=== PATIENT | male | born 1965 | race Hispanic/Latino ===

== ENCOUNTER 2016-06-05 23:05 | Inpatient (IN) | payer MEDICAID ==
[2016-06-05 23:22] VITALS: BMI 27.1
--- NOTE | 2016-06-05 23:22 | ED PDOC ---
Arrival/HPI - General Time Seen by Provider: 06/05/16 23:07 Historian: Patient - History of Present Illness Narrative History of Present Illness (Text): 06/05/16 23:19 Elvis Ybarra is a 50 year old male, whose past medical history includes tachy -viki syndrome s/p pacemaker placement, paroxysmmal atrial fibrillation, cardiomyopathy, hypertension, PUD, alcohol abuse, perforated ulcer/GI bleed, and gastric bypass, who presents to the ED complaining of palpitations. Patient states he was sitting at home prior to arrival when he began experiencing palpitations with associated mid-sternal chest pain. Patient reports symptoms feel similar to previous episodes of atrial fibrillation. Patient on arrival to ED found to be in rapid atrial fibrillation. Patient denies any fever, chills, shortness of breath, nausea, vomiting, diarrhea, urinary symptoms, back pain, neck pain, headache, dizziness, or any other complaints. Time/Duration: Other (tonight) Symptom Onset: Sudden Symptom Course: Unchanged Activities at Onset: Rest, Light Context: Sitting, Home Past Medical History - Provider Review Nursing Documentation Reviewed: Yes - Past History Past History: No Previous (hx of afib, svt) - Infectious Disease Hx of Infectious Diseases: None - Tetanus Immunization Tetanus Immunization: Unknown - Cardiac Hx Cardiac Disorders: Yes Hx Cardiac Arrhythmia: Yes (svt palpitations a fib) Hx Pacemaker: Yes Hx Peripheral Edema: Yes Other/Comment: truncus arteriosis congenital heart disease, sick sinus syndrome , malfunction of heart rhythm, cardiomyopathy - Pulmonary Hx Chronic Obstructive Pulmonary Disease (COPD): No - Neurological HX Cerebrovascular Accident: No Hx Dizziness: Yes Hx Seizures: (pt denies) - HEENT Hx HEENT Disorder: Yes (eyeglasses) Hx Blind: No Hx Cataracts: No Hx Deafness: No Hx Difficulty Chewing: No Hx Epistaxis: No Hx Glaucoma: No Hx Macular Degeneration: No Other/Comment: 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 related noise exposure - Renal Hx Renal Failure: No - Endocrine/Metabolic Hx Diabetes Mellitus Type 1: No Hx Diabetes Mellitus Type 2: No Hx Hypothyroidism: No - Hematological/Oncological Hx AIDS: No Hx Anemia: No Hx Cancer: No Hx Chemotherapy: No Hx Cirrhosis: No Hx Hemophilia: No Hx Hepatitis A: No Hx Hepatitis B: No Hx Hepatitis C: No Hx Metastasis: No Hx Shingles: No Hx Sickle Cell Disease: No Hx Unexplained Bleeding: No - Integumentary Hx Dermatological Disorder: No Hx Basal Cell Carcinoma: No Hx Eczema: No Hx Melanoma: No Hx Psoriasis: No Hx Squamous Cell Carcinoma: No Other/Comment: tatoos, bruise to left abd and rib area - Musculoskeletal/Rheumatological Hx Falls: Yes (fell in bathroom last night at home) - Gastrointestinal Hx Gastrointestinal Disorders: Yes Hx Colostomy: No Hx Crohn's Disease: No Hx Diverticulitis: No Hx Gall Bladder Disease: No Hx Gastroesophageal Reflux: Yes Hx Ileostomy: No Hx Liver Failure: No Hx Pancreatitis: No HX Swallowing Problems: No Other/Comment: perforated ulcer X2, had sx twice, rectal bleeding due to perforations - Genitourinary/Gynecological Hx Hematuria: No Hx Incontinence: No Hx Prostate Problems: No Hx Sexually Transmitted Diseases: No Hx Urinary Tract Infection: No - Psychiatric Hx Substance Use: (pt denies) - Surgical History Hx Amputation: No Hx Appendectomy: No Hx Cardiac Catheterization: No Hx Cholecystectomy: No Hx Coronary Stent: No Hx Gastric Bypass Surgery: Yes (around 10 yrs ago used to weigh 360 lbs) Hx Hysterectomy: No Hx Joint Replacement: No Hx Kidney Transplant: No Hx Liver Transplant: No Hx Mastectomy: No Hx Musculoskeletal Surgery: No Hx Open Heart Surgery: No Hx Orthopedic Surgery: No Hx Splenectomy: No Hx Valve Replacement: No - Anesthesia Hx Anesthesia: Yes Hx Anesthesia Reactions: No Hx Malignant Hyperthermia: No - Suicidal Assessment Feels Threatened In Home Enviroment: No Family/Social History - Physician Review Nursing Documentation Reviewed: Yes Family/Social History: No Known Family HX Smoking Status: cigar 2x/y Hx Alcohol Use: Yes (1 case beer daily) Amount per day: 6 Hx Substance Use: (pt denies) Hx Substance Use Treatment: No Allergies/Home Meds Allergies/Adverse Reactions: Allergies No Known Allergies Allergy (Verified 04/19/16 23:35) Home Medications: Home Meds Medication Instructions Recorded Confirmed Ferrous Sulfate [Feosol] 324 mg PO TID 04/19/16 06/07/16 Multivitamin [Multivitamins] 1 cap PO DAILY 04/19/16 06/07/16 Review of Systems - Physician Review All systems were reviewed & negative as marked: Yes - Review of Systems Constitutional: Normal. absent: Fevers Eyes: Normal ENT: Normal Respiratory: Normal. absent: SOB, Cough Cardiovascular: Chest Pain, Palpitations Gastrointestinal: Normal. absent: Abdominal Pain, Diarrhea, Nausea, Vomiting Genitourinary Male: Normal. absent: Dysuria, Frequency, Hematuria, Urinary Output Changes Musculoskeletal: Normal. absent: Back Pain, Neck Pain Skin: Normal. absent: Rash Neurological: Normal. absent: Headache, Dizziness Endocrine: Normal Hemo/Lymphatic: Normal Psychiatric: Normal Physical Exam Vital Signs Reviewed: Yes Vital Signs Temp Pulse Resp BP Pulse Ox 06/06/16 01:15 109 H 17 123/57 L 100 06/06/16 00:54 108 H 17 125/67 100 06/06/16 00:29 93 H 16 117/63 100 06/06/16 00:04 96 H 15 123/63 99 06/05/16 23:36 105 H 18 108/62 98 06/05/16 23:25 176 H 128/56 L 06/05/16 23:06 97.7 F 171 H 18 128/54 L 99 Temperature: Afebrile Blood Pressure: Normal Pulse: Tachycardic Respiratory Rate: Normal Appearance: Positive for: Well-Appearing, Non-Toxic, Comfortable Pain Distress: None Mental Status: Positive for: Alert and Oriented X 3 - Systems Exam Head: Present: Atraumatic, Normocephalic Pupils: Present: PERRL Extroacular Muscles: Present: EOMI Conjunctiva: Present: Normal Mouth: Present: Moist Mucous Membranes Neck: Present: Normal Range of Motion Respiratory/Chest: Present: Clear to Auscultation, Good Air Exchange. No: Respiratory Distress, Accessory Muscle Use Cardiovascular: Present: Normal S1, S2, Irregular Rhythm (Irregular, regular), Tachycardic. No: Murmurs Abdomen: Present: Normal Bowel Sounds. No: Tenderness, Distention, Peritoneal Signs Back: Present: Normal Inspection Upper Extremity: Present: Normal Inspection. No: Cyanosis, Edema Lower Extremity: Present: Normal Inspection. No: Edema Neurological: Present: GCS=15, CN II-XII Intact, Speech Normal Skin: Present: Warm, Dry, Normal Color. No: Rashes Psychiatric: Present: Alert, Oriented x 3, Normal Insight, Normal Concentration Medical Decision Making ED Course and Treatment: 06/05/16 23:19 Impression: 50 year old male c/o palpitations and mid-sternal chest pain tonight prior to arrival. Differential Diagnosis included but are not limited to: atrial fibrillation vs. ACS vs. chest pain Plan: -- EKG -- CXR -- Labs, cardiac enzymes -- Cardizem -- Reassess and disposition Prior Visits: Notes and results from previous visits were reviewed. On 05/16/2016, pt was seen in the ED for palpitations. Pt was admitted to the hospital for further evaluation. Progress Notes: Reviewed EKG, a fib at 172 bpm. Rapid ventricular response. Non-specific ST/T wave changes. 06/06/16 00:11 Reviewed radiology, Chest X-ray shows mild cardiomegaly, no pneumonia, no infiltrates. 06/06/16 01:09 Case discussed with medical manager application integration specialist, who is aware and agrees with plan. 06/06/16 01:[address] Caal, who is aware and agrees with plan. Accepts pt in to hospitalist service. Pt will be admitted to Telemetry for atrial fibrillation and chest pain. Pt is no acute distress. Discussed results and hospital admission plan with pt, who is aware and verbalizes understanding. - Lab Interpretations Lab Results: 06/05/16 23:09 06/06/16 00:20 Lab Results 06/06/16 00:24: Alcohol, Quantitative 281 H 06/06/16 00:20: Sodium 127 L, Potassium 4.5, Chloride 97 L, Carbon Dioxide 18 L , Anion Gap 17, BUN 7, Creatinine 0.7, Est GFR ( Amer) > 60, Est GFR (Non -Af Amer) > 60, Random Glucose 89, Calcium 8.6, Total Bilirubin 0.7, AST 69 H, ALT 20, Alkaline Phosphatase 103, Lactate Dehydrogenase 345, Total Creatine Kinase 24 L, Troponin I < 0.01 D, Total Protein 7.5, Albumin 3.6, Globulin 3.9 , Albumin/Globulin Ratio 0.9 L 06/05/16 23:09: WBC 5.5, RBC 4.78, Hgb 14.4, Hct 40.1 L, MCV 83.9, MCH 30.1, MCHC 35.9, RDW 17.6 H, Plt Count 356, MPV 10.4, Gran % 53.3, Lymph % (Auto) 35.0 , Marshall % (Auto) 10.6 H, Eos % (Auto) 0.4 L, Baso % (Auto) 0.7, Gran # 2.90, Lymph # 1.9, Marshall # 0.6, Eos # 0.0, Baso # 0.04, PT 10.6, INR 0.98, APTT 29.8 I have reviewed the lab results: Yes - RAD Interpretation Narrative RAD Interpretations (Text): Chest X-ray shows mild cardiomegaly, no pneumonia, no infiltrates. Radiology Orders: 06/05/16 23:27 CHEST PORTABLE [RAD] Stat Open Hearth Helper: ED Physician - EKG Interpretation Interpreted by ED Physician: Yes Type: 12 lead EKG Comparison: Com.w/previous EKG - Medication Orders Current Medication Orders: Discontinued Medications Aspirin (Aspirin Chewable) 81 mg PO DAILY [facility] Last Admin: 06/07/16 09:24 Dose: 81 MG Digoxin (Lanoxin) 0.125 mg PO 1400 [facility] Last Admin: 06/07/16 11:56 Dose: 0.125 MG MAR Apical Pulse Rate Document 06/07/16 11:56 DAMON (Rec: 06/07/16 11:56 DAMON [id number]) Apical Pulse Rate Apical Pulse Rate (60-90 beats/min) 71 Diltiazem HCl (Cardizem) 20 mg IVP STAT STA Stop: 06/05/16 23:29 Last Admin: 06/05/16 23:25 Dose: 20 MG MAR Pulse and Blood Pressure Document 06/05/16 23:25 RD (Rec: 06/05/16 23:36 RD [id number]) Pulse Pulse Rate (60-90) 176 Blood Pressure Blood Pressure (100/60-150/90) 128/56 IVP Administration Document 06/05/16 23:25 RD (Rec: 06/05/16 23:36 RD [id number]) Charges for Administration # of IVP Administrations 1 Diphenhydramine HCl (Benadryl) 25 mg PO ONCE ONE Stop: 06/07/16 11:41 Last Admin: 06/07/16 11:56 Dose: 25 MG Docusate Sodium (Colace) 100 mg PO BID [facility] Last Admin: 06/07/16 09:23 Dose: 100 MG Stool Assessment Document 06/07/16 09:23 DAMON (Rec: 06/07/16 09:23 DAMON [id number]) Pattern Bowel Pattern No Bowel Movement Ferrous Sulfate (Feosol) 324 mg PO TID [facility] Last Admin: 06/07/16 14:46 Dose: 324 MG Folic Acid (Folic Acid) 1 mg PO DAILY [facility] Last Admin: 06/07/16 09:23 Dose: 1 MG Heparin Sodium (Porcine) (Heparin) 5,000 units SC Q12 [facility] PRN Reason: Protocol Last Admin: 06/07/16 09:24 Dose: 5,000 UNITS Subcutaneous Administrations Document 06/07/16 09:24 DAMON (Rec: 06/07/16 09:24 DAMON [id number]) Injection Site MAR Injection Site Left Abdomen Charges for Administration # of Subcutaneous Administrations 1 diltiaZEM IVPB 100mg in NS (Cardizem 100mg In Ns) 100 mls @ 5 mls/hr IV .Q20H PRN; Protocol; 5 MG/HR PRN Reason: TITRATE PER MD ORDER Last Admin: 06/06/16 20:51 Dose: 5 MLS/HR Titration Intervention Document 06/06/16 20:51 RAFAEL (Rec: 06/06/16 20:51 BK [id number]) Titration Intake Container Volume 100 Titration Dosing Titration Dose 5 IV Rate 5 Intake/Decrease Running eMAR Start Stop Document 06/06/16 20:51 BK (Rec: 06/06/16 20:51 BK [id number]) Intravenous Solution Start Date 06/06/16 Start Time 20:51 Sodium Chloride (Sodium Chloride 0.9%) 1,000 mls @ 100 mls/hr IV .Q10H [facility] Last Admin: 06/06/16 02:26 Dose: 100 MLS/HR eMAR Start Stop Document 06/06/16 02:26 RD (Rec: 06/06/16 02:26 RD [id number]) Intravenous Solution Start Date 06/06/16 Start Time 02:26 Lisinopril (Zestril) 2.5 mg PO DAILY [facility] Last Admin: 06/07/16 09:23 Dose: 2.5 MG MAR Pulse and Blood Pressure Document 06/07/16 09:23 DAMON (Rec: 06/07/16 09:24 DAMON [id number]) Pulse Pulse Rate (60-90) 87 Blood Pressure Blood Pressure (100/60-150/90) 128/80 Lorazepam (Ativan) 1 mg IVP Q6H PRN; Protocol PRN Reason: Withdrawal Last Admin: 06/07/16 06:50 Dose: 1 MG Behavioural Document 06/07/16 06:50 BK (Rec: 06/07/16 06:50 BK [facility] [id number] Maintenance Maintenance Dose No Nonmedicinal Nonmedicinal Interventions Redirect Behavior Behavior for Medication: Anxiety IVP Administration Document 06/07/16 06:50 BK (Rec: 06/07/16 06:50 BK [facility] [id number] Charges for Administration # of IVP Administrations 1 Re-Assess: Reassess Psych Meds Document 06/07/16 07:20 DAMON (Rec: 06/07/16 09:17 AZAMENE [id number]) Reassess Psych Med Effective Metoprolol Tartrate (Lopressor) 50 mg PO BID [facility] Last Admin: 06/07/16 09:23 Dose: 50 MG [facility] Pulse and Blood Pressure Document 06/07/16 09:23 DAMON (Rec: 06/07/16 09:23 [id number] Pulse Pulse Rate (60-90) 87 Blood Pressure Blood Pressure (100/60-150/90) 128/80 Morphine Sulfate (Morphine) 1 mg IVP STAT STA Stop: 06/06/16 09:22 Last Admin: 06/06/16 09:42 Dose: 1 MG MAR Pain Assessment Document 06/06/16 09:42 AE (Rec: 06/06/16 09:43 AE [facility] [id number] Pain Reassessment Is this a pain reassessment? Yes Sleep Is patient sleeping during reassessment? No Presence of Pain Presence of Pain Yes Pain Scale Used Pain Scale Used Numeric Location Left, Right or Bilateral Bilateral Pain Location Body Site Back Description Description Intermittent Intensity of Pain at present 8 Acceptable Level of Pain 2 Pain Behavior Guarding Aggravating Factors Changing Position Alleviating Factors/Management Medication Techniques Alleviating Factors Medication IVP Administration Document 06/06/16 09:42 AE (Rec: 06/06/16 09:43 AE [facility] [id number] Charges for Administration # of IVP Administrations 1 Re-Assess: MAR Pain Assessment Document 06/06/16 10:42 AE (Rec: 06/06/16 17:09 AE [id number]) Pain Reassessment Is this a pain reassessment? Yes Sleep Is patient sleeping during reassessment? Yes Multivitamins/Minerals (Therapeutic-M Tab) 1 tab PO DAILY [facility] Last Admin: 06/07/16 09:23 Dose: 1 TAB Oxycodone HCl (Oxycodone Immediate Release Tab) 5 mg PO Q8H PRN PRN Reason: Pain, moderate (4-7) Last Admin: 06/07/16 13:16 Dose: 5 MG [facility] Pain Assessment Document 06/07/16 13:16 DAMON (Rec: 06/07/16 13:17 DAMON [id number]) Pain Reassessment Is this a pain reassessment? No Sleep Is patient sleeping during reassessment? No Presence of Pain Presence of Pain Yes Pain Scale Used Pain Scale Used Numeric Description Description Chronic Intensity of Pain at present 9 Aggravating Factors None Alleviating Factors/Management Medication Techniques Alleviating Factors Medication Re-Assess: [facility] Pain Assessment Document 06/07/16 14:16 AZAMENE (Rec: 06/07/16 15:10 AZAMENE [id number] ) Pain Reassessment Is this a pain reassessment? Yes Sleep Is patient sleeping during reassessment? No Presence of Pain Presence of Pain No Pantoprazole Sodium (Protonix Ec Tab) 40 mg PO 0730,1630 [facility] Last Admin: 06/07/16 16:00 Dose: Not Given Non-Admin Reason: Patient Refused Thiamine HCl (Vitamin B1 Tab) 100 mg PO DAILY [facility] Last Admin: 06/07/16 09:23 Dose: 100 MG Tramadol HCl (Ultram) 50 mg PO TID PRN PRN Reason: Pain, moderate (4-7) Last Admin: 06/07/16 00:53 Dose: 50 MG [facility] Pain Assessment Document 06/07/16 00:53 RAFAEL (Rec: 06/07/16 00:54 RAFAEL [facility] [id number] Pain Reassessment Is this a pain reassessment? No Presence of Pain Presence of Pain Yes Pain Scale Used Pain Scale Used Numeric Location Pain Location Body Site Back Description Description Constant Intensity of Pain at present 8 Re-Assess: [facility] Pain Assessment Document 06/07/16 01:53 RAFAEL (Rec: 06/07/16 04:59 RAFAEL [facility] [id number] Pain Reassessment Is this a pain reassessment? Yes Sleep Is patient sleeping during reassessment? Yes - Scribe Statement The provider has reviewed the documentation as recorded by the Umer Jensen Provider Attestation: All medical record entries made by the Scribe were at my direction and personally dictated by me. I have reviewed the chart and agree that the record accurately reflects my personal performance of the history, physical exam, medical decision making, and the department course for this patient. I have also personally directed, reviewed, and agree with the discharge instructions and disposition. Disposition/Present on Arrival - Present on Arrival Any Indicators Present on Arrival: No History of DVT/PE: No History of Uncontrolled Diabetes: No Urinary Catheter: No History Surgical Site Infection Following: None - Disposition Have Diagnosis and Disposition been Completed?: Yes Diagnosis: Atrial fibrillation or flutter, Alcohol abuse Disposition: HOSPITALIZED Disposition Time: 01:25 Patient Problems: Current Active Problems Problem Status Diagnosed Paroxysmal a-fib Acute Atrial fibrillation Acute Thrombocytopenia Acute Anemia Chronic Condition: GOOD
[2016-06-05 23:54] LABS: ADD MANUAL DIFF? NO
[2016-06-06 00:13] LABS: INR 0.98 (0.93-1.08); PARTIAL THROMBOPLASTIN TIME 29.8 Seconds (23.7-30.8)
[2016-06-06 00:17] LABS: BASO # 0.04 K/mm3 (0.0-2.0); BASO % 0.7 % (0.0-3.0); EOS % 0.4 % (1.5-5.0); GRAN % 53.3 % (50.0-68.0); HEMATOCRIT 40.1 % (42.0-52.0); LYMPH # 1.9 (1.2-3.4); MEAN CELL VOLUME 83.9 fL (80.0-105.0); MEAN CORPUSCULAR HEMOGLOBIN 30.1 pg (25.0-35.0); MEAN CORPUSCULAR HGB CONC 35.9 g/dl (31.0-37.0); MEAN PLATELET VOLUME 10.4 fl (7.0-11.0); MONO # 0.6 (0.1-0.6); MONO % 10.6 % (1.0-6.0); PLATELET COUNT 356 10^3/uL (120.0-450.0); RED CELL DISTRIBUTION WIDTH 17.6 % (11.5-14.5); WHITE BLOOD COUNT 5.5 10^3/ul (4.5-11.0)
[2016-06-06] MEDS: diltiaZEM IVPB 100mg in NS 100 ML IV PRN ×3 (00:26→20:51)
[2016-06-06 00:52] LABS: ALB/GLOB RATIO 0.9 (1.1-1.8); ALKALINE PHOSPHATASE 103 U/L (38-133); ALT/SGPT 20 U/L (7-56); AST/SGOT 69 U/L (15-59); BILIRUBIN,TOTAL 0.7 mg/dL (0.2-1.3); BLOOD UREA NITROGEN 7 mg/dL (7-21); CALCIUM 8.6 mg/dL (8.4-10.5); CARBON DIOXIDE 18 mmol/L (21-33); CHLORIDE 97 mmol/L (98-107); GFR AFRICAN-AMERICAN > 60; GLUCOSE,RANDOM 89 mg/dL (70-110); POTASSIUM 4.5 mmol/L (3.6-5.0); SODIUM 127 mmol/L (132-148); TOTAL PROTEIN 7.5 g/dL (5.8-8.3)
[2016-06-06 01:04] LABS: TROPONIN I < 0.01 ng/mL
--- NOTE | 2016-06-06 01:50 | CP.PCM.HP ---
<Karson Renner - Last Filed: 06/06/16 02:18> History of Present Illness - History of Present Illness History of Present Illness: CC: Chest pressure HPI: This is a 50 yo M with PMH of paroxysmal AFib, tachy-viki syndrome s/p pacer, HTN, Cardiomyopathy, alcohol abuse, peptic ulcer disease s/ p 2 perforations (surgically repaired), GI bleed came to ED sensation of chest pressure and general malaise that he experiences whenever he develops rapid afib. He has been admitted to [facility] on numerous prior occasions, frequently for similar complaint; he was last discharged on 05/17/16. He states that the feeling of pressure and malaise began this morning, and did not get better with lying down and trying to rest. As a result of not feeling well, he did not take his AM beta-mariusz dose. He claims to otherwise be compliant with his medications. He admits to some dizziness, mild shortness of breath, and back pain, but denies fever/chills, tremors, syncope/near-syncope, vision changes, nausea/emesis, abdominal pain, diarrhea/constipation, dyusria/hematuria, or focal weakness. In the ED, his HR was recorded in the 170's, not resolved with Cardizem 20mg IVP stat, so he was placed on a Cardizem drip. PMH: as above, also claims to have sciatica PSH: pacemaker placement 04/2015, gastric bypass 10yrs ago, perforated ulcer repair x2 FHx: Ovarian Ca (Mother), Liver Ca (Father), DM (Mother) SHx: Active alcohol abuser (5-6 drinks per day, last drink ~6-7 hrs prior to presentation), Intermittent tobacco use (occasional cigars, denies cigarettes/ chew), denies illicits/IVDA PMD: Dr. Gandhi Present on Admission - Present on Admission Any Indicators Present on Admission: No History of DVT/PE: No History of Uncontrolled Diabetes: No Urinary Catheter: No Review of Systems - Constitutional Constitutional: Malaise, Weakness (generalized weakness/malaise). absent: Chills, Fever - EENT Eyes: absent: Blurred Vision, Change in Vision, Loss of Vision Ears: Dizziness (concurrent with chest pressure, not alleviated with rest, resolved by time of exam) Nose/Mouth/Throat: absent: Dysphagia, Sore Throat, Neck Pain - Cardiovascular Cardiovascular: Chest Pain (described as pressure, diffuse, no focal area), Dyspnea (mild shortness of breath concurrent with chest pressure), Palpitations , Rapid Heart Rate. absent: Pain Radiating to Arm/Neck/Jaw, Syncope - Respiratory Respiratory: Dyspnea (mild shortness of breath concurrent with chest pressure). absent: Cough, Hemoptysis, Pain on Inspiration - Gastrointestinal Gastrointestinal: absent: Abdominal Pain, Constipation, Diarrhea, Hematochezia, Melena, Nausea, Vomiting - Genitourinary Genitourinary: absent: Difficulty Urinating, Dysuria, Flank Pain, Hematuria - Musculoskeletal Musculoskeletal: Back Pain (baseline, unchanged). absent: Muscle Weakness - Integumentary Integumentary: absent: Pruritus, Rash - Neurological Neurological: Dizziness, Weakness (generalized weakness/malaise). absent: Numbness, Focal Weakness, Loss of Vision, Syncope, Other Visual Disturbances - Psychiatric Psychiatric: Anxiety - Endocrine Endocrine: Palpitations. absent: Fatigue Past Patient History - Infectious Disease Hx of Infectious Diseases: None - Tetanus Immunizations Tetanus Immunization: Unknown - Past Medical History & Family History Past Medical History?: Yes - Past Social History Smoking Status: cigar 2x/y - CARDIAC Hx Cardiac Disorders: Yes Hx Cardia Arrhythmia: Yes (svt palpitations a fib) Hx Pacemaker: Yes Hx Peripheral Edema: Yes Other/Comment: truncus arteriosis congenital heart disease, sick sinus syndrome , malfunction of heart rhythm, cardiomyopathy - PULMONARY Hx Chronic Obstructive Pulmonary Disease (COPD): No - NEUROLOGICAL HX Cerebrovascular Accident: No Hx Dizziness: Yes Hx Seizures: (pt denies) - HEENT Hx HEENT Problems: Yes (eyeglasses) Hx Blind: No Hx Cataracts: No Hx Deafness: No Hx Difficulty Chewing: No Hx Epistaxis: No Hx Glaucoma: No Hx Macular Degeneration: No Other/Comment: 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 related noise exposure - RENAL Hx Renal Failure: No - ENDOCRINE/METABOLIC Hx Diabetes Mellitus Type 1: No Hx Diabetes Mellitus Type 2: No Hx Hypothyroidism: No - HEMATOLOGICAL/ONCOLOGICAL Hx AIDS: No Hx Anemia: No Hx Cancer: No Hx Chemotherapy: No Hx Cirrhosis: No Hx Hemophilia: No Hx Hepatitis A: No Hx Hepatitis B: No Hx Hepatitis C: No Hx Metastesis: No Hx Shingles: No Hx Sickle Cell Disease: No Hx Unexplained Bleeding: No - INTEGUMENTARY Hx Dermatological Problems: No Hx Basil Cell: No Hx Eczema: No Hx Melanoma: No Hx Psoriasis: No Hx Squamous Cell: No Other/Comment: tatoos, bruise to left abd and rib area - MUSCULOSKELETAL/RHEUMATOLOGICAL Hx Falls: Yes (fell in bathroom last night at home) - GASTROINTESTINAL Hx Gastrointestinal Disorders: Yes Hx Colostomy: No Hx Crohn's Disease: No Hx Diverticulitis: No Hx Gall Bladder Disease: No Hx Gastroesophageal Reflux: Yes Hx Ileostomy: No Hx Liver Failure: No Hx Pancreatitis: No HX Swallowing Problems: No Other/Comment: perforated ulcer X2, had sx twice, rectal bleeding due to perforations - GENITOURINARY/GYNECOLOGICAL Hx Hematuria: No Hx Incontinence: No Hx Prostate Problems: No Hx Sexually Transmitted Disorders: No Hx Urinary Tract Infection: No - PSYCHIATRIC Hx Substance Use: (pt denies) - SURGICAL HISTORY Hx Amputation: No Hx Appendectomy: No Hx Cardiac Catheterization: No Hx Cholecystectomy: No Hx Coronary Stent: No Hx Gastric Bypass Surgery: Yes (around 10 yrs ago used to weigh 360 lbs) Hx Hysterectomy: No Hx Joint Replacement: No Hx Kidney Transplant: No Hx Liver Transplant: No Hx Mastectomy: No Hx Musculoskeletal Surgery: No Hx Open Heart Surgery: No Hx Orthopedic Surgery: No Hx Splenectomy: No Hx Valve Replacement: No - ANESTHESIA Hx Anesthesia: Yes Hx Anesthesia Reactions: No Hx Malignant Hyperthermia: No Meds Allergies/Adverse Reactions: Allergies Allergy/AdvReac Type Severity Reaction Status Date / Time No Known Allergies Allergy Verified 04/19/16 23:35 Physical Exam - Constitutional Appears: Well, Non-toxic, No Acute Distress - Head Exam Head Exam: ATRAUMATIC, NORMAL INSPECTION, NORMOCEPHALIC - Eye Exam Eye Exam: EOMI, Normal appearance. absent: Conjunctival injection, Scleral icterus Pupil Exam: absent: Irregular, Unequal - ENT Exam ENT Exam: Mucous Membranes Moist - Respiratory Exam Respiratory Exam: Clear to Auscultation Bilateral, NORMAL BREATHING PATTERN. absent: Accessory Muscle Use, Chest Wall Tenderness, Decreased Breath Sounds, Rales, Rhonchi, Wheezes Additional comments: wearing NC, on 2L - Cardiovascular Exam Cardiovascular Exam: Tachycardia, Irregular Rhythm, +S1, +S2. absent: Bradycardia, REGULAR RHYTHM, RRR, +S4 Additional comments: rapid but irregular rate (rate on bedside monitor during exam 90's-150's) irregular rhythm - GI/Abdominal Exam GI & Abdominal Exam: Normal Bowel Sounds, Soft. absent: Diminished Bowel Sounds , Distended, Firm, Hyperactive Bowel Sounds, Hypoactive Bowel Sounds, Rigid, Tenderness - Rectal Exam Rectal Exam: Deferred - Extremities Exam Extremities exam: Negative for: calf tenderness, pedal edema, tenderness - Neurological Exam Neurological exam: Alert, Oriented x3 - Psychiatric Exam Psychiatric exam: Normal Affect, Normal Mood - Skin Skin Exam: Dry, Intact, Normal Color, Warm Results - Vital Signs Recent Vital Signs: Last Vital Signs Temp 97.7 F 06/05/16 23:06 Pulse 109 H 06/06/16 01:15 Resp 17 06/06/16 01:15 BP 123/57 L 06/06/16 01:15 Pulse Ox 100 06/06/16 01:15 - Labs Result Diagrams: 06/05/16 23:09 06/06/16 00:20 Assessment & Plan - Assessment and Plan (Free Text) Assessment: This is a 50 yo M with PMH of paroxysmal AFib, tachy-viki syndrome s/ p pacer, HTN, Cardiomyopathy, alcohol abuse, peptic ulcer disease s/p 2 perforations (surgically repaired), GI bleed came to ED sensation of chest pressure and general malaise associated with rapid heart rate. He is being admitted for AFib with RVR requiring Cardizem Drip for management. Plan: 1) Rapid afib -2/2 alcohol abuse vs medication non-compliance vs AR vs 2/2 thyroid -EtOH level ordered -EKG notable for AFib with RVR at 172 bpm, repeat EKG in AM -Trop x1 negative, trending 2 more q8 -Cardio consulted, appreciate any recs -aspirin 81mg daily ordered, AC with heparin SC 5000u q12 -Not improved with Cardizem 20mg IVP x1 in ED, started on Cardizem drip at 5mg/ hr, can titrate up further if needed -Charting indicates previously on Synthroid, holding for now and ordered TSH/T4/ Free T4 2) Alcohol abuse -Chronic issue for this patient -[facility] protocol for possible withdrawal in place -Ativan IV 1mg q6 PRN for withdrawal -Folic acid, B12, B1 levels ordered -Continue thiamine and folate supplementation, multivitamin 3) Hx Gastric Bypass s/p perforations x2 -Protonix 40mg PO BID Dispo: Telemetry as inpatient for AFib with RVR requiring Cardizem drip FEN: Heart-healthy decaf, NS 100cc/hr Access: Peripheral IV Consults: Cardio Ppx: Protonix covers GI, Heparin covers for DVT Patient seen, reviewed, and discussed with attending, Dr. Caal - Date & Time Date: 06/06/16 Time: 02:17 Decision To Admit - Pt Status Changed To: Hospital Disposition Of: Inpatient Admission - Admit Certification Admit to Inpatient:: After my assessment, the patient will require hospitalization for at least two midnights. This is because of the severity of symptoms shown, intensity of services needed, and/or the medical risk in this patient being treated as an outpatient. - . Bed Request Type: Telemetry <Edwin Caal - Last Filed: 06/06/16 05:50> Results - Vital Signs Recent Vital Signs: Last Vital Signs Temp 97.9 F 06/06/16 03:43 Pulse 100 H 06/06/16 05:20 Resp 20 06/06/16 03:43 BP 125/72 06/06/16 03:43 Pulse Ox 98 06/06/16 03:43 - Labs Result Diagrams: 06/05/16 23:09 06/06/16 00:20 Attending/Attestation - Attestation I have personally seen and examined this patient.: Yes I have fully participated in the care of the patient.: Yes I have reviewed all pertinent clinical information: Yes Notes (Text): 06/06/16 05:50 Patient was seen when he was in bed # 8 in the ER. Agree with history , physical examination assessment and plan.
[2016-06-06] MEDS ORDERED: Sodium Chloride 0.9% 1,000 ML IV SCH (02:15)
[2016-06-06 08:32] LABS: ADD MANUAL DIFF? NO
[2016-06-06 08:34] LABS: BASO # 0.02 K/mm3 (0.0-2.0); BASO % 0.5 % (0.0-3.0); EOS % 0.2 % (1.5-5.0); GRAN # 2.36 (1.4-6.5); GRAN % 58.6 % (50.0-68.0); HEMATOCRIT 37.5 % (42.0-52.0); LYMPH # 1.2 (1.2-3.4); MEAN CELL VOLUME 84.1 fL (80.0-105.0); MEAN CORPUSCULAR HEMOGLOBIN 29.6 pg (25.0-35.0); MEAN CORPUSCULAR HGB CONC 35.2 g/dl (31.0-37.0); MEAN PLATELET VOLUME 9.6 fl (7.0-11.0); MONO # 0.4 (0.1-0.6); MONO % 10.7 % (1.0-6.0); PLATELET COUNT 229 10^3/uL (120.0-450.0); RED CELL DISTRIBUTION WIDTH 17.1 % (11.5-14.5)
[2016-06-06] MEDS: Pantoprazole 40 mg EC Tab PO SCH ×2 (08:36→17:10)
[2016-06-06 08:45] LABS: ALKALINE PHOSPHATASE 141 U/L (38-133); ALT/SGPT 30 U/L (7-56); AST/SGOT 93 U/L (15-59); BILIRUBIN,TOTAL 0.9 mg/dL (0.2-1.3); BLOOD UREA NITROGEN 7 mg/dL (7-21); CALCIUM 9.2 mg/dL (8.4-10.5); CARBON DIOXIDE 21 mmol/L (21-33); CHLORIDE 101 mmol/L (98-107); GFR AFRICAN-AMERICAN > 60; GLUCOSE,RANDOM 106 mg/dL (70-110); MAGNESIUM 1.7 mg/dL (1.7-2.2); PHOSPHOROUS 4.5 mg/dL (2.5-4.5); POTASSIUM 4.4 mmol/L (3.6-5.0); SODIUM 134 mmol/L (132-148); TOTAL PROTEIN 7.9 g/dL (5.8-8.3)
[2016-06-06 08:50] LABS: INR 0.99 (0.93-1.08); PARTIAL THROMBOPLASTIN TIME 28.6 Seconds (23.7-30.8)
[2016-06-06 08:59] LABS: TROPONIN I < 0.01 ng/mL
[2016-06-06] MEDS ORDERED: Morphine 2 mg/ml ISec IVP STA (09:21)
[2016-06-06] MEDS: Multivitamin With Minerals Tab PO SCH (09:41)
--- NOTE | 2016-06-06 10:10 | CARD ---
APPROVED REPORT EKG Measurement Heart [id number] <Conclusion> Atrial fibrillation with rapid ventricular response ST & T wave abnormality, consider anterolateral ischemia Since ECG 05/16/16: the rate has increased and there are ST changes c/w ischemia.
--- NOTE | 2016-06-06 12:09 | RAD ---
HISTORY: cp COMPARISON: Comparison is made to the previous study dated 05/16/2016 FINDINGS: LUNGS: No evidence of new infiltrate or consolidation in the lungs. PLEURA: No significant pleural effusion identified, no pneumothorax apparent. CARDIOVASCULAR: Mild cardiomegaly is again noted. Left-sided single wire a ACD is again seen in place. OSSEOUS STRUCTURES: No significant abnormalities. VISUALIZED UPPER ABDOMEN: Normal. OTHER FINDINGS: None. IMPRESSION: No significant interval change compared to the previous study.
--- NOTE | 2016-06-06 13:01 | CARD ---
APPROVED REPORT EKG Measurement Heart [id number] <Conclusion> Atrial fibrillation with rapid ventricular response Nonspecific T wave abnormality, probably digitalis effect Abnormal ECG
[2016-06-06 14:02] LABS: FOLATE 12.8 ng/mL
[2016-06-07 05:52] VITALS: O2SAT 99
[2016-06-07 07:21] LABS: HEMATOCRIT 38.8 % (42.0-52.0); MEAN CELL VOLUME 87.2 fL (80.0-105.0); MEAN CORPUSCULAR HEMOGLOBIN 29.4 pg (25.0-35.0); MEAN CORPUSCULAR HGB CONC 33.8 g/dl (31.0-37.0); MEAN PLATELET VOLUME 9.8 fl (7.0-11.0); RED CELL DISTRIBUTION WIDTH 17.6 % (11.5-14.5); WHITE BLOOD COUNT 4.6 10^3/ul (4.5-11.0)
[2016-06-07 07:43] LABS: ALKALINE PHOSPHATASE 159 U/L (38-133); ALT/SGPT 47 U/L (7-56); AST/SGOT 165 U/L (15-59); BILIRUBIN,TOTAL 1.8 mg/dL (0.2-1.3); BLOOD UREA NITROGEN 8 mg/dL (7-21); CALCIUM 9.6 mg/dL (8.4-10.5); CARBON DIOXIDE 23 mmol/L (21-33); CHLORIDE 102 mmol/L (98-107); GFR AFRICAN-AMERICAN > 60; GLUCOSE,RANDOM 115 mg/dL (70-110); MAGNESIUM 1.8 mg/dL (1.7-2.2); PHOSPHOROUS 4.2 mg/dL (2.5-4.5); SODIUM 137 mmol/L (132-148)
[2016-06-07 07:44] LABS: FREE T4 1.19 ng/dL (0.78-2.19); T4 9.1 ug/dL (5.5-11.0)
[2016-06-07 07:57] LABS: THYROID STIMULATING HORMONE 8.88 mIU/mL (0.46-4.68)
[2016-06-07] MEDS: Pantoprazole 40 mg EC Tab PO SCH ×2 (08:36→16:00)
[2016-06-07] MEDS: Multivitamin With Minerals Tab PO SCH (09:23)
[2016-06-07] MEDS ORDERED: oxyCODONE 5 mg Immediate Release Tab PO PRN (11:39)
[2016-06-07] MEDS ORDERED: Digoxin 125 mcg (0.125 mg) Tab PO SCH (11:45)
[2016-06-07 11:57] VITALS: PULSE 71
[2016-06-07 12:54] VITALS: BP 107/71; RESP 19; TEMP 97.1
[2016-06-07 15:08] VITALS: PULSE 67
--- NOTE | 2016-06-07 16:15 | CP.PCM.DIS ---
<Vinnie Jesus - Last Filed: 06/07/16 15:49> Provider - Provider Date of Admission: 06/06/16 01:24 Attending physician: Tere Ndiaye MD Primary care physician: Kenneth Gandhi MD Time Spent in preparation of Discharge (in minutes): 45 Hospital Course - Lab Results Lab Results: Most Recent Lab Values WBC 4.6 10^3/ul (4.5-11.0) 06/07/16 06:20 RBC 4.45 10^6/uL (3.5-6.1) 06/07/16 06:20 Hgb 13.1 gm/dL (14.0-18.0) L 06/07/16 06:20 Hct 38.8 % (42.0-52.0) L 06/07/16 06:20 MCV 87.2 fL (80.0-105.0) 06/07/16 06:20 MCH 29.4 pg (25.0-35.0) 06/07/16 06:20 MCHC 33.8 g/dl (31.0-37.0) 06/07/16 06:20 RDW 17.6 % (11.5-14.5) H 06/07/16 06:20 Plt Count 231 10^3/uL (120.0-450.0) 06/07/16 06:20 MPV 9.8 fl (7.0-11.0) 06/07/16 06:20 Gran % 58.6 % (50.0-68.0) 06/06/16 08:10 Lymph % (Auto) 30.0 % (22.0-35.0) 06/06/16 08:10 [place] % (Auto) 10.7 % (1.0-6.0) H 06/06/16 08:10 Eos % (Auto) 0.2 % (1.5-5.0) L 06/06/16 08:10 Baso % (Auto) 0.5 % (0.0-3.0) 06/06/16 08:10 Gran # 2.36 (1.4-6.5) 06/06/16 08:10 Lymph # 1.2 (1.2-3.4) 06/06/16 08:10 [place] # 0.4 (0.1-0.6) 06/06/16 08:10 Eos # 0.0 (0.0-0.7) 06/06/16 08:10 Baso # 0.02 K/mm3 (0.0-2.0) 06/06/16 08:10 PT 10.7 Seconds (9.9-11.8) 06/06/16 08:10 INR 0.99 (0.93-1.08) 06/06/16 08:10 APTT 28.6 Seconds (23.7-30.8) 06/06/16 08:10 Sodium 137 mmol/L (132-148) 06/07/16 06:20 Potassium 4.0 mmol/L (3.6-5.0) 06/07/16 06:20 Chloride 102 mmol/L (98-107) 06/07/16 06:20 Carbon Dioxide 23 mmol/L (21-33) 06/07/16 06:20 Anion Gap 16 (10-20) 06/07/16 06:20 BUN 8 mg/dL (7-21) 06/07/16 06:20 Creatinine 0.6 mg/dL (0.5-1.4) 06/07/16 06:20 Est GFR ( Amer) > 60 06/07/16 06:20 Est GFR (Non-Af Amer) > 60 06/07/16 06:20 Random Glucose 115 mg/dL (70-110) H 06/07/16 06:20 Calcium 9.6 mg/dL (8.4-10.5) 06/07/16 06:20 Phosphorus 4.2 mg/dL (2.5-4.5) 06/07/16 06:20 Magnesium 1.8 mg/dL (1.7-2.2) 06/07/16 06:20 Total Bilirubin 1.8 mg/dL (0.2-1.3) H 06/07/16 06:20 AST 165 U/L (15-59) H 06/07/16 06:20 ALT 47 U/L (7-56) 06/07/16 06:20 Alkaline Phosphatase 159 U/L (38-133) H 06/07/16 06:20 Lactate Dehydrogenase 345 U/L (333-699) 06/06/16 00:20 Total Creatine Kinase 24 U/L (35-230) L 06/06/16 00:20 Troponin I < 0.01 ng/mL 06/06/16 14:03 Total Protein 8.0 g/dL (5.8-8.3) 06/07/16 06:20 Albumin 4.0 g/dL (3.0-4.8) 06/07/16 06:20 Globulin 4.0 gm/dL 06/07/16 06:20 Albumin/Globulin Ratio 1.0 (1.1-1.8) L 06/07/16 06:20 Vitamin B12 606 pg/mL (239-931) 06/06/16 08:10 Folate 12.8 ng/mL 06/06/16 08:10 Free T4 1.19 ng/dL (0.78-2.19) 06/07/16 06:20 Thyroxine (T4) 9.1 ug/dL (5.5-11.0) 06/07/16 06:20 TSH 3rd Generation 8.88 mIU/mL (0.46-4.68) H 06/07/16 06:20 Alcohol, Quantitative 281 mg/dL (0-10) H 06/06/16 00:24 - Hospital Course Hospital Course: Upon Admission: 50yo M with PMHx of paroxysmal AFib, Tachy-viki syndrome s/p pacemaker, HTN, Cardiomyopathy, ETOH abuse, Peptic Ulcer Disease s/p perforations (surgically repaired, GI bleed here for evaluation of chest pressure, palpitations. He has been admitted to the hospital multiple times for similar symptoms. Patient states that he has returned to drinking 24-pack of beer/day since his last discharge. In the ER, he was found to be in Afib with RVR. His alcohol level was elevated upon admission. ACS was ruled out with troponins negative x3. He was placed on cardizem drip and admitted to the tele floor. He was started to Metoprolol 50mg BID. The following day, Cardizem drip was stopped, Digoxin 0.125mg PO was started. Decision was made to not start the patient on any anticoagulation for the A.Fib due to his history of continued alcohol abuse. Patient's heart rate was improved and his symptoms improved. His HR has been stable in 60-70s on the day of discharge. He ambulated around the unit and has remained stable on his feet. Patient was cleared for discharge home with close follow up with his PMD and Senior Informatica Developer. Patient was urged to cease drinking alcohol immediately. All patient question were answered. Patient was given a comprehensive updated medication list. He was given a 2 day supply of Oxycodone for chronic back pain. Patient agrees with plan. 1. A.Fib w/ RVR; Resolved. secondary to ETOH abuse 2. ETOH abuse; cessation counseling. No signs of withdrawal during this admission Upon Discharge: Patient cleared for discharge as per Dr. Ndiaye 1. Follow up with your PMD within 3 days. 2. Follow up with your Senior Informatica Developer within one week 3. Updated medication list given to patient. (See Below) Patient states that he does not need any prescriptions. 4. Take Oxycodone for back pain sparingly. (Oxycodone 5mg PO TID prn prescription for 2 day supply given) 5. Abstain from further Alcohol use. 6. Return to the ER with any concerning symptoms. Medication List: 1. Metoprolol 50mg PO BID 2. Digoxin 0.125mg PO Daily 3. Levothyroxine 25mcg Daily 4. Lisinopril 2.5mg PO Daily 5. Thiamine 100mg PO daily 6. Colace 100mg PO BID 7. Ferrous Sulfate 324mg PO TID 8. Folic Acid 1mg PO Daily 9. Multivitamin 1 tab PO Daily New Prescription: Oxycodone 5mg PO TID prn #6/0 Discharge Exam - Head Exam Head Exam: ATRAUMATIC, NORMAL INSPECTION, NORMOCEPHALIC - Eye Exam Eye Exam: EOMI, Normal appearance, PERRL. absent: Scleral icterus Pupil Exam: PERRL - ENT Exam ENT Exam: Mucous Membranes Moist - Respiratory Exam Respiratory Exam: Clear to PA & Lateral, UNREMARKABLE. absent: Wheezes - Cardiovascular Exam Cardiovascular Exam: Irregular Rhythm, +S1, +S2. absent: Diastolic murmur, JVD , Systolic Murmur Additional comments: A.Fib with Rate controlled in 60s - 70s - GI/Abdominal Exam GI & Abdominal Exam: Normal Bowel Sounds, Soft. absent: Tenderness - Extremities Exam Extremities exam: normal inspection - Back Exam Back exam: NORMAL INSPECTION - Neurological Exam Neurological exam: Alert, CN II-XII Intact, Oriented x3 - Psychiatric Exam Psychiatric exam: Normal Affect, Normal Mood - Skin Skin Exam: Dry, Intact, Normal Color, Warm Discharge Plan - Discharge Medications Prescriptions: Digoxin [Lanoxin] 0.125 mg PO DAILY #30 tab Metoprolol Tartrate [Lopressor] 50 mg PO BID #30 tab oxyCODONE [oxycodone Hydrochloride] 5 mg PO TID PRN #0 tab PRN Reason: pain - Follow Up Plan Condition: GOOD Disposition: HOME/ ROUTINE Instructions: Atrial Fibrillation (DC), Chest Pain (DC), Palpitations (DC), Alcohol Intoxication (DC), Abuse of Alcohol (DC) Additional Instructions: Patient cleared for discharge as per Dr. Ndiaye 1. Follow up with your PMD within 3 days. 2. Follow up with your Senior Informatica Developer within one week 3. Updated medication list given to patient. (See Below) Patient states that he does not need any prescriptions. 4. Take Oxycodone for back pain sparingly. (Oxycodone 5mg PO TID prn prescription for 2 day supply given) 5. Abstain from further Alcohol use. 6. Return to the ER with any concerning symptoms. Medication List: 1. Metoprolol 50mg PO BID 2. Digoxin 0.125mg PO Daily 3. Levothyroxine 25mcg Daily 4. Lisinopril 2.5mg PO Daily 5. Thiamine 100mg PO daily 6. Colace 100mg PO BID 7. Ferrous Sulfate 324mg PO TID 8. Folic Acid 1mg PO Daily 9. Multivitamin 1 tab PO Daily New Prescription: Oxycodone 5mg PO TID prn #6/0 Nursing If you begin to experience chest pain, shortness of breath, symptoms return, or any changes, return to the nearest emergency room or call 911. See care notes provided for further instructions. Referrals: Kenneth Gandhi MD [Primary Care Provider] - <Senthil CRENSHAW,Tere - Last Filed: 06/07/16 16:35> Provider - Provider Date of Admission: 06/06/16 01:24 Attending physician: Tere Ndiaye MD Primary care physician: Kenneth Gandhi MD Hospital Course - Lab Results Lab Results: Most Recent Lab Values WBC 4.6 10^3/ul (4.5-11.0) 06/07/16 06:20 RBC 4.45 10^6/uL (3.5-6.1) 06/07/16 06:20 Hgb 13.1 gm/dL (14.0-18.0) L 06/07/16 06:20 Hct 38.8 % (42.0-52.0) L 06/07/16 06:20 MCV 87.2 fL (80.0-105.0) 06/07/16 06:20 MCH 29.4 pg (25.0-35.0) 06/07/16 06:20 MCHC 33.8 g/dl (31.0-37.0) 06/07/16 06:20 RDW 17.6 % (11.5-14.5) H 06/07/16 06:20 Plt Count 231 10^3/uL (120.0-450.0) 06/07/16 06:20 MPV 9.8 fl (7.0-11.0) 06/07/16 06:20 Gran % 58.6 % (50.0-68.0) 06/06/16 08:10 Lymph % (Auto) 30.0 % (22.0-35.0) 06/06/16 08:10 [place] % (Auto) 10.7 % (1.0-6.0) H 06/06/16 08:10 Eos % (Auto) 0.2 % (1.5-5.0) L 06/06/16 08:10 Baso % (Auto) 0.5 % (0.0-3.0) 06/06/16 08:10 Gran # 2.36 (1.4-6.5) 06/06/16 08:10 Lymph # 1.2 (1.2-3.4) 06/06/16 08:10 [place] # 0.4 (0.1-0.6) 06/06/16 08:10 Eos # 0.0 (0.0-0.7) 06/06/16 08:10 Baso # 0.02 K/mm3 (0.0-2.0) 06/06/16 08:10 PT 10.7 Seconds (9.9-11.8) 06/06/16 08:10 INR 0.99 (0.93-1.08) 06/06/16 08:10 APTT 28.6 Seconds (23.7-30.8) 06/06/16 08:10 Sodium 137 mmol/L (132-148) 06/07/16 06:20 Potassium 4.0 mmol/L (3.6-5.0) 06/07/16 06:20 Chloride 102 mmol/L (98-107) 06/07/16 06:20 Carbon Dioxide 23 mmol/L (21-33) 06/07/16 06:20 Anion Gap 16 (10-20) 06/07/16 06:20 BUN 8 mg/dL (7-21) 06/07/16 06:20 Creatinine 0.6 mg/dL (0.5-1.4) 06/07/16 06:20 Est GFR ( Amer) > 60 06/07/16 06:20 Est GFR (Non-Af Amer) > 60 06/07/16 06:20 Random Glucose 115 mg/dL (70-110) H 06/07/16 06:20 Calcium 9.6 mg/dL (8.4-10.5) 06/07/16 06:20 Phosphorus 4.2 mg/dL (2.5-4.5) 06/07/16 06:20 Magnesium 1.8 mg/dL (1.7-2.2) 06/07/16 06:20 Total Bilirubin 1.8 mg/dL (0.2-1.3) H 06/07/16 06:20 AST 165 U/L (15-59) H 06/07/16 06:20 ALT 47 U/L (7-56) 06/07/16 06:20 Alkaline Phosphatase 159 U/L (38-133) H 06/07/16 06:20 Lactate Dehydrogenase 345 U/L (333-699) 06/06/16 00:20 Total Creatine Kinase 24 U/L (35-230) L 06/06/16 00:20 Troponin I < 0.01 ng/mL 06/06/16 14:03 Total Protein 8.0 g/dL (5.8-8.3) 06/07/16 06:20 Albumin 4.0 g/dL (3.0-4.8) 06/07/16 06:20 Globulin 4.0 gm/dL 06/07/16 06:20 Albumin/Globulin Ratio 1.0 (1.1-1.8) L 06/07/16 06:20 Vitamin B12 606 pg/mL (239-931) 06/06/16 08:10 Folate 12.8 ng/mL 06/06/16 08:10 Free T4 1.19 ng/dL (0.78-2.19) 06/07/16 06:20 Thyroxine (T4) 9.1 ug/dL (5.5-11.0) 06/07/16 06:20 TSH 3rd Generation 8.88 mIU/mL (0.46-4.68) H 06/07/16 06:20 Alcohol, Quantitative 281 mg/dL (0-10) H 06/06/16 00:24 Attending/Attestation - Attestation I have personally seen and examined this patient.: Yes I have fully participated in the care of the patient.: Yes I have reviewed all pertinent clinical information, including history, physical exam and plan: Yes Notes (Text): Patient was seen and examined with medical billing manager .Agreed with resident assessment and plan. Patient heart rate is controlled ,his cardizem drip was discontinued.He is on Metoprolol 50 mg PO BID and digoxin for his AF.He is not on anticoagulation due to history of ongoing alcohol abuse.This was discussed in detail with patient. Patient is ambulatory and does not has any sign of alcohol withdrawl . He will be discharged home and will follow up with PCP Management plan was discussed in detail with patient Education was provided.
== END 2016-06-07 17:46 | disposition home or self-care (01) | DRG 138 ==
LOC: ED 23:05 → ERH 06-06 01:24 → 2RSO 06-06 02:42
PROVIDERS: ADMIT Internal Medicine; ATTEND Internal Medicine
DX: I48.0 Paroxysmal atrial fibrillation (principal); I42.9 Cardiomyopathy, unspecified; I10 Essential (primary) hypertension; K27.9 Peptic ulcer, site unspecified, unspecified as acute or chronic, without hemorrhage or perforation; F10.10 Alcohol abuse, uncomplicated; M54.9 Dorsalgia, unspecified; Z95.0 Presence of cardiac pacemaker; Z72.0 Tobacco use; Z80.0 Family history of malignant neoplasm of digestive organs; Z83.3 Family history of diabetes mellitus; Z80.41 Family history of malignant neoplasm of ovary

== ENCOUNTER 2016-08-23 20:40 | Inpatient (IN) | payer MEDICAID ==
[2016-08-23 20:42] VITALS: BMI 29.8
[2016-08-23 21:10] LABS: ADD MANUAL DIFF? NO
[2016-08-23 21:13] LABS: BASO # 0.02 K/mm3 (0.0-2.0); BASO % 0.4 % (0.0-3.0); EOS % 0.8 % (1.5-5.0); GRAN # 2.27 (1.4-6.5); GRAN % 46.9 % (50.0-68.0); HEMATOCRIT 37.6 % (42.0-52.0); LYMPH # 1.8 (1.2-3.4); LYMPH % 37.5 % (22.0-35.0); MEAN CELL VOLUME 84.3 fL (80.0-105.0); MEAN CORPUSCULAR HEMOGLOBIN 29.4 pg (25.0-35.0); MEAN CORPUSCULAR HGB CONC 34.8 g/dl (31.0-37.0); MEAN PLATELET VOLUME 9.9 fl (7.0-11.0); MONO # 0.7 (0.1-0.6); MONO % 14.4 % (1.0-6.0); PLATELET COUNT 172 10^3/uL (120.0-450.0); RED CELL DISTRIBUTION WIDTH 13.5 % (11.5-14.5); WHITE BLOOD COUNT 4.9 10^3/ul (4.5-11.0)
[2016-08-23 21:20] LABS: VENOUS BLOOD GAS BASE EXCESS -5.1 mmol/L (0.0-2.0)
[2016-08-23 21:26] LABS: ALB/GLOB RATIO 1.1 (1.1-1.8); ALKALINE PHOSPHATASE 153 U/L (38-133); ALT/SGPT 140 U/L (7-56); AST/SGOT 305 U/L (15-59); BILIRUBIN,TOTAL 2.1 mg/dL (0.2-1.3); BLOOD UREA NITROGEN 9 mg/dL (7-21); CALCIUM 8.9 mg/dL (8.4-10.5); CARBON DIOXIDE 21 mmol/L (21-33); CHLORIDE 85 mmol/L (98-107); GFR AFRICAN-AMERICAN > 60; GLUCOSE,RANDOM 107 mg/dL (70-110); PARTIAL THROMBOPLASTIN TIME 33.4 Seconds (23.7-30.8); POTASSIUM 5.2 mmol/L (3.6-5.0); TOTAL PROTEIN 8.5 g/dL (5.8-8.3)
[2016-08-23 21:41] LABS: TROPONIN I < 0.01 ng/mL
--- NOTE | 2016-08-23 21:41 | ED PDOC ---
Arrival/HPI - General Chief Complaint: Chest Pain Time Seen by Provider: 08/23/16 20:54 Historian: Patient - History of Present Illness Narrative History of Present Illness (Text): 08/23/16 21:38 Elvis Ybarra is a 50 year old male, with a history of paroxysmal AFib, tachy- viki syndrome s/p pacer, hypertension, cardiomyopathy, alcohol abuse, peptic ulcer disease and GI bleed presents to the emergency department complaining of palpitations since yesterday. He also notes of chest discomfort which he describes as a pressure to the chest. Denies any fever, chills, headache, dizziness, shortness of breath, nausea, vomiting, diarrhea, urinary symptoms, or any other complaints at this time. Time/Duration: Other (yesterday ) Symptom Onset: Gradual Symptom Course: Unchanged Severity Level: Mild Activities at Onset: Light Past Medical History - Provider Review Nursing Documentation Reviewed: Yes - Past History Past History: No Previous (hx of afib, svt) - Infectious Disease Hx of Infectious Diseases: None - Tetanus Immunization Tetanus Immunization: Unknown - Cardiac Hx Cardiac Disorders: Yes Hx Cardiac Arrhythmia: Yes (svt palpitations a fib) Hx Pacemaker: Yes Hx Peripheral Edema: Yes Other/Comment: truncus arteriosis congenital heart disease, sick sinus syndrome , malfunction of heart rhythm, cardiomyopathy - Pulmonary Hx Chronic Obstructive Pulmonary Disease (COPD): No - Neurological HX Cerebrovascular Accident: No Hx Dizziness: Yes Hx Seizures: (pt denies) - HEENT Hx HEENT Disorder: Yes (eyeglasses) Hx Blind: No Hx Cataracts: No Hx Deafness: No Hx Difficulty Chewing: No Hx Epistaxis: No Hx Glaucoma: No Hx Macular Degeneration: No Other/Comment: 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 related noise exposure - Renal Hx Renal Failure: No - Endocrine/Metabolic Hx Diabetes Mellitus Type 1: No Hx Diabetes Mellitus Type 2: No Hx Hypothyroidism: No - Hematological/Oncological Hx AIDS: No Hx Anemia: No Hx Cancer: No Hx Chemotherapy: No Hx Cirrhosis: No Hx Hemophilia: No Hx Hepatitis A: No Hx Hepatitis B: No Hx Hepatitis C: No Hx Metastasis: No Hx Shingles: No Hx Sickle Cell Disease: No Hx Unexplained Bleeding: No - Integumentary Hx Dermatological Disorder: No Hx Basal Cell Carcinoma: No Hx Eczema: No Hx Melanoma: No Hx Psoriasis: No Hx Squamous Cell Carcinoma: No Other/Comment: tatoos, bruise to left abd and rib area - Musculoskeletal/Rheumatological Hx Falls: Yes (fell in bathroom last night at home) - Gastrointestinal Hx Gastrointestinal Disorders: Yes Hx Colostomy: No Hx Crohn's Disease: No Hx Diverticulitis: No Hx Gall Bladder Disease: No Hx Gastroesophageal Reflux: Yes Hx Ileostomy: No Hx Liver Failure: No Hx Pancreatitis: No HX Swallowing Problems: No Other/Comment: perforated ulcer X2, had sx twice, rectal bleeding due to perforations - Genitourinary/Gynecological Hx Hematuria: No Hx Incontinence: No Hx Prostate Problems: No Hx Sexually Transmitted Diseases: No Hx Urinary Tract Infection: No - Psychiatric Hx Psychophysiologic Disorder: Yes (ETOH abuse drinks 1/2 to 1 case beer per day ) Hx Anxiety: No Hx Bipolar Disorder: No Hx Depression: No Hx Hallucinations: No Hx Panic Disorder: No Hx Post Traumatic Stress Disorder: No Hx Psychosis: No Hx Schizophrenia: No Hx Sexual Abuse: No Hx Substance Use: (pt denies) Other/Comment: ETOH, drinks 1 case of beer a day, smokes a cigar "twice a year" , denies substance use - Surgical History Hx Amputation: No Hx Appendectomy: No Hx Cardiac Catheterization: No Hx Cholecystectomy: No Hx Coronary Stent: No Hx Gastric Bypass Surgery: Yes (around 10 yrs ago used to weigh 360 lbs) Hx Hysterectomy: No Hx Joint Replacement: No Hx Kidney Transplant: No Hx Liver Transplant: No Hx Mastectomy: No Hx Musculoskeletal Surgery: No Hx Open Heart Surgery: No Hx Orthopedic Surgery: No Hx Splenectomy: No Hx Valve Replacement: No - Anesthesia Hx Anesthesia: Yes Hx Anesthesia Reactions: No Hx Malignant Hyperthermia: No - Suicidal Assessment Feels Threatened In Home Enviroment: No Family/Social History - Physician Review Nursing Documentation Reviewed: Yes Family/Social History: No Known Family HX Smoking Status: Never Smoked Hx Alcohol Use: Yes (1 case beer daily) Frequency of alcohol use: Daily Amount per day: 6 Hx Substance Use: (pt denies) Hx Substance Use Treatment: No Allergies/Home Meds Allergies/Adverse Reactions: Allergies No Known Allergies Allergy (Verified 04/19/16 23:35) Home Medications: Home Meds Medication Instructions Recorded Confirmed Ferrous Sulfate [Feosol] 324 mg PO TID 04/19/16 06/07/16 Multivitamin [Multivitamins] 1 cap PO DAILY 04/19/16 06/07/16 Review of Systems - Physician Review All systems were reviewed & negative as marked: Yes - Review of Systems Constitutional: Normal. absent: Fatigue, Fevers Respiratory: absent: SOB, Cough, Sputum Cardiovascular: Chest Pain, Palpitations Gastrointestinal: Normal. absent: Abdominal Pain, Diarrhea, Nausea, Vomiting Genitourinary Male: Normal Neurological: Normal. absent: Headache, Dizziness Psychiatric: Normal Physical Exam Vital Signs Reviewed: Yes Vital Signs Temp Pulse Pulse Resp BP Pulse Ox 08/24/16 01:28 97.7 F 71 71 20 132/86 08/24/16 01:21 62 16 113/68 98 08/23/16 20:50 69 08/23/16 20:46 98.1 F 86 18 126/82 100 Temperature: Afebrile Blood Pressure: Normal Pulse: Regular Respiratory Rate: Normal Appearance: Positive for: Well-Appearing, Non-Toxic, Comfortable Pain Distress: None Mental Status: Positive for: Alert and Oriented X 3 - Systems Exam Head: Present: Atraumatic, Normocephalic Pupils: Present: PERRL Extroacular Muscles: Present: EOMI Mouth: Present: Moist Mucous Membranes Neck: Present: Normal Range of Motion Respiratory/Chest: Present: Clear to Auscultation, Good Air Exchange. No: Respiratory Distress, Accessory Muscle Use Cardiovascular: Present: Normal S1, S2, Irregular Rhythm (irregularly irregular rhythm ). No: Murmurs Abdomen: Present: Normal Bowel Sounds. No: Tenderness, Distention, Peritoneal Signs Upper Extremity: Present: Normal Inspection. No: Cyanosis, Edema Lower Extremity: Present: Normal Inspection. No: Edema Neurological: Present: GCS=15, CN II-XII Intact, Speech Normal Skin: Present: Warm, Dry, Normal Color. No: Rashes Psychiatric: Present: Alert, Oriented x 3, Normal Insight, Normal Concentration Medical Decision Making ED Course and Treatment: 08/23/16 21:43 Impression: A 50 year old male who presents to the emergency department complaining of chest pressure and palpitations since yesterday. Plan: -- EKG -- Labs, cardiac enzymes -- Alcohol level -- Chest X-ray -- Reassess and disposition Progress Notes: 08/23/16 22:49 Chest X-ray interpreted by me: Shows cardiomegaly. No CHF. EKG reviewed by me: paced at 78 bpm. 08/23/16 22:31 Case discussed with who is aware and agrees with the plan to admit patient to telemetry for hyponatremia. Accepts patient under hospitalist service. - Lab Interpretations Lab Results: 08/23/16 20:50 08/23/16 20:50 Lab Results 08/23/16 21:05: pO2 45, VBG pH 7.30 L, VBG pCO2 43.0, VBG HCO3 21.2, VBG Total CO2 22.5, VBG O2 Sat (Calc) 78.1 H, VBG Base Excess -5.1 L, VBG Potassium 6.2 H* , Glucose 103, Lactate 1.5, FiO2 21.0, Sodium 115.0 L*, Chloride 85.0 L, Venous Blood Potassium 6.2 H* 08/23/16 20:50: Alcohol, Quantitative 227 H 08/23/16 20:50: Sodium 116 L*, Potassium 5.2 H, Chloride 85 L, Carbon Dioxide 21 , Anion Gap 15, BUN 9, Creatinine 0.6, Est GFR ( Amer) > 60, Est GFR (Non -Af Amer) > 60, Random Glucose 107, Calcium 8.9, Total Bilirubin 2.1 H, AST 305 H, ALT 140 H, Alkaline Phosphatase 153 H, Lactate Dehydrogenase 498, Total Creatine Kinase 43, Troponin I < 0.01, NT-Pro-B Natriuret Pep 1620 H, Total Protein 8.5 H, Albumin 4.5, Globulin 4.0, Albumin/Globulin Ratio 1.1 08/23/16 20:50: PT 10.8, INR 1.00, APTT 33.4 H 08/23/16 20:50: WBC 4.9, RBC 4.46, Hgb 13.1 L, Hct 37.6 L, MCV 84.3, MCH 29.4, MCHC 34.8, RDW 13.5, Plt Count 172, MPV 9.9, Gran % 46.9 L, Lymph % (Auto) 37.5 H, Garland % (Auto) 14.4 H, Eos % (Auto) 0.8 L, Baso % (Auto) 0.4, Gran # 2.27, Lymph # 1.8, Garland # 0.7 H, Eos # 0.0, Baso # 0.02 I have reviewed the lab results: Yes - RAD Interpretation Radiology Orders: 08/23/16 20:58 CHEST PORTABLE [RAD] Stat Bunch Breaker: ED Physician - EKG Interpretation Interpreted by ED Physician: Yes Type: 12 lead EKG - Medication Orders Current Medication Orders: Digoxin (Lanoxin) 0.125 mg PO 1400 ALLIE Last Admin: 08/24/16 14:30 Dose: 0.125 mg Famotidine (Pepcid) 40 mg PO HS ALLIE Folic Acid (Folic Acid) 1 mg PO DAILY ALLIE Dextrose (Dextrose 5% In Water 1000 Ml) 1,000 mls @ 250 mls/hr IV .Q4H ALLIE Last Admin: 08/24/16 18:44 Dose: 250 mls/hr Levothyroxine Sodium (Synthroid) 25 mcg PO ACB ALLIE Last Admin: 08/24/16 08:41 Dose: 25 mcg Lisinopril (Zestril) 2.5 mg PO DAILY ALLIE Last Admin: 08/24/16 10:36 Dose: 2.5 mg Lorazepam (Ativan) 2 mg PO Q2 PRN; Protocol PRN Reason: Symptoms of alcohol withdrawl Last Admin: 08/24/16 04:09 Dose: 2 mg Re-Assess: Reassess Psych Meds Document 08/24/16 05:09 DS (Rec: 08/24/16 05:34 DS [id number]) Reassess Psych Med Effective Lorazepam (Ativan) 2 mg PO Q6H ALLIE PRN Reason: Protocol Last Admin: 08/24/16 18:19 Dose: 2 mg Comments: Pt sleeping in afternoon Metoprolol Tartrate (Lopressor) 50 mg PO BID [facility] Last Admin: 08/24/16 18:18 Dose: 50 mg Ondansetron HCl (Zofran Inj) 8 mg IVP Q6H PRN PRN Reason: Nausea/Vomiting Last Admin: 08/24/16 06:24 Dose: 8 mg Oxycodone HCl (Oxycodone Immediate Release Tab) 5 mg PO Q8H PRN PRN Reason: Pain, severe (8-10) Last Admin: 08/24/16 18:20 Dose: 5 mg Thiamine HCl (Vitamin B1 Tab) 100 mg PO DAILY ALLIE Trazodone HCl (Desyrel) 50 mg PO HS PRN PRN Reason: Insomnia Discontinued Medications Aspirin (Aspirin Chewable) 81 mg PO STAT STA Stop: 08/23/16 22:57 Last Admin: 08/23/16 23:29 Dose: 81 mg Sodium Chloride (Hypertonic Saline 3%) 100 mls @ 100 mls/hr IV .Q1H ALLIE Last Admin: 08/23/16 22:09 Dose: Multivitamins/Vitamin C 10 ml/Thiamine HCl 100 mg/ Folic Acid 1 mg/ Sodium Chloride 1,011.2 mls @ 1,000 mls/hr IV .Q1H1M ONE Stop: 08/23/16 23:12 Last Admin: 08/23/16 22:48 Dose: 1,000 mls/hr Sodium Chloride (Sodium Chloride 0.9%) 1,000 mls @ 165 mls/hr IV .Q6H4M ALLIE Sodium Chloride (Sodium Chloride 0.9%) 1,000 mls @ 125 mls/hr IV .Q8H ALLIE Last Admin: 08/23/16 23:29 Dose: 125 mls/hr Dextrose (Dextrose 5% In Water 1000 Ml) 1,000 mls @ 100 mls/hr IV .Q10H [facility] Last Admin: 08/24/16 03:37 Dose: 100 mls/hr Magnesium Sulfate 2 gm/ Sodium (Chloride) 104 mls @ 102 mls/hr IVPB ONCE ONE Stop: 08/24/16 10:09 Last Admin: 08/24/16 11:33 Dose: 102 mls/hr Desmopressin Acetate 2 mcg/ (Sodium Chloride) 50.5 mls @ 100 mls/hr IV ONCE ONE Stop: 08/24/16 11:01 Last Admin: 08/24/16 12:56 Dose: 100 mls/hr Morphine Sulfate (Morphine) 2 mg IVP STAT STA Stop: 08/23/16 22:15 Last Admin: 08/23/16 22:22 Dose: 2 mg Pantoprazole Sodium (Protonix Ec Tab) 40 mg PO 0630 ALLIE Last Admin: 08/24/16 05:33 Dose: 40 mg - Scribe Statement The provider has reviewed the documentation as recorded by the Umer Burch Provider Attestation: Provider Scribe Attestation: All medical record entries made by the Tristonibafia were at my direction and personally dictated by me. I have reviewed the chart and agree that the record accurately reflects my personal performance of the history, physical exam, medical decision making, and the department course for this patient. I have also personally directed, reviewed, and agree with the discharge instructions and disposition. Disposition/Present on Arrival - Present on Arrival Any Indicators Present on Arrival: No History of DVT/PE: No History of Uncontrolled Diabetes: No Urinary Catheter: No History of Decub. Ulcer: No History Surgical Site Infection Following: None - Disposition Have Diagnosis and Disposition been Completed?: Yes Diagnosis: Hyponatremia, Atrial fibrillation or flutter, Atrial fibrillation, Alcohol abuse Disposition: HOSPITALIZED Disposition Time: 22:15 Condition: FAIR
[2016-08-23 21:42] LABS: SODIUM 116 mmol/L (132-148)
[2016-08-23] MEDS ORDERED: Sodium Chloride 3% 100 ML IV SCH (21:45)
[2016-08-23] MEDS ORDERED: Sodium Chloride 3% 100 ML IV ONE (22:10)
[2016-08-23] MEDS ORDERED: Multivitamin (MVI) 10 ML, Thiamine 100 MG, Folic Acid 1 MG in Sodium Chloride 0.9% 1,00... IV ONE (22:12)
[2016-08-23] MEDS ORDERED: Morphine 2 mg/ml ISec IVP STA (22:14)
[2016-08-23] MEDS ORDERED: Sodium Chloride 0.9% 1,000 ML IV SCH ×2 (22:15→22:57)
--- NOTE | 2016-08-23 23:09 | CP.PCM.HP ---
<NicoleMason - Last Filed: 08/23/16 23:40> History of Present Illness - History of Present Illness History of Present Illness: Pt is a 50 year old male, with a history of paroxysmal AFib, tachy-viki syndrome s/p pacer, hypertension, cardiomyopathy, alcohol abuse, peptic ulcer disease who is coming to the hospital for a 2d history of chest discomfort and palpitations. He has had symptoms like this in the past before; states that he feels like his heart rate broke into sinus sometime last night but continued to have the chest discomfort so that's why he decided to come in. States he is compliant with all of his medications. However, Elvis drinks 1-2 cases of beer every day for the past 4 years. He has no wishes to stop drinking, and has admitted to having multiple EtOH withdrawal seizures in the past, as well as alcoholic hallucinosis. Patient states he is depressed, but has no wishes to hurt himself or others "as his life is too valuable", denies AV hallucinations. States he supports himself with money left to him from his father 2 years ago. PMhx:paroxysmal AFib, tachy-viki syndrome s/p pacer, hypertension, cardiomyopathy, alcohol abuse, peptic ulcer Meds: Digoxin, Colace, Feosol, Folic Acid, Levothyoxine, Zestril, Metoprolol, Multivitamin, Oxy 5mg TID, Thiamine, Trazadone (not taking). Fam Hx: father from [place]; no other contributing Surgery: Gastric bypass; multiple complications; peptic ulcer repair Social: lives alone, chronic EtOH abuser 1-2 packs per day; denies use of other illicit drugs; states he is depressed and has been admitted to psych before but is not on psychotropic medications In the ED he was found to have a Na of 116, K of 5.2. Troponins were negative. Chest X-Ray showed cardiomyopathy with no infiltrates. The patient will be admitted to telemetry. Present on Admission - Present on Admission Any Indicators Present on Admission: No History of DVT/PE: No History of Uncontrolled Diabetes: No Urinary Catheter: No Decubitus Ulcer Present: No Review of Systems - Review of Systems All systems: reviewed and no additional remarkable complaints except Past Patient History - Infectious Disease Hx of Infectious Diseases: None - Tetanus Immunizations Tetanus Immunization: Unknown - Past Medical History & Family History Past Medical History?: Yes - Past Social History Smoking Status: Never Smoked - CARDIAC Hx Cardiac Disorders: Yes Hx Cardia Arrhythmia: Yes (svt palpitations a fib) Hx Pacemaker: Yes Hx Peripheral Edema: Yes Other/Comment: truncus arteriosis congenital heart disease, sick sinus syndrome , malfunction of heart rhythm, cardiomyopathy - PULMONARY Hx Chronic Obstructive Pulmonary Disease (COPD): No - NEUROLOGICAL HX Cerebrovascular Accident: No Hx Dizziness: Yes Hx Seizures: (pt denies) - HEENT Hx HEENT Problems: Yes (eyeglasses) Hx Blind: No Hx Cataracts: No Hx Deafness: No Hx Difficulty Chewing: No Hx Epistaxis: No Hx Glaucoma: No Hx Macular Degeneration: No Other/Comment: 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 related noise exposure - RENAL Hx Renal Failure: No - ENDOCRINE/METABOLIC Hx Diabetes Mellitus Type 1: No Hx Diabetes Mellitus Type 2: No Hx Hypothyroidism: No - HEMATOLOGICAL/ONCOLOGICAL Hx AIDS: No Hx Anemia: No Hx Cancer: No Hx Chemotherapy: No Hx Cirrhosis: No Hx Hemophilia: No Hx Hepatitis A: No Hx Hepatitis B: No Hx Hepatitis C: No Hx Metastesis: No Hx Shingles: No Hx Sickle Cell Disease: No Hx Unexplained Bleeding: No - INTEGUMENTARY Hx Dermatological Problems: No Hx Basil Cell: No Hx Eczema: No Hx Melanoma: No Hx Psoriasis: No Hx Squamous Cell: No Other/Comment: tatoos, bruise to left abd and rib area - MUSCULOSKELETAL/RHEUMATOLOGICAL Hx Falls: Yes (fell in bathroom last night at home) - GASTROINTESTINAL Hx Gastrointestinal Disorders: Yes Hx Colostomy: No Hx Crohn's Disease: No Hx Diverticulitis: No Hx Gall Bladder Disease: No Hx Gastroesophageal Reflux: Yes Hx Ileostomy: No Hx Liver Failure: No Hx Pancreatitis: No HX Swallowing Problems: No Other/Comment: perforated ulcer X2, had sx twice, rectal bleeding due to perforations - GENITOURINARY/GYNECOLOGICAL Hx Hematuria: No Hx Incontinence: No Hx Prostate Problems: No Hx Sexually Transmitted Disorders: No Hx Urinary Tract Infection: No - PSYCHIATRIC Hx Psychophysiologic Disorder: Yes (ETOH abuse drinks 1/2 to 1 case beer per day ) Hx Anxiety: No Hx Bipolar Disorder: No Hx Depression: No Hx Hallucinations: No Hx Panic Symptoms: No Hx Post Traumatic Stress Disorder: No Hx Psychosis: No Hx Schizophrenia: No Hx Sexual Abuse: No Hx Substance Use: (pt denies) Other/Comment: ETOH, drinks 1 case of beer a day, smokes a cigar "twice a year" , denies substance use - SURGICAL HISTORY Hx Amputation: No Hx Appendectomy: No Hx Cardiac Catheterization: No Hx Cholecystectomy: No Hx Coronary Stent: No Hx Gastric Bypass Surgery: Yes (around 10 yrs ago used to weigh 360 lbs) Hx Hysterectomy: No Hx Joint Replacement: No Hx Kidney Transplant: No Hx Liver Transplant: No Hx Mastectomy: No Hx Musculoskeletal Surgery: No Hx Open Heart Surgery: No Hx Orthopedic Surgery: No Hx Splenectomy: No Hx Valve Replacement: No - ANESTHESIA Hx Anesthesia: Yes Hx Anesthesia Reactions: No Hx Malignant Hyperthermia: No Meds Allergies/Adverse Reactions: Allergies Allergy/AdvReac Type Severity Reaction Status Date / Time No Known Allergies Allergy Verified 04/19/16 23:35 Physical Exam - Constitutional Appears: Non-toxic - Head Exam Head Exam: ATRAUMATIC - Eye Exam Eye Exam: EOMI, Normal appearance. absent: Scleral icterus - ENT Exam ENT Exam: Mucous Membranes Moist - Neck Exam Neck exam: Negative for: Lymphadenopathy - Respiratory Exam Respiratory Exam: Clear to Auscultation Bilateral, NORMAL BREATHING PATTERN. absent: Rales, Rhonchi, Wheezes - Cardiovascular Exam Cardiovascular Exam: REGULAR RHYTHM, +S1, +S2, Systolic Murmur (+4/6 holosystolic murmur ). absent: Tachycardia, Diastolic murmur - GI/Abdominal Exam GI & Abdominal Exam: Normal Bowel Sounds, Soft. absent: Tenderness Additional comments: scar present in epigastrium 4-6 cm vertical; well healed - Extremities Exam Extremities exam: Positive for: full ROM. Negative for: calf tenderness, pedal edema - Back Exam Back exam: NORMAL INSPECTION. absent: CVA tenderness (L), CVA tenderness (R) - Neurological Exam Neurological exam: Alert, Oriented x3 - Psychiatric Exam Psychiatric exam: Depressed - Skin Skin Exam: Warm Results - Vital Signs Recent Vital Signs: Last Vital Signs Temp 98.1 F 08/23/16 20:46 Pulse 69 08/23/16 20:50 Resp 18 08/23/16 20:46 BP 126/82 08/23/16 20:46 Pulse Ox 100 08/23/16 20:46 - Labs Result Diagrams: 08/23/16 20:50 08/23/16 20:50 Assessment & Plan - Assessment and Plan (Free Text) Assessment: 50yo M admitted for Hyponatremia, Chest Pain, and EtOH Withdrawal CP -Trop initially negative; will trend 2 more Q6H -Tele Hyponatremia -Currently 116; will want to correct to 125 in 24 hours -Received bolus in ED of NS; will continue NS at 125/hr -BMP Q4H EtOH Withdrawal -Banana Bag w/ daily vitamins -Ciwa Protocol -Ativan taper CHF; chronic sytolic not in acute exacerbation w/ cardiomyopathy 2/2 to EtOH abuse -BNP 1800; has been [place] [id number] in past -not SOB, legs not swollen -monitor clinically - c/w home meds Depression/EtOH Abuse -consider psych consult once medical conditions have resolved -patient is requesting inpatient psych voluntary -Consider naltrexone; patient is willing to try here inpatient; will help decrease cravings Hypothyroidism -c/w home meds -check TSH/T4; f/u results Proph Protonix and SCD Heart Healthy Diet Case discussed with Dr. Juan Rivera PGY1 Night Float Decision To Admit - Pt Status Changed To: Hospital Disposition Of: Inpatient Admission - Admit Certification Admit to Inpatient:: After my assessment, the patient will require hospitalization for at least two midnights. This is because of the severity of symptoms shown, intensity of services needed, and/or the medical risk in this patient being treated as an outpatient. - . Bed Request Type: Telemetry Admitting Physician: iMller Silver <Miller Silver - Last Filed: 08/24/16 03:35> Results - Vital Signs Recent Vital Signs: Last Vital Signs Temp 97.7 F 08/24/16 01:28 Pulse 65 08/24/16 02:00 Resp 20 08/24/16 01:28 BP 132/86 08/24/16 01:28 Pulse Ox 98 08/24/16 01:21 - Labs Result Diagrams: 08/23/16 20:50 08/24/16 02:00 Labs: Laboratory Results - last 24 hr 08/24/16 02:00 Sodium 128 L Potassium 4.4 Chloride 97 L Carbon Dioxide 18 L Anion Gap 17 BUN 6 L Creatinine 0.5 Est GFR ( Amer) > 60 Est GFR (Non-Af Amer) > 60 Random Glucose 94 Calcium 9.1 Attending/Attestation - Attestation I have personally seen and examined this patient.: Yes I have fully participated in the care of the patient.: Yes I have reviewed all pertinent clinical information: Yes Notes (Text): 08/24/16 03:32 I agree with the above mentioned note by Dr. Gonzalez with the addition/exception of the followin50 y/o male alcoholic with multiple cardiac comorbidities secondary to his excessive alcohol use presents to the ED with the complaint of palpitations believing his Afib was out of control. Patient was rate controlled and not in any distress at the time of my exam, however was hyponatremic and complained of chest discomfort. ED had planned to give the patient 3% normal saline, however I held that order as he did not have any neurological signs or symptoms of hyponatremia and placed him on 0.9% normal saline instead. His sodium has already rapidly corrected to 128 from 116 in slightly over 4 hours, so he will not be switched to D5W to avoid any further correction.
[2016-08-23] MEDS: oxyCODONE 5 mg Immediate Release Tab PO PRN (23:33)
[2016-08-24 02:47] LABS: BLOOD UREA NITROGEN 6 mg/dL (7-21); CALCIUM 9.1 mg/dL (8.4-10.5); CARBON DIOXIDE 18 mmol/L (21-33); CHLORIDE 97 mmol/L (98-107); GFR AFRICAN-AMERICAN > 60; GLUCOSE,RANDOM 94 mg/dL (70-110); POTASSIUM 4.4 mmol/L (3.6-5.0); SODIUM 128 mmol/L (132-148)
[2016-08-24] MEDS ORDERED: Pantoprazole 40 mg EC Tab PO SCH (06:30)
--- NOTE | 2016-08-24 07:57 | RAD ---
HISTORY: sob COMPARISON: 06/06/2016 FINDINGS: LUNGS: No active pulmonary disease. PLEURA: No significant pleural effusion identified, no pneumothorax apparent. CARDIOVASCULAR: Cardiomegaly -slightly more conspicuous possibly due to technical factors. The left sided battery pack with single lead pacemaker device is unchanged in appearance and course single frontal view. OSSEOUS STRUCTURES: No significant abnormalities. VISUALIZED UPPER ABDOMEN: Surgical changes in the epigastric region -likely relating to the stomach and are at distal esophagus/GE junction -correlate clinically OTHER FINDINGS: None. IMPRESSION: No acute cardiopulmonary pathology seen cardiomegaly as before. Pacemaker device as before Epigastric postsurgical changes -correlate clinically
[2016-08-24 08:04] LABS: BASO # 0.01 K/mm3 (0.0-2.0); BASO % 0.3 % (0.0-3.0); EOS % 0.6 % (1.5-5.0); GRAN # 1.61 (1.4-6.5); GRAN % 51.1 % (50.0-68.0); HEMATOCRIT 34.9 % (42.0-52.0); LYMPH # 0.9 (1.2-3.4); LYMPH % 28.3 % (22.0-35.0); MEAN CELL VOLUME 84.1 fL (80.0-105.0); MEAN CORPUSCULAR HEMOGLOBIN 28.7 pg (25.0-35.0); MEAN CORPUSCULAR HGB CONC 34.1 g/dl (31.0-37.0); MEAN PLATELET VOLUME 9.4 fl (7.0-11.0); MONO # 0.6 (0.1-0.6); MONO % 19.7 % (1.0-6.0); PLATELET COUNT 108 10^3/uL (120.0-450.0); RED CELL DISTRIBUTION WIDTH 13.4 % (11.5-14.5); WHITE BLOOD COUNT 3.2 10^3/ul (4.5-11.0)
[2016-08-24 08:05] LABS: ADD MANUAL DIFF? NO
[2016-08-24 08:41] LABS: TROPONIN I < 0.01 ng/mL
[2016-08-24] MEDS: Levothyroxine 25 MCG TAB PO SCH (08:41)
[2016-08-24] MEDS: oxyCODONE 5 mg Immediate Release Tab PO PRN ×2 (08:46→18:20)
[2016-08-24 08:48] LABS: ALKALINE PHOSPHATASE 141 U/L (38-133); ALT/SGPT 128 U/L (7-56); AST/SGOT 285 U/L (15-59); BILIRUBIN,TOTAL 2.5 mg/dL (0.2-1.3); BLOOD UREA NITROGEN 9 mg/dL (7-21); CALCIUM 8.9 mg/dL (8.4-10.5); CARBON DIOXIDE 21 mmol/L (21-33); CHLORIDE 99 mmol/L (98-107); GFR AFRICAN-AMERICAN > 60; GLUCOSE,RANDOM 96 mg/dL (70-110); MAGNESIUM 1.6 mg/dL (1.7-2.2); POTASSIUM 4.4 mmol/L (3.6-5.0); SODIUM 128 mmol/L (132-148); TOTAL PROTEIN 7.4 g/dL (5.8-8.3)
[2016-08-24] MEDS ORDERED: Magnesium Sulfate 2 GM in Sodium Chloride 0.9% 100 ML IVPB ONE (09:08)
[2016-08-24 09:48] LABS: BLOOD UREA NITROGEN 10 mg/dL (7-21); CARBON DIOXIDE 21 mmol/L (21-33); CHLORIDE 98 mmol/L (95-110); GFR AFRICAN-AMERICAN > 60; GLUCOSE,RANDOM 108 mg/dL (70-110); POTASSIUM 4.6 mmol/L (3.6-5.0); SODIUM 126 mmol/L (132-148)
--- NOTE | 2016-08-24 12:25 | CP.PCM.PN ---
<Karson Renner - Last Filed: 08/24/16 14:39> Subjective - Date & Time of Evaluation Date of Evaluation: 08/24/16 Time of Evaluation: 07:20 - Subjective Subjective: Internal Medicine Progress Note for Dr. Garcia. Patient seen and examined at bedside. Today is hospital day 2. Overnight, needed 3 doses of PO Ativan for his withdrawal sx (2x PRN order, 1x schedule, 6mg total); no acute events. Sleeping comfortably in bed at time of exam but easily aroused. Denies chest pain, shortness of breath, sense of palpitations, sense of room spinning, nausea/emesis. Admits to some residual diffuse abdominal pain, no other complaints. Objective - Vital Signs/Intake and Output Vital Signs (last 24 hours): Temp Pulse Resp BP Pulse Ox 98 F 60 18 137/90 98 08/24/16 11:54 08/24/16 11:54 08/24/16 11:54 08/24/16 11:54 08/24/16 05:39 Intake and Output: 08/24/16 08/24/16 06:59 18:59 Intake Total 720 Output Total 750 Balance -30 - Medications Medications: Current Medications Digoxin (Lanoxin) 0.125 mg PO 1400 [facility] Famotidine (Pepcid) 40 mg PO HS [facility] Dextrose (Dextrose 5% In Water 1000 Ml) 1,000 mls @ 250 mls/hr IV .Q4H [facility] Levothyroxine Sodium (Synthroid) 25 mcg PO ACB [facility] Last Admin: 08/24/16 08:41 Dose: 25 mcg Lisinopril (Zestril) 2.5 mg PO DAILY [facility] Last Admin: 08/24/16 10:36 Dose: 2.5 mg Lorazepam (Ativan) 2 mg PO Q2 PRN; Protocol PRN Reason: Symptoms of alcohol withdrawl Last Admin: 08/24/16 04:09 Dose: 2 mg Lorazepam (Ativan) 2 mg PO Q6H [facility] PRN Reason: Protocol Last Admin: 08/24/16 08:41 Dose: 2 mg Metoprolol Tartrate (Lopressor) 50 mg PO BID [facility] Last Admin: 08/24/16 10:35 Dose: 50 mg Ondansetron HCl (Zofran Inj) 8 mg IVP Q6H PRN PRN Reason: Nausea/Vomiting Last Admin: 08/24/16 06:24 Dose: 8 mg Oxycodone HCl (Oxycodone Immediate Release Tab) 5 mg PO Q8H PRN PRN Reason: Pain, severe (8-10) Last Admin: 08/24/16 08:46 Dose: 5 mg Trazodone HCl (Desyrel) 50 mg PO HS PRN PRN Reason: Insomnia - Labs Labs: 08/24/16 06:00 08/24/16 09:30 PT 10.8 Seconds (9.9-11.8) 08/23/16 20:50 INR 1.00 (0.93-1.08) 08/23/16 20:50 APTT 33.4 Seconds (23.7-30.8) H 08/23/16 20:50 - Constitutional Appears: Non-toxic, No Acute Distress - Head Exam Head Exam: ATRAUMATIC, NORMAL INSPECTION, NORMOCEPHALIC - Eye Exam Eye Exam: EOMI, Normal appearance. absent: Conjunctival injection, Scleral icterus - ENT Exam ENT Exam: Mucous Membranes Moist. absent: Mucous Membranes Dry - Neck Exam Neck Exam: Full ROM - Respiratory Exam Respiratory Exam: Clear to Ausculation Bilateral, NORMAL BREATHING PATTERN. absent: Rales, Rhonchi, Wheezes - Cardiovascular Exam Cardiovascular Exam: REGULAR RHYTHM, RRR, +S1, +S2. absent: Bradycardia, Tachycardia, Irregular Rhythm, JVD, +S4 - GI/Abdominal Exam GI & Abdominal Exam: Soft, Tenderness (patient reports tenderness to palpation, but exhibits no ), Normal Bowel Sounds. absent: Distended, Firm, Rigid, Diminished Bowel Sounds, Hyperactive Bowel Sounds, Hypoactive Bowel Sounds - Extremities Exam Extremities Exam: Normal Capillary Refill, Normal Inspection. absent: Calf Tenderness, Joint Swelling, Pedal Edema, Tenderness - Neurological Exam Neurological Exam: Alert, Awake, Oriented x3 - Psychiatric Exam Psychiatric exam: Normal Affect, Normal Mood - Skin Skin Exam: Dry, Intact, Normal Color, Warm Assessment and Plan - Assessment and Plan (Free Text) Assessment: This is a 50 yo M with PMH of paroxysmal AFib, tachy-viki syndrome s/p pacer, hypertension, cardiomyopathy, alcohol abuse, and peptic ulcer disease who [place] [facility] [place] of palpitations and sub-sternal chest pain/ pressure, and was found to be hyponatremic. Plan: 1) Chest pain: resolved -ACS vs GERD vs 2/2 arrhythmia vs 2/2 anxiety related to sensation of arrhythmia -Trops x2 negative, pending 1 more -Tele monitoring negative for AFib with RVR, HR since admission 60's-80's -Continue home ASA, Metoprolol 2) Hyponatremia -116 on admission, too rapidly corrected to 128, stable at 128 on D5W at 250cc/ hr -No acute changes in mentation, continue to monitor, avoid too aggressive correction due to risk for central pontine myelinosis -BMP Q4H -Does not appear hyper- or hypo-volemic, likely euvolemic hyponatremia, suspect beer potomania given persistent alcohol abuse and EtOH lvl 227 on admit -Hx hypothyroidism on synthroid, TSH elevated so likely non-compliant with medication, likely contributory to hyponatremia -Nephro consulted, appreciate their recs 3) EtOH Withdrawal -Banana bag on admit, now on hold due strict fluid management for hyponatremia that corrected too rapidly; will supplement Thiamine/Folic Acid separately -[facility] Protocol -Ativan [facility] and PRN q2; currently received 3 doses for total of 6mg (x1 Haleigh and x2 PRN), will attempt to taper as withdrawal improves -Avoid Librium given elevated LFTs 4) Hx CHF -chronic systolic with cardiomyopathy 2/2 to EtOH abuse -Doesn't appear to be acutely exacerbated right now based on BNP, physical exam findings (no crackles, no LE edema), and lack of SOB -monitor clinically -continue home CHF medications 5) Depression/EtOH Abuse -patient is requesting inpatient psych voluntary, psych consulted 6) Hypothyroidism -continue home synthroid -TSH 9.2, suspect non-compliant with home med, will recheck after on home synthroid for a few days -Free T4 1.14 -Total T4 and Free T3 ordered, f/u Dispo: Tele inpt, pending Psych and Nephro input, [facility] protocol FEN: Heart-Healthy, D5W 250cc/hr Access: Peripheral IV Consults: Nephro, Psych Ppx: Pepcid for GI, SCDs for DVT Patient seen, reviewed, and discussed with Dr. Garcia. <Shania Garcia - Last Filed: 08/24/16 15:55> Objective - Vital Signs/Intake and Output Vital Signs (last 24 hours): Temp Pulse Resp BP Pulse Ox 98 F 60 18 137/90 98 08/24/16 11:54 08/24/16 11:54 08/24/16 11:54 08/24/16 11:54 08/24/16 05:39 Intake and Output: 08/24/16 08/24/16 06:59 18:59 Intake Total 720 Output Total 750 Balance -30 - Medications Medications: Current Medications Digoxin (Lanoxin) 0.125 mg PO 1400 [facility] Last Admin: 08/24/16 14:30 Dose: 0.125 mg Famotidine (Pepcid) 40 mg PO HS [facility] Folic Acid (Folic Acid) 1 mg PO DAILY [facility] Dextrose (Dextrose 5% In Water 1000 Ml) 1,000 mls @ 250 mls/hr IV .Q4H [facility] Last Admin: 08/24/16 14:34 Dose: 250 mls/hr Levothyroxine Sodium (Synthroid) 25 mcg PO ACB [facility] Last Admin: 08/24/16 08:41 Dose: 25 mcg Lisinopril (Zestril) 2.5 mg PO DAILY [facility] Last Admin: 08/24/16 10:36 Dose: 2.5 mg Lorazepam (Ativan) 2 mg PO Q2 PRN; Protocol PRN Reason: Symptoms of alcohol withdrawl Last Admin: 08/24/16 04:09 Dose: 2 mg Lorazepam (Ativan) 2 mg PO Q6H [facility] PRN Reason: Protocol Last Admin: 08/24/16 08:41 Dose: 2 mg Metoprolol Tartrate (Lopressor) 50 mg PO BID [facility] Last Admin: 08/24/16 10:35 Dose: 50 mg Ondansetron HCl (Zofran Inj) 8 mg IVP Q6H PRN PRN Reason: Nausea/Vomiting Last Admin: 08/24/16 06:24 Dose: 8 mg Oxycodone HCl (Oxycodone Immediate Release Tab) 5 mg PO Q8H PRN PRN Reason: Pain, severe (8-10) Last Admin: 08/24/16 08:46 Dose: 5 mg Thiamine HCl (Vitamin B1 Tab) 100 mg PO DAILY [facility] Trazodone HCl (Desyrel) 50 mg PO HS PRN PRN Reason: Insomnia - Labs Labs: 08/24/16 06:00 08/24/16 13:19 PT 10.8 Seconds (9.9-11.8) 08/23/16 20:50 INR 1.00 (0.93-1.08) 08/23/16 20:50 APTT 33.4 Seconds (23.7-30.8) H 08/23/16 20:50 Attending/Attestation - Attestation I have personally seen and examined this patient.: Yes I have fully participated in the care of the patient.: Yes I have reviewed all pertinent clinical information, including history, physical exam and plan: Yes Notes (Text): 08/24/16 15:49 50 year old male with past medical history of paroxysmal afib, tachy-viki syndrome s/p pacemaker, cardiomyopathy, hypertension and chronic ETOH abuse who presented with complaint of chest pain and palpitations. He was found to have significant hyponatremia of 116 on admission. This has improved to 12-128 range. Will continue to monitor closely. Nephrology evaluation was requested. Serial cardiac enzymes are negative and ACS has been ruled out. Chest pain has resolved. He is on metoprolol for history of paroxysmal afib. He is on banana bag and ativan haliegh/prn for withdrawal symptoms. He was counselled on alcohol abstinence. Elevated TSH noted at 9.2, likely secondary to noncompliance with his synthroid. This was resumed and T4/T3 is ordered. Overall prognosis is guarded due to history of noncompliance and continuous ETOH abuse. Shania Garcia MD Hospitalist.
[2016-08-24 13:33] LABS: BLOOD UREA NITROGEN 10 mg/dL (7-21); CARBON DIOXIDE 22 mmol/L (21-33); CHLORIDE 96 mmol/L (98-107); GFR AFRICAN-AMERICAN > 60; GLUCOSE,RANDOM 139 mg/dL (70-110); POTASSIUM 4.9 mmol/L (3.6-5.0); SODIUM 125 mmol/L (132-148)
[2016-08-24 13:50] LABS: TROPONIN I < 0.01 ng/mL
[2016-08-24] MEDS: Digoxin 125 mcg (0.125 mg) Tab PO SCH (14:30)
--- NOTE | 2016-08-24 14:32 | CARD ---
APPROVED REPORT EKG Measurement Heart [id number] <Conclusion> Electronic ventricular pacemaker: 100% V. Paced
--- NOTE | 2016-08-24 17:23 | CON ---
DATE: 08/24/2016 NEPHROLOGY CONSULTATION NOTE A 50-year-old male with past medical history of paroxysmal AFib, tachybrady syndrome, status post pacemaker placement, hypertension, alcohol abuse, status post gastric bypass in 2000, presented to ED with AFib with palpitations and chest pain for most of the day yesterday. Nephrology is seeing patient for hyponatremia. The patient reports being in his usual state of health. He does admit to being a heavy drinker, drinking 24 twelve ounce cans of beer daily. However, he reports that he maintains a good diet, eats 7-8 small meals per day due to his gastric bypass, reports that this has not changed. However, he does report over the past month having dry heaves with no overt vomiting, also with loose stool over this past month, about 1 or 2 times per day. The patient denies any shortness of breath. Does report the chest pain radiated to his neck and left shoulder and that this is the first time that this has happened. Also reports having intermittent leg swelling for several weeks that has now resolved with the use of Lasix. PAST MEDICAL HISTORY: As above. SOCIAL HISTORY: Denies smoking, alcohol abuse as above. Denies any illicit drug use. FAMILY HISTORY: Father with liver and stomach cancer. Mother with ovarian cancer, diabetes. Reports extensive family history of AFib on males of maternal side. REVIEW OF SYSTEMS: CONSTITUTIONAL: Reports good appetite. HEENT: Denies any blurry vision, has been getting runny nose that he attributes to hayfever. RESPIRATORY: Denies any shortness of breath. CARDIOVASCULAR: As mentioned above. GASTROINTESTINAL: As mentioned above. Denies any blood in stool. GENITOURINARY: Denies any dysuria or difficulty urinating. MUSCULOSKELETAL: Has history of sciatica involving left leg. Takes naproxen approximately 1-2 times per day. PSYCHIATRIC: Denies any depression or anxiety. NEUROLOGIC: Reports numbness in both feet. VITAL SIGNS: This morning, blood pressure 137/90, heart rate 60, respirations 18, temperature 98, O2 sat 98% on room air. GENERAL: No distress, conversing coherently in full sentences. Moist mucous membranes, nonicteric. RESPIRATORY: Lungs clear to auscultation bilaterally. No rales, no rhonchi, no wheezes. HEART: S1, S2 normal, no murmurs, no gallops, no rubs. Regular rate and rhythm. ABDOMEN: Soft, nontender, nondistended. GENITOURINARY: No bladder distention. NEUROLOGICAL: 5/5 motor strength in bilateral upper and lower extremities. EXTREMITIES: No leg edema. SKIN: Warm to touch. No cyanosis. Good capillary refill. PSYCHIATRIC: Normal mood, normal affect. LABORATORY DATA: Labs on presentation last night, WBC 4.9, hemoglobin 13.1, hematocrit 37.6, platelets 172. Chemistry: Sodium 116, potassium 5.2, chloride 85, bicarb 21, BUN 9, creatinine 0.6. T-bili 2.1, AST 305, ALT 140. BNP 1620. Repeat labs this morning: Hemoglobin 11.9, hematocrit 34.9. Chemistry panel: Sodium 128, potassium 4.4, chloride 99, bicarb 21, BUN 9, creatinine 0.5, glucose 96, calcium 8.9, phosphorus 4.0, magnesium 1.6. T-bili 2.5, AST 285, ALT 128. TSH 9.20. ASSESSMENT AND PLAN: 1. Hyponatremia, although no history of overt gastrointestinal losses and patient reports eating well. Suspect that this is secondary to hypovolemia with inadequate solute intake and is supported by rapid correction of serum sodium after administering normal saline. Concern for rapid correction of serum sodium that can cause neurologic effects, namely osmotic demyelination. Therefore, we will attempt to lower serum sodium rapidly. Goal for tonight, i.e. after 24 hours of hospital stay, should be rise in serum sodium of no more than 6-8 mEq. Therefore, our goal for tonight should be serum sodium of about 122-124. Giving desmopressin intravenous 2 mcg x 1 along with D5 at 250 mL per hour. 2. Hypertension. Blood pressure appears controlled with heart rate controlled on lisinopril 2.5 mg daily, metoprolol 50 mg b.i.d. Continue the same for now. Continue to hold diuretics. 3. Hypothyroidism. TSH elevated at 9.20. Although patient does not appear symptomatic, may possibly be contributing to hyponatremia. Agree with restarting Synthroid dose. However, if patient was already on this same dose at home, need to increase. 4. Alcohol abuse. The patient counseled on harms of heavy alcohol use. Agree with Ativan taper protocol to avoid withdrawal symptoms. 5. Sciatica. The patient reports having excessive pain at times involving left leg. Need to ensure adequate pain control. Would avoid nonsteroidal anti- inflammatory drugs for now. Yayo Morel MD cc: [id number] TT: 08/24/2016 17:22:41 Confirmation # [id number] Dictation # [id number] sn MTDD
--- NOTE | 2016-08-24 18:38 | CON ---
DATE: 08/24/2016 HISTORY OF PRESENT ILLNESS: Shortly, the patient is a 50-year-old male with multiple medic al issues including a fever, tachy-viki syndrome, status post pacer. The patient has hypertension, cardiomyopathy, alcohol abuse, peptic ulcer disease, gastrointestinal bleed, and lot of complications from his alcohol use disorder. The patient was admitted on the medical floor for evaluation of palp itations. Psych consult was called for evaluation of mood symptoms. The patient has history of anxi ety and history of being admitted to the psychiatric inpatient unit in the past. The patient was see n and examined. The patient was drowsy, but easily arousable. 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 The patient said that after he was discharged from the hospital last time, he never followed up with AA meetings, NA meetings. The patient kept drinking alcohol on daily basis. The patient als o reported that AA meetings made him feel very depressed. The patient had impression that he is much better than others who attend AA meetings. The patient reported that he was not compliant with the medications and did not see his therapist and psychiatrist as an outpatient. The patient denied hear ing voices, denied seeing things, denied paranoid ideations. The patient denied thoughts of harming himself or others, denied intent or plan. PAST PSYCHIATRIC HISTORY: The patient has history of being admitted to the psychiatric inpatient uni t, history of major depressive disorder with psychotic symptoms, chronic alcohol abuse and dependence . The patient also has history of playing [email or web address]. VITAL SIGNS: Reviewed, stable. Temperature 98.0, pulse is , blood pressure 137/90, respiration s 18, oxygen saturation 98. MEDICATIONS: Reviewed: Dextrose, digoxin, Pepcid, folic acid, Synthroid, Zestril, Ativan 2 mg q. 2 hours p.r.n., also Ativan 2 mg q. 6 hours scheduled, lisinopril, Lopressor, oxycodone, thiamin, and t razodone. LABORATORY DATA: Reviewed. AST and ALT is 285/128. Sodium 125. Toxicology: Alcohol level was 227 . MENTAL STATUS EXAMINATION: The patient appears to be drowsy, arousable, alert and oriented to self, time, and place. The patient reported that he feels better today. Intermittent eye contact. Speech was normal rate, tone, quality, and quantity. Thought process was coherent and goal directed. Thou ght content: The patient denied visual, auditory, or tactile hallucinations. Denied paranoid ideati ons. The patient denied thoughts of harming himself or others, denied intent or plan. Insight and j udgment are fair. In regard of the medical issues, the patient was minimizing his substance abuse. Impulses are predictable. IMPRESSION: Alcohol use disorder, rule out mood disorder due to general medical condition. Rule out mood disorder due to chronic alcohol consumption. The patient has multiple medical issues. Please see medical team note for more detailed information. PLAN: Continue current management. The patient is on Ativan. Vital signs within normal limits. Th ere are no signs of withdrawal, just mild upper extremity tremor. The patient is to be continued on trazodone for depressive symptoms as well as insomnia, multivitamins, thiamine and folic acid. We wi ll follow up and advise accordingly. Thank you very much for letting me participate in care of your patient. Marcia Castillo MD cc: [id number] TT: 08/24/2016 18:38:35 Confirmation # [id number] Dictation # [id number] dn
[2016-08-24 18:43] LABS: BLOOD UREA NITROGEN 9 mg/dL (7-21); CALCIUM 8.7 mg/dL (8.4-10.5); CARBON DIOXIDE 23 mmol/L (21-33); CHLORIDE 93 mmol/L (98-107); GFR AFRICAN-AMERICAN > 60; GLUCOSE,RANDOM 121 mg/dL (70-110); POTASSIUM 4.2 mmol/L (3.6-5.0); SODIUM 122 mmol/L (132-148)
[2016-08-24] MEDS ORDERED: DiphenhydrAMINE 1% 1 EA TUBE TOP PRN (21:23)
[2016-08-24] MEDS: DiphenhydrAMINE 50 mg/ml Inj IVP PRN (21:40)
[2016-08-25] MEDS: Levothyroxine 25 MCG TAB PO SCH (08:25)
[2016-08-25 08:53] LABS: BASO # 0.01 K/mm3 (0.0-2.0); BASO % 0.5 % (0.0-3.0); EOS % 1.4 % (1.5-5.0); GRAN % 52.4 % (50.0-68.0); HEMATOCRIT 32.7 % (42.0-52.0); LYMPH # 0.6 (1.2-3.4); LYMPH % 30.5 % (22.0-35.0); MEAN CELL VOLUME 84.3 fL (80.0-105.0); MEAN CORPUSCULAR HEMOGLOBIN 28.4 pg (25.0-35.0); MEAN CORPUSCULAR HGB CONC 33.6 g/dl (31.0-37.0); MEAN PLATELET VOLUME 9.7 fl (7.0-11.0); MONO # 0.3 (0.1-0.6); MONO % 15.2 % (1.0-6.0); PLATELET COUNT 87 10^3/uL (120.0-450.0); RED CELL DISTRIBUTION WIDTH 13.2 % (11.5-14.5)
[2016-08-25 09:25] LABS: ADD MANUAL DIFF? NO; WHITE BLOOD COUNT 2.1 10^3/ul (4.5-11.0)
[2016-08-25 10:15] LABS: ALB/GLOB RATIO 1.1 (1.1-1.8); ALKALINE PHOSPHATASE 132 U/L (38-133); ALT/SGPT 124 U/L (7-56); AST/SGOT 212 U/L (15-59); BLOOD UREA NITROGEN 7 mg/dL (7-21); CARBON DIOXIDE 23 mmol/L (21-33); CHLORIDE 89 mmol/L (95-110); GFR AFRICAN-AMERICAN > 60; GLUCOSE,RANDOM 90 mg/dL (70-110); MAGNESIUM 1.5 mg/dL (1.7-2.2); PHOSPHOROUS 3.1 mg/dL (2.5-4.5); TOTAL PROTEIN 7.2 g/dL (5.8-8.3)
[2016-08-25 10:21] LABS: SODIUM 118 mmol/L (132-148)
[2016-08-25] MEDS ORDERED: Magnesium Sulfate 2 GM in Sodium Chloride 0.9% 100 ML IVPB ONE (11:21)
[2016-08-25 12:59] LABS: PH,URINE 7.5 (4.7-8.0); URINE BILIRUBIN NEGATIVE (NEGATIVE); URINE BLOOD NEGATIVE (NEGATIVE); URINE GLUCOSE (UA) NEGATIVE (NEGATIVE); URINE KETONE NEGATIVE (NEGATIVE); URINE LEUKOCYTE ESTERASE NEGATIVE Leu/uL (NEGATIVE); URINE PROTEIN NEGATIVE mg/dL (<30 mg/dL)
[2016-08-25 13:03] LABS: URINE APPEARANCE CLEAR (CLEAR); URINE COLOR YELLOW (YELLOW)
[2016-08-25] MEDS: Digoxin 125 mcg (0.125 mg) Tab PO SCH (13:36)
[2016-08-25] MEDS: DiphenhydrAMINE 50 mg/ml Inj IVP PRN ×2 (13:36→23:39)
[2016-08-25] MEDS: oxyCODONE 5 mg Immediate Release Tab PO PRN ×2 (13:36→23:34)
--- NOTE | 2016-08-25 13:48 | CARD ---
APPROVED REPORT EKG Measurement Heart [id number] <Conclusion> Atrial fibrillation IVCD STTW changes c/w ischemia
--- NOTE | 2016-08-25 13:57 | PN ---
DATE: 08/25/2016 Shortly, patient is a 50-year-old male, history of alcohol use disorder, multiple medical c omplications due to that addiction. The patient was seen initially yesterday for depressive symptoms as well as for alcohol withdrawal. The patient was seen today at the morning time. The patient pre sented to be anxious. The patient said that he has pressure like feeling in his chest. Medical team was called as well as cardiology team was called. Besides that, patient said that he does not want to go to the psychiatric inpatient unit and he preferred to go to inpatient rehab. section gang worker was notified. The patient denied thoughts of harming himself or others, denied intent or plan. Denied hearing voices, denied seeing things. As per collateral information from the nursing side, patient d oes not have any agitation or aggression and patient is medication compliant. Not psychotic. VITAL SIGNS: Stable. MEDICATIONS: Reviewed. The patient is on digoxin, Benadryl, Pepcid, folic acid, Synthroid, Ativan 2 mg p.o. q. 2 hours as needed and q. 6 hours , oxycodone and trazodone. LABORATORIES: Reviewed. WBC cells are 2.1. Sodium 118 today. AST and ALT are 212 and 124 respecti vely. MENTAL STATUS EXAMINATION: The patient presented to be alert and oriented. Intermittent eye contact . Speech was underproductive, yes/no answers. Mood described "I'm the same way, depressed." Affect was constricted, mood congruent. Thought process was coherent, goal directed. Thought content: Th e patient denied visual, auditory, tactile hallucinations, denied paranoid ideation. The patient den ied thoughts of harming himself or others. Denied intent or plan. Insight and judgment are improvin g, but still limited into his alcohol addiction. Impulses are well controlled. IMPRESSION: Rule out substance-induced mood disorder, alcohol use disorder, rule out mood disorder d ue to general medical condition. The patient has multiple medical issues including atrial fibrillati on, electrolyte imbalance, history of congestive heart failure, hypothyroidism. PLAN: The patient wants to go to inpatient rehab. field services analyst were notified. The patient does not want to go to psychiatric inpatient unit. The patient is ambivalent about his willingness to sig n into the psychiatric inpatient unit for depressive symptoms as well as inpatient rehab. We need to continue motivational interviewing. The patient seems to be in contemplation stage. We will follow up and advise accordingly. Should you have any questions, give me a call back. Marcia Castillo MD cc: [id number] TT: 08/25/2016 13:57:08 Confirmation # [id number] Dictation # [id number]
[2016-08-25] MEDS ORDERED: Sodium Chloride 3% 500 ML IV SCH (16:15)
[2016-08-25 17:26] LABS: TROPONIN I < 0.01 ng/mL
[2016-08-25 17:44] LABS: BLOOD UREA NITROGEN 7 mg/dL (7-21); CALCIUM 9.4 mg/dL (8.4-10.5); CARBON DIOXIDE 24 mmol/L (21-33); CHLORIDE 91 mmol/L (95-110); GFR AFRICAN-AMERICAN > 60; GLUCOSE,RANDOM 96 mg/dL (70-110); POTASSIUM 4.6 mmol/L (3.6-5.0); SODIUM 123 mmol/L (132-148)
--- NOTE | 2016-08-25 18:18 | CP.PCM.PN ---
<Karson Renner - Last Filed: 08/25/16 18:14> Subjective - Date & Time of Evaluation Date of Evaluation: 08/25/16 Time of Evaluation: 07:20 - Subjective Subjective: Internal Medicine Progress Note for Dr. Garcia. Patient seen and examined at bedside. Today is hospital day 3. No acute events overnight, but this AM, after initial exam, nursing paged and reported patient complaining of chest pain while the tele monitor noted HR of 150's-160' s that was suspicious for AFib RVR. On repeat exam, chest pain resolved and patient was resting comfortably, but EKG obtained at that time was AFib in 70's with what appeared to be new ST depressions in anterior leads (V1-V4). Cardio was consulted. Patient's only other complaint is itching with pain meds, was requesting conversion from Oxycodone to IV Morphine, but after explaining the risk of histamine release with IV morphine (and possible worse itching), pt opted to remain on Oxycodone. Tolerating diet without complaint. Objective - Vital Signs/Intake and Output Vital Signs (last 24 hours): Temp Pulse Resp BP Pulse Ox 98 F 95 H 20 129/69 99 08/25/16 12:00 08/25/16 17:43 08/25/16 12:00 08/25/16 17:43 08/25/16 05:14 Intake and Output: 08/25/16 08/25/16 06:59 18:59 Intake Total 4766 Output Total 1250 Balance 3516 - Medications Medications: Current Medications Digoxin (Lanoxin) 0.125 mg PO 1400 DAMIR Last Admin: 08/25/16 13:36 Dose: 0.125 mg Diphenhydramine HCl (Benadryl) 50 mg IVP Q4H PRN PRN Reason: Allergy symptoms Last Admin: 08/25/16 13:36 Dose: 50 mg Diphenhydramine HCl (Benadryl Maximum Strength 1%) 1 ea TOP Q6H PRN PRN Reason: Itching / Pruritus Last Admin: 08/24/16 22:39 Dose: 1 ea Famotidine (Pepcid) 40 mg PO HS DAMIR Folic Acid (Folic Acid) 1 mg PO DAILY DAMIR Last Admin: 08/25/16 09:24 Dose: 1 mg Levothyroxine Sodium (Synthroid) 50 mcg PO ACB DAMIR Lisinopril (Zestril) 2.5 mg PO DAILY [facility] Last Admin: 08/25/16 09:22 Dose: 2.5 mg Lorazepam (Ativan) 2 mg PO Q2 PRN; Protocol PRN Reason: Symptoms of alcohol withdrawl Last Admin: 08/24/16 04:09 Dose: 2 mg Lorazepam (Ativan) 2 mg PO Q6H DAMIR PRN Reason: Protocol Last Admin: 08/25/16 15:10 Dose: Not Given Metoprolol Tartrate (Lopressor) 50 mg PO BID [facility] Last Admin: 08/25/16 17:43 Dose: 50 mg Ondansetron HCl (Zofran Inj) 8 mg IVP Q6H PRN PRN Reason: Nausea/Vomiting Last Admin: 08/25/16 12:42 Dose: 8 mg Oxycodone HCl (Oxycodone Immediate Release Tab) 5 mg PO Q8H PRN PRN Reason: Pain, severe (8-10) Last Admin: 08/25/16 13:36 Dose: 5 mg Sodium Chloride (Sodium Chloride Tab) 2 gm PO Q6H [facility] Last Admin: 08/25/16 12:29 Dose: 2 gm Thiamine HCl (Vitamin B1 Tab) 100 mg PO DAILY [facility] Last Admin: 08/25/16 09:24 Dose: 100 mg Trazodone HCl (Desyrel) 50 mg PO HS PRN PRN Reason: Insomnia - Labs Labs: 08/25/16 08:10 08/25/16 16:30 PT 10.8 Seconds (9.9-11.8) 08/23/16 20:50 INR 1.00 (0.93-1.08) 08/23/16 20:50 APTT 33.4 Seconds (23.7-30.8) H 08/23/16 20:50 - Additional Findings Additional findings: - Constitutional Appears: Non-toxic, No Acute Distress, Resting comfortably in bed - Head Exam Head Exam: ATRAUMATIC, NORMAL INSPECTION, NORMOCEPHALIC - Eye Exam Eye Exam: EOMI, Normal appearance. absent: Conjunctival injection, Scleral icterus - ENT Exam ENT Exam: Mucous Membranes Moist. absent: Mucous Membranes Dry - Neck Exam Neck Exam: Full ROM - Respiratory Exam Respiratory Exam: Clear to Ausculation Bilateral, NORMAL BREATHING PATTERN. absent: Rales, Rhonchi, Wheezes - Cardiovascular Exam Cardiovascular Exam: REGULAR RHYTHM, RRR, +S1, +S2, Chest pain not reproducible with chest wall palpation. absent: Bradycardia, Tachycardia, Irregular Rhythm, JVD, +S4 - GI/Abdominal Exam GI & Abdominal Exam: Soft, Tenderness (patient reports tenderness to palpation, but exhibits no overt signs of discomfort or pain), Normal Bowel Sounds. absent : Distended, Firm, Rigid, Diminished Bowel Sounds, Hyperactive Bowel Sounds, Hypoactive Bowel Sounds - Extremities Exam Extremities Exam: Normal Capillary Refill, Normal Inspection. absent: Calf Tenderness, Joint Swelling, Pedal Edema, Tenderness - Neurological Exam Neurological Exam: Alert, Awake, Oriented x3 - Psychiatric Exam Psychiatric exam: Normal Affect, Normal Mood - Skin Skin Exam: Dry, Intact, Normal Color, Warm Assessment and Plan - Assessment and Plan (Free Text) Assessment: This is a 50 yo M with PMH of paroxysmal AFib, tachy-viki syndrome s/p pacer, hypertension, cardiomyopathy, alcohol abuse, and peptic ulcer disease who presented to [facility] for sensation of palpitations and sub-sternal chest pain/ pressure, and was found to be hyponatremic. He was also found to be back in AFib this AM while complaining of some intermittent chest pain. Plan: 1) Chest pain -ACS vs GERD vs 2/2 arrhythmia vs 2/2 anxiety related to sensation of arrhythmia -Trops x3 negative; repeat set x3 ordered with recurrence of chest pain with afib on tele, #1 trop negative -Tele monitoring negative for AFib with RVR, HR since admission 60's-80's -Continue home ASA, Metoprolol -Cardio consulted (Dr. Collins), appreciate all recs 2) Hyponatremia -116 on admission, too rapidly corrected to 128, back to 118 this AM, up to 123 this afternoon with Fluid restriction and salt tabs as per Nephro -No acute changes in mentation, continue to monitor, avoid too aggressive correction due to risk for central pontine myelinosis -BMP Q4H -Does not appear hyper- or hypo-volemic, likely euvolemic hyponatremia, suspect beer potomania given persistent alcohol abuse and EtOH lvl 227 on admit -Hx hypothyroidism on synthroid, TSH elevated so likely non-compliant with medication, likely contributory to hyponatremia -Nephro consulted (Dr. Morel), appreciate their recs 3) EtOH Withdrawal -Banana bag on admit, now on hold due strict fluid management for hyponatremia that corrected too rapidly; will supplement Thiamine/Folic Acid separately -[facility] Protocol -Ativan DAMIR and PRN q2; No PRN doses needed overnight -Avoid Librium given elevated LFTs 4) Hx CHF -chronic systolic with cardiomyopathy 2/2 to EtOH abuse -Doesn't appear to be acutely exacerbated right now based on BNP, physical exam findings (no crackles, no LE edema), and lack of SOB -monitor clinically -continue home CHF medications 5) Depression/EtOH Abuse -patient is requesting inpatient psych voluntary, Psych consulted (Dr. Kennedy), appreciate all recs -Per Psych, continue medical management, will follow 6) Hypothyroidism -TSH 9.2 on admit, pt admits non-compliant with home synthroid because he ran out ~2-3 weeks prior -Increased synthroid to 50mcg daily, will repeat thyroid panel after 1-2 days on new regimen Dispo: Tele inpt, [facility] protocol, continuing to monitor Sodium lvls FEN: Heart-Healthy, 1L fluid restriction as per Nephro Access: Peripheral IV Consults: Nephro, Psych, Card Ppx: Pepcid for GI, SCDs for DVT Patient seen, reviewed, and discussed with Dr. Garcia. <Shania Garcia - Last Filed: 08/25/16 22:15> Objective - Vital Signs/Intake and Output Vital Signs (last 24 hours): Temp Pulse Resp BP Pulse Ox 98.5 F 123 H 20 129/69 99 08/25/16 18:00 08/25/16 18:00 08/25/16 18:00 08/25/16 18:00 08/25/16 05:14 Intake and Output: 08/25/16 08/26/16 18:59 06:59 Intake Total 370 Balance 370 - Medications Medications: Current Medications Digoxin (Lanoxin) 0.125 mg PO 1400 DAMIR Last Admin: 08/25/16 13:36 Dose: 0.125 mg Diphenhydramine HCl (Benadryl) 50 mg IVP Q4H PRN PRN Reason: Allergy symptoms Last Admin: 08/25/16 13:36 Dose: 50 mg Diphenhydramine HCl (Benadryl Maximum Strength 1%) 1 ea TOP Q6H PRN PRN Reason: Itching / Pruritus Last Admin: 08/24/16 22:39 Dose: 1 ea Famotidine (Pepcid) 40 mg PO HS DAMIR Folic Acid (Folic Acid) 1 mg PO DAILY [facility] Last Admin: 08/25/16 09:24 Dose: 1 mg Levothyroxine Sodium (Synthroid) 50 mcg PO ACB DAMIR Lisinopril (Zestril) 2.5 mg PO DAILY [facility] Last Admin: 08/25/16 09:22 Dose: 2.5 mg Lorazepam (Ativan) 2 mg PO Q2 PRN; Protocol PRN Reason: Symptoms of alcohol withdrawl Last Admin: 08/24/16 04:09 Dose: 2 mg Lorazepam (Ativan) 2 mg PO Q6H DAMIR PRN Reason: Protocol Last Admin: 08/25/16 20:44 Dose: 2 mg Metoprolol Tartrate (Lopressor) 50 mg PO BID [facility] Last Admin: 08/25/16 17:43 Dose: 50 mg Ondansetron HCl (Zofran Inj) 8 mg IVP Q6H PRN PRN Reason: Nausea/Vomiting Last Admin: 08/25/16 19:03 Dose: 8 mg Oxycodone HCl (Oxycodone Immediate Release Tab) 5 mg PO Q8H PRN PRN Reason: Pain, severe (8-10) Last Admin: 08/25/16 13:36 Dose: 5 mg Sodium Chloride (Sodium Chloride Tab) 2 gm PO Q6H DAMIR Last Admin: 08/25/16 18:37 Dose: 2 gm Thiamine HCl (Vitamin B1 Tab) 100 mg PO DAILY [facility] Last Admin: 08/25/16 09:24 Dose: 100 mg Trazodone HCl (Desyrel) 50 mg PO HS PRN PRN Reason: Insomnia - Labs Labs: 08/25/16 08:10 08/25/16 20:20 PT 10.8 Seconds (9.9-11.8) 08/23/16 20:50 INR 1.00 (0.93-1.08) 08/23/16 20:50 APTT 33.4 Seconds (23.7-30.8) H 08/23/16 20:50 Attending/Attestation - Attestation I have personally seen and examined this patient.: Yes I have fully participated in the care of the patient.: Yes I have reviewed all pertinent clinical information, including history, physical exam and plan: Yes Notes (Text): 08/25/16 22:12 50 year old male with past medical history of paroxysmal afib, tachy-viki syndrome s/p pacemaker, cardiomyopathy, hypertension and chronic ETOH abuse who presented with complaint of chest pain and palpitations. Today he again complained of chest pain with transient episode of afib. Cardiac enzymes have been negative. He is on metoprolol. Cardiology evaluation is requested. He was found to have significant hyponatremia of 116 on admission. This has improved yesterday but is 118 again today. Case was discussed with nephrology who recommended fluid restriction for now and repeat bmp in afternoon. He is on banana bag and ativan damir/prn for withdrawal symptoms. He was counselled on alcohol abstinence. Elevated TSH noted at 9.2, likely secondary to noncompliance with his synthroid. Synthroid is increased to 50 mcg. Overall prognosis is guarded due to history of noncompliance and continuous ETOH abuse. Shania Garcia MD Hospitalist.
--- NOTE | 2016-08-25 20:22 | PN ---
DATE: 08/25/2016 HISTORY OF PRESENT ILLNESS: A 50-year-old male with past medical history of paroxysmal AFib, hyperte nsion, alcohol abuse, admitted with AFib and chest pain. Nephrology seeing the patient for severe hy ponatremia. The patient reportedly drinking a lot of water, reports drinking about 1 gallon of water daily in add ition to the twenty-four 12-ounce cans of beer that he consumes daily. The patient reports that chapin ng current admission, he has been drinking even more water. When asked why, he says it is just out o f habit, that he needs to hold something in his hand and drink it. PHYSICAL EXAMINATION: VITAL SIGNS: This morning, blood pressure 146/77, heart rate 72, respirations 19, temperature 98.4, O2 sat 99% on room air. GENERAL: No distress, communicating coherently in full sentences. HEENT: Moist mucous membranes. Nonicteric. RESPIRATORY: Lungs are clear to auscultation bilaterally. No rales, no rhonchi, no wheezes. HEART: S1, S2 normal. No murmurs, no gallops, no rubs. ABDOMEN: Soft, nontender, nondistended. EXTREMITIES: No leg edema. SKIN: Warm, no cyanosis. PSYCHIATRIC: Normal mood, normal affect. LABORATORY DATA: This morning, WBC 2.1, hemoglobin 11.0, hematocrit 32.7, platelets 87. Chemistry p [place]: Sodium 118, potassium 4.0, chloride 89, bicarbonate 23, BUN 7, creatinine 0.5, calcium 9.0, ph osphorus 3.1, AST 212, ALT 124. T-bili 4.0, increased from 2.5 yesterday. Albumin 3.8. ASSESSMENT: Hyponatremia, severe. The patient required us to rapidly lower serum sodium after hypon atremia had been too rapidly corrected, which is a common phenomenon. Etiology of hyponatremia is li ruth inadequate solute intake, likely on top of some element of volume depletion. The patient's seru m sodium was at goal yesterday evening after about 20 hours of 122. However, this morning, serum sod ium decreased further to 118. On further history, the patient admits to excess free water intake. U rine electrolytes showing urine osmolality of 241, which should be enough to raise the serum sodium s pontaneously if patient had not taken so much free water. The patient was subsequently water restrict ed today and serum sodium did rise spontaneously to 123 by late this afternoon. PLAN: 1. We will repeat serum sodium again later this evening. Our goal should be serum sodium of no more than about 125. No role for hypertonic saline in this situation as patient is putting out excessive amounts of urine and with a urine osmolality, which is minimally suppressed, patient should continue to correct spontaneously and addition of hypertonic saline would cause too rapid of correction. 2. Hypertension. Blood pressure has been relatively controlled. The patient is currently on lisino pril 2.5 mg daily and metoprolol 50 mg b.i.d. Continue the same. 3. Alcohol abuse is a risk factor for developing osmotic demyelination. The patient counseled on the harms of excessive binge drinking. 4. Hypothyroidism may be contributing to hyponatremia. Levothyroxine increased to 50 mcg daily. Co ntinue to monitor. Yayo Morel MD cc: [id number] TT: 08/25/2016 20:22:01 Confirmation # [id number] Dictation # [id number] ln
[2016-08-25 20:36] LABS: BLOOD UREA NITROGEN 8 mg/dL (7-21); CALCIUM 9.2 mg/dL (8.4-10.5); CARBON DIOXIDE 25 mmol/L (21-33); CHLORIDE 95 mmol/L (98-107); GFR AFRICAN-AMERICAN > 60; GLUCOSE,RANDOM 119 mg/dL (70-110); POTASSIUM 4.4 mmol/L (3.6-5.0); SODIUM 126 mmol/L (132-148)
[2016-08-25 20:49] LABS: TROPONIN I < 0.01 ng/mL
--- NOTE | 2016-08-25 23:04 | CON ---
DATE: 08/25/2016 CONSULT SERVICE: Cardiology. REASON FOR CONSULTATION: Nonischemic cardiomyopathy, paroxysmal atrial fibrillation, alcohol abuse, tachycardia, status post permanent pacemaker, sick sinus syndrome. BRIEF CLINICAL HISTORY: A 50-year-old male, active alcohol abuse, history of paroxysmal atrial fibri llation, not on anticoagulation because of heavy alcohol abuse and noncompliance with medication, his tory of tachybrady syndrome, status post permanent pacemaker, came in with complaint of the chest carolyn n of 2 days indurations, decided to come to the Emergency Room. PAST MEDICAL HISTORY: Significant for paroxysmal atrial fibrillation, tachybrady syndrome, status po st permanent pacemaker, cardiomyopathy, alcohol abuse, and peptic ulcer disease. CURRENT MEDICATIONS: Digoxin, Colace, Feosol, folic acid, levothyroxine, Zestril, metoprolol, multiv itamin, not on anticoagulation because very noncompliant. FAMILY HISTORY: Significant for coronary artery disease status post father from an [place]. PAST SURGICAL HISTORY: History of gastric bypass, multiple complications, history of peptic ulcer di sease, history of permanent pacemaker, previous cardiac workup as follows the patient had echocardiog tim done 05/2015 that shows ejection fraction 30%-35%, 4-chamber dilatation, moderate to severe mitr al regurgitation, moderate to severe tricuspid regurgitation, RV systolic pressure 56, moderately dil ated RV systolic pressure of 55, systolic function of RV moderately reduced. No history of RV thromb us noted at that time. Status post permanent pacemaker, single chamber VVI on 04/20/2015 [employer] be cause of sick sinus syndrome, tachybrady syndrome. History of cardiac catheterization by Dr. Mic haque did not find in the chart. History of alcohol abuse, history of tobacco abuse, history of last ech o 06/16/2015 as mentioned, 4-chamber dilatation consistent with moderate to severe MR, TR, RV systolic pressure 55. No thrombus noted. There is no mass in LV dated 06/16/2015, moderate to severe tricusp id regurgitation on echo moderately reduced. No thrombus noted. SOCIAL HISTORY: Active tobacco abuse, active alcohol abuse, multiple admissions with alcohol intoxic ation. REVIEW OF SYSTEMS: As per HPI. PHYSICAL EXAMINATION: VITAL SIGNS: Temperature afebrile, heart rate 81, blood pressure 133/90. HEENT: PERRLA. Extraocular muscles intact. NECK: Supple. No carotid bruits. No thyromegaly. CHEST: Clear to auscultation. HEART: S1, S2 regular. ABDOMEN: Soft. EXTREMITIES: Clubbing and cyanosis negative. LABORATORY DATA: Blood workup as follows: WBC 2.9, hemoglobin 11, hematocrit 32.7, platelet count 8 7. Chemistry shows sodium 118, chloride ____, carbon dioxide 23, anion gap of 10, BUN 7, creatinine 0.5. Elevated AST, ALT. Troponin negative. No evidence of acute myocardial infarction, no evidence of acute coronary syndrome. History of nonischemic cardiomyopathy, permanent pacemaker, paroxysmal atrial fibrillation, alcohol a buse, tobacco abuse. Admitting blood alcohol level is 227. RECOMMENDATION: Continue normal saline. Not a candidate for anticoagulation because very noncomplia nt because of heavy alcohol abuse. Blood alcohol level 227. Continue a gentle saline, monitor elect rolytes. Continue 3% saline and monitor electrolytes. ____ to the current regimen. Continue digoxi n, continue metoprolol, continue supplement. We will follow with you. We will add 3% saline at 20 m L an hour. Tere Albrecht MD cc: [id number] TT: 08/25/2016 23:04:05 Confirmation # [id number] Dictation # [id number] viviana
[2016-08-26 06:17] LABS: MEAN CELL VOLUME 86.3 fL (80.0-105.0); MEAN CORPUSCULAR HEMOGLOBIN 29.3 pg (25.0-35.0); MEAN CORPUSCULAR HGB CONC 33.9 g/dl (31.0-37.0); MEAN PLATELET VOLUME 10.6 fl (7.0-11.0); PLATELET COUNT 113 10^3/uL (120.0-450.0); RED CELL DISTRIBUTION WIDTH 13.8 % (11.5-14.5)
[2016-08-26 06:21] LABS: ALB/GLOB RATIO 1.1 (1.1-1.8); ALKALINE PHOSPHATASE 147 U/L (38-133); ALT/SGPT 142 U/L (7-56); AST/SGOT 218 U/L (15-59); BLOOD UREA NITROGEN 12 mg/dL (7-21); CALCIUM 9.3 mg/dL (8.4-10.5); CARBON DIOXIDE 24 mmol/L (21-33); CHLORIDE 98 mmol/L (98-107); GFR AFRICAN-AMERICAN > 60; GLUCOSE,RANDOM 96 mg/dL (70-110); PHOSPHOROUS 3.9 mg/dL (2.5-4.5); POTASSIUM 4.5 mmol/L (3.6-5.0); SODIUM 131 mmol/L (132-148)
[2016-08-26 06:27] LABS: WHITE BLOOD COUNT 2.8 10^3/ul (4.5-11.0)
[2016-08-26 06:28] LABS: ADD MANUAL DIFF? YES
[2016-08-26 06:57] LABS: BAND 1 % (0-2); NEUTROPHIL 52 % (50.0-70.0)
[2016-08-26 06:58] LABS: PLATELET ESTIMATE NORMAL (NORMAL)
[2016-08-26] MEDS: oxyCODONE 5 mg Immediate Release Tab PO PRN ×2 (08:55→18:01)
[2016-08-26] MEDS: Levothyroxine 50 MCG TAB PO SCH (08:58)
[2016-08-26] MEDS: DiphenhydrAMINE 50 mg/ml Inj IVP PRN ×2 (09:01→18:01)
--- NOTE | 2016-08-26 10:24 | PN ---
DATE: 08/26/2016 The patient was seen today at the morning time. The patient presented to be sleepy. The patient too k trazodone yesterday at the nighttime, slept much better. At the same time, patient appears to be c onfused, was asking questions about math as well as some educational program in inpatient alcoholic r ehab. At the same time, patient acknowledged that his answers were a little bit off. The patient sa id that he did not fully wake up, but patient is alert and oriented, patient most likely was confused because of medication at the nighttime. Other than that, patient does not want to go to the psychia tric inpatient unit. The patient wants to go to inpatient rehab for his alcoholic addiction, but thi s narrative writer will be not surprised if patient will change his mind and he will not go there. Social serv ices were involved yesterday. This narrative writer had prolonged conversation with the case management and so cial workers. Social workers need to provide phone number for inpatient rehabs. Besides that, vital signs are stable. VITAL SIGNS: The patient is still in V-Fib. Pulse rate is 179, temperature 98.0, blood pressure 126 /85, respirations 20, oxygen saturation is 97%. MEDICATIONS: Reviewed. From the psychiatric standpoint, patient is on Ativan 2 mg q. 6 hours schedu led and also he is on trazodone 50 mg at the nighttime for insomnia and depression. LABORATORIES: Reviewed. Most recent from today. The patient still has WBC cells 2.8. Chemistry al so reviewed. Sodium is 131, AST and ALT still elevated. MENTAL STATUS EXAMINATION: The patient appears to be disheveled, sleepy. Intermittent eye contact. Speech was underproductive, yes/no answers. At times, answers were not related to the questions marcella mendez asked. Thought process was goal directed. Thought content: The patient denied visual, auditory, tactile hallucinations, denied paranoid ideations. The patient denied thoughts of harming himself o r others, denied intent or plan. Insight and judgment are limited into his addiction. Impulses are well controlled. IMPRESSION: Alcohol use disorder, rule out substance-induced mood disorder, alcohol withdrawal sympt oms are under control. The patient has multiple medical complications because of his chronic alcohol consumption. The patient ventricular fibrillation. The patient also has electrolyte imbalance, als o history of congestive heart failure, hypothyroidism. PLAN: Continue current management. Continue current medications. The patient's vital signs seem to be stable. Start to taper down Ativan. Trazodone at the nighttime for insomnia. This narrative writer had p ryand conversations with block and case maker and social workers yesterday. [facility] The patient is aware of naltrexone and does not want to co ntinue that medication. The patient might benefit from inpatient rehab, but patient is ambivalent ab out that. Over the weekend, Dr. French will see the patient every other day. Should you have any que stions, give me a call back. Marcia Castillo MD cc: [id number] TT: 08/26/2016 10:23:56 Confirmation # [id number] Dictation # [id number] en
[2016-08-26 14:07] LABS: BLOOD UREA NITROGEN 15 mg/dL (7-21); CALCIUM 9.5 mg/dL (8.4-10.5); CARBON DIOXIDE 25 mmol/L (21-33); CHLORIDE 98 mmol/L (98-107); GFR AFRICAN-AMERICAN > 60; GLUCOSE,RANDOM 79 mg/dL (70-110); POTASSIUM 4.6 mmol/L (3.6-5.0); SODIUM 129 mmol/L (132-148)
[2016-08-26] MEDS: Digoxin 125 mcg (0.125 mg) Tab PO SCH (14:38)
--- NOTE | 2016-08-26 15:40 | CP.PCM.PN ---
<Karson Renner - Last Filed: 08/26/16 15:37> Subjective - Date & Time of Evaluation Date of Evaluation: 08/26/16 Time of Evaluation: 07:25 - Subjective Subjective: Internal Medicine Progress Note for Dr. Garcia. Patient seen and examined at bedside. Today is hospital day 4. No acute events overnight. Walked by nursing this AM, became tachycardic to 120's-140s with exertion but remained hemodynamically stable, without complaints. Itching improved with IV benadryl, no new chest pain today, no shortness of breath, no abdominal pain. Objective - Vital Signs/Intake and Output Vital Signs (last 24 hours): Temp Pulse Resp BP Pulse Ox 98.2 F 80 19 114/60 97 08/26/16 12:00 08/26/16 12:00 08/26/16 12:00 08/26/16 12:00 08/26/16 06:00 Intake and Output: 08/26/16 08/26/16 06:59 18:59 Intake Total 740 Output Total 1700 Balance -960 - Medications Medications: Current Medications Digoxin (Lanoxin) 0.125 mg PO 1400 DAMIR Last Admin: 08/26/16 14:38 Dose: 0.125 mg Diphenhydramine HCl (Benadryl) 50 mg IVP Q4H PRN PRN Reason: Allergy symptoms Last Admin: 08/26/16 09:01 Dose: 50 mg Diphenhydramine HCl (Benadryl Maximum Strength 1%) 1 ea TOP Q6H PRN PRN Reason: Itching / Pruritus Last Admin: 08/24/16 22:39 Dose: 1 ea Famotidine (Pepcid) 40 mg PO HS DAMIR Last Admin: 08/25/16 23:34 Dose: 40 mg Folic Acid (Folic Acid) 1 mg PO DAILY DAMIR Last Admin: 08/26/16 09:39 Dose: 1 mg Levothyroxine Sodium (Synthroid) 50 mcg PO ACB DAMIR Last Admin: 08/26/16 08:58 Dose: 50 mcg Lisinopril (Zestril) 2.5 mg PO DAILY DAMIR Last Admin: 08/26/16 09:39 Dose: 2.5 mg Lorazepam (Ativan) 1 mg PO Q3H DAMIR PRN Reason: Protocol Lorazepam (Ativan) 2 mg PO Q6H DAMIR PRN Reason: Protocol Metoprolol Tartrate (Lopressor) 50 mg PO BID DAMIR Last Admin: 08/26/16 09:40 Dose: 50 mg Ondansetron HCl (Zofran Inj) 8 mg IVP Q6H PRN PRN Reason: Nausea/Vomiting Last Admin: 08/25/16 19:03 Dose: 8 mg Oxycodone HCl (Oxycodone Immediate Release Tab) 5 mg PO Q8H PRN PRN Reason: Pain, severe (8-10) Last Admin: 08/26/16 08:55 Dose: 5 mg Thiamine HCl (Vitamin B1 Tab) 100 mg PO DAILY DAMIR Last Admin: 08/26/16 09:39 Dose: 100 mg Trazodone HCl (Desyrel) 50 mg PO HS PRN PRN Reason: Insomnia Last Admin: 08/26/16 02:53 Dose: 50 mg - Labs Labs: 08/26/16 05:30 08/26/16 13:45 PT 10.8 Seconds (9.9-11.8) 08/23/16 20:50 INR 1.00 (0.93-1.08) 08/23/16 20:50 APTT 33.4 Seconds (23.7-30.8) H 08/23/16 20:50 - Additional Findings Additional findings: - Constitutional Appears: Non-toxic, No Acute Distress, Resting comfortably in bed - Head Exam Head Exam: ATRAUMATIC, NORMAL INSPECTION, NORMOCEPHALIC - Eye Exam Eye Exam: EOMI, Normal appearance. absent: Conjunctival injection, Scleral icterus - ENT Exam ENT Exam: Mucous Membranes Moist. absent: Mucous Membranes Dry - Neck Exam Neck Exam: Full ROM - Respiratory Exam Respiratory Exam: Clear to Ausculation Bilateral, NORMAL BREATHING PATTERN. absent: Rales, Rhonchi, Wheezes - Cardiovascular Exam Cardiovascular Exam: REGULAR RATE & RHYTHM in bed and in chair/Tachy to 120-130' s on tele monitor when ambulating with nursing, +S1, +S2, Chest pain not reproducible with chest wall palpation. absent: Bradycardia, Tachycardia, Irregular Rhythm, JVD, +S4 - GI/Abdominal Exam GI & Abdominal Exam: Soft, Normal Bowel Sounds. absent: Distended, Firm, Rigid , Diminished Bowel Sounds, Hyperactive Bowel Sounds, Hypoactive Bowel Sounds - Extremities Exam Extremities Exam: Normal Capillary Refill, Normal Inspection. absent: Calf Tenderness, Joint Swelling, Pedal Edema, Tenderness - Neurological Exam Neurological Exam: Alert, Awake, Oriented x3 - Psychiatric Exam Psychiatric exam: Normal Affect, Normal Mood - Skin Skin Exam: Dry, Intact, Normal Color, Warm Assessment and Plan - Assessment and Plan (Free Text) Assessment: This is a 50 yo M with PMH of paroxysmal AFib, tachy-viki syndrome s/p pacer, hypertension, cardiomyopathy, alcohol abuse, and peptic ulcer disease who presented to [facility] [place] for sensation of palpitations and sub-sternal chest pain/ pressure, and was found to be hyponatremic. Plan: 1) Chest pain, Hx AFib with RVR -ACS vs GERD vs 2/2 arrhythmia vs 2/2 anxiety related to sensation of arrhythmia -Trops x3 negative; repeat set x3 negative -Tachy with ambulation 120's-130's, otherwise stable in 70's-80's -Continue home ASA, Metoprolol -Cardio consulted (Dr. Collins), appreciate all recs; not a candidate for AC due to hx of non-compliance 2) Hyponatremia -re-corrected to high to 131, as per Nephro holding salt tabs and given 1L D5W to bring Na back down to appropriate level; continue 1L fluid restriction -No acute changes in mentation, continue to monitor, avoid too aggressive correction due to risk for central pontine myelinosis -Does not appear hyper- or hypo-volemic, likely euvolemic hyponatremia, suspect beer potomania given persistent alcohol abuse and EtOH lvl 227 on admit -Hx hypothyroidism on synthroid, TSH elevated on admission and pt admits non- compliant with medication, likely contributory to hyponatremia -Nephro consulted (Dr. Morel), appreciate their recs 3) EtOH Withdrawal -Banana bag on admit, now on hold due strict fluid management for hyponatremia that corrected too rapidly; will supplement Thiamine/Folic Acid separately -CIWA Protocol -weaning down Ativan to 1mg DAMIR q6 and 1mg PRN q3 -Avoid Librium given elevated LFTs 4) Hx CHF -chronic systolic with cardiomyopathy 2/2 to EtOH abuse -Doesn't appear to be acutely exacerbated right now based on BNP, physical exam findings (no crackles, no LE edema), and lack of SOB -monitor clinically -continue home CHF medications 5) Depression/EtOH Abuse -patient is requesting inpatient psych voluntary, Psych consulted (Dr. Kennedy), appreciate all recs -Per Psych, continue medical management, will follow 6) Hypothyroidism -TSH 9.2 on admit, pt admits non-compliant with home synthroid because he ran out ~2-3 weeks prior -continue synthroid 50mcg daily, will repeat thyroid panel after 1-2 days on new regimen Dispo: Tele inpt, CIWA protocol, continuing to monitor Sodium lvls FEN: Heart-Healthy, 1L fluid restriction as per Nephro Access: Peripheral IV Consults: Nephro, Psych, Card Ppx: Pepcid for GI, SCDs for DVT Patient seen, reviewed, and discussed with Dr. Garcia. <Shania Garcia - Last Filed: 08/26/16 16:13> Objective - Vital Signs/Intake and Output Vital Signs (last 24 hours): Temp Pulse Resp BP Pulse Ox 98.2 F 80 19 114/60 97 08/26/16 12:00 08/26/16 12:00 08/26/16 12:00 08/26/16 12:00 08/26/16 06:00 Intake and Output: 08/26/16 08/26/16 06:59 18:59 Intake Total 740 Output Total 1700 Balance -960 - Medications Medications: Current Medications Digoxin (Lanoxin) 0.125 mg PO 1400 DAMIR Last Admin: 08/26/16 14:38 Dose: 0.125 mg Diphenhydramine HCl (Benadryl) 50 mg IVP Q4H PRN PRN Reason: Allergy symptoms Last Admin: 08/26/16 09:01 Dose: 50 mg Diphenhydramine HCl (Benadryl Maximum Strength 1%) 1 ea TOP Q6H PRN PRN Reason: Itching / Pruritus Last Admin: 08/24/16 22:39 Dose: 1 ea Famotidine (Pepcid) 40 mg PO HS DAMIR Last Admin: 08/25/16 23:34 Dose: 40 mg Folic Acid (Folic Acid) 1 mg PO DAILY DAMIR Last Admin: 08/26/16 09:39 Dose: 1 mg Levothyroxine Sodium (Synthroid) 50 mcg PO ACB DAMIR Last Admin: 08/26/16 08:58 Dose: 50 mcg Lisinopril (Zestril) 2.5 mg PO DAILY [facility] Last Admin: 08/26/16 09:39 Dose: 2.5 mg Lorazepam (Ativan) 1 mg PO Q3H PRN; Protocol PRN Reason: Anxiety Lorazepam (Ativan) 1 mg PO Q6 DAMIR PRN Reason: Protocol Metoprolol Tartrate (Lopressor) 50 mg PO BID [facility] Last Admin: 08/26/16 09:40 Dose: 50 mg Ondansetron HCl (Zofran Inj) 8 mg IVP Q6H PRN PRN Reason: Nausea/Vomiting Last Admin: 08/25/16 19:03 Dose: 8 mg Oxycodone HCl (Oxycodone Immediate Release Tab) 5 mg PO Q8H PRN PRN Reason: Pain, severe (8-10) Last Admin: 08/26/16 08:55 Dose: 5 mg Thiamine HCl (Vitamin B1 Tab) 100 mg PO DAILY [facility] Last Admin: 08/26/16 09:39 Dose: 100 mg Trazodone HCl (Desyrel) 50 mg PO HS PRN PRN Reason: Insomnia Last Admin: 08/26/16 02:53 Dose: 50 mg - Labs Labs: 08/26/16 05:30 08/26/16 13:45 PT 10.8 Seconds (9.9-11.8) 08/23/16 20:50 INR 1.00 (0.93-1.08) 08/23/16 20:50 APTT 33.4 Seconds (23.7-30.8) H 08/23/16 20:50 Attending/Attestation - Attestation I have personally seen and examined this patient.: Yes I have fully participated in the care of the patient.: Yes I have reviewed all pertinent clinical information, including history, physical exam and plan: Yes Notes (Text): 08/26/16 16:06 50 year old male with past medical history of paroxysmal afib, tachy-viki syndrome s/p pacemaker, cardiomyopathy, hypertension and chronic ETOH abuse who presented with complaint of chest pain and palpitations. Serial cardiac enzymes were negative and ACS has been ruled out. Cardiology is following. He is on metoprolol for paroxysmal afib. He is not a candidate for anticoagulation due to noncompliance and chronic ETOH abuse. On admission he was also found to have significant hyponatremia. This has improved and nephrology is following. He is on banana bag and ativan damir/prn for withdrawal symptoms. Will begin to taper. He was counselled on alcohol abstinence. Psychiatry and SW evaluation were appreciated. Elevated TSH noted at 9.2, likely secondary to noncompliance with his synthroid. Synthroid is increased to 50 mcg. Pancytopenia and elevated LFTs likely secondary to chronic ETOH abuse. Will continue to monitor. Overall prognosis is guarded due to history of noncompliance and continuous ETOH abuse. Shania Garcia MD Hospitalist.
[2016-08-26] MEDS ORDERED: Digoxin 500 mcg/2ml (0.5 mg/2ml) Inj IVP ONE ×2 (17:17→21:00)
--- NOTE | 2016-08-26 18:48 | PN ---
DATE: 08/26/2016 REASON FOR CONSULTATION AND FOLLOWUP: Nonischemic cardiomyopathy, paroxysmal atrial fibrillation, al cohol abuse, tachycardia, status post permanent pacemaker, sick sinus syndrome. BRIEF CLINICAL HISTORY: The patient denies any chest pain, shortness of breath, any palpitation. PHYSICAL EXAMINATION: VITAL SIGNS: Temperature afebrile, heart rate 80, blood pressure 114/60. HEENT: PERRLA. Extraocular muscles intact. NECK: Supple. No carotid bruits. No thyromegaly. CHEST: Clear to auscultation. HEART: S1, S2 regular. ABDOMEN: Soft. EXTREMITIES: Clubbing and cyanosis negative. BLOOD WORKUP: WBC 2.8, hemoglobin 12.2, hematocrit 36, platelet count 113. Chemistry shows sodium 1 29, potassium 4.6, chloride 98, carbon dioxide 25, anion gap of 11, BUN 15, creatinine 0.8. IMPRESSION: Hyponatremia, paroxysmal atrial fibrillation, sick sinus syndrome, permanent pacemaker, atrial fibrillation, alcohol abuse, nonischemic cardiomyopathy, ejection fraction 30%-35%, 4-chamber dilatation by echo dated 05/2015, status post permanent pacemaker in 04/2006, a [employer], history of cardiac catheterization in the past, recent, history of alcohol abuse, multiple admissions for alcoho l abuse now rate is well controlled. Not a candidate for long-term anticoagulation. RECOMMENDATION: Since the patient is not a candidate for long-term anticoagulation because of multip le admissions for alcohol toxicity, continue metoprolol 50 mg daily. Rate is well controlled. Discon tinue telemetry. Continue lisinopril. Monitor electrolytes. The patient was given 3% saline. Sodi um is coming up. We will discontinue telemetry. No further cardiac workup is planned at this time. Thank you, Dr. Garcia, for providing the opportunity in taking care of the patient. Tere Albrecht MD cc: [id number] TT: 08/26/2016 18:47:41 Confirmation # [id number] Dictation # [id number] ludy
[2016-08-27] MEDS: DiphenhydrAMINE 50 mg/ml Inj IVP PRN (08:07)
[2016-08-27] MEDS: Levothyroxine 50 MCG TAB PO SCH (08:09)
[2016-08-27] MEDS: oxyCODONE 5 mg Immediate Release Tab PO PRN (08:15)
[2016-08-27 08:42] LABS: ADD MANUAL DIFF? NO
[2016-08-27 08:44] LABS: BASO # 0.02 K/mm3 (0.0-2.0); BASO % 0.5 % (0.0-3.0); EOS # 0.1 (0.0-0.7); EOS % 1.2 % (1.5-5.0); GRAN # 2.29 (1.4-6.5); GRAN % 56.7 % (50.0-68.0); HEMATOCRIT 36.7 % (42.0-52.0); LYMPH # 1.2 (1.2-3.4); LYMPH % 29.2 % (22.0-35.0); MEAN CELL VOLUME 87.2 fL (80.0-105.0); MEAN CORPUSCULAR HEMOGLOBIN 29.5 pg (25.0-35.0); MEAN CORPUSCULAR HGB CONC 33.8 g/dl (31.0-37.0); MEAN PLATELET VOLUME 9.3 fl (7.0-11.0); MONO # 0.5 (0.1-0.6); MONO % 12.4 % (1.0-6.0); PLATELET COUNT 120 10^3/uL (120.0-450.0); RED CELL DISTRIBUTION WIDTH 13.9 % (11.5-14.5)
[2016-08-27 09:05] LABS: ALB/GLOB RATIO 1.1 (1.1-1.8); ALKALINE PHOSPHATASE 161 U/L (38-133); ALT/SGPT 180 U/L (7-56); AST/SGOT 250 U/L (15-59); BILIRUBIN,TOTAL 3.3 mg/dL (0.2-1.3); BLOOD UREA NITROGEN 15 mg/dL (7-21); CALCIUM 9.6 mg/dL (8.4-10.5); CARBON DIOXIDE 24 mmol/L (21-33); CHLORIDE 96 mmol/L (95-110); GFR AFRICAN-AMERICAN > 60; GLUCOSE,RANDOM 96 mg/dL (70-110); MAGNESIUM 1.7 mg/dL (1.7-2.2); PHOSPHOROUS 4.3 mg/dL (2.5-4.5); POTASSIUM 4.5 mmol/L (3.6-5.0); SODIUM 129 mmol/L (132-148); TOTAL PROTEIN 8.4 g/dL (5.8-8.3)
--- NOTE | 2016-08-27 10:45 | CARD ---
APPROVED REPORT EKG Measurement Heart [id number] <Conclusion> Atrial fibrillation ST & T wave abnormality, consider anterolateral ischemia IVCD No change
[2016-08-27] MEDS: Digoxin 125 mcg (0.125 mg) Tab PO SCH (14:00)
[2016-08-27 14:01] VITALS: PULSE 84
[2016-08-27 16:30] VITALS: BP 113/70
[2016-08-27 16:53] VITALS: PULSE 52; RESP 18; TEMP 97.9; O2SAT 99
--- NOTE | 2016-08-27 19:38 | CP.PCM.PN ---
Subjective - Date & Time of Evaluation Date of Evaluation: 08/27/16 Time of Evaluation: 14:00 - Subjective Subjective: Patient reports feeling well; urinating frequently; Objective - Vital Signs/Intake and Output Vital Signs (last 24 hours): Temp Pulse Resp BP Pulse Ox 97.9 F 52 L 18 113/70 99 08/27/16 09:20 08/27/16 09:20 08/27/16 09:20 08/27/16 09:30 08/27/16 09:20 Intake and Output: 08/27/16 08/28/16 18:59 06:59 Intake Total 240 Balance 240 - Labs Labs: 08/27/16 08:39 08/27/16 08:39 PT 10.8 Seconds (9.9-11.8) 08/23/16 20:50 INR 1.00 (0.93-1.08) 08/23/16 20:50 APTT 33.4 Seconds (23.7-30.8) H 08/23/16 20:50 - Constitutional Appears: Well, No Acute Distress - Head Exam Head Exam: NORMAL INSPECTION - Eye Exam Eye Exam: Normal appearance. absent: Scleral icterus - ENT Exam ENT Exam: Mucous Membranes Moist - Respiratory Exam Respiratory Exam: Clear to Ausculation Bilateral, NORMAL BREATHING PATTERN - Cardiovascular Exam Cardiovascular Exam: RRR, +S1, +S2 - GI/Abdominal Exam GI & Abdominal Exam: Soft. absent: Distended, Tenderness - Extremities Exam Extremities Exam: Normal Capillary Refill Additional comments: no leg edema; - Neurological Exam Neurological Exam: Alert, Awake - Psychiatric Exam Psychiatric exam: Normal Affect, Normal Mood - Skin Skin Exam: Warm. absent: Cyanosis Assessment and Plan (1) Hyponatremia Assessment & Plan: Resolving; however, U osm inappropriately very high; needs to be compliant with fluid restriction including beer restriction and counseled extensively in this regard; will f/u as outpatient; Status: Acute (2) HTN (hypertension) Assessment & Plan: Relatively controlled; continue current meds (metoprolol 50 mg bid and lisinopril 2.5 mg daily); Status: Acute (3) Alcohol abuse Assessment & Plan: Excessive amount of daily beer intake; amounts to 8.5L of beer per day in addition to another few liters of water intake, may be enough to overhwelm kidney's ability to excrete free water adequately; if our assessment is accurate , then tolvaptan will not help in this regard as Uosm is already low in this situation; will f/u as outpatient; Status: Acute
--- NOTE | 2016-08-28 08:30 | CP.PCM.PCO ---
Physician Communication Note - Physician Communication Note Physician Communication Note: pt was d/c
--- NOTE | 2016-08-28 10:04 | CP.PCM.PN ---
Subjective - Date & Time of Evaluation Date of Evaluation: 08/26/16 Time of Evaluation: 10:00 - Subjective Subjective: Patient reports feeling well; urinating well; Objective - Vital Signs/Intake and Output Vital Signs (last 24 hours): Temp Pulse Resp BP Pulse Ox 97.9 F 52 L 18 113/70 99 08/27/16 09:20 08/27/16 09:20 08/27/16 09:20 08/27/16 09:30 08/27/16 09:20 - Labs Labs: 08/27/16 08:39 08/27/16 08:39 PT 10.8 Seconds (9.9-11.8) 08/23/16 20:50 INR 1.00 (0.93-1.08) 08/23/16 20:50 APTT 33.4 Seconds (23.7-30.8) H 08/23/16 20:50 - Constitutional Appears: Well, No Acute Distress - Head Exam Head Exam: NORMOCEPHALIC - Eye Exam Eye Exam: Normal appearance. absent: Scleral icterus - ENT Exam ENT Exam: Mucous Membranes Moist - Respiratory Exam Respiratory Exam: Clear to Ausculation Bilateral, NORMAL BREATHING PATTERN - Cardiovascular Exam Cardiovascular Exam: RRR, +S1, +S2 - GI/Abdominal Exam GI & Abdominal Exam: Soft. absent: Distended, Tenderness - Extremities Exam Additional comments: no leg edema; - Neurological Exam Neurological Exam: Alert, Awake - Psychiatric Exam Psychiatric exam: Normal Affect, Normal Mood - Skin Skin Exam: Normal Color, Warm. absent: Cyanosis Assessment and Plan (1) Hyponatremia Assessment & Plan: Again with somewhat rapid overcorrection of hyponatremia with relatively low Uosm; again giving desmopressin 2 mcg along with D5W at 250 cc/hr x 4hrs; Status: Acute (2) HTN (hypertension) Assessment & Plan: Relatively controlled, continue current meds; Status: Acute (3) Alcohol abuse Assessment & Plan: Patient counseled in this regard as he drinks excessive amounts of beer daily; Status: Acute
== END 2016-08-27 16:34 | disposition home or self-care (01) | DRG 566 ==
LOC: ED 20:40 → ERH 22:18 → 2RSO 08-24 01:41 → 5RNO 08-26 23:14
PROVIDERS: ADMIT Hospitalist; ATTEND Internal Medicine
DX: E87.1 Hypo-osmolality and hyponatremia (principal); I50.22 Chronic systolic (congestive) heart failure; I11.0 Hypertensive heart disease with heart failure; D61.818 Other pancytopenia; I42.9 Cardiomyopathy, unspecified; F10.239 Alcohol dependence with withdrawal, unspecified; I49.5 Sick sinus syndrome; I48.0 Paroxysmal atrial fibrillation; M54.30 Sciatica, unspecified side; E03.9 Hypothyroidism, unspecified; F32.9 Major depressive disorder, single episode, unspecified; Y90.7 Blood alcohol level of 200-239 mg/100 ml; Z95.0 Presence of cardiac pacemaker; Z87.11 Personal history of peptic ulcer disease; Z98.84 Bariatric surgery status; Z91.19 Patient's noncompliance with other medical treatment and regimen

== ENCOUNTER 2016-10-18 18:35 | Inpatient (IN) | payer MEDICAID ==
[2016-10-18 18:37] VITALS: BMI 34.8
--- NOTE | 2016-10-18 19:48 | ED PDOC ---
Arrival/HPI - General Historian: Patient - History of Present Illness Time/Duration: Prior to Arrival Quality: Other Context: Home - General Chief Complaint: Trauma Time Seen by Provider: 10/18/16 18:57 - History of Present Illness Narrative History of Present Illness (Text): 10/18/16 19:45 A 51 year old male with a history of paroxysmal AFib, tachy-viki syndrome s/p pacer, hypertension, cardiomyopathy, alcohol abuse, peptic ulcer disease, presents to the emergency department complaining of left sided facial trauma after mechanical fall today. Patient admits to drinking alcohol. He reports while stepping out of the shower he slipped falling on the left sided of his face sustaining 2 lacerations. Patient notes a mild headache but denies any other injuries, loss of consciousness, dizziness, vision changes, nausea, vomiting, neck pain, back pain or any other complaints. Patients tetanus shot is up to date. PMD: Dr. Arellano (Liz Guardado PA-C) Past Medical History - Provider Review Nursing Documentation Reviewed: Yes - Past History Past History: No Previous (hx of afib, svt) - Infectious Disease Hx of Infectious Diseases: None - Tetanus Immunization Tetanus Immunization: Unknown - Cardiac Hx Cardiac Disorders: Yes Hx Cardiac Arrhythmia: Yes (svt palpitations a fib) Hx Pacemaker: Yes Hx Peripheral Edema: Yes Other/Comment: truncus arteriosis congenital heart disease, sick sinus syndrome , malfunction of heart rhythm, cardiomyopathy - Pulmonary Hx Chronic Obstructive Pulmonary Disease (COPD): No - Neurological HX Cerebrovascular Accident: No Hx Dizziness: Yes Hx Seizures: (pt denies) - HEENT Hx HEENT Disorder: Yes (eyeglasses) Hx Blind: No Hx Cataracts: No Hx Deafness: No Hx Difficulty Chewing: No Hx Epistaxis: No Hx Glaucoma: No Hx Macular Degeneration: No Other/Comment: 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 related noise exposure - Renal Hx Renal Failure: No - Endocrine/Metabolic Hx Diabetes Mellitus Type 1: No Hx Diabetes Mellitus Type 2: No Hx Hypothyroidism: No - Hematological/Oncological Hx AIDS: No Hx Anemia: No Hx Cancer: No Hx Chemotherapy: No Hx Cirrhosis: No Hx Hemophilia: No Hx Hepatitis A: No Hx Hepatitis B: No Hx Hepatitis C: No Hx Metastasis: No Hx Shingles: No Hx Sickle Cell Disease: No Hx Unexplained Bleeding: No - Integumentary Hx Dermatological Disorder: No Hx Basal Cell Carcinoma: No Hx Eczema: No Hx Melanoma: No Hx Psoriasis: No Hx Squamous Cell Carcinoma: No Other/Comment: tatoos, bruise to left abd and rib area - Musculoskeletal/Rheumatological Hx Falls: Yes (fell in bathroom last night at home) - Gastrointestinal Hx Gastrointestinal Disorders: Yes Hx Colostomy: No Hx Crohn's Disease: No Hx Diverticulitis: No Hx Gall Bladder Disease: No Hx Gastroesophageal Reflux: Yes Hx Ileostomy: No Hx Liver Failure: No Hx Pancreatitis: No HX Swallowing Problems: No Other/Comment: perforated ulcer X2, had sx twice, rectal bleeding due to perforations - Genitourinary/Gynecological Hx Hematuria: No Hx Incontinence: No Hx Prostate Problems: No Hx Sexually Transmitted Diseases: No Hx Urinary Tract Infection: No - Psychiatric Hx Psychophysiologic Disorder: Yes (ETOH abuse drinks 1/2 to 1 case beer per day ) Hx Anxiety: No Hx Bipolar Disorder: No Hx Depression: No Hx Hallucinations: No Hx Panic Disorder: No Hx Post Traumatic Stress Disorder: No Hx Psychosis: No Hx Schizophrenia: No Hx Sexual Abuse: No Hx Substance Use: (pt denies) Other/Comment: ETOH, drinks 1 case of beer a day, smokes a cigar "twice a year" , denies substance use - Surgical History Hx Amputation: No Hx Appendectomy: No Hx Cardiac Catheterization: No Hx Cholecystectomy: No Hx Coronary Stent: No Hx Gastric Bypass Surgery: Yes (around 10 yrs ago used to weigh 360 lbs) Hx Hysterectomy: No Hx Joint Replacement: No Hx Kidney Transplant: No Hx Liver Transplant: No Hx Mastectomy: No Hx Musculoskeletal Surgery: No Hx Open Heart Surgery: No Hx Orthopedic Surgery: No Hx Splenectomy: No Hx Valve Replacement: No - Anesthesia Hx Anesthesia: Yes Hx Anesthesia Reactions: No Hx Malignant Hyperthermia: No - Suicidal Assessment Feels Threatened In Home Enviroment: No Family/Social History - Physician Review Nursing Documentation Reviewed: Yes Family/Social History: No Known Family HX Smoking Status: Never Smoked Hx Alcohol Use: Yes (1 case beer daily) Amount per day: 6 Hx Substance Use: (pt denies) Hx Substance Use Treatment: No Allergies/Home Meds Allergies/Adverse Reactions: Allergies oxycodone Adverse Reaction (Verified 10/18/16 18:52) ITCHING Review of Systems - Physician Review All systems were reviewed & negative as marked: Yes - Review of Systems Eyes: absent: Vision Changes Gastrointestinal: absent: Nausea, Vomiting Musculoskeletal: absent: Back Pain, Neck Pain Skin: Laceration (to left side of face) Neurological: Headache. absent: Dizziness Physical Exam Vital Signs Reviewed: Yes Temperature: Afebrile Blood Pressure: Hypotensive Pulse: Regular Respiratory Rate: Normal Appearance: Positive for: Well-Appearing, Non-Toxic, Comfortable Pain Distress: None Mental Status: Positive for: Alert and Oriented X 3 - Systems Exam Head: Present: Laceration (1 cm laceration to left methodist, 3 cm laceration to middle of eyebrows) Pupils: Present: PERRL Extroacular Muscles: Present: EOMI Conjunctiva: Present: Normal Mouth: Present: Moist Mucous Membranes Neck: Present: Normal Range of Motion Respiratory/Chest: Present: Clear to Auscultation, Good Air Exchange. No: Respiratory Distress, Accessory Muscle Use Cardiovascular: Present: Regular Rate and Rhythm, Normal S1, S2. No: Murmurs Abdomen: Present: Normal Bowel Sounds. No: Tenderness, Distention, Peritoneal Signs Back: Present: Normal Inspection Upper Extremity: Present: Normal Inspection. No: Cyanosis, Edema Lower Extremity: Present: Normal Inspection. No: Edema Neurological: Present: GCS=15, CN II-XII Intact, Speech Normal Skin: Present: Warm, Dry, Normal Color. No: Rashes Psychiatric: Present: Alert, Oriented x 3, Normal Insight, Normal Concentration Medical Decision Making ED Course and Treatment: 10/18/16 19:45 Impression: A 51 year old male with lacerations to left side of face after mechanical fall. Patient admits to drinking alcohol today. Differential Diagnosis included but are not limited to: Plan: -- Head CT -- Maxillofacial CT -- Tylenol -- Pt placed in ED observation (Liz Guardado PA-C) - RAD Interpretation Narrative RAD Interpretations (Text): 10/19/16 01:44 CT HEAD w/o contrast : FINDINGS: Brain: There is prominence of the ventricles and sulci, compatible with atrophy. Within the left posterior frontal subcortical white matter on series 4 image 21, there is a small nonspecific hypodense focus of white matter disease. Differential considerations include small vessel ischemic disease or demyelination. The white-sal differentiation is preserved demonstrating no acute territorial type infarct. No acute intracranial hemorrhage is seen. Midline shift: There is no midline shift. Ventricles: See above. Bones/joints: The calvarium demonstrates no evidence for a depressed fracture. For discussion of findings involving the facial bones and paranasal sinuses, refer to the facial CT from the same day. Soft tissues: There is mild soft tissue swelling/hematoma of the left side of the scalp. There is soft tissue swelling of the left frontal scalp and periorbital region. Sinuses: See above. Mastoid air cells: No mastoid effusion. IMPRESSION: 1. There is mild soft tissue swelling/hematoma of the left side of the scalp. There is soft tissue swelling of the left frontal scalp and periorbital region. 2. No acute intracranial hemorrhage or acute territorial type infarct. 3. Atrophy. 4. Within the left posterior frontal subcortical white matter on series 4 image 21, there is a small nonspecific hypodense focus of white matter disease. Differential considerations include small vessel ischemic disease or demyelination. This can be further evaluated with MRI. Dictated and Authenticated by: Levi Garcia MD 10/18/2016 9:15 PM Eastern Time ([place] & [place]) CT Maxillofacial w/o contrast : FINDINGS: Bones/joints: There is angulation of the right nasal bone, with fracture of the left anterior nasal bone. The acuity of this finding is indeterminate. Motion artifact limits evaluation of the mandible, without a displacing fracture. The remaining facial bones are intact. Soft tissues: There is left periorbital soft tissue swelling, which extends to the left frontal scalp. Orbits: No acute intraorbital abnormality. Sinuses: A mucous retention cyst or polyp is visualized within the right maxillary sinus. IMPRESSION: 1. There is angulation of the right nasal bone, with fracture of the left anterior nasal bone. The acuity of this finding is indeterminate. Clinical correlation is recommended. 2. There is left periorbital soft tissue swelling, which extends to the left frontal scalp. 3. Paranasal sinus disease is noted above. Dictated and Authenticated by: Levi Garcia MD 10/18/2016 9:09 PM Eastern Time ([place] & [place] (Liz Guardado PA-C) Radiology Orders: 10/18/16 19:11 HEAD W/O CONTRAST [CT] Stat MAXILLOFACIAL W/O CONTRAST [CT] Stat - Medication Orders Current Medication Orders: diltiaZEM IVPB 100mg in NS (Cardizem 100mg In Ns) 100 mls @ 5 mls/hr IV .Q20H PRN; Protocol; 5 MG/HR PRN Reason: TITRATE PER MD ORDER Last Admin: 10/19/16 02:42 Dose: 5 mg/hr, 5 mls/hr Discontinued Medications Acetaminophen (Tylenol 325mg Tab) 975 mg PO STAT STA Stop: 10/18/16 19:12 Last Admin: 10/18/16 20:12 Dose: 975 mg Diltiazem HCl (Cardizem) 20 mg IVP ONCE ONE Stop: 10/19/16 00:48 Last Admin: 10/19/16 01:51 Dose: 10 mg Lidocaine HCl (Lidocaine 1% (20ml)) Confirm Administered Dose 20 ml .ROUTE .STK- MED ONE Stop: 10/18/16 21:46 Lorazepam (Ativan) 1 mg IM ONCE ONE PRN Reason: Protocol Stop: 10/19/16 01:32 Last Admin: 10/19/16 02:18 Dose: 1 mg Oxycodone/Acetaminophen (Percocet 5/325 Mg Tab) 1 tab PO STAT STA Stop: 10/19/16 02:09 Last Admin: 10/19/16 02:19 Dose: 1 tab ED OBSERVATION Date of observation admission: 10/18/16 Time of observation admission: 19:11 - Observation admission statement Patient is being placed in observation because:: Patient needs CT head and maxillofacial and needs laceration repair. (Liz Claros) - Goals of Observation Goals of observation are:: Monitor signs and symptoms and response to treatment. (Liz Guardado PA-C) - Progress Note Progress Note: Progress Notes: Patient returned to CT without any incident. Patient is laying in bed comfortably in no acute distress, has no other complaints at this time. Vital signs blood pressure 141/70 pulse 72 respiration 16 O2 saturation 97% on room air. CT results reviewed and discussed the patient in great detail. CT of the head shows no acute findings, CT maxillofacial shows nasal bone fracture of indeterminate age. Patient states that he had fractured his nose in the past. The wound is forehead and L methodist. The wound was copiously irrigated with normal saline. The wound was prepped and draped in the normal sterile fashion. The wound was explored for foreign bodies and none were found. The wound was anesthetised using lidocaine. The edges were reapproximated using 7 6-0 prolene sutures by LEANNE. Bleeding was well controlled, clean dressing applied and the patient tolerated the procedure well. On reevaluation, patient means awake, alert, oriented 3 with a normal neurologic exam. Patient states that while he was moving during the laceration repair he started getting pain to the left lower lateral ribs, he is afraid that he may have fractured a rib. Denies any dyspnea, shortness of breath, abdominal pain. On exam, lungs are clear to auscultation, +mild TTP to the L lower lateral ribs, no ecchymosis, cardiac regular rate and rhythm, abdomen soft and nontender. XR L ribs ordered. Vital signs blood pressure 118/76 pulse 90 respirations 16 O2 saturation 94% on room air. 10/19/16 00:12 XR L ribs: +fracture of the 6th rib, no pneumothorax, +old fracture of the 8th, 9th and 10th ribs, as read by LEANNE. X-ray of the left ribs discussed with the patient in great detail. Now the patient states that he feels that his heart rate is elevated and that he may be in A. fib. Patient states that he does have a history of paroxysmal A. fib which she takes metoprolol for 50 grams twice a day, however he states that he ran out of his medication and the last dose taken was yesterday morning. Otherwise he denies any chest pain, shortness of breath at this time. monitoring and evaluation advisor shows A. fib with heart rate varying at [address] way to 160. EKG ordered stat. 10/19/16 00:45 EKG: A. fib at 114 bpm, normal axis, (+) T wave inversion in leads V3-V6, which are not new findings and are seen in prior EKG on 08/27/16, as read by LEANNE. Labs ordered. Cardizem 20 mg IV push, and Cardizem drip ordered. Considering patient's current status, plan will be for inpt admission. (Geo MARTÍNEZ,Liz Hammond) - PA / UTILIZATION REVIEW SPECIALIST / Resident Statement MD/DO has reviewed & agrees with the documentation as recorded. - Scribe Statement The provider has reviewed the documentation as recorded by the Scribe - Scribe Statement Talisha Serna Provider Scribe Attestation: All medical record entries made by the Scribe were at my direction and personally dictated by me. I have reviewed the chart and agree that the record accurately reflects my personal performance of the history, physical exam, medical decision making, and the department course for this patient. I have also personally directed, reviewed, and agree with the discharge instructions and disposition. (Geo MARTÍNEZ,Liz Hammond) Disposition/Present on Arrival - Present on Arrival Any Indicators Present on Arrival: No History of DVT/PE: No History of Uncontrolled Diabetes: No Urinary Catheter: No History of Decub. Ulcer: No History Surgical Site Infection Following: None - Disposition Have Diagnosis and Disposition been Completed?: Yes Disposition Time: 19:11 (Pt placed in ED observation) Patient Plan: Admission - Disposition Diagnosis: Head injury, Facial laceration, Rib fracture, Alcohol abuse, A-fib Disposition: HOSPITALIZED Condition: STABLE
--- NOTE | 2016-10-18 21:10 | CT ---
EXAM: CT Maxillofacial Without Intravenous Contrast CLINICAL HISTORY: The patient age is 51 years old and is male; Injury or trauma; Fall; Initial encounter; Concussion /head injury; Loss of consciousness not known Facility exam id and description: Ct faces maxillofacial w/o contrast TECHNIQUE: Axial computed tomography images of the face without intravenous contrast. This CT exam was performed using one or more of the following dose reduction techniques: automated exposure control, adjustment of the mA and/or kV according to patient size, and/or use of iterative reconstruction technique. Coronal and sagittal reformatted images were created and reviewed. EXAM DATE/TIME: 10/18/2016 7:11 PM COMPARISON: No relevant prior studies available. FINDINGS: Bones/joints: There is angulation of the right nasal bone, with fracture of the left anterior nasal bone. The acuity of this finding is indeterminate. Motion artifact limits evaluation of the mandible, without a displacing fracture. The remaining facial bones are intact. Soft tissues: There is left periorbital soft tissue swelling, which extends to the left frontal scalp. Orbits: No acute intraorbital abnormality. Sinuses: A mucous retention cyst or polyp is visualized within the right maxillary sinus. IMPRESSION: 1. There is angulation of the right nasal bone, with fracture of the left anterior nasal bone. The acuity of this finding is indeterminate. Clinical correlation is recommended. 2. There is left periorbital soft tissue swelling, which extends to the left frontal scalp. 3. Paranasal sinus disease is noted above.
--- NOTE | 2016-10-18 21:15 | CT ---
EXAM: CT Head Without Intravenous Contrast CLINICAL HISTORY: The patient age is 51 years old and is male; Injury or trauma; Fall; Initial encounter; Concussion / head injury Facility exam id and description: Ct heads head w/o contrast TECHNIQUE: Axial computed tomography images of the head/brain without intravenous contrast. This CT exam was performed using one or more of the following dose reduction techniques: automated exposure control, adjustment of the mA and/or kV according to patient size, and/or use of iterative reconstruction technique. EXAM DATE/TIME: 10/18/2016 7:11 PM COMPARISON: No relevant prior studies available. FINDINGS: Brain: There is prominence of the ventricles and sulci, compatible with atrophy. Within the left posterior frontal subcortical white matter on series 4 image 21, there is a small nonspecific hypodense focus of white matter disease. Differential considerations include small vessel ischemic disease or demyelination. The white-sal differentiation is preserved demonstrating no acute territorial type infarct. No acute intracranial hemorrhage is seen. Midline shift: There is no midline shift. Ventricles: See above. Bones/joints: The calvarium demonstrates no evidence for a depressed fracture. For discussion of findings involving the facial bones and paranasal sinuses, refer to the facial CT from the same day. Soft tissues: There is mild soft tissue swelling/hematoma of the left side of the scalp. There is soft tissue swelling of the left frontal scalp and periorbital region. Sinuses: See above. Mastoid air cells: No mastoid effusion. IMPRESSION: 1. There is mild soft tissue swelling/hematoma of the left side of the scalp. There is soft tissue swelling of the left frontal scalp and periorbital region. 2. No acute intracranial hemorrhage or acute territorial type infarct. 3. Atrophy. 4. Within the left posterior frontal subcortical white matter on series 4 image 21, there is a small nonspecific hypodense focus of white matter disease. Differential considerations include small vessel ischemic disease or demyelination. This can be further evaluated with MRI.
[2016-10-18] MEDS ORDERED: Lidocaine 1% Inj (20ml) ONE (21:45)
[2016-10-19] MEDS ORDERED: diltiaZEM IVPB 100mg in NS 100 ML IV PRN (00:48)
[2016-10-19 01:57] LABS: BASO # 0.01 K/mm3 (0.0-2.0); BASO % 0.3 % (0.0-3.0); GRAN # 2.46 (1.4-6.5); GRAN % 62.7 % (50.0-68.0); HEMOGLOBIN 14.5 gm/dL (14.0-18.0); LYMPH % 26.3 % (22.0-35.0); MEAN CELL VOLUME 86.4 fL (80.0-105.0); MEAN CORPUSCULAR HEMOGLOBIN 31.3 pg (25.0-35.0); MEAN CORPUSCULAR HGB CONC 36.2 g/dl (31.0-37.0); MEAN PLATELET VOLUME 10.3 fl (7.0-11.0); MONO # 0.4 (0.1-0.6); MONO % 10.7 % (1.0-6.0); PLATELET COUNT 64 10^3/uL (120.0-450.0); RBC 4.64 10^6/uL (3.5-6.1); RED CELL DISTRIBUTION WIDTH 17.9 % (11.5-14.5); WHITE BLOOD COUNT 3.9 10^3/ul (4.5-11.0)
[2016-10-19 02:08] LABS: INR 1.04 (0.93-1.08); PARTIAL THROMBOPLASTIN TIME 28.9 Seconds (23.7-30.8); PROTHROMBIN TIME 11.2 Seconds (9.9-11.8)
[2016-10-19] MEDS ORDERED: Oxycodone/Acetaminophen 5/325 mg Tab PO STA (02:08)
[2016-10-19] MEDS ORDERED: Multivitamin (MVI) 10 ML, Thiamine 100 MG, Folic Acid 1 MG in Sodium Chloride 0.9% 1,00... IV ONE ×3 (03:02→11:06)
[2016-10-19 03:51] LABS: ALB/GLOB RATIO 1.1 (1.1-1.8); ALBUMIN 4.5 g/dL (3.0-4.8); ALT/SGPT 111 U/L (7-56); AST/SGOT 251 U/L (15-59); BLOOD UREA NITROGEN 6 mg/dL (7-21); CALCIUM 9.5 mg/dL (8.4-10.5); GFR AFRICAN-AMERICAN > 60; GFR NON-AFRICAN AMERICAN > 60; LIPASE 506 U/L (23-300)
[2016-10-19] MEDS ORDERED: Morphine 4 mg/ml ISec IVP PRN (03:58)
[2016-10-19 04:03] LABS: TROPONIN I < 0.01 ng/mL
--- NOTE | 2016-10-19 04:29 | CP.PCM.HP ---
<AMRIT CARLIN - Last Filed: 10/19/16 04:13> History of Present Illness - History of Present Illness History of Present Illness: CC: Mechanical Fall/Atrial Fibrillation with Rapid Ventricular Response HPI: Mr. Ybarra is a 51 year old male with a past medical history of paroxysmal AFib, tachy-viki syndrome s/p pacer, HTN, cardiomyopathy, alcohol abuse, and PUD, who presented to the ED complaining of left sided facial trauma after mechanical fall today. He states that he has tile floors at home and as he was getting out of the shower, he slipped, fell and hit his head on the floor. He denies visual changes, LOC, vertigo or instability prior to or after the fall but does admit to drinking "his average" daily amount of alcohol. Patient states that he also hasn't had a headache since his fall but does have pain from the lacerations he received. In the ED, a CT head showed a hematoma to the L scalp and L periorbital swelling but no intracranial bleed. A CT MF showed angulation of R nasal bone and an age indeterminant fracture of L anterior nasal bone, but patient notes this fracture to be sustained previously. An Xray of his ribs showed an acute fracture of the L 6th rib and old fractures to L ribs 8, 9 and 10. An EKG showed patient to be in atrial fibrillation with rapid ventricular response and he was started on cardizem drip. Currently, patient complains of left sided rib pain and pain on the L side of his face and scalp. Patient denies headache, loss of consciousness, dizziness, vision changes, neck pain, back pain, shortness of breath, abdominal pain, N/V or diarrhea. PMH: paroxysmal AFib, Tachy-Viki syndrome s/p pacer, HTN, cardiomyopathy, Alcohol abuse, and PUD PSH: Gastric bypass with multiple complications afterwards; peptic ulcer repair Family Hx: Father-Liver Cancer; Lqnykx-Flt-Hwvechpsmpiv Social Hx: Denies chronic tobacco use and any illicit drug use; chronic alcohol abuse-drinks at least one 24-pack of Coors Lite per day Home Meds: Levothyoxine, Metoprolol PMD: Dr. Arellano Present on Admission - Present on Admission Any Indicators Present on Admission: No Review of Systems - Review of Systems Review of Systems: Please refer to HPI Past Patient History - Infectious Disease Hx of Infectious Diseases: None - Tetanus Immunizations Tetanus Immunization: Unknown - Past Medical History & Family History Past Medical History?: Yes - Past Social History Smoking Status: Never Smoked - CARDIAC Hx Cardiac Disorders: Yes Hx Cardia Arrhythmia: Yes (svt palpitations a fib) Hx Pacemaker: Yes Hx Peripheral Edema: Yes Other/Comment: truncus arteriosis congenital heart disease, sick sinus syndrome , malfunction of heart rhythm, cardiomyopathy - PULMONARY Hx Chronic Obstructive Pulmonary Disease (COPD): No - NEUROLOGICAL HX Cerebrovascular Accident: No Hx Dizziness: Yes Hx Seizures: (pt denies) - HEENT Hx HEENT Problems: Yes (eyeglasses) Hx Blind: No Hx Cataracts: No Hx Deafness: No Hx Difficulty Chewing: No Hx Epistaxis: No Hx Glaucoma: No Hx Macular Degeneration: No Other/Comment: 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 related noise exposure - RENAL Hx Renal Failure: No - ENDOCRINE/METABOLIC Hx Diabetes Mellitus Type 1: No Hx Diabetes Mellitus Type 2: No Hx Hypothyroidism: No - HEMATOLOGICAL/ONCOLOGICAL Hx AIDS: No Hx Anemia: No Hx Cancer: No Hx Chemotherapy: No Hx Cirrhosis: No Hx Hemophilia: No Hx Hepatitis A: No Hx Hepatitis B: No Hx Hepatitis C: No Hx Metastesis: No Hx Shingles: No Hx Sickle Cell Disease: No Hx Unexplained Bleeding: No - INTEGUMENTARY Hx Dermatological Problems: No Hx Basil Cell: No Hx Eczema: No Hx Melanoma: No Hx Psoriasis: No Hx Squamous Cell: No Other/Comment: tatoos, bruise to left abd and rib area - MUSCULOSKELETAL/RHEUMATOLOGICAL Hx Falls: Yes (fell in bathroom last night at home) - GASTROINTESTINAL Hx Gastrointestinal Disorders: Yes Hx Colostomy: No Hx Crohn's Disease: No Hx Diverticulitis: No Hx Gall Bladder Disease: No Hx Gastroesophageal Reflux: Yes Hx Ileostomy: No Hx Liver Failure: No Hx Pancreatitis: No HX Swallowing Problems: No Other/Comment: perforated ulcer X2, had sx twice, rectal bleeding due to perforations - GENITOURINARY/GYNECOLOGICAL Hx Hematuria: No Hx Incontinence: No Hx Prostate Problems: No Hx Sexually Transmitted Disorders: No Hx Urinary Tract Infection: No - PSYCHIATRIC Hx Psychophysiologic Disorder: Yes (ETOH abuse drinks 1/2 to 1 case beer per day ) Hx Anxiety: No Hx Bipolar Disorder: No Hx Depression: No Hx Hallucinations: No Hx Panic Symptoms: No Hx Post Traumatic Stress Disorder: No Hx Psychosis: No Hx Schizophrenia: No Hx Sexual Abuse: No Hx Substance Use: (pt denies) Other/Comment: ETOH, drinks 1 case of beer a day, smokes a cigar "twice a year" , denies substance use - SURGICAL HISTORY Hx Amputation: No Hx Appendectomy: No Hx Cardiac Catheterization: No Hx Cholecystectomy: No Hx Coronary Stent: No Hx Gastric Bypass Surgery: Yes (around 10 yrs ago used to weigh 360 lbs) Hx Hysterectomy: No Hx Joint Replacement: No Hx Kidney Transplant: No Hx Liver Transplant: No Hx Mastectomy: No Hx Musculoskeletal Surgery: No Hx Open Heart Surgery: No Hx Orthopedic Surgery: No Hx Splenectomy: No Hx Valve Replacement: No - ANESTHESIA Hx Anesthesia: Yes Hx Anesthesia Reactions: No Hx Malignant Hyperthermia: No Meds Allergies/Adverse Reactions: Allergies Allergy/AdvReac Type Severity Reaction Status Date / Time oxycodone AdvReac ITCHING Verified 10/18/16 18:52 Physical Exam - Constitutional Appears: No Acute Distress - Head Exam Additional comments: Lacerations, swelling and bruising to left scalp, nose and periorbital regions; wound dressings clean, dry and intact - Eye Exam Eye Exam: EOMI, Periorbital swelling, Periorbital tenderness. absent: Conjunctival injection, Scleral icterus - ENT Exam ENT Exam: Mucous Membranes Moist, Normal Exam - Neck Exam Neck exam: Positive for: Full Rom. Negative for: Meningismus, Tenderness - Respiratory Exam Respiratory Exam: Chest Wall Tenderness, Clear to Auscultation Bilateral, NORMAL BREATHING PATTERN. absent: Rales, Rhonchi, Wheezes, Respiratory Distress - Cardiovascular Exam Cardiovascular Exam: Tachycardia, Irregular Rhythm, +S1, +S2. absent: REGULAR RHYTHM, JVD, RRR - GI/Abdominal Exam GI & Abdominal Exam: Normal Bowel Sounds, Soft. absent: Distended, Firm, Guarding, Tenderness - Extremities Exam Extremities exam: Positive for: normal capillary refill, pedal pulses present. Negative for: calf tenderness, pedal edema - Back Exam Back exam: NORMAL INSPECTION. absent: CVA tenderness (L), CVA tenderness (R), paraspinal tenderness, tenderness, vertebral tenderness - Neurological Exam Neurological exam: Alert, Oriented x3 - Psychiatric Exam Psychiatric exam: Normal Affect, Normal Mood - Skin Skin Exam: Dry, Intact, Normal Color, Warm Additional comments: Noted to have dry and flaking skin on scalp Results - Vital Signs Recent Vital Signs: Last Vital Signs Temp 98.1 F 10/18/16 18:43 Pulse 95 H 10/19/16 02:42 Resp 16 10/18/16 22:00 BP 110/76 10/19/16 02:42 Pulse Ox 94 L 10/18/16 22:00 - Labs Result Diagrams: 10/19/16 01:25 10/19/16 03:15 Labs: Laboratory Results - last 24 hr 10/19/16 10/19/16 03:15 03:15 Sodium 131 L Potassium 4.2 Chloride 97 L Carbon Dioxide 17 L Anion Gap 21 H BUN 6 L Creatinine 0.6 Est GFR ( Amer) > 60 Est GFR (Non-Af Amer) > 60 Random Glucose 88 Calcium 9.5 Total Bilirubin 3.7 H AST 251 H ALT 111 H Alkaline Phosphatase 139 H Lactate Dehydrogenase 444 Total Creatine Kinase 178 Troponin I < 0.01 Total Protein 8.5 H Albumin 4.5 Globulin 4.1 Albumin/Globulin Ratio 1.1 Lipase 506 H Alcohol, Quantitative 145 H Assessment & Plan - Assessment and Plan (Free Text) Assessment: 51 year old male with a past medical history of paroxysmal AFib, tachy-viki syndrome s/p pacer, HTN, cardiomyopathy, alcohol abuse, and PUD, who presented to the ED complaining of left sided facial trauma after mechanical fall and found to be in A-fib with RVR Plan: 1. Mechanical Fall with sustained injuries as noted -CT head showed mild soft tissue swelling/hematoma of the left side of the scalp , soft tissue swelling of the left frontal scalp and periorbital region and no acute intracranial hemorrhage -CT MF showed angulation of the right nasal bone, with age indeterminant fracture of the left anterior nasal bone -Left RIb XRay showed fracture of the 6th rib, no pneumothorax, and old fracture of the 8th, 9th and 10th ribs -Pain control: Morphine 2mg q4h for moderate pain and Morphine 4mg q4h for severe pain -wound dressings as needed 2. Atrial Fibrillation with Rapid Ventricular Response -EKG showed A-fib at 114 bpm -Cardizem 20 mg IV push in ED -Cardizem drip at 5mls/hr -cont home lopressor 50mg BID -placed on telemetry monitoring -cardiology consulted, all recs appreciated 3. Alcohol Withdrawal -reports last drink to be on 10/18 at approx. 1900 -Ativan 2mg q4h PRN -Banana bag at 125mls/hr -Zofran PRN -Alcohol level, UDS, Mag/Phos, CMP pending -CIWA protocols q4h, seizure, fall and aspiration precautions 4. History of Hyponatremia -will monitor with CMP and adjust treatment accordingly 5. GI/DVT Prophylaxis -Protonix/scd's Patient seen and case discussed with attending, Dr. Silver. - Date & Time Date: 10/19/16 Time: 03:45 Decision To Admit - Pt Status Changed To: Hospital Disposition Of: Observation - . Bed Request Type: Telemetry <Miller Silver Q - Last Filed: 10/19/16 05:28> Results - Vital Signs Recent Vital Signs: Last Vital Signs Temp 98.1 F 10/19/16 04:30 Pulse 109 H 10/19/16 04:30 Resp 18 10/19/16 04:30 BP 121/87 10/19/16 04:30 Pulse Ox 94 L 10/18/16 22:00 - Labs Result Diagrams: 10/19/16 01:25 10/19/16 03:15 Labs: Laboratory Results - last 24 hr 10/19/16 10/19/16 03:15 03:15 Sodium 131 L Potassium 4.2 Chloride 97 L Carbon Dioxide 17 L Anion Gap 21 H BUN 6 L Creatinine 0.6 Est GFR ( Amer) > 60 Est GFR (Non-Af Amer) > 60 Random Glucose 88 Calcium 9.5 Total Bilirubin 3.7 H AST 251 H ALT 111 H Alkaline Phosphatase 139 H Lactate Dehydrogenase 444 Total Creatine Kinase 178 Troponin I < 0.01 Total Protein 8.5 H Albumin 4.5 Globulin 4.1 Albumin/Globulin Ratio 1.1 Lipase 506 H TSH 3rd Generation 5.73 H Alcohol, Quantitative 145 H Attending/Attestation - Attestation I have personally seen and examined this patient.: Yes I have fully participated in the care of the patient.: Yes I have reviewed all pertinent clinical information: Yes
--- NOTE | 2016-10-19 07:11 | RAD ---
PROCEDURE: Radiographs of the Chest and Left Ribs. HISTORY: trauma COMPARISON: None available. TECHNIQUE: Frontal radiograph of the chest and multiple oblique radiographs of the left ribs were obtained. FINDINGS: LEFT RIBS: Nondisplaced left rib fractures with healing callus formation ten, 9, 8,7 and probably 6 noted LUNGS: Clear. PLEURA: No pneumothorax or pleural fluid. CARDIOVASCULAR: Normal sized heart. No pulmonary vascular congestion. OTHER FINDINGS: Single lead pacemaker device. Epigastric and right lateral abdominal clips and sutures. Prominent bowel gas IMPRESSION: Nondisplaced left rib fractures with callus -subacute appearing
[2016-10-19] MEDS: Levothyroxine 25 MCG TAB PO SCH (08:01)
[2016-10-19] MEDS: Multivitamin With Minerals Tab PO SCH (09:16)
[2016-10-19] MEDS: Oxycodone/Acetaminophen 5/325 mg Tab PO PRN (12:07)
--- NOTE | 2016-10-19 15:37 | CT ---
PROCEDURE: CT Abdomen and Pelvis without intravenous contrast HISTORY: Evaluation of hematoma COMPARISON: 04/06/[address] chest abdomen and pelvis 04/01/2016 TECHNIQUE: Technique. Contrast Dose: No IV or oral contrast administered Radiation dose: Total exam DLP = 1046 mGy-cm. This CT exam was performed using one or more of the following dose reduction techniques: Automated exposure control, adjustment of the mA and/or kV according to patient size, and/or use of iterative reconstruction technique. FINDINGS: LOWER THORAX: Unremarkable. LIVER: Unremarkable. No gross lesion or ductal dilatation. GALLBLADDER AND BILE DUCTS: Distended gallbladder. No gallbladder wall thickening or pericholecystic fluid. No CT evidence of stones. No dilated ducts appreciated PANCREAS: Unremarkable. No gross lesion or ductal dilatation. SPLEEN: Splenic size is top normal ADRENALS: Unremarkable. No mass. KIDNEYS AND URETERS: No renal calculi. Left upper renal pole cyst approximately 1.5 cm. Additional smaller anterior lateral cyst probable. No hydronephrosis. Evaluation limited for mass without IV contrast. VASCULATURE: A few scattered atherosclerotic vascular calcifications are present. No aortic aneurysm. BOWEL: No obstruction. No gross mural thickening. APPENDIX: The appendix is not identified with certainty. The cecum appears higher than in the more typical right lower quadrant. No right pericecal inflammatory changes noted. An interval 1 cm calcification in close proximity with small and large bowel loops is noted. Its origin is unclear. A large appendicolith is not excluded. Other calcification or contiguous a calcified lymph node or ulna differential. Additional smaller calcifications are seen approximately 1 cm cephalad to it. Hyperdense material within bowel contents is not excluded. Clinical correlation with patient's symptomatology is recommended. No strandy inflammatory changes here are appreciated. The significance, if any is unknown. PERITONEUM: Unremarkable. No free fluid. No free air. LYMPH NODES: No enlarged lymph nodes. BLADDER: Bladder is moderately distended. No bladder calculi. No bladder wall thickening or intraluminal masses suggested REPRODUCTIVE: Unremarkable. BONES: Bilateral L5 pars interarticularis defects with a grade 1 anterior spondylolisthesis of L4 on L5 OTHER FINDINGS: Patient is status post gastric surgery. No gross hematomas here suggested. Hiatal hernia noted IMPRESSION: Gastric postsurgical changes. Nonvisualized appendix. A right-sided 1 cm calcification is noted - its origin appendix or extra appendiceal is not known No urolithiasis
--- NOTE | 2016-10-20 05:01 | CON ---
DATE: REASON FOR CONSULTATION: . HISTORY OF PRESENT ILLNESS: The patient is a 51-year-old male who has a history of chronic atrial fibrillation and history of permanent pacemaker placement, hypertension, cardiomyopathy, history of ETOH abuse. He was admitted because of a fall in the bathtub after taking a shower. The patient attributed his fall to slipping on a wet bathtub. He sustained facial bruising. The patient denies any history of seizures and the patient was not on any anticoagulation. The patient denies any history of heart attack in the past. The patient's alcohol level on admission was 145. SOCIAL HISTORY: The patient is ETOH abuser. MEDICATIONS: Ativan 2 mg as necessary q. 4 hours p.r.n., Fioricet 325 mg t.i.d., folic acid 1 mg once a day, Lopressor 50 mg once a day, morphine sulfate 2 mg as necessary q. 4 hours p.r.n. for pain, multivitamin infusion, Synthroid 25 mcg once a day, thiamine 100 mg once a day orally, Zestril 2.5 mg once a day. REVIEW OF SYSTEMS: No reports of tachycardia and no reports of seizures since admission. PHYSICAL EXAMINATION GENERAL: The patient is a middle-aged male who does not appear to be in acute distress. VITAL SIGNS: Blood pressure 118/81, heart rate 62, temperature 98.4, respirations 20. HEENT: Bilateral facial and periorbital ecchymosis. Dressing is applied to the patient's scalp. CHEST: Clear. HEART: S1, S2 regular. ABDOMEN: Soft. EXTREMITIES: No pedal edema. LABORATORY DATA: Hemoglobin and hematocrit 14.5 and 40.1, white count and platelet count are 3.9 and 64,000. PT and PTT are within normal limits. Chemistry; sodium 131, potassium 4.2, chloride 97, CO2 is 17, glucose 88, BUN 6, creatinine 0.6. AST is 251, ALT is 111, alkaline phosphatase 139, these 3 are elevated. TSH level is elevated at 5.73. EKG reviewed rapid atrial fibrillation at the rate of 115, consider anterolateral ischemic changes. One set of troponin is negative. Head CT scan without contrast and mild soft tissue swelling/hematoma of the left side over the scalp. 1. There is soft tissue swelling of the left frontal scalp and periorbital region. 2. No acute intracranial hemorrhage or acute territorial infarct. 3. Atrophy. 4. Within the left posterior frontal subcortical white matter there is a small nonspecific hypodense focus of white matter disease. Maxillofacial CT scan revealed angulation of the right nasal bone with fracture of the left anterior nasal bone. The acuity of this finding is indeterminate. There is less periorbital soft tissue swelling. Paranasal sinus disease. Rib x-ray revealed nondisplaced left rib fractures with callus-subacute appearing. Abdomen and pelvic scan, gastric posterior changes. Nonvisualized appendix. Echocardiographic study performed in March this year revealed severely impaired left ventricular systolic function, severely hypokinetic lateral wall and septum, mid apical region was not visualized. Right ventricle is moderately dilated with severely reduced systolic function of the right ventricle. Ejection fraction was estimated at 30%. ASSESSMENT: 1. Cardiomyopathy. 2. Chronic atrial fibrillation. 3. Status post alcohol intoxication. 4. Status post fall with nasal fracture and left periorbital ecchymosis. 5. Thrombocytopenia. 6. Hypothyroidism. PLAN: Continue Lopressor 50 mg twice a day, p.r.n. IV Ativan, continue Cardizem infusion 5 mg per hour, Synthroid 25 mcg daily besides Zestril 2.5 mg daily as an low dose using agents. Besides thiamine 100 mg once a day, the patient is not a suitable candidate for any sort of anticoagulation or even antiplatelet therapy, given his thrombocytopenia and recent fall and head trauma as well continued alcohol abuse. Earle Patel MD
[2016-10-20 06:24] LABS: HEMOGLOBIN 11.6 gm/dL (14.0-18.0); MEAN CELL VOLUME 88.9 fL (80.0-105.0); MEAN CORPUSCULAR HEMOGLOBIN 30.5 pg (25.0-35.0); MEAN CORPUSCULAR HGB CONC 34.3 g/dl (31.0-37.0); MEAN PLATELET VOLUME 9.5 fl (7.0-11.0)
[2016-10-20 06:29] LABS: ALBUMIN 3.8 g/dL (3.0-4.8); ALT/SGPT 93 U/L (7-56); AST/SGOT 226 U/L (15-59); BLOOD UREA NITROGEN 8 mg/dL (7-21); CALCIUM 9.4 mg/dL (8.4-10.5); GFR AFRICAN-AMERICAN > 60; GFR NON-AFRICAN AMERICAN > 60; MAGNESIUM 1.7 mg/dL (1.7-2.2)
[2016-10-20 06:36] LABS: WHITE BLOOD COUNT 1.9 10^3/ul (4.5-11.0)
[2016-10-20 06:37] LABS: PLATELET COUNT 35 10^3/uL (120.0-450.0)
[2016-10-20] MEDS ORDERED: Oxycodone/Acetaminophen 5/325 mg Tab PO STA (06:57)
[2016-10-20] MEDS: Oxycodone/Acetaminophen 5/325 mg Tab PO PRN ×2 (07:01→16:11)
[2016-10-20] MEDS ORDERED: diltiaZEM 180 mg/24 Hours CD Cap PO STA (07:02)
[2016-10-20 07:03] LABS: ANISOCYTOSIS 1+; BAND 7 % (0-2); BASOPHIL 1 % (0.0-1.0); LYMPHOCYTE 31 % (22.0-35.0); MONOCYTE 17 % (1.0-6.0); NEUTROPHIL 44 % (50.0-70.0); PLATELET ESTIMATE LOW (NORMAL)
[2016-10-20] MEDS: diltiaZEM 180 mg/24 Hours CD Cap PO SCH (08:41)
--- NOTE | 2016-10-20 09:46 | CARD ---
APPROVED REPORT EKG Measurement Heart [id number] <Conclusion> Atrial fibrillation with rapid ventricular response STTW changes c/w ischemia IVCD No change except the rate is faster
[2016-10-20] MEDS: Multivitamin With Minerals Tab PO SCH (10:53)
[2016-10-20] MEDS: Levothyroxine 25 MCG TAB PO SCH (10:53)
[2016-10-20] MEDS ORDERED: Digoxin 500 mcg/2ml (0.5 mg/2ml) Inj IVP ONE (13:38)
--- NOTE | 2016-10-20 14:36 | CP.PCM.PN ---
<Evonne Page - Last Filed: 10/20/16 18:46> Subjective - Date & Time of Evaluation Date of Evaluation: 10/20/16 Time of Evaluation: 06:15 - Subjective Subjective: Evonne Page D.O, PGY-1 Internal Medicine note Hospitalist Team 2 Patient seen and examined at bedside. Cardizem drip was discontinued yesterday as patients HR was controlled. This morning Nursing paged about patient wanted to leave AMA. Patient currently AAOx2 with periods of confusion. Patient was counseled on importance of continuing medical care. Patient ammendable to staying. Patient offers no other complaints at this time. Pain is controlled. Denies any withdrawal symptoms, headache, dizziness, N/V, visual changes, CP, palpitations, SOB, abdominal pain, urinary symptoms. Denies visual/auditory hallucinations. HR was noted to be 115-200s, patient was given Cardizem 10mg IV push, Cardizem 180mg PO STAT. Objective - Vital Signs/Intake and Output Vital Signs (last 24 hours): Temp Pulse Resp BP Pulse Ox 97.9 F 73 20 101/70 97 10/20/16 12:00 10/20/16 12:00 10/20/16 12:00 10/20/16 12:00 10/20/16 06:00 Intake and Output: 10/20/16 10/20/16 06:59 18:59 Intake Total 850 Output Total 800 Balance 50 - Medications Medications: Current Medications Digoxin (Lanoxin) 0.25 mg PO 1400 [facility] Diltiazem HCl (Cardizem Cd) 180 mg PO DAILY [facility] Last Admin: 10/20/16 08:41 Dose: 180 mg Famotidine (Pepcid) 40 mg PO HS [facility] Last Admin: 10/19/16 21:54 Dose: 40 mg Ferrous Sulfate (Feosol) 324 mg PO TID [facility] Last Admin: 10/20/16 14:23 Dose: 324 mg Folic Acid (Folic Acid) 1 mg PO DAILY [facility] Last Admin: 10/20/16 10:54 Dose: 1 mg Ibuprofen (Motrin Tab) 400 mg PO Q6H PRN PRN Reason: Pain, moderate (4-7) Last Admin: 10/20/16 03:44 Dose: 400 mg Levothyroxine Sodium (Synthroid) 25 mcg PO ACB [facility] Last Admin: 10/20/16 10:53 Dose: 25 mcg Lisinopril (Zestril) 2.5 mg PO DAILY [facility] Last Admin: 10/20/16 10:56 Dose: 2.5 mg Lorazepam (Ativan) 2 mg IVP Q3 ALLIE PRN Reason: Protocol Last Admin: 10/20/16 14:20 Dose: 2 mg Metoprolol Tartrate (Lopressor) 50 mg PO BID [facility] Last Admin: 10/20/16 11:15 Dose: Not Given Morphine Sulfate (Morphine) 2 mg IVP Q4H PRN PRN Reason: Pain, moderate (4-7) Morphine Sulfate (Morphine) 4 mg IVP Q4H PRN PRN Reason: Pain, severe (8-10) Last Admin: 10/19/16 04:28 Dose: 4 mg Multivitamins/Minerals (Therapeutic-M Tab) 1 tab PO DAILY [facility] Last Admin: 10/20/16 10:53 Dose: 1 tab Ondansetron HCl (Zofran Inj) 4 mg IVP Q4 PRN PRN Reason: Nausea/Vomiting Last Admin: 10/19/16 17:39 Dose: 4 mg Oxycodone/Acetaminophen (Percocet 5/325 Mg Tab) 1 tab PO Q6H PRN PRN Reason: Pain, severe (8-10) Stop: 10/22/16 11:31 Last Admin: 10/20/16 07:01 Dose: 1 tab Thiamine HCl (Vitamin B1 Tab) 100 mg PO DAILY [facility] Last Admin: 10/20/16 10:54 Dose: 100 mg - Labs Labs: 10/20/16 05:45 10/20/16 05:45 PT 11.2 Seconds (9.9-11.8) 10/19/16 01:25 INR 1.04 (0.93-1.08) 10/19/16 01:25 APTT 28.9 Seconds (23.7-30.8) 10/19/16 01:25 - Constitutional Appears: Non-toxic, No Acute Distress, Older Than Stated Age - Head Exam Head Exam: ATRAUMATIC, NORMAL INSPECTION - Eye Exam Eye Exam: EOMI, Normal appearance Additional comments: Bruising noted on forehead, periorbital and L temporal region Dressing c/d/i - ENT Exam ENT Exam: Mucous Membranes Moist - Neck Exam Neck Exam: Full ROM - Respiratory Exam Respiratory Exam: Clear to Ausculation Bilateral, NORMAL BREATHING PATTERN. absent: Rales, Rhonchi, Wheezes - Cardiovascular Exam Cardiovascular Exam: REGULAR RHYTHM, +S1, +S2. absent: Tachycardia - GI/Abdominal Exam GI & Abdominal Exam: Soft, Normal Bowel Sounds Additional comments: Superficial hematoma noted on L Flank - Extremities Exam Extremities Exam: Full ROM, Normal Capillary Refill - Back Exam Back Exam: NORMAL INSPECTION - Neurological Exam Neurological Exam: Abnormal Gait, Alert, Awake. absent: Oriented x3 (Orientate to place but not time) Assessment and Plan - Assessment and Plan (Free Text) Assessment: 51 year old male with a past medical history of paroxysmal AFib, tachy-viki syndrome s/p pacer, HTN, cardiomyopathy, alcohol abuse, and PUD, who presented to the ED complaining of left sided facial trauma after mechanical fall and found to be in A-fib with RVR Plan: Plan: 1. Mechanical Fall with sustained injuries as noted -CT head showed mild soft tissue swelling/hematoma of the left side of the scalp , soft tissue swelling of the left frontal scalp and periorbital region and no acute intracranial hemorrhage -CT MF showed angulation of the right nasal bone, with age indeterminant fracture of the left anterior nasal bone -Left Rib XRay showed fracture of the 6th rib, no pneumothorax, and old fracture of the 8th, 9th and 10th ribs -Pain control: Percocet 5-325mg PO Q6H prn pain, Motrin 600mg Q6H prn pain -ENT consulted, no further interventions at this time, patient to follow up with them within 1-2 weeks -Continue Dressing changes 2. Atrial Fibrillation with Rapid Ventricular Response -S/P Cardizem drip -Cardizem 10mg IV push given this am -Cardizem 180mg PO daily -Lopressor 50mg BID -Placed on telemetry monitoring, patient refusing to wear monitor -Started on Digoxin -Cardiology consulted, all recs appreciated 3. Alcohol Withdrawal, Hx Alcohol abuse -Reports last drink to be on 10/18 at approx. 1900 -Ativan 2mg q4h -Ativan 2mg q4h prn agitation -Will add Geodon 10mg Q12H prn agitation -1:1 sitter, CIWA protocols q4h, seizure, fall and aspiration precautions -Patient is still confused, oriented to place but not time, cannot sign out AMA -Continue multivitamins, folic acid, thiamine -F/U PT recommendations 4. Pancytopenia, likely alcohol induced with bone marrow suppression -Bands 7, Neutrophil 44%, ANC 969,000 -Will f/u am CBC 5. Elevated LFTs, T Bili -LFTs trending down -Tbili Increased from 3.7 to 6.8 -F/U CMP in am -CT abd/pelvis: distended, no gallbladder wall thickening or pericholecystic fluid, No evidence of stones, dilated ducts appreciated. Liver unremarkable. Nonvisualized appendix. A right-sided 1 cm calcification is noted - its origin appendix or extra appendiceal is not unknown 6. History of Hyponatremia -Continue to monitor CMPs 7. Hypothyroidism -Continue synthroid 8. Hypertension -Continue Zestril 9. GI/DVT Prophylaxis -Pepcid/scd's <Shania Garcia - Last Filed: 10/21/16 07:24> Objective - Vital Signs/Intake and Output Vital Signs (last 24 hours): Temp Pulse Resp BP Pulse Ox 98.7 F 60 20 123/85 98 10/21/16 06:00 10/21/16 06:00 10/21/16 06:00 10/21/16 06:00 10/21/16 06:00 Intake and Output: 10/21/16 10/21/16 06:59 18:59 Intake Total 240 Output Total 1250 Balance -1010 - Medications Medications: Current Medications Digoxin (Lanoxin) 0.25 mg PO 1400 [facility] Diltiazem HCl (Cardizem Cd) 180 mg PO DAILY [facility] Last Admin: 10/20/16 08:41 Dose: 180 mg Famotidine (Pepcid) 40 mg PO HS [facility] Last Admin: 10/20/16 21:47 Dose: 40 mg Ferrous Sulfate (Feosol) 324 mg PO TID [facility] Last Admin: 10/20/16 18:34 Dose: 324 mg Folic Acid (Folic Acid) 1 mg PO DAILY [facility] Last Admin: 10/20/16 10:54 Dose: 1 mg Ibuprofen (Motrin Tab) 400 mg PO Q6H PRN PRN Reason: Pain, moderate (4-7) Last Admin: 10/20/16 03:44 Dose: 400 mg Levothyroxine Sodium (Synthroid) 25 mcg PO ACB [facility] Last Admin: 10/20/16 10:53 Dose: 25 mcg Lisinopril (Zestril) 2.5 mg PO DAILY [facility] Last Admin: 10/20/16 10:56 Dose: 2.5 mg Lorazepam (Ativan) 2 mg IVP Q3 ALLIE PRN Reason: Protocol Last Admin: 10/21/16 05:48 Dose: 2 mg Metoprolol Tartrate (Lopressor) 50 mg PO BID [facility] Last Admin: 10/20/16 18:35 Dose: 50 mg Morphine Sulfate (Morphine) 2 mg IVP Q4H PRN PRN Reason: Pain, moderate (4-7) Last Admin: 10/20/16 21:47 Dose: 2 mg Morphine Sulfate (Morphine) 4 mg IVP Q4H PRN PRN Reason: Pain, severe (8-10) Last Admin: 10/19/16 04:28 Dose: 4 mg Multivitamins/Minerals (Therapeutic-M Tab) 1 tab PO DAILY [facility] Last Admin: 10/20/16 10:53 Dose: 1 tab Ondansetron HCl (Zofran Inj) 4 mg IVP Q4 PRN PRN Reason: Nausea/Vomiting Last Admin: 10/20/16 20:27 Dose: 4 mg Oxycodone/Acetaminophen (Percocet 5/325 Mg Tab) 1 tab PO Q6H PRN PRN Reason: Pain, severe (8-10) Stop: 10/22/16 11:31 Last Admin: 10/20/16 16:11 Dose: 1 tab Thiamine HCl (Vitamin B1 Tab) 100 mg PO DAILY [facility] Last Admin: 10/20/16 10:54 Dose: 100 mg Ziprasidone (Geodon Inj) 10 mg IM Q12H PRN; Protocol PRN Reason: Agitation Last Admin: 10/20/16 17:17 Dose: 10 mg - Labs Labs: 10/20/16 05:45 10/20/16 05:45 PT 11.2 Seconds (9.9-11.8) 10/19/16 01:25 INR 1.04 (0.93-1.08) 10/19/16 01:25 APTT 28.9 Seconds (23.7-30.8) 10/19/16 01:25 Attending/Attestation - Attestation I have personally seen and examined this patient.: Yes I have fully participated in the care of the patient.: Yes I have reviewed all pertinent clinical information, including history, physical exam and plan: Yes Notes (Text): 10/20/16 51 year old male with past medical history of paroxysmal afib, tachy-viki syndrome s/p pacemaker, cardiomyopathy, hypertension and chronic ETOH abuse who presented after fall at home with left sided facial trauma. CT head/ maxillofacial showed mild soft tissue swelling/hematoma of the left side of the scalp, soft tissue swelling of the left frontal scalp and periorbital region and no acute intracranial hemorrhage and angulation of the right nasal bone, with age indeterminant fracture of the left anterior nasal bone. ENT evaluation was requested who recommended outpatient follow up. He also has left rib fractures on CXR. Continue with analgesics for pain. In ER he developed Afib with RVR and started on cardizem drip. Currently he is on metoprolol and po cardizem. His HR still goes up with little activity as high as 200s at times. He is being followed by cardiology and started on digoxin. He is on banana bag for alcohol withdrawal and ativan. Today he has episodes of confusion. 1:1 observation is initiated. Kezia pabonn for severe agitation. He was counselled on alcohol abstinence on multiple occasions. Unfortunately he fails to comply. He has elevated LFT and pancytopenia likely secondary to chronic ETOH abuse. We will continue to monitor. He is on synthroid for history of hypothyroidism. Shania Garcia MD Hospitalist.
--- NOTE | 2016-10-20 17:15 | PN ---
SUBJECTIVE: The patient was confused earlier and is currently on one-to-one watch. He is in rapid atrial fibrillation. PHYSICAL EXAMINATION VITAL SIGNS: Blood pressure 101/60, heart rate 73, temperature 97.9, respirations 20. HEENT: Bilateral eye ecchymosis, worse on the left eye. NECK: No JVD. CHEST: Bilateral rhonchi. HEART: S1 and S2 regular. EXTREMITIES: No edema. LABORATORIES: CBC: WBC 1.9, hemoglobin and hematocrit 11.6 and 33.8, platelet count is 35,000. Both white count and platelet count have declined significantly compared to yesterday. Today, chem-7 was within normal limit except for potassium of 131. Total bilirubin today is higher than yesterday at 6.8. Abdominal and pelvis CT scan, changes, non-visualized appendix. ASSESSMENT: 1. Rapid atrial fibrillation. 2. Status post fall with left rib fractures as well as nasal fracture. 3. Dilated cardiomyopathy. 4. Alcohol intoxication. 5. Leukopenia and thrombocytopenia. RECOMMENDATIONS: Continue Cardizem at 180 mg once a day, Lopressor 50 mg twice a day, Synthroid 25 mcg once a day, Zestril 2.5 mg once a day. I will administer digoxin 0.25 mg intravenously now and then orally daily. Earle Patel MD
[2016-10-20] MEDS: Morphine 2 mg/ml ISec IVP PRN (21:47)
--- NOTE | 2016-10-21 04:15 | CON ---
DATE: 10/20/2016 ENT CONSULTATION CHIEF COMPLAINT: Falling on the face. HISTORY OF PRESENT ILLNESS: This is a 51-year-old male with a past medical history of AFib on pacemaker, alcohol abuse, who presented to the ER on Monday after falling on his face. The patient reports that he had 10 beers afterwards he decided to take a shower and while in the shower he slipped and fell by on his face, which caused him to lose his conscious. One of his family members came in, called 911, and he was transferred to [facility] emergency room. The patient reports that when he was awaken he noticed that there was a blood coming out his nose and nothing else, which spontaneously stopped after he applied some pressure. He reports that similar episode happened to him couple of years back where he also fell on his face and had a septal break and nasal bone fracture, which was fixed by his uncle, who is not a physician. The patient denies any hearing loss or any ear pain or any discharge from the ear. No blood from the ear or anything so forth. He denies any breathing issues. He mentioned that he is able to walk around the hospital perfectly fine and his breathing is not impacted by it. He also mentions that there is sometimes even he pull his nose, he notices some old clots coming out, but no active bleeding at this point. He reports no difficulty in swelling or eating his food. REVIEW OF SYSTEMS: As per HPI. PAST MEDICAL HISTORY: AFib, currently on pacemaker and alcohol abuse. PAST SURGICAL HISTORY: Gastric bypass 10 years ago abdominal surgery related to complication of gastric bypass. MEDICATIONS: He cannot recall the list, it is a long list such as metoprolol. ALLERGIES: NO KNOWN DRUG ALLERGIES. SOCIAL HISTORY: The patient is a well known alcohol abuser who drinks an average 10 to 15 beers a day. No smoking history and no illicit drug use history. PHYSICAL EXAMINATION: GENERAL: The patient is sitting in bed in no acute distress. HEENT: Ears: The left ear canal is patent without any cerumen. The tympanic membrane is intact without any effusions. The right ear canal is impacted with cerumen, but no blood or anything is appreciated. There is no Raccoon sign behind postauricular bilaterally. Nose: The nasal cavity was appreciated. There are no old clots or active bleeding appreciated in both nose bilaterally. Oral cavity has moist mucus, there is no blood appreciated. No masses or lesions appreciated. The oral cavity is without any old blood or active blood. The nose is appreciated with a left septal deviation externally and internally. Manual palpation of the external nose was carried out. The nasal bone is not displaced and cannot be freely dislodged. ASSESSMENT AND PLAN: This is a 51-year-old male with past medical history of AFib, on pacemaker and alcohol abuse, who presented to the ER after fall on his face after drinking couple of beers. The patient does not report any difficulty in breathing or any active bleeding from his nose. No breathing issues. The CT scan was carried out in the ER, which showed a non-displacing fracture of the nasal bone, which is not impinging his nasal cavity. The patient was told that he is cleared from ENT point of view to follow up in the clinic in 1 to 2 weeks for possible close reduction, no surgical intervention currently indicated. If symptoms of breathing worsen, the patient is told to follow up with ER or call the ENT clinic. Talha Basurto DO
[2016-10-21] MEDS: Levothyroxine 25 MCG TAB PO SCH (08:04)
[2016-10-21 09:05] LABS: BASO # 0.01 K/mm3 (0.0-2.0); BASO % 0.4 % (0.0-3.0); EOS % 0.8 % (1.5-5.0); GRAN # 1.52 (1.4-6.5); GRAN % 64.2 % (50.0-68.0); HEMOGLOBIN 11.7 gm/dL (14.0-18.0); LYMPH # 0.5 (1.2-3.4); LYMPH % 21.1 % (22.0-35.0); MEAN CELL VOLUME 90.3 fL (80.0-105.0); MEAN CORPUSCULAR HEMOGLOBIN 30.6 pg (25.0-35.0); MEAN CORPUSCULAR HGB CONC 33.9 g/dl (31.0-37.0); MEAN PLATELET VOLUME 10.7 fl (7.0-11.0); MONO # 0.3 (0.1-0.6); MONO % 13.5 % (1.0-6.0); PLATELET COUNT 47 10^3/uL (120.0-450.0); RBC 3.82 10^6/uL (3.5-6.1); RED CELL DISTRIBUTION WIDTH 17.9 % (11.5-14.5)
[2016-10-21 09:11] LABS: WHITE BLOOD COUNT 2.4 10^3/ul (4.5-11.0)
[2016-10-21] MEDS: Multivitamin With Minerals Tab PO SCH (09:12)
[2016-10-21] MEDS: oxyCODONE 5 mg Immediate Release Tab PO PRN ×2 (09:12→15:38)
[2016-10-21] MEDS: diltiaZEM 180 mg/24 Hours CD Cap PO SCH (09:12)
[2016-10-21 09:17] LABS: ALB/GLOB RATIO 1.1 (1.1-1.8); ALBUMIN 3.9 g/dL (3.0-4.8); ALT/SGPT 107 U/L (7-56); AST/SGOT 243 U/L (15-59); BLOOD UREA NITROGEN 6 mg/dL (7-21); CALCIUM 9.5 mg/dL (8.4-10.5); GFR AFRICAN-AMERICAN > 60; GFR NON-AFRICAN AMERICAN > 60; MAGNESIUM 1.6 mg/dL (1.7-2.2)
[2016-10-21] MEDS ORDERED: Magnesium Sulfate 2 GM in Sodium Chloride 0.9% 100 ML IVPB ONE (09:35)
--- NOTE | 2016-10-21 13:27 | CP.PCM.PN ---
<Evonne Page - Last Filed: 10/21/16 14:01> Subjective - Date & Time of Evaluation Date of Evaluation: 10/21/16 Time of Evaluation: 07:30 - Subjective Subjective: Patient seen and examined at bedside. Per nursing, patient was agitated yesterday and was given Ativan 4mg x 1. Patient is currently in bed, doing well. Not combative. AAOx2, Pain is 7/10. No other complaints at this time. Tolerating diet. Denies auditory/visual hallucinations, withdrawal symptoms. Denies headache, dizziness, changes in vision, CP, SOB, urinary symptoms. Objective - Vital Signs/Intake and Output Vital Signs (last 24 hours): Temp Pulse Resp BP Pulse Ox 98 F 72 18 108/58 L 98 10/21/16 12:00 10/21/16 12:00 10/21/16 12:00 10/21/16 12:00 10/21/16 06:00 Intake and Output: 10/21/16 10/21/16 06:59 18:59 Intake Total 240 Output Total 1250 Balance -1010 - Medications Medications: Current Medications Digoxin (Lanoxin) 0.25 mg PO 1400 REPLACED BY [facility] Diltiazem HCl (Cardizem Cd) 180 mg PO DAILY REPLACED BY [facility] Last Admin: 10/21/16 09:12 Dose: 180 mg Famotidine (Pepcid) 40 mg PO HS REPLACED BY [facility] Last Admin: 10/20/16 21:47 Dose: 40 mg Ferrous Sulfate (Feosol) 324 mg PO TID REPLACED BY [facility] Last Admin: 10/21/16 09:12 Dose: 324 mg Folic Acid (Folic Acid) 1 mg PO DAILY REPLACED BY [facility] Last Admin: 10/21/16 09:12 Dose: 1 mg Ibuprofen (Motrin Tab) 400 mg PO Q6H PRN PRN Reason: Pain, moderate (4-7) Last Admin: 10/20/16 03:44 Dose: 400 mg Levothyroxine Sodium (Synthroid) 25 mcg PO ACB REPLACED BY [facility] Last Admin: 10/21/16 08:04 Dose: 25 mcg Lisinopril (Zestril) 2.5 mg PO DAILY REPLACED BY [facility] Last Admin: 10/21/16 09:11 Dose: 2.5 mg Metoprolol Tartrate (Lopressor) 50 mg PO BID REPLACED BY [facility] Last Admin: 10/21/16 09:12 Dose: 50 mg Morphine Sulfate (Morphine) 2 mg IVP Q4H PRN PRN Reason: Pain, moderate (4-7) Last Admin: 10/20/16 21:47 Dose: 2 mg Morphine Sulfate (Morphine) 4 mg IVP Q4H PRN PRN Reason: Pain, severe (8-10) Last Admin: 10/19/16 04:28 Dose: 4 mg Multivitamins/Minerals (Therapeutic-M Tab) 1 tab PO DAILY [facility] Last Admin: 10/21/16 09:12 Dose: 1 tab Ondansetron HCl (Zofran Inj) 4 mg IVP Q4 PRN PRN Reason: Nausea/Vomiting Last Admin: 10/20/16 20:27 Dose: 4 mg Oxycodone HCl (Oxycodone Immediate Release Tab) 5 mg PO Q6H PRN PRN Reason: Pain, moderate (4-7) Last Admin: 10/21/16 09:12 Dose: 5 mg Thiamine HCl (Vitamin B1 Tab) 100 mg PO DAILY [facility] Last Admin: 10/21/16 09:12 Dose: 100 mg Ziprasidone (Geodon Inj) 10 mg IM Q12H PRN; Protocol PRN Reason: Agitation Last Admin: 10/20/16 17:17 Dose: 10 mg - Labs Labs: 10/21/16 08:30 10/21/16 08:30 PT 11.2 Seconds (9.9-11.8) 10/19/16 01:25 INR 1.04 (0.93-1.08) 10/19/16 01:25 APTT 28.9 Seconds (23.7-30.8) 10/19/16 01:25 - Constitutional Appears: Non-toxic, No Acute Distress, Unkempt - Head Exam Head Exam: ATRAUMATIC, NORMAL INSPECTION - Eye Exam Eye Exam: EOMI, Normal appearance Additional comments: Ecchymosis in L periorbital region Bruising noted on forehead, L temporal region Dressing c/d/i - ENT Exam ENT Exam: Mucous Membranes Moist - Neck Exam Neck Exam: Full ROM - Respiratory Exam Respiratory Exam: Clear to Ausculation Bilateral, NORMAL BREATHING PATTERN. absent: Rales, Rhonchi, Wheezes - Cardiovascular Exam Cardiovascular Exam: REGULAR RHYTHM, +S1, +S2 - GI/Abdominal Exam GI & Abdominal Exam: Soft, Tenderness. absent: Guarding Additional comments: Superficial hematoma on L flank unchanged - Extremities Exam Extremities Exam: Full ROM, Normal Inspection - Back Exam Back Exam: NORMAL INSPECTION - Neurological Exam Neurological Exam: Alert, Awake. absent: Oriented x3 (AAOx2) - Psychiatric Exam Psychiatric exam: Normal Affect, Normal Mood - Skin Skin Exam: Normal Color, Warm Assessment and Plan - Assessment and Plan (Free Text) Assessment: 51 year old male with a past medical history of paroxysmal AFib, tachy-viki syndrome s/p pacer, HTN, cardiomyopathy, alcohol abuse, and PUD, who presented to the ED complaining of left sided facial trauma after mechanical fall and found to be in A-fib with RVR Plan: 1. Mechanical Fall with sustained injuries as noted -CT head showed mild soft tissue swelling/hematoma of the left side of the scalp , soft tissue swelling of the left frontal scalp and periorbital region and no acute intracranial hemorrhage -CT MF showed angulation of the right nasal bone, with age indeterminant fracture of the left anterior nasal bone -Left Rib XRay showed fracture of the 6th rib, no pneumothorax, and old fracture of the 8th, 9th and 10th ribs -Pain control: Oxycodone 5mg Q6H prn pain Motrin 600mg Q6H prn pain -ENT consulted, no further interventions at this time, patient to follow up with them within 1-2 weeks -Continue Dressing changes 2. Atrial Fibrillation with Rapid Ventricular Response -S/P Cardizem drip -Cardizem 180mg PO daily -Lopressor 50mg BID -Digoxin increased to 0.25 mcg -Cardiology consulted, all recs appreciated 3. Alcohol Withdrawal, Hx Alcohol abuse -Reports last drink to be on 10/18 at approx. 1900 -Ativan 2mg q3H [facility] -Geodon 10mg Q12H prn agitation -Continue multivitamins, folic acid, thiamine -1:1 sitter, CIWA protocols q4h, seizure, fall and aspiration precautions -Patient is still confused, oriented to place but not time -F/U PT recommendations 4. Pancytopenia, likely alcohol induced with bone marrow suppression -WBC 2.2, Platelets 47, slightly improving -Continue to monitor 5. Elevated LFTs, T Bili -LFTs trending down -Tbili 6.8 -> 5.8 -F/U CMP in am -CT abd/pelvis: distended, no gallbladder wall thickening or pericholecystic fluid, No evidence of stones, dilated ducts appreciated. Liver unremarkable. Nonvisualized appendix. A right-sided 1 cm calcification is noted - its origin appendix or extra appendiceal is not unknown 6. Hypomagnesemia - Mg 1.6 - Repleted with 2gm mag sulfate - F/U mag tomorrow 7. History of Hyponatremia -Continue to monitor CMPs 8. Hypothyroidism -Continue synthroid 9. Hypertension -Continue Zestril 10. GI/DVT Prophylaxis -Pepcid/scd's <Shania Garcia - Last Filed: 10/21/16 16:45> Objective - Vital Signs/Intake and Output Vital Signs (last 24 hours): Temp Pulse Resp BP Pulse Ox 98 F 70 18 108/58 L 96 10/21/16 12:00 10/21/16 14:00 10/21/16 12:00 10/21/16 12:00 10/21/16 09:00 Intake and Output: 10/21/16 10/21/16 06:59 18:59 Intake Total 240 Output Total 1250 Balance -1010 - Medications Medications: Current Medications Digoxin (Lanoxin) 0.25 mg PO 1400 REPLACED BY [facility] Last Admin: 10/21/16 14:19 Dose: 0.25 mg Diltiazem HCl (Cardizem Cd) 180 mg PO DAILY REPLACED BY [facility] Last Admin: 10/21/16 09:12 Dose: 180 mg Famotidine (Pepcid) 40 mg PO HS REPLACED BY [facility] Last Admin: 10/20/16 21:47 Dose: 40 mg Ferrous Sulfate (Feosol) 324 mg PO TID REPLACED BY [facility] Last Admin: 10/21/16 14:19 Dose: 324 mg Folic Acid (Folic Acid) 1 mg PO DAILY REPLACED BY [facility] Last Admin: 10/21/16 09:12 Dose: 1 mg Ibuprofen (Motrin Tab) 400 mg PO Q6H PRN PRN Reason: Pain, moderate (4-7) Last Admin: 10/20/16 03:44 Dose: 400 mg Levothyroxine Sodium (Synthroid) 25 mcg PO ACB REPLACED BY [facility] Last Admin: 10/21/16 08:04 Dose: 25 mcg Lisinopril (Zestril) 2.5 mg PO DAILY REPLACED BY [facility] Last Admin: 10/21/16 09:11 Dose: 2.5 mg Lorazepam (Ativan) 2 mg IVP Q3H PRN; Protocol PRN Reason: Anxiety Last Admin: 10/21/16 14:19 Dose: 2 mg Metoprolol Tartrate (Lopressor) 50 mg PO BID REPLACED BY [facility] Last Admin: 10/21/16 09:12 Dose: 50 mg Morphine Sulfate (Morphine) 2 mg IVP Q4H PRN PRN Reason: Pain, moderate (4-7) Last Admin: 10/20/16 21:47 Dose: 2 mg Morphine Sulfate (Morphine) 4 mg IVP Q4H PRN PRN Reason: Pain, severe (8-10) Last Admin: 10/19/16 04:28 Dose: 4 mg Multivitamins/Minerals (Therapeutic-M Tab) 1 tab PO DAILY REPLACED BY [facility] Last Admin: 10/21/16 09:12 Dose: 1 tab Ondansetron HCl (Zofran Inj) 4 mg IVP Q4 PRN PRN Reason: Nausea/Vomiting Last Admin: 10/21/16 14:25 Dose: 4 mg Oxycodone HCl (Oxycodone Immediate Release Tab) 5 mg PO Q6H PRN PRN Reason: Pain, moderate (4-7) Last Admin: 10/21/16 15:38 Dose: 5 mg Thiamine HCl (Vitamin B1 Tab) 100 mg PO DAILY REPLACED BY [facility] Last Admin: 10/21/16 09:12 Dose: 100 mg Ziprasidone (Geodon Inj) 10 mg IM Q12H PRN; Protocol PRN Reason: Agitation Last Admin: 10/20/16 17:17 Dose: 10 mg - Labs Labs: 10/21/16 08:30 10/21/16 08:30 PT 11.2 Seconds (9.9-11.8) 10/19/16 01:25 INR 1.04 (0.93-1.08) 10/19/16 01:25 APTT 28.9 Seconds (23.7-30.8) 10/19/16 01:25 Attending/Attestation - Attestation I have personally seen and examined this patient.: Yes I have fully participated in the care of the patient.: Yes I have reviewed all pertinent clinical information, including history, physical exam and plan: Yes Notes (Text): 10/21/16 16:41 51 year old male with past medical history of paroxysmal afib, tachy-viki syndrome s/p pacemaker, cardiomyopathy, hypertension and chronic ETOH abuse who presented after fall at home with left sided facial trauma. CT head/ maxillofacial showed mild soft tissue swelling/hematoma of the left side of the scalp, soft tissue swelling of the left frontal scalp and periorbital region and no acute intracranial hemorrhage and angulation of the right nasal bone, with age indeterminant fracture of the left anterior nasal bone. ENT evaluation was appreciated who recommended outpatient follow up. He also has left rib fractures on CXR. Continue with analgesics for pain. Will switch percocet prn to oxycdone due to elevated LFTs. In ER he developed Afib with RVR and started on cardizem drip. Currently he is on metoprolol and po cardizem. He is being followed by cardiology and started on digoxin. His HR has improved since yesterday. He is ativan for alcohol withdrawal. He is on multivitamin, folic acid and thiamine. He was counselled on alcohol abstinence. He is still slightly confused yesterday but improved since yesterday without agitation. He is on 1: 1 observation for safety. He has elevated LFT and pancytopenia likely secondary to chronic ETOH abuse. We will continue to monitor. Labs show some improvement today. Will replete and repeat lytes. He is on synthroid for history of hypothyroidism. Shania Garcia MD Hospitalist.
[2016-10-21] MEDS: Digoxin 250 mcg (0.25 mg) Tab PO SCH (14:19)
--- NOTE | 2016-10-21 18:29 | CP.PCM.PN ---
Subjective - Date & Time of Evaluation Date of Evaluation: 10/21/16 Time of Evaluation: 18:28 - Subjective Subjective: pt needs angiocath insertion . Objective - Vital Signs/Intake and Output Vital Signs (last 24 hours): Temp Pulse Resp BP Pulse Ox 98.8 F 87 16 117/87 96 10/21/16 17:09 10/21/16 17:56 10/21/16 17:09 10/21/16 17:30 10/21/16 09:00 Intake and Output: 10/21/16 10/21/16 06:59 18:59 Intake Total 240 Output Total 1250 Balance -1010 - Medications Medications: Current Medications Digoxin (Lanoxin) 0.25 mg PO 1400 [facility] Last Admin: 10/21/16 14:19 Dose: 0.25 mg Diltiazem HCl (Cardizem Cd) 180 mg PO DAILY [facility] Last Admin: 10/21/16 09:12 Dose: 180 mg Famotidine (Pepcid) 40 mg PO HS [facility] Last Admin: 10/20/16 21:47 Dose: 40 mg Ferrous Sulfate (Feosol) 324 mg PO TID [facility] Last Admin: 10/21/16 17:30 Dose: 324 mg Folic Acid (Folic Acid) 1 mg PO DAILY [facility] Last Admin: 10/21/16 09:12 Dose: 1 mg Ibuprofen (Motrin Tab) 400 mg PO Q6H PRN PRN Reason: Pain, moderate (4-7) Last Admin: 10/20/16 03:44 Dose: 400 mg Levothyroxine Sodium (Synthroid) 25 mcg PO ACB [facility] Last Admin: 10/21/16 08:04 Dose: 25 mcg Lisinopril (Zestril) 2.5 mg PO DAILY [facility] Last Admin: 10/21/16 09:11 Dose: 2.5 mg Lorazepam (Ativan) 2 mg IVP Q3H PRN; Protocol PRN Reason: Anxiety Last Admin: 10/21/16 14:19 Dose: 2 mg Metoprolol Tartrate (Lopressor) 50 mg PO BID [facility] Last Admin: 10/21/16 17:30 Dose: 50 mg Morphine Sulfate (Morphine) 2 mg IVP Q4H PRN PRN Reason: Pain, moderate (4-7) Last Admin: 10/20/16 21:47 Dose: 2 mg Morphine Sulfate (Morphine) 4 mg IVP Q4H PRN PRN Reason: Pain, severe (8-10) Last Admin: 10/19/16 04:28 Dose: 4 mg Multivitamins/Minerals (Therapeutic-M Tab) 1 tab PO DAILY [facility] Last Admin: 10/21/16 09:12 Dose: 1 tab Ondansetron HCl (Zofran Inj) 4 mg IVP Q4 PRN PRN Reason: Nausea/Vomiting Last Admin: 10/21/16 14:25 Dose: 4 mg Oxycodone HCl (Oxycodone Immediate Release Tab) 5 mg PO Q6H PRN PRN Reason: Pain, moderate (4-7) Last Admin: 10/21/16 15:38 Dose: 5 mg Thiamine HCl (Vitamin B1 Tab) 100 mg PO DAILY [facility] Last Admin: 10/21/16 09:12 Dose: 100 mg Ziprasidone (Geodon Inj) 10 mg IM Q12H PRN; Protocol PRN Reason: Agitation Last Admin: 10/20/16 17:17 Dose: 10 mg - Labs Labs: 10/21/16 08:30 10/21/16 08:30 PT 11.2 Seconds (9.9-11.8) 10/19/16 01:25 INR 1.04 (0.93-1.08) 10/19/16 01:25 APTT 28.9 Seconds (23.7-30.8) 10/19/16 01:25 Assessment and Plan - Assessment and Plan (Free Text) Assessment: 24 guage angiocath inserted in rt ankle area.
--- NOTE | 2016-10-21 19:46 | PN ---
SUBJECTIVE: The patient is oriented to place. His heart rate is controlled on the monitor with edema and ventricular pacemaker placed with an underlying atrial fibrillation. PHYSICAL EXAMINATION: VITAL SIGNS: Blood pressure 108/58, heart rate 72, temperature 98, and respirations 18. HEENT: Significant left periorbital ecchymosis. NECK: No JVD. CHEST: Clear. HEART: S1 and S2 regular. EXTREMITIES: No pedal edema. LABORATORY DATA: Hemoglobin and hematocrit 11.7 and 34.5; white count and platelet count are 2.4 and 47,000. SMA-7: Sodium 131, potassium 4.2, chloride 97, CO2 is 26, glucose 97, BUN 6, creatinine 0.7. ASSESSMENT: 1. Cardiomyopathy. 2. Chronic atrial fibrillation. 3. Status post fall with nondisplaced nasal fracture as well as left-sided fracture. 4. Ethanol abuse, status post intoxication. 5. Leukopenia and thrombocytopenia. RECOMMENDATIONS: Continue Cardizem at 180 mg once a day orally; Lanoxin 0.25 mg orally once a day; Lopressor 50 mg twice a day; Synthroid 25 mcg once a day; Zestril 2.5 mg once a day. Obtain serum digoxin level in the a.m. Earle Patel MD
[2016-10-21] MEDS: Morphine 2 mg/ml ISec IVP PRN (21:02)
[2016-10-22] MEDS: oxyCODONE 5 mg Immediate Release Tab PO PRN ×3 (05:02→22:53)
[2016-10-22 07:30] LABS: GRAN # 1.39 (1.4-6.5); GRAN % 62.3 % (50.0-68.0); HEMOGLOBIN 11.2 gm/dL (14.0-18.0); LYMPH # 0.4 (1.2-3.4); LYMPH % 15.7 % (22.0-35.0); MEAN CELL VOLUME 91.1 fL (80.0-105.0); MEAN CORPUSCULAR HEMOGLOBIN 31.1 pg (25.0-35.0); MEAN CORPUSCULAR HGB CONC 34.1 g/dl (31.0-37.0); MONO # 0.5 (0.1-0.6); PLATELET COUNT 62 10^3/uL (120.0-450.0); RED CELL DISTRIBUTION WIDTH 17.8 % (11.5-14.5)
[2016-10-22 07:34] LABS: WHITE BLOOD COUNT 2.2 10^3/ul (4.5-11.0)
[2016-10-22 07:49] LABS: ALBUMIN 3.9 g/dL (3.0-4.8); ALT/SGPT 112 U/L (7-56); AST/SGOT 180 U/L (15-59); BLOOD UREA NITROGEN 12 mg/dL (7-21); CALCIUM 9.4 mg/dL (8.4-10.5); GFR AFRICAN-AMERICAN > 60; GFR NON-AFRICAN AMERICAN > 60; MAGNESIUM 1.8 mg/dL (1.7-2.2)
[2016-10-22] MEDS: Levothyroxine 25 MCG TAB PO SCH (07:59)
[2016-10-22] MEDS: Multivitamin With Minerals Tab PO SCH (09:16)
[2016-10-22] MEDS: diltiaZEM 180 mg/24 Hours CD Cap PO SCH (09:16)
[2016-10-22 12:42] VITALS: RESP 20
[2016-10-22] MEDS: Digoxin 250 mcg (0.25 mg) Tab PO SCH (15:36)
--- NOTE | 2016-10-22 15:55 | PN ---
SUBJECTIVE: The patient denies any headache. He is experiencing blurry vision in the left eye. PHYSICAL EXAMINATION: VITAL SIGNS: Blood pressure 115/74, heart rate 90, temperature 99.4, respirations 20. HEENT: Significant left periorbital ecchymosis. NECK: No JVD. CHEST: Clear. HEART: S1 and S2 regular. EXTREMITIES: No edema. LABORATORY DATA: White count 2.2, platelet count 62,000 there is some improvement of the platelet count, hemoglobin and hematocrit 11.2 and 32.8. SMA-7 is within normal limit except for sodium 130 and chloride of 97. ASSESSMENT: 1. Chronic atrial fibrillation. 2. Dilated cardiomyopathy. 3. Ethanol abuse. 4. Status post fall with nasal fracture and left rib fracture. CONDITION: Continue Cardizem CD at 18 mg once a day, digoxin 0.25 mg once a day, Lopressor 50 mg twice a day, Synthroid 25 mcg once a day, Zestril 2.5 mg once a day. Digoxin level today is within normal limits at 0.8. Earle Patel MD
--- NOTE | 2016-10-22 20:25 | CP.PCM.PN ---
Subjective - Date & Time of Evaluation Date of Evaluation: 10/22/16 Time of Evaluation: 07:30 Objective - Vital Signs/Intake and Output Vital Signs (last 24 hours): Temp Pulse Resp BP Pulse Ox 98.6 F 87 20 98/66 L 99 10/22/16 16:47 10/22/16 16:47 10/22/16 16:47 10/22/16 16:47 10/22/16 16:47 - Medications Medications: Current Medications Digoxin (Lanoxin) 0.25 mg PO 1400 [facility] Last Admin: 10/22/16 15:36 Dose: 0.25 mg Diltiazem HCl (Cardizem Cd) 180 mg PO DAILY [facility] Last Admin: 10/22/16 09:16 Dose: 180 mg Famotidine (Pepcid) 40 mg PO HS [facility] Last Admin: 10/21/16 21:02 Dose: 40 mg Ferrous Sulfate (Feosol) 324 mg PO TID [facility] Last Admin: 10/22/16 17:57 Dose: 324 mg Folic Acid (Folic Acid) 1 mg PO DAILY [facility] Last Admin: 10/22/16 09:16 Dose: 1 mg Ibuprofen (Motrin Tab) 400 mg PO Q6H PRN PRN Reason: Pain, moderate (4-7) Last Admin: 10/20/16 03:44 Dose: 400 mg Levothyroxine Sodium (Synthroid) 25 mcg PO ACB [facility] Last Admin: 10/22/16 07:59 Dose: 25 mcg Lisinopril (Zestril) 2.5 mg PO DAILY [facility] Last Admin: 10/22/16 09:17 Dose: 2.5 mg Lorazepam (Ativan) 2 mg IVP Q3H PRN; Protocol PRN Reason: Anxiety Last Admin: 10/22/16 15:47 Dose: 2 mg Lorazepam (Ativan) 2 mg PO Q8 [facility] PRN Reason: Protocol Metoprolol Tartrate (Lopressor) 50 mg PO BID [facility] Last Admin: 10/22/16 17:57 Dose: 50 mg Morphine Sulfate (Morphine) 2 mg IVP Q4H PRN PRN Reason: Pain, moderate (4-7) Last Admin: 10/21/16 21:02 Dose: 2 mg Morphine Sulfate (Morphine) 4 mg IVP Q4H PRN PRN Reason: Pain, severe (8-10) Last Admin: 10/19/16 04:28 Dose: 4 mg Multivitamins/Minerals (Therapeutic-M Tab) 1 tab PO DAILY [facility] Last Admin: 10/22/16 09:16 Dose: 1 tab Ondansetron HCl (Zofran Inj) 4 mg IVP Q4 PRN PRN Reason: Nausea/Vomiting Last Admin: 10/22/16 09:12 Dose: 4 mg Oxycodone HCl (Oxycodone Immediate Release Tab) 5 mg PO Q6H PRN PRN Reason: Pain, moderate (4-7) Last Admin: 10/22/16 15:37 Dose: 5 mg Thiamine HCl (Vitamin B1 Tab) 100 mg PO DAILY [facility] Last Admin: 10/22/16 09:16 Dose: 100 mg Ziprasidone (Geodon Inj) 10 mg IM Q12H PRN; Protocol PRN Reason: Agitation Last Admin: 10/20/16 17:17 Dose: 10 mg - Labs Labs: 10/22/16 07:18 10/22/16 07:18 PT 11.2 Seconds (9.9-11.8) 10/19/16 01:25 INR 1.04 (0.93-1.08) 10/19/16 01:25 APTT 28.9 Seconds (23.7-30.8) 10/19/16 01:25
[2016-10-22] MEDS: Morphine 2 mg/ml ISec IVP PRN (20:55)
--- NOTE | 2016-10-22 22:24 | CP.PCM.PN ---
<Maico Zuleta - Last Filed: 10/22/16 22:18> Subjective - Date & Time of Evaluation Date of Evaluation: 10/22/16 Time of Evaluation: 22:18 - Subjective Subjective: Pt seen and examined at bedside. Pt with no acute events overnight. This morning , patient is complaining of nausea and vomiting. Pt had one episode of nonbloody , nonbilious emesis and would not eat. Also, admits to mild epigastric abdominal pain. Denies CP, SOB, diarrhea. Objective - Vital Signs/Intake and Output Vital Signs (last 24 hours): Temp Pulse Resp BP Pulse Ox 98.6 F 87 20 98/66 L 99 10/22/16 16:47 10/22/16 16:47 10/22/16 16:47 10/22/16 16:47 10/22/16 16:47 - Medications Medications: Current Medications Digoxin (Lanoxin) 0.25 mg PO 1400 [facility] Last Admin: 10/22/16 15:36 Dose: 0.25 mg Diltiazem HCl (Cardizem Cd) 180 mg PO DAILY [facility] Last Admin: 10/22/16 09:16 Dose: 180 mg Famotidine (Pepcid) 40 mg PO HS [facility] Last Admin: 10/22/16 21:24 Dose: 40 mg Ferrous Sulfate (Feosol) 324 mg PO TID [facility] Last Admin: 10/22/16 17:57 Dose: 324 mg Folic Acid (Folic Acid) 1 mg PO DAILY [facility] Last Admin: 10/22/16 09:16 Dose: 1 mg Ibuprofen (Motrin Tab) 400 mg PO Q6H PRN PRN Reason: Pain, moderate (4-7) Last Admin: 10/20/16 03:44 Dose: 400 mg Levothyroxine Sodium (Synthroid) 25 mcg PO ACB [facility] Last Admin: 10/22/16 07:59 Dose: 25 mcg Lisinopril (Zestril) 2.5 mg PO DAILY [facility] Last Admin: 10/22/16 09:17 Dose: 2.5 mg Lorazepam (Ativan) 2 mg IVP Q3H PRN; Protocol PRN Reason: Anxiety Last Admin: 10/22/16 15:47 Dose: 2 mg Lorazepam (Ativan) 2 mg PO Q8 [facility] PRN Reason: Protocol Metoprolol Tartrate (Lopressor) 50 mg PO BID [facility] Last Admin: 10/22/16 17:57 Dose: 50 mg Morphine Sulfate (Morphine) 2 mg IVP Q4H PRN PRN Reason: Pain, moderate (4-7) Last Admin: 10/22/16 20:55 Dose: 2 mg Morphine Sulfate (Morphine) 4 mg IVP Q4H PRN PRN Reason: Pain, severe (8-10) Last Admin: 10/19/16 04:28 Dose: 4 mg Multivitamins/Minerals (Therapeutic-M Tab) 1 tab PO DAILY [facility] Last Admin: 10/22/16 09:16 Dose: 1 tab Ondansetron HCl (Zofran Inj) 4 mg IVP Q4 PRN PRN Reason: Nausea/Vomiting Last Admin: 10/22/16 20:57 Dose: 4 mg Oxycodone HCl (Oxycodone Immediate Release Tab) 5 mg PO Q6H PRN PRN Reason: Pain, moderate (4-7) Last Admin: 10/22/16 15:37 Dose: 5 mg Thiamine HCl (Vitamin B1 Tab) 100 mg PO DAILY [facility] Last Admin: 10/22/16 09:16 Dose: 100 mg Ziprasidone (Geodon Inj) 10 mg IM Q12H PRN; Protocol PRN Reason: Agitation Last Admin: 10/20/16 17:17 Dose: 10 mg - Labs Labs: 10/22/16 07:18 10/22/16 07:18 PT 11.2 Seconds (9.9-11.8) 10/19/16 01:25 INR 1.04 (0.93-1.08) 10/19/16 01:25 APTT 28.9 Seconds (23.7-30.8) 10/19/16 01:25 - Constitutional Appears: Non-toxic, No Acute Distress - Head Exam Additional comments: Bruising noted around left orbit and nose. Left head bandaged. - ENT Exam ENT Exam: Mucous Membranes Moist - Respiratory Exam Respiratory Exam: Clear to Ausculation Bilateral, NORMAL BREATHING PATTERN. absent: Rales, Rhonchi, Wheezes - Cardiovascular Exam Cardiovascular Exam: Irregular Rhythm, +S1, +S2 - GI/Abdominal Exam GI & Abdominal Exam: Soft, Tenderness (Epigastric), Normal Bowel Sounds - Extremities Exam Extremities Exam: absent: Calf Tenderness, Pedal Edema - Neurological Exam Neurological Exam: Alert, Awake, Oriented x3 - Psychiatric Exam Psychiatric exam: Normal Affect, Normal Mood - Skin Skin Exam: Intact, Normal Color, Warm Assessment and Plan - Assessment and Plan (Free Text) Plan: 51 y/o M with PMH of paroxysmal AFib, tachy-viki syndrome s/p pacer, HTN, cardiomyopathy, alcohol abuse, and PUD, who presented s/p fall secondary to A- fib with RVR and alcohol intoxication. Pt recommended to apply cold packs to swollen areas. Pt will also have lipase and electrolytes measured in AM labs. 1. Mechanical Fall secondary to alcohol intoxication -Cold compresses applied to area -Continue current pain control regimen -CT head showed mild soft tissue swelling/hematoma of the left side of the scalp , soft tissue swelling of the left frontal scalp and periorbital region and no acute intracranial hemorrhage -CT MF showed angulation of the right nasal bone, with age indeterminant fracture of the left anterior nasal bone -Left Rib XRay showed fracture of the 6th rib, no pneumothorax, and old fracture of the 8th, 9th and 10th ribs -ENT consulted, no surgical intervention. Follow up outpt in 1-2 weeks 2. Atrial Fibrillation with Rapid Ventricular Response -Rate controlled in the 90's overnight -Remains in A-fib -Cardizem 180mg PO daily -Lopressor 50mg BID -Digoxin increased to 0.25 mcg -Cardiology consulted 3. Alcohol Withdrawal -Ativan 2mg q3H ALLIE -Geodon 10mg Q12H prn agitation -Continue multivitamins, folic acid, thiamine -D/C 1:1, Avasys applied -Continue PT 4. 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 PPX -Pepcid -SCDs -Torin Seen, reviewed, and discussed with attending Song PGY-2 <Mk Kilpatrick - Last Filed: 10/23/16 19:57> Objective - Vital Signs/Intake and Output Vital Signs (last 24 hours): Temp Pulse Resp BP Pulse Ox 98.1 F 95 H 20 96/66 L 98 10/23/16 16:23 10/23/16 16:23 10/23/16 16:23 10/23/16 16:23 10/23/16 16:23 Intake and Output: 10/23/16 10/24/16 18:59 06:59 Intake Total 720 Balance 720 - Medications Medications: Current Medications Digoxin (Lanoxin) 0.25 mg PO 1400 [facility] Last Admin: 10/23/16 14:26 Dose: 0.25 mg Diltiazem HCl (Cardizem Cd) 180 mg PO DAILY [facility] Last Admin: 10/23/16 10:25 Dose: Not Given Famotidine (Pepcid) 40 mg PO HS [facility] Last Admin: 10/22/16 21:24 Dose: 40 mg Ferrous Sulfate (Feosol) 324 mg PO TID [facility] Last Admin: 10/23/16 17:28 Dose: 324 mg Folic Acid (Folic Acid) 1 mg PO DAILY [facility] Last Admin: 10/23/16 10:24 Dose: 1 mg Ibuprofen (Motrin Tab) 400 mg PO Q6H PRN PRN Reason: Pain, moderate (4-7) Last Admin: 10/20/16 03:44 Dose: 400 mg Levothyroxine Sodium (Synthroid) 25 mcg PO ACB [facility] Last Admin: 10/23/16 08:35 Dose: 25 mcg Lisinopril (Zestril) 2.5 mg PO DAILY [facility] Last Admin: 10/23/16 10:27 Dose: Not Given Loperamide HCl (Imodium) 2 mg PO QID PRN PRN Reason: Diarrhea Last Admin: 10/23/16 16:27 Dose: 2 mg Lorazepam (Ativan) 2 mg IVP Q3H PRN; Protocol PRN Reason: Anxiety Last Admin: 10/23/16 02:15 Dose: 2 mg Lorazepam (Ativan) 2 mg PO Q8 [facility] PRN Reason: Protocol Last Admin: 10/23/16 14:27 Dose: 2 mg Metoprolol Tartrate (Lopressor) 50 mg PO BID [facility] Last Admin: 10/23/16 17:41 Dose: Not Given Morphine Sulfate (Morphine) 4 mg IVP Q4H PRN PRN Reason: Pain, severe (8-10) Last Admin: 10/19/16 04:28 Dose: 4 mg Multivitamins/Minerals (Therapeutic-M Tab) 1 tab PO DAILY [facility] Last Admin: 10/23/16 10:24 Dose: 1 tab Ondansetron HCl (Zofran Inj) 4 mg IVP Q4 PRN PRN Reason: Nausea/Vomiting Last Admin: 10/22/16 20:57 Dose: 4 mg Oxycodone HCl (Oxycodone Immediate Release Tab) 5 mg PO Q6H PRN PRN Reason: Pain, moderate (4-7) Last Admin: 10/23/16 17:33 Dose: 5 mg Thiamine HCl (Vitamin B1 Tab) 100 mg PO DAILY [facility] Last Admin: 10/23/16 10:24 Dose: 100 mg Ziprasidone (Geodon Inj) 10 mg IM Q12H PRN; Protocol PRN Reason: Agitation Last Admin: 10/20/16 17:17 Dose: 10 mg - Labs Labs: 10/23/16 07:00 10/23/16 07:00 PT 12.0 Seconds (9.9-11.8) H 10/23/16 16:15 INR 1.11 (0.93-1.08) H 10/23/16 16:15 APTT 28.9 Seconds (23.7-30.8) 10/19/16 01:25 Attending/Attestation - Attestation I have personally seen and examined this patient.: Yes I have fully participated in the care of the patient.: Yes I have reviewed all pertinent clinical information, including history, physical exam and plan: Yes Notes (Text): 10/23/16 19:57 Patient seen and examined at bedside. Labs, vitals and orders reviewed. Agree with [facility] plan of care as outlined above by the resident
[2016-10-23 08:00] LABS: MAGNESIUM 1.8 mg/dL (1.7-2.2)
[2016-10-23 08:03] LABS: HEMOGLOBIN 11.1 gm/dL (14.0-18.0); MEAN CELL VOLUME 92.2 fL (80.0-105.0); MEAN CORPUSCULAR HEMOGLOBIN 31.1 pg (25.0-35.0); MEAN CORPUSCULAR HGB CONC 33.7 g/dl (31.0-37.0); MEAN PLATELET VOLUME 10.8 fl (7.0-11.0); PLATELET COUNT 81 10^3/uL (120.0-450.0); RBC 3.57 10^6/uL (3.5-6.1); RED CELL DISTRIBUTION WIDTH 17.9 % (11.5-14.5)
[2016-10-23 08:04] LABS: ALB/GLOB RATIO 0.9 (1.1-1.8); ALBUMIN 3.7 g/dL (3.0-4.8); ALT/SGPT 127 U/L (7-56); AST/SGOT 190 U/L (15-59); BLOOD UREA NITROGEN 18 mg/dL (7-21); GFR AFRICAN-AMERICAN > 60; GFR NON-AFRICAN AMERICAN > 60
[2016-10-23] MEDS: Levothyroxine 25 MCG TAB PO SCH (08:35)
[2016-10-23 09:11] LABS: ATYPICAL LYMPHOCYTE 2 % (0.0-0.0); BAND 5 % (0-2); EOSINOPHIL 1 % (0.0-3.0); LARGE PLATELETS PRESENT; LYMPHOCYTE 18 % (22.0-35.0); MONOCYTE 28 % (1.0-6.0); NEUTROPHIL 46 % (50.0-70.0); PLATELET ESTIMATE LOW (NORMAL)
[2016-10-23] MEDS: oxyCODONE 5 mg Immediate Release Tab PO PRN ×3 (10:20→23:02)
[2016-10-23] MEDS: Multivitamin With Minerals Tab PO SCH (10:24)
[2016-10-23] MEDS: diltiaZEM 180 mg/24 Hours CD Cap PO SCH (10:25)
[2016-10-23 10:45] LABS: BILIRUBIN,DIRECT 4.6 mg/dL (0.0-0.4)
--- NOTE | 2016-10-23 13:35 | CP.PCM.PN ---
<Evonne Page - Last Filed: 10/23/16 13:43> Subjective - Date & Time of Evaluation Date of Evaluation: 10/23/16 Time of Evaluation: 07:45 - Subjective Subjective: Patient seen and examined at bedside. Per nursing, no acute events overnight. Patient c/o multiple episodes of diarrhea. No other complaints at this time. Ambulating and tolerating diet. Denies headaches, dizziness, chest pain, sob, abdominal pain, nausea/vomiting, urinary symptoms. Objective - Vital Signs/Intake and Output Vital Signs (last 24 hours): Temp Pulse Resp BP Pulse Ox 98.3 F 98 H 20 101/62 97 10/23/16 08:00 10/23/16 08:00 10/23/16 08:00 10/23/16 10:27 10/23/16 08:00 Intake and Output: 10/23/16 10/23/16 06:59 18:59 Intake Total 2220 Balance 2220 - Medications Medications: Current Medications Digoxin (Lanoxin) 0.25 mg PO 1400 [facility] Last Admin: 10/22/16 15:36 Dose: 0.25 mg Diltiazem HCl (Cardizem Cd) 180 mg PO DAILY [facility] Last Admin: 10/23/16 10:25 Dose: Not Given Famotidine (Pepcid) 40 mg PO HS [facility] Last Admin: 10/22/16 21:24 Dose: 40 mg Ferrous Sulfate (Feosol) 324 mg PO TID [facility] Last Admin: 10/23/16 10:24 Dose: 324 mg Folic Acid (Folic Acid) 1 mg PO DAILY [facility] Last Admin: 10/23/16 10:24 Dose: 1 mg Ibuprofen (Motrin Tab) 400 mg PO Q6H PRN PRN Reason: Pain, moderate (4-7) Last Admin: 10/20/16 03:44 Dose: 400 mg Levothyroxine Sodium (Synthroid) 25 mcg PO ACB [facility] Last Admin: 10/23/16 08:35 Dose: 25 mcg Lisinopril (Zestril) 2.5 mg PO DAILY [facility] Last Admin: 10/23/16 10:27 Dose: Not Given Lorazepam (Ativan) 2 mg IVP Q3H PRN; Protocol PRN Reason: Anxiety Last Admin: 10/23/16 02:15 Dose: 2 mg Lorazepam (Ativan) 2 mg PO Q8 [facility] PRN Reason: Protocol Last Admin: 10/22/16 22:54 Dose: 2 mg Metoprolol Tartrate (Lopressor) 50 mg PO BID [facility] Last Admin: 10/23/16 10:26 Dose: Not Given Morphine Sulfate (Morphine) 4 mg IVP Q4H PRN PRN Reason: Pain, severe (8-10) Last Admin: 10/19/16 04:28 Dose: 4 mg Multivitamins/Minerals (Therapeutic-M Tab) 1 tab PO DAILY [facility] Last Admin: 10/23/16 10:24 Dose: 1 tab Ondansetron HCl (Zofran Inj) 4 mg IVP Q4 PRN PRN Reason: Nausea/Vomiting Last Admin: 10/22/16 20:57 Dose: 4 mg Oxycodone HCl (Oxycodone Immediate Release Tab) 5 mg PO Q6H PRN PRN Reason: Pain, moderate (4-7) Last Admin: 10/23/16 10:20 Dose: 5 mg Thiamine HCl (Vitamin B1 Tab) 100 mg PO DAILY [facility] Last Admin: 10/23/16 10:24 Dose: 100 mg Ziprasidone (Geodon Inj) 10 mg IM Q12H PRN; Protocol PRN Reason: Agitation Last Admin: 10/20/16 17:17 Dose: 10 mg - Labs Labs: 10/23/16 07:00 10/23/16 07:00 PT 11.2 Seconds (9.9-11.8) 10/19/16 01:25 INR 1.04 (0.93-1.08) 10/19/16 01:25 APTT 28.9 Seconds (23.7-30.8) 10/19/16 01:25 - Constitutional Appears: Non-toxic, No Acute Distress - Head Exam Head Exam: ATRAUMATIC, NORMAL INSPECTION - Eye Exam Eye Exam: EOMI, Scleral icterus Pupil Exam: NORMAL ACCOMODATION Additional comments: Ecchymosis improving L periorbital region - ENT Exam ENT Exam: Mucous Membranes Moist - Neck Exam Neck Exam: Full ROM - Respiratory Exam Respiratory Exam: Clear to Ausculation Bilateral, NORMAL BREATHING PATTERN. absent: Rales, Rhonchi, Wheezes - Cardiovascular Exam Cardiovascular Exam: REGULAR RHYTHM, +S1, +S2 - GI/Abdominal Exam GI & Abdominal Exam: Soft, Normal Bowel Sounds. absent: Guarding, Rigid, Tenderness - Extremities Exam Extremities Exam: Full ROM, Normal Inspection - Back Exam Back Exam: NORMAL INSPECTION - Neurological Exam Neurological Exam: Alert, Awake, Oriented x3 - Psychiatric Exam Psychiatric exam: Normal Affect, Normal Mood - Skin Skin Exam: Normal Color, Warm Assessment and Plan - Assessment and Plan (Free Text) Assessment: 51 year old male with a past medical history of paroxysmal AFib, tachy-viki syndrome s/p pacer, HTN, cardiomyopathy, alcohol abuse, and PUD, who presented to the ED complaining of left sided facial trauma after mechanical fall and found to be in A-fib with RVR Plan: 1. Mechanical Fall with sustained injuries as noted -CT head showed mild soft tissue swelling/hematoma of the left side of the scalp , soft tissue swelling of the left frontal scalp and periorbital region and no acute intracranial hemorrhage -CT MF showed angulation of the right nasal bone, with age indeterminant fracture of the left anterior nasal bone -Left Rib XRay showed fracture of the 6th rib, no pneumothorax, and old fracture of the 8th, 9th and 10th ribs -Pain control: Oxycodone 5mg Q6H prn pain Motrin 600mg Q6H prn pain -ENT consulted, no further interventions at this time, patient to follow up with them within 1-2 weeks -Continue Dressing changes -Cold compresses 2. Atrial Fibrillation with Rapid Ventricular Response -S/P Cardizem drip -Cardizem 180mg PO daily -Lopressor 50mg BID -Digoxin 0.25 mcg daily -Cardiology consulted, all recs appreciated 3. Alcohol Withdrawal, Hx Alcohol abuse -Reports last drink to be on 10/18 at approx. 1900 -Ativan 2mg q8H ALLIE, Ativan 2mg Q3H prn agitation -Geodon 10mg Q12H prn agitation -Continue multivitamins, folic acid, thiamine -CIWA protocols q4h, seizure, fall and aspiration precautions -F/U PT recommendations 4. Diarrhea -Infectious etiology unlikely -C diff negative, stool occult blood negative -Encourage PO hydration, monitor electrolytes -Continue to monitor 5. Pancytopenia, likely alcohol induced with bone marrow suppression -WBC 2.0, Platelets 81, slightly improving -Continue to monitor 6. Transaminitis -LFTs worsening (190/127) -Tbili 6.6 -> 6.9, f/u D bili -F/U abdominal US final read -GI consulted, f/u recommendations -Avoid hepatotoxins -CT abd/pelvis: distended, no gallbladder wall thickening or pericholecystic fluid, No evidence of stones, dilated ducts appreciated. Liver unremarkable. Nonvisualized appendix. A right-sided 1 cm calcification is noted - its origin appendix or extra appendiceal is not unknown 7. Hypomagnesemia - Continue to monitor 8. History of Hyponatremia -Continue to monitor CMPs 9. Hypothyroidism -Continue synthroid 10. Hypertension -Continue Zestril 11. GI/DVT Prophylaxis -Pepcid/scd's <Mk Kilpatrick - Last Filed: 10/23/16 19:59> Objective - Vital Signs/Intake and Output Vital Signs (last 24 hours): Temp Pulse Resp BP Pulse Ox 98.1 F 95 H 20 96/66 L 98 10/23/16 16:23 10/23/16 16:23 10/23/16 16:23 10/23/16 16:23 10/23/16 16:23 Intake and Output: 10/23/16 10/24/16 18:59 06:59 Intake Total 720 Balance 720 - Medications Medications: Current Medications Digoxin (Lanoxin) 0.25 mg PO 1400 [facility] Last Admin: 10/23/16 14:26 Dose: 0.25 mg Diltiazem HCl (Cardizem Cd) 180 mg PO DAILY [facility] Last Admin: 10/23/16 10:25 Dose: Not Given Famotidine (Pepcid) 40 mg PO HS [facility] Last Admin: 10/22/16 21:24 Dose: 40 mg Ferrous Sulfate (Feosol) 324 mg PO TID [facility] Last Admin: 10/23/16 17:28 Dose: 324 mg Folic Acid (Folic Acid) 1 mg PO DAILY [facility] Last Admin: 10/23/16 10:24 Dose: 1 mg Ibuprofen (Motrin Tab) 400 mg PO Q6H PRN PRN Reason: Pain, moderate (4-7) Last Admin: 10/20/16 03:44 Dose: 400 mg Levothyroxine Sodium (Synthroid) 25 mcg PO ACB [facility] Last Admin: 10/23/16 08:35 Dose: 25 mcg Lisinopril (Zestril) 2.5 mg PO DAILY [facility] Last Admin: 10/23/16 10:27 Dose: Not Given Loperamide HCl (Imodium) 2 mg PO QID PRN PRN Reason: Diarrhea Last Admin: 10/23/16 16:27 Dose: 2 mg Lorazepam (Ativan) 2 mg IVP Q3H PRN; Protocol PRN Reason: Anxiety Last Admin: 10/23/16 02:15 Dose: 2 mg Lorazepam (Ativan) 2 mg PO Q8 [facility] PRN Reason: Protocol Last Admin: 10/23/16 14:27 Dose: 2 mg Metoprolol Tartrate (Lopressor) 50 mg PO BID [facility] Last Admin: 10/23/16 17:41 Dose: Not Given Morphine Sulfate (Morphine) 4 mg IVP Q4H PRN PRN Reason: Pain, severe (8-10) Last Admin: 10/19/16 04:28 Dose: 4 mg Multivitamins/Minerals (Therapeutic-M Tab) 1 tab PO DAILY [facility] Last Admin: 10/23/16 10:24 Dose: 1 tab Ondansetron HCl (Zofran Inj) 4 mg IVP Q4 PRN PRN Reason: Nausea/Vomiting Last Admin: 10/22/16 20:57 Dose: 4 mg Oxycodone HCl (Oxycodone Immediate Release Tab) 5 mg PO Q6H PRN PRN Reason: Pain, moderate (4-7) Last Admin: 10/23/16 17:33 Dose: 5 mg Thiamine HCl (Vitamin B1 Tab) 100 mg PO DAILY [facility] Last Admin: 10/23/16 10:24 Dose: 100 mg Ziprasidone (Geodon Inj) 10 mg IM Q12H PRN; Protocol PRN Reason: Agitation Last Admin: 10/20/16 17:17 Dose: 10 mg - Labs Labs: 10/23/16 07:00 10/23/16 07:00 PT 12.0 Seconds (9.9-11.8) H 10/23/16 16:15 INR 1.11 (0.93-1.08) H 10/23/16 16:15 APTT 28.9 Seconds (23.7-30.8) 10/19/16 01:25 Attending/Attestation - Attestation I have personally seen and examined this patient.: Yes I have fully participated in the care of the patient.: Yes I have reviewed all pertinent clinical information, including history, physical exam and plan: Yes Notes (Text): 10/23/16 19:58 Patient renita dn examined at bedside. Overnight issues reviewed. Labs, vitals and notes reviewed including leukopenia and worsening transaminitis. He is much more awake and ambulatory, aware of surroundings. PT evaluation done today. Tolerating diet but had some diarrhea today. Agree with the remainder of plan as outlined by the resident. GI consulted, DCP 24-48 hours
[2016-10-23] MEDS: Digoxin 250 mcg (0.25 mg) Tab PO SCH (14:26)
--- NOTE | 2016-10-23 14:29 | US ---
HISTORY: worsening transaminitis with bilirubinemia COMPARISON: None. TECHNIQUE: Sonographic evaluation of the abdomen. FINDINGS: LIVER: Measures 16 x 15 cm. Increased echogenicity of the liver parenchyma. No mass. No intrahepatic bile duct dilatation. GALLBLADDER: Unremarkable. No gallstones. COMMON BILE DUCT: Measures 5 mm. No stones. No dilatation. PANCREAS: Not visualized RIGHT KIDNEY: Measures 10.54 x 6.41 x 5.98cm. Normal echogenicity. No calculus, mass, or hydronephrosis. LEFT KIDNEY: Measures 11.37 x 6.87 x 6.13cm. Normal echogenicity. No calculus, mass, or hydronephrosis. 2 cm cyst upper pole SPLEEN: Normal in size and contour. No mass. 13.25 x 6.69 AORTA: Not visualize IVC: Not visualize OTHER FINDINGS: None. IMPRESSION: Unremarkable abdominal sonogram.
[2016-10-23 16:32] LABS: INR 1.11 (0.93-1.08)
--- NOTE | 2016-10-23 20:27 | PN ---
DATE: 10/23/2016 SUBJECTIVE: The patient denies any headache or dizziness. PHYSICAL EXAMINATION VITAL SIGNS: Blood pressure 120/79, heart rate 98, temperature 98.3 and respirations 20. HEENT: Left periorbital ecchymosis. NECK: No JVD. CHEST: Clear. HEART: S1 and S2 regular. EXTREMITIES: No edema. LABORATORY DATA: Hemoglobin and hematocrit 11.1 and 32.9. White count and platelet count are 2.0 and 81,000 respectively. Today SMA-7 is within normal limit except for sodium of 130 and carbon dioxide of 20. . ASSESSMENT: 1. Dilated cardiomyopathy. 2. Chronic atrial fibrillation. 3. Status post ETOH intoxication. 4. Hyponatremia. RECOMMENDATIONS: Continue current Lopressor 50 mg b.i.d., mg once a day, Lanoxin 0.25 mg orally once a day, thiamine 100 mg once a day, Synthroid 25 mcg once a day, Restoril at 2.5 mg once a day, which was withheld today. The patient is not a suitable candidate for anticoagulation. Earle Patel MD
[2016-10-24 08:01] LABS: INR 1.06 (0.93-1.08); PROTHROMBIN TIME 11.4 Seconds (9.9-11.8)
[2016-10-24 08:14] LABS: BILIRUBIN,DIRECT 2.8 mg/dL (0.0-0.4); MAGNESIUM 1.7 mg/dL (1.7-2.2)
[2016-10-24] MEDS: Levothyroxine 25 MCG TAB PO SCH (08:20)
[2016-10-24] MEDS: oxyCODONE 5 mg Immediate Release Tab PO PRN ×3 (08:20→22:29)
[2016-10-24 08:26] LABS: HEPATITIS B SURFACE AG NEGATIVE (NEGATIVE)
[2016-10-24 08:32] LABS: HEPATITIS A IGM NEGATIVE (NEGATIVE); HEPATITIS B CORE AB NEGATIVE (NEGATIVE)
[2016-10-24 08:43] LABS: HEPATITIS C ANTIBODY NEGATIVE (NEGATIVE)
[2016-10-24 09:12] LABS: HEMOGLOBIN 10.5 gm/dL (14.0-18.0); MEAN CELL VOLUME 92.9 fL (80.0-105.0); MEAN CORPUSCULAR HEMOGLOBIN 31.2 pg (25.0-35.0); MEAN CORPUSCULAR HGB CONC 33.5 g/dl (31.0-37.0); MEAN PLATELET VOLUME 10.9 fl (7.0-11.0); PLATELET COUNT 84 10^3/uL (120.0-450.0); RBC 3.37 10^6/uL (3.5-6.1); RED CELL DISTRIBUTION WIDTH 17.6 % (11.5-14.5)
[2016-10-24 09:17] LABS: WHITE BLOOD COUNT 2.6 10^3/ul (4.5-11.0)
[2016-10-24 09:19] LABS: ALB/GLOB RATIO 0.9 (1.1-1.8); ALBUMIN 3.3 g/dL (3.0-4.8); ALT/SGPT 106 U/L (7-56); AST/SGOT 125 U/L (15-59); BLOOD UREA NITROGEN 11 mg/dL (7-21); CALCIUM 8.9 mg/dL (8.4-10.5); GFR AFRICAN-AMERICAN > 60; GFR NON-AFRICAN AMERICAN > 60
--- NOTE | 2016-10-24 09:57 | CP.PCM.CON ---
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 Patient notes alcohol withdrawal during first two days of admission leading to minimal oral intake. Patient notes improved diet overnight. No bowel movement for last two days but notes usual daily bowel habit without straining. Denies nausea, vomiting, hematemesis , diarrhea, heartburn, melena, hematochezia, or unintentional weight loss. Prior EGD 03/2015 due to melena showed erythema at gastric pouch, gastrojejunal anastamosis clean-based 6mm ulcer, and normal alimentary limb. No prior colonoscopy. Family- denies colon cancer, Father- Liver cancer Social- case of beer daily (24-pack) x20 years, denies illicit drug use Surgery- Sherry-en-Y complicated by two perforations, pacer Review of Systems - Review of Systems Review of Systems: 12-point review of systems negative except for as above Past Patient History - Infectious Disease Hx of Infectious Diseases: None - Tetanus Immunizations Tetanus Immunization: Unknown - Past Medical History & Family History Past Medical History?: Yes - Past Social History Smoking Status: Never Smoked - CARDIAC Hx Cardiac Disorders: Yes Hx Hypertension: Yes - PULMONARY Hx Chronic Obstructive Pulmonary Disease (COPD): No - NEUROLOGICAL HX Cerebrovascular Accident: No Hx Dizziness: Yes Hx Seizures: (pt denies) - HEENT Hx HEENT Problems: Yes (eyeglasses) Hx Blind: No Hx Cataracts: No Hx Deafness: No Hx Difficulty Chewing: No Hx Epistaxis: No Hx Glaucoma: No Hx Macular Degeneration: No Other/Comment: 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 related noise exposure - RENAL Hx Renal Failure: No - ENDOCRINE/METABOLIC Hx Diabetes Mellitus Type 1: No Hx Diabetes Mellitus Type 2: No Hx Hypothyroidism: No - HEMATOLOGICAL/ONCOLOGICAL Hx AIDS: No Hx Anemia: No Hx Cancer: No Hx Chemotherapy: No Hx Cirrhosis: No Hx Hemophilia: No Hx Hepatitis A: No Hx Hepatitis B: No Hx Hepatitis C: No Hx Metastesis: No Hx Shingles: No Hx Sickle Cell Disease: No Hx Unexplained Bleeding: No - INTEGUMENTARY Hx Dermatological Problems: No Hx Basil Cell: No Hx Eczema: No Hx Melanoma: No Hx Psoriasis: No Hx Squamous Cell: No Other/Comment: tatoos, bruise to left abd and rib area - MUSCULOSKELETAL/RHEUMATOLOGICAL Hx Falls: Yes (fell in bathroom last night at home) - GASTROINTESTINAL Hx Gastrointestinal Disorders: Yes Hx Colostomy: No Hx Crohn's Disease: No Hx Diverticulitis: No Hx Gall Bladder Disease: No Hx Gastroesophageal Reflux: Yes Hx Ileostomy: No Hx Liver Failure: No Hx Pancreatitis: No HX Swallowing Problems: No Other/Comment: perforated ulcer X2, had sx twice, rectal bleeding due to perforations - GENITOURINARY/GYNECOLOGICAL Hx Hematuria: No Hx Incontinence: No Hx Prostate Problems: No Hx Sexually Transmitted Disorders: No Hx Urinary Tract Infection: No - PSYCHIATRIC Hx Psychophysiologic Disorder: Yes (ETOH abuse drinks 1/2 to 1 case beer per day ) Hx Anxiety: No Hx Bipolar Disorder: No Hx Depression: No Hx Hallucinations: No Hx Panic Symptoms: No Hx Post Traumatic Stress Disorder: No Hx Psychosis: No Hx Schizophrenia: No Hx Sexual Abuse: No Hx Substance Use: (pt denies) Other/Comment: ETOH, drinks 1 case of beer a day, smokes a cigar "twice a year" , denies substance use - SURGICAL HISTORY Hx Amputation: No Hx Appendectomy: No Hx Cardiac Catheterization: No Hx Cholecystectomy: No Hx Coronary Stent: No Hx Gastric Bypass Surgery: Yes (around 10 yrs ago used to weigh 360 lbs) Hx Hysterectomy: No Hx Joint Replacement: No Hx Kidney Transplant: No Hx Liver Transplant: No Hx Mastectomy: No Hx Musculoskeletal Surgery: No Hx Open Heart Surgery: No Hx Orthopedic Surgery: No Hx Splenectomy: No Hx Valve Replacement: No - ANESTHESIA Hx Anesthesia: Yes Hx Anesthesia Reactions: No Hx Malignant Hyperthermia: No Meds Allergies/Adverse Reactions: Allergies Allergy/AdvReac Type Severity Reaction Status Date / Time No Known Allergies Allergy Verified 10/19/16 09:30 - Medications Medications: Current Medications Digoxin (Lanoxin) 0.25 mg PO 1400 [facility] Last Admin: 10/23/16 14:26 Dose: 0.25 mg Diltiazem HCl (Cardizem Cd) 180 mg PO DAILY [facility] Last Admin: 10/23/16 10:25 Dose: Not Given Diphenhydramine HCl (Benadryl) 50 mg PO HS PRN PRN Reason: Insomnia Last Admin: 10/24/16 01:20 Dose: 50 mg Famotidine (Pepcid) 40 mg PO HS [facility] Last Admin: 10/23/16 22:22 Dose: 40 mg Ferrous Sulfate (Feosol) 324 mg PO TID [facility] Last Admin: 10/23/16 17:28 Dose: 324 mg Folic Acid (Folic Acid) 1 mg PO DAILY [facility] Last Admin: 10/23/16 10:24 Dose: 1 mg Ibuprofen (Motrin Tab) 400 mg PO Q6H PRN PRN Reason: Pain, moderate (4-7) Last Admin: 10/20/16 03:44 Dose: 400 mg Levothyroxine Sodium (Synthroid) 25 mcg PO ACB [facility] Last Admin: 10/24/16 08:20 Dose: 25 mcg Lisinopril (Zestril) 2.5 mg PO DAILY [facility] Last Admin: 10/23/16 10:27 Dose: Not Given Loperamide HCl (Imodium) 2 mg PO QID PRN PRN Reason: Diarrhea Last Admin: 10/23/16 16:27 Dose: 2 mg Lorazepam (Ativan) 2 mg IVP Q3H PRN; Protocol PRN Reason: Anxiety Last Admin: 10/23/16 02:15 Dose: 2 mg Lorazepam (Ativan) 2 mg PO Q8 [facility] PRN Reason: Protocol Last Admin: 10/24/16 05:21 Dose: 2 mg Metoprolol Tartrate (Lopressor) 50 mg PO BID [facility] Last Admin: 10/23/16 17:41 Dose: Not Given Morphine Sulfate (Morphine) 4 mg IVP Q4H PRN PRN Reason: Pain, severe (8-10) Last Admin: 10/19/16 04:28 Dose: 4 mg Multivitamins/Minerals (Therapeutic-M Tab) 1 tab PO DAILY [facility] Last Admin: 10/23/16 10:24 Dose: 1 tab Ondansetron HCl (Zofran Inj) 4 mg IVP Q4 PRN PRN Reason: Nausea/Vomiting Last Admin: 10/22/16 20:57 Dose: 4 mg Oxycodone HCl (Oxycodone Immediate Release Tab) 5 mg PO Q6H PRN PRN Reason: Pain, moderate (4-7) Last Admin: 10/24/16 08:20 Dose: 5 mg Thiamine HCl (Vitamin B1 Tab) 100 mg PO DAILY [facility] Last Admin: 10/23/16 10:24 Dose: 100 mg Ziprasidone (Geodon Inj) 10 mg IM Q12H PRN; Protocol PRN Reason: Agitation Last Admin: 10/20/16 17:17 Dose: 10 mg Physical Exam - Constitutional Appears: Non-toxic, No Acute Distress - Head Exam Head Exam: ATRAUMATIC, NORMOCEPHALIC - Eye Exam Eye Exam: Normal appearance, Periorbital swelling, Periorbital tenderness, PERRL Pupil Exam: PERRL. absent: Miosis, Mydriatic - ENT Exam ENT Exam: Mucous Membranes Moist, Normal Oropharynx - Neck Exam Neck exam: Positive for: Full Rom, Normal Inspection - Respiratory Exam Respiratory Exam: Clear to Auscultation Bilateral. absent: Rales, Rhonchi, Wheezes - Cardiovascular Exam Cardiovascular Exam: RRR, +S1, +S2. absent: Gallop, Rubs - GI/Abdominal Exam GI & Abdominal Exam: Normal Bowel Sounds, Soft. absent: Distended, Firm, Guarding, Organomegaly, Rebound, Rigid, Tenderness - Extremities Exam Extremities exam: Positive for: normal inspection. Negative for: pedal edema - Neurological Exam Neurological exam: Alert - Psychiatric Exam Psychiatric exam: Normal Affect, Normal Mood - Skin Skin Exam: Dry, Intact, Warm Additional comments: left periorbital/left nasal bridge/left face with eechymosis/bruising Results - Vital Signs Recent Vital Signs: Last Vital Signs Temp 98.0 F 10/24/16 08:13 Pulse 68 10/24/16 08:13 Resp 20 10/24/16 08:13 BP 108/67 10/24/16 08:13 Pulse Ox 97 10/24/16 08:13 - Labs Result Diagrams: 10/24/16 09:07 10/24/16 09:07 Labs: Laboratory Results - last 24 hr 10/23/16 10/23/16 10/23/16 08:30 16:15 16:15 WBC RBC Hgb Hct MCV MCH MCHC RDW Plt Count MPV PT 12.0 H INR 1.11 H Sodium Potassium Chloride Carbon Dioxide Anion Gap BUN Creatinine Est GFR ( Amer) Est GFR (Non-Af Amer) Random Glucose Calcium Phosphorus Magnesium Total Bilirubin Direct Bilirubin 4.6 H AST ALT Alkaline Phosphatase Lactate Dehydrogenase 445 Total Protein Albumin Globulin Albumin/Globulin Ratio Hepatitis A IgM Ab Negative Hep Bs Antigen Negative Hep B Core IgM Ab Negative Hepatitis C Antibody Negative 10/24/16 10/24/16 10/24/16 07:35 07:35 09:07 WBC 2.6 L* D RBC 3.37 L Hgb 10.5 L Hct 31.3 L MCV 92.9 MCH 31.2 MCHC 33.5 RDW 17.6 H Plt Count 84 L MPV 10.9 PT 11.4 INR 1.06 Sodium Potassium Chloride Carbon Dioxide Anion Gap BUN Creatinine Est GFR ( Amer) Est GFR (Non-Af Amer) Random Glucose Calcium Phosphorus 3.2 Magnesium 1.7 Total Bilirubin Direct Bilirubin 2.8 H AST ALT Alkaline Phosphatase Lactate Dehydrogenase Total Protein Albumin Globulin Albumin/Globulin Ratio Hepatitis A IgM Ab Hep Bs Antigen Hep B Core IgM Ab Hepatitis C Antibody 10/24/16 09:07 WBC RBC Hgb Hct MCV MCH MCHC RDW Plt Count MPV PT INR Sodium 132 Potassium 4.1 Chloride 101 Carbon Dioxide 22 Anion Gap 13 BUN 11 Creatinine 0.6 Est GFR ( Amer) > 60 Est GFR (Non-Af Amer) > 60 Random Glucose 84 Calcium 8.9 Phosphorus Magnesium Total Bilirubin 4.7 H Direct Bilirubin AST 125 H ALT 106 H Alkaline Phosphatase 137 H Lactate Dehydrogenase Total Protein 6.8 Albumin 3.3 Globulin 3.5 Albumin/Globulin Ratio 0.9 L Hepatitis A IgM Ab Hep Bs Antigen Hep B Core IgM Ab Hepatitis C Antibody Assessment & Plan - Assessment and Plan (Free Text) Assessment: 51 year old male with history of alcohol abuse, ETOH Hepatitis, Biventricular systolic dysfunction and dilated cardiomyopathy, tachy-viki syndrome s/p pacer , Atrial fibrillation, upper GI bleed 03/2015, Sherry-en-Y bypass complicated by two perforations () presenting with fall leading to left nasal bone fracture. Gi consultation for elevated LFTs. Prior EGD 03/2015 due to melena showed erythema at gastric pouch, gastrojejunal anastamosis clean- based 6mm ulcer, and normal alimentary limb. No prior colonoscopy. Plan: >elevated LFTs in setting of alcohol abuse >U/S- hepatic steatosis >Hepatitis panel negative >ordered autoimmune workup >pancytopenia likely in setting of bone marrow suppression >supportive care: pain control, antiemetics, PPI >counselled on alcohol cessation <Oscar Kelley - Last Filed: 10/24/16 10:28> Meds - Medications Medications: Current Medications Digoxin (Lanoxin) 0.25 mg PO 1400 [facility] Last Admin: 10/23/16 14:26 Dose: 0.25 mg Diltiazem HCl (Cardizem Cd) 180 mg PO DAILY [facility] Last Admin: 10/23/16 10:25 Dose: Not Given Diphenhydramine HCl (Benadryl) 50 mg PO HS PRN PRN Reason: Insomnia Last Admin: 10/24/16 01:20 Dose: 50 mg Famotidine (Pepcid) 40 mg PO HS [facility] Last Admin: 10/23/16 22:22 Dose: 40 mg Ferrous Sulfate (Feosol) 324 mg PO TID [facility] Last Admin: 10/23/16 17:28 Dose: 324 mg Folic Acid (Folic Acid) 1 mg PO DAILY [facility] Last Admin: 10/23/16 10:24 Dose: 1 mg Ibuprofen (Motrin Tab) 400 mg PO Q6H PRN PRN Reason: Pain, moderate (4-7) Last Admin: 10/20/16 03:44 Dose: 400 mg Levothyroxine Sodium (Synthroid) 25 mcg PO ACB [facility] Last Admin: 10/24/16 08:20 Dose: 25 mcg Lisinopril (Zestril) 2.5 mg PO DAILY [facility] Last Admin: 10/23/16 10:27 Dose: Not Given Loperamide HCl (Imodium) 2 mg PO QID PRN PRN Reason: Diarrhea Last Admin: 10/23/16 16:27 Dose: 2 mg Lorazepam (Ativan) 2 mg IVP Q3H PRN; Protocol PRN Reason: Anxiety Last Admin: 10/23/16 02:15 Dose: 2 mg Lorazepam (Ativan) 2 mg PO Q8 [facility] PRN Reason: Protocol Last Admin: 10/24/16 05:21 Dose: 2 mg Metoprolol Tartrate (Lopressor) 50 mg PO BID [facility] Last Admin: 10/23/16 17:41 Dose: Not Given Morphine Sulfate (Morphine) 4 mg IVP Q4H PRN PRN Reason: Pain, severe (8-10) Last Admin: 10/19/16 04:28 Dose: 4 mg Multivitamins/Minerals (Therapeutic-M Tab) 1 tab PO DAILY [facility] Last Admin: 10/23/16 10:24 Dose: 1 tab Ondansetron HCl (Zofran Inj) 4 mg IVP Q4 PRN PRN Reason: Nausea/Vomiting Last Admin: 10/22/16 20:57 Dose: 4 mg Oxycodone HCl (Oxycodone Immediate Release Tab) 5 mg PO Q6H PRN PRN Reason: Pain, moderate (4-7) Last Admin: 10/24/16 08:20 Dose: 5 mg Thiamine HCl (Vitamin B1 Tab) 100 mg PO DAILY [facility] Last Admin: 10/23/16 10:24 Dose: 100 mg Ziprasidone (Geodon Inj) 10 mg IM Q12H PRN; Protocol PRN Reason: Agitation Last Admin: 10/20/16 17:17 Dose: 10 mg Results - Vital Signs Recent Vital Signs: Last Vital Signs Temp 98.0 F 10/24/16 08:13 Pulse 68 10/24/16 08:13 Resp 20 10/24/16 08:13 BP 108/67 10/24/16 08:13 Pulse Ox 97 10/24/16 08:13 - Labs Result Diagrams: 10/24/16 09:07 10/24/16 09:07 Labs: Laboratory Results - last 24 hr 10/23/16 10/23/16 10/23/16 08:30 16:15 16:15 WBC RBC Hgb Hct MCV MCH MCHC RDW Plt Count MPV Neutrophils % (Manual) Band Neutrophils % Lymphocytes % (Manual) Monocytes % (Manual) Platelet Evaluation Large Platelets Hypochromasia PT 12.0 H INR 1.11 H Sodium Potassium Chloride Carbon Dioxide Anion Gap BUN Creatinine Est GFR ( Amer) Est GFR (Non-Af Amer) Random Glucose Calcium Phosphorus Magnesium Total Bilirubin Direct Bilirubin 4.6 H AST ALT Alkaline Phosphatase Lactate Dehydrogenase 445 Total Protein Albumin Globulin Albumin/Globulin Ratio Hepatitis A IgM Ab Negative Hep Bs Antigen Negative Hep B Core IgM Ab Negative Hepatitis C Antibody Negative 10/24/16 10/24/16 10/24/16 07:35 07:35 09:07 WBC 2.6 L* D RBC 3.37 L Hgb 10.5 L Hct 31.3 L MCV 92.9 MCH 31.2 MCHC 33.5 RDW 17.6 H Plt Count 84 L MPV 10.9 Neutrophils % (Manual) 46 L Band Neutrophils % 2 Lymphocytes % (Manual) 28 Monocytes % (Manual) 24 H Platelet Evaluation Low Large Platelets Present Hypochromasia Slight PT 11.4 INR 1.06 Sodium Potassium Chloride Carbon Dioxide Anion Gap BUN Creatinine Est GFR ( Amer) Est GFR (Non-Af Amer) Random Glucose Calcium Phosphorus 3.2 Magnesium 1.7 Total Bilirubin Direct Bilirubin 2.8 H AST ALT Alkaline Phosphatase Lactate Dehydrogenase Total Protein Albumin Globulin Albumin/Globulin Ratio Hepatitis A IgM Ab Hep Bs Antigen Hep B Core IgM Ab Hepatitis C Antibody 10/24/16 09:07 WBC RBC Hgb Hct MCV MCH MCHC RDW Plt Count MPV Neutrophils % (Manual) Band Neutrophils % Lymphocytes % (Manual) Monocytes % (Manual) Platelet Evaluation Large Platelets Hypochromasia PT INR Sodium 132 Potassium 4.1 Chloride 101 Carbon Dioxide 22 Anion Gap 13 BUN 11 Creatinine 0.6 Est GFR ( Amer) > 60 Est GFR (Non-Af Amer) > 60 Random Glucose 84 Calcium 8.9 Phosphorus Magnesium Total Bilirubin 4.7 H Direct Bilirubin AST 125 H ALT 106 H Alkaline Phosphatase 137 H Lactate Dehydrogenase Total Protein 6.8 Albumin 3.3 Globulin 3.5 Albumin/Globulin Ratio 0.9 L Hepatitis A IgM Ab Hep Bs Antigen Hep B Core IgM Ab Hepatitis C Antibody Attending/Attestation - Attestation I have personally seen and examined this patient.: Yes I have fully participated in the care of the patient.: Yes I have reviewed all pertinent clinical information: Yes Notes (Text): 10/24/16 10:21 I have seen and examined patient with GI fellow. Agree with above documentation with the following additions. In brief, this is a 51 year old male with history of atrial fibrillation, CHF/dilated cardiomyopathy s/p PPM, gastric bypass surgery, anastomotic ulcer disease, ETOH abuse who presents to hospital with facial trauma in setting of ongoing ETOH abuse. GI called for evaluation of elevated LFTs. He notes several attempts at entering ETOH rehabilitation, though not successfully. He currently denies nausea, vomiting, fever/chills, weight loss, rectal bleeding, or change in bowel habits. He consumed his breakfast tray in entirety this morning. Atrial fibrillation CHF s/p PPM History of gastric bypass with anastomotic ulcer s/p fall with facial trauma Transaminitis in setting of ongoing ETOH abuse Abdominal US reviewed by me showing no focal hepatic lesions - LFTs stable, continue to monitor. Viral hepatitis panel negative. - Obtain autoimmune panel - Diet as tolerated - Continue with PPI therapy - ETOH cessation counseling again provided to patient - No planned inpatient GI intervention, suggest subsequent outpatient follow up after acute issues have resolved. Will sign off case, please reconsult as necessary, thank you.
[2016-10-24 10:00] LABS: BAND 2 % (0-2); LYMPHOCYTE 28 % (22.0-35.0); MONOCYTE 24 % (1.0-6.0); NEUTROPHIL 46 % (50.0-70.0)
[2016-10-24 10:01] LABS: HYPOCHROMIA SLIGHT; LARGE PLATELETS PRESENT; PLATELET ESTIMATE LOW (NORMAL)
[2016-10-24] MEDS: diltiaZEM 180 mg/24 Hours CD Cap PO SCH (10:55)
[2016-10-24] MEDS: Multivitamin With Minerals Tab PO SCH (10:56)
--- NOTE | 2016-10-24 12:05 | CP.PCM.PN ---
<Evonne Page - Last Filed: 10/24/16 12:12> Subjective - Date & Time of Evaluation Date of Evaluation: 10/24/16 Time of Evaluation: 07:30 - Subjective Subjective: Patient seen and examined at bedside. Per nursing no acute events overnight. Patient less confused today, diarrhea improving, still having some abdominal pain. Reports having blurry vision in the L eye, worse in the morning. Denies headaches, dizziness, cp, sob, urinary symptoms. Objective - Vital Signs/Intake and Output Vital Signs (last 24 hours): Temp Pulse Resp BP Pulse Ox 98.0 F 68 20 108/67 97 10/24/16 08:13 10/24/16 10:56 10/24/16 08:13 10/24/16 10:56 10/24/16 08:13 Intake and Output: 10/24/16 10/24/16 06:59 18:59 Intake Total 1020 260 Output Total 200 Balance 820 260 - Medications Medications: Current Medications Digoxin (Lanoxin) 0.25 mg PO 1400 [facility] Last Admin: 10/23/16 14:26 Dose: 0.25 mg Diltiazem HCl (Cardizem Cd) 180 mg PO DAILY [facility] Last Admin: 10/24/16 10:55 Dose: 180 mg Diphenhydramine HCl (Benadryl) 50 mg PO HS PRN PRN Reason: Insomnia Last Admin: 10/24/16 01:20 Dose: 50 mg Famotidine (Pepcid) 40 mg PO HS [facility] Last Admin: 10/23/16 22:22 Dose: 40 mg Ferrous Sulfate (Feosol) 324 mg PO TID [facility] Last Admin: 10/24/16 10:54 Dose: 324 mg Folic Acid (Folic Acid) 1 mg PO DAILY [facility] Last Admin: 10/24/16 10:54 Dose: 1 mg Ibuprofen (Motrin Tab) 400 mg PO Q6H PRN PRN Reason: Pain, moderate (4-7) Last Admin: 10/20/16 03:44 Dose: 400 mg Levothyroxine Sodium (Synthroid) 25 mcg PO ACB [facility] Last Admin: 10/24/16 08:20 Dose: 25 mcg Lisinopril (Zestril) 2.5 mg PO DAILY [facility] Last Admin: 10/24/16 10:56 Dose: 2.5 mg Loperamide HCl (Imodium) 2 mg PO QID PRN PRN Reason: Diarrhea Last Admin: 10/23/16 16:27 Dose: 2 mg Lorazepam (Ativan) 2 mg IVP Q3H PRN; Protocol PRN Reason: Anxiety Last Admin: 10/23/16 02:15 Dose: 2 mg Lorazepam (Ativan) 2 mg PO Q8 ALLIE PRN Reason: Protocol Last Admin: 10/24/16 05:21 Dose: 2 mg Metoprolol Tartrate (Lopressor) 50 mg PO BID [facility] Last Admin: 10/24/16 10:55 Dose: 50 mg Morphine Sulfate (Morphine) 4 mg IVP Q4H PRN PRN Reason: Pain, severe (8-10) Last Admin: 10/19/16 04:28 Dose: 4 mg Multivitamins/Minerals (Therapeutic-M Tab) 1 tab PO DAILY [facility] Last Admin: 10/24/16 10:56 Dose: 1 tab Ondansetron HCl (Zofran Inj) 4 mg IVP Q4 PRN PRN Reason: Nausea/Vomiting Last Admin: 10/22/16 20:57 Dose: 4 mg Oxycodone HCl (Oxycodone Immediate Release Tab) 5 mg PO Q6H PRN PRN Reason: Pain, moderate (4-7) Last Admin: 10/24/16 08:20 Dose: 5 mg Thiamine HCl (Vitamin B1 Tab) 100 mg PO DAILY [facility] Last Admin: 10/24/16 10:54 Dose: 100 mg Ziprasidone (Geodon Inj) 10 mg IM Q12H PRN; Protocol PRN Reason: Agitation Last Admin: 10/20/16 17:17 Dose: 10 mg - Labs Labs: 10/24/16 09:07 10/24/16 09:07 PT 11.4 Seconds (9.9-11.8) 10/24/16 07:35 INR 1.06 (0.93-1.08) 10/24/16 07:35 APTT 28.9 Seconds (23.7-30.8) 10/19/16 01:25 - Constitutional Appears: Non-toxic, No Acute Distress - Head Exam Head Exam: ATRAUMATIC, NORMAL INSPECTION - Eye Exam Eye Exam: EOMI, Scleral icterus Pupil Exam: NORMAL ACCOMODATION Additional comments: Eccymosis in L periorbital region - ENT Exam ENT Exam: Mucous Membranes Moist - Neck Exam Neck Exam: Full ROM - Respiratory Exam Respiratory Exam: Clear to Ausculation Bilateral, NORMAL BREATHING PATTERN. absent: Rales, Rhonchi, Wheezes - Cardiovascular Exam Cardiovascular Exam: REGULAR RHYTHM, +S1, +S2. absent: Tachycardia - GI/Abdominal Exam GI & Abdominal Exam: Soft, Tenderness, Normal Bowel Sounds. absent: Guarding, Rigid Additional comments: Mild LLQ pain Ecchymosis noted on L flank, slightly larger Assessment and Plan - Assessment and Plan (Free Text) Assessment: 51 year old male with a past medical history of paroxysmal AFib, tachy-viki syndrome s/p pacer, HTN, cardiomyopathy, alcohol abuse, and PUD, who presented to the ED complaining of left sided facial trauma after mechanical fall and found to be in A-fib with RVR Plan: 1. Mechanical Fall with sustained injuries as noted -CT head showed mild soft tissue swelling/hematoma of the left side of the scalp , soft tissue swelling of the left frontal scalp and periorbital region and no acute intracranial hemorrhage -CT MF showed angulation of the right nasal bone, with age indeterminant fracture of the left anterior nasal bone -Left Rib XRay showed fracture of the 6th rib, no pneumothorax, and old fracture of the 8th, 9th and 10th ribs -Pain control: Oxycodone 5mg Q6H prn pain Motrin 600mg Q6H prn pain -ENT consulted, no further interventions at this time, patient to follow up with them within 1-2 weeks -Patient c/o blurry vision, will consult optho -Cold compresses prn 2. Atrial Fibrillation with Rapid Ventricular Response -S/P Cardizem drip -Cardizem 180mg PO daily -Lopressor 50mg BID -Digoxin 0.25 mcg daily -Cardiology consulted, all recs appreciated 3. Alcohol Withdrawal, Hx Alcohol abuse -Reports last drink to be on 10/18 at approx. 1900 -Ativan 2mg q8H ALLIE, Ativan 2mg Q3H prn agitation -Geodon 10mg Q12H prn agitation -Continue multivitamins, folic acid, thiamine -CIWA protocols q4h, seizure, fall and aspiration precautions -F/U PT recommendations 4. Diarrhea -Infectious etiology unlikely -C diff negative, stool occult blood negative -Encourage PO hydration, monitor electrolytes -Started on Imodium yesterday, reports diarrhea resolved -Continue to monitor 5. Pancytopenia, likely alcohol induced with bone marrow suppression -WBC 2.6, Platelets 84, slightly improving -Continue to monitor 6. Transaminitis -LFTs improving (125/106) -D bili trending down -ABD US showing hepatic steatosis -Hep panel negative -Follow up autoimmune workup -GI consulted, f/u recommendations -Continue to avoid hepatotoxins 7. Hypomagnesemia - Continue to monitor 8. History of Hyponatremia -Continue to monitor CMPs 9. Hypothyroidism -Continue Synthroid 10. Hypertension -Continue Zestril 11. GI/DVT Prophylaxis -Pepcid/scd's Evonne Page PGY-1 <Shania Garcia - Last Filed: 10/24/16 15:50> Objective - Vital Signs/Intake and Output Vital Signs (last 24 hours): Temp Pulse Resp BP Pulse Ox 98.0 F 68 20 108/67 97 10/24/16 08:13 10/24/16 10:56 10/24/16 08:13 10/24/16 10:56 10/24/16 08:13 Intake and Output: 10/24/16 10/24/16 06:59 18:59 Intake Total 1020 520 Output Total 200 Balance 820 520 - Medications Medications: Current Medications Digoxin (Lanoxin) 0.25 mg PO 1400 [facility] Last Admin: 10/24/16 15:04 Dose: 0.25 mg Diltiazem HCl (Cardizem Cd) 180 mg PO DAILY [facility] Last Admin: 10/24/16 10:55 Dose: 180 mg Diphenhydramine HCl (Benadryl) 50 mg PO HS PRN PRN Reason: Insomnia Last Admin: 10/24/16 01:20 Dose: 50 mg Famotidine (Pepcid) 40 mg PO HS [facility] Last Admin: 10/23/16 22:22 Dose: 40 mg Ferrous Sulfate (Feosol) 324 mg PO TID [facility] Last Admin: 10/24/16 15:00 Dose: 324 mg Folic Acid (Folic Acid) 1 mg PO DAILY [facility] Last Admin: 10/24/16 10:54 Dose: 1 mg Ibuprofen (Motrin Tab) 400 mg PO Q6H PRN PRN Reason: Pain, moderate (4-7) Last Admin: 10/20/16 03:44 Dose: 400 mg Levothyroxine Sodium (Synthroid) 25 mcg PO ACB [facility] Last Admin: 10/24/16 08:20 Dose: 25 mcg Lisinopril (Zestril) 2.5 mg PO DAILY [facility] Last Admin: 10/24/16 10:56 Dose: 2.5 mg Loperamide HCl (Imodium) 2 mg PO QID PRN PRN Reason: Diarrhea Last Admin: 10/23/16 16:27 Dose: 2 mg Lorazepam (Ativan) 2 mg IVP Q3H PRN; Protocol PRN Reason: Anxiety Last Admin: 10/23/16 02:15 Dose: 2 mg Lorazepam (Ativan) 2 mg PO Q8 [facility]IE PRN Reason: Protocol Last Admin: 10/24/16 15:00 Dose: 2 mg Metoprolol Tartrate (Lopressor) 50 mg PO BID [facility] Last Admin: 10/24/16 10:55 Dose: 50 mg Morphine Sulfate (Morphine) 4 mg IVP Q4H PRN PRN Reason: Pain, severe (8-10) Last Admin: 10/19/16 04:28 Dose: 4 mg Multivitamins/Minerals (Therapeutic-M Tab) 1 tab PO DAILY [facility] Last Admin: 10/24/16 10:56 Dose: 1 tab Ondansetron HCl (Zofran Inj) 4 mg IVP Q4 PRN PRN Reason: Nausea/Vomiting Last Admin: 10/22/16 20:57 Dose: 4 mg Oxycodone HCl (Oxycodone Immediate Release Tab) 5 mg PO Q6H PRN PRN Reason: Pain, moderate (4-7) Last Admin: 10/24/16 08:20 Dose: 5 mg Thiamine HCl (Vitamin B1 Tab) 100 mg PO DAILY [facility] Last Admin: 10/24/16 10:54 Dose: 100 mg Ziprasidone (Geodon Inj) 10 mg IM Q12H PRN; Protocol PRN Reason: Agitation Last Admin: 10/20/16 17:17 Dose: 10 mg - Labs Labs: 10/24/16 09:07 10/24/16 09:07 PT 11.4 Seconds (9.9-11.8) 10/24/16 07:35 INR 1.06 (0.93-1.08) 10/24/16 07:35 APTT 28.9 Seconds (23.7-30.8) 10/19/16 01:25 Attending/Attestation - Attestation I have personally seen and examined this patient.: Yes I have fully participated in the care of the patient.: Yes I have reviewed all pertinent clinical information, including history, physical exam and plan: Yes Notes (Text): 10/24/16 15:46 51 year old male with past medical history of paroxysmal afib, tachy-viki syndrome s/p pacemaker, cardiomyopathy, hypertension and chronic ETOH abuse who presented after fall at home with left sided facial trauma. CT head/maxillofacial showed mild soft tissue swelling/hematoma of the left side of the scalp, soft tissue swelling of the left frontal scalp and periorbital region and no acute intracranial hemorrhage and angulation of the right nasal bone, with age indeterminant fracture of the left anterior nasal bone. ENT evaluation was appreciated who recommended outpatient follow up. He also has left rib fractures on CXR. Continue with analgesics for pain. He is complaining of left sides blurred vision; ophthalmology evaluation is requested. In ER he developed Afib with RVR and started on cardizem drip. HR is now better controlled and he is currently he is on metoprolo, cardizem and digoxin. Cardiology is following the patient. He is not a candidate for anticoagulation due to history of noncompliance, chronic etoh abuse and falls. He is ativan for alcohol withdrawal. He is on multivitamin, folic acid and thiamine. He was counselled on alcohol abstinence. Continue with physical therapy. He has elevated LFT and pancytopenia likely secondary to chronic ETOH abuse. We will continue to monitor. Labs are improving. GI evaluation was appreciated. He is on synthroid for history of hypothyroidism. Shania Garcia MD Hospitalist.
--- NOTE | 2016-10-24 13:10 | PN ---
DATE: SUBJECTIVE: The patient denies any dizziness, history of some blurry vision in left eye. PHYSICAL EXAMINATION: VITAL SIGNS: Blood pressure 108/67, heart rate of 58, temperature 98%, and respiration 20. HEENT: Left periorbital ecchymosis. CHEST: Clear. HEART: S1 and S2 regular. EXTREMITIES: No pedal edema. LABORATORY DATA: Hemoglobin and hematocrit 10.5 and 31.3. White count and platelet count are 2.6 and 84,000 normal limits. ASSESSMENT: 1. Dilated cardiomyopathy. 2. Chronic atrial fibrillation. 3. Status post fall. 4. Status post alcohol intoxication. 5. Leukopenia. 6. Thrombocytopenia. RECOMMENDATION: Continue current Cardizem CD 180 mg once a day, Fioricet one table t.i.d., digoxin 0.25 mg once a day, Lopressor 50 mg twice a day, Zestril 2.5 mg once a day, I discussed the case with the medical team and I recommended Ophthalmology evaluation for the left eye. Earle Patel MD
[2016-10-24] MEDS: Digoxin 250 mcg (0.25 mg) Tab PO SCH (15:04)
[2016-10-24 15:06] VITALS: PULSE 68
[2016-10-24 17:18] VITALS: O2SAT 100
[2016-10-25] MEDS: oxyCODONE 5 mg Immediate Release Tab PO PRN ×2 (04:37→10:36)
[2016-10-25 08:05] VITALS: TEMP 98.2
[2016-10-25] MEDS: Levothyroxine 25 MCG TAB PO SCH (08:36)
[2016-10-25 08:42] LABS: HEMOGLOBIN 11.6 g/dL (14.0-18.0); MEAN CELL VOLUME 92.6 fl (80.0-105.0); MEAN CORPUSCULAR HEMOGLOBIN 31.7 pg (25.0-35.0); MEAN CORPUSCULAR HGB CONC 34.2 g/dl (31.0-37.0); MEAN PLATELET VOLUME 9.9 fl (7.0-11.0); PLATELET COUNT 125 10^3/uL (120.0-450.0); RBC 3.66 10^6/uL (3.5-6.1); RED CELL DISTRIBUTION WIDTH 17.2 % (11.5-14.5); WHITE BLOOD COUNT 3.2 10^3/ul (4.5-11.0)
[2016-10-25 08:54] LABS: ALBUMIN 3.8 g/dL (3.0-4.8); ALT/SGPT 119 U/L (7-56); AST/SGOT 143 U/L (15-59); BLOOD UREA NITROGEN 10 mg/dL (7-21); CALCIUM 9.1 mg/dL (8.4-10.5); GFR AFRICAN-AMERICAN > 60; GFR NON-AFRICAN AMERICAN > 60; MAGNESIUM 1.8 mg/dL (1.7-2.2)
[2016-10-25 09:14] LABS: ANISOCYTOSIS SLIGHT; BASOPHIL 1 % (0.0-1.0); EOSINOPHIL 2 % (0.0-3.0); GIANT PLATELETS PRESENT; LYMPHOCYTE 33 % (22.0-35.0); MONOCYTE 14 % (1.0-6.0); NEUTROPHIL 50 % (50.0-70.0)
[2016-10-25] MEDS: diltiaZEM 180 mg/24 Hours CD Cap PO SCH (10:35)
[2016-10-25] MEDS: Multivitamin With Minerals Tab PO SCH (10:37)
[2016-10-25 10:39] VITALS: BP 121/69; PULSE 66
--- NOTE | 2016-10-25 10:44 | CP.PCM.DIS ---
<Evonne Page - Last Filed: 10/25/16 14:46> Provider - Provider Date of Admission: 10/19/16 02:27 Attending physician: Shania Garcia MD Primary care physician: Yovany Arellano MD Consults: GI: Benji Opthomology: Jos ENT: Danay Cardio: Amanda Time Spent in preparation of Discharge (in minutes): 40 Hospital Course - Lab Results Lab Results: Micro Results 10/23/16 06:45 Stool C. difficile Antigen & Toxin A,B (M - Final Most Recent Lab Values WBC 3.2 10^3/ul (4.5-11.0) L D 10/25/16 08:30 RBC 3.66 10^6/uL (3.5-6.1) 10/25/16 08:30 Hgb 11.6 g/dL (14.0-18.0) L 10/25/16 08:30 Hct 33.9 % (42.0-52.0) L 10/25/16 08:30 MCV 92.6 fl (80.0-105.0) 10/25/16 08:30 MCH 31.7 pg (25.0-35.0) 10/25/16 08:30 MCHC 34.2 g/dl (31.0-37.0) 10/25/16 08:30 RDW 17.2 % (11.5-14.5) H 10/25/16 08:30 Plt Count 125 10^3/uL (120.0-450.0) 10/25/16 08:30 MPV 9.9 fl (7.0-11.0) 10/25/16 08:30 Gran % 62.3 % (50.0-68.0) 10/22/16 07:18 Lymph % (Auto) 15.7 % (22.0-35.0) L 10/22/16 07:18 Stephenson % (Auto) 22.0 % (1.0-6.0) H 10/22/16 07:18 Eos % (Auto) 0.0 % (1.5-5.0) L 10/22/16 07:18 Baso % (Auto) 0.0 % (0.0-3.0) 10/22/16 07:18 Gran # 1.39 (1.4-6.5) L 10/22/16 07:18 Lymph # 0.4 (1.2-3.4) L 10/22/16 07:18 Stephenson # 0.5 (0.1-0.6) 10/22/16 07:18 Eos # 0.0 (0.0-0.7) 10/22/16 07:18 Baso # 0.00 K/mm3 (0.0-2.0) 10/22/16 07:18 Neutrophils % (Manual) 50 % (50.0-70.0) 10/25/16 08:30 Band Neutrophils % 2 % (0-2) 10/24/16 09:07 Lymphocytes % (Manual) 33 % (22.0-35.0) 10/25/16 08:30 Atypical Lymphs % 2 % (0.0-0.0) H 10/23/16 07:00 Monocytes % (Manual) 14 % (1.0-6.0) H 10/25/16 08:30 Eosinophils % (Manual) 2 % (0.0-3.0) 10/25/16 08:30 Basophils % (Manual) 1 % (0.0-1.0) 10/25/16 08:30 Platelet Evaluation Low (NORMAL) 10/24/16 09:07 Large Platelets Present 10/24/16 09:07 Giant Platelets Present 10/25/16 08:30 Hypochromasia Slight 10/24/16 09:07 Anisocytosis (manual) Slight 10/25/16 08:30 PT 11.4 Seconds (9.9-11.8) 10/24/16 07:35 INR 1.06 (0.93-1.08) 10/24/16 07:35 APTT 28.9 Seconds (23.7-30.8) 10/19/16 01:25 Sodium 133 mmol/L (132-148) 10/25/16 08:00 Potassium 4.0 mmol/L (3.6-5.0) 10/25/16 08:00 Chloride 100 mmol/L (98-107) 10/25/16 08:00 Carbon Dioxide 23 mmol/L (21-33) 10/25/16 08:00 Anion Gap 14 (10-20) 10/25/16 08:00 BUN 10 mg/dL (7-21) 10/25/16 08:00 Creatinine 0.6 mg/dL (0.5-1.4) 10/25/16 08:00 Est GFR ( Amer) > 60 10/25/16 08:00 Est GFR (Non-Af Amer) > 60 10/25/16 08:00 Random Glucose 93 mg/dL (70-110) 10/25/16 08:00 Calcium 9.1 mg/dL (8.4-10.5) 10/25/16 08:00 Phosphorus 3.8 mg/dL (2.5-4.5) 10/25/16 08:00 Magnesium 1.8 mg/dL (1.7-2.2) 10/25/16 08:00 Total Bilirubin 3.7 mg/dL (0.2-1.3) H 10/25/16 08:00 Direct Bilirubin 2.8 mg/dL (0.0-0.4) H 10/24/16 07:35 AST 143 U/L (15-59) H 10/25/16 08:00 ALT 119 U/L (7-56) H 10/25/16 08:00 Alkaline Phosphatase 146 U/L (38-133) H 10/25/16 08:00 Lactate Dehydrogenase 445 U/L (333-699) 10/23/16 08:30 Total Creatine Kinase 178 U/L (35-230) 10/19/16 03:15 Troponin I < 0.01 ng/mL 10/19/16 03:15 Total Protein 7.6 g/dL (5.8-8.3) 10/25/16 08:00 Albumin 3.8 g/dL (3.0-4.8) 10/25/16 08:00 Globulin 3.8 gm/dL 10/25/16 08:00 Albumin/Globulin Ratio 1.0 (1.1-1.8) L 10/25/16 08:00 Lipase 71 U/L (23-300) 10/23/16 07:00 TSH 3rd Generation 5.73 mIU/mL (0.46-4.68) H 10/19/16 03:15 Stool Occult Blood Negative (NEGATIVE) 10/23/16 06:45 Digoxin 0.8 ng/mL (0.8-2.0) 10/22/16 07:18 Alcohol, Quantitative 145 mg/dL (0-10) H 10/19/16 03:15 Hepatitis A IgM Ab Negative (NEGATIVE) 10/23/16 16:15 Hep Bs Antigen Negative (NEGATIVE) 10/23/16 16:15 Hep B Core IgM Ab Negative (NEGATIVE) 10/23/16 16:15 Hepatitis C Antibody Negative (NEGATIVE) 10/23/16 16:15 - Hospital Course Hospital Course: Mr. Ybarra is a 51 year old male with a pmhx of paroxysmal AFib, tachy-viki syndrome s/p pacer, HTN, cardiomyopathy, alcohol abuse, and PUD, who presented to the ED complaining of left sided facial trauma after mechanical fall today. He states that he has tile floors at home and as he was getting out of the shower, he slipped, fell and hit his head on the floor. He denies visual changes , LOC, vertigo or instability prior to or after the fall but does admit to drinking "his average" daily amount of alcohol. States last drink was 10/18 at approx 19:00. Patient reports that he also hasn't had a headache since his fall but does have pain from the lacerations he received. In the ED, a CT head showed a hematoma to the L scalp and L periorbital swelling but no intracranial bleed. A CT MF showed angulation of R nasal bone and an age indeterminant fracture of L anterior nasal bone, but patient notes this fracture to be sustained previously. An Xray of his ribs showed an acute fracture of the L 6th rib and old fractures to L ribs 8, 9 and 10. An EKG showed patient to be in atrial fibrillation with rapid ventricular response and he was started on cardizem drip. Lacerations were sutured in the ED. Patient was admitted for afib with RVR, alcohol withdrawal, s/p mechanical fall. Patient was monitored on telemetry. Cardiology was consulted and on the case. Patient was initially on cardize, drip. When HR stabilized patient was transitioned to long acting PO cardizem. The dose of Digoxin was increased. For hypothyroidism, synthroid was continued. For HTN, metoprolol and lisinopril was continued. Patient was also being treated for alcohol withdrawal. Due to liver function, patient was started on an Ativan taper and a banana bag. CIWA protocols, seizure, fall and aspiration precautions were in place. During the hospitalization patient was agitated which would require prn ativan and/or geodon. Patient was also on a 1:1 sitter for closer monitoring. As withdrawal symptoms started with resolve, patient was transitioned to PO folic acid, multivitamins, thiamine and ativan was tapered, 1:1 sitter was also discontinued. During the admission, patient was complaining of watery diarrhea. C diff was negative, stool occult was negative. Patient was started on Imodium which relieved symptoms. Patient was found to be pancytopenic during admission. This is likely 2/2 alcohol induced bone marrow suppression. Labs were monitored. Patient had hypomagnemia, mg was repleated as needed. GI was consulted for transaminits and hyperbilirubinemia, abdominal US showed hepatic steatosis. CT abd/pelvis showed right sided 1 cm calcification in close proximity of the appendix. Hepatitis panel was negative. GI recommended autoimmune workup. Patient will need to have work up done as an outpatient. ENT was consulted for the fractured nasal bone, they recommended patient follow up with ENT clinic in 1-2 weeks. Opthomology was also consulted for blurry vision. Patient instructed to call the office for an outpatient appointment this week. PT evaluated the patient on 10/23 and recommended TCU for discharge. I personally walked with the patient today. Gait is stable, patient is able to ambulate on his own with no assistance. Patient also reports that he feels steady on his feet. Negative rhomberg/heel to abdi test. Will discharge the patient home. On day of discharge, sutures were removed at the bedside. Patient was medically stable. He was ambulating and tolerating diet. Patient was AAOx3. Denies any visual/auditory hallucinations. Tremors improved. Patient instructed to continue cardizem, digoxin, metoprolol as prescribed and motrin prn. Patient extensively counseled on importance of alcohol cessation. Reports that he will stop drinking and that he is looking into going to rehab. All questions and concerns were addressed. Discharge Exam - Head Exam Head Exam: ATRAUMATIC, NORMAL INSPECTION - Eye Exam Eye Exam: EOMI, Scleral icterus Pupil Exam: NORMAL ACCOMODATION Additional comments: Improving ecchymosis in the L periorbital region Sutures in the L tempal and forehead intact - ENT Exam ENT Exam: Mucous Membranes Moist - Neck Exam Neck exam: Full Rom - Respiratory Exam Respiratory Exam: Clear to PA & Lateral, NORMAL BREATHING PATTERN. absent: Rales, Rhonchi, Wheezes - Cardiovascular Exam Cardiovascular Exam: REGULAR RHYTHM, +S1, +S2 - GI/Abdominal Exam GI & Abdominal Exam: Normal Bowel Sounds, Soft, Tenderness. absent: Firm, Guarding, Rebound Additional comments: Ecchymosis noted on L flank - Extremities Exam Extremities exam: normal capillary refill, pedal pulses present - Back Exam Back exam: NORMAL INSPECTION - Neurological Exam Neurological exam: Alert, CN II-XII Intact, Oriented x3 - Psychiatric Exam Psychiatric exam: Normal Affect, Normal Mood - Skin Skin Exam: Normal Color, Warm Discharge Plan - Discharge Medications Prescriptions: Digoxin 250 mcg PO DAILY #30 tablet diltiaZEM CD [Cardizem CD] 180 mg PO DAILY #30 c24 Ibuprofen [Motrin Tab] 800 mg PO TID PRN #20 tab PRN Reason: Pain, Severe (8-10) Metoprolol Tartrate [Lopressor] 50 mg PO BID #60 tab - Follow Up Plan Condition: STABLE Disposition: HOME/ ROUTINE Instructions: Laceration (ED), Heart Healthy Diet (DC), Rib Fracture (ED), Cigarette Smoking and Your Health (GEN), Head Injury (ED), Abuse of Alcohol (GEN ), Fall Prevention (DC) Additional Instructions: Patient is clear for discharge home. Patient given prescriptions for Digoxin, Cardizem, Metoprolol, and Motrin. Patient to make an appointment with Dr Arguello to be seen this week. Patient to follow up with ENT clinic within 1-2 weeks. Patient to follow up with PCP and Cardio within 1 weeks. Referrals: Yovnay Arellano MD [Primary Care Provider] - Follow up with primary <Shania Garcia - Last Filed: 10/25/16 15:01> Provider - Provider Date of Admission: 10/19/16 02:27 Attending physician: Shania Garcia MD Primary care physician: Yovany Arellano MD Hospital Course - Lab Results Lab Results: Micro Results 10/23/16 06:45 Stool C. difficile Antigen & Toxin A,B (M - Final Most Recent Lab Values WBC 3.2 10^3/ul (4.5-11.0) L D 10/25/16 08:30 RBC 3.66 10^6/uL (3.5-6.1) 10/25/16 08:30 Hgb 11.6 g/dL (14.0-18.0) L 10/25/16 08:30 Hct 33.9 % (42.0-52.0) L 10/25/16 08:30 MCV 92.6 fl (80.0-105.0) 10/25/16 08:30 MCH 31.7 pg (25.0-35.0) 10/25/16 08:30 MCHC 34.2 g/dl (31.0-37.0) 10/25/16 08:30 RDW 17.2 % (11.5-14.5) H 10/25/16 08:30 Plt Count 125 10^3/uL (120.0-450.0) 10/25/16 08:30 MPV 9.9 fl (7.0-11.0) 10/25/16 08:30 Gran % 62.3 % (50.0-68.0) 10/22/16 07:18 Lymph % (Auto) 15.7 % (22.0-35.0) L 10/22/16 07:18 Stephenson % (Auto) 22.0 % (1.0-6.0) H 10/22/16 07:18 Eos % (Auto) 0.0 % (1.5-5.0) L 10/22/16 07:18 Baso % (Auto) 0.0 % (0.0-3.0) 10/22/16 07:18 Gran # 1.39 (1.4-6.5) L 10/22/16 07:18 Lymph # 0.4 (1.2-3.4) L 10/22/16 07:18 Stephenson # 0.5 (0.1-0.6) 10/22/16 07:18 Eos # 0.0 (0.0-0.7) 10/22/16 07:18 Baso # 0.00 K/mm3 (0.0-2.0) 10/22/16 07:18 Neutrophils % (Manual) 50 % (50.0-70.0) 10/25/16 08:30 Band Neutrophils % 2 % (0-2) 10/24/16 09:07 Lymphocytes % (Manual) 33 % (22.0-35.0) 10/25/16 08:30 Atypical Lymphs % 2 % (0.0-0.0) H 10/23/16 07:00 Monocytes % (Manual) 14 % (1.0-6.0) H 10/25/16 08:30 Eosinophils % (Manual) 2 % (0.0-3.0) 10/25/16 08:30 Basophils % (Manual) 1 % (0.0-1.0) 10/25/16 08:30 Platelet Evaluation Low (NORMAL) 10/24/16 09:07 Large Platelets Present 10/24/16 09:07 Giant Platelets Present 10/25/16 08:30 Hypochromasia Slight 10/24/16 09:07 Anisocytosis (manual) Slight 10/25/16 08:30 PT 11.4 Seconds (9.9-11.8) 10/24/16 07:35 INR 1.06 (0.93-1.08) 10/24/16 07:35 APTT 28.9 Seconds (23.7-30.8) 10/19/16 01:25 Sodium 133 mmol/L (132-148) 10/25/16 08:00 Potassium 4.0 mmol/L (3.6-5.0) 10/25/16 08:00 Chloride 100 mmol/L (98-107) 10/25/16 08:00 Carbon Dioxide 23 mmol/L (21-33) 10/25/16 08:00 Anion Gap 14 (10-20) 10/25/16 08:00 BUN 10 mg/dL (7-21) 10/25/16 08:00 Creatinine 0.6 mg/dL (0.5-1.4) 10/25/16 08:00 Est GFR ( Amer) > 60 10/25/16 08:00 Est GFR (Non-Af Amer) > 60 10/25/16 08:00 Random Glucose 93 mg/dL (70-110) 10/25/16 08:00 Calcium 9.1 mg/dL (8.4-10.5) 10/25/16 08:00 Phosphorus 3.8 mg/dL (2.5-4.5) 10/25/16 08:00 Magnesium 1.8 mg/dL (1.7-2.2) 10/25/16 08:00 Total Bilirubin 3.7 mg/dL (0.2-1.3) H 10/25/16 08:00 Direct Bilirubin 2.8 mg/dL (0.0-0.4) H 10/24/16 07:35 AST 143 U/L (15-59) H 10/25/16 08:00 ALT 119 U/L (7-56) H 10/25/16 08:00 Alkaline Phosphatase 146 U/L (38-133) H 10/25/16 08:00 Lactate Dehydrogenase 445 U/L (333-699) 10/23/16 08:30 Total Creatine Kinase 178 U/L (35-230) 10/19/16 03:15 Troponin I < 0.01 ng/mL 10/19/16 03:15 Total Protein 7.6 g/dL (5.8-8.3) 10/25/16 08:00 Albumin 3.8 g/dL (3.0-4.8) 10/25/16 08:00 Globulin 3.8 gm/dL 10/25/16 08:00 Albumin/Globulin Ratio 1.0 (1.1-1.8) L 10/25/16 08:00 Lipase 71 U/L (23-300) 10/23/16 07:00 TSH 3rd Generation 5.73 mIU/mL (0.46-4.68) H 10/19/16 03:15 Stool Occult Blood Negative (NEGATIVE) 10/23/16 06:45 Digoxin 0.8 ng/mL (0.8-2.0) 10/22/16 07:18 Alcohol, Quantitative 145 mg/dL (0-10) H 10/19/16 03:15 Hepatitis A IgM Ab Negative (NEGATIVE) 10/23/16 16:15 Hep Bs Antigen Negative (NEGATIVE) 10/23/16 16:15 Hep B Core IgM Ab Negative (NEGATIVE) 10/23/16 16:15 Hepatitis C Antibody Negative (NEGATIVE) 10/23/16 16:15 Attending/Attestation - Attestation I have personally seen and examined this patient.: Yes I have fully participated in the care of the patient.: Yes I have reviewed all pertinent clinical information, including history, physical exam and plan: Yes Notes (Text): 10/25/16 14:54 51 year old male with past medical history of paroxysmal afib, tachy-viki syndrome s/p pacemaker, cardiomyopathy, hypertension and chronic ETOH abuse who presented after fall at home with left sided facial trauma. He had a CT head/ maxillofacial which showed mild soft tissue swelling/hematoma of the left side of the scalp, soft tissue swelling of the left frontal scalp and periorbital region and no acute intracranial hemorrhage and angulation of the right nasal bone, with age indeterminant fracture of the left anterior nasal bone. He was seen by ENT who recommended outpatient follow up. He was also recommended to follow up with ophthalmology as outpatient. In ER he developed Afib with RVR and was started on cardizem drip. HR is now better controlled and he is currently he is on metoprolol, cardizem and digoxin. He was being followed by cardiology. He is not a candidate for anticoagulation due to history of noncompliance, chronic etoh abuse and falls. He was on ativan prn for alcohol withdrawal. He is on multivitamin, folic acid and thiamine. He was counselled on alcohol abstinence. He was seen by PT who initially recommended TCU. However his gait has improved and he is ambulating without assistance. He had elevated LFT and pancytopenia likely secondary to chronic ETOH abuse which began to improve. He was seen by GI. He needs close outpatient follow up. If LFTs persistently high consider autoimmune workup. He is on synthroid for history of hypothyroidism. Patient is discharged home to follow up with pmd. Follow up with cardiology and GI. Follow up with ENT and ophthalmology. Counselled on alcohol abstinence. Shania Garcia MD Hospitalist.
--- NOTE | 2016-10-25 14:47 | PN ---
DATE: SUBJECTIVE: The patient is comfortable. He denies any dizziness or blurry vision from both eyes. PHYSICAL EXAMINATION: VITAL SIGNS: Blood pressure of 120/69, heart rate of 66, temperature of 98.2, and respirations of 20. HEENT: Left periorbital ecchymosis. NECK: No JVD. CHEST: Clear. HEART: S1 and S2 regular. EXTREMITIES: No edema. LABORATORY DATA: Today's hemoglobin and hematocrit are 11.6 and 33.9, white count and platelet count are 3.2 and 125,000. SMA-7 is completed and within normal limits. Liver enzymes are slightly more elevated compared to yesterday. ASSESSMENT: 1. Chronic atrial fibrillation. 2. Dilated cardiomyopathy. 3. Status post fall with nasal fracture and left rib fracture. 4. Improved thrombocytopenia. 5. Ethanol abuse. CONDITION: Case was discussed with Dr. Garcia. The patient can be discharged on his current medication including Cardizem CD at 180 mg once a day, Feosol one table t.i.d., Lanoxin 0.25 mg orally once a day, and Lopressor 50 mg twice a day. The patient will be evaluated by an repair specialist as an outpatient. Earle Patel MD
== END 2016-10-25 17:05 | disposition home or self-care (01) | DRG 586 ==
LOC: ED 18:35 → EROBSV 19:12 → UNDODISOB 10-19 00:18 → OBSVTOIN 10-19 02:27 → ERH 10-19 02:51 → 2RSO 10-19 04:21 → 5RSO 10-22 13:38
PROVIDERS: ADMIT Internal Medicine; ATTEND Internal Medicine
PROC: 0HQ1XZZ Repair Face Skin, External Approach (ICD-10-PCS; principal; 2016-10-18)
DX: S02.2XXA Fracture of nasal bones, initial encounter for closed fracture (principal); S22.32XA Fracture of one rib, left side, initial encounter for closed fracture; S01.81XA Laceration without foreign body of other part of head, initial encounter; I50.20 Unspecified systolic (congestive) heart failure; D61.818 Other pancytopenia; I42.0 Dilated cardiomyopathy; I11.0 Hypertensive heart disease with heart failure; E87.1 Hypo-osmolality and hyponatremia; E83.42 Hypomagnesemia; I49.5 Sick sinus syndrome; F10.239 Alcohol dependence with withdrawal, unspecified; I48.0 Paroxysmal atrial fibrillation; E03.9 Hypothyroidism, unspecified; Y90.6 Blood alcohol level of 120-199 mg/100 ml; W01.0XXA Fall on same level from slipping, tripping and stumbling without subsequent striking against object, initial encounter; I48.2 Chronic atrial fibrillation; R19.7 Diarrhea, unspecified; K76.0 Fatty (change of) liver, not elsewhere classified; Y92.002 Bathroom of unspecified non-institutional (private) residence as the place of occurrence of the external cause; Y93.E1 Activity, personal bathing and showering; Z95.0 Presence of cardiac pacemaker; Y99.8 Other external cause status; Z98.84 Bariatric surgery status

== ENCOUNTER 2016-10-28 00:29 | Observation (INO) | payer MEDICAID ==
[2016-10-28 00:56] VITALS: BMI 33.9
--- NOTE | 2016-10-28 01:12 | ED PDOC ---
Arrival/HPI - General Chief Complaint: Medical Clearance Time Seen by Provider: 10/28/16 00:59 Historian: Patient - History of Present Illness Narrative History of Present Illness (Text): 10/28/16 01:09 Gil Ybarra is a 51 year old male, with a history of a-fib, pacemaker, hypertension, cardiomyopathy and alcohol abuse, presents to the emergency department complaining of palpitations. Denies any chest pain, shortness of breath and dyspnea on exertion. Admits to drinking alcohol throughout the day. Patient states that he was advised not to take Digoxin, but is compliant with Metoprolol. Denies any fever, chills, headache, dizziness, nausea, vomiting, diarrhea, urinary symptoms, trauma, or any other complaints at this time. Symptom Onset: Gradual Symptom Course: Unchanged Severity Level: Mild Activities at Onset: Light Context: Home Past Medical History - Provider Review Nursing Documentation Reviewed: Yes - Past History Past History: No Previous (hx of afib, svt) - Infectious Disease Hx of Infectious Diseases: None - Tetanus Immunization Tetanus Immunization: Unknown - Cardiac Hx Cardiac Disorders: Yes Hx Hypertension: Yes Hx Pacemaker: Yes (2014) - Pulmonary Hx Respiratory Disorders: No Hx Chronic Obstructive Pulmonary Disease (COPD): No - Neurological Hx Neurological Disorder: No HX Cerebrovascular Accident: No Hx Seizures: (pt denies) - HEENT Hx HEENT Disorder: Yes (eyeglasses) Hx Blind: No Hx Cataracts: No Hx Deafness: No Hx Difficulty Chewing: No Hx Epistaxis: No Hx Glaucoma: No Hx Macular Degeneration: No Other/Comment: 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 related noise exposure - Renal Hx Renal Disorder: No Hx Renal Failure: No - Endocrine/Metabolic Hx Endocrine Disorders: No Hx Diabetes Mellitus Type 1: No Hx Diabetes Mellitus Type 2: No Hx Hypothyroidism: No - Hematological/Oncological Hx Blood Disorders: No Hx AIDS: No Hx Anemia: No Hx Cancer: No Hx Chemotherapy: No Hx Cirrhosis: No Hx Hemophilia: No Hx Hepatitis A: No Hx Hepatitis B: No Hx Hepatitis C: No Hx Metastasis: No Hx Shingles: No Hx Sickle Cell Disease: No Hx Unexplained Bleeding: No - Integumentary Hx Dermatological Disorder: No Hx Basal Cell Carcinoma: No Hx Eczema: No Hx Melanoma: No Hx Psoriasis: No Hx Squamous Cell Carcinoma: No Other/Comment: tatoos, bruise to left abd and rib area - Musculoskeletal/Rheumatological Hx Falls: Yes (numerous ecchymotic areas/face left lower abdomen) - Gastrointestinal Hx Gastrointestinal Disorders: Yes Hx Colostomy: No Hx Crohn's Disease: No Hx Diverticulitis: No Hx Gall Bladder Disease: No Hx Gastroesophageal Reflux: Yes Hx Ileostomy: No Hx Liver Failure: No Hx Pancreatitis: No HX Swallowing Problems: No Other/Comment: perforated ulcer X2, had sx twice, rectal bleeding due to perforations - Genitourinary/Gynecological Hx Genitourinary Disorders: No Hx Hematuria: No Hx Incontinence: No Hx Prostate Problems: No Hx Sexually Transmitted Diseases: No Hx Urinary Tract Infection: No - Psychiatric Hx Psychophysiologic Disorder: Yes (ETOH abuse drinks 1/2 to 1 case beer per day ) Hx Anxiety: No Hx Bipolar Disorder: No Hx Depression: No Hx Hallucinations: No Hx Panic Disorder: No Hx Post Traumatic Stress Disorder: No Hx Psychosis: No Hx Schizophrenia: No Hx Sexual Abuse: No Hx Substance Use: No (pt denies) Other/Comment: ETOH, drinks 1 case of beer a day, smokes a cigar "twice a year" , denies substance use - Surgical History Hx Amputation: No Hx Appendectomy: No Hx Cardiac Catheterization: No Hx Cholecystectomy: No Hx Coronary Stent: No Hx Gastric Bypass Surgery: Yes (around 10 yrs ago used to weigh 360 lbs) Hx Hysterectomy: No Hx Joint Replacement: No Hx Kidney Transplant: No Hx Liver Transplant: No Hx Mastectomy: No Hx Musculoskeletal Surgery: No Hx Open Heart Surgery: Yes (pacemAKER 2014) Hx Orthopedic Surgery: No Hx Splenectomy: No Hx Valve Replacement: No - Anesthesia Hx Anesthesia: Yes Hx Anesthesia Reactions: No Hx Malignant Hyperthermia: No - Suicidal Assessment Feels Threatened In Home Enviroment: No Family/Social History - Physician Review Nursing Documentation Reviewed: Yes Family/Social History: No Known Family HX Smoking Status: Never Smoked Hx Alcohol Use: Yes (beer) Frequency of alcohol use: Daily Amount per day: 6 Hx Substance Use: No (pt denies) Hx Substance Use Treatment: No Allergies/Home Meds Allergies/Adverse Reactions: Allergies No Known Allergies Allergy (Verified 10/28/16 00:55) Physical Exam - Physical Exam Narrative Physical Exam (Text): Constitutional: Normal. absent: Fatigue, Weight Change, Fevers Eyes: Normal ENT: Normal Respiratory: Normal absent: SOB, Cough, Sputum Cardiovascular: Present: Palpitation absent: Chest pain, Syncope Gastrointestinal:Normal absent: Abdominal pain, Diarrhea, Nausea, Vomiting Genitourinary: Normal. absent: Dysuria, Frequency, Hematuria Musculoskeletal: Normal. absent: Arthralgias, Back Pain, Neck Pain Skin: Normal Neurological: Normal absent: Focal Weakness Endocrine: Normal Hemo/Lymphatic: Normal Psychiatric: Normal - Physical exam Patient appears age appropriate, speaking full sentences without difficulty. - Systems Exam Head: Present: Atraumatic, Normocephalic, left perorbital/facial swelling. States this is old fron previous fall and was already evaluated during previous visit. Pupils: Present: PERRL Extraocular Muscles: Present: no pain with EOMI. No diplopia Conjunctiva: Present: Normal Mouth: Present: Moist Mucous Membranes Neck: Present: Normal Range of Motion. No: MIDLINE TENDERNESS, Paraspinal Tenderness Respiratory/Chest: Present: Clear to Auscultation, Good Air Exchange. No: Respiratory Distress, Accessory Muscle Use, Tachypnic Cardiovascular: Present: Tachycardia, Irregular rhythm, Normal S1, S2, Peripheral Pulses Present. No: Murmurs Abdomen: Present: Normal Bowel Sounds, No: Tenderness, Peritoneal Signs, Rebound, Guarding, Distention Back: Present: Normal Inspection. No: Midline Tenderness, Paraspinal Tenderness Upper Extremity: Present: Normal Inspection. No: Cyanosis, Edema Lower Extremity: Present: Normal Inspection. No: Edema Neurological: Present: GCS=15, Speech Normal, cranial nerves II through XII fully intact with no cerebellar abnormality, neuro-sensory fully intact. No focal neurological deficits. Skin: Present: Warm, Dry, Normal Color. No: Rashes Lymphatic: Present: OX3, NI, NC Psychiatric: Present: Alert, Oriented x 3, Normal Insight, Normal Concentration Vital Signs Reviewed: Yes Vital Signs Temp Pulse Resp BP Pulse Ox 10/28/16 02:50 130 H 109/78 10/28/16 02:49 133 H 16 109/78 99 10/28/16 02:09 123 H 109/78 10/28/16 00:56 98.2 F 140 H 20 110/65 96 Temperature: Afebrile Blood Pressure: Normal Pulse: Tachycardic Respiratory Rate: Normal Appearance: Positive for: Well-Appearing, Non-Toxic, Comfortable Pain Distress: None Mental Status: Positive for: Alert and Oriented X 3 Medical Decision Making ED Course and Treatment: 10/28/16 01:12 Impression: A 51 male who presents to the ed complaining of palpitation and chest discomfort. On exam patient is tachycardic, has an irreguar rhythm. pt has left perorbital/facial swelling which was evaluated during previous visit. Differential Diagnosis included but are not limited to: a-fib Plan: -- EKG -- Alcohol level -- Digoxin -- Labs, cardiac enzymes -- Aspirin -- Dextrose -- Cardizem -- Ativan -- Reassess and disposition Previous visits: Reviewed previous visit. Patient was discharged from the hospital on 10/25/16 after being treated for a-fib and alcohol withdrawal. Progress Notes: 10/28/16 03:00 EKG interpreted by me: a-fib @ 130 bpm with irregular rhythm. No ST segment elevation. 10/28/16 03:59 CXR shows cardiomegaly, no effusions, no infiltrates. Interpreted by me. pts HR 90's on monitor states palpitations resolved no signs or symptoms of alcohol withdrawal agrees with observation stay in the hospital dw Dr. Pacheco (house doc) accepted obs to hospitalist service Dr. Willard informed - Lab Interpretations Lab Results: 10/28/16 01:55 10/28/16 02:55 Lab Results 10/28/16 02:55: Sodium 140, Potassium 3.8, Chloride 108 H, Carbon Dioxide 19 L, Anion Gap 17, BUN 7, Creatinine 0.6, Est GFR ( Amer) > 60, Est GFR (Non- Af Amer) > 60, Random Glucose 120 H, Calcium 8.4, Total Bilirubin 1.7 H, AST 146 H, ALT 111 H, Alkaline Phosphatase 115, Lactate Dehydrogenase 483, Total Creatine Kinase < 20 L, Troponin I < 0.01, NT-Pro-B Natriuret Pep 781 H, Total Protein 7.2, Albumin 3.6, Globulin 3.5, Albumin/Globulin Ratio 1.0 L 10/28/16 01:55: Alcohol, Quantitative 271 H 10/28/16 01:55: Digoxin 0.4 L 10/28/16 01:55: PT 10.8, INR 1.00, APTT 29.0 10/28/16 01:55: WBC 3.9 L D, RBC 3.58, Hgb 11.4 L, Hct 32.6 L, MCV 91.1, MCH 31.8, MCHC 35.0, RDW 17.5 H, Plt Count 231, MPV 9.2, Neutrophils % (Manual) 49 L , Band Neutrophils % 5 H, Lymphocytes % (Manual) 26, Monocytes % (Manual) 18 H, Eosinophils % (Manual) 1, Basophils % (Manual) 1, Platelet Evaluation Normal - RAD Interpretation Radiology Orders: 10/28/16 01:22 CHEST PORTABLE [RAD] Stat - Medication Orders Current Medication Orders: Folic Acid 1 mg/ Thiamine HCl 100 mg/ Multivitamins/Vitamin C 10 ml/ Dextrose 1 ,011.2 mls @ 100 mls/hr IV .[id number] ALLIE Discontinued Medications Aspirin (Aspirin Chewable) 324 mg PO STAT STA Stop: 10/28/16 01:23 Last Admin: 10/28/16 02:09 Dose: 324 mg Diltiazem HCl (Cardizem) 15 mg IVP STAT STA Stop: 10/28/16 01:23 Last Admin: 10/28/16 02:09 Dose: 15 mg Diltiazem HCl (Cardizem) 20 mg IVP STAT STA Stop: 10/28/16 02:40 Last Admin: 10/28/16 02:50 Dose: 20 mg Lorazepam (Ativan) 2 mg IVP ONCE ONE Stop: 10/28/16 01:23 Last Admin: 10/28/16 02:09 Dose: 2 mg - Scribe Statement The provider has reviewed the documentation as recorded by the Umer Burch Provider Attestation: All medical record entries made by the Umer were at my direction and personally dictated by me. I have reviewed the chart and agree that the record accurately reflects my personal performance of the history, physical exam, medical decision making, and the department course for this patient. I have also personally directed, reviewed, and agree with the discharge instructions and disposition. Disposition/Present on Arrival - Present on Arrival Any Indicators Present on Arrival: No History of DVT/PE: No History of Uncontrolled Diabetes: No Urinary Catheter: No History of Decub. Ulcer: No History Surgical Site Infection Following: None - Disposition Have Diagnosis and Disposition been Completed?: Yes Diagnosis: Rapid atrial fibrillation Disposition: HOSPITALIZED Disposition Time: 04:01 Patient Plan: Observation Condition: STABLE Referrals: Kenneth Gandhi MD [Primary Care Provider] - Follow up with primary Forms: [employer] (Taiwanese)
[2016-10-28] MEDS ORDERED: Folic Acid 1 MG, Thiamine 100 MG, Multivitamin (MVI) 10 ML in Dextrose 5% In Water 1,00... IV SCH (01:30)
[2016-10-28 02:26] LABS: HEMOGLOBIN 11.4 g/dL (14.0-18.0); MEAN CELL VOLUME 91.1 fl (80.0-105.0); MEAN CORPUSCULAR HEMOGLOBIN 31.8 pg (25.0-35.0); MEAN PLATELET VOLUME 9.2 fl (7.0-11.0); PLATELET COUNT 231 10^3/uL (120.0-450.0); RBC 3.58 10^6/uL (3.5-6.1); RED CELL DISTRIBUTION WIDTH 17.5 % (11.5-14.5); WHITE BLOOD COUNT 3.9 10^3/ul (4.5-11.0)
[2016-10-28 02:31] LABS: PROTHROMBIN TIME 10.8 Seconds (9.9-11.8)
[2016-10-28 02:53] LABS: BAND 5 % (0-2); BASOPHIL 1 % (0.0-1.0); EOSINOPHIL 1 % (0.0-3.0); LYMPHOCYTE 26 % (22.0-35.0); MONOCYTE 18 % (1.0-6.0); NEUTROPHIL 49 % (50.0-70.0); PLATELET ESTIMATE NORMAL (NORMAL)
[2016-10-28 03:22] LABS: ALBUMIN 3.6 g/dL (3.0-4.8); ALT/SGPT 111 U/L (7-56); AST/SGOT 146 U/L (15-59); BLOOD UREA NITROGEN 7 mg/dL (7-21); CALCIUM 8.4 mg/dL (8.4-10.5); GFR AFRICAN-AMERICAN > 60; GFR NON-AFRICAN AMERICAN > 60
[2016-10-28 03:34] LABS: B-TYPE NATRIURETIC PEPTIDE 781 pg/mL (0-450)
[2016-10-28 03:54] LABS: TROPONIN I < 0.01 ng/mL
--- NOTE | 2016-10-28 04:53 | CP.PCM.HP ---
History of Present Illness - History of Present Illness History of Present Illness: CC: Atrial Fibrillation with Rapid Ventricular Response HPI: Mr. Ybarra is a 51 year old male with a past medical history of paroxysmal AFib, tachy-viki syndrome s/p pacer, HTN, cardiomyopathy, alcohol abuse, and PUD, who presented to the ED complaining of palpitations. Patient states that earlier yesterday morning, he began to experience palpitations while he was resting at his house and that they were continuous throughout the day. Patient states that he had no other associated symptoms, such as chest pain , SOB, LOC, headache, or numbness/tingling/weakness of any extremity. After several hours of persistent palpitations, patient decided that he needed to be seen in the ED for evaluation. He also endorses that his doctor told him that he shouldn't be taking his digoxin, although he could not specify which doctor, but he does report that he has been taking all of his other home medications. Patient does admit to drinking "his average" daily amount of alcohol which is reported by patient to be 24 12oz. cans of beer (Coors Lite). An EKG in the ED showed atrial fibrillation with a rate of [address] segment elevation and he was administered two stat doses of cardizem, one at 0123 and one at 0240. Patient was [place] [facility] [place], AF with RVR and alcohol withdrawal on 10/25/2016 and discharged home with the medications listed in his medication summary. Currently, patient is asymptomatic and reports that he is not experiencing the palpitations at this time. Patient denies headache, loss of consciousness, dizziness, vision changes, neck pain, back pain, chest pain, shortness of breath , abdominal pain, N/V or diarrhea. PMH: paroxysmal AFib, Tachy-Viki syndrome s/p pacer, HTN, cardiomyopathy, Alcohol abuse, and PUD PSH: Gastric bypass with multiple complications afterwards; peptic ulcer repair Family Hx: Father-Liver Cancer; [id number] Social Hx: Denies chronic tobacco use and any illicit drug use; chronic alcohol abuse-drinks at least one 24-pack of Coors Lite per day Home Meds: Digoxin, Lisinopril, Cardizem, Levothyoxine, Metoprolol PMD: Dr. Arellano Present on Admission - Present on Admission Any Indicators Present on Admission: No Review of Systems - Review of Systems Review of Systems: Please refer to HPI Past Patient History - Infectious Disease Hx of Infectious Diseases: None - Tetanus Immunizations Tetanus Immunization: Unknown - Past Medical History & Family History Past Medical History?: Yes - Past Social History Smoking Status: Never Smoked - CARDIAC Hx Cardiac Disorders: Yes Hx Hypertension: Yes Hx Pacemaker: Yes (2014) - PULMONARY Hx Respiratory Disorders: No Hx Chronic Obstructive Pulmonary Disease (COPD): No - NEUROLOGICAL Hx Neurological Disorder: No HX Cerebrovascular Accident: No Hx Seizures: (pt denies) - HEENT Hx HEENT Problems: Yes (eyeglasses) Hx Blind: No Hx Cataracts: No Hx Deafness: No Hx Difficulty Chewing: No Hx Epistaxis: No Hx Glaucoma: No Hx Macular Degeneration: No Other/Comment: 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 related noise exposure - RENAL Hx Chronic Kidney Disease: No Hx Renal Failure: No - ENDOCRINE/METABOLIC Hx Endocrine Disorders: No Hx Diabetes Mellitus Type 1: No Hx Diabetes Mellitus Type 2: No Hx Hypothyroidism: No - HEMATOLOGICAL/ONCOLOGICAL Hx Blood Disorders: No Hx AIDS: No Hx Anemia: No Hx Cancer: No Hx Chemotherapy: No Hx Cirrhosis: No Hx Hemophilia: No Hx Hepatitis A: No Hx Hepatitis B: No Hx Hepatitis C: No Hx Metastesis: No Hx Shingles: No Hx Sickle Cell Disease: No Hx Unexplained Bleeding: No - INTEGUMENTARY Hx Dermatological Problems: No Hx Basil Cell: No Hx Eczema: No Hx Melanoma: No Hx Psoriasis: No Hx Squamous Cell: No Other/Comment: tatoos, bruise to left abd and rib area - MUSCULOSKELETAL/RHEUMATOLOGICAL Hx Falls: Yes (numerous ecchymotic areas/face left lower abdomen) - GASTROINTESTINAL Hx Gastrointestinal Disorders: Yes Hx Colostomy: No Hx Crohn's Disease: No Hx Diverticulitis: No Hx Gall Bladder Disease: No Hx Gastroesophageal Reflux: Yes Hx Ileostomy: No Hx Liver Failure: No Hx Pancreatitis: No HX Swallowing Problems: No Other/Comment: perforated ulcer X2, had sx twice, rectal bleeding due to perforations - GENITOURINARY/GYNECOLOGICAL Hx Genitourinary Disorders: No Hx Hematuria: No Hx Incontinence: No Hx Prostate Problems: No Hx Sexually Transmitted Disorders: No Hx Urinary Tract Infection: No - PSYCHIATRIC Hx Psychophysiologic Disorder: Yes (ETOH abuse drinks 1/2 to 1 case beer per day ) Hx Anxiety: No Hx Bipolar Disorder: No Hx Depression: No Hx Hallucinations: No Hx Panic Symptoms: No Hx Post Traumatic Stress Disorder: No Hx Psychosis: No Hx Schizophrenia: No Hx Sexual Abuse: No Hx Substance Use: No (pt denies) Other/Comment: ETOH, drinks 1 case of beer a day, smokes a cigar "twice a year" , denies substance use - SURGICAL HISTORY Hx Amputation: No Hx Appendectomy: No Hx Cardiac Catheterization: No Hx Cholecystectomy: No Hx Coronary Stent: No Hx Gastric Bypass Surgery: Yes (around 10 yrs ago used to weigh 360 lbs) Hx Hysterectomy: No Hx Joint Replacement: No Hx Kidney Transplant: No Hx Liver Transplant: No Hx Mastectomy: No Hx Musculoskeletal Surgery: No Hx Open Heart Surgery: Yes (pacemAKER 2014) Hx Orthopedic Surgery: No Hx Splenectomy: No Hx Valve Replacement: No - ANESTHESIA Hx Anesthesia: Yes Hx Anesthesia Reactions: No Hx Malignant Hyperthermia: No Meds Allergies/Adverse Reactions: Allergies Allergy/AdvReac Type Severity Reaction Status Date / Time No Known Allergies Allergy Verified 10/28/16 00:55 Physical Exam - Constitutional Appears: No Acute Distress - Head Exam Head Exam: ATRAUMATIC, NORMAL INSPECTION, NORMOCEPHALIC - Eye Exam Eye Exam: EOMI, Periorbital swelling, Periorbital tenderness, PERRL. absent: Conjunctival injection, Nystagmus, Scleral icterus Pupil Exam: NORMAL ACCOMODATION. absent: Fixed, Irregular Additional comments: Right periorbital bruising noted from previous admission - ENT Exam ENT Exam: Mucous Membranes Moist, Normal Exam, Normal Oropharynx - Neck Exam Neck exam: Positive for: Full Rom, Normal Inspection. Negative for: Lymphadenopathy, Tenderness - Respiratory Exam Respiratory Exam: Clear to Auscultation Bilateral, NORMAL BREATHING PATTERN. absent: Rales, Rhonchi, Wheezes, Respiratory Distress, Stridor - Cardiovascular Exam Cardiovascular Exam: Tachycardia, Irregular Rhythm, +S1, +S2. absent: Diastolic murmur, Systolic Murmur - GI/Abdominal Exam GI & Abdominal Exam: Normal Bowel Sounds, Soft. absent: Distended, Firm, Guarding, Tenderness - Exam Exam: absent: Bladder Distension - Extremities Exam Extremities exam: Positive for: normal capillary refill, normal inspection, pedal pulses present. Negative for: calf tenderness, pedal edema - Back Exam Back exam: absent: CVA tenderness (L), CVA tenderness (R) - Neurological Exam Neurological exam: Alert, Oriented x3 - Psychiatric Exam Psychiatric exam: Normal Affect, Normal Mood - Skin Skin Exam: Dry, Intact, Normal Color, Warm Results - Vital Signs Recent Vital Signs: Last Vital Signs Temp 98.2 F 10/28/16 00:56 Pulse 109 H 10/28/16 04:00 Resp 16 10/28/16 04:00 BP 102/64 10/28/16 04:00 Pulse Ox 99 10/28/16 04:00 - Labs Result Diagrams: 10/28/16 01:55 10/28/16 02:55 Assessment & Plan - Assessment and Plan (Free Text) Assessment: 51 year old male with a past medical history of paroxysmal AFib, tachy-viki syndrome s/p pacer, HTN, cardiomyopathy, alcohol abuse, and PUD, who presented to the ED complaining of palpitations and was found to be in atrial fibrillation with rapid ventricular response. Plan: 1. Atrial Fibrillation with Rapid Ventricular Response -EKG showed A-fib at 130 bpm -likely etiology related to alcohol intake -Cardizem stat 20 mg and 15mg IV push given in ED -cont cardizem, digoxin, and lopressor -digoxin level low at 0.4, which is to be expected with reported non-compliance -telemetry monitoring 2. Alcohol Withdrawal -reports last drink to be on 10/27 at approx. 2200 -Alcohol level: 271 -Ativan 2mg q4h PRN for symptoms of alcohol withdrawal -IVF: Normal saline at 100mls/hr with folic acid, thiamine, and MV infusions -Zofran PRN for N/V -Mag/Phos pending -CIWA protocols q4h, seizure, fall and aspiration precautions 3. Transaminitis -stable elevation from prior visit -total bili dropped to 1.7 from 3.7 on prior admission -patient yet to have autoimmune workup as outpatient with GI -hepatitis panel at previous visit negative -patient on normal saline at 100mls/hr -will avoid medications with known hepatotoxicity 4. History of HTN -continue lisinopril -will monitor with vital signs q8h 5. History of Hypothyroidism -continue synthroid 6. History of Hyponatremia -will monitor with CMP and adjust treatment accordingly 7. GI/DVT Prophylaxis -Protonix/scd's Patient seen and case discussed with attending, Dr. Pacheco. - Date & Time Date: 10/28/16 Time: 04:30 Decision To Admit - Pt Status Changed To: Hospital Disposition Of: Observation - . Bed Request Type: Telemetry
[2016-10-28 05:08] LABS: MAGNESIUM 1.7 mg/dL (1.7-2.2)
[2016-10-28 05:28] LABS: BARBITURATES, UR NEGATIVE (NEGATIVE); BENZODIAZEPINES, UR NEGATIVE (NEGATIVE); OPIATES, UR NEGATIVE (NEGATIVE); PHENCYCLIDINE, UR NEGATIVE (NEGATIVE)
[2016-10-28] MEDS: Levothyroxine 25 MCG TAB PO SCH (06:50)
--- NOTE | 2016-10-28 09:10 | RAD ---
HISTORY: cough COMPARISON: 08/23/2016 FINDINGS: LUNGS: No active pulmonary disease. PLEURA: No significant pleural effusion identified, no pneumothorax apparent. CARDIOVASCULAR: Mild cardiomegaly. Single lead pacemaker OSSEOUS STRUCTURES: No significant abnormalities. VISUALIZED UPPER ABDOMEN: Normal. OTHER FINDINGS: None. IMPRESSION: No active disease.
[2016-10-28] MEDS ORDERED: diltiaZEM 180 mg/24 Hours CD Cap PO STA (09:23)
[2016-10-28] MEDS ORDERED: Oxycodone/Acetaminophen 5/325 mg Tab PO STA (09:23)
[2016-10-28] MEDS ORDERED: Sodium Chloride 0.9% 1,000 ML IV STA (09:38)
[2016-10-28] MEDS ORDERED: diltiaZEM 180 mg/24 Hours CD Cap PO SCH (10:00)
--- NOTE | 2016-10-28 12:35 | CT ---
PROCEDURE: CT HEAD WITHOUT CONTRAST. HISTORY: Trauma COMPARISON: None available. TECHNIQUE: Axial computed tomography images were obtained through the head/brain without intravenous contrast. Radiation dose: Total exam DLP = 790 mGy-cm. This CT exam was performed using one or more of the following dose reduction techniques: Automated exposure control, adjustment of the mA and/or kV according to patient size, and/or use of iterative reconstruction technique. FINDINGS: HEMORRHAGE: No intracranial hemorrhage. BRAIN: No mass effect or edema. Moderate atrophy. VENTRICLES: Unremarkable. No hydrocephalus. CALVARIUM: Unremarkable. PARANASAL SINUSES: Unremarkable as visualized. No significant inflammatory changes. MASTOID AIR CELLS: Unremarkable as visualized. No inflammatory changes. OTHER FINDINGS: None. IMPRESSION: No acute findings
[2016-10-28] MEDS ORDERED: Digoxin 250 mcg (0.25 mg) Tab PO SCH (14:00)
[2016-10-28] MEDS ORDERED: Pneumococcal 23-Valent Vaccine IM ONE (14:07)
[2016-10-28 15:01] VITALS: PULSE 85
[2016-10-28] MEDS: oxyCODONE 5 mg Immediate Release Tab PO PRN ×2 (16:16→22:02)
[2016-10-28] MEDS ORDERED: POLYETHYLENE GLYCOL 3350 17 GM/Dose PACKET PO STA (18:42)
[2016-10-28 22:43] LABS: HEMOGLOBIN 11.1 g/dL (14.0-18.0); MEAN CELL VOLUME 91.7 fl (80.0-105.0); MEAN CORPUSCULAR HEMOGLOBIN 31.6 pg (25.0-35.0); MEAN CORPUSCULAR HGB CONC 34.5 g/dl (31.0-37.0); MEAN PLATELET VOLUME 9.2 fl (7.0-11.0); PLATELET COUNT 166 10^3/uL (120.0-450.0); RBC 3.51 10^6/uL (3.5-6.1); RED CELL DISTRIBUTION WIDTH 17.3 % (11.5-14.5); WHITE BLOOD COUNT 3.5 10^3/ul (4.5-11.0)
--- NOTE | 2016-10-28 23:46 | CARD ---
APPROVED REPORT EKG Measurement Heart [id number] <Conclusion> Atrial fibrillation with rapid ventricular response ST & T wave abnormality, consider inferior ischemia or digitalis effect ST & T wave abnormality, consider anterolateral ischemia or digitalis effect Abnormal ECG
[2016-10-29 00:16] VITALS: RESP 18
[2016-10-29 01:01] LABS: BAND 2 % (0-2); EOSINOPHIL 1 % (0.0-3.0); LYMPHOCYTE 30 % (22.0-35.0); MONOCYTE 15 % (1.0-6.0); NEUTROPHIL 52 % (50.0-70.0); PLATELET ESTIMATE NORMAL (NORMAL)
[2016-10-29] MEDS: Levothyroxine 25 MCG TAB PO SCH (06:12)
[2016-10-29 06:59] VITALS: O2SAT 96
[2016-10-29 07:50] LABS: HEMOGLOBIN 11.1 g/dL (14.0-18.0); MEAN CELL VOLUME 92.7 fl (80.0-105.0); MEAN CORPUSCULAR HEMOGLOBIN 31.2 pg (25.0-35.0); MEAN CORPUSCULAR HGB CONC 33.6 g/dl (31.0-37.0); MEAN PLATELET VOLUME 9.7 fl (7.0-11.0); PLATELET COUNT 165 10^3/uL (120.0-450.0); RBC 3.56 10^6/uL (3.5-6.1); RED CELL DISTRIBUTION WIDTH 17.4 % (11.5-14.5)
[2016-10-29 07:55] LABS: WHITE BLOOD COUNT 2.9 10^3/ul (4.5-11.0)
[2016-10-29 08:17] LABS: BLOOD UREA NITROGEN 9 mg/dL (7-21); CALCIUM 9.2 mg/dL (8.4-10.5); GFR AFRICAN-AMERICAN > 60; GFR NON-AFRICAN AMERICAN > 60; MAGNESIUM 1.6 mg/dL (1.7-2.2)
[2016-10-29] MEDS ORDERED: Metoprolol 1 mg/ml Inj IVP PRN (08:32)
[2016-10-29 09:43] LABS: BASOPHIL 1 % (0.0-1.0); EOSINOPHIL 1 % (0.0-3.0); LYMPHOCYTE 28 % (22.0-35.0); MONOCYTE 18 % (1.0-6.0); MYELOCYTE 1 %; NEUTROPHIL 51 % (50.0-70.0); PLATELET ESTIMATE NORMAL (NORMAL)
[2016-10-29] MEDS ORDERED: Multivitamin With Minerals Tab PO SCH (10:00)
[2016-10-29] MEDS ORDERED: diltiaZEM 180 mg/24 Hours CD Cap PO SCH (10:00)
[2016-10-29] MEDS: oxyCODONE 5 mg Immediate Release Tab PO PRN ×2 (10:24→17:15)
[2016-10-29] MEDS ORDERED: Magnesium Sulfate 2 GM in Sodium Chloride 0.9% 100 ML IVPB ONE (13:33)
--- NOTE | 2016-10-29 14:54 | CON ---
DATE: 10/29/2016 HISTORY OF PRESENT ILLNESS: The patient is a 51-year-old male with multiple admissions for similar problems. The patient comes with an alcoholic heart and presents with a tachycardia after alcoholic binge. The patient has chronic atrial fibrillation in which he has had multiple falls and with recent fall secondary to alcoholic binge. He is noncompliant with his medications. He currently presents with atrial fibrillation now that his alcohol has left the system. His heart rate is well controlled while on Cardizem as well as metoprolol. SOCIAL HISTORY: The patient is part of alcohol anonymous, but thinks grade and 20 beers a day. REVIEW OF SYSTEMS: A 14-point review of systems was reviewed in detail. The patient is currently asymptomatic now. PHYSICAL EXAMINATION: VITAL SIGNS: Blood pressure 135/88, heart rates in the 70s, atrial fibrillation. NECK: Negative JVD. LUNGS: Without rales. HEART: S1 and S2. EXTREMITIES: Without edema. LABORATORY DATA: Hemoglobin is 11.1. Chemistries: The magnesium is 1.6 with a potassium of 4.6. IMPRESSION: 1. Atrial fibrillation secondary to alcoholism. 2. Dilated cardiomyopathy secondary to alcohol. 3. Tachycardia which is now controlled on diltiazem and metoprolol. The patient has recurrent noncompliance with medications. I have discussed with the patient about his issues related to alcoholism. I have discussed with the severe deterioration of his heart given his alcoholism. The patient understands. I have offered him help for his program. The patient will think about it. The patient is already a part of alcoholic anonymous. We will DC his digoxin. We will continue his diltiazem and metoprolol. We will DC telemetry. No further cardiac workup is necessary. Aaron Haile MD
[2016-10-29 17:16] VITALS: BP 121/84; PULSE 80
[2016-10-29 18:38] VITALS: TEMP 97.5
--- NOTE | 2016-10-29 20:07 | CP.PCM.PN ---
<Jose Benito - Last Filed: 10/29/16 20:22> Subjective - Date & Time of Evaluation Date of Evaluation: 10/29/16 Time of Evaluation: 08:45 - Subjective Subjective: Jose Benito DO, PGY-1, Hospitalist Services Dr. Ndiaye Patient seen and examined at bedside. Patient wants IV pain medications, states he is too nauseated for PO intake. He states he has already refused his breakfast. Objective - Vital Signs/Intake and Output Vital Signs (last 24 hours): Temp Pulse Resp BP Pulse Ox 97.5 F L 80 18 121/84 96 10/29/16 18:00 10/29/16 18:00 10/29/16 18:00 10/29/16 18:00 10/29/16 06:00 - Medications Medications: Current Medications Diltiazem HCl (Cardizem Cd) 180 mg PO DAILY [facility] Last Admin: 10/29/16 11:50 Dose: 180 mg Ferrous Sulfate (Feosol) 324 mg PO TID [facility] Last Admin: 10/29/16 17:26 Dose: Not Given Levothyroxine Sodium (Synthroid) 25 mcg PO 0600 [facility] Last Admin: 10/29/16 06:12 Dose: 25 mcg Lisinopril (Zestril) 2.5 mg PO DAILY [facility] Last Admin: 10/29/16 11:51 Dose: 2.5 mg Lorazepam (Ativan) 2 mg IVP Q4H PRN; Protocol PRN Reason: Anxiety Last Admin: 10/29/16 15:57 Dose: 2 mg Metoprolol Tartrate (Lopressor) 50 mg PO BID [facility] Last Admin: 10/29/16 17:15 Dose: 50 mg Metoprolol Tartrate (Lopressor) 5 mg IVP Q6 PRN PRN Reason: Heart rate Multivitamins/Minerals (Therapeutic-M Tab) 1 tab PO DAILY [facility] Last Admin: 10/29/16 11:49 Dose: 1 tab Ondansetron HCl (Zofran Inj) 4 mg IVP Q4H PRN PRN Reason: Nausea/Vomiting Last Admin: 10/29/16 17:15 Dose: 4 mg Oxycodone HCl (Oxycodone Immediate Release Tab) 5 mg PO Q6H PRN PRN Reason: Pain, moderate (4-7) Last Admin: 10/29/16 17:15 Dose: 5 mg Pantoprazole Sodium (Protonix Inj) 40 mg IVP DAILY [facility] Last Admin: 10/29/16 11:54 Dose: 40 mg - Labs Labs: 10/29/16 07:46 10/29/16 07:46 PT 10.8 Seconds (9.9-11.8) 10/28/16 01:55 INR 1.00 (0.93-1.08) 10/28/16 01:55 APTT 29.0 Seconds (23.7-30.8) 10/28/16 01:55 - Constitutional Appears: Well, No Acute Distress - Head Exam Head Exam: ATRAUMATIC, NORMOCEPHALIC - Eye Exam Eye Exam: EOMI, Normal appearance, Periorbital swelling (left) Pupil Exam: NORMAL ACCOMODATION, PERRL - ENT Exam ENT Exam: Mucous Membranes Moist, Normal Oropharynx - Neck Exam Neck Exam: Normal Inspection - Respiratory Exam Respiratory Exam: Clear to Ausculation Bilateral, NORMAL BREATHING PATTERN - Cardiovascular Exam Cardiovascular Exam: Tachycardia, Irregular Rhythm, +S1, +S2 - GI/Abdominal Exam GI & Abdominal Exam: Soft, Normal Bowel Sounds. absent: Tenderness - Rectal Exam Rectal Exam: Deferred - Extremities Exam Extremities Exam: Full ROM, Normal Capillary Refill, Normal Inspection - Neurological Exam Neurological Exam: Alert, CN II-XII Intact, Oriented x3 - Psychiatric Exam Psychiatric exam: Normal Affect, Normal Mood - Skin Skin Exam: Dry, Intact, Normal Color, Warm Assessment and Plan - Assessment and Plan (Free Text) Assessment: Alcoholic, drug seeking 51 year old male with a past medical history of paroxysmal AFib, tachy-viki syndrome s/p pacer, HTN, cardiomyopathy, alcohol abuse, and PUD, who presented to the ED complaining of palpitations and was found to be in atrial fibrillation with rapid ventricular response. Plan: Plan: 1. Atrial Fibrillation: rate controlled on Diltiazem 180 mg SR and Metoprolol 5mg IVP for HR above 110. Patient is hemodynamically stable 2. Alcohol Withdrawal: CIWA protocol in place 3. Transaminitis secondary to alcohol abuse 4. History of Hypertension, will controlled on Lisinopril 5. History of Hypothyroidism: C/W synthroid 25 mcg daily 6. History of Hyponatremia: will monitor with CMP and adjust treatment accordingly 7. GI/DVT Prophylaxis: Protonix/scd's <Senthil CRENSHAW,Tere - Last Filed: 10/30/16 10:06> Objective - Vital Signs/Intake and Output Vital Signs (last 24 hours): Temp Pulse Resp BP Pulse Ox 97.5 F L 80 18 121/84 96 10/29/16 18:00 10/29/16 18:00 10/29/16 18:00 10/29/16 18:00 10/29/16 06:00 - Labs Labs: 10/29/16 07:46 10/29/16 07:46 PT 10.8 Seconds (9.9-11.8) 10/28/16 01:55 INR 1.00 (0.93-1.08) 10/28/16 01:55 APTT 29.0 Seconds (23.7-30.8) 10/28/16 01:55 Attending/Attestation - Attestation I have personally seen and examined this patient.: Yes I have fully participated in the care of the patient.: Yes I have reviewed all pertinent clinical information, including history, physical exam and plan: Yes Notes (Text): 10/30/16 10:02 Patient was seen and examined with district medical examiner. Agreed with resident assessment and plan. 51 year old male with a past medical history of alcohol abuse, AFib, tachy- viki syndrome s/p pacer, not on anticoagulation due to ongoing alcohol abuse and non compliance , HTN, cardiomyopathy, , and PUD is admitted with AF with RVR (due to non compliance with medication and alcohol abuse), elevated Transaminase.Heart rate is better controlled, wew ill watch for alcohol withdrawal and will monitor LFT. Prognosis is guarded due to non compliance and ongoing alcohol abuse. Management plan was discussed in detail with patient Education was provided.
[2016-10-30] MEDS: oxyCODONE 5 mg Immediate Release Tab PO PRN (03:06)
--- NOTE | 2016-10-30 05:33 | CP.PCM.DIS ---
<Anna Dinh - Last Filed: 10/31/16 14:53> Provider - Provider Date of Admission: 10/28/16 04:01 Attending physician: Tere Ndiaye MD Primary care physician: Kenneht Gandhi MD Consults: Cardiology Dr. Haile Time Spent in preparation of Discharge (in minutes): 45 Hospital Course - Lab Results Lab Results: Most Recent Lab Values WBC 2.9 10^3/ul (4.5-11.0) L* 10/29/16 07:46 RBC 3.56 10^6/uL (3.5-6.1) 10/29/16 07:46 Hgb 11.1 g/dL (14.0-18.0) L 10/29/16 07:46 Hct 33.0 % (42.0-52.0) L 10/29/16 07:46 MCV 92.7 fl (80.0-105.0) 10/29/16 07:46 MCH 31.2 pg (25.0-35.0) 10/29/16 07:46 MCHC 33.6 g/dl (31.0-37.0) 10/29/16 07:46 RDW 17.4 % (11.5-14.5) H 10/29/16 07:46 Plt Count 165 10^3/uL (120.0-450.0) 10/29/16 07:46 MPV 9.7 fl (7.0-11.0) 10/29/16 07:46 Gran % [employer] 10/28/16 22:31 Lymph % (Auto) [employer] 10/28/16 22:31 Finney % (Auto) [employer] Writer 10/28/16 22:31 Eos % (Auto) [employer] 10/28/16 22:31 Baso % (Auto) [employer] 10/28/16 22:31 Gran # [employer] 10/28/16 22:31 Lymph # [employer] 10/28/16 22:31 Finney # [employer] Writer 10/28/16 22:31 Eos # [employer] Writer 10/28/16 22:31 Baso # [employer] Writer 10/28/16 22:31 Neutrophils % (Manual) 51 % (50.0-70.0) 10/29/16 07:46 Band Neutrophils % 2 % (0-2) 10/28/16 22:31 Lymphocytes % (Manual) 28 % (22.0-35.0) 10/29/16 07:46 Monocytes % (Manual) 18 % (1.0-6.0) H 10/29/16 07:46 Eosinophils % (Manual) 1 % (0.0-3.0) 10/29/16 07:46 Basophils % (Manual) 1 % (0.0-1.0) 10/29/16 07:46 Myelocytes % 1 % 10/29/16 07:46 Platelet Evaluation Normal (NORMAL) 10/29/16 07:46 PT 10.8 Seconds (9.9-11.8) 10/28/16 01:55 INR 1.00 (0.93-1.08) 10/28/16 01:55 APTT 29.0 Seconds (23.7-30.8) 10/28/16 01:55 Sodium 133 mmol/L (132-148) 10/29/16 07:46 Potassium 4.8 mmol/L (3.6-5.0) 10/29/16 07:46 Chloride 100 mmol/L (98-107) 10/29/16 07:46 Carbon Dioxide 25 mmol/L (21-33) 10/29/16 07:46 Anion Gap 13 (10-20) 10/29/16 07:46 BUN 9 mg/dL (7-21) 10/29/16 07:46 Creatinine 0.6 mg/dL (0.5-1.4) 10/29/16 07:46 Est GFR ( Amer) > 60 10/29/16 07:46 Est GFR (Non-Af Amer) > 60 10/29/16 07:46 Random Glucose 86 mg/dL (70-110) 10/29/16 07:46 Calcium 9.2 mg/dL (8.4-10.5) 10/29/16 07:46 Phosphorus 4.0 mg/dL (2.5-4.5) 10/29/16 07:46 Magnesium 1.6 mg/dL (1.7-2.2) L 10/29/16 07:46 Total Bilirubin 1.7 mg/dL (0.2-1.3) H 10/28/16 02:55 AST 146 U/L (15-59) H 10/28/16 02:55 ALT 111 U/L (7-56) H 10/28/16 02:55 Alkaline Phosphatase 115 U/L (38-133) 10/28/16 02:55 Lactate Dehydrogenase 483 U/L (333-699) 10/28/16 02:55 Total Creatine Kinase < 20 U/L (35-230) L 10/28/16 02:55 Troponin I < 0.01 ng/mL 10/28/16 02:55 NT-Pro-B Natriuret Pep 781 pg/mL (0-450) H 10/28/16 02:55 Total Protein 7.2 g/dL (5.8-8.3) 10/28/16 02:55 Albumin 3.6 g/dL (3.0-4.8) 10/28/16 02:55 Globulin 3.5 gm/dL 10/28/16 02:55 Albumin/Globulin Ratio 1.0 (1.1-1.8) L 10/28/16 02:55 Digoxin 0.4 ng/mL (0.8-2.0) L 10/28/16 01:55 Urine Opiates Screen Negative (NEGATIVE) 10/28/16 04:55 Urine Methadone Screen Negative (NEGATIVE) 10/28/16 04:55 Ur Barbiturates Screen Negative (NEGATIVE) 10/28/16 04:55 Ur Phencyclidine Scrn Negative (NEGATIVE) 10/28/16 04:55 Ur Amphetamines Screen Negative (NEGATIVE) 10/28/16 04:55 U Benzodiazepines Scrn Negative (NEGATIVE) 10/28/16 04:55 U Oth Cocaine Metabols Negative (NEGATIVE) 10/28/16 04:55 U Cannabinoids Screen Negative (NEGATIVE) 10/28/16 04:55 Alcohol, Quantitative 271 mg/dL (0-10) H 10/28/16 01:55 - Hospital Course Hospital Course: Upon Admission 51 year old male with a past medical history of paroxysmal AFib, tachy-viki syndrome s/p pacer, HTN, cardiomyopathy, alcohol abuse, and PUD, who presented to the ED complaining of palpitations. Patient states that earlier yesterday morning, he began to experience palpitations while he was resting at his house and that they were continuous throughout the day. Patient states that he had no other associated symptoms, such as chest pain, SOB, LOC, headache, or numbness/ tingling/weakness of any extremity. After several hours of persistent palpitations, patient decided that he needed to be seen in the ED for evaluation. He also endorses that his doctor told him that he shouldn't be taking his digoxin, although he could not specify which doctor, but he does report that he has been taking all of his other home medications. Patient does admit to drinking "his average" daily amount of alcohol which is reported by patient to be 24 12oz. cans of beer ([employer]). An EKG in the ED showed atrial fibrillation with a rate of [address] segment elevation and he was administered two stat doses of cardizem, one at 0123 and one at 0240. [place] [facility] [place], AF with RVR and alcohol withdrawal on 10/25/2016 and discharged home with the medications listed in his medication summary. Patient was admitted to [facility] and Dr. Haile cardiology was consulted. Head CT was negative for acute abnormalities. Patient was started on CIWA protocol. Patient was started on cardizem, digoxin, and lopressor for Afib with RVR and lisinopril for hypertension. His transaminitis had improved since prior visit. Home medications were continued for hypothyroidism. On 10/30 patient was refusing further treatment and management and decided to sign out against medical advice. He was counseled at great lengths regarding the risks of doing so but was adamant upon leaving. Nurse witnessed conversation and AMA documentation is in patient's chart. Discharge Exam - Head Exam Head Exam: ATRAUMATIC, NORMOCEPHALIC - Eye Exam Eye Exam: Normal appearance. absent: Conjunctival injection, Scleral icterus Pupil Exam: NORMAL ACCOMODATION Additional comments: R periorbital bruising - ENT Exam ENT Exam: Mucous Membranes Moist - Neck Exam Neck exam: Normal Inspection - Respiratory Exam Respiratory Exam: Clear to PA & Lateral, NORMAL BREATHING PATTERN. absent: Rales, Rhonchi, Wheezes - Cardiovascular Exam Cardiovascular Exam: Irregular Rhythm, +S1, +S2 - GI/Abdominal Exam GI & Abdominal Exam: Normal Bowel Sounds, Soft. absent: Tenderness - Extremities Exam Extremities exam: normal capillary refill, normal inspection, pedal pulses present - Back Exam Back exam: absent: rash noted - Neurological Exam Neurological exam: Alert, Oriented x3 - Psychiatric Exam Psychiatric exam: Normal Affect, Normal Mood - Skin Skin Exam: Dry, Intact, Normal Color, Warm Discharge Plan - Follow Up Plan Condition: STABLE Disposition: AGAINST MEDICAL ADVICE Instructions: Hypertension (DC), Hypertension (GEN) Referrals: Kenneth Gandhi MD [Primary Care Provider] - <Edwin Caal - Last Filed: 10/31/16 19:28> Provider - Provider Date of Admission: 10/28/16 04:01 Attending physician: Tere Ndiaye MD Primary care physician: Kenneth Gandhi MD Hospital Course - Lab Results Lab Results: Most Recent Lab Values WBC 2.9 10^3/ul (4.5-11.0) L* 10/29/16 07:46 RBC 3.56 10^6/uL (3.5-6.1) 10/29/16 07:46 Hgb 11.1 g/dL (14.0-18.0) L 10/29/16 07:46 Hct 33.0 % (42.0-52.0) L 10/29/16 07:46 MCV 92.7 fl (80.0-105.0) 10/29/16 07:46 MCH 31.2 pg (25.0-35.0) 10/29/16 07:46 MCHC 33.6 g/dl (31.0-37.0) 10/29/16 07:46 RDW 17.4 % (11.5-14.5) H 10/29/16 07:46 Plt Count 165 10^3/uL (120.0-450.0) 10/29/16 07:46 MPV 9.7 fl (7.0-11.0) 10/29/16 07:46 Gran % [employer]vertising Copy Writer 10/28/16 22:31 Lymph % (Auto) [employer] Writer 10/28/16 22:31 Finney % (Auto) [employer] Writer 10/28/16 22:31 Eos % (Auto) [employer] Writer 10/28/16 22:31 Baso % (Auto) [employer] 10/28/16 22:31 Gran # [employer] Writer 10/28/16 22:31 Lymph # [employer] Writer 10/28/16 22:31 Finney # [employer]vertising Copy Writer 10/28/16 22:31 Eos # [employer]vertising Copy Writer 10/28/16 22:31 Baso # [employer]vertising Copy Writer 10/28/16 22:31 Neutrophils % (Manual) 51 % (50.0-70.0) 10/29/16 07:46 Band Neutrophils % 2 % (0-2) 10/28/16 22:31 Lymphocytes % (Manual) 28 % (22.0-35.0) 10/29/16 07:46 Monocytes % (Manual) 18 % (1.0-6.0) H 10/29/16 07:46 Eosinophils % (Manual) 1 % (0.0-3.0) 10/29/16 07:46 Basophils % (Manual) 1 % (0.0-1.0) 10/29/16 07:46 Myelocytes % 1 % 10/29/16 07:46 Platelet Evaluation Normal (NORMAL) 10/29/16 07:46 PT 10.8 Seconds (9.9-11.8) 10/28/16 01:55 INR 1.00 (0.93-1.08) 10/28/16 01:55 APTT 29.0 Seconds (23.7-30.8) 10/28/16 01:55 Sodium 133 mmol/L (132-148) 10/29/16 07:46 Potassium 4.8 mmol/L (3.6-5.0) 10/29/16 07:46 Chloride 100 mmol/L (98-107) 10/29/16 07:46 Carbon Dioxide 25 mmol/L (21-33) 10/29/16 07:46 Anion Gap 13 (10-20) 10/29/16 07:46 BUN 9 mg/dL (7-21) 10/29/16 07:46 Creatinine 0.6 mg/dL (0.5-1.4) 10/29/16 07:46 Est GFR ( Amer) > 60 10/29/16 07:46 Est GFR (Non-Af Amer) > 60 10/29/16 07:46 Random Glucose 86 mg/dL (70-110) 10/29/16 07:46 Calcium 9.2 mg/dL (8.4-10.5) 10/29/16 07:46 Phosphorus 4.0 mg/dL (2.5-4.5) 10/29/16 07:46 Magnesium 1.6 mg/dL (1.7-2.2) L 10/29/16 07:46 Total Bilirubin 1.7 mg/dL (0.2-1.3) H 10/28/16 02:55 AST 146 U/L (15-59) H 10/28/16 02:55 ALT 111 U/L (7-56) H 10/28/16 02:55 Alkaline Phosphatase 115 U/L (38-133) 10/28/16 02:55 Lactate Dehydrogenase 483 U/L (333-699) 10/28/16 02:55 Total Creatine Kinase < 20 U/L (35-230) L 10/28/16 02:55 Troponin I < 0.01 ng/mL 10/28/16 02:55 NT-Pro-B Natriuret Pep 781 pg/mL (0-450) H 10/28/16 02:55 Total Protein 7.2 g/dL (5.8-8.3) 10/28/16 02:55 Albumin 3.6 g/dL (3.0-4.8) 10/28/16 02:55 Globulin 3.5 gm/dL 10/28/16 02:55 Albumin/Globulin Ratio 1.0 (1.1-1.8) L 10/28/16 02:55 Digoxin 0.4 ng/mL (0.8-2.0) L 10/28/16 01:55 Urine Opiates Screen Negative (NEGATIVE) 10/28/16 04:55 Urine Methadone Screen Negative (NEGATIVE) 10/28/16 04:55 Ur Barbiturates Screen Negative (NEGATIVE) 10/28/16 04:55 Ur Phencyclidine Scrn Negative (NEGATIVE) 10/28/16 04:55 Ur Amphetamines Screen Negative (NEGATIVE) 10/28/16 04:55 U Benzodiazepines Scrn Negative (NEGATIVE) 10/28/16 04:55 U Oth Cocaine Metabols Negative (NEGATIVE) 10/28/16 04:55 U Cannabinoids Screen Negative (NEGATIVE) 10/28/16 04:55 Alcohol, Quantitative 271 mg/dL (0-10) H 10/28/16 01:55 Attending/Attestation - Attestation I have personally seen and examined this patient.: No I have fully participated in the care of the patient.: Yes I have reviewed all pertinent clinical information, including history, physical exam and plan: Yes Notes (Text): 10/31/16 19:28 Agree with medical administrative specialist.
== END 2016-10-30 04:30 | disposition left against medical advice (07) ==
LOC: ED 00:29 → ERH 04:01 → 2RSO 13:40 → 5RSO 10-29 18:17
PROVIDERS: ADMIT Internal Medicine; ATTEND Internal Medicine
DX: I48.0 Paroxysmal atrial fibrillation (principal); F10.239 Alcohol dependence with withdrawal, unspecified; I42.6 Alcoholic cardiomyopathy; K27.9 Peptic ulcer, site unspecified, unspecified as acute or chronic, without hemorrhage or perforation; I10 Essential (primary) hypertension; I49.5 Sick sinus syndrome; Y90.8 Blood alcohol level of 240 mg/100 ml or more; Z95.0 Presence of cardiac pacemaker; Z91.14 Patient's other noncompliance with medication regimen; E03.9 Hypothyroidism, unspecified
CPT/HCPCS: 36415; 70450; 71010; 80048; 80053; 80162; 80320; 80324; 80345; 80346; 80349; 80353; 80358; 80361; 82550; 83615; 83735; 83880; 83992; 84100; 84484; 85025; 85610; 85730; 93005; 96361; 96365; 96366; 96367; 96375; 96376; 99285; C9113; G0378; J2060; J2405; J3411; J3475; J7040; J7070

== ENCOUNTER 2016-11-01 02:38 | Observation (INO) | payer MEDICAID ==
[2016-11-01 02:39] VITALS: BMI 33.9
--- NOTE | 2016-11-01 03:09 | ED PDOC ---
Arrival/HPI - General Chief Complaint: Palpitations Time Seen by Provider: 11/01/16 02:40 Historian: Patient - History of Present Illness Narrative History of Present Illness (Text): 11/01/16 03:06 Elvis Ybarra is a 51 year old male, whose past medical history includes paroxysmal A-fib, tachy-viki syndrome s/p pacemaker, hypertension, cardiomyopathy, and alcohol abuse, presents to the emergency department complaining of palpitations since yesterday. States that symptoms are similar to previous episodes of rapid A-fib. States that symptoms are associated with chest pressure. Denies fever, chills, headache, dizziness, shortness of breath, abdominal pain, nausea, vomiting, diarrhea, or any other complaints at this time. Time/Duration: Other (yesterday ) Symptom Onset: Gradual Severity Level: Mild Activities at Onset: Light Past Medical History - Provider Review Nursing Documentation Reviewed: Yes - Past History Past History: No Previous (hx of afib, svt) - Infectious Disease Hx of Infectious Diseases: None - Tetanus Immunization Tetanus Immunization: Unknown - Cardiac Hx Cardiac Disorders: Yes Hx Cardiac Arrhythmia: Yes (a fib svt palpitations) Hx Hypertension: Yes Hx Pacemaker: Yes (2014) Hx Peripheral Edema: Yes (ble +1) Other/Comment: born with truncus arteriosus - Pulmonary Hx Respiratory Disorders: No Hx Chronic Obstructive Pulmonary Disease (COPD): No - Neurological Hx Neurological Disorder: No HX Cerebrovascular Accident: No Hx Dizziness: Yes Hx Seizures: (pt denies) - HEENT Hx HEENT Disorder: Yes (eyeglasses) Hx Blind: No Hx Cataracts: No Hx Deafness: No Hx Difficulty Chewing: No Hx Epistaxis: No Hx Glaucoma: No Hx Macular Degeneration: No Other/Comment: 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 related noise exposure - Renal Hx Renal Disorder: No Hx Renal Failure: No - Endocrine/Metabolic Hx Endocrine Disorders: No Hx Diabetes Mellitus Type 1: No Hx Diabetes Mellitus Type 2: No Hx Hypothyroidism: No - Hematological/Oncological Hx Blood Disorders: No Hx AIDS: No Hx Anemia: No Hx Cancer: No Hx Chemotherapy: No Hx Cirrhosis: No Hx Hemophilia: No Hx Hepatitis A: No Hx Hepatitis B: No Hx Hepatitis C: No Hx Metastasis: No Hx Shingles: No Hx Sickle Cell Disease: No Hx Unexplained Bleeding: No - Integumentary Hx Dermatological Disorder: No Hx Basal Cell Carcinoma: No Hx Eczema: No Hx Melanoma: No Hx Psoriasis: No Hx Squamous Cell Carcinoma: No Other/Comment: tatoos, bruise to left abd and rib area, left eye orbit eccymosis fell at home 10/18/16 - Musculoskeletal/Rheumatological Hx Falls: Yes - Gastrointestinal Hx Gastrointestinal Disorders: Yes Hx Colostomy: No Hx Crohn's Disease: No Hx Diverticulitis: No Hx Gall Bladder Disease: No Hx Gastroesophageal Reflux: Yes Hx Ileostomy: No Hx Liver Failure: No Hx Pancreatitis: No HX Swallowing Problems: No Other/Comment: perforated ulcer X2, had sx twice, rectal bleeding due to perforations - Genitourinary/Gynecological Hx Genitourinary Disorders: No Hx Hematuria: No Hx Incontinence: No Hx Prostate Problems: No Hx Sexually Transmitted Diseases: No Hx Urinary Tract Infection: No - Psychiatric Hx Psychophysiologic Disorder: Yes (ETOH abuse drinks 1/2 to 1 case beer per day ) Hx Anxiety: No Hx Bipolar Disorder: No Hx Depression: No Hx Hallucinations: No Hx Panic Disorder: No Hx Post Traumatic Stress Disorder: No Hx Psychosis: No Hx Schizophrenia: No Hx Sexual Abuse: No Hx Substance Use: No Other/Comment: ETOH, drinks 1 case of beer a day, smokes a cigar 1 every 2 months denies substance use - Surgical History Hx Amputation: No Hx Appendectomy: No Hx Cardiac Catheterization: No Hx Cholecystectomy: No Hx Coronary Stent: No Hx Gastric Bypass Surgery: Yes (around 10 yrs ago used to weigh 360 lbs) Hx Hysterectomy: No Hx Joint Replacement: No Hx Kidney Transplant: No Hx Liver Transplant: No Hx Mastectomy: No Hx Musculoskeletal Surgery: No Hx Open Heart Surgery: Yes (pacemAKER 2014) Hx Orthopedic Surgery: No Hx Splenectomy: No Hx Valve Replacement: No - Anesthesia Hx Anesthesia: Yes Hx Anesthesia Reactions: No Hx Malignant Hyperthermia: No - Suicidal Assessment Feels Threatened In Home Enviroment: No Family/Social History - Physician Review Nursing Documentation Reviewed: Yes Family/Social History: No Known Family HX Smoking Status: Light Smoker < 10 Cigarettes Daily Hx Alcohol Use: Yes (daily beer 1/2 to 1 case a day) Amount per day: 6 Hx Substance Use: No Hx Substance Use Treatment: No Allergies/Home Meds Allergies/Adverse Reactions: Allergies No Known Allergies Allergy (Verified 10/28/16 00:55) Home Medications: Home Meds Medication Instructions Recorded Confirmed Digoxin [Digitek] 125 mcg PO DAILY 10/28/16 11/01/16 Diltiazem HCl [Diltiazem ER] 120 mg PO DAILY 10/28/16 11/01/16 Famotidine [Pepcid] 40 mg PO DAILY 10/28/16 11/01/16 Ferrous Sulfate [Feosol] 325 mg PO TID 10/28/16 11/01/16 Folic Acid 1 mg PO DAILY 10/28/16 11/01/16 Furosemide [Lasix] 20 mg PO DAILY 10/28/16 11/01/16 Multivitamin [Daily Michael] 1 tab PO DAILY 10/28/16 11/01/16 Thiamine HCl [Vitamin B-1] 50 mg PO DAILY 10/28/16 11/01/16 Review of Systems - Physician Review All systems were reviewed & negative as marked: Yes - Review of Systems Constitutional: Normal. absent: Fatigue, Fevers Respiratory: absent: SOB, Cough, Sputum Cardiovascular: Chest Pain (chest pressure ), Palpitations Gastrointestinal: Normal. absent: Abdominal Pain, Diarrhea, Nausea, Vomiting Neurological: Normal. absent: Headache, Dizziness Physical Exam Vital Signs Reviewed: Yes Vital Signs Temp Pulse Resp BP Pulse Ox 11/01/16 04:29 77 111/62 11/01/16 03:57 119 H 104/72 11/01/16 02:57 97.9 F 11/01/16 02:54 108 H 18 104/79 97 Temperature: Afebrile Blood Pressure: Normal Pulse: Tachycardic Respiratory Rate: Normal Appearance: Positive for: Well-Appearing, Non-Toxic, Comfortable Pain Distress: None Mental Status: Positive for: Alert and Oriented X 3 - Systems Exam Head: Present: Atraumatic, Normocephalic Pupils: Present: PERRL Mouth: Present: Moist Mucous Membranes Respiratory/Chest: Present: Clear to Auscultation, Good Air Exchange. No: Respiratory Distress, Accessory Muscle Use Cardiovascular: Present: Normal S1, S2, Irregular Rhythm (Irregularly irregular rhythm ). No: Murmurs Abdomen: Present: Normal Bowel Sounds. No: Tenderness, Distention, Peritoneal Signs Upper Extremity: Present: Normal Inspection. No: Cyanosis, Edema Lower Extremity: Present: Normal Inspection. No: Edema Neurological: Present: GCS=15, CN II-XII Intact, Speech Normal Skin: Present: Warm, Dry, Normal Color. No: Rashes Psychiatric: Present: Alert, Oriented x 3, Normal Insight, Normal Concentration Medical Decision Making ED Course and Treatment: 11/01/16 03:13 Impression: A 51 year old male who presents to the emergency department complaining of palpitations and chest pressure. Plan: -- EKG -- Labs, cardiac enzymes -- CXR - Reassess and disposition Progress Notes: 11/01/16 03:34 EKG interpreted by : A-fib @ 114 bpm with rapid ventricular response. ST/T changes anterolaterally. no changes from previous. 11/01/16 04:08 CXR interpreted by me: Cardiomegaly. no acute process. 11/01/16 05:[address] Caal who is aware and agrees with the plan to observe patient at telemetry for chest pain and rapid a-fib. Accepts patient under hospitalist service. - Lab Interpretations Lab Results: 11/01/16 03:15 11/01/16 03:15 Lab Results 11/01/16 03:15: WBC 4.1 L D, RBC 3.67, Hgb 11.6 L, Hct 33.4 L, MCV 91.0, MCH 31.6, MCHC 34.7, RDW 16.2 H, Plt Count 248, MPV 8.9 11/01/16 03:15: Sodium 134, Potassium 3.9, Chloride 103, Carbon Dioxide 18 L, Anion Gap 17, BUN 7, Creatinine 0.6, Est GFR ( Amer) > 60, Est GFR (Non- Af Amer) > 60, Random Glucose 51 L, Calcium 8.0 L, Total Bilirubin 1.4 H, AST 124 H, ALT 85 H, Alkaline Phosphatase 102, Lactate Dehydrogenase 455, Total Creatine Kinase 25 L, Troponin I < 0.01, Total Protein 6.5, Albumin 3.3, Globulin 3.2, Albumin/Globulin Ratio 1.0 L 11/01/16 03:15: PT 11.6, INR 1.07, APTT 31.5 H I have reviewed the lab results: Yes - RAD Interpretation Radiology Orders: 11/01/16 03:01 CHEST PORTABLE [RAD] Stat - EKG Interpretation Interpreted by ED Physician: Yes Type: 12 lead EKG - Medication Orders Current Medication Orders: diltiaZEM IVPB 100mg in NS (Cardizem 100mg In Ns) 100 mls @ 5 mls/hr IV .Q20H PRN; Protocol; 5 MG/HR PRN Reason: TITRATE PER MD ORDER Last Admin: 11/01/16 04:29 Dose: 5 mls/hr Discontinued Medications Dextrose (Dextrose 50% Inj) 50 ml IVP ONCE ONE Stop: 11/01/16 04:07 Last Admin: 11/01/16 04:29 Dose: 50 ml Diltiazem HCl (Cardizem) 20 mg IVP ONCE ONE Stop: 11/01/16 03:31 Last Admin: 11/01/16 03:57 Dose: 20 mg Oxycodone/Acetaminophen (Percocet 5/325 Mg Tab) 1 tab PO STAT STA Stop: 11/01/16 04:39 Last Admin: 11/01/16 04:51 Dose: 1 tab - Scribe Statement The provider has reviewed the documentation as recorded by the Umer Burch Provider Attestation: All medical record entries made by the Tristonibafia were at my direction and personally dictated by me. I have reviewed the chart and agree that the record accurately reflects my personal performance of the history, physical exam, medical decision making, and the department course for this patient. I have also personally directed, reviewed, and agree with the discharge instructions and disposition. Disposition/Present on Arrival - Present on Arrival Any Indicators Present on Arrival: No History of DVT/PE: No History of Uncontrolled Diabetes: No Urinary Catheter: No History of Decub. Ulcer: No History Surgical Site Infection Following: None - Disposition Have Diagnosis and Disposition been Completed?: Yes Diagnosis: Rapid atrial fibrillation, Chest pain Disposition: HOSPITALIZED Disposition Time: 05:00 Patient Plan: Observation Condition: STABLE Discharge Instructions (ExitCare): Chest Pain (ED) Forms: [employer] ([place]rian)
[2016-11-01 03:33] LABS: HEMOGLOBIN 11.6 g/dL (14.0-18.0); MEAN CORPUSCULAR HEMOGLOBIN 31.6 pg (25.0-35.0); MEAN CORPUSCULAR HGB CONC 34.7 g/dl (31.0-37.0); MEAN PLATELET VOLUME 8.9 fl (7.0-11.0); RBC 3.67 10^6/uL (3.5-6.1); RED CELL DISTRIBUTION WIDTH 16.2 % (11.5-14.5); WHITE BLOOD COUNT 4.1 10^3/ul (4.5-11.0)
[2016-11-01 03:41] LABS: ALBUMIN 3.3 g/dL (3.0-4.8); ALT/SGPT 85 U/L (7-56); AST/SGOT 124 U/L (15-59); BLOOD UREA NITROGEN 7 mg/dL (7-21); GFR AFRICAN-AMERICAN > 60; GFR NON-AFRICAN AMERICAN > 60
[2016-11-01 03:46] LABS: INR 1.07 (0.93-1.08); PARTIAL THROMBOPLASTIN TIME 31.5 Seconds (23.7-30.8); PROTHROMBIN TIME 11.6 Seconds (9.9-11.8)
[2016-11-01] MEDS ORDERED: diltiaZEM IVPB 100mg in NS 100 ML IV PRN (03:46)
[2016-11-01 03:53] LABS: TROPONIN I < 0.01 ng/mL
[2016-11-01] MEDS ORDERED: Dextrose 50% SYRINGE Inj (50 ml) IVP ONE (04:06)
[2016-11-01] MEDS ORDERED: Oxycodone/Acetaminophen 5/325 mg Tab PO STA (04:38)
--- NOTE | 2016-11-01 05:56 | CP.PCM.HP ---
History of Present Illness - History of Present Illness History of Present Illness: 51 year old white male who signed out AMA day before yesterday is back here, states that he had palpitation and chest pain, his heart rate was in 120's, so he came back , denies any chest pain or palpitations now,denies nausea, vomiting , sweating, sob, cough.Chest pain was across chest , no radiation, lasted for few seconds. ALLERGIES:No known drug allergies. PMH:Atrial fibrillation. Tachybrady syndrome. HTN. CHF. Cardiomyopathy. Alcohol abuse. Palpitations. SVT. Rectal bleeding. Perforated ulcer. Diverticulitis. Pancreatitis. Depression. Migraine. PAST SURGICAL HISTORY:Insertion of Pacemaker. Left hand repair. Gastric bypass surgery. FH:Mother-Ovarian cancer. SOCIAL HISTORY: ETOH-Moderate. Denies smoking or drug abuse. Worked as a tal[employer]. Lives in [place]. PMD: Hiram Cooper. HOME MEDS: Home Meds Medication Instructions Recorded Confirmed Digoxin [Digitek] 125 mcg PO DAILY 10/28/16 11/01/16 Diltiazem HCl [Diltiazem ER] 120 mg PO DAILY 10/28/16 11/01/16 Famotidine [Pepcid] 40 mg PO DAILY 10/28/16 11/01/16 Ferrous Sulfate [Feosol] 325 mg PO TID 10/28/16 11/01/16 Folic Acid 1 mg PO DAILY 10/28/16 11/01/16 Furosemide [Lasix] 20 mg PO DAILY 10/28/16 11/01/16 Multivitamin [Daily Michael] 1 tab PO DAILY 10/28/16 11/01/16 Thiamine HCl [Vitamin B-1] 50 mg PO DAILY 10/28/16 11/01/16 ROS:13 point review of systems negative except as mentioned above. Present on Admission - Present on Admission Any Indicators Present on Admission: No History of DVT/PE: No History of Uncontrolled Diabetes: No Urinary Catheter: No Decubitus Ulcer Present: No History Surgical Site Infection Following: None Review of Systems - Review of Systems All systems: reviewed and no additional remarkable complaints except (as mentioned in HPI.) Past Patient History - Infectious Disease Hx of Infectious Diseases: None - Tetanus Immunizations Tetanus Immunization: Unknown - Past Medical History & Family History Past Medical History?: Yes - Past Social History Smoking Status: Light Smoker < 10 Cigarettes Daily Alcohol: Other (See HPI.) - CARDIAC Hx Cardiac Disorders: Yes Hx Cardia Arrhythmia: Yes (a fib svt palpitations) Hx Hypertension: Yes Hx Pacemaker: Yes (2015) Hx Peripheral Edema: Yes (ble +1) Other/Comment: born with truncus arteriosus - PULMONARY Hx Respiratory Disorders: No Hx Chronic Obstructive Pulmonary Disease (COPD): No - NEUROLOGICAL Hx Neurological Disorder: No HX Cerebrovascular Accident: No Hx Dizziness: Yes Hx Seizures: (pt denies) - HEENT Hx HEENT Problems: Yes (eyeglasses) Hx Blind: No Hx Cataracts: No Hx Deafness: No Hx Difficulty Chewing: No Hx Epistaxis: No Hx Glaucoma: No Hx Macular Degeneration: No Other/Comment: 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 related noise exposure - RENAL Hx Chronic Kidney Disease: No Hx Renal Failure: No - ENDOCRINE/METABOLIC Hx Endocrine Disorders: No Hx Diabetes Mellitus Type 1: No Hx Diabetes Mellitus Type 2: No Hx Hypothyroidism: No - HEMATOLOGICAL/ONCOLOGICAL Hx Blood Disorders: No Hx AIDS: No Hx Anemia: No Hx Cancer: No Hx Chemotherapy: No Hx Cirrhosis: No Hx Hemophilia: No Hx Hepatitis A: No Hx Hepatitis B: No Hx Hepatitis C: No Hx Metastesis: No Hx Shingles: No Hx Sickle Cell Disease: No Hx Unexplained Bleeding: No - INTEGUMENTARY Hx Dermatological Problems: No Hx Basil Cell: No Hx Eczema: No Hx Melanoma: No Hx Psoriasis: No Hx Squamous Cell: No Other/Comment: tatoos, bruise to left abd and rib area, left eye orbit eccymosis fell at home 10/18/16 - MUSCULOSKELETAL/RHEUMATOLOGICAL Hx Falls: Yes - GASTROINTESTINAL Hx Gastrointestinal Disorders: Yes Hx Colostomy: No Hx Crohn's Disease: No Hx Diverticulitis: No Hx Gall Bladder Disease: No Hx Gastroesophageal Reflux: Yes Hx Ileostomy: No Hx Liver Failure: No Hx Pancreatitis: No HX Swallowing Problems: No Other/Comment: perforated ulcer X2, had sx twice, rectal bleeding due to perforations - GENITOURINARY/GYNECOLOGICAL Hx Genitourinary Disorders: No Hx Hematuria: No Hx Incontinence: No Hx Prostate Problems: No Hx Sexually Transmitted Disorders: No Hx Urinary Tract Infection: No - PSYCHIATRIC Hx Psychophysiologic Disorder: Yes (ETOH abuse drinks 1/2 to 1 case beer per day ) Hx Anxiety: No Hx Bipolar Disorder: No Hx Depression: No Hx Hallucinations: No Hx Panic Symptoms: No Hx Post Traumatic Stress Disorder: No Hx Psychosis: No Hx Schizophrenia: No Hx Sexual Abuse: No Hx Substance Use: No Other/Comment: ETOH, drinks 1 case of beer a day, smokes a cigar 1 every 2 months denies substance use - SURGICAL HISTORY Hx Amputation: No Hx Appendectomy: No Hx Cardiac Catheterization: No Hx Cholecystectomy: No Hx Coronary Stent: No Hx Gastric Bypass Surgery: Yes (around 10 yrs ago used to weigh 360 lbs) Hx Hysterectomy: No Hx Joint Replacement: No Hx Kidney Transplant: No Hx Liver Transplant: No Hx Mastectomy: No Hx Musculoskeletal Surgery: No Hx Open Heart Surgery: Yes (pacemAKER 2014) Hx Orthopedic Surgery: No Hx Splenectomy: No Hx Valve Replacement: No - ANESTHESIA Hx Anesthesia: Yes Hx Anesthesia Reactions: No Hx Malignant Hyperthermia: No Meds Allergies/Adverse Reactions: Allergies Allergy/AdvReac Type Severity Reaction Status Date / Time No Known Allergies Allergy Verified 10/28/16 00:55 Physical Exam - Constitutional Appears: Well, No Acute Distress - Head Exam Head Exam: ATRAUMATIC, NORMAL INSPECTION, NORMOCEPHALIC - Eye Exam Eye Exam: Normal appearance - ENT Exam ENT Exam: Mucous Membranes Moist, Normal External Ear Exam, Normal Oropharynx - Neck Exam Neck exam: Positive for: Normal Inspection. Negative for: Lymphadenopathy, Thyromegaly - Respiratory Exam Respiratory Exam: Clear to Auscultation Bilateral, NORMAL BREATHING PATTERN. absent: Accessory Muscle Use, Chest Wall Tenderness, Prolonged Expiratory Phase , Rhonchi, Wheezes, Respiratory Distress, Stridor - Cardiovascular Exam Cardiovascular Exam: Irregular Rhythm, +S1 (Normal.), +S2 (Normal.). absent: JVD - GI/Abdominal Exam GI & Abdominal Exam: Normal Bowel Sounds, Soft - Rectal Exam Rectal Exam: Deferred - Exam Additional comments: Deferred. - Extremities Exam Extremities exam: Positive for: normal inspection - Back Exam Back exam: CVA tenderness (L) - Neurological Exam Neurological exam: Alert, Oriented x3 - Psychiatric Exam Psychiatric exam: Normal Affect, Normal Mood - Skin Skin Exam: Normal Color Results - Vital Signs Recent Vital Signs: Last Vital Signs Temp 97.9 F 11/01/16 02:57 Pulse 94 H 11/01/16 05:17 Resp 19 11/01/16 05:17 BP 114/62 11/01/16 05:17 Pulse Ox 99 11/01/16 05:17 - Labs Result Diagrams: 11/01/16 03:15 11/01/16 03:15 - EKG Data EKG Interpreted by: Myself - EKG Data Interpretation: Acute Ischemia - Impressions Impression: Atrial fibrillation, anteriorlateral ischemia. - Imaging and Cardiology Chest x-ray Status: Image reviewed by me (Pacemaker present, no acute pathology.) Assessment & Plan - Assessment and Plan (Free Text) Assessment: Palpitations. Chest pain. Anterior lateral ischemia. CHF. HTN. Cardiomyopathy. Atrial fibrillation. Alcohol abuse. Depression. Migraine. Hx Tachbrady syndrome. Hx SVT. Borderline anemia. Hypoglycemia. Elevated LFT's. Plan: Admitted to telemetry. Heart healthy diet. Serial EKG. Serial cardiac enzymes. Cardiology consultation. Oxygen. Nitrites prn. Analgesic prn. Continue home medications. Repeat labs in the morning. - Date & Time Date: 11/01/16 Time: 06:06
[2016-11-01] MEDS ORDERED: Levothyroxine 25 MCG TAB PO SCH (06:30)
[2016-11-01 07:17] LABS: BASO # 0.01 K/mm3 (0.0-2.0); BASO % 0.3 % (0.0-3.0); EOS % 0.8 % (1.5-5.0); GRAN # 2.33 (1.4-6.5); GRAN % 59.7 % (50.0-68.0); HEMOGLOBIN 11.3 g/dL (14.0-18.0); LYMPH # 1.1 (1.2-3.4); LYMPH % 28.7 % (22.0-35.0); MEAN CELL VOLUME 90.8 fl (80.0-105.0); MEAN CORPUSCULAR HEMOGLOBIN 31.5 pg (25.0-35.0); MEAN CORPUSCULAR HGB CONC 34.7 g/dl (31.0-37.0); MONO # 0.4 (0.1-0.6); MONO % 10.5 % (1.0-6.0); PLATELET COUNT 211 10^3/uL (120.0-450.0); RBC 3.59 10^6/uL (3.5-6.1); RED CELL DISTRIBUTION WIDTH 16.4 % (11.5-14.5); WHITE BLOOD COUNT 3.9 10^3/ul (4.5-11.0)
[2016-11-01 07:27] LABS: BLOOD UREA NITROGEN 7 mg/dL (7-21); CALCIUM 8.1 mg/dL (8.4-10.5); GFR AFRICAN-AMERICAN > 60; GFR NON-AFRICAN AMERICAN > 60; MAGNESIUM 1.7 mg/dL (1.7-2.2)
[2016-11-01 07:38] LABS: B-TYPE NATRIURETIC PEPTIDE 774 pg/mL (0-450)
[2016-11-01 07:50] LABS: TROPONIN I < 0.01 ng/mL
--- NOTE | 2016-11-01 09:02 | RAD ---
HISTORY: chest pain COMPARISON: 10/28/2016 FINDINGS: LUNGS: No active pulmonary disease. PLEURA: No significant pleural effusion identified, no pneumothorax apparent. CARDIOVASCULAR: Mild cardiomegaly. Single lead pacemaker OSSEOUS STRUCTURES: No significant abnormalities. VISUALIZED UPPER ABDOMEN: Normal. OTHER FINDINGS: None. IMPRESSION: No active disease.
[2016-11-01 09:08] VITALS: O2SAT 99
[2016-11-01] MEDS ORDERED: Enoxaparin 40 mg Syringe SC SCH (10:00)
[2016-11-01] MEDS ORDERED: diltiaZEM 120 mg/24 Hours CD Cap PO SCH ×2 (10:00)
[2016-11-01] MEDS ORDERED: Digoxin 125 mcg (0.125 mg) Tab PO SCH ×2 (10:00)
[2016-11-01] MEDS ORDERED: diltiaZEM 180 mg/24 Hours CD Cap PO SCH (10:00)
[2016-11-01] MEDS ORDERED: Multivitamin Therapeutic Tab PO SCH (10:00)
--- NOTE | 2016-11-01 11:07 | CT ---
PROCEDURE: CT HEAD WITHOUT CONTRAST. HISTORY: s/p fall COMPARISON: 10/28/2016 TECHNIQUE: Axial computed tomography images were obtained through the head/brain without intravenous contrast. Radiation dose: Total exam DLP = 824 mGy-cm. This CT exam was performed using one or more of the following dose reduction techniques: Automated exposure control, adjustment of the mA and/or kV according to patient size, and/or use of iterative reconstruction technique. FINDINGS: HEMORRHAGE: No intracranial hemorrhage. BRAIN: No mass effect or edema. There is moderate atrophy. No acute findings VENTRICLES: Unremarkable. No hydrocephalus. CALVARIUM: Unremarkable. PARANASAL SINUSES: Unremarkable as visualized. No significant inflammatory changes. MASTOID AIR CELLS: Unremarkable as visualized. No inflammatory changes. OTHER FINDINGS: None. IMPRESSION: No acute findings
[2016-11-01] MEDS ORDERED: Metoprolol 1 mg/ml Inj IVP PRN (11:38)
--- NOTE | 2016-11-01 11:46 | CARD ---
APPROVED REPORT EKG Measurement Heart [id number] <Conclusion> Atrial fibrillation Cannot rule out Inferior infarct, age undetermined ST & T wave abnormality, consider anterior ischemia or digitalis effect Abnormal ECG
--- NOTE | 2016-11-01 11:47 | CARD ---
APPROVED REPORT EKG Measurement Heart [id number] <Conclusion> Atrial fibrillation with rapid ventricular response ST & T wave abnormality, consider anterolateral ischemia or digitalis effect Abnormal ECG
[2016-11-01 12:51] VITALS: PULSE 90
[2016-11-01] MEDS ORDERED: Pneumococcal 23-Valent Vaccine IM ONE (13:48)
[2016-11-01] MEDS ORDERED: Digoxin 250 mcg (0.25 mg) Tab PO SCH (14:00)
[2016-11-01 15:44] VITALS: PULSE 88
[2016-11-01 18:06] VITALS: BP 124/92; RESP 20; TEMP 99.3
--- NOTE | 2016-11-01 21:36 | CARD ---
APPROVED REPORT EKG Measurement Heart [id number] <Conclusion> Atrial fibrillation T wave abnormality, consider anterolateral ischemia
--- NOTE | 2016-11-01 22:33 | CON ---
DATE: 11/01/2016 HISTORY OF PRESENT ILLNESS: The patient was just recently discharged. He underwent another alcohol binge and comes back with palpitations. The patient is a 51-year-old male with a history of alcoholism with associated complications including dilated cardiomyopathy, atrial fibrillation. He has had multiple falls after an alcoholic binge. His previous echocardiogram reveals an ejection fraction of 30%. He is on diltiazem and metoprolol, which he is intermittently compliant. Anticoagulation cannot be given because of the dangers of his fall and his alcoholism. Currently the patient is in bed, asleep from arousable. He does admit to his alcohol binge. SOCIAL HISTORY: Noncontributory. REVIEW OF SYSTEMS: Noncontributory. PHYSICAL EXAMINATION VITAL SIGNS: Stable. The patient is afebrile. NECK: Negative JVD. CARDIOPULMONARY: Atrial fibrillation is noted with ventricular rate in the 80s. S1 and S2. LUNGS: Without rales. EXTREMITIES: Without edema. LABORATORY DATA: Reveals an EKG with atrial fibrillation and nonspecific ST-T changes. His BUN and creatinine are unremarkable. Troponins are negative x3. Hemoglobin is 11.3. IMPRESSION: 1. Alcoholism. 2. Repeat alcoholic binge. 3. Alcoholic dilated cardiomyopathy. 4. Chronic atrial fibrillation. 5. Anemia. 6. Recurrent falls after alcoholic binge. PLAN: Given these findings, we will reorder his Cardizem and metoprolol. I have discussed with the patient about the need for an alcohol program, which may need to be inpatient given his recurrence. No further cardiac workup is necessary at this time. We will DC telemetry. Aaron Haile MD
[2016-11-02] MEDS ORDERED: Oxycodone/Acetaminophen 5/325 mg Tab PO STA (02:23)
--- NOTE | 2016-11-02 09:41 | CP.PCM.DIS ---
<Evonne Page - Last Filed: 11/02/16 15:41> Provider - Provider Date of Admission: 11/01/16 05:00 Attending physician: Sincere Pacheco MD Primary care physician: Kenneth Gandhi MD Consults: Cardiology: Mic Time Spent in preparation of Discharge (in minutes): 30 Hospital Course - Lab Results Lab Results: Most Recent Lab Values WBC 3.9 10^3/ul (4.5-11.0) L 11/01/16 07:04 RBC 3.59 10^6/uL (3.5-6.1) 11/01/16 07:04 Hgb 11.3 g/dL (14.0-18.0) L 11/01/16 07:04 Hct 32.6 % (42.0-52.0) L 11/01/16 07:04 MCV 90.8 fl (80.0-105.0) 11/01/16 07:04 MCH 31.5 pg (25.0-35.0) 11/01/16 07:04 MCHC 34.7 g/dl (31.0-37.0) 11/01/16 07:04 RDW 16.4 % (11.5-14.5) H 11/01/16 07:04 Plt Count 211 10^3/uL (120.0-450.0) 11/01/16 07:04 MPV 9.0 fl (7.0-11.0) 11/01/16 07:04 Gran % 59.7 % (50.0-68.0) 11/01/16 07:04 Lymph % (Auto) 28.7 % (22.0-35.0) 11/01/16 07:04 [place] % (Auto) 10.5 % (1.0-6.0) H 11/01/16 07:04 Eos % (Auto) 0.8 % (1.5-5.0) L 11/01/16 07:04 Baso % (Auto) 0.3 % (0.0-3.0) 11/01/16 07:04 Gran # 2.33 (1.4-6.5) 11/01/16 07:04 Lymph # 1.1 (1.2-3.4) L 11/01/16 07:04 [place] # 0.4 (0.1-0.6) 11/01/16 07:04 Eos # 0.0 (0.0-0.7) 11/01/16 07:04 Baso # 0.01 K/mm3 (0.0-2.0) 11/01/16 07:04 PT 11.6 Seconds (9.9-11.8) 11/01/16 03:15 INR 1.07 (0.93-1.08) 11/01/16 03:15 APTT 31.5 Seconds (23.7-30.8) H 11/01/16 03:15 Sodium 134 mmol/L (132-148) 11/01/16 07:04 Potassium 4.1 mmol/L (3.6-5.0) 11/01/16 07:04 Chloride 106 mmol/L (98-107) 11/01/16 07:04 Carbon Dioxide 18 mmol/L (21-33) L 11/01/16 07:04 Anion Gap 14 (10-20) 11/01/16 07:04 BUN 7 mg/dL (7-21) 11/01/16 07:04 Creatinine 0.5 mg/dL (0.5-1.4) 11/01/16 07:04 Est GFR ( Amer) > 60 11/01/16 07:04 Est GFR (Non-Af Amer) > 60 11/01/16 07:04 POC Glucose (mg/dL) 137 mg/dL (65-110) H 11/01/16 06:22 Random Glucose 84 mg/dL (70-110) 11/01/16 07:04 Calcium 8.1 mg/dL (8.4-10.5) L 11/01/16 07:04 Phosphorus 3.6 mg/dL (2.5-4.5) 11/01/16 07:04 Magnesium 1.7 mg/dL (1.7-2.2) 11/01/16 07:04 Total Bilirubin 1.4 mg/dL (0.2-1.3) H 11/01/16 03:15 AST 124 U/L (15-59) H 11/01/16 03:15 ALT 85 U/L (7-56) H 11/01/16 03:15 Alkaline Phosphatase 102 U/L (38-133) 11/01/16 03:15 Lactate Dehydrogenase 455 U/L (333-699) 11/01/16 03:15 Total Creatine Kinase 25 U/L (35-230) L 11/01/16 03:15 Troponin I < 0.01 ng/mL 11/01/16 12:29 NT-Pro-B Natriuret Pep 774 pg/mL (0-450) H 11/01/16 07:04 Total Protein 6.5 g/dL (5.8-8.3) 11/01/16 03:15 Albumin 3.3 g/dL (3.0-4.8) 11/01/16 03:15 Globulin 3.2 gm/dL 11/01/16 03:15 Albumin/Globulin Ratio 1.0 (1.1-1.8) L 11/01/16 03:15 - Hospital Course Hospital Course: 51 year old white male with past medical hx of atrial fibrillation, tachy-viki syndrome s/p pacemaker, HTN, who signed out AMA day before yesterday is back here, states that he had palpitation and chest pain, his heart rate was in 120's , so he came back. Patient also reports falling in the bathroom and hitting the L side of his head on the toilet bowel. States that he drank 12 beers earlier in the day. Denies any chest pain or palpitations now,denies nausea, vomiting, sweating, headache, dizzines, LOC, sob, cough. Chest pain was across chest , no radiation, lasted for few seconds. Patient was found to be in Afib with RVR upon arrival to the ED. Patient was given Cardizem IV push and was subsequently started on a Cardizem drip. Cardiology was consulted and on the case. Patient was also taken for CT head which was negative. Patient was admitted and monitored on telemetry. Rate became controlled. For alcohol withdrawal patient was started on PO multivitamins and ativan. Home medications were resumed. Patient was extensively counseled on importance of alcohol cessation. Upon waking up the next morning, patient wanted to sign out AMA. Patient was AAOx3. Risks of signing out against medical advice were explained to the patient. Patient verbalized understanding and was still adamant about leaving. Discharge Exam - Head Exam Head Exam: ATRAUMATIC, NORMAL INSPECTION, NORMOCEPHALIC - Eye Exam Eye Exam: EOMI, Normal appearance Pupil Exam: NORMAL ACCOMODATION Additional comments: Improving ecchymosis of L periorbital region - ENT Exam ENT Exam: Mucous Membranes Moist - Neck Exam Neck exam: Full Rom - Respiratory Exam Respiratory Exam: Clear to PA & Lateral, NORMAL BREATHING PATTERN, UNREMARKABLE. absent: Rales, Rhonchi, Wheezes - Cardiovascular Exam Cardiovascular Exam: Irregular Rhythm, +S1, +S2 - GI/Abdominal Exam GI & Abdominal Exam: Normal Bowel Sounds, Soft, Unremarkable. absent: Guarding , Rebound, Rigid, Tenderness - Extremities Exam Extremities exam: normal inspection, pedal pulses present - Back Exam Additional comments: +improving ecchymosis of L flank area - Neurological Exam Neurological exam: Alert, CN II-XII Intact, Normal Gait, Oriented x3 - Psychiatric Exam Psychiatric exam: Normal Affect, Normal Mood - Skin Skin Exam: Normal Color, Warm Discharge Plan - Follow Up Plan Condition: STABLE Disposition: AGAINST MEDICAL ADVICE Referrals: Kenneth Gandhi MD [Primary Care Provider] - <Sincere Pacheco - Last Filed: 11/02/16 16:08> Provider - Provider Date of Admission: 11/01/16 05:00 Attending physician: Sincere Pacheco MD Primary care physician: Kenneth Gandhi MD Time Spent in preparation of Discharge (in minutes): 35 Hospital Course - Lab Results Lab Results: Most Recent Lab Values WBC 3.9 10^3/ul (4.5-11.0) L 11/01/16 07:04 RBC 3.59 10^6/uL (3.5-6.1) 11/01/16 07:04 Hgb 11.3 g/dL (14.0-18.0) L 11/01/16 07:04 Hct 32.6 % (42.0-52.0) L 11/01/16 07:04 MCV 90.8 fl (80.0-105.0) 11/01/16 07:04 MCH 31.5 pg (25.0-35.0) 11/01/16 07:04 MCHC 34.7 g/dl (31.0-37.0) 11/01/16 07:04 RDW 16.4 % (11.5-14.5) H 11/01/16 07:04 Plt Count 211 10^3/uL (120.0-450.0) 11/01/16 07:04 MPV 9.0 fl (7.0-11.0) 11/01/16 07:04 Gran % 59.7 % (50.0-68.0) 11/01/16 07:04 Lymph % (Auto) 28.7 % (22.0-35.0) 11/01/16 07:04 [place] % (Auto) 10.5 % (1.0-6.0) H 11/01/16 07:04 Eos % (Auto) 0.8 % (1.5-5.0) L 11/01/16 07:04 Baso % (Auto) 0.3 % (0.0-3.0) 11/01/16 07:04 Gran # 2.33 (1.4-6.5) 11/01/16 07:04 Lymph # 1.1 (1.2-3.4) L 11/01/16 07:04 [place] # 0.4 (0.1-0.6) 11/01/16 07:04 Eos # 0.0 (0.0-0.7) 11/01/16 07:04 Baso # 0.01 K/mm3 (0.0-2.0) 11/01/16 07:04 PT 11.6 Seconds (9.9-11.8) 11/01/16 03:15 INR 1.07 (0.93-1.08) 11/01/16 03:15 APTT 31.5 Seconds (23.7-30.8) H 11/01/16 03:15 Sodium 134 mmol/L (132-148) 11/01/16 07:04 Potassium 4.1 mmol/L (3.6-5.0) 11/01/16 07:04 Chloride 106 mmol/L (98-107) 11/01/16 07:04 Carbon Dioxide 18 mmol/L (21-33) L 11/01/16 07:04 Anion Gap 14 (10-20) 11/01/16 07:04 BUN 7 mg/dL (7-21) 11/01/16 07:04 Creatinine 0.5 mg/dL (0.5-1.4) 11/01/16 07:04 Est GFR ( Amer) > 60 11/01/16 07:04 Est GFR (Non-Af Amer) > 60 11/01/16 07:04 POC Glucose (mg/dL) 137 mg/dL (65-110) H 11/01/16 06:22 Random Glucose 84 mg/dL (70-110) 11/01/16 07:04 Calcium 8.1 mg/dL (8.4-10.5) L 11/01/16 07:04 Phosphorus 3.6 mg/dL (2.5-4.5) 11/01/16 07:04 Magnesium 1.7 mg/dL (1.7-2.2) 11/01/16 07:04 Total Bilirubin 1.4 mg/dL (0.2-1.3) H 11/01/16 03:15 AST 124 U/L (15-59) H 11/01/16 03:15 ALT 85 U/L (7-56) H 11/01/16 03:15 Alkaline Phosphatase 102 U/L (38-133) 11/01/16 03:15 Lactate Dehydrogenase 455 U/L (333-699) 11/01/16 03:15 Total Creatine Kinase 25 U/L (35-230) L 11/01/16 03:15 Troponin I < 0.01 ng/mL 11/01/16 12:29 NT-Pro-B Natriuret Pep 774 pg/mL (0-450) H 11/01/16 07:04 Total Protein 6.5 g/dL (5.8-8.3) 11/01/16 03:15 Albumin 3.3 g/dL (3.0-4.8) 11/01/16 03:15 Globulin 3.2 gm/dL 11/01/16 03:15 Albumin/Globulin Ratio 1.0 (1.1-1.8) L 11/01/16 03:15 Attending/Attestation - Attestation I have personally seen and examined this patient.: No I have fully participated in the care of the patient.: Yes I have reviewed all pertinent clinical information, including history, physical exam and plan: Yes Notes (Text): Agree with the above note with the following additions/ exceptions: Briefly this is 51 year old male with history of atrial fibrillation, tachybrady syndrome s/p PM, HTN who was admitted for palpitations and chest pain. He was found to be in afib with RVR. Patient signed AMA this morning before I could see the patient. Dr Sincere Pacheco
== END 2016-11-02 08:30 | disposition left against medical advice (07) ==
LOC: ED 02:38 → ERH 05:00 → 2RNO 10:21 → 5RSO 22:49
PROVIDERS: ADMIT Internal Medicine; ATTEND Hospitalist
DX: I48.0 Paroxysmal atrial fibrillation (principal); F10.239 Alcohol dependence with withdrawal, unspecified; I42.6 Alcoholic cardiomyopathy; I11.0 Hypertensive heart disease with heart failure; I50.9 Heart failure, unspecified; F32.9 Major depressive disorder, single episode, unspecified; I48.2 Chronic atrial fibrillation; D64.9 Anemia, unspecified; G43.909 Migraine, unspecified, not intractable, without status migrainosus; I49.5 Sick sinus syndrome; Z95.0 Presence of cardiac pacemaker
CPT/HCPCS: 70450; 71010; 80053; 82550; 82948; 83615; 83735; 83880; 84100; 84484; 85025; 85027; 85610; 85730; 93005; 96372; 96374; 96375; 96376; 99285; G0378; J1650; J2060

== ENCOUNTER 2016-11-03 21:46 | Emergency (ER) | payer MEDICAID ==
[2016-11-03 21:46] VITALS: PULSE 88; BMI 33.9
[2016-11-03 22:07] VITALS: BP 103/62; PULSE 74; RESP 20; TEMP 98.9; O2SAT 99
--- NOTE | 2016-11-03 22:34 | ED PDOC ---
Arrival/HPI - General Chief Complaint: Chest Pain Time Seen by Provider: 11/03/16 22:06 - History of Present Illness Narrative History of Present Illness (Text): 11/03/16 22:34 Elvis Ybarra is a 50 year old male, whose past medical history includes tachy -viki syndrome s/p pacemaker placement, paroxysmmal atrial fibrillation, cardiomyopathy, hypertension, PUD, alcohol abuse, perforated ulcer/GI bleed, and gastric bypass, who presents to the ED complaining of palpitations. Patient states he was sitting at home watching TV prior to arrival when he began experiencing palpitations with associated mid-sternal chest pressure. Patient reports symptoms feel similar to previous episodes of atrial fibrillation. Patient denies any fever, chills, shortness of breath, nausea, vomiting, diarrhea, urinary symptoms, back pain, neck pain, headache, dizziness, or any other complaints. Time/Duration: Other (tonight) Symptom Course: Unchanged Activities at Onset: Light Context: Sitting, Home Past Medical History - Provider Review Nursing Documentation Reviewed: Yes - Past History Past History: No Previous (hx of afib, svt) - Infectious Disease Hx of Infectious Diseases: None - Tetanus Immunization Tetanus Immunization: Unknown - Cardiac Hx Cardiac Disorders: Yes Hx Cardiac Arrhythmia: Yes (a fib svt palpitations) Hx Hypertension: Yes Hx Pacemaker: Yes (2014) Hx Peripheral Edema: Yes (ble +1) Other/Comment: born with truncus arteriosus - Pulmonary Hx Respiratory Disorders: No Hx Chronic Obstructive Pulmonary Disease (COPD): No - Neurological Hx Neurological Disorder: No HX Cerebrovascular Accident: No Hx Dizziness: Yes Hx Seizures: (pt denies) - HEENT Hx HEENT Disorder: Yes (eyeglasses) Hx Blind: No Hx Cataracts: No Hx Deafness: No Hx Difficulty Chewing: No Hx Epistaxis: No Hx Glaucoma: No Hx Macular Degeneration: No Other/Comment: 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 related noise exposure - Renal Hx Renal Disorder: No Hx Renal Failure: No - Endocrine/Metabolic Hx Endocrine Disorders: No Hx Diabetes Mellitus Type 1: No Hx Diabetes Mellitus Type 2: No Hx Hypothyroidism: No - Hematological/Oncological Hx Blood Disorders: No Hx AIDS: No Hx Anemia: No Hx Cancer: No Hx Chemotherapy: No Hx Cirrhosis: No Hx Hemophilia: No Hx Hepatitis A: No Hx Hepatitis B: No Hx Hepatitis C: No Hx Metastasis: No Hx Shingles: No Hx Sickle Cell Disease: No Hx Unexplained Bleeding: No - Integumentary Hx Dermatological Disorder: No Hx Basal Cell Carcinoma: No Hx Eczema: No Hx Melanoma: No Hx Psoriasis: No Hx Squamous Cell Carcinoma: No Other/Comment: tatoos, bruise to left abd and rib area, left eye orbit eccymosis fell at home 10/18/16 - Musculoskeletal/Rheumatological Hx Falls: Yes - Gastrointestinal Hx Gastrointestinal Disorders: Yes Hx Colostomy: No Hx Crohn's Disease: No Hx Diverticulitis: No Hx Gall Bladder Disease: No Hx Gastroesophageal Reflux: Yes Hx Ileostomy: No Hx Liver Failure: No Hx Pancreatitis: No HX Swallowing Problems: No Other/Comment: perforated ulcer X2, had sx twice, rectal bleeding due to perforations - Genitourinary/Gynecological Hx Genitourinary Disorders: No Hx Hematuria: No Hx Incontinence: No Hx Prostate Problems: No Hx Sexually Transmitted Diseases: No Hx Urinary Tract Infection: No - Psychiatric Hx Psychophysiologic Disorder: Yes (ETOH abuse drinks 1/2 to 1 case beer per day ) Hx Anxiety: No Hx Bipolar Disorder: No Hx Depression: No Hx Hallucinations: No Hx Panic Disorder: No Hx Post Traumatic Stress Disorder: No Hx Psychosis: No Hx Schizophrenia: No Hx Sexual Abuse: No Hx Substance Use: No Other/Comment: ETOH, drinks 1 case of beer a day, smokes a cigar 1 every 2 months denies substance use - Surgical History Hx Amputation: No Hx Appendectomy: No Hx Cardiac Catheterization: No Hx Cholecystectomy: No Hx Coronary Stent: No Hx Gastric Bypass Surgery: Yes (around 10 yrs ago used to weigh 360 lbs) Hx Hysterectomy: No Hx Joint Replacement: No Hx Kidney Transplant: No Hx Liver Transplant: No Hx Mastectomy: No Hx Musculoskeletal Surgery: No Hx Open Heart Surgery: Yes (pacemAKER 2014) Hx Orthopedic Surgery: No Hx Splenectomy: No Hx Valve Replacement: No - Anesthesia Hx Anesthesia: Yes Hx Anesthesia Reactions: No Hx Malignant Hyperthermia: No - Suicidal Assessment Feels Threatened In Home Enviroment: No Family/Social History - Physician Review Nursing Documentation Reviewed: Yes Family/Social History: Unknown Family HX Smoking Status: Current Some Days Smoker Hx Alcohol Use: Yes (1-1/2 CASE OF BEER DAILY) Amount per day: 6 Hx Substance Use: No Hx Substance Use Treatment: No Allergies/Home Meds Allergies/Adverse Reactions: Allergies No Known Allergies Allergy (Verified 11/01/16 11:46) Review of Systems - Physician Review All systems were reviewed & negative as marked: Yes - Review of Systems Constitutional: Normal. absent: Fevers Eyes: Normal ENT: Normal Respiratory: Normal. absent: SOB, Cough Cardiovascular: Chest Pain, Palpitations Gastrointestinal: Normal. absent: Abdominal Pain, Diarrhea, Nausea, Vomiting Genitourinary Male: Normal. absent: Dysuria, Frequency, Hematuria, Urinary Output Changes Musculoskeletal: Normal. absent: Back Pain, Neck Pain Skin: Normal. absent: Rash Neurological: Normal. absent: Headache, Dizziness Endocrine: Normal Hemo/Lymphatic: Normal Psychiatric: Normal Physical Exam Vital Signs Reviewed: Yes Vital Signs Temp Pulse Resp BP Pulse Ox 11/03/16 22:05 98.9 F 74 20 103/62 99 Temperature: Afebrile Blood Pressure: Normal Pulse: Regular Respiratory Rate: Normal Appearance: Positive for: Well-Appearing, Non-Toxic, Comfortable Pain Distress: None Mental Status: Positive for: Alert and Oriented X 3 - Systems Exam Head: Present: Atraumatic, Normocephalic Pupils: Present: PERRL Extroacular Muscles: Present: EOMI Conjunctiva: Present: Normal Mouth: Present: Moist Mucous Membranes Neck: Present: Normal Range of Motion Respiratory/Chest: Present: Clear to Auscultation, Good Air Exchange. No: Respiratory Distress, Accessory Muscle Use Cardiovascular: Present: Regular Rate and Rhythm, Normal S1, S2. No: Murmurs Abdomen: Present: Normal Bowel Sounds. No: Tenderness, Distention, Peritoneal Signs Back: Present: Normal Inspection Upper Extremity: Present: Normal Inspection. No: Cyanosis, Edema Lower Extremity: Present: Normal Inspection. No: Edema Neurological: Present: GCS=15, CN II-XII Intact, Speech Normal Skin: Present: Warm, Dry, Normal Color. No: Rashes Psychiatric: Present: Alert, Oriented x 3, Normal Insight, Normal Concentration Medical Decision Making ED Course and Treatment: 11/03/16 22:34 Impression: 51 year old male c/o palpitations and chest pressure tonight. Differential Diagnosis included but are not limited to: atrial fibrillation Plan: -- EKG -- CXR -- Labs, cardiac enzymes -- Reassess and disposition Progress Notes: reviewed EKG, a fib at [address] changes inferolaterally and anteriorly. Unchanged from previous EKG on 11/01/2016. 11/03/16 23:21 Pt refusing bloodwork/further evaluation. States he wants to leave. Pt will sign out AMA. Patient is choosing to leave against medical advice. I have personally explained to the patient that choosing to do so may result in permanent bodily harm or . I have discussed at great length that without further evaluation and monitoring there may be unforeseen circumstances and/or deterioration causing permanent bodily harm or as a result of their choice. The patient is alert, oriented, and shows the mental capacity to make clear decisions regarding the patients health care at this time. The patient continues to wish to leave against medical advice. Patient is aware of the importance of following up as instructed. The patient has been advised that they should return to the ED immediately if they change their mind at any time, or if their condition begins to change or worsen in any way. - RAD Interpretation Radiology Orders: 11/03/16 22:35 CHEST PORTABLE [RAD] Stat - EKG Interpretation Interpreted by ED Physician: Yes Type: 12 lead EKG - Scribe Statement The provider has reviewed the documentation as recorded by the Umer Jensen Provider Scribe Attestation: All medical record entries made by the Tristonibe were at my direction and personally dictated by me. I have reviewed the chart and agree that the record accurately reflects my personal performance of the history, physical exam, medical decision making, and the department course for this patient. I have also personally directed, reviewed, and agree with the discharge instructions and disposition. Disposition/Present on Arrival - Present on Arrival Any Indicators Present on Arrival: No History of DVT/PE: No History of Uncontrolled Diabetes: No Urinary Catheter: No History of Decub. Ulcer: No History Surgical Site Infection Following: None - Disposition Have Diagnosis and Disposition been Completed?: Yes Diagnosis: Chest pain, Atrial fibrillation Disposition: AGAINST MEDICAL ADVICE Disposition Time: 23:24 Condition: STABLE Discharge Instructions (ExitCare): Chest Pain (ED) Forms: [employer] (German)
--- NOTE | 2016-11-04 09:37 | CARD ---
APPROVED REPORT EKG Measurement Heart [id number] <Conclusion> Atrial fibrillation Anterior infarct, age undetermined ST & T wave abnormality, consider inferolateral ischemia or digitalis effect Abnormal ECG
== END 2016-11-03 23:24 | disposition left against medical advice (07) ==
LOC: ED 21:46
DX: R07.9 Chest pain, unspecified (principal); I48.91 Unspecified atrial fibrillation; I48.0 Paroxysmal atrial fibrillation; I10 Essential (primary) hypertension; I42.9 Cardiomyopathy, unspecified

== ENCOUNTER 2016-11-06 10:06 | Observation (INO) | payer MEDICAID ==
[2016-11-06 10:06] VITALS: BMI 33.9
--- NOTE | 2016-11-06 10:29 | ED PDOC ---
Arrival/HPI - General Chief Complaint: Chest Pain Time Seen by Provider: 11/06/16 10:14 Historian: Patient - Critical Care Critical Care Minutes: 30 minutes - History of Present Illness Narrative History of Present Illness (Text): 11/06/16 10:26 A 51 year old male, whose past medical history includes, tachy-viki syndrome s/ p pacemaker placement, paroxysmal atrial fibrillation, cardiomyopathy, hypertension, PUD, alcohol abuse, perforated ulcer/GI bleed, and gastric bypass , presents to the emergency department with a complaint of palpitations since yesterday morning. The patient notes that the palpitations are intermittent. He also states that he was in the emergency department 2 days ago after a mechanical fall where he landed on his left chest and rib cage area. He has pain to this left chest wall. The patient denies headache, shortness of breath, dizziness, cough, fevers, chills, abdominal pain, nausea, vomiting, diarrhea, or any other complaint. Time/Duration: Other (Yesterday morning) Symptom Onset: Sudden Symptom Course: Unchanged Activities at Onset: Rest, Light Context: Home Past Medical History - Provider Review Nursing Documentation Reviewed: Yes - Past History Past History: No Previous (hx of afib, svt) - Infectious Disease Hx of Infectious Diseases: None - Tetanus Immunization Tetanus Immunization: Unknown - Cardiac Hx Cardiac Disorders: Yes Hx Cardiac Arrhythmia: Yes (a fib svt palpitations) Hx Hypertension: Yes Hx Pacemaker: Yes (2014) Hx Peripheral Edema: Yes (ble +1) Other/Comment: born with truncus arteriosus - Pulmonary Hx Respiratory Disorders: No Hx Chronic Obstructive Pulmonary Disease (COPD): No - Neurological Hx Neurological Disorder: No HX Cerebrovascular Accident: No Hx Dizziness: Yes Hx Seizures: (pt denies) - HEENT Hx HEENT Disorder: Yes (eyeglasses) Other/Comment: 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 related noise exposure - Renal Hx Renal Disorder: No Hx Renal Failure: No - Endocrine/Metabolic Hx Endocrine Disorders: No Hx Diabetes Mellitus Type 1: No Hx Diabetes Mellitus Type 2: No Hx Hypothyroidism: No - Hematological/Oncological Hx Blood Disorders: No - Integumentary Hx Dermatological Disorder: No Other/Comment: tatoos, bruise to left abd and rib area, left eye orbit eccymosis fell at home 10/18/16 - Musculoskeletal/Rheumatological Hx Falls: Yes - Gastrointestinal Hx Gastrointestinal Disorders: Yes Hx Gastroesophageal Reflux: Yes Other/Comment: perforated ulcer X2, had sx twice, rectal bleeding due to perforations - Genitourinary/Gynecological Hx Genitourinary Disorders: No - Psychiatric Hx Psychophysiologic Disorder: Yes (ETOH abuse drinks 1/2 to 1 case beer per day ) Hx Substance Use: No - Surgical History Hx Gastric Bypass Surgery: Yes (around 10 yrs ago used to weigh 360 lbs) Hx Open Heart Surgery: Yes (pacemAKER 2014) - Anesthesia Hx Anesthesia: Yes Hx Anesthesia Reactions: No Hx Malignant Hyperthermia: No - Suicidal Assessment Feels Threatened In Home Enviroment: No Family/Social History - Physician Review Nursing Documentation Reviewed: Yes Family/Social History: No Known Family HX Smoking Status: Current Some Days Smoker Hx Alcohol Use: Yes (1-1/2 CASE OF BEER DAILY) Amount per day: 6 Hx Substance Use: No Hx Substance Use Treatment: No Allergies/Home Meds Allergies/Adverse Reactions: Allergies No Known Allergies Allergy (Verified 11/01/16 11:46) Review of Systems - Review of Systems Constitutional: absent: Fevers, Night Sweats Respiratory: absent: SOB, Cough Cardiovascular: Palpitations Gastrointestinal: absent: Abdominal Pain, Diarrhea, Nausea, Vomiting Neurological: absent: Headache, Dizziness Physical Exam Vital Signs Reviewed: Yes Vital Signs Temp Pulse Resp BP BP Pulse Ox 11/06/16 11:53 81 99/55 L 11/06/16 11:37 89 19 91/55 L 99 11/06/16 10:52 95 H 20 109/65 99 11/06/16 10:28 109/56 L 11/06/16 10:07 97.1 F L 130 H 20 94/65 L 99 Temperature: Hypothermic Blood Pressure: Hypotensive Pulse: Tachycardic Respiratory Rate: Normal Appearance: Positive for: Well-Appearing, Non-Toxic, Comfortable Pain Distress: None Mental Status: Positive for: Alert and Oriented X 3 - Systems Exam Head: Present: Atraumatic, Normocephalic, Ecchymosis (left sub periorbital eccymosiss, no tenderness.) Pupils: Present: PERRL Extroacular Muscles: Present: Other (no pain with eye movement movement ) Conjunctiva: Present: Other (no hyphema) Mouth: Present: Moist Mucous Membranes Neck: Present: Normal Range of Motion. No: MIDLINE TENDERNESS Respiratory/Chest: Present: Other (tenderness to the left side of ribs. No step off, no crepitus, no ecchymosis) Cardiovascular: Present: Irregular Rhythm, Tachycardic Abdomen: Present: Other (ecchymosis on the left lower abdomen ). No: Tenderness (No tenderness of abdomen) Back: No: Midline Tenderness Lower Extremity: Present: Edema Neurological: Present: GCS=15, CN II-XII Intact, Speech Normal Skin: Present: Warm, Dry, Normal Color. No: Rashes Psychiatric: Present: Alert, Oriented x 3, Normal Insight, Normal Concentration Medical Decision Making ED Course and Treatment: 11/06/16 10:29 Impression: A 51 year old male with a complaint of 1 day duration intermittent palpitations. Differential Diagnosis included but are not limited to: rapid Atrial fibrillation secondary to alcohol withdrawal vs. dehydration vs. chest pain secondary to cardaic vs. rib fracture vs contusion Plan: -- EKG -- Left Ribs X-Ray -- Chest X-ray -- Labs -- Ativan and IV Fluids -- Reassess and disposition Prior Visits: Notes and results from previous visits were reviewed. Patient was last seen in the emergency department on 11/03/2016 for palpitations. Progress Notes: EKG: Ordered, reviewed, and independently interpreted the EKG. Rate : 142 BPM Rhythm : A-Fib Interpretation : Diffuse t wave inversions Comparison : No changes from EKG from 11/01/16 and 11/03/16. Chest X-Ray Dictator : Aaron Ferguson MD Report Date : 11/06/2016 11:46:44 IMPRESSION: No active disease. 11/06/16 11:59 Labs reviewed. CXR nl with pacemaker. No evidence of rib fx or ptx. Patient refused rib xray stating he already got it. Patient HR improved to 80-90's but his blood pressure is still SBG 90's. Patient feels weak. Currently getting D51/ 2NS at low rate for low glucose. - Lab Interpretations Lab Results: 11/06/16 10:35 11/06/16 10:35 Lab Results 11/06/16 11:02: Alcohol, Quantitative 239 H 11/06/16 10:35: Sodium 135, Potassium 4.5, Chloride 103, Carbon Dioxide 18 L, Anion Gap 19, BUN 6 L, Creatinine 0.6, Est GFR ( Amer) > 60, Est GFR (Non -Af Amer) > 60, Random Glucose 55 L, Calcium 8.4, Magnesium 1.6 L, Total Bilirubin 0.9, AST 94 H, ALT 59 H, Alkaline Phosphatase 115, Lactate Dehydrogenase 435, Total Creatine Kinase < 20 L, Troponin I < 0.01, NT-Pro-B Natriuret Pep 912 H, Total Protein 7.0, Albumin 3.6, Globulin 3.4, Albumin/ Globulin Ratio 1.1 11/06/16 10:35: PT 10.8, INR 1.00, APTT 30.6 11/06/16 10:35: WBC 4.8 D, RBC 3.94, Hgb 12.5 L, Hct 36.4 L, MCV 92.4, MCH 31.7 , MCHC 34.3, RDW 16.1 H, Plt Count 237, MPV 9.0, Gran % 50.1, Lymph % (Auto) 36.4 H, Pine % (Auto) 12.5 H, Eos % (Auto) 0.6 L, Baso % (Auto) 0.4, Gran # 2.41 , Lymph # 1.8, Pine # 0.6, Eos # 0.0, Baso # 0.02 - RAD Interpretation Radiology Orders: 11/06/16 10:31 CHEST TWO VIEWS (PA/LAT) [RAD] Stat - Medication Orders Current Medication Orders: Dextrose/Sodium Chloride (Dextrose 5%/0.45% Ns 1000 Ml) 1,000 mls @ 1,000 mls/ hr IV .Q1H ALLIE Last Admin: 11/06/16 11:06 Dose: 1,000 mls/hr Discontinued Medications Sodium Chloride (Sodium Chloride 0.9%) 1,000 mls @ 999 mls/hr IV .Q1H1M STA Stop: 11/06/16 11:32 Last Admin: 11/06/16 10:35 Dose: 999 mls/hr Lorazepam (Ativan) 2 mg IVP ONCE ONE PRN Reason: Protocol Stop: 11/06/16 10:33 Last Admin: 11/06/16 10:47 Dose: 2 mg - Scribe Statement The provider has reviewed the documentation as recorded by the Umer Ortega Provider Tristonibe Attestation: All medical record entries made by the Scribe were at my direction and personally dictated by me. I have reviewed the chart and agree that the record accurately reflects my personal performance of the history, physical exam, medical decision making, and the department course for this patient. I have also personally directed, reviewed, and agree with the discharge instructions and disposition. Disposition/Present on Arrival - Present on Arrival Any Indicators Present on Arrival: No History of DVT/PE: No History of Uncontrolled Diabetes: No Urinary Catheter: No History of Decub. Ulcer: No History Surgical Site Infection Following: None - Disposition Have Diagnosis and Disposition been Completed?: Yes Diagnosis: Rapid atrial fibrillation, Alcohol dependence, Dehydration Disposition: HOSPITALIZED Disposition Time: 12:04 Patient Plan: Observation Patient Problems: Current Active Problems Problem Status Onset A-fib Acute Chest pain Acute Condition: FAIR Referrals: PCP,NO [Primary Care Provider] - Follow up with primary Forms: CareCARGOBR (Peruvian)
[2016-11-06] MEDS ORDERED: Sodium Chloride 0.9% 1,000 ML IV STA (10:32)
[2016-11-06 10:40] LABS: BASO # 0.02 K/mm3 (0.0-2.0); BASO % 0.4 % (0.0-3.0); EOS % 0.6 % (1.5-5.0); GRAN # 2.41 (1.4-6.5); GRAN % 50.1 % (50.0-68.0); HEMATOCRIT 36.4 % (42.0-52.0); LYMPH # 1.8 (1.2-3.4); LYMPH % 36.4 % (22.0-35.0); MEAN CELL VOLUME 92.4 fl (80.0-105.0); MEAN CORPUSCULAR HEMOGLOBIN 31.7 pg (25.0-35.0); MEAN CORPUSCULAR HGB CONC 34.3 g/dl (31.0-37.0); MONO # 0.6 (0.1-0.6); MONO % 12.5 % (1.0-6.0); RED CELL DISTRIBUTION WIDTH 16.1 % (11.5-14.5); WHITE BLOOD COUNT 4.8 10^3/ul (4.5-11.0)
[2016-11-06 10:50] LABS: PARTIAL THROMBOPLASTIN TIME 30.6 Seconds (23.7-30.8)
[2016-11-06 10:52] LABS: ALB/GLOB RATIO 1.1 (1.1-1.8); ALKALINE PHOSPHATASE 115 U/L (38-133); ALT/SGPT 59 U/L (7-56); AST/SGOT 94 U/L (15-59); BILIRUBIN,TOTAL 0.9 mg/dL (0.2-1.3); BLOOD UREA NITROGEN 6 mg/dL (7-21); CALCIUM 8.4 mg/dL (8.4-10.5); CARBON DIOXIDE 18 mmol/L (21-33); CHLORIDE 103 mmol/L (98-107); GFR AFRICAN-AMERICAN > 60; GLUCOSE,RANDOM 55 mg/dL (70-110); MAGNESIUM 1.6 mg/dL (1.7-2.2); POTASSIUM 4.5 mmol/L (3.6-5.0); SODIUM 135 mmol/L (132-148)
--- NOTE | 2016-11-06 11:03 | CARD ---
APPROVED REPORT EKG Measurement Heart [id number] <Conclusion> Atrial fibrillation with rapid ventricular response ST & T wave abnormality, consider inferior ischemia or digitalis effect ST & T wave abnormality, consider anterolateral ischemia or digitalis effect Abnormal ECG
[2016-11-06] MEDS: Dextrose 5%/0.45% NS 1,000 ML IV SCH ×2 (11:06→12:14)
[2016-11-06 11:10] LABS: TROPONIN I < 0.01 ng/mL
--- NOTE | 2016-11-06 11:48 | RAD ---
HISTORY: palpitations COMPARISON: 11/01/2016 TECHNIQUE: Chest PA and lateral FINDINGS: LUNGS: No active pulmonary disease. PLEURA: No significant pleural effusion identified. No pneumothorax apparent. CARDIOVASCULAR: Normal. OSSEOUS STRUCTURES: No significant abnormalities. VISUALIZED UPPER ABDOMEN: Normal. OTHER FINDINGS: None. IMPRESSION: No active disease.
[2016-11-06] MEDS ORDERED: Magnesium Sulfate 2 GM in Sodium Chloride 0.9% 100 ML IVPB ONE (12:12)
[2016-11-06 12:36] VITALS: O2SAT 98
[2016-11-06] MEDS ORDERED: Folic Acid 1 MG, Thiamine 100 MG, Multivitamin (MVI) 10 ML in Dextrose 5% In Water 1,00... IV SCH (13:30)
--- NOTE | 2016-11-06 13:41 | CP.PCM.HP ---
<MAYLIN TATE - Last Filed: 11/06/16 13:32> History of Present Illness - History of Present Illness History of Present Illness: CC: Palpitations HPI: 51 yo M with PMHx of paroxysmal AFib, Tachy-Francis syndrome s/p pacer, HTN, cardiomyopathy, Alcohol abuse, and PUD presents with palpations for the past day. Pt states that he was at home this morning when he began to feel palpations and called EMS because he felt like "he wasn't going to make it". Pt admits to drinking beer this morning. Pt states that he drinks 1 case of beer a day. Pt states that he has been advised to cease alcohol use and follow up with rehab, but has failed to do so. Pt also fell within the past week, pt was seen at [facility] [place] during that time. Pt still c/o of left chest wall pain, left flank pain, and left periorbital pain sustained from that fall. Pt denies any new CP, SOB, n /v/d, fevers, chills, abdominal pain, constipation, ESTEBAN, dizziness, dysuria, or polyuria. In the ED, pt was found to be a-fib with RVR with HR of 143, however HR returned to normal limits without pharmaceutical intervention. PMH: paroxysmal AFib, Tachy-Francis syndrome s/p pacer, HTN, cardiomyopathy, Alcohol abuse, and PUD PSH: Gastric bypass with multiple complications afterwards; peptic ulcer repair Family Hx: Father-Liver Cancer; Emym[place]-Hyw-Qnundasaiqro Social Hx: Denies chronic tobacco use and any illicit drug use; chronic alcohol abuse-drinks at least one 24-pack of Coors Lite per day All: NKDA Home Meds: Metoprolol PMD: Dr. Arellano Present on Admission - Present on Admission Any Indicators Present on Admission: No Review of Systems - Review of Systems All systems: reviewed and no additional remarkable complaints except (12 point ROS negative other than what is stated in HPI) Past Patient History - Infectious Disease Hx of Infectious Diseases: None - Tetanus Immunizations Tetanus Immunization: Unknown - Past Medical History & Family History Past Medical History?: Yes - Past Social History Smoking Status: Current Some Days Smoker - CARDIAC Hx Cardiac Disorders: Yes Hx Cardia Arrhythmia: Yes (a fib svt palpitations) Hx Hypertension: Yes Hx Pacemaker: Yes (2014) Hx Peripheral Edema: Yes (ble +1) Other/Comment: born with truncus arteriosus - PULMONARY Hx Respiratory Disorders: No Hx Chronic Obstructive Pulmonary Disease (COPD): No - NEUROLOGICAL Hx Neurological Disorder: No HX Cerebrovascular Accident: No Hx Dizziness: Yes Hx Seizures: (pt denies) - HEENT Hx HEENT Problems: Yes (eyeglasses) Other/Comment: 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 related noise exposure - RENAL Hx Chronic Kidney Disease: No Hx Renal Failure: No - ENDOCRINE/METABOLIC Hx Endocrine Disorders: No Hx Diabetes Mellitus Type 1: No Hx Diabetes Mellitus Type 2: No Hx Hypothyroidism: No - HEMATOLOGICAL/ONCOLOGICAL Hx Blood Disorders: No - INTEGUMENTARY Hx Dermatological Problems: No Other/Comment: tatoos, bruise to left abd and rib area, left eye orbit eccymosis fell at home 10/18/16 - MUSCULOSKELETAL/RHEUMATOLOGICAL Hx Falls: Yes - GASTROINTESTINAL Hx Gastrointestinal Disorders: Yes Hx Gastroesophageal Reflux: Yes Other/Comment: perforated ulcer X2, had sx twice, rectal bleeding due to perforations - GENITOURINARY/GYNECOLOGICAL Hx Genitourinary Disorders: No - PSYCHIATRIC Hx Psychophysiologic Disorder: Yes (ETOH abuse drinks 1/2 to 1 case beer per day ) Hx Substance Use: No - SURGICAL HISTORY Hx Gastric Bypass Surgery: Yes (around 10 yrs ago used to weigh 360 lbs) Hx Open Heart Surgery: Yes (pacemAKER 2014) - ANESTHESIA Hx Anesthesia: Yes Hx Anesthesia Reactions: No Hx Malignant Hyperthermia: No Meds Allergies/Adverse Reactions: Allergies Allergy/AdvReac Type Severity Reaction Status Date / Time No Known Allergies Allergy Verified 11/01/16 11:46 Physical Exam - Constitutional Appears: No Acute Distress - Head Exam Head Exam: ATRAUMATIC, NORMOCEPHALIC - Eye Exam Eye Exam: EOMI, PERRL Additional comments: left inferior orbital bruising - ENT Exam ENT Exam: Mucous Membranes Moist - Neck Exam Neck exam: Positive for: Full Rom. Negative for: Lymphadenopathy, Tenderness, Thyromegaly - Respiratory Exam Respiratory Exam: Clear to Auscultation Bilateral. absent: Rales, Rhonchi, Wheezes - Cardiovascular Exam Cardiovascular Exam: Irregular Rhythm, +S1, +S2. absent: Diastolic murmur, Gallop, Rubs, Systolic Murmur - GI/Abdominal Exam GI & Abdominal Exam: Soft, Tenderness (left chest wall, rib, flank tenderness). absent: Distended, Firm, Guarding, Rebound - Extremities Exam Extremities exam: Positive for: normal inspection - Back Exam Back exam: NORMAL INSPECTION - Neurological Exam Neurological exam: Alert, CN II-XII Intact, Oriented x3 - Psychiatric Exam Psychiatric exam: Normal Affect, Normal Mood - Skin Skin Exam: Dry, Intact (left flank and left periorbital ecchymoses), Normal Color, Warm Results - Vital Signs Recent Vital Signs: Last Vital Signs Temp 97.1 F L 11/06/16 10:07 Pulse 81 11/06/16 12:35 Resp 18 11/06/16 12:35 BP 112/75 11/06/16 12:35 Pulse Ox 98 11/06/16 12:35 - Labs Result Diagrams: 11/06/16 10:35 11/06/16 10:35 Assessment & Plan - Assessment and Plan (Free Text) Assessment: 51 yo M with PMHx of paroxysmal AFib, Tachy-Francis syndrome s/p pacer, HTN, cardiomyopathy, Alcohol abuse, and PUD admitted for evaluation and treatment for atrial fibrillation with RVR, alcohol abuse, and possible withdrawal. Plan: 1. Atrial fibrillation - Cardio consulted - EKG showed a-fib with rvr, HR 143 on admission - Continued home metoprolol 50 mg PO BID - Monitor on telemetry - Troponin x1 negative, will trend 2. Alcohol Abuse/Withdrawal - Librium 25 mg PO Q8H damir - Ativan 2 mg IVP Q3H prn - CIWA protocol with neuro checks - EtOH level 239 - Liver enzymes mildly elevated - Banana bag with D5W due to hypoglycemia - Fall risk precautions - Seizure precautions - Counseled on risks of alcohol use and advised cessation 3. Hypomagnesmia - Mg 1.6 - Mg sulf 2gm IVPB - Monitor, replete as needed 4. H/o HTN, cardiomyopathy - HHD, 2 g Na - BNP 912 - Cont home meds GI/DVT PPx - Protonix - SCDs Pt seen and discussed in detail with Dr. Garcia. <Shania Garcia - Last Filed: 11/06/16 15:11> Results - Vital Signs Recent Vital Signs: Last Vital Signs Temp 98.6 F 11/06/16 14:12 Pulse 79 11/06/16 14:12 Resp 20 11/06/16 14:12 BP 104/64 11/06/16 14:12 Pulse Ox 98 11/06/16 13:21 - Labs Result Diagrams: 11/06/16 10:35 11/06/16 10:35 Attending/Attestation - Attestation I have personally seen and examined this patient.: Yes I have fully participated in the care of the patient.: Yes I have reviewed all pertinent clinical information: Yes Notes (Text): 11/06/16 15:06 51 year old male with past medical history of paroxysmal afib, tachy-francis syndrome s/p pacemaker, cardiomyopathy and chronic ETOH abuse presents with complaint of chest pain and palpitations. In ER he was found to have Afib with RVR which improved with cardizem and elevated alcohol level of 239. Will admit to telemetry unit. Serial cardiac enzymes are ordered to rule out ACS. Cardiology evaluation is requested. He is on lopressor. He is not on anticoagulation due to noncompliance, chronic etoh abuse, and frequent falls. Will start librium and ativan prn for withdrawal symptoms. Continue with banana bag. He was counselled on alcohol abstinence on multiple occasions. Unfortunately he fails to comply. This is in fact his fourth admission this month for similar complaints. Will replete and repeat lytes. Shania Garcia MD Hospitalist.
[2016-11-06 13:49] VITALS: RESP 20
[2016-11-06] MEDS ORDERED: Digoxin 500 mcg/2ml (0.5 mg/2ml) Inj IVP ONE ×2 (15:45→19:00)
[2016-11-06 17:10] VITALS: BP 116/87; TEMP 98.7
[2016-11-06 18:09] VITALS: PULSE 70
[2016-11-06 19:27] LABS: TROPONIN I < 0.01 ng/mL
--- NOTE | 2016-11-06 20:55 | CP.PCM.DIS ---
Provider - Provider Date of Admission: 11/06/16 13:26 Attending physician: Sincere Pacheco MD Primary care physician: NO PRIMARY CARE PROVIDER Time Spent in preparation of Discharge (in minutes): 35 Hospital Course - Lab Results Lab Results: Most Recent Lab Values WBC 4.8 10^3/ul (4.5-11.0) D 11/06/16 10:35 RBC 3.94 10^6/uL (3.5-6.1) 11/06/16 10:35 Hgb 12.5 g/dL (14.0-18.0) L 11/06/16 10:35 Hct 36.4 % (42.0-52.0) L 11/06/16 10:35 MCV 92.4 fl (80.0-105.0) 11/06/16 10:35 MCH 31.7 pg (25.0-35.0) 11/06/16 10:35 MCHC 34.3 g/dl (31.0-37.0) 11/06/16 10:35 RDW 16.1 % (11.5-14.5) H 11/06/16 10:35 Plt Count 237 10^3/uL (120.0-450.0) 11/06/16 10:35 MPV 9.0 fl (7.0-11.0) 11/06/16 10:35 Gran % 50.1 % (50.0-68.0) 11/06/16 10:35 Lymph % (Auto) 36.4 % (22.0-35.0) H 11/06/16 10:35 Hubbard % (Auto) 12.5 % (1.0-6.0) H 11/06/16 10:35 Eos % (Auto) 0.6 % (1.5-5.0) L 11/06/16 10:35 Baso % (Auto) 0.4 % (0.0-3.0) 11/06/16 10:35 Gran # 2.41 (1.4-6.5) 11/06/16 10:35 Lymph # 1.8 (1.2-3.4) 11/06/16 10:35 Hubbard # 0.6 (0.1-0.6) 11/06/16 10:35 Eos # 0.0 (0.0-0.7) 11/06/16 10:35 Baso # 0.02 K/mm3 (0.0-2.0) 11/06/16 10:35 PT 10.8 Seconds (9.9-11.8) 11/06/16 10:35 INR 1.00 (0.93-1.08) 11/06/16 10:35 APTT 30.6 Seconds (23.7-30.8) 11/06/16 10:35 Sodium 135 mmol/L (132-148) 11/06/16 10:35 Potassium 4.5 mmol/L (3.6-5.0) 11/06/16 10:35 Chloride 103 mmol/L (98-107) 11/06/16 10:35 Carbon Dioxide 18 mmol/L (21-33) L 11/06/16 10:35 Anion Gap 19 (10-20) 11/06/16 10:35 BUN 6 mg/dL (7-21) L 11/06/16 10:35 Creatinine 0.6 mg/dL (0.5-1.4) 11/06/16 10:35 Est GFR ( Amer) > 60 11/06/16 10:35 Est GFR (Non-Af Amer) > 60 11/06/16 10:35 Random Glucose 55 mg/dL (70-110) L 11/06/16 10:35 Calcium 8.4 mg/dL (8.4-10.5) 11/06/16 10:35 Magnesium 1.6 mg/dL (1.7-2.2) L 11/06/16 10:35 Total Bilirubin 0.9 mg/dL (0.2-1.3) 11/06/16 10:35 AST 94 U/L (15-59) H 11/06/16 10:35 ALT 59 U/L (7-56) H 11/06/16 10:35 Alkaline Phosphatase 115 U/L (38-133) 11/06/16 10:35 Lactate Dehydrogenase 399 U/L (333-699) 11/06/16 18:35 Total Creatine Kinase < 20 U/L (35-230) L 11/06/16 18:35 Troponin I < 0.01 ng/mL 11/06/16 18:35 NT-Pro-B Natriuret Pep 912 pg/mL (0-450) H 11/06/16 10:35 Total Protein 7.0 g/dL (5.8-8.3) 11/06/16 10:35 Albumin 3.6 g/dL (3.0-4.8) 11/06/16 10:35 Globulin 3.4 gm/dL 11/06/16 10:35 Albumin/Globulin Ratio 1.1 (1.1-1.8) 11/06/16 10:35 Alcohol, Quantitative 239 mg/dL (0-10) H 11/06/16 11:02 - Hospital Course Hospital Course: 51 year old male with past medical history of paroxysmal afib, tachy-viki syndrome s/p pacemaker, cardiomyopathy and chronic ETOH abuse presents with complaint of chest pain and palpitations. In ER he was found to have Afib with RVR which improved with cardizem and elevated alcohol level of 239. Admitted to telemetry unit. Serial cardiac enzymes were ordered to rule out ACS. Cardiology consult was ordered. Patient was not given anticoagulation due to noncompliance, chronic etoh abuse, and frequent falls. He was started on librium and ativan prn for withdrawal symptoms. A banana bag was given. The patient was counselled on alcohol abstinence. The patient decided to leave against medical advice 11/06/2016 evening. He was counseled on alcohol cessation and he was understandable and agreeable. He was instructed to follow up with his primary medical doctor as well as return to the hospital if his symptoms returned or worsened. - Date & Time of H&P Date of H&P: 11/06/16 Time of H&P: 13:32 Discharge Exam - Head Exam Head Exam: ATRAUMATIC, NORMOCEPHALIC Additional comments: periorbital bruising present - Eye Exam Eye Exam: EOMI, PERRL - Respiratory Exam Respiratory Exam: Clear to PA & Lateral, NORMAL BREATHING PATTERN - Cardiovascular Exam Cardiovascular Exam: REGULAR RHYTHM, +S1, +S2 - GI/Abdominal Exam GI & Abdominal Exam: Normal Bowel Sounds, Soft - Neurological Exam Neurological exam: Alert, CN II-XII Intact, Normal Gait, Oriented x3, Reflexes Normal - Psychiatric Exam Psychiatric exam: Normal Affect, Normal Mood - Skin Skin Exam: Dry, Intact, Normal Color, Warm Discharge Plan - Follow Up Plan Condition: FAIR Disposition: AGAINST MEDICAL ADVICE Additional Instructions: 1. Please follow up with your primary care doctor 2. Cessation of alcohol is strongly advised. 3. Please take medications as prescribed to you. 4. Please seek counseling for alcohol abuse. 5. Please return to the hospital if your symptoms return or worsen. 6. Continue with heart healthy diet. Referrals: PCP,NO [Primary Care Provider] -
--- NOTE | 2016-11-07 08:51 | CON ---
DATE: 11/06/2016 REASON FOR CONSULTATION: Followup AFib with rapid ventricular rate, alcoholic intoxication. BRIEF CLINICAL HISTORY: This is a 51-year-old male with past medical history significant for paroxysmal atrial fibrillation; tachy-viki syndrome; sick sinus syndrome, status post AICD; alcohol-related cardiomyopathy; multiple admissions for alcoholic intoxication. He was drinking alcohol and came in with alcoholic intoxication, blood alcohol level at 239. Foul smell from the alcohol coming and fell down, bruise in the eyes, and AFib with rapid ventricular rate. Denies any chest pain, denies any shortness of breath or any palpitation. PAST MEDICAL HISTORY: Significant for paroxysmal atrial fibrillation; tachy-viki syndrome; sick sinus syndrome, status post permanent pacemaker; cardiomyopathy; alcohol abuse; and peptic ulcer disease. CURRENT MEDICATIONS: The patient is supposed to take digoxin, Colace, Feosol, folic acid, levothyroxine, Zestril, metoprolol, multivitamin, not on anticoagulation because very noncompliant. FAMILY HISTORY: Significant for coronary artery disease, status post father from [place]. PAST SURGICAL HISTORY: Significant for gastric bypass, multiple complications, history of peptic ulcer disease, and history of permanent pacemaker. PREVIOUS CARDIAC WORKUP: As follows: The patient had an echocardiography 05/2015, that showed ejection fraction 30% to 35%, 4 chamber dilatation, [id number] mitral regurgitation, [id number] tricuspid regurgitation. RV systolic pressure 56, moderately dilated RV, systolic function of RV moderately reduced. No history of LV or RV thrombus noted, status post permanent pacemaker, VVI single chamber 04/20/2015, [employer] because of sick sinus syndrome, tachy-viki syndrome, history of cardiac catheterization was done and was found to be normal, history of alcohol abuse, and history of tobacco abuse. Repeat echo dated 06/16/2015, as mentioned 4 chamber dilatation, moderate to severe mitral regurgitation, tricuspid regurgitation, systolic pressure 55. SOCIAL HISTORY: Active tobacco abuse, active alcohol abuse. Multiple admissions for alcoholic intoxication. REVIEW OF SYSTEMS: As per HPI. PHYSICAL EXAMINATION VITAL SIGNS: Temperature afebrile, heart rate admitting 120 and now is 75, and blood pressure 104/64. HEENT: PERRLA. Intact. NECK: Supple. No carotid bruits or thyromegaly. CHEST: Clear to auscultation. HEART: S1 and S2 regular. ABDOMEN: Soft. EXTREMITIES: Clubbing and cyanosis negative. LABORATORY DATA: Blood workup as follows: WBC 4.8, hemoglobin 12.1, hematocrit 36.4, and platelet count 237. Chemistries show sodium 135, potassium 4.5, chloride 103, carbon dioxide 18, anion gap of 6, BUN 19, creatinine 0.6. Troponin 0.01, negative. EKG showed AFib, heart rate of 142. Now, telemetry shows heart rate of 100. Blood alcohol level 239. ASSESSMENT: Acute alcoholic intoxication, atrial fibrillation with rapid ventricular rate, sick sinus syndrome, cardiomyopathy, 4 chamber dilatation, decreased left ventricular function, ejection fraction decreased, status post permanent pacemaker, alcohol abuse, and tobacco abuse. RECOMMENDATIONS: Continue IV fluid, multivitamins until the patient gets sober. We will start beta mariusz, digoxin to slow the heart rate, two dose of digoxin; one now and one continue. Protocol for alcoholic intoxication. We will follow with you. Repeat lipid profile, TSH and hemoglobin A1c in the morning with magnesium level. Thank you Dr. Pacheco for providing me the opportunity in taking care of the patient. Tere Albrecht MD
== END 2016-11-06 21:58 | disposition left against medical advice (07) ==
LOC: ED 10:06 → ERH 11:58 → 2RNO 13:16 → OBSVTOIN 13:26 → INTOOBSV 13:26
PROVIDERS: ADMIT Hospitalist; ATTEND Hospitalist
DX: F10.229 Alcohol dependence with intoxication, unspecified (principal); Y90.7 Blood alcohol level of 200-239 mg/100 ml; I48.0 Paroxysmal atrial fibrillation; I42.9 Cardiomyopathy, unspecified; I10 Essential (primary) hypertension; R29.6 Repeated falls; Z95.0 Presence of cardiac pacemaker; Z91.19 Patient's noncompliance with other medical treatment and regimen; Z87.11 Personal history of peptic ulcer disease; Z98.84 Bariatric surgery status; Z95.810 Presence of automatic (implantable) cardiac defibrillator; I08.1 Rheumatic disorders of both mitral and tricuspid valves; I25.10 Atherosclerotic heart disease of native coronary artery without angina pectoris; H83.3X1 Noise effects on right inner ear; K21.9 Gastro-esophageal reflux disease without esophagitis; Z87.19 Personal history of other diseases of the digestive system; F17.200 Nicotine dependence, unspecified, uncomplicated; Q20.0 Common arterial trunk; S30.1XXA Contusion of abdominal wall, initial encounter; S20.20XA Contusion of thorax, unspecified, initial encounter; S00.12XA Contusion of left eyelid and periocular area, initial encounter; W19.XXXA Unspecified fall, initial encounter; Y92.009 Unspecified place in unspecified non-institutional (private) residence as the place of occurrence of the external cause; Z80.0 Family history of malignant neoplasm of digestive organs; Z82.49 Family history of ischemic heart disease and other diseases of the circulatory system; I49.5 Sick sinus syndrome; F10.239 Alcohol dependence with withdrawal, unspecified; E83.42 Hypomagnesemia
CPT/HCPCS: 71020; 80053; 80320; 82550; 83615; 83735; 83880; 84484; 85025; 85610; 85730; 93005; 96361; 96374; 96375; 99285; G0378; J1160; J2060; J3411; J3475; J7040; J7042; J7070

== ENCOUNTER 2016-11-23 21:29 | Inpatient (IN) | payer MEDICAID ==
[2016-11-23 21:29] VITALS: BMI 33.9
--- NOTE | 2016-11-23 21:43 | ED PDOC ---
Arrival/HPI - General Chief Complaint: Palpitations Time Seen by Provider: 11/23/16 21:30 Historian: Patient - History of Present Illness Narrative History of Present Illness (Text): 11/23/16 21:43 Elvis Ybarra is a 51 year old male, whose past medical history includes tachy -viki syndrome s/p pacemaker placement, paroxysmmal atrial fibrillation, cardiomyopathy, hypertension, PUD, alcohol abuse, perforated ulcer/GI bleed, and gastric bypass, who presents to the ED complaining of palpitations today. Patient reports associated vague mid-sternal chest pressure. Patient reports symptoms feel similar to previous episodes of atrial fibrillation. Patient notes he has been non-compliant with his Metoprolol and admits to drinking alcohol today. Patient denies any fever, chills, shortness of breath, nausea, vomiting, diarrhea, urinary symptoms, back pain, neck pain, headache, dizziness , or any other complaints. Time/Duration: Other (today) Symptom Onset: Gradual Symptom Course: Unchanged Activities at Onset: Light Context: Home Past Medical History - Provider Review Nursing Documentation Reviewed: Yes - Past History Past History: No Previous (hx of afib, svt) - Infectious Disease Hx of Infectious Diseases: None - Tetanus Immunization Tetanus Immunization: Unknown - Cardiac Hx Cardiac Disorders: Yes Hx Cardiac Arrhythmia: Yes (a fib svt palpitations) Hx Hypertension: Yes Hx Pacemaker: Yes (2014) Hx Peripheral Edema: Yes (ble +1) Other/Comment: born with truncus arteriosus - Pulmonary Hx Respiratory Disorders: No Hx Chronic Obstructive Pulmonary Disease (COPD): No - Neurological Hx Neurological Disorder: No HX Cerebrovascular Accident: No Hx Dizziness: Yes Hx Seizures: (pt denies) - HEENT Hx HEENT Disorder: Yes (eyeglasses) Other/Comment: 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 related noise exposure - Renal Hx Renal Disorder: No Hx Renal Failure: No - Endocrine/Metabolic Hx Endocrine Disorders: No Hx Diabetes Mellitus Type 1: No Hx Diabetes Mellitus Type 2: No Hx Hypothyroidism: No - Hematological/Oncological Hx Blood Disorders: No - Integumentary Hx Dermatological Disorder: No Other/Comment: tatoos, bruise to left abd and rib area, left eye orbit eccymosis fell at home 10/18/16 - Musculoskeletal/Rheumatological Hx Falls: Yes - Gastrointestinal Hx Gastrointestinal Disorders: Yes Hx Gastroesophageal Reflux: Yes Other/Comment: perforated ulcer X2, had sx twice, rectal bleeding due to perforations - Genitourinary/Gynecological Hx Genitourinary Disorders: No - Psychiatric Hx Psychophysiologic Disorder: Yes (ETOH abuse drinks 1/2 to 1 case beer per day ) Hx Substance Use: No - Surgical History Hx Gastric Bypass Surgery: Yes (around 10 yrs ago used to weigh 360 lbs) Hx Open Heart Surgery: Yes (pacemAKER 2014) - Anesthesia Hx Anesthesia: Yes Hx Anesthesia Reactions: No Hx Malignant Hyperthermia: No - Suicidal Assessment Feels Threatened In Home Enviroment: No Family/Social History - Physician Review Nursing Documentation Reviewed: Yes Family/Social History: Unknown Family HX Smoking Status: Former Smoker Hx Alcohol Use: Yes Amount per day: 6 Hx Substance Use: No Hx Substance Use Treatment: No Allergies/Home Meds Allergies/Adverse Reactions: Allergies No Known Allergies Allergy (Verified 11/01/16 11:46) Review of Systems - Physician Review All systems were reviewed & negative as marked: Yes - Review of Systems Constitutional: Normal. absent: Fevers Eyes: Normal ENT: Normal Respiratory: Normal. absent: SOB, Cough Cardiovascular: Chest Pain, Palpitations Gastrointestinal: Normal. absent: Abdominal Pain, Diarrhea, Nausea, Vomiting Genitourinary Male: Normal. absent: Dysuria, Frequency, Hematuria, Urinary Output Changes Musculoskeletal: Normal. absent: Back Pain, Neck Pain Skin: Normal. absent: Rash Neurological: Normal. absent: Headache, Dizziness Endocrine: Normal Hemo/Lymphatic: Normal Psychiatric: Normal Physical Exam Vital Signs Reviewed: Yes Vital Signs Temp Pulse Pulse Resp BP Pulse Ox 11/23/16 23:20 102 H 20 105/64 96 11/23/16 22:10 170 H 11/23/16 22:03 170 H 112/82 11/23/16 21:58 179 H 112/82 11/23/16 21:46 97.8 F 11/23/16 21:40 170 H 20 112/82 97 Temperature: Afebrile Blood Pressure: Normal Pulse: Tachycardic Respiratory Rate: Normal Appearance: Positive for: Well-Appearing, Non-Toxic, Comfortable Pain Distress: None Mental Status: Positive for: Alert and Oriented X 3 - Systems Exam Head: Present: Atraumatic, Normocephalic Pupils: Present: PERRL Extroacular Muscles: Present: EOMI Conjunctiva: Present: Normal Mouth: Present: Moist Mucous Membranes Neck: Present: Normal Range of Motion Respiratory/Chest: Present: Clear to Auscultation, Good Air Exchange. No: Respiratory Distress, Accessory Muscle Use Cardiovascular: Present: Normal S1, S2, Irregular Rhythm (Irregular, regular), Tachycardic. No: Murmurs Abdomen: Present: Normal Bowel Sounds. No: Tenderness, Distention, Peritoneal Signs Upper Extremity: Present: Normal Inspection. No: Cyanosis, Edema Lower Extremity: Present: Normal Inspection. No: Edema Neurological: Present: GCS=15, CN II-XII Intact, Speech Normal Skin: Present: Warm, Dry, Normal Color. No: Rashes Psychiatric: Present: Alert, Oriented x 3, Normal Insight, Normal Concentration Medical Decision Making ED Course and Treatment: 11/23/16 21:43 Impression: 51 year old male c/o palpitations and chest pressure today. Differential Diagnosis included but are not limited to: atrial fibrillation Plan: -- EKG -- CXR -- Labs, cardiac enzymes, BNP, alcohol level -- Cardizem -- Reassess and disposition Prior Visits: Notes and results from previous visits were reviewed. On 11/06/2016, pt was seen in the ED for palpitations and chest pain. Pt was admitted for further evaluations. Progress Notes: Reviewed EKG, a fib at [address] bpm[address] Non-specific ST/T wave changes. 11/23/16 22:04 Reviewed radiology, CXR shows cardiomegaly. 11/23/16 23:14 Case discussed with medical diagnostic radiographer marketing communications associate, who is aware and agrees with plan. Case discussed with Dr. Nerissa Pacheco, who is aware and agrees with plan. Accepts pt in to hospitalist service. Pt will go to Telemetry observation for rapid atrial fibrillation and chest pain. Discussed results and hospital observation plan with pt, who is aware and verbalizes understanding. - Lab Interpretations Lab Results: 11/23/16 22:00 11/23/16 22:00 Lab Results 11/23/16 22:00: Alcohol, Quantitative 344 H* 11/23/16 22:00: WBC 3.2 L D, RBC 4.24, Hgb 14.1, Hct 39.2 L, MCV 92.5, MCH 33.3 , MCHC 36.0, RDW 14.6 H, Plt Count 112 L, MPV 9.5 11/23/16 22:00: Sodium 135, Potassium 3.7, Chloride 99, Carbon Dioxide 19 L, Anion Gap 21 H, BUN 2 L, Creatinine 0.6, Est GFR ( Amer) > 60, Est GFR ( Non-Af Amer) > 60, Random Glucose 119 H, Calcium 8.8, Total Bilirubin 1.1, AST 142 H, ALT 56, Alkaline Phosphatase 171 H, Lactate Dehydrogenase 454, Total Creatine Kinase 32 L, Troponin I < 0.01, NT-Pro-B Natriuret Pep 1390 H, Total Protein 7.9, Albumin 4.1, Globulin 3.8, Albumin/Globulin Ratio 1.1 11/23/16 22:00: PT 10.7, INR 0.99, APTT 32.5 H I have reviewed the lab results: Yes - RAD Interpretation Radiology Orders: 11/23/16 21:37 CHEST PORTABLE [RAD] Stat Buggy Driver: ED Physician - EKG Interpretation Interpreted by ED Physician: Yes Type: 12 lead EKG - Medication Orders Current Medication Orders: diltiaZEM IVPB 100mg in NS (Cardizem 100mg In Ns) 100 mls @ 5 mls/hr IV .Q20H PRN; Protocol; 5 MG/HR PRN Reason: TITRATE PER MD ORDER Last Admin: 11/23/16 22:03 Dose: 5 mls/hr Discontinued Medications Diltiazem HCl (Cardizem) 20 mg IVP ONCE ONE Stop: 11/23/16 21:39 Last Admin: 11/23/16 21:58 Dose: 20 mg - Tristonibe Statement The provider has reviewed the documentation as recorded by the Umer Jensen All medical record entries made by the Umer were at my direction and personally dictated by me. I have reviewed the chart and agree that the record accurately reflects my personal performance of the history, physical exam, medical decision making, and the department course for this patient. I have also personally directed, reviewed, and agree with the discharge instructions and disposition. Disposition/Present on Arrival - Present on Arrival Any Indicators Present on Arrival: No History of DVT/PE: No History of Uncontrolled Diabetes: No Urinary Catheter: No History of Decub. Ulcer: No History Surgical Site Infection Following: None - Disposition Have Diagnosis and Disposition been Completed?: Yes Diagnosis: Alcohol abuse, Rapid atrial fibrillation Disposition: HOSPITALIZED Disposition Time: 23:20 Patient Plan: Observation Patient Problems: Current Active Problems Problem Status Onset Rapid atrial fibrillation Acute Alcohol abuse Chronic Condition: STABLE
[2016-11-23] MEDS: diltiaZEM IVPB 100mg in NS 100 ML IV PRN (22:03)
[2016-11-23 22:17] LABS: HEMATOCRIT 39.2 % (42.0-52.0); MEAN CELL VOLUME 92.5 fl (80.0-105.0); MEAN CORPUSCULAR HEMOGLOBIN 33.3 pg (25.0-35.0); MEAN PLATELET VOLUME 9.5 fl (7.0-11.0); RED CELL DISTRIBUTION WIDTH 14.6 % (11.5-14.5); WHITE BLOOD COUNT 3.2 10^3/ul (4.5-11.0)
[2016-11-23 22:27] LABS: ALB/GLOB RATIO 1.1 (1.1-1.8); ALKALINE PHOSPHATASE 171 U/L (38-126); ALT/SGPT 56 U/L (7-56); AST/SGOT 142 U/L (17-59); BILIRUBIN,TOTAL 1.1 mg/dL (0.2-1.3); BLOOD UREA NITROGEN 2 mg/dL (7-21); CALCIUM 8.8 mg/dL (8.4-10.5); CARBON DIOXIDE 19 mmol/L (21-33); CHLORIDE 99 mmol/L (98-107); GFR AFRICAN-AMERICAN > 60; GLUCOSE,RANDOM 119 mg/dL (70-110); POTASSIUM 3.7 mmol/L (3.6-5.0); SODIUM 135 mmol/L (132-148); TOTAL PROTEIN 7.9 g/dL (5.8-8.3)
[2016-11-23 22:29] LABS: INR 0.99 (0.93-1.08); PARTIAL THROMBOPLASTIN TIME 32.5 Seconds (23.7-30.8)
[2016-11-23 22:39] LABS: TROPONIN I < 0.01 ng/mL
--- NOTE | 2016-11-23 23:38 | CP.PCM.HP ---
<VANESSA RANGEL - Last Filed: 11/24/16 01:16> History of Present Illness - History of Present Illness History of Present Illness: Vanessa Rangel, PGY1, H&P for Dr. Pacheco: CC: palpitations HPI: 51M with PMH of paroxysmal AFib (no AC), Tachy-Francis syndrome s/p pacemaker , HTN, cardiomyopathy, Alcohol abuse, and PUD presents with palpations x few hours BACK TACKER. It started while pt was watching TV, he felt palpitations, with vague midsternal chest pressure, denies sob, diaphoresis, abdominal pain, n/v. He also denies insomnia, excessive caffeine intake, h/a, f/c, cough, constipation, diarrhea, exertion, urinary symptoms, leg swelling. Pt denies using any vagal maneuvers. Pt has had similar symptoms before, for afib. Pt does state that he drank 1/2 case of beer tonight, about 4 hrs BACK TACKER to ED. He usually drinks 1/2-1 case beer/day. In Ed, pt afebrile, found to be in HR 168, afib with RVR, elevated AST 142, ALP 171, BNP 1390, trop negx1, ETOH 344. Received Cardizem 20 mg IVx1, and then started on Cardizem drip at 5 mg/hr. Currently, pt sleepy, HR 120's, afib, BP 105/64, denies palpitations, states that he is noncompliant with home metoprolol bc he ran out. Pt not on anticoagulation for afib due to frequent falls, noncompliance. Prev Hosp: Multiple visits to [facility] [place] for afib with RVR, Chest pain; last visit 2016 for afib with RVR, signed out AMA. PMH: paroxysmal AFib, Tachy-Francis syndrome s/p pacemaker ([address] Albrecht - f/u with him 10 months ago), HTN, cardiomyopathy (EF 31%), chronic alcoholism, and PUD PSH: Gastric bypass with multiple complications afterwards; peptic ulcer repair Family Hx: Father-Liver Cancer; [id number] Social Hx: Denies chronic tobacco use and any illicit drug use; chronic alcohol abuse-drinks at least one 24-pack of Coors Lite per day since his 20's. All: NKDA Home Meds: Metoprolol 50mg PO bid (non compliant, last took it a month ago?) PMD: Dr. Arellano - has not seen him over many months Present on Admission - Present on Admission Any Indicators Present on Admission: No History of DVT/PE: No History of Uncontrolled Diabetes: No Urinary Catheter: No Decubitus Ulcer Present: No History Surgical Site Infection Following: None Review of Systems - Review of Systems All systems: reviewed and no additional remarkable complaints except Review of Systems: as per hpi Past Patient History - Infectious Disease Hx of Infectious Diseases: None - Tetanus Immunizations Tetanus Immunization: Unknown - Past Medical History & Family History Past Medical History?: Yes - Past Social History Smoking Status: Former Smoker - CARDIAC Hx Cardiac Disorders: Yes Hx Cardia Arrhythmia: Yes (a fib svt palpitations) Hx Hypertension: Yes Hx Pacemaker: Yes (2014) Hx Peripheral Edema: Yes (ble +1) Other/Comment: born with truncus arteriosus - PULMONARY Hx Respiratory Disorders: No Hx Chronic Obstructive Pulmonary Disease (COPD): No - NEUROLOGICAL Hx Neurological Disorder: No HX Cerebrovascular Accident: No Hx Dizziness: Yes Hx Seizures: (pt denies) - HEENT Hx HEENT Problems: Yes (eyeglasses) Other/Comment: 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 related noise exposure - RENAL Hx Chronic Kidney Disease: No Hx Renal Failure: No - ENDOCRINE/METABOLIC Hx Endocrine Disorders: No Hx Diabetes Mellitus Type 1: No Hx Diabetes Mellitus Type 2: No Hx Hypothyroidism: No - HEMATOLOGICAL/ONCOLOGICAL Hx Blood Disorders: No - INTEGUMENTARY Hx Dermatological Problems: No Other/Comment: tatoos, bruise to left abd and rib area, left eye orbit eccymosis fell at home 10/18/16 - MUSCULOSKELETAL/RHEUMATOLOGICAL Hx Falls: Yes - GASTROINTESTINAL Hx Gastrointestinal Disorders: Yes Hx Gastroesophageal Reflux: Yes Other/Comment: perforated ulcer X2, had sx twice, rectal bleeding due to perforations - GENITOURINARY/GYNECOLOGICAL Hx Genitourinary Disorders: No - PSYCHIATRIC Hx Psychophysiologic Disorder: Yes (ETOH abuse drinks 1/2 to 1 case beer per day ) Hx Substance Use: No - SURGICAL HISTORY Hx Gastric Bypass Surgery: Yes (around 10 yrs ago used to weigh 360 lbs) Hx Open Heart Surgery: Yes (pacemAKER 2014) - ANESTHESIA Hx Anesthesia: Yes Hx Anesthesia Reactions: No Hx Malignant Hyperthermia: No Meds Allergies/Adverse Reactions: Allergies Allergy/AdvReac Type Severity Reaction Status Date / Time No Known Allergies Allergy Verified 11/01/16 11:46 Physical Exam - Constitutional Appears: Older Than Stated Age, Chronically Ill - Head Exam Head Exam: ATRAUMATIC, NORMOCEPHALIC - Eye Exam Eye Exam: Normal appearance, PERRL. absent: Conjunctival injection Additional comments: No exopthalmos - ENT Exam ENT Exam: Mucous Membranes Moist - Neck Exam Neck exam: Negative for: Tenderness, Thyromegaly Additional comments: No JVD - Respiratory Exam Respiratory Exam: Clear to Auscultation Bilateral, NORMAL BREATHING PATTERN. absent: Accessory Muscle Use, Rales, Wheezes - Cardiovascular Exam Cardiovascular Exam: Tachycardia, Irregular Rhythm Additional comments: No displaced PMI. + S3 heard - GI/Abdominal Exam GI & Abdominal Exam: Normal Bowel Sounds, Soft. absent: Distended, Organomegaly , Rebound, Tenderness Additional comments: No ascites, hepatomegaly, or LUQ pain - Rectal Exam Rectal Exam: Deferred - Extremities Exam Extremities exam: Positive for: normal capillary refill, normal inspection, pedal pulses present. Negative for: calf tenderness, pedal edema Additional comments: warm to touch - Back Exam Back exam: NORMAL INSPECTION - Neurological Exam Neurological exam: Alert, Oriented x3, Reflexes Normal - Psychiatric Exam Psychiatric exam: Normal Mood - Skin Skin Exam: Dry, Intact, Warm Results - Vital Signs Recent Vital Signs: Last Vital Signs Temp 97.8 F 11/23/16 21:46 Pulse 170 H 11/23/16 22:03 Resp 20 11/23/16 21:40 BP 112/82 11/23/16 22:03 Pulse Ox 97 11/23/16 21:40 - Labs Result Diagrams: 11/23/16 22:00 11/23/16 22:00 Assessment & Plan - Assessment and Plan (Free Text) Assessment: 51M with PMHx of paroxysmal AFib, Tachy-Francis syndrome s/p pacemaker, HTN, cardiomyopathy (EF 31%), chronic alcoholism, and PUD admitted for atrial fibrillation with RVR, alcohol abuse, and possible withdrawal. Plan: Palpitations 2/2 likely afib with RVR: - Cardio consulted - EKG showed a-fib with rvr, HR 168 on admission - received Cardizem 20 mg IV x1 in Ed. Started on Cardizem drip at 5 mg/h. - Continued home metoprolol 50 mg PO BID - Monitor on telemetry - Troponin x1 negative, will trend with ekg Alcohol Abuse/Withdrawal: - Ativan 1 mg IVP Q2H prn - CIWA protocol with neuro checks - EtOH level 344 - Liver enzymes mildly elevated AST 142, ALT 56 - Banana bag at 70/h. - Fall risk precautions - Seizure precautions - Counseled on risks of alcohol use and advised cessation - check Mg and Phosph Leukopenia and thrombocytopenia: - likely from chronic alcohol use. - will avoid antiplts - Cont to monitor. Hx of Cardiomyopathy: - Echo 03/2016 shows EF 31%. mod dilated l venticle, systolic fxn severely impaired, severely hypokinetic lateral wall septum, right ventricle moderately dilated. RV systolic function severely reduced. - on Heart healthy diet - BNP 1390 - Lungs CTA, no JVD or leg swelling noted on exam GI/DVT ppx: - Protonix - SCDs (thrombocytopenic) Discussed with Dr. Pacheco. David Rangel, PGY1 - Date & Time Date: 11/24/16 Time: 01:06 <Everett Pacheco - Last Filed: 11/29/16 19:17> Results - Vital Signs Recent Vital Signs: Last Vital Signs Temp 97.5 F L 11/26/16 06:00 Pulse 86 11/26/16 10:00 Resp 20 11/26/16 06:00 BP 109/82 11/26/16 09:38 Pulse Ox 96 11/26/16 06:00 - Labs Result Diagrams: 11/26/16 07:00 11/26/16 07:00
[2016-11-24 01:14] LABS: MAGNESIUM 1.5 mg/dL (1.7-2.2); PHOSPHOROUS 3.7 mg/dL (2.5-4.5)
[2016-11-24] MEDS: Folic Acid 1 MG, Thiamine 100 MG, Multivitamin (MVI) 10 ML in Dextrose 5% In Water 1,00... IV SCH ×2 (01:58→02:17)
[2016-11-24] MEDS ORDERED: Magnesium Oxide 400 mg Tab UD PO STA (02:17)
[2016-11-24] MEDS ORDERED: Multi Vitamins 15 mL UD Oral Solution PO STA (02:20)
[2016-11-24] MEDS ORDERED: Pantoprazole 40 mg Susp UD PO SCH (06:00)
[2016-11-24 07:25] LABS: TROPONIN I < 0.01 ng/mL
--- NOTE | 2016-11-24 07:52 | RAD ---
HISTORY: palpitations COMPARISON: No prior. FINDINGS: LUNGS: No active pulmonary disease. PLEURA: No significant pleural effusion identified, no pneumothorax apparent. CARDIOVASCULAR: Permanent pacemaker. Possible mild cardiomegaly. Evaluation limited technically. OSSEOUS STRUCTURES: No significant abnormalities. VISUALIZED UPPER ABDOMEN: Normal. OTHER FINDINGS: None. IMPRESSION: No acute infiltrate. Permanent pacemaker. Possible mild cardiomegaly.
[2016-11-24] MEDS: Multi Vitamins 15 mL UD Oral Solution PO SCH (07:54)
[2016-11-24 08:57] LABS: ALKALINE PHOSPHATASE 183 U/L (38-126); ALT/SGPT 35 U/L (7-56); AST/SGOT 143 U/L (17-59); BILIRUBIN,TOTAL 1.1 mg/dL (0.2-1.3); BLOOD UREA NITROGEN 3 mg/dL (7-21); CALCIUM 8.7 mg/dL (8.4-10.5); CARBON DIOXIDE 22 mmol/L (21-33); CHLORIDE 106 mmol/L (98-107); GFR AFRICAN-AMERICAN > 60; GLUCOSE,RANDOM 78 mg/dL (70-110); MAGNESIUM 1.6 mg/dL (1.7-2.2); PHOSPHOROUS 4.6 mg/dL (2.5-4.5); SODIUM 140 mmol/L (132-148); TOTAL PROTEIN 7.4 g/dL (5.8-8.3)
[2016-11-24 08:58] LABS: BASO # 0.01 K/mm3 (0.0-2.0); BASO % 0.4 % (0.0-3.0); GRAN # 1.21 (1.4-6.5); HEMATOCRIT 37.9 % (42.0-52.0); LYMPH # 0.8 (1.2-3.4); MEAN CELL VOLUME 94.3 fl (80.0-105.0); MEAN CORPUSCULAR HEMOGLOBIN 32.3 pg (25.0-35.0); MEAN CORPUSCULAR HGB CONC 34.3 g/dl (31.0-37.0); MEAN PLATELET VOLUME 9.8 fl (7.0-11.0); MONO # 0.3 (0.1-0.6); MONO % 14.6 % (1.0-6.0); RED CELL DISTRIBUTION WIDTH 14.8 % (11.5-14.5)
[2016-11-24] MEDS ORDERED: Magnesium Sulfate 2 GM in Sodium Chloride 0.9% 100 ML IVPB ONE (09:09)
[2016-11-24 09:15] LABS: WHITE BLOOD COUNT 2.3 10^3/ul (4.5-11.0)
[2016-11-24] MEDS: diltiaZEM IVPB 100mg in NS 100 ML IV PRN (11:40)
[2016-11-24] MEDS: Sodium Chloride 0.9% 1,000 ML IV SCH (11:43)
--- NOTE | 2016-11-24 12:36 | CON ---
REASON FOR CONSULTATION: Rapid atrial fibrillation, alcohol intoxication and cardiomyopathy. HISTORY OF PRESENT ILLNESS: The patient is a 51-year-old male who has a history of biventricular failure, paroxysmal atrial fibrillation, ETOH abuse, peptic ulcer disease, who was admitted because of palpitation and rapid atrial fibrillation. The patient's alcohol level was 344. The patient does have a history of seizure disorder. The patient denies any chest pain at this time. SOCIAL HISTORY: The patient is ETOH abuser. He lives by himself. MEDICATIONS: Ativan 1 mg p.o. q. 12 hours p.r.n., intravenous Cardizem infusion at 5 mg/hour, multivitamin infusion, folic acid 1 mg once a day orally, Lopressor 50 mg twice a day, Protonix 40 mg p.o. twice a day, thiamine 50 mg once a day and Zofran 4 mg intravenously q. 6 hours p.r.n. for nausea and vomiting. REVIEW OF SYSTEMS: No hematemesis. No fever or chills. No retrosternal chest pain. PHYSICAL EXAMINATION GENERAL: The patient is a middle-aged male who does not appear to be in respiratory distress. He is tremulous and anxious. VITAL SIGNS: Blood pressure 103/79, heart rate 91, temperature 98.1, respirations 18. HEENT: No pallor or icterus. NECK: No JVD. CHEST: Bilateral rhonchi. HEART: S1 and S2 regular. ABDOMEN: Soft. EXTREMITIES: Trace edema. LABORATORY DATA: SMA-7 is within normal limits except for BUN of 3. Magnesium is within normal at 1.6. Hemoglobin and hematocrit 13 and 37.9 respectively, white count and platelet count are 2.3 and 88,000 respectively. INR is 0.99, PTT is 32.5. EKG revealed atrial fibrillation at rate of 123 per minute, PVCs versus aberrancy. Echocardiographic study performed in 03/2016, revealed severely depressed systolic function of both right and left ventricles with severe hypokinesis of lateral wall and septum, moderate mitral insufficiency and mild tricuspid insufficiency. ASSESSMENT: 1. Rapid atrial fibrillation. 2. Alcohol intoxication. 3. History of recent fall with recent nasal fracture and left periorbital ecchymosis enduring his most recent admission. 4. Leukopenia and thrombocytopenia. 5. Hypomagnesemia. RECOMMENDATIONS: Continue current IV Cardizem, continue Lopressor 50 mg twice a day, thiamine 50 mg once a day, magnesium sulfate 2 g intravenously has been already replaced. The patient is not a suitable candidate for anticoagulation given his history of falls and heavy ETOH abuse. The patient does have a functioning single-chamber ventricular pacemaker. Earle Patel MD
--- NOTE | 2016-11-24 13:23 | CP.PCM.PN ---
<JOSE FRANCISCOLUIS - Last Filed: 11/24/16 13:58> Subjective - Date & Time of Evaluation Date of Evaluation: 11/24/16 Time of Evaluation: 07:30 - Subjective Subjective: Luis Navarro DO PGY1 - Internal Medicine Progress Note Patient seen and examined at bedside. Patient is now actively withdrawing from alcohol. Says his last drink was 2 nights ago. Admits to nausea and tremor. Also complaining of sciatic pain. No longer complaining of palpitations, and denies any chest pain or tightness. Objective - Vital Signs/Intake and Output Vital Signs (last 24 hours): Temp Pulse Resp BP Pulse Ox 98.9 F 93 H 20 132/93 H 97 11/24/16 12:00 11/24/16 12:00 11/24/16 12:00 11/24/16 12:00 11/24/16 06:00 - Medications Medications: Current Medications Chlordiazepoxide (Librium) 25 mg PO Q8 [facility] PRN Reason: Protocol Famotidine (Pepcid) 20 mg PO 1000,2200 [facility] Folic Acid (Folic Acid) 1 mg PO DAILY [facility] Last Admin: 11/24/16 10:29 Dose: 1 mg diltiaZEM IVPB 100mg in NS (Cardizem 100mg In Ns) 100 mls @ 5 mls/hr IV .Q20H PRN; Protocol; 5 MG/HR PRN Reason: TITRATE PER MD ORDER Last Admin: 11/24/16 11:40 Dose: 5 mg/hr, 5 mls/hr Sodium Chloride (Sodium Chloride 0.9%) 1,000 mls @ 75 mls/hr IV .[id number] [facility] Last Admin: 11/24/16 11:43 Dose: 75 mls/hr Lorazepam (Ativan) 1 mg PO Q2H PRN; Protocol PRN Reason: Symptoms of alcohol withdrawl Last Admin: 11/24/16 11:49 Dose: 1 mg Metoprolol Tartrate (Lopressor) 50 mg PO BID [facility] Last Admin: 11/24/16 10:28 Dose: 50 mg Multivitamins/Vitamin C (Multi-Delyn Liquid) 15 ml PO 0800 [facility] Last Admin: 11/24/16 07:54 Dose: 15 ml Ondansetron HCl (Zofran Inj) 4 mg IVP Q6H PRN PRN Reason: Nausea/Vomiting Last Admin: 11/24/16 07:54 Dose: 4 mg Thiamine HCl (Vitamin B1 Tab) 50 mg PO DAILY [facility] Last Admin: 11/24/16 10:29 Dose: 50 mg - Labs Labs: PT 10.7 Seconds (9.9-11.8) 11/23/16 22:00 INR 0.99 (0.93-1.08) 11/23/16 22:00 APTT 32.5 Seconds (23.7-30.8) H 11/23/16 22:00 - Constitutional Appears: Non-toxic, No Acute Distress, Chronically Ill - Head Exam Head Exam: ATRAUMATIC, NORMOCEPHALIC - Eye Exam Eye Exam: EOMI, PERRL. absent: Scleral icterus - ENT Exam ENT Exam: Mucous Membranes Moist - Neck Exam Neck Exam: Normal Inspection - Respiratory Exam Respiratory Exam: Clear to Ausculation Bilateral. absent: Rales, Rhonchi, Wheezes - Cardiovascular Exam Additional comments: Irregular rhythm. Occasional tachycardia, especially with activity. - GI/Abdominal Exam GI & Abdominal Exam: Soft, Normal Bowel Sounds. absent: Tenderness - Extremities Exam Extremities Exam: absent: Calf Tenderness, Pedal Edema - Neurological Exam Neurological Exam: Alert, Awake Additional comments: Tremulous b/l UE, no asterixis. Sensation grossly intact. Patient oriented to person and place, but not time. - Psychiatric Exam Psychiatric exam: Normal Affect, Normal Mood - Skin Skin Exam: Diaphoretic, Dry, Intact Assessment and Plan - Assessment and Plan (Free Text) Assessment: 51M with PMHx of paroxysmal AFib, Tachy-Francis syndrome s/p pacemaker, HTN, cardiomyopathy (EF 31%), chronic alcoholism, and PUD admitted for atrial fibrillation with RVR, alcohol abuse, and possible withdrawal. Plan: Palpitations 2/2 likely afib with RVR in the setting of alcohol withdrawal: - EKG showed a-fib with rvr, HR 168 on admission. HR improved, though continues to occasionally become tachycardic, especially with activity. - Patient admitted to noncomplaince with medications for the past several days - Tachycardia likely worsened by alcohol withdrawal, and patient noncompliance - Cardizem drip at 5 mg/h. - Continued home metoprolol 50 mg PO BID - Monitor on telemetry - Troponin x1 negative, will trend with ekg - Cardio (Jessica) on consult, all recs appreciated Alcohol Abuse/Withdrawal: - Ativan 1 mg IVP Q2H prn - Started Librium 25mg Q8H ALLIE - Zofran PRN for nausea - CIWA protocol with neuro checks - EtOH level 344 on admission - Patient tolerating PO, switched banana bag to NS with PO MVI, folate, thiamine - Fall risk precautions - Seizure precautions - Counseled on risks of alcohol use and advised cessation - Mg 1.6, repleted. Phos mildly elevated, continue to monitor. Leukopenia and thrombocytopenia: - likely from chronic alcohol use. - will avoid antiplts - Cont to monitor. Hx of Cardiomyopathy: - Echo 03/2016 shows EF 31%. mod dilated L ventricle, systolic fxn severely impaired, severely hypokinetic lateral wall septum, right ventricle moderately dilated. RV systolic function severely reduced. - on Heart healthy diet - BNP 1390 on admission - Lungs CTA, no JVD or leg swelling noted on exam - Continue to monitor GI/DVT ppx: - Pepcid (switched from protonix because of thrombocytopenia) - SCDs (thrombocytopenic) Patient seen, discussed and reviewed with attending <Shania Garcia - Last Filed: 11/24/16 14:35> Objective - Vital Signs/Intake and Output Vital Signs (last 24 hours): Temp Pulse Resp BP Pulse Ox 98.9 F 93 H 20 132/93 H 97 11/24/16 12:00 11/24/16 12:00 11/24/16 12:00 11/24/16 12:00 11/24/16 06:00 - Medications Medications: Current Medications Chlordiazepoxide (Librium) 25 mg PO Q8 ALLIE PRN Reason: Protocol Last Admin: 11/24/16 14:19 Dose: 25 mg Famotidine (Pepcid) 20 mg PO 1000,2200 [facility] Folic Acid (Folic Acid) 1 mg PO DAILY [facility] Last Admin: 11/24/16 10:29 Dose: 1 mg diltiaZEM IVPB 100mg in NS (Cardizem 100mg In Ns) 100 mls @ 5 mls/hr IV .Q20H PRN; Protocol; 5 MG/HR PRN Reason: TITRATE PER MD ORDER Last Admin: 11/24/16 11:40 Dose: 5 mg/hr, 5 mls/hr Sodium Chloride (Sodium Chloride 0.9%) 1,000 mls @ 75 mls/hr IV .[id number] [facility] Last Admin: 11/24/16 11:43 Dose: 75 mls/hr Lorazepam (Ativan) 1 mg PO Q2H PRN; Protocol PRN Reason: Symptoms of alcohol withdrawl Last Admin: 11/24/16 11:49 Dose: 1 mg Metoprolol Tartrate (Lopressor) 50 mg PO BID [facility] Last Admin: 11/24/16 10:28 Dose: 50 mg Multivitamins/Vitamin C (Multi-Delyn Liquid) 15 ml PO 0800 [facility] Last Admin: 11/24/16 07:54 Dose: 15 ml Ondansetron HCl (Zofran Inj) 4 mg IVP Q6H PRN PRN Reason: Nausea/Vomiting Last Admin: 11/24/16 07:54 Dose: 4 mg Thiamine HCl (Vitamin B1 Tab) 50 mg PO DAILY [facility] Last Admin: 11/24/16 10:29 Dose: 50 mg - Labs Labs: PT 10.7 Seconds (9.9-11.8) 11/23/16 22:00 INR 0.99 (0.93-1.08) 11/23/16 22:00 APTT 32.5 Seconds (23.7-30.8) H 11/23/16 22:00 Attending/Attestation - Attestation I have personally seen and examined this patient.: Yes I have fully participated in the care of the patient.: Yes I have reviewed all pertinent clinical information, including history, physical exam and plan: Yes Notes (Text): 11/24/16 14:28 51 year old male with past medical history of paroxysmal afib, tachy-francis syndrome, cardiomyopathy s/p pacemaker, hypertension and chronic ETOH abuse who presented with palpitations secondary to Afib with RVR and alcohol intoxication/ withdrawal. He is on cardizem drip. He is on metoprolol. Cardiology evaluation was appreciated. 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 Continue with librium and ativan prn for withdrawal symptoms. Continue with multivitamin, folic acid and thiamine. He was counselled on alcohol abstinence. Unfortunately he fails to comply. Thrombocytopenia likely secondary to chronic ETOH abuse. Will continue to monitor closely. Will replete and repeat lytes. Anwar Radha, MD Hospitalist.
--- NOTE | 2016-11-24 13:29 | CARD ---
APPROVED REPORT EKG Measurement Heart [id number] <Conclusion> Atrial fibrillation with rapid ventricular response with premature ventricular or aberrantly conducted complexes Abnormal ECG
--- NOTE | 2016-11-24 13:37 | CARD ---
APPROVED REPORT EKG Measurement Heart [id number] <Conclusion> Atrial fibrillation with rapid ventricular response with premature ventricular or aberrantly conducted complexes Abnormal ECG
--- NOTE | 2016-11-24 13:47 | CARD ---
APPROVED REPORT EKG Measurement Heart [id number] <Conclusion> Atrial fibrillation with rapid ventricular response Nonspecific ST and T wave abnormality, probably digitalis effect Abnormal ECG
[2016-11-24 16:01] LABS: TROPONIN I < 0.01 ng/mL
[2016-11-25] MEDS: Sodium Chloride 0.9% 1,000 ML IV SCH ×2 (00:20→12:44)
[2016-11-25] MEDS ORDERED: DiphenhydrAMINE 50 mg/ml Inj IVP ONE (02:45)
[2016-11-25] MEDS: diltiaZEM IVPB 100mg in NS 100 ML IV PRN (03:46)
[2016-11-25 06:16] LABS: ALKALINE PHOSPHATASE 207 U/L (38-126); ALT/SGPT 44 U/L (7-56); AST/SGOT 111 U/L (17-59); BILIRUBIN,TOTAL 2.8 mg/dL (0.2-1.3); BLOOD UREA NITROGEN 4 mg/dL (7-21); CALCIUM 8.9 mg/dL (8.4-10.5); CARBON DIOXIDE 26 mmol/L (21-33); CHLORIDE 100 mmol/L (95-110); GFR AFRICAN-AMERICAN > 60; GLUCOSE,RANDOM 90 mg/dL (70-110); MAGNESIUM 1.9 mg/dL (1.7-2.2); PHOSPHOROUS 3.2 mg/dL (2.5-4.5); POTASSIUM 4.3 mmol/L (3.6-5.0); SODIUM 132 mmol/L (132-148); TOTAL PROTEIN 7.3 g/dL (5.8-8.3)
[2016-11-25 06:17] LABS: BASO # 0.01 K/mm3 (0.0-2.0); BASO % 0.5 % (0.0-3.0); EOS % 0.5 % (1.5-5.0); GRAN # 1.15 (1.4-6.5); GRAN % 57.2 % (50.0-68.0); HEMATOCRIT 35.7 % (42.0-52.0); LYMPH # 0.5 (1.2-3.4); LYMPH % 22.9 % (22.0-35.0); MEAN CELL VOLUME 95.7 fl (80.0-105.0); MEAN CORPUSCULAR HEMOGLOBIN 32.2 pg (25.0-35.0); MEAN CORPUSCULAR HGB CONC 33.6 g/dl (31.0-37.0); MEAN PLATELET VOLUME 10.1 fl (7.0-11.0); MONO # 0.4 (0.1-0.6); MONO % 18.9 % (1.0-6.0); RED CELL DISTRIBUTION WIDTH 14.7 % (11.5-14.5)
[2016-11-25] MEDS: Multi Vitamins 15 mL UD Oral Solution PO SCH (08:01)
--- NOTE | 2016-11-25 12:03 | CP.PCM.PN ---
Subjective - Date & Time of Evaluation Date of Evaluation: 11/25/16 Time of Evaluation: 09:00 - Subjective Subjective: Patient is feeling better, He is afebrile, denies Nausea , vomiting or diarrhea Heart rate is better controlled today Objective - Vital Signs/Intake and Output Vital Signs (last 24 hours): Temp Pulse Resp BP Pulse Ox 99.8 F H 95 H 20 124/91 H 100 11/25/16 11:37 11/25/16 11:37 11/25/16 11:37 11/25/16 11:37 11/25/16 06:00 Intake and Output: 11/25/16 11/25/16 06:59 18:59 Intake Total 1060 Output Total 400 Balance 660 - Medications Medications: Current Medications Chlordiazepoxide (Librium) 25 mg PO Q8 ALLIE PRN Reason: Protocol Last Admin: 11/25/16 05:15 Dose: 25 mg Famotidine (Pepcid) 20 mg PO 1000,2200 [facility] Last Admin: 11/25/16 09:14 Dose: 20 mg Folic Acid (Folic Acid) 1 mg PO DAILY [facility] Last Admin: 11/25/16 09:14 Dose: 1 mg Hydrocortisone (Cortizone 2.5% Cream) 0 applic TOP BID PRN PRN Reason: Itching / Pruritus Last Admin: 11/25/16 05:57 Dose: 20 applic diltiaZEM IVPB 100mg in NS (Cardizem 100mg In Ns) 100 mls @ 5 mls/hr IV .Q20H PRN; Protocol; 5 MG/HR PRN Reason: TITRATE PER MD ORDER Last Admin: 11/25/16 03:46 Dose: 5 mg/hr, 5 mls/hr Sodium Chloride (Sodium Chloride 0.9%) 1,000 mls @ 75 mls/hr IV .[id number] [facility] Last Admin: 11/25/16 00:20 Dose: Not Given Lorazepam (Ativan) 1 mg PO Q2H PRN; Protocol PRN Reason: Symptoms of alcohol withdrawl Last Admin: 11/24/16 17:57 Dose: 1 mg Metoprolol Tartrate (Lopressor) 50 mg PO BID [facility] Last Admin: 11/25/16 09:15 Dose: 50 mg Multivitamins/Vitamin C (Multi-Delyn Liquid) 15 ml PO 0800 [facility] Last Admin: 11/25/16 08:01 Dose: 15 ml Ondansetron HCl (Zofran Inj) 4 mg IVP Q6H PRN PRN Reason: Nausea/Vomiting Last Admin: 11/24/16 07:54 Dose: 4 mg Thiamine HCl (Vitamin B1 Tab) 50 mg PO DAILY [facility] Last Admin: 11/25/16 09:14 Dose: 50 mg - Labs Labs: 11/25/16 05:15 11/25/16 05:15 PT 10.7 Seconds (9.9-11.8) 11/23/16 22:00 INR 0.99 (0.93-1.08) 11/23/16 22:00 APTT 32.5 Seconds (23.7-30.8) H 11/23/16 22:00 - Constitutional Appears: Non-toxic, No Acute Distress - Head Exam Head Exam: NORMAL INSPECTION - Eye Exam Eye Exam: Normal appearance Pupil Exam: NORMAL ACCOMODATION - Neck Exam Neck Exam: Full ROM - Respiratory Exam Respiratory Exam: Clear to Ausculation Bilateral, NORMAL BREATHING PATTERN - Cardiovascular Exam Additional comments: S 1 and S 2 are irregularly irregular.No rub or gallop - GI/Abdominal Exam GI & Abdominal Exam: Soft, Normal Bowel Sounds - Extremities Exam Extremities Exam: Full ROM Additional comments: no peripheral edema - Back Exam Additional comments: no edema - Neurological Exam Neurological Exam: Alert, Awake, CN II-XII Intact, Oriented x3 Additional comments: non focal Assessment and Plan - Assessment and Plan (Free Text) Assessment: 51M with PMHx of paroxysmal AFib, Tachy-Francis syndrome s/p pacemaker, HTN, cardiomyopathy (EF 31%), chronic alcoholism, and PUD was admitted for atrial fibrillation with RVR, alcohol abuse, and alcohol withdrawal. 1.AF with RVR Heart rate is better on Metoprolol Patient is off Cardizem drip Patient is not on anticoagulation due to ongoing alcohol abuse.This issue was discussed in detail with patient - Cardio (Jessica) follow up is appreciated. 2. Alcohol Abuse/Withdrawal: Improving, still has fine tremor, no hallucination - [facility] protocol with neuro checks - EtOH level 344 on admission - Patient tolerating PO - Fall risk precautions, out of bed to chair with assistance - Seizure precautions - Counseled on risks of alcohol use and advised cessation 2 Leukopenia and thrombocytopenia due to alcohol abuse - likely from chronic alcohol use. - Patient is afebrile No evedince of bleding, we will monitor 3. GI/DVT ppx: - Pepcid (switched from protonix because of thrombocytopenia) - SCDs (thrombocytopenic) Management plan was discussed in detail with patient Education was provided. Prognosis is guarded.
--- NOTE | 2016-11-25 21:02 | CARD ---
APPROVED REPORT EKG Measurement Heart [id number] <Conclusion> Atrial fibrillation with rapid ventricular response with premature ventricular or aberrantly conducted complexes Abnormal ECG
[2016-11-26 00:47] VITALS: RESP 20
[2016-11-26 06:59] VITALS: BP 109/82; TEMP 97.5; O2SAT 96
[2016-11-26 07:27] LABS: BASO # 0.01 K/mm3 (0.0-2.0); BASO % 0.4 % (0.0-3.0); EOS % 0.4 % (1.5-5.0); GRAN # 1.15 (1.4-6.5); GRAN % 50.3 % (50.0-68.0); HEMATOCRIT 35.7 % (42.0-52.0); LYMPH # 0.7 (1.2-3.4); LYMPH % 30.1 % (22.0-35.0); MEAN CELL VOLUME 96.7 fl (80.0-105.0); MEAN CORPUSCULAR HEMOGLOBIN 31.7 pg (25.0-35.0); MEAN CORPUSCULAR HGB CONC 32.8 g/dl (31.0-37.0); MEAN PLATELET VOLUME 10.1 fl (7.0-11.0); MONO # 0.4 (0.1-0.6); MONO % 18.8 % (1.0-6.0); RED CELL DISTRIBUTION WIDTH 14.2 % (11.5-14.5)
[2016-11-26 07:49] LABS: WHITE BLOOD COUNT 2.3 10^3/ul (4.5-11.0)
[2016-11-26 07:54] LABS: ALKALINE PHOSPHATASE 177 U/L (38-126); ALT/SGPT 49 U/L (7-56); AST/SGOT 94 U/L (17-59); BILIRUBIN,TOTAL 2.2 mg/dL (0.2-1.3); BLOOD UREA NITROGEN 7 mg/dL (7-21); CALCIUM 8.9 mg/dL (8.4-10.5); CARBON DIOXIDE 24 mmol/L (21-33); CHLORIDE 105 mmol/L (98-107); GFR AFRICAN-AMERICAN > 60; GLUCOSE,RANDOM 82 mg/dL (70-110); MAGNESIUM 1.7 mg/dL (1.7-2.2); PHOSPHOROUS 3.1 mg/dL (2.5-4.5); SODIUM 137 mmol/L (132-148); TOTAL PROTEIN 6.9 g/dL (5.8-8.3)
[2016-11-26] MEDS: Multi Vitamins 15 mL UD Oral Solution PO SCH (08:10)
--- NOTE | 2016-11-26 08:21 | CP.PCM.PN ---
Subjective - Date & Time of Evaluation Date of Evaluation: 11/26/16 Time of Evaluation: 08:21 - Subjective Subjective: Jose Benito DO, PGY-1, Ho Objective - Vital Signs/Intake and Output Vital Signs (last 24 hours): Temp Pulse Resp BP Pulse Ox 97.5 F L 76 20 109/82 96 11/26/16 06:00 11/26/16 06:00 11/26/16 06:00 11/26/16 06:00 11/26/16 06:00 Intake and Output: 11/26/16 11/26/16 06:59 18:59 Intake Total 1260 Output Total 1550 Balance -290 - Medications Medications: Current Medications Chlordiazepoxide (Librium) 10 mg PO Q8 PRN; Protocol PRN Reason: Agitation Famotidine (Pepcid) 20 mg PO 1000,2200 [facility] Last Admin: 11/25/16 21:26 Dose: 20 mg Folic Acid (Folic Acid) 1 mg PO DAILY [facility] Last Admin: 11/25/16 09:14 Dose: 1 mg Hydrocortisone (Cortizone 2.5% Cream) 0 applic TOP BID PRN PRN Reason: Itching / Pruritus Last Admin: 11/25/16 05:57 Dose: 20 applic Sodium Chloride (Sodium Chloride 0.9%) 1,000 mls @ 75 mls/hr IV .[id number] [facility] Last Admin: 11/25/16 12:44 Dose: Not Given Lorazepam (Ativan) 1 mg PO Q2H PRN; Protocol PRN Reason: Symptoms of alcohol withdrawl Last Admin: 11/25/16 21:25 Dose: 1 mg Metoprolol Tartrate (Lopressor) 50 mg PO BID [facility] Last Admin: 11/25/16 17:22 Dose: 50 mg Multivitamins/Vitamin C (Multi-Delyn Liquid) 15 ml PO 0800 [facility] Last Admin: 11/26/16 08:10 Dose: 15 ml Ondansetron HCl (Zofran Inj) 4 mg IVP Q6H PRN PRN Reason: Nausea/Vomiting Last Admin: 11/24/16 07:54 Dose: 4 mg Thiamine HCl (Vitamin B1 Tab) 50 mg PO DAILY [facility] Last Admin: 11/25/16 09:14 Dose: 50 mg - Labs Labs: 11/26/16 07:00 11/26/16 07:00 PT 10.7 Seconds (9.9-11.8) 11/23/16 22:00 INR 0.99 (0.93-1.08) 11/23/16 22:00 APTT 32.5 Seconds (23.7-30.8) H 11/23/16 22:00
[2016-11-26] MEDS: Sodium Chloride 0.9% 1,000 ML IV SCH (09:40)
[2016-11-26 10:50] VITALS: PULSE 86
[2016-11-26 12:10] VITALS: PULSE 110
--- NOTE | 2016-11-26 13:03 | CP.PCM.DIS ---
Provider - Provider Date of Admission: 11/24/16 07:35 Attending physician: Shania Garcia MD Primary care physician: Kenneth Gandhi MD Time Spent in preparation of Discharge (in minutes): 35 Hospital Course - Lab Results Lab Results: Most Recent Lab Values WBC 2.3 10^3/ul (4.5-11.0) L* 11/26/16 07:00 RBC 3.69 10^6/uL (3.5-6.1) 11/26/16 07:00 Hgb 11.7 g/dL (14.0-18.0) L 11/26/16 07:00 Hct 35.7 % (42.0-52.0) L 11/26/16 07:00 MCV 96.7 fl (80.0-105.0) 11/26/16 07:00 MCH 31.7 pg (25.0-35.0) 11/26/16 07:00 MCHC 32.8 g/dl (31.0-37.0) 11/26/16 07:00 RDW 14.2 % (11.5-14.5) 11/26/16 07:00 Plt Count 59 10^3/uL (120.0-450.0) L 11/26/16 07:00 MPV 10.1 fl (7.0-11.0) 11/26/16 07:00 Gran % 50.3 % (50.0-68.0) 11/26/16 07:00 Lymph % (Auto) 30.1 % (22.0-35.0) 11/26/16 07:00 Fisher % (Auto) 18.8 % (1.0-6.0) H 11/26/16 07:00 Eos % (Auto) 0.4 % (1.5-5.0) L 11/26/16 07:00 Baso % (Auto) 0.4 % (0.0-3.0) 11/26/16 07:00 Gran # 1.15 (1.4-6.5) L 11/26/16 07:00 Lymph # 0.7 (1.2-3.4) L 11/26/16 07:00 Fisher # 0.4 (0.1-0.6) 11/26/16 07:00 Eos # 0.0 (0.0-0.7) 11/26/16 07:00 Baso # 0.01 K/mm3 (0.0-2.0) 11/26/16 07:00 PT 10.7 Seconds (9.9-11.8) 11/23/16 22:00 INR 0.99 (0.93-1.08) 11/23/16 22:00 APTT 32.5 Seconds (23.7-30.8) H 11/23/16 22:00 Sodium 137 mmol/L (132-148) 11/26/16 07:00 Potassium 4.0 mmol/L (3.6-5.0) 11/26/16 07:00 Chloride 105 mmol/L (98-107) 11/26/16 07:00 Carbon Dioxide 24 mmol/L (21-33) 11/26/16 07:00 Anion Gap 12 (10-20) 11/26/16 07:00 BUN 7 mg/dL (7-21) 11/26/16 07:00 Creatinine 0.6 mg/dL (0.5-1.4) 11/26/16 07:00 Est GFR ( Amer) > 60 11/26/16 07:00 Est GFR (Non-Af Amer) > 60 11/26/16 07:00 Random Glucose 82 mg/dL (70-110) 11/26/16 07:00 Calcium 8.9 mg/dL (8.4-10.5) 11/26/16 07:00 Phosphorus 3.1 mg/dL (2.5-4.5) 11/26/16 07:00 Magnesium 1.7 mg/dL (1.7-2.2) 11/26/16 07:00 Total Bilirubin 2.2 mg/dL (0.2-1.3) H 11/26/16 07:00 AST 94 U/L (17-59) H 11/26/16 07:00 ALT 49 U/L (7-56) 11/26/16 07:00 Alkaline Phosphatase 177 U/L (38-126) H 11/26/16 07:00 Lactate Dehydrogenase 408 U/L (333-699) 11/24/16 15:35 Total Creatine Kinase < 20 U/L (35-230) L 11/24/16 15:35 Troponin I < 0.01 ng/mL 11/24/16 15:35 NT-Pro-B Natriuret Pep 1390 pg/mL (0-450) H 11/23/16 22:00 Total Protein 6.9 g/dL (5.8-8.3) 11/26/16 07:00 Albumin 3.4 g/dL (3.0-4.8) 11/26/16 07:00 Globulin 3.5 gm/dL 11/26/16 07:00 Albumin/Globulin Ratio 1.0 (1.1-1.8) L 11/26/16 07:00 TSH 3rd Generation 2.99 mIU/mL (0.46-4.68) 11/25/16 05:15 Alcohol, Quantitative 344 mg/dL (0-10) H* 11/23/16 22:00 - Hospital Course Hospital Course: 51 year old male with past medical history of paroxysmal afib, tachy-viki syndrome, cardiomyopathy, s/p pacemaker, hypertension and chronic ETOH abuse who presented with complaint of palpitations. He was admitted for Afib with RVR and alcohol intoxication/withdrawal. He was started on banana bag and librium/ativan taper for withdrawal symptoms. He was started on cardizem drip. He is not on alf anticoagulation because of chronic ETOH abuse, frequent falls and medication/outpatient follow up noncompliance. He had pancytopenia due to chronic ETOH bone marrow suppression. This morning his HR was better controlled. His cardizem drip was discontinued. He ambulated with steady gait. However with minimal exertion his heart rate increased to >150. Case was discussed with Dr. Patel and digoxin was started. However at this time patient is requesting to sign out against medical advice. He was explained in great detail risks of signing out AMA but has signed out against medical advice. Shania Garcia MD Hospitalist. Discharge Exam - Head Exam Head Exam: NORMAL INSPECTION - Eye Exam Eye Exam: EOMI - ENT Exam ENT Exam: Normal Exam - Neck Exam Neck exam: Full Rom - Respiratory Exam Respiratory Exam: Clear to PA & Lateral. absent: Rhonchi - Cardiovascular Exam Cardiovascular Exam: Irregular Rhythm, +S1, +S2 - GI/Abdominal Exam GI & Abdominal Exam: Normal Bowel Sounds, Soft. absent: Organomegaly, Tenderness - Extremities Exam Extremities exam: normal inspection - Neurological Exam Neurological exam: Alert, Oriented x3 - Psychiatric Exam Psychiatric exam: Normal Affect, Normal Mood Discharge Plan - Follow Up Plan Condition: GUARDED Disposition: AGAINST MEDICAL ADVICE Patient education suggested?: Yes Referrals: Kenneth Gandhi MD [Primary Care Provider] -
[2016-11-26] MEDS ORDERED: Digoxin 125 mcg (0.125 mg) Tab PO SCH (14:00)
--- NOTE | 2016-11-26 15:53 | PN ---
SUBJECTIVE: The patient denies any dizziness, headache or chest pain. PHYSICAL EXAMINATION: VITAL SIGNS: Blood pressure 109/82, heart rate 80, temperature 97.5, respirations 20. HEENT: Normocephalic. CHEST: Bilateral rhonchi. HEART: S1 and S2 regular. EXTREMITIES: Trace leg edema. LABORATORY DATA: Hemoglobin and hematocrit 11.7 and 35.7. White count and platelet count are 2.3 and 59,000 both are below normal. Today's, SMA-7 is within normal limits. Total bilirubin is 2.2, magnesium is 1.7 within normal limit. ASSESSMENT: 1. Paroxysmal atrial fibrillation. 2. Dilated cardiomyopathy. 3. Status post alcohol intoxication. 4. Pancytopenia. RECOMMENDATIONS: Case was discussed with Dr. Garcia. The patient can be maintained on his current medications. However, if he decides to sign against medical advise, he will do that on his own responsibility. Earle Patel MD
--- NOTE | 2016-11-28 15:08 | PN ---
SUBJECTIVE: The patient denies chest pain. PHYSICAL EXAMINATION: VITAL SIGNS: Blood pressure 124/91, heart rate 95, temperature 99.8, respirations 20. HEENT: Review of left eye, ecchymosis. NECK: No JVD. CHEST: Bilateral rhonchi. HEART: S1 and S2 regular. EXTREMITIES: Left leg (00:25). LABORATORY DATA: Hemoglobin and hematocrit 12 and 35.7, white count 2.0, platelet count 65,000. SMA-7 is within normal limits except for BUN of 4. ASSESSMENT: 1. Status post alcohol intoxication. 2. Chronic atrial fibrillation. 3. Dilated cardiomyopathy. 4. Leukopenia and thrombocytopenia. RECOMMENDATION: Continue current IV Cardizem. Continue oral Librium. Continue Lopressor 50 mg once a day, thiamine 50 mg once a day, and normal saline at 75 mL an hour. Earle Patel MD
== END 2016-11-26 12:22 | disposition left against medical advice (07) | DRG 544 ==
LOC: ED 21:29 → ERH 23:16 → 2RNO 11-24 00:57 → OBSVTOIN 11-24 07:35
PROVIDERS: ADMIT Internal Medicine; ATTEND Internal Medicine
DX: I48.0 Paroxysmal atrial fibrillation (principal); K27.5 Chronic or unspecified peptic ulcer, site unspecified, with perforation; Q20.0 Common arterial trunk; D61.818 Other pancytopenia; I42.0 Dilated cardiomyopathy; D69.59 Other secondary thrombocytopenia; I11.0 Hypertensive heart disease with heart failure; I50.9 Heart failure, unspecified; E83.42 Hypomagnesemia; F10.239 Alcohol dependence with withdrawal, unspecified; I08.1 Rheumatic disorders of both mitral and tricuspid valves; G40.909 Epilepsy, unspecified, not intractable, without status epilepticus; I48.2 Chronic atrial fibrillation; Y90.8 Blood alcohol level of 240 mg/100 ml or more; H83.3X1 Noise effects on right inner ear; K21.9 Gastro-esophageal reflux disease without esophagitis; M54.30 Sciatica, unspecified side; R29.6 Repeated falls; Z91.19 Patient's noncompliance with other medical treatment and regimen; Z95.0 Presence of cardiac pacemaker; Z98.84 Bariatric surgery status; Z87.891 Personal history of nicotine dependence; Z80.0 Family history of malignant neoplasm of digestive organs

== ENCOUNTER 2016-12-07 00:47 | Observation (INO) | payer MEDICAID ==
[2016-12-07 00:47] VITALS: PULSE 110
--- NOTE | 2016-12-07 01:05 | ED PDOC ---
Arrival/HPI - General Time Seen by Provider: 12/07/16 00:50 Historian: Patient - History of Present Illness Narrative History of Present Illness (Text): 12/07/16 01:04 Elvis Ybarra is a 51 year old male, whose past medical history includes tachy -viki syndrome s/p pacemaker placement, paroxysmmal atrial fibrillation, cardiomyopathy, hypertension, PUD, alcohol abuse, perforated ulcer/GI bleed, and gastric bypass, who presents to the ED complaining of palpitations tonight. Patient reports associated mid-sternal chest pressure. Patient reports symptoms feel similar to previous episodes of atrial fibrillation. Patient notes he has been non-compliant with his Metoprolol. Patient denies any fever, chills, shortness of breath, nausea, vomiting, diarrhea, urinary symptoms, back pain, neck pain, headache, dizziness, or any other complaints. 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 related noise exposure - Renal Hx Renal Failure: No - Endocrine/Metabolic Hx Diabetes Mellitus Type 1: No Hx Diabetes Mellitus Type 2: No Hx Hypothyroidism: No - Hematological/Oncological Hx Blood Disorders: No - Integumentary Hx Dermatological Disorder: No Other/Comment: tatoos, bruise to left abd and rib area, left eye orbit eccymosis fell at home 10/18/16 - Musculoskeletal/Rheumatological Hx Falls: Yes - Gastrointestinal Hx Gastrointestinal Disorders: Yes Hx Gastroesophageal Reflux: Yes Other/Comment: perforated ulcer X2, had sx twice, rectal bleeding due to perforations - Genitourinary/Gynecological Hx Genitourinary Disorders: No - Psychiatric Hx Psychophysiologic Disorder: Yes (ETOH abuse drinks 1/2 to 1 case beer per day ) Hx Substance Use: No - Surgical History Hx Gastric Bypass Surgery: Yes (around 10 yrs ago used to weigh 360 lbs) Hx Open Heart Surgery: Yes (pacemAKER 2014) - Anesthesia Hx Anesthesia: Yes Hx Anesthesia Reactions: No Hx Malignant Hyperthermia: No - Suicidal Assessment Feels Threatened In Home Enviroment: No Family/Social History - Physician Review Nursing Documentation Reviewed: Yes Family/Social History: Unknown Family HX Smoking Status: Former Smoker Hx Alcohol Use: Yes (Coors light a case per day.) Amount per day: 6 Hx Substance Use: No Hx Substance Use Treatment: No Allergies/Home Meds Allergies/Adverse Reactions: Allergies No Known Allergies Allergy (Verified 11/01/16 11:46) Review of Systems - Physician Review All systems were reviewed & negative as marked: Yes - Review of Systems Constitutional: Normal. absent: Fevers Eyes: Normal ENT: Normal Respiratory: Normal. absent: SOB, Cough Cardiovascular: Chest Pain, Palpitations Gastrointestinal: Normal. absent: Abdominal Pain, Diarrhea, Nausea, Vomiting Genitourinary Male: Normal. absent: Dysuria, Frequency, Hematuria, Urinary Output Changes Musculoskeletal: Normal. absent: Back Pain, Neck Pain Skin: Normal. absent: Rash Neurological: Normal. absent: Headache, Dizziness Endocrine: Normal Hemo/Lymphatic: Normal Psychiatric: Normal Physical Exam Vital Signs Reviewed: Yes Vital Signs Pulse BP 12/07/16 03:30 122 H 101/75 Temperature: Afebrile Blood Pressure: Normal Pulse: Tachycardic Respiratory Rate: Normal Appearance: Positive for: Well-Appearing, Non-Toxic, Comfortable Pain Distress: None Mental Status: Positive for: Alert and Oriented X 3 - Systems Exam Head: Present: Atraumatic, Normocephalic Pupils: Present: PERRL Extroacular Muscles: Present: EOMI Conjunctiva: Present: Normal Mouth: Present: Moist Mucous Membranes Neck: Present: Normal Range of Motion Respiratory/Chest: Present: Clear to Auscultation, Good Air Exchange. No: Respiratory Distress, Accessory Muscle Use Cardiovascular: Present: Irregular Rhythm (Irregular, regular), Tachycardic. No : Murmurs Abdomen: Present: Normal Bowel Sounds. No: Tenderness, Distention, Peritoneal Signs Back: Present: Normal Inspection Upper Extremity: Present: Normal Inspection. No: Cyanosis, Edema Lower Extremity: Present: Normal Inspection. No: Edema Neurological: Present: GCS=15, CN II-XII Intact, Speech Normal Skin: Present: Warm, Dry, Normal Color. No: Rashes Psychiatric: Present: Alert, Oriented x 3, Normal Insight, Normal Concentration Medical Decision Making ED Course and Treatment: 12/07/16 01:04 Impression: 51 year old male complaining of palpitations and chest pressure. Plan: -- EKG -- Chest X-ray -- Labs, cardiac enzymes -- Reassess and disposition Prior Visits: Notes and results from previous visits were reviewed. Progress Notes: Reviewed EKG, a fib at [address] bpm[address] Non-specific ST/T wave changes. 12/07/16 03:37 Case was d/w medical office coordinator and house MD Villanueva.Accepts to the hospitalist service. 12/07/16 04:12 Reviewed radiology, Chest X-ray shows cardiomegaly. - Lab Interpretations Lab Results: 12/07/16 03:20 12/07/16 01:39 Lab Results 12/07/16 03:20: WBC 2.5 L*, RBC 3.66, Hgb 11.6 L, Hct 33.3 L, MCV 91.0 D, MCH 31.7, MCHC 34.8, RDW 13.3, Plt Count 160, MPV 9.4 12/07/16 01:39: Sodium 130 L, Potassium 4.5, Chloride 95 L, Carbon Dioxide 25, Anion Gap 15, BUN 5 L, Creatinine 0.6, Est GFR ( Amer) > 60, Est GFR (Non -Af Amer) > 60, Random Glucose 58 L, Calcium 8.4, Total Bilirubin 0.7, AST 150 H D, ALT 46, Alkaline Phosphatase 122, Lactate Dehydrogenase 444, Total Creatine Kinase 50, Troponin I < 0.01, Total Protein 6.9, Albumin 3.5, Globulin 3.3, Albumin/Globulin Ratio 1.1 12/07/16 01:39: PT 10.7, INR 0.99, APTT 31.2 H I have reviewed the lab results: Yes - RAD Interpretation Radiology Orders: 12/07/16 01:41 CHEST PORTABLE [RAD] Stat Assistant Gm Of Content & Delivery: ED Physician - EKG Interpretation Interpreted by ED Physician: Yes Type: 12 lead EKG - Medication Orders Current Medication Orders: diltiaZEM IVPB 100mg in NS (Cardizem 100mg In Ns) 100 mls @ 5 mls/hr IV .Q20H PRN; Protocol; 5 MG/HR PRN Reason: TITRATE PER MD ORDER Last Admin: 12/07/16 03:30 Dose: 5 mls/hr eMAR Start Stop Document 12/07/16 03:30 SS (Rec: 12/07/16 03:31 SS [id number]) Intravenous Solution Start Date 12/07/16 Start Time 03:30 MAR Pulse and Blood Pressure Document 12/07/16 03:30 SS (Rec: 12/07/16 03:31 SS [id number]) Pulse Pulse Rate (60-90 beats/min) 122 Blood Pressure Blood Pressure (100/60-150/90 mm Hg) 101/75 Discontinued Medications Diltiazem HCl (Cardizem) 10 mg IVP ONCE ONE Stop: 12/07/16 02:32 Last Admin: 12/07/16 03:30 Dose: 10 mg IVP Administration Document 12/07/16 03:30 SS (Rec: 12/07/16 03:30 SS [id number]) Charges for Administration # of IVP Administrations 1 MAR Pulse and Blood Pressure Document 12/07/16 03:30 SS (Rec: 12/07/16 03:30 SS [id number]) Pulse Pulse Rate (60-90 beats/min) 122 Blood Pressure Blood Pressure (100/60-150/90 mm Hg) 101/75 Sodium Chloride (Sodium Chloride 0.9%) 250 mls @ 250 mls/hr IV .Q1H STA Stop: 12/07/16 02:42 Last Admin: 12/07/16 01:40 Dose: 250 mls/hr eMAR Start Stop Document 12/07/16 01:40 SS (Rec: 12/07/16 02:27 SS [id number]) Intravenous Solution Start Date 12/07/16 Start Time 01:40 - Scribe Statement The provider has reviewed the documentation as recorded by the Scribe Ary Jensen All medical record entries made by the [facility] were at my direction and personally dictated by me. I have reviewed the chart and agree that the record accurately reflects my personal performance of the history, physical exam, medical decision making, and the department course for this patient. I have also personally directed, reviewed, and agree with the discharge instructions and disposition. Disposition/Present on Arrival - Present on Arrival Any Indicators Present on Arrival: No History of DVT/PE: No History of Uncontrolled Diabetes: No Urinary Catheter: No History Surgical Site Infection Following: None - Disposition Have Diagnosis and Disposition been Completed?: Yes Diagnosis: Rapid atrial fibrillation, Chest pain Disposition: HOSPITALIZED Disposition Time: 03:33 Patient Plan: Observation Patient Problems: Current Active Problems Problem Status Onset Chest pain Acute Rapid atrial fibrillation Acute Condition: STABLE
[2016-12-07] MEDS ORDERED: Sodium Chloride 0.9% 250 ML IV STA (01:43)
[2016-12-07 02:18] LABS: INR 0.99 (0.93-1.08); PARTIAL THROMBOPLASTIN TIME 31.2 Seconds (23.7-30.8)
[2016-12-07 02:19] LABS: ALB/GLOB RATIO 1.1 (1.1-1.8); ALKALINE PHOSPHATASE 122 U/L (38-126); ALT/SGPT 46 U/L (7-56); AST/SGOT 150 U/L (17-59); BILIRUBIN,TOTAL 0.7 mg/dL (0.2-1.3); BLOOD UREA NITROGEN 5 mg/dL (7-21); CALCIUM 8.4 mg/dL (8.4-10.5); CARBON DIOXIDE 25 mmol/L (21-33); CHLORIDE 95 mmol/L (98-107); GFR AFRICAN-AMERICAN > 60; GLUCOSE,RANDOM 58 mg/dL (70-110); POTASSIUM 4.5 mmol/L (3.6-5.0); SODIUM 130 mmol/L (132-148); TOTAL PROTEIN 6.9 g/dL (5.8-8.3)
[2016-12-07] MEDS ORDERED: diltiaZEM IVPB 100mg in NS 100 ML IV PRN (02:32)
[2016-12-07 02:36] LABS: TROPONIN I < 0.01 ng/mL
[2016-12-07 03:57] LABS: HEMATOCRIT 33.3 % (42.0-52.0); MEAN CORPUSCULAR HEMOGLOBIN 31.7 pg (25.0-35.0); MEAN CORPUSCULAR HGB CONC 34.8 g/dl (31.0-37.0); MEAN PLATELET VOLUME 9.4 fl (7.0-11.0); RED CELL DISTRIBUTION WIDTH 13.3 % (11.5-14.5)
[2016-12-07 03:59] LABS: WHITE BLOOD COUNT 2.5 10^3/ul (4.5-11.0)
[2016-12-07] MEDS ORDERED: Multivitamin (MVI) 10 ML, Thiamine 100 MG, Folic Acid 1 MG in Sodium Chloride 0.9% 1,00... IV SCH (05:14)
--- NOTE | 2016-12-07 05:35 | CP.PCM.HP ---
<BESSIE NAVARRO - Last Filed: 12/07/16 05:23> History of Present Illness - History of Present Illness History of Present Illness: Bessie Navarro DO PGY1 - Internal Meidicine H&P CC: Palpitations HPI: 51M with PMH of paroxysmal AFib (no AC), Tachy-Francis syndrome s/p pacemaker , HTN, cardiomyopathy, alcohol abuse, and PUD presents with palpations since this morning. It started while pt was watching TV, he felt palpitations, associated with midsternal chest pressure, not worsened by exertion. He denies sob, diaphoresis, abdominal pain, n/v. He also denies insomnia, excessive caffeine intake, h/a, f/c, cough, constipation, diarrhea, urinary symptoms, leg swelling. Pt tried using any vagal maneuvers, including valsalva maneuver. He has had these symptoms many times in the past, and was recently admitted for the same. Patient reports that he has not been taking his home metoprolol consistently, and has not had follow up with a manager diabetes in years. Pt not on anticoagulation for afib due to frequent falls, noncompliance. 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 He usually drinks 1/2-1 case beer/day. Prev Hosp: Multiple visits to [facility] [place] for afib with RVR, Chest pain; last visit 2016 for afib with RVR, signed out AMA, as he did in prior admissions as well. PMH: paroxysmal AFib, Tachy-Frnacis syndrome s/p pacemaker, HTN, cardiomyopathy ( EF 31%), chronic alcoholism, and PUD PSH: Gastric bypass with multiple complications afterwards; peptic ulcer repair Family Hx: Father-Liver Cancer Social Hx: Tob denies; chronic alcohol abuse-drinks at least one 24-pack of Coors Lite per day since his 20's; illicits denies All: NKDA Home Meds: Metoprolol 50mg PO bid (non compliant) PMD: Dr. Arellano - has not seen him over many months ROS - as in HPI Present on Admission - Present on Admission Any Indicators Present on Admission: No Past Patient History - Infectious Disease Hx of Infectious Diseases: None - Tetanus Immunizations Tetanus Immunization: Unknown - Past Medical History & Family History Past Medical History?: Yes - Past Social History Smoking Status: Former Smoker - CARDIAC Hx Cardiac Disorders: Yes Hx Hypertension: Yes - PULMONARY Hx Chronic Obstructive Pulmonary Disease (COPD): No - NEUROLOGICAL HX Cerebrovascular Accident: No - HEENT Hx HEENT Problems: Yes (eyeglasses) Other/Comment: 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 related noise exposure - RENAL Hx Renal Failure: No - ENDOCRINE/METABOLIC Hx Diabetes Mellitus Type 1: No Hx Diabetes Mellitus Type 2: No Hx Hypothyroidism: No - HEMATOLOGICAL/ONCOLOGICAL Hx Blood Disorders: No - INTEGUMENTARY Hx Dermatological Problems: No Other/Comment: tatoos, bruise to left abd and rib area, left eye orbit eccymosis fell at home 10/18/16 - MUSCULOSKELETAL/RHEUMATOLOGICAL Hx Falls: Yes - GASTROINTESTINAL Hx Gastrointestinal Disorders: Yes Hx Gastroesophageal Reflux: Yes Other/Comment: perforated ulcer X2, had sx twice, rectal bleeding due to perforations - GENITOURINARY/GYNECOLOGICAL Hx Genitourinary Disorders: No - PSYCHIATRIC Hx Psychophysiologic Disorder: Yes (ETOH abuse drinks 1/2 to 1 case beer per day ) Hx Substance Use: No - SURGICAL HISTORY Hx Gastric Bypass Surgery: Yes (around 10 yrs ago used to weigh 360 lbs) Hx Open Heart Surgery: Yes (pacemAKER 2014) - ANESTHESIA Hx Anesthesia: Yes Hx Anesthesia Reactions: No Hx Malignant Hyperthermia: No Meds Allergies/Adverse Reactions: Allergies Allergy/AdvReac Type Severity Reaction Status Date / Time No Known Allergies Allergy Verified 11/01/16 11:46 Physical Exam - Constitutional Appears: Non-toxic, No Acute Distress Additional comments: inebriated - Head Exam Head Exam: ATRAUMATIC, NORMOCEPHALIC - Eye Exam Eye Exam: EOMI, Normal appearance, PERRL - ENT Exam ENT Exam: Mucous Membranes Moist - Neck Exam Neck exam: Negative for: Lymphadenopathy, Thyromegaly - Respiratory Exam Respiratory Exam: Clear to Auscultation Bilateral. absent: Rales, Rhonchi, Wheezes - Cardiovascular Exam Cardiovascular Exam: Irregular Rhythm, +S1, +S2 Additional comments: HR labile, 90's to 100's - GI/Abdominal Exam GI & Abdominal Exam: Distended, Normal Bowel Sounds, Soft. absent: Tenderness - Extremities Exam Extremities exam: Negative for: calf tenderness, pedal edema - Neurological Exam Neurological exam: Alert Additional comments: Oriented to person and place, but not time - Psychiatric Exam Psychiatric exam: Normal Affect, Normal Mood - Skin Skin Exam: Dry, Intact, Normal Color Results - Vital Signs Recent Vital Signs: Last Vital Signs Temp Pulse 80 12/07/16 04:59 Resp 20 12/07/16 04:59 BP 119/63 12/07/16 04:59 Pulse Ox 95 12/07/16 04:59 - Labs Result Diagrams: 12/07/16 03:20 12/07/16 01:39 Assessment & Plan - Assessment and Plan (Free Text) Assessment: 51M with PMHx of paroxysmal AFib, Tachy-Francis syndrome s/p pacemaker, HTN, cardiomyopathy (EF 31%), chronic alcoholism, and PUD admitted for atrial fibrillation with RVR, alcohol abuse, and possible withdrawal. Plan: Palpitations 2/2 likely afib with RVR: - EKG showed a-fib with rvr, HR 144 on admission; HR improved after administration of cardizem - received Cardizem 10 mg IV x1 in Ed. Started on Cardizem drip at 5 mg/h. - Continue home metoprolol 50 mg PO BID - Monitor on telemetry - Troponin x1 negative, continue to trend Alcohol Abuse/Withdrawal: - CIWA protocol Q4 ordered - EtOH level ordered, pending - Liver enzymes mildly elevated AST 150, ALT 46 - Banana bag at 70/h (low rate because of h/o cardiomyopathy with EF 31%) - Fall risk precautions - Seizure precautions - Counseled on risks of alcohol use and advised cessation - check Mg and Phosph Leukopenia, h/o thrombocytopenia: - likely from chronic alcohol use. - will avoid antiplts - Cont to monitor Hx of Cardiomyopathy: - Echo 03/2016 shows EF 31%. mod dilated l venticle, systolic fxn severely impaired, severely hypokinetic lateral wall septum, right ventricle moderately dilated. RV systolic function severely reduced. - on Heart healthy diet - BNP ordered, pending - Lungs CTA b/l, no JVD or leg swelling noted on exam GI/DVT ppx: - Pepcid - SCDs Patient seen, discussed, and reviewed with attending <Edwin Caal - Last Filed: 12/09/16 20:02> Results - Vital Signs Recent Vital Signs: Last Vital Signs Temp 98.2 F 12/08/16 11:44 Pulse 87 12/08/16 11:44 Resp 12/08/16 11:44 BP 152/101 H 12/08/16 11:44 Pulse Ox 97 12/08/16 06:00 - Labs Result Diagrams: 12/08/16 06:55 12/08/16 06:55 Attending/Attestation - Attestation I have personally seen and examined this patient.: Yes I have fully participated in the care of the patient.: Yes I have reviewed all pertinent clinical information: Yes Notes (Text): 12/09/16 20:01 Agree with history, physical examination, assessment and plan.
[2016-12-07] MEDS: Multivitamin (MVI) 10 ML, Thiamine 100 MG, Folic Acid 1 MG in Sodium Chloride 0.9% 1,00... IV SCH (07:30)
--- NOTE | 2016-12-07 11:18 | RAD ---
HISTORY: chest pain COMPARISON: November 23/2017 FINDINGS: LUNGS: No active pulmonary disease. PLEURA: No significant pleural effusion identified, no pneumothorax apparent. CARDIOVASCULAR: Mild cardiomegaly. Single lead pacemaker OSSEOUS STRUCTURES: No significant abnormalities. VISUALIZED UPPER ABDOMEN: GE junction clips OTHER FINDINGS: None. IMPRESSION: No active disease. No interval change
[2016-12-07 17:29] VITALS: BMI 33.7
[2016-12-07 18:32] LABS: URINE BILIRUBIN NEGATIVE (NEGATIVE); URINE BLOOD NEGATIVE (NEGATIVE); URINE GLUCOSE (UA) NEGATIVE (NEGATIVE); URINE KETONE NEGATIVE (NEGATIVE); URINE LEUKOCYTE ESTERASE NEGATIVE Leu/uL (NEGATIVE); URINE PROTEIN NEGATIVE mg/dL (<30 mg/dL); URINE UROBILINOGEN 0.2 E.U./dL (<1 E.U./dL)
[2016-12-07 18:38] LABS: URINE APPEARANCE CLEAR (CLEAR); URINE COLOR YELLOW (YELLOW)
--- NOTE | 2016-12-07 23:17 | CARD ---
APPROVED REPORT EKG Measurement Heart [id number] <Conclusion> Atrial fibrillation with rapid ventricular response Nonspecific T wave abnormality, probably digitalis effect Abnormal ECG
[2016-12-07 23:31] VITALS: RESP 20
[2016-12-08] MEDS: Multivitamin (MVI) 10 ML, Thiamine 100 MG, Folic Acid 1 MG in Sodium Chloride 0.9% 1,00... IV SCH (00:43)
--- NOTE | 2016-12-08 03:06 | CON ---
DATE: REASON FOR CONSULTATION: Congestive heart failure. HISTORY OF PRESENT ILLNESS: The patient is a 51-year-old male who has a history of dilated cardiomyopathy, history of paroxysmal atrial fibrillation, history of single-chamber ventricular pacemaker placement, history of ETOH abuse, has multiple admissions lately for either alcohol intoxication, rapid atrial fibrillation, and recently for a fall in the bathroom where he sustained a nasal fracture as well as significant left periorbital ecchymosis. The patient is noncompliant with medication. He continues to drink. He presented because of palpitation, found to be in rapid atrial fibrillation. SOCIAL HISTORY: The patient is a heavy EtOH abuser. MEDICATIONS: Ativan 2 mg p.o. q. 6 hours, folic acid 1 mg once a day, Lopressor 50 mg once a day, multivitamin infusion including thiamine, Pepcid 20 mg p.o. twice a day, thiamine 100 mg p.o. daily, Zofran 4 mg intravenously q. 4 hours p.r.n. REVIEW OF SYSTEMS: No fall at this time and no retrosternal chest pain. PHYSICAL EXAMINATION GENERAL: The patient is a middle-aged male who is currently tremulous and anxious. VITAL SIGNS: Blood pressure 119/64, heart rate 81, no temperature has been posted yet in the [place] database. HEENT: Normocephalic. HEART: S1 and S2 regular. CHEST: Minimal rhonchi. ABDOMEN: Soft. EXTREMITIES: 1+ pitting edema. LABORATORY DATA: Hemoglobin and hematocrit 11.6 and 32.3, white count 2.5, platelet count 160,000. SMA-7, sodium 130, potassium 4.5, chloride 95, CO2 of 25, glucose 58, BUN 5, creatinine 0.6. Two sets of troponins are negative. ProBNP is 713. INR 0.99. PTT is 31.2, alcohol level 275. EKG revealed atrial fibrillation at a rate of 141, nonspecific ST-T wave changes. ASSESSMENT: 1. Alcohol intoxication. 2. Rapid atrial fibrillation. 3. Biventricular failure. CONDITIONS: Continue current multivitamins including thiamine, continue Lopressor 50 mg twice a day, start digoxin at 0.25 mg orally daily. The patient is not a suitable candidate for anticoagulation because of his history of recurrent falls, questionable seizure disorder and extreme noncompliance. Earle Patel MD
[2016-12-08 06:41] VITALS: PULSE 87; O2SAT 97
[2016-12-08 07:11] LABS: ALB/GLOB RATIO 0.9 (1.1-1.8); ALKALINE PHOSPHATASE 128 U/L (38-126); ALT/SGPT 49 U/L (7-56); AST/SGOT 106 U/L (17-59); BILIRUBIN,TOTAL 2.1 mg/dL (0.2-1.3); BLOOD UREA NITROGEN 7 mg/dL (7-21); CALCIUM 8.9 mg/dL (8.4-10.5); CARBON DIOXIDE 26 mmol/L (21-33); CHLORIDE 103 mmol/L (95-110); GFR AFRICAN-AMERICAN > 60; GLUCOSE,RANDOM 82 mg/dL (70-110); MAGNESIUM 1.6 mg/dL (1.7-2.2); PHOSPHOROUS 3.7 mg/dL (2.5-4.5); POTASSIUM 4.1 mmol/L (3.6-5.0); SODIUM 137 mmol/L (132-148); TOTAL PROTEIN 6.7 g/dL (5.8-8.3)
[2016-12-08 07:13] LABS: BASO # 0.01 K/mm3 (0.0-2.0); BASO % 0.6 % (0.0-3.0); EOS % 0.6 % (1.5-5.0); GRAN # 0.85 (1.4-6.5); GRAN % 49.1 % (50.0-68.0); HEMATOCRIT 33.6 % (42.0-52.0); LYMPH # 0.6 (1.2-3.4); LYMPH % 32.9 % (22.0-35.0); MEAN CELL VOLUME 93.6 fl (80.0-105.0); MEAN CORPUSCULAR HEMOGLOBIN 30.9 pg (25.0-35.0); MEAN PLATELET VOLUME 9.8 fl (7.0-11.0); MONO # 0.3 (0.1-0.6); MONO % 16.8 % (1.0-6.0); RED CELL DISTRIBUTION WIDTH 13.4 % (11.5-14.5)
[2016-12-08 07:36] LABS: WHITE BLOOD COUNT 1.7 10^3/ul (4.5-11.0)
[2016-12-08] MEDS ORDERED: Multivitamin Therapeutic Tab PO SCH (10:00)
[2016-12-08] MEDS ORDERED: Magnesium Oxide 400 mg Tab UD PO SCH (10:00)
[2016-12-08] MEDS ORDERED: Digoxin 500 mcg/2ml (0.5 mg/2ml) Inj IVP ONE (10:28)
[2016-12-08 11:45] VITALS: BP 152/101; TEMP 98.2
[2016-12-08] MEDS ORDERED: Digoxin 250 mcg (0.25 mg) Tab PO SCH (14:00)
--- NOTE | 2016-12-08 14:01 | CP.PCM.DIS ---
<Jose Benito - Last Filed: 12/08/16 16:26> Provider - Provider Date of Admission: 12/07/16 03:34 Attending physician: Elsie Garcia MD Consults: dr. Patel Time Spent in preparation of Discharge (in minutes): 33 Hospital Course - Lab Results Lab Results: Most Recent Lab Values WBC 1.7 10^3/ul (4.5-11.0) L* D 12/08/16 06:55 RBC 3.59 10^6/uL (3.5-6.1) 12/08/16 06:55 Hgb 11.1 g/dL (14.0-18.0) L 12/08/16 06:55 Hct 33.6 % (42.0-52.0) L 12/08/16 06:55 MCV 93.6 fl (80.0-105.0) 12/08/16 06:55 MCH 30.9 pg (25.0-35.0) 12/08/16 06:55 MCHC 33.0 g/dl (31.0-37.0) 12/08/16 06:55 RDW 13.4 % (11.5-14.5) 12/08/16 06:55 Plt Count 102 10^3/uL (120.0-450.0) L 12/08/16 06:55 MPV 9.8 fl (7.0-11.0) 12/08/16 06:55 Gran % 49.1 % (50.0-68.0) L 12/08/16 06:55 Lymph % (Auto) 32.9 % (22.0-35.0) 12/08/16 06:55 Floyd % (Auto) 16.8 % (1.0-6.0) H 12/08/16 06:55 Eos % (Auto) 0.6 % (1.5-5.0) L 12/08/16 06:55 Baso % (Auto) 0.6 % (0.0-3.0) 12/08/16 06:55 Gran # 0.85 (1.4-6.5) L 12/08/16 06:55 Lymph # 0.6 (1.2-3.4) L 12/08/16 06:55 Floyd # 0.3 (0.1-0.6) 12/08/16 06:55 Eos # 0.0 (0.0-0.7) 12/08/16 06:55 Baso # 0.01 K/mm3 (0.0-2.0) 12/08/16 06:55 PT 10.7 Seconds (9.9-11.8) 12/07/16 01:39 INR 0.99 (0.93-1.08) 12/07/16 01:39 APTT 31.2 Seconds (23.7-30.8) H 12/07/16 01:39 Sodium 137 mmol/L (132-148) 12/08/16 06:55 Potassium 4.1 mmol/L (3.6-5.0) 12/08/16 06:55 Chloride 103 mmol/L (95-110) 12/08/16 06:55 Carbon Dioxide 26 mmol/L (21-33) 12/08/16 06:55 Anion Gap 12 (10-20) 12/08/16 06:55 BUN 7 mg/dL (7-21) 12/08/16 06:55 Creatinine 0.6 mg/dL (0.5-1.4) 12/08/16 06:55 Est GFR ( Amer) > 60 12/08/16 06:55 Est GFR (Non-Af Amer) > 60 12/08/16 06:55 Random Glucose 82 mg/dL (70-110) 12/08/16 06:55 Calcium 8.9 mg/dL (8.4-10.5) 12/08/16 06:55 Phosphorus 3.7 mg/dL (2.5-4.5) 12/08/16 06:55 Magnesium 1.6 mg/dL (1.7-2.2) L 12/08/16 06:55 Total Bilirubin 2.1 mg/dL (0.2-1.3) H 12/08/16 06:55 AST 106 U/L (17-59) H D 12/08/16 06:55 ALT 49 U/L (7-56) 12/08/16 06:55 Alkaline Phosphatase 128 U/L (38-126) H 12/08/16 06:55 Lactate Dehydrogenase 444 U/L (333-699) 12/07/16 01:39 Total Creatine Kinase 50 U/L (35-230) 12/07/16 01:39 Troponin I < 0.01 ng/mL 12/07/16 18:43 NT-Pro-B Natriuret Pep 713 pg/mL (0-450) H 12/07/16 01:45 Total Protein 6.7 g/dL (5.8-8.3) 12/08/16 06:55 Albumin 3.2 g/dL (3.0-4.8) 12/08/16 06:55 Globulin 3.5 gm/dL 12/08/16 06:55 Albumin/Globulin Ratio 0.9 (1.1-1.8) L 12/08/16 06:55 Urine Color Yellow (YELLOW) 12/07/16 18:25 Urine Appearance Clear (CLEAR) 12/07/16 18:25 Urine pH 7.0 (4.7-8.0) 12/07/16 18:25 Ur Specific [place] <= 1.005 (1.005-1.035) 12/07/16 18:25 Urine Protein Negative mg/dL (<30 mg/dL) 12/07/16 18:25 Urine Glucose (UA) Negative mg/dL (NEGATIVE) 12/07/16 18:25 Urine Ketones Negative mg/dL (NEGATIVE) 12/07/16 18:25 Urine Blood Negative (NEGATIVE) 12/07/16 18:25 Urine Nitrate Negative (NEGATIVE) 12/07/16 18:25 Urine Bilirubin Negative (NEGATIVE) 12/07/16 18:25 Urine Urobilinogen 0.2 E.U./dL (<1 E.U./dL) 12/07/16 18:25 Ur Leukocyte Esterase Negative Abdi/uL (NEGATIVE) 12/07/16 18:25 Urine Opiates Screen Negative (NEGATIVE) 12/07/16 18:25 Urine Methadone Screen Negative (NEGATIVE) 12/07/16 18:25 Ur Barbiturates Screen Negative (NEGATIVE) 12/07/16 18:25 Ur Phencyclidine Scrn Negative (NEGATIVE) 12/07/16 18:25 Ur Amphetamines Screen Negative (NEGATIVE) 12/07/16 18:25 U Benzodiazepines Scrn Positive (NEGATIVE) H 12/07/16 18:25 U Oth Cocaine Metabols Negative (NEGATIVE) 12/07/16 18:25 U Cannabinoids Screen Negative (NEGATIVE) 12/07/16 18:25 Alcohol, Quantitative 275 mg/dL (0-10) H 12/07/16 01:45 - Hospital Course Hospital Course: 51M with PMH of paroxysmal AFib (no AC), Tachy-Francis syndrome s/p pacemaker, HTN , cardiomyopathy, alcohol abuse, and PUD presents with palpations since this morning. It started while pt was watching TV, he felt palpitations, associated with midsternal chest pressure, not worsened by exertion. He denies sob, diaphoresis, abdominal pain, n/v. He also denies insomnia, excessive caffeine intake, h/a, f/c, cough, constipation, diarrhea, urinary symptoms, leg swelling. Pt tried using any vagal maneuvers, including valsalva maneuver. He has had these symptoms many times in the past, and was recently admitted for the same. Patient reports that he has not been taking his home metoprolol consistently, and has not had follow up with a contractor buyer in years. Pt not on anticoagulation for afib due to frequent falls, noncompliance. Patient signed out AMA, risk and benefits were discussed with the patient at length. He was given a prescription for the medications needed for his atrial fibrillation. - Date & Time of H&P Date of H&P: 12/08/16 Time of H&P: 13:40 Discharge Exam - Head Exam Head Exam: ATRAUMATIC, NORMOCEPHALIC Discharge Plan - Discharge Medications Prescriptions: Digoxin [Lanoxin] 0.25 mg PO DAILY #30 tab Diltiazem HCl [Diltiazem 24Hr Cd] 240 mg PO DAILY #30 cap.er.24h Metoprolol Tartrate [Lopressor] 50 mg PO BID #60 tab - Follow Up Plan Condition: STABLE Disposition: AGAINST MEDICAL ADVICE <Elsie Garcia - Last Filed: 12/08/16 16:43> Provider - Provider Date of Admission: 12/07/16 03:34 Attending physician: Elsie Garcia MD Hospital Course - Lab Results Lab Results: Most Recent Lab Values WBC 1.7 10^3/ul (4.5-11.0) L* D 12/08/16 06:55 RBC 3.59 10^6/uL (3.5-6.1) 12/08/16 06:55 Hgb 11.1 g/dL (14.0-18.0) L 12/08/16 06:55 Hct 33.6 % (42.0-52.0) L 12/08/16 06:55 MCV 93.6 fl (80.0-105.0) 12/08/16 06:55 MCH 30.9 pg (25.0-35.0) 12/08/16 06:55 MCHC 33.0 g/dl (31.0-37.0) 12/08/16 06:55 RDW 13.4 % (11.5-14.5) 12/08/16 06:55 Plt Count 102 10^3/uL (120.0-450.0) L 12/08/16 06:55 MPV 9.8 fl (7.0-11.0) 12/08/16 06:55 Gran % 49.1 % (50.0-68.0) L 12/08/16 06:55 Lymph % (Auto) 32.9 % (22.0-35.0) 12/08/16 06:55 Floyd % (Auto) 16.8 % (1.0-6.0) H 12/08/16 06:55 Eos % (Auto) 0.6 % (1.5-5.0) L 12/08/16 06:55 Baso % (Auto) 0.6 % (0.0-3.0) 12/08/16 06:55 Gran # 0.85 (1.4-6.5) L 12/08/16 06:55 Lymph # 0.6 (1.2-3.4) L 12/08/16 06:55 Floyd # 0.3 (0.1-0.6) 12/08/16 06:55 Eos # 0.0 (0.0-0.7) 12/08/16 06:55 Baso # 0.01 K/mm3 (0.0-2.0) 12/08/16 06:55 PT 10.7 Seconds (9.9-11.8) 12/07/16 01:39 INR 0.99 (0.93-1.08) 12/07/16 01:39 APTT 31.2 Seconds (23.7-30.8) H 12/07/16 01:39 Sodium 137 mmol/L (132-148) 12/08/16 06:55 Potassium 4.1 mmol/L (3.6-5.0) 12/08/16 06:55 Chloride 103 mmol/L (95-110) 12/08/16 06:55 Carbon Dioxide 26 mmol/L (21-33) 12/08/16 06:55 Anion Gap 12 (10-20) 12/08/16 06:55 BUN 7 mg/dL (7-21) 12/08/16 06:55 Creatinine 0.6 mg/dL (0.5-1.4) 12/08/16 06:55 Est GFR ( Amer) > 60 12/08/16 06:55 Est GFR (Non-Af Amer) > 60 12/08/16 06:55 Random Glucose 82 mg/dL (70-110) 12/08/16 06:55 Calcium 8.9 mg/dL (8.4-10.5) 12/08/16 06:55 Phosphorus 3.7 mg/dL (2.5-4.5) 12/08/16 06:55 Magnesium 1.6 mg/dL (1.7-2.2) L 12/08/16 06:55 Total Bilirubin 2.1 mg/dL (0.2-1.3) H 12/08/16 06:55 AST 106 U/L (17-59) H D 12/08/16 06:55 ALT 49 U/L (7-56) 12/08/16 06:55 Alkaline Phosphatase 128 U/L (38-126) H 12/08/16 06:55 Lactate Dehydrogenase 444 U/L (333-699) 12/07/16 01:39 Total Creatine Kinase 50 U/L (35-230) 12/07/16 01:39 Troponin I < 0.01 ng/mL 12/07/16 18:43 NT-Pro-B Natriuret Pep 713 pg/mL (0-450) H 12/07/16 01:45 Total Protein 6.7 g/dL (5.8-8.3) 12/08/16 06:55 Albumin 3.2 g/dL (3.0-4.8) 12/08/16 06:55 Globulin 3.5 gm/dL 12/08/16 06:55 Albumin/Globulin Ratio 0.9 (1.1-1.8) L 12/08/16 06:55 Urine Color Yellow (YELLOW) 12/07/16 18:25 Urine Appearance Clear (CLEAR) 12/07/16 18:25 Urine pH 7.0 (4.7-8.0) 12/07/16 18:25 Ur Specific [place] <= 1.005 (1.005-1.035) 12/07/16 18:25 Urine Protein Negative mg/dL (<30 mg/dL) 12/07/16 18:25 Urine Glucose (UA) Negative mg/dL (NEGATIVE) 12/07/16 18:25 Urine Ketones Negative mg/dL (NEGATIVE) 12/07/16 18:25 Urine Blood Negative (NEGATIVE) 12/07/16 18:25 Urine Nitrate Negative (NEGATIVE) 12/07/16 18:25 Urine Bilirubin Negative (NEGATIVE) 12/07/16 18:25 Urine Urobilinogen 0.2 E.U./dL (<1 E.U./dL) 12/07/16 18:25 Ur Leukocyte Esterase Negative Abdi/uL (NEGATIVE) 12/07/16 18:25 Urine Opiates Screen Negative (NEGATIVE) 12/07/16 18:25 Urine Methadone Screen Negative (NEGATIVE) 12/07/16 18:25 Ur Barbiturates Screen Negative (NEGATIVE) 12/07/16 18:25 Ur Phencyclidine Scrn Negative (NEGATIVE) 12/07/16 18:25 Ur Amphetamines Screen Negative (NEGATIVE) 12/07/16 18:25 U Benzodiazepines Scrn Positive (NEGATIVE) H 12/07/16 18:25 U Oth Cocaine Metabols Negative (NEGATIVE) 12/07/16 18:25 U Cannabinoids Screen Negative (NEGATIVE) 12/07/16 18:25 Alcohol, Quantitative 275 mg/dL (0-10) H 12/07/16 01:45 Attending/Attestation - Attestation I have personally seen and examined this patient.: Yes I have fully participated in the care of the patient.: Yes I have reviewed all pertinent clinical information, including history, physical exam and plan: Yes Notes (Text): 12/08/16 16:40 Attending note; Patient seen and examined with resident. Patient is a 51-year-old male with a history of chronic alcohol abuse,chronic atrial fibrillation, noncompliance with medication is admitted with rapid A. fib and alcohol abuse. Patient was initially started on IV Cardizem. Currently heart rate is controlled with metoprolol and digoxin. Continue IV Ativan/Librium/multivitamin, thiamine, folic acid. Complete alcohol cessation is strongly advised. Noncompliance with follow-up. Patient does not follow up with any PMD now. Patient is strongly advised to continue medication and stop alcohol abuse. Wanted to sign AMA before and agreed to stay. later patient signed AMA.
--- NOTE | 2016-12-08 14:35 | PN ---
DATE: SUBJECTIVE: The patient is currently in atrial fibrillation. He is oriented. He wants to leave and he is to contact his health care attorney. PHYSICAL EXAMINATION: VITAL SIGNS: Blood pressure 150/101, heart rate 140, rapid atrial fibrillation monitor, temperature 98.2, respirations 20. HEENT: Head is normocephalic. CHEST: Clear. HEART: S1 and S2, regular. EXTREMITIES: Trace edema. LABORATORY DATA: Hemoglobin and hematocrit 11.1 and 33.6, white count 1.7, platelet count 102. Today's SMA-7 is within normal limits. ASSESSMENT: 1. Rapid atrial fibrillation. 2. Dilated cardiomyopathy. RECOMMENDATIONS: Continue current Cardizem at 60 mg q.i.d., folic acid 1 mg once a day, Lanoxin 0.25 mg once a day, Lopressor 50 mg twice a day, magnesium oxide 400 mg twice a day, Slow-Mag 1 tablet twice a day as the patient was hypomagnesemic. Case was discussed with the hospitalist. The patient may sign AMA if he insist to leave. Earle Patel MD
[2016-12-08] MEDS ORDERED: Magnesium Chloride 64 mg ER Tab PO SCH (18:00)
== END 2016-12-08 14:07 | disposition left against medical advice (07) ==
LOC: ED 00:47 → ERH 03:34 → 2RSO 13:50
PROVIDERS: ADMIT Internal Medicine; ATTEND Internal Medicine
DX: I48.0 Paroxysmal atrial fibrillation (principal); F10.229 Alcohol dependence with intoxication, unspecified; I42.0 Dilated cardiomyopathy; I11.0 Hypertensive heart disease with heart failure; I50.9 Heart failure, unspecified; I48.2 Chronic atrial fibrillation; E83.42 Hypomagnesemia; I49.5 Sick sinus syndrome; Z95.0 Presence of cardiac pacemaker; Y90.8 Blood alcohol level of 240 mg/100 ml or more; Z91.19 Patient's noncompliance with other medical treatment and regimen
CPT/HCPCS: 36415; 71010; 80053; 80320; 80324; 80345; 80346; 80349; 80353; 80358; 80361; 81003; 82550; 83615; 83735; 83880; 83992; 84100; 84484; 85025; 85027; 85610; 85730; 93005; 96374; 96375; 99284; G0378; J1160; J1644; J1885; J2060; J2405; J3411; J7040

== ENCOUNTER 2016-12-13 02:52 | Observation (INO) | payer MEDICAID ==
[2016-12-13 03:01] VITALS: BMI 28.6
--- NOTE | 2016-12-13 03:29 | ED PDOC ---
Arrival/HPI - General Chief Complaint: Palpitations Time Seen by Provider: 12/13/16 02:56 Historian: Patient - History of Present Illness Narrative History of Present Illness (Text): 12/13/16 03:28 Elvis Ybarra is a 51 year old male, whose past medical history includes tachy -viki syndrome s/p pacemaker placement, paroxysmmal atrial fibrillation, cardiomyopathy, hypertension, PUD, alcohol abuse, perforated ulcer/GI bleed, and gastric bypass, who presents to the ED complaining of palpitations tonight. Patient reports associated mid-sternal chest discomfort. Patient reports symptoms feel similar to previous episodes of atrial fibrillation. Patient notes he has been compliant with his Metoprolol and admits to drinking alcohol tonight. Patient denies any fever, chills, shortness of breath, nausea, vomiting , diarrhea, urinary symptoms, back pain, neck pain, headache, dizziness, or any other complaints. Time/Duration: Other (tonight) Symptom Onset: Gradual Symptom Course: Unchanged Activities at Onset: Light Context: Home Past Medical History - Provider Review Nursing Documentation Reviewed: Yes - Past History Past History: No Previous (hx of afib, svt) - Infectious Disease Hx of Infectious Diseases: None - Tetanus Immunization Tetanus Immunization: Unknown - Cardiac Hx Cardiac Disorders: Yes (Atrial fibrillation, SVT) Hx Angina: Yes Hx Cardiac Arrhythmia: Yes Hx Congestive Heart Failure: Yes Hx Hypertension: Yes Hx Pacemaker: Yes Hx Peripheral Edema: Yes - Pulmonary Hx Respiratory Disorders: Yes (shortness of breath) - Neurological HX Cerebrovascular Accident: No - HEENT Hx HEENT Disorder: Yes (eyeglasses) Other/Comment: 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 related noise exposure - Renal Hx Renal Failure: No - Endocrine/Metabolic Hx Diabetes Mellitus Type 1: No Hx Diabetes Mellitus Type 2: No Hx Hypothyroidism: No - Hematological/Oncological Hx Blood Disorders: Yes Hx Anemia: Yes Other/Comment: Thrombocytopneia, leukopneia - Integumentary Hx Dermatological Disorder: No Other/Comment: tatoos, bruise to left abd and rib area, left eye orbit eccymosis fell at home 10/18/16 - Musculoskeletal/Rheumatological Hx Back Pain: Yes Hx Falls: Yes Hx Fractures: Yes (Rib) Hx Unsteady Gait: Yes - Gastrointestinal Hx Diverticulitis: Yes Hx Liver Failure: Yes (Abnormal Liver function test) - Genitourinary/Gynecological Hx Genitourinary Disorders: No - Psychiatric Hx Anxiety: Yes Hx Depression: Yes Hx Substance Use: No Other/Comment: alcohol abuse and withdrawal/ delirium - Surgical History Hx Cardiac Catheterization: Yes - Anesthesia Hx Anesthesia: Yes Hx Anesthesia Reactions: No Hx Malignant Hyperthermia: No - Suicidal Assessment Feels Threatened In Home Enviroment: No Family/Social History - Physician Review Nursing Documentation Reviewed: Yes Family/Social History: Unknown Family HX Smoking Status: Never Smoked Hx Alcohol Use: Yes Amount per day: 6 Hx Substance Use: No Hx Substance Use Treatment: No Allergies/Home Meds Allergies/Adverse Reactions: Allergies No Known Allergies Allergy (Verified 11/01/16 11:46) Review of Systems - Physician Review All systems were reviewed & negative as marked: Yes - Review of Systems Constitutional: Normal. absent: Fevers Eyes: Normal ENT: Normal Respiratory: Normal. absent: SOB, Cough Cardiovascular: Chest Pain, Palpitations Gastrointestinal: Normal. absent: Abdominal Pain, Diarrhea, Nausea, Vomiting Genitourinary Male: Normal. absent: Dysuria, Frequency, Hematuria, Urinary Output Changes Musculoskeletal: Normal. absent: Back Pain, Neck Pain Skin: Normal. absent: Rash Neurological: Normal. absent: Headache, Dizziness Endocrine: Normal Hemo/Lymphatic: Normal Psychiatric: Normal Physical Exam Vital Signs Reviewed: Yes Vital Signs Temp Resp BP Pulse Ox 12/13/16 03:01 97.9 F 18 108/64 99 Temperature: Afebrile Blood Pressure: Normal Pulse: Regular Respiratory Rate: Normal Appearance: Positive for: Well-Appearing, Non-Toxic, Comfortable Pain Distress: None Mental Status: Positive for: Alert and Oriented X 3 - Systems Exam Head: Present: Atraumatic, Normocephalic Pupils: Present: PERRL Extroacular Muscles: Present: EOMI Conjunctiva: Present: Normal Mouth: Present: Moist Mucous Membranes Neck: Present: Normal Range of Motion Respiratory/Chest: Present: Clear to Auscultation, Good Air Exchange. No: Respiratory Distress, Accessory Muscle Use Cardiovascular: Present: Irregular Rhythm (Irregular regular). No: Murmurs Abdomen: Present: Normal Bowel Sounds. No: Tenderness, Distention, Peritoneal Signs Back: Present: Normal Inspection Upper Extremity: Present: Normal Inspection. No: Cyanosis, Edema Lower Extremity: Present: Normal Inspection. No: Edema Neurological: Present: GCS=15, CN II-XII Intact, Speech Normal Skin: Present: Warm, Dry, Normal Color. No: Rashes Psychiatric: Present: Alert, Oriented x 3, Normal Insight, Normal Concentration Medical Decision Making ED Course and Treatment: 12/13/16 03:29 Impression: 51 year old male complaining of palpitations and chest pressure tonight. Differential Diagnosis included but are not limited to: atrial fibrillation vs. chest pain vs. ACS Plan: -- EKG -- Chest X-ray -- Labs, cardiac enzymes -- Reassess and disposition Prior Visits: Notes and results from previous visits were reviewed. On 12/07/2016, pt was seen in the Emergency department for palpitations and chest pressure. Pt was admitted to the hospital for further evaluation. Progress Notes: Reviewed EKG, a fib at 83 bpm. Non-specific T wave changes. 12/13/16 04:50 Reviewed radiology, Chest X-ray shows no acute processes. 12/13/16 04:[address] Orellana, medical affairs manager dispute resolution analyst, who is aware and agrees with plan. 12/13/16 04:[address] Womack, who is aware and agrees with plan. Accepts pt in to hospitalist service. Pt will go to Telemetry observation and atrial fibrillation and chest pain. - Lab Interpretations Lab Results: 12/13/16 03:45 12/13/16 03:45 Lab Results 12/13/16 03:45: WBC 4.0 L D, RBC 4.03, Hgb 12.8 L, Hct 36.6 L, MCV 90.8, MCH 31.8, MCHC 35.0, RDW 13.5, Plt Count 176, MPV 9.3 12/13/16 03:45: PT 10.8, INR 1.00, APTT 30.8 12/13/16 03:45: Sodium 128 L, Potassium 4.4, Chloride 94 L, Carbon Dioxide 22, Anion Gap 16, BUN 7, Creatinine 0.5, Est GFR ( Amer) > 60, Est GFR (Non- Af Amer) > 60, Random Glucose 88, Calcium 8.8, Total Bilirubin 0.8, AST 90 H, ALT 47, Alkaline Phosphatase 106, Lactate Dehydrogenase 474, Total Creatine Kinase 39, Troponin I < 0.01, Total Protein 7.1, Albumin 3.9, Globulin 3.3, Albumin/Globulin Ratio 1.2 I have reviewed the lab results: Yes - RAD Interpretation Radiology Orders: 12/13/16 03:30 CHEST PORTABLE [RAD] Stat Java Architect: ED Physician - EKG Interpretation Interpreted by ED Physician: Yes Type: 12 lead EKG - Medication Orders Current Medication Orders: Discontinued Medications Morphine Sulfate (Morphine) 2 mg IVP STAT STA Stop: 12/13/16 03:33 Last Admin: 12/13/16 04:03 Dose: 2 mg MAR Pain Assessment Document 12/13/16 04:03 KINGS (Rec: 12/13/16 04:03 KINGS [id number]) Pain Reassessment Is this a pain reassessment? No IVP Administration Document 12/13/16 04:03 KINGS (Rec: 12/13/16 04:03 KINGS [id number]) Charges for Administration # of IVP Administrations 1 - Scribe Statement The provider has reviewed the documentation as recorded by the Tristonibafia Jensen Provider Scribe Attestation: All medical record entries made by the Scribe were at my direction and personally dictated by me. I have reviewed the chart and agree that the record accurately reflects my personal performance of the history, physical exam, medical decision making, and the department course for this patient. I have also personally directed, reviewed, and agree with the discharge instructions and disposition. Disposition/Present on Arrival - Present on Arrival Any Indicators Present on Arrival: No History of DVT/PE: No History of Uncontrolled Diabetes: No Urinary Catheter: No History of Decub. Ulcer: No History Surgical Site Infection Following: None - Disposition Have Diagnosis and Disposition been Completed?: Yes Diagnosis: Chest pain, Atrial fibrillation Disposition: HOSPITALIZED Disposition Time: 05:03 Patient Plan: Observation Condition: STABLE Discharge Instructions (ExitCare): Chest Pain (ED) Forms: [employer] ([place]ian)
[2016-12-13] MEDS ORDERED: Morphine 2 mg/ml ISec IVP STA (03:32)
[2016-12-13 04:07] LABS: HEMATOCRIT 36.6 % (42.0-52.0); MEAN CELL VOLUME 90.8 fl (80.0-105.0); MEAN CORPUSCULAR HEMOGLOBIN 31.8 pg (25.0-35.0); MEAN PLATELET VOLUME 9.3 fl (7.0-11.0); RED CELL DISTRIBUTION WIDTH 13.5 % (11.5-14.5)
[2016-12-13 04:18] LABS: PARTIAL THROMBOPLASTIN TIME 30.8 Seconds (23.7-30.8)
[2016-12-13 04:24] LABS: ALB/GLOB RATIO 1.2 (1.1-1.8); ALKALINE PHOSPHATASE 106 U/L (38-126); ALT/SGPT 47 U/L (7-56); AST/SGOT 90 U/L (17-59); BILIRUBIN,TOTAL 0.8 mg/dL (0.2-1.3); BLOOD UREA NITROGEN 7 mg/dL (7-21); CALCIUM 8.8 mg/dL (8.4-10.5); CARBON DIOXIDE 22 mmol/L (21-33); CHLORIDE 94 mmol/L (98-107); GFR AFRICAN-AMERICAN > 60; GLUCOSE,RANDOM 88 mg/dL (70-110); POTASSIUM 4.4 mmol/L (3.6-5.0); SODIUM 128 mmol/L (132-148); TOTAL PROTEIN 7.1 g/dL (5.8-8.3)
[2016-12-13 04:35] LABS: TROPONIN I < 0.01 ng/mL
[2016-12-13] MEDS ORDERED: Thiamine 100 mg/ml Inj IM STA (05:36)
--- NOTE | 2016-12-13 06:07 | CP.PCM.HP ---
<Darnell Mooney - Last Filed: 12/13/16 06:58> History of Present Illness - History of Present Illness History of Present Illness: Patient is a 51 year old male with a past medical history of paroxysmal AFib ( no AC), Tachy-Viki syndrome s/p pacemaker, HTN, cardiomyopathy, alcohol abuse, and PUD who presents to [facility] [place]13[place]16 with complaints of palpitations and chest pain which woke patient out of his sleep on 12/12/16. Patient states the night prior to waking up with palpitations and chest pain he was consumed about 12 beers while the day he had chest pain he consumed 30. He states he came in today because his atrial fibrillation episodes are not usually associated with chest discomfort was today was. He states the chest discomfort is located on the left side and radiates to his right arm. Patient also admits to tenderness in lower legs bilaterally. Patient denies n/v/d, shortness of breath, dizziness , weakness, headache. States he performed vagal maneuvers, including valsalva maneuver. PMD: Dr. Arellano PMH: paroxysmal AFib, Tachy-Viki syndrome s/p pacemaker, HTN, cardiomyopathy ( EF 31%), chronic alcoholism, and PUD PSH: Gastric bypass with multiple complications afterwards; peptic ulcer repair Family Hx: Father-Liver Cancer Social Hx: denies tobacco consumption; chronic alcohol abuse-drinks at least one 24-pack of [employer] L[employer] per day since his 20's; denies illicit drug use Allergies: NKDA Home Meds: Metoprolol 50mg PO bid (non compliant) Present on Admission - Present on Admission Any Indicators Present on Admission: No Review of Systems - Constitutional Constitutional: absent: Chills, Fever, Weakness - Cardiovascular Cardiovascular: Chest Pain, Irregular Heart Rhythm, Radiating Pain (left arm) - Respiratory Respiratory: absent: Cough, Wheezing - Gastrointestinal Gastrointestinal: absent: Abdominal Pain, Constipation, Diarrhea, Nausea, Vomiting - Genitourinary Genitourinary: absent: Change in Urinary Stream, Dysuria - Musculoskeletal Musculoskeletal: absent: Muscle Weakness, Myalgias - Neurological Neurological: absent: Dizziness, Numbness, Headaches - Psychiatric Psychiatric: absent: Abnormal Sleep Pattern, Anxiety, Confusion - Endocrine Endocrine: Fatigue Past Patient History - Infectious Disease Hx of Infectious Diseases: None - Tetanus Immunizations Tetanus Immunization: Unknown - Past Medical History & Family History Past Medical History?: Yes - Past Social History Smoking Status: Never Smoked - CARDIAC Hx Cardiac Disorders: Yes (Atrial fibrillation, SVT) Hx Angina: Yes Hx Cardia Arrhythmia: Yes Hx Congestive Heart Failure: Yes Hx Hypertension: Yes Hx Pacemaker: Yes Hx Peripheral Edema: Yes - PULMONARY Hx Respiratory Disorders: Yes (shortness of breath) - NEUROLOGICAL HX Cerebrovascular Accident: No - HEENT Hx HEENT Problems: Yes (eyeglasses) Other/Comment: 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 related noise exposure - RENAL Hx Renal Failure: No - ENDOCRINE/METABOLIC Hx Diabetes Mellitus Type 1: No Hx Diabetes Mellitus Type 2: No Hx Hypothyroidism: No - HEMATOLOGICAL/ONCOLOGICAL Hx Blood Disorders: Yes Hx Anemia: Yes Other/Comment: Thrombocytopneia, leukopneia - INTEGUMENTARY Hx Dermatological Problems: No Other/Comment: tatoos, bruise to left abd and rib area, left eye orbit eccymosis fell at home 10/18/16 - MUSCULOSKELETAL/RHEUMATOLOGICAL Hx Back Pain: Yes Hx Falls: Yes Hx Fractures: Yes (Rib) Hx Unsteady Gait: Yes - GASTROINTESTINAL Hx Diverticulitis: Yes Hx Liver Failure: Yes (Abnormal Liver function test) - GENITOURINARY/GYNECOLOGICAL Hx Genitourinary Disorders: No - PSYCHIATRIC Hx Anxiety: Yes Hx Depression: Yes Hx Substance Use: No Other/Comment: alcohol abuse and withdrawal/ delirium - SURGICAL HISTORY Hx Cardiac Catheterization: Yes - ANESTHESIA Hx Anesthesia: Yes Hx Anesthesia Reactions: No Hx Malignant Hyperthermia: No Meds Allergies/Adverse Reactions: Allergies Allergy/AdvReac Type Severity Reaction Status Date / Time No Known Allergies Allergy Verified 11/01/16 11:46 Physical Exam - Constitutional Appears: Non-toxic - Head Exam Head Exam: ATRAUMATIC, NORMAL INSPECTION, NORMOCEPHALIC - Eye Exam Eye Exam: EOMI - ENT Exam ENT Exam: Mucous Membranes Moist, Normal Exam - Neck Exam Neck exam: Positive for: Normal Inspection - Respiratory Exam Respiratory Exam: Clear to Auscultation Bilateral, NORMAL BREATHING PATTERN - Cardiovascular Exam Cardiovascular Exam: Irregular Rhythm, +S1, +S2 - GI/Abdominal Exam GI & Abdominal Exam: Normal Bowel Sounds, Soft. absent: Distended, Guarding - Neurological Exam Neurological exam: Alert, CN II-XII Intact, Oriented x3 - Psychiatric Exam Psychiatric exam: Normal Affect, Normal Mood - Skin Skin Exam: Normal Color, Warm Results - Vital Signs Recent Vital Signs: Last Vital Signs Temp 97.9 F 12/13/16 03:01 Pulse 96 H 12/13/16 05:59 Resp 19 12/13/16 05:59 BP 112/79 12/13/16 05:59 Pulse Ox 97 12/13/16 05:59 - Labs Result Diagrams: 12/13/16 03:45 12/13/16 03:45 Assessment & Plan - Assessment and Plan (Free Text) Plan: Assessment 51 year old male with pmh atrial fibrillation with complaints of palpitations and chest pain found to be in atrial fibrillation Plan ACS R/O - Cardiac enzymes - Lipitor 40 mg qD, nitroglycerin 0.4 mg SL, morphine 2 mg q4h, metoprolol 50 mg BID, aspirin 81 mg Atrial Fibrillation - Digoxin levels - Continue with Digoxin - Continue with Metoprolol Alcohol Withdrawal - Thiamine 100 mg IM - 1 mg Ativan - [facility] protocol - Seizure precuations - Aspiration precautions GI/DVT prophylaxis - Protonix 40 mg/Lovenox 40 mg <Catarino Womack MD - Last Filed: 12/13/16 07:56> Results - Vital Signs Recent Vital Signs: Last Vital Signs Temp 97.9 F 12/13/16 03:01 Pulse 112 H 12/13/16 06:37 Resp 20 12/13/16 06:37 BP 111/61 12/13/16 06:37 Pulse Ox 97 12/13/16 06:37 - Labs Result Diagrams: 12/13/16 03:45 12/13/16 03:45 Labs: Laboratory Results - last 24 hr 12/13/16 06:38 Urine Opiates Screen Positive H Urine Methadone Screen Negative Ur Barbiturates Screen Negative Ur Phencyclidine Scrn Negative Ur Amphetamines Screen Negative U Benzodiazepines Scrn Positive H U Oth Cocaine Metabols Negative U Cannabinoids Screen Negative Attending/Attestation - Attestation I have personally seen and examined this patient.: Yes I have fully participated in the care of the patient.: Yes I have reviewed all pertinent clinical information: Yes Notes (Text): -I agree with the above H&P completed by the resident physician with the following additions and/or changes: The patient is a 51 year old man with a history of paroxysmal atrial fibrillation (not on anticoagulation due to non-compliance), tachy-viki syndrome (s/p pacemaker), cardiomyopathy, HTN, PUD and chronic alcohol abuse, who is being admitted for observation to the telemetry andres for chest pain (r/o ACS). He reports having 1 day of intermittent palpitations and sub-sternal chest discomfort, unaffected by exertion or oral intake. EKG done in the ED did not show any acute ischemic findings. Of note, he reports drinking a "30-pack of beer" earlier in the day (prior to arriving to the ED). Serial EKG's and Trop 's as well as a urine drug screen, HgA1c, lipid panel and TSH have been ordered. Also, cardiology has been consulted. The patient's heart rate has been within normal range since his arrival to the ED. Seizure precautions and PRN IV Ativan will be ordered due to potential development of acute alcohol withdrawal symptoms.
[2016-12-13] MEDS ORDERED: Sodium Chloride 0.9% 1,000 ML IV SCH (06:30)
--- NOTE | 2016-12-13 08:45 | RAD ---
HISTORY: Chest pain COMPARISON: 12/07/2016. FINDINGS: LUNGS: The lungs are well inflated and clear. PLEURA: No significant pleural effusion identified, no pneumothorax apparent. CARDIOVASCULAR: Normal. OSSEOUS STRUCTURES: No significant abnormalities. VISUALIZED UPPER ABDOMEN: Normal. OTHER FINDINGS: None. IMPRESSION: No active pulmonary disease.
--- NOTE | 2016-12-13 09:37 | CARD ---
APPROVED REPORT EKG Measurement Heart [id number] <Conclusion> Atrial fibrillation Nonspecific T wave abnormality No change
[2016-12-13] MEDS ORDERED: Enoxaparin 40 mg Syringe SC SCH (10:00)
[2016-12-13] MEDS ORDERED: Multivitamin (MVI) 10 ML, Thiamine 100 MG, Folic Acid 1 MG in Sodium Chloride 0.9% 1,00... IV ONE (11:54)
[2016-12-13 12:39] VITALS: O2SAT 97
[2016-12-13] MEDS ORDERED: Digoxin 250 mcg (0.25 mg) Tab PO SCH (14:00)
[2016-12-13 14:07] VITALS: PULSE 91
[2016-12-13] MEDS ORDERED: Pneumococcal 23-Valent Vaccine IM ONE (15:05)
[2016-12-13 17:04] LABS: BASO # 0.01 K/mm3 (0.0-2.0); BASO % 0.3 % (0.0-3.0); EOS % 0.3 % (1.5-5.0); GRAN # 2.13 (1.4-6.5); GRAN % 60.6 % (50.0-68.0); HEMATOCRIT 39.5 % (42.0-52.0); LYMPH # 0.7 (1.2-3.4); LYMPH % 19.7 % (22.0-35.0); MEAN CELL VOLUME 92.3 fl (80.0-105.0); MEAN CORPUSCULAR HEMOGLOBIN 31.5 pg (25.0-35.0); MEAN CORPUSCULAR HGB CONC 34.2 g/dl (31.0-37.0); MEAN PLATELET VOLUME 9.7 fl (7.0-11.0); MONO # 0.7 (0.1-0.6); MONO % 19.1 % (1.0-6.0); RED CELL DISTRIBUTION WIDTH 13.9 % (11.5-14.5); WHITE BLOOD COUNT 3.5 10^3/ul (4.5-11.0)
[2016-12-13] MEDS: Morphine 2 mg/ml ISec IVP PRN ×2 (17:14→21:32)
[2016-12-13 17:26] LABS: TROPONIN I < 0.01 ng/mL
[2016-12-13 18:07] VITALS: RESP 18
--- NOTE | 2016-12-13 22:12 | CON ---
CARDIOLOGY CONSULTATION DATE: 12/13/2016 REASON FOR CONSULTATION: Alcoholic intoxication, toxic screen is positive for benzodiazepines and opiate. BRIEF CLINICAL HISTORY: This is a 51-year-old male with a past medical history significant for paroxysmal atrial fibrillation; tachybrady syndrome; sick sinus syndrome, status post pacemaker; alcohol-related cardiomyopathy; multiple admissions for alcoholic intoxication, who was drinking alcohol and stated that he was using the [employer] and developed palpitation and chest discomfort and came to the emergency room. Blood alcohol level was 289. Denies any chest pain now. Denies any shortness of breath. Denies any palpitation. PAST MEDICAL HISTORY: Past history is significant for paroxysmal atrial fibrillation; tachybrady syndrome; sick sinus syndrome, status post permanent pacemaker; cardiomyopathy; alcohol abuse; peptic ulcer disease; not on anticoagulation because of multiple episodes of severe alcoholic intoxication, high risk of fall. PAST SURGICAL HISTORY: Significant for gastric bypass, multiple complications, history of peptic ulcer disease and history of permanent pacemaker. CURRENT MEDICATIONS: The patient is supposed to take thiamine, multivitamin, metoprolol 50 b.i.d., Cardizem 240 mg, digoxin 0.25, not sure what he is taking. FAMILY HISTORY: Significant coronary artery disease, status post father for [place]. SOCIAL HISTORY: Active tobacco abuse, active alcohol abuse, multiple admissions with alcoholic intoxication. ALLERGIES: NO KNOWN DRUG ALLERGIES. PREVIOUS CARDIAC WORKUP: EKG shows atrial fibrillation, rate of 108. Patient had echocardiography in 05/2015 that showed ejection fraction 30% to 35%, 4 chamber dilatation, [id number] mitral regurgitation, vryhqaxp-qd-ftauwo tricuspid regurgitation, RV systolic pressure 56, moderately dilated RV, systolic function of RV moderately reduced. No history of LV or RV thrombus noted, status post permanent pacemaker, VVI single chamber on 04/20/2015, [employer] because of sick sinus syndrome and tachybrady syndrome, history of cardiac catheterization, which was done found to be normal. History of alcohol abuse and history of tobacco abuse. Repeat echo on 06/16/2015 as mentioned 4-chamber dilatation, [id number] mitral regurgitation, tricuspid regurgitation, RV systolic pressure 55. REVIEW OF SYSTEMS: As per HPI. PHYSICAL EXAMINATION: GENERAL: Height of the patient is 6 feet, weight of the patient 211 pounds, body mass index increased. VITAL SIGNS: Temperature afebrile. Heart rate 98, blood pressure 102/59. HEENT: PERRLA. Extraocular muscles intact. NECK: Supple. No carotid bruit. No thyromegaly. CHEST: Clear to auscultation. HEART: S1 and S2, regular. ABDOMEN: Soft. EXTREMITIES: Clubbing and cyanosis negative. LABORATORY DATA: EKG shows atrial fibrillation at the rate of 108. Blood workup as follows: WBC 4, hemoglobin 12.8, hematocrit 36.6, platelet count 176. Chemistry shows sodium 120, potassium 4.4, chloride 94, carbon dioxide 22, anion gap of 16, BUN 7, creatinine 0.5. Troponin is 0.01. Coagulation profile INR 1.0. Toxicology: Blood alcohol level 285 at 4 a.m. this morning and positive for opiates and positive for benzodiazepine. Digoxin level 0.5. IMPRESSION: Acute alcoholic toxication in a 51-year-old male with a past medical history significant for atrial fibrillation, multiple admissions with alcohol abuse, admitted with acute alcoholic intoxication, history of single-chamber pacemaker, VVI, last ejection fraction 30% to 35%, fdeodcrv-hc-bsewsn mitral regurgitation, [id number]-am-syebts tricuspid regurgitation, right ventricular systolic pressure of 56. Echo dated 05/2015, history of atrial fibrillation, tachybrady syndrome, alcohol-related cardiomyopathy, status post cardiac catheterization, nonobstructive coronary artery disease. RECOMMENDATIONS: We will start digoxin and continue metoprolol. Monitor electrolytes. We will follow him closely. Further recommendation depending on the hospital course. We will resume back the previous medications. The patient is very noncompliant and is not on anticoagulation for atrial fibrillation, because of noncompliance issue and all the risks with alcoholic intoxication. In the interim, continue metoprolol 50 mg b.i.d., continue Cardizem CD 240 mg as blood pressure tolerates and continue digoxin. We will follow with you. Thank you Dr. Garcia for providing me the opportunity in taking care of Elvis Ybarra. We will also put p.r.n. verapamil blood pressure low. Now, once the pressure is stabilized, we will restart Cardizem CD. We will follow with you. Tere Albrecht MD
[2016-12-14 03:11] VITALS: PULSE 73
[2016-12-14 03:12] VITALS: BP 140/93; TEMP 98.7
== END 2016-12-14 05:51 | disposition left against medical advice (07) ==
LOC: ED 02:52 → ERH 04:57 → 2RSO 17:40
PROVIDERS: ADMIT Internal Medicine; ATTEND Internal Medicine
DX: F10.229 Alcohol dependence with intoxication, unspecified (principal); I48.0 Paroxysmal atrial fibrillation; Z95.0 Presence of cardiac pacemaker; I08.1 Rheumatic disorders of both mitral and tricuspid valves; I42.6 Alcoholic cardiomyopathy; I25.10 Atherosclerotic heart disease of native coronary artery without angina pectoris; H83.3X1 Noise effects on right inner ear; I11.0 Hypertensive heart disease with heart failure; I50.9 Heart failure, unspecified; Z87.11 Personal history of peptic ulcer disease; Y90.8 Blood alcohol level of 240 mg/100 ml or more; Z91.81 History of falling; Z72.0 Tobacco use; Z80.0 Family history of malignant neoplasm of digestive organs; Z82.49 Family history of ischemic heart disease and other diseases of the circulatory system; Z91.19 Patient's noncompliance with other medical treatment and regimen; Z98.84 Bariatric surgery status; D64.9 Anemia, unspecified; Z87.81 Personal history of (healed) traumatic fracture; R26.81 Unsteadiness on feet; F41.9 Anxiety disorder, unspecified; F32.89 Other specified depressive episodes; R40.2412 Glasgow coma scale score 13-15, at arrival to emergency department
CPT/HCPCS: 71010; 80053; 80162; 80320; 80324; 80345; 80346; 80349; 80353; 80358; 80361; 82550; 83036; 83615; 83992; 84443; 84484; 85025; 85027; 85610; 85730; 93005; 96372; 96374; 96375; 96376; 99284; C9113; G0378; J1650; J2060; J2270; J2405; J3411; J7040

== ENCOUNTER 2017-02-05 12:28 | Inpatient (IN) | payer MEDICAID ==
[2017-02-05] MEDS ORDERED: Sodium Chloride 0.9% 1,000 ML IV STA (12:54)
[2017-02-05] MEDS ORDERED: Metoprolol 1 mg/ml Inj IVP STA (12:55)
--- NOTE | 2017-02-05 13:21 | ED PDOC ---
Arrival/HPI - General Chief Complaint: Palpitations Time Seen by Provider: 02/05/17 12:36 Historian: Patient - History of Present Illness Narrative History of Present Illness (Text): 02/05/17 13:20 A 51 year old male, whose past medical history includes paroxysmmal atrial fibrillation (50 mg metoprolol BID) noncompliant 2-3 days because ran out of medication, tachy-viki arrhythmia syndrome s/p pacemaker placement, hypertension, cardiomyopathy ef 31%, chronic alcoholism "on average 24-30 coors light daily", last drink was earlier today and was drinking last night while watching football, and peptic ulcer disease, presents to the emergency department complaining of palpitations and mild chest pressure while drinking alcohol and watching football. Patient states these symptoms are familiar to him as the onset of atrial fibrillation. Denies chest pain, nausea, vomiting, diaphoresis, dizziness or any other complaints at this time. Symptom Onset: Sudden Symptom Course: Unchanged Activities at Onset: Rest Context: Home Past Medical History - Provider Review Nursing Documentation Reviewed: Yes - Past History Past History: No Previous (hx of afib, svt) - Infectious Disease Hx of Infectious Diseases: None - Tetanus Immunization Tetanus Immunization: Unknown - Cardiac Hx Cardiac Disorders: Yes (Atrial fibrillation, SVT) Hx Angina: Yes Hx Cardiac Arrhythmia: Yes Hx Congestive Heart Failure: Yes Hx Hypertension: Yes Hx Pacemaker: Yes Hx Peripheral Edema: Yes - Pulmonary Hx Respiratory Disorders: Yes (shortness of breath) - Neurological Hx Neurological Disorder: No - HEENT Hx HEENT Disorder: Yes (eyeglasses) Other/Comment: 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 related noise exposure - Renal Hx Renal Disorder: No - Endocrine/Metabolic Hx Endocrine Disorders: No - Hematological/Oncological Hx Blood Disorders: Yes Hx Anemia: Yes Other/Comment: Thrombocytopneia, leukopneia - Integumentary Hx Dermatological Disorder: No Other/Comment: tatoos, bruise to left abd and rib area, left eye orbit eccymosis fell at home 10/18/16 - Musculoskeletal/Rheumatological Hx Musculoskeletal Disorders: Yes Hx Back Pain: Yes Hx Falls: Yes Hx Fractures: Yes (Rib) Hx Unsteady Gait: Yes - Gastrointestinal Hx Gastrointestinal Disorders: Yes Hx Diverticulitis: Yes Hx Liver Failure: Yes (Abnormal Liver function test) Hx Pancreatitis: Yes - Genitourinary/Gynecological Hx Genitourinary Disorders: No - Psychiatric Hx Anxiety: Yes Hx Depression: Yes Hx Substance Use: No Other/Comment: alcohol abuse and withdrawal/ delirium - Surgical History Hx Cardiac Catheterization: Yes Other/Comment: ulcer surgery x2 - Anesthesia Hx Anesthesia: Yes Hx Anesthesia Reactions: No Hx Malignant Hyperthermia: No - Suicidal Assessment Feels Threatened In Home Enviroment: No Family/Social History - Physician Review Nursing Documentation Reviewed: Yes Family/Social History: No Known Family HX Smoking Status: Never Smoked Hx Alcohol Use: Yes (DRINKS AT LEAST 1 24 PACK OF COORS LITE A DAY. LAST DRINK [id number]) Frequency of alcohol use: Daily Amount per day: 6 Hx Substance Use: No Hx Substance Use Treatment: No Allergies/Home Meds Allergies/Adverse Reactions: Allergies No Known Allergies Allergy (Verified 02/05/17 12:36) Review of Systems - Physician Review All systems were reviewed & negative as marked: Yes - Review of Systems Cardiovascular: Palpitations, Other (mild chest pressure). absent: Chest Pain Gastrointestinal: absent: Nausea, Vomiting Neurological: absent: Dizziness Endocrine: absent: Diaphoresis Physical Exam Vital Signs Reviewed: Yes Vital Signs Pulse Pulse Resp BP BP Pulse Ox 02/05/17 20:51 101 H 16 96/60 L 97 02/05/17 19:46 85 16 102/76 02/05/17 18:24 85 14 102/76 99 02/05/17 16:06 89 22 119/84 100 02/05/17 14:56 92 H 20 115/81 100 02/05/17 14:00 92 H 02/05/17 13:30 106 H 121/75 02/05/17 12:38 110 H 125/92 H Blood Pressure: Hypertensive Pulse: Tachycardic Appearance: Positive for: Well-Appearing, Non-Toxic, Comfortable, Other ( alcohol on breath) Pain Distress: None Mental Status: Positive for: Alert and Oriented X 3 - Systems Exam Head: Present: Atraumatic, Normocephalic Pupils: Present: PERRL Extroacular Muscles: Present: EOMI Conjunctiva: Present: Normal Mouth: Present: Moist Mucous Membranes Neck: Present: Normal Range of Motion Respiratory/Chest: Present: Clear to Auscultation, Good Air Exchange. No: Respiratory Distress, Accessory Muscle Use Cardiovascular: Present: Gallop (irregularly regular pulse). No: Murmurs Abdomen: Present: Normal Bowel Sounds. No: Tenderness, Distention, Peritoneal Signs Back: Present: Normal Inspection Upper Extremity: Present: Normal Inspection. No: Cyanosis, Edema Lower Extremity: Present: Normal Inspection. No: Edema Neurological: Present: GCS=15, CN II-XII Intact, Speech Normal Skin: Present: Warm, Dry, Normal Color. No: Rashes Psychiatric: Present: Alert, Oriented x 3, Normal Insight, Normal Concentration Medical Decision Making ED Course and Treatment: 02/05/17 13:18 Impression: A 51 year old male with palpitations and mild chest pressure. Plan: -- EKG -- chest xray -- labs -- Urinalysis -- Lopressor, IV fluids, Pepcid, Ecotrin -- Reassess and disposition Prior Visits: Notes and results from previous visits were reviewed. Patient last reported to the emergency department on 12/13/16 for evaluation of palpitations and associated mid-sternal chest discomfort. Progress Notes: EKG: Ordered, reviewed, and independently interpreted the EKG. Rate : 107 BPM Rhythm : a fib Interpretation : T wave inversion in 1,2 avl v2-v6; subtle elevated ST/T segments in avr and 3 Comparison : relative to ekg on 12/13/16, T wave inversion v3-v6 deeper and more down today, on 12/13/[address]/T segments and all others are flat - Lab Interpretations Lab Results: 02/05/17 13:16 02/05/17 13:16 Lab Results 02/05/17 15:40: PT 11.1, INR 1.02, APTT 35.5 02/05/17 14:50: Urine Opiates Screen Negative, Urine Methadone Screen Negative, Ur Barbiturates Screen Negative, Ur Phencyclidine Scrn Negative, Ur Amphetamines Screen Negative, U Benzodiazepines Scrn No result, U Oth Cocaine Metabols Negative, U Cannabinoids Screen Negative 02/05/17 14:50: Urine Color Yellow, Urine Appearance Clear, Urine pH 6.5, Ur Specific [place] <= 1.005, Urine Protein Negative, Urine Glucose (UA) Negative, Urine Ketones Negative, Urine Blood Negative, Urine Nitrate Negative, Urine Bilirubin Negative, Urine Urobilinogen 0.2, Ur Leukocyte Esterase Negative 02/05/17 13:16: Thyroxine (T4) 7.8, TSH 3rd Generation 2.54, Alcohol, Quantitative 198 H 02/05/17 13:16: Sodium 120 L, Potassium 3.0 L, Chloride 84 L, Carbon Dioxide 18 L, Anion Gap 22 H, BUN 4 L, Creatinine 0.5 L, Est GFR ( Amer) > 60, Est GFR (Non-Af Amer) > 60, Random Glucose 99, Calcium 9.6, Magnesium 1.8, Total Bilirubin 3.8 H, AST 346 H D, ALT 150 H, Alkaline Phosphatase 139 H D, Lactate Dehydrogenase 509, Total Creatine Kinase 42, Troponin I < 0.01, NT-Pro-B Natriuret Pep 581 H, Total Protein 9.0 H, Albumin 4.6, Globulin 4.4, Albumin/ Globulin Ratio 1.1 02/05/17 13:16: WBC 4.1 L, RBC 4.46, Hgb 14.4, Hct 38.4 L, MCV 86.1 D, MCH 32.3 , MCHC 37.5 H, RDW 15.0 H, Plt Count 66 L, MPV 10.9, Gran % 54.6, Lymph % (Auto ) 23.8, [place] % (Auto) 21.2 H, Eos % (Auto) 0.2 L, Baso % (Auto) 0.2, Gran # 2.24 , Lymph # 1.0 L, [place] # 0.9 H, Eos # 0.0, Baso # 0.01, Neutrophils % (Manual) 57 , Lymphocytes % (Manual) 27, Monocytes % (Manual) 16 H, Platelet Evaluation Low I have reviewed the lab results: Yes - RAD Interpretation Radiology Orders: 02/05/17 12:44 CHEST TWO VIEWS (PA/LAT) [RAD] Stat - EKG Interpretation Interpreted by ED Physician: Yes Type: 12 lead EKG - Medication Orders Current Medication Orders: Discontinued Medications Aspirin (Ecotrin) 162 mg PO STAT STA Stop: 02/05/17 13:03 Last Admin: 02/05/17 13:29 Dose: 162 mg Aspirin (Aspirin Chewable) 81 mg PO DAILY [facility] Last Admin: 02/07/17 09:56 Dose: 81 mg Chlordiazepoxide (Librium) 50 mg PO STAT STA PRN Reason: Protocol Stop: 02/05/17 15:33 Last Admin: 02/05/17 15:47 Dose: 50 mg Cyclobenzaprine HCl (Flexeril) 5 mg PO TID PRN PRN Reason: Muscle spasm Last Admin: 02/06/17 16:28 Dose: 5 mg Digoxin (Lanoxin) 0.125 mg PO 1400 ALLIE Last Admin: 02/07/17 13:10 Dose: Digoxin (Lanoxin) 0.25 mg IVP ONCE ONE Stop: 02/07/17 12:51 Last Admin: 02/07/17 13:09 Dose: 0.25 mg MAR Apical Pulse Rate Document 02/07/17 13:09 BK (Rec: 02/07/17 13:09 BK [id number]) Apical Pulse Rate Apical Pulse Rate (60-90 beats/min) 105 IVP Administration Document 02/07/17 13:09 BK (Rec: 02/07/17 13:09 BK [id number]) Charges for Administration # of IVP Administrations 1 Diltiazem HCl (Cardizem) 10 mg IVP STAT STA Stop: 02/06/17 10:12 Last Admin: 02/06/17 10:18 Dose: 10 mg IVP Administration Document 02/06/17 10:18 CRIM (Rec: 02/06/17 10:18 [email or web address]) Charges for Administration # of IVP Administrations 1 MAR Pulse and Blood Pressure Document 02/06/17 10:18 [facility] (Rec: 02/06/17 10:18 [email or web address]) Pulse Pulse Rate (60-90) 199 Famotidine (Pepcid) 40 mg PO STAT STA Stop: 02/05/17 13:03 Last Admin: 02/05/17 13:30 Dose: 40 mg Famotidine (Pepcid) 40 mg PO DAILY [facility] Last Admin: 02/07/17 09:56 Dose: 40 mg Folic Acid (Folic Acid) 1 mg PO DAILY [facility] Last Admin: 02/07/17 09:56 Dose: 1 mg Sodium Chloride (Sodium Chloride 0.9%) 1,000 mls @ 999 mls/hr IV .Q1H1M STA Stop: 02/05/17 13:54 Last Admin: 02/05/17 13:30 Dose: 999 mls/hr eMAR Start Stop Document 02/05/17 13:30 MR (Rec: 02/05/17 13:30 MR [id number]) Intravenous Solution Start Date 02/05/17 Start Time 13:30 End Date 02/05/17 End time 14:30 Total Infusion Time 60 Potassium Chloride (Potassium Chloride 20 Meq/100 Ml) 20 meq in 100 mls @ 50 mls/hr IVPB ONCE ONE Stop: 02/05/17 17:39 Last Admin: 02/05/17 16:02 Dose: 50 mls/hr eMAR Start Stop Document 02/05/17 16:02 MR (Rec: 02/05/17 16:03 MR [id number]) Intravenous Solution Start Date 02/05/17 Start Time 16:02 End Date 02/05/17 End time 18:02 Total Infusion Time 120 diltiaZEM IVPB 100mg in NS (Cardizem 100mg In Ns) 100 mls @ 5 mls/hr IV .Q20H PRN; Protocol; 5 MG/HR PRN Reason: TITRATE PER MD ORDER Stop: 02/07/17 13:30 Last Admin: 02/07/17 08:19 Dose: 5 mg/hr, 5 mls/hr eMAR Start Stop Document 02/07/17 08:19 BK (Rec: 02/07/17 08:20 BK [email or web address]) Intravenous Solution Start Date 02/07/17 Start Time 08:19 MAR Pulse and Blood Pressure Document 02/07/17 08:19 BK (Rec: 02/07/17 08:20 BK [email or web address]) Pulse Pulse Rate (60-90) 108 Blood Pressure Blood Pressure (100/60-150/90) 119/79 Titration Intervention Document 02/07/17 08:19 BK (Rec: 02/07/17 08:20 BK [email or web address]) Titration Intake Waste Amount 0 Container Volume 100 Titration Dosing Titration Dose 5 IV Rate 5 Intake/Decrease Started Dextrose (Dextrose 5% In Water 1000 Ml) 1,000 mls @ 100 mls/hr IV .Q10H [facility] Last Admin: 02/07/17 21:53 Dose: 100 mls/hr eMAR Start Stop Document 02/07/17 21:53 BK (Rec: 02/07/17 21:53 RAFAEL [id number]) Intravenous Solution Start Date 02/07/17 Start Time 21:53 diltiaZEM IVPB 100mg in NS (Cardizem 100mg In Ns) 100 mls @ 5 mls/hr IV .Q20H PRN; Protocol; 5 MG/HR PRN Reason: TITRATE PER MD ORDER Last Admin: 02/07/17 17:52 Dose: 5 mg/hr, 5 mls/hr eMAR Start Stop Document 02/07/17 17:52 RAFAEL (Rec: 02/07/17 17:55 BK [email or web address]) Intravenous Solution Start Date 02/07/17 Start Time 17:55 MAR Pulse and Blood Pressure Document 02/07/17 17:52 BK (Rec: 02/07/17 17:55 BK [email or web address]) Pulse Pulse Rate (60-90) 157 Blood Pressure Blood Pressure (100/60-150/90) 119/69 Titration Intervention Document 02/07/17 17:52 RAFAEL (Rec: 02/07/17 17:55 BK [email or web address]) Titration Intake Waste Amount 0 Container Volume 100 Titration Dosing Titration Dose 5 IV Rate 5 Intake/Decrease Started Ketorolac Tromethamine (Toradol) 30 mg IVP STAT STA Stop: 02/05/17 21:45 Last Admin: 02/05/17 21:54 Dose: 30 mg MAR Pain Assessment Document 02/05/17 21:54 PD (Rec: 02/05/17 21:54 PD [facility]) Pain Reassessment Is this a pain reassessment? No Presence of Pain Presence of Pain Yes Pain Scale Used Pain Scale Used Numeric IVP Administration Document 02/05/17 21:54 PD (Rec: 02/05/17 21:54 PD [facility]) Charges for Administration # of IVP Administrations 1 Lorazepam (Ativan) 1 mg IVP Q2 PRN; Protocol PRN Reason: Agitation Lorazepam (Ativan) 2 mg IVP Q4H PRN; Protocol PRN Reason: Agitation Last Admin: 02/06/17 10:10 Dose: 2 mg IVP Administration Document 02/06/17 10:10 [facility] (Rec: 02/06/17 10:11 [email or web address]) Charges for Administration # of IVP Administrations 1 Behavioural Document 02/06/17 10:10 [facility] (Rec: 02/06/17 10:11 [email or web address]) Maintenance Maintenance Dose Yes Re-Assess: Reassess Psych Meds Document 02/06/17 10:40 [facility] (Rec: 02/06/17 13:40 [id number]) Reassess Psych Med Effective Lorazepam (Ativan) 2 mg IVP Q4H ALLIE PRN Reason: Protocol Last Admin: 02/06/17 15:41 Dose: 2 mg IVP Administration Document 02/06/17 15:41 CRIM (Rec: 02/06/17 15:41 [facility]-[id number]) Charges for Administration # of IVP Administrations 1 Behavioural Document 02/06/17 15:41 [facility] (Rec: 02/06/17 15:41 [facility]-[id number]) Maintenance Maintenance Dose Yes Lorazepam (Ativan) 1 mg IVP Q4H ALLIE PRN Reason: Protocol Last Admin: 02/08/17 08:18 Dose: Lorazepam (Ativan) 2 mg IVP Q2 PRN; Protocol PRN Reason: Agitation Last Admin: 02/07/17 19:59 Dose: 2 mg IVP Administration Document 02/07/17 19:59 BK (Rec: 02/07/17 19:59 BK [id number]) Charges for Administration # of IVP Administrations 1 Behavioural Document 02/07/17 19:59 BK (Rec: 02/07/17 19:59 [id number]) Maintenance Maintenance Dose No Nonmedicinal Nonmedicinal Interventions Redirect Behavior Behavior for Medication: Anxiety Re-Assess: Reassess Psych Meds Document 02/07/17 20:29 BK (Rec: 02/08/17 02:39 BK [id number]) Reassess Psych Med Effective Metoprolol Tartrate (Lopressor) 2.5 mg IVP STAT STA Stop: 02/05/17 12:56 Last Admin: 02/05/17 14:00 Dose: MAR Pulse and Blood Pressure Document 02/05/17 14:00 MR (Rec: 02/05/17 15:24 MR [id number]) Pulse Pulse Rate (60-90) 92 Metoprolol Tartrate (Lopressor) 50 mg PO STAT STA Stop: 02/05/17 12:56 Last Admin: 02/05/17 13:30 Dose: 50 mg MAR Pulse and Blood Pressure Document 02/05/17 13:30 MR (Rec: 02/05/17 13:30 MR [id number]) Pulse Pulse Rate (60-90) 106 Blood Pressure Blood Pressure (100/60-150/90) 121/75 Metoprolol Tartrate (Lopressor) 25 mg PO Q12 [facility] Last Admin: 02/06/17 10:46 Dose: 25 mg MAR Pulse and Blood Pressure Document 02/06/17 10:46 CRIM (Rec: 02/06/17 10:46 [facility]-[id number]) Pulse Pulse Rate (60-90) 117 Metoprolol Tartrate (Lopressor) 25 mg PO STAT STA Stop: 02/06/17 16:08 Last Admin: 02/06/17 16:28 Dose: 25 mg MAR Pulse and Blood Pressure Document 02/06/17 16:28 CRIM (Rec: 02/06/17 16:28 [facility]-[id number]) Pulse Pulse Rate (60-90) 114 Metoprolol Tartrate (Lopressor) 50 mg PO Q12 [facility] Last Admin: 02/07/17 21:04 Dose: 50 mg MAR Pulse and Blood Pressure Document 02/07/17 21:04 BK (Rec: 02/07/17 21:04 BK [id number]) Pulse Pulse Rate (60-90) 93 Blood Pressure Blood Pressure (100/60-150/90) 116/77 Morphine Sulfate (Morphine) 2 mg IVP STAT STA Stop: 02/05/17 17:53 Last Admin: 02/05/17 18:44 Dose: 2 mg MAR Pain Assessment Document 02/05/17 18:44 MR (Rec: 02/05/17 18:44 MR [id number]) Pain Reassessment Is this a pain reassessment? Yes Sleep Is patient sleeping during reassessment? No Presence of Pain Presence of Pain Yes Pain Scale Used Pain Scale Used Numeric Description Description Constant Intensity of Pain at present 8 Pain Behavior Facial Grimacing Alleviating Factors/Management Medication Techniques Alleviating Factors Medication IVP Administration Document 02/05/17 18:44 MR (Rec: 02/05/17 18:44 MR [id number]) Charges for Administration # of IVP Administrations 1 Morphine Sulfate (Morphine) 1 mg IV ONCE ONE Stop: 02/06/17 06:16 Last Admin: 02/06/17 06:32 Dose: 1 mg eMAR Start Stop Document 02/06/17 06:32 PD (Rec: 02/06/17 06:33 PD [id number]) Intravenous Solution Start Date 02/06/17 Start Time 06:33 Multivitamins/Minerals (Therapeutic-M Tab) 1 tab PO 0800 [facility] Last Admin: 02/08/17 08:36 Dose: Nitroglycerin (Nitro-Bid 2% Oint) 1 ea TOP Q8H [facility] Last Admin: 02/08/17 02:39 Dose: Not Given Non-Admin Reason: Patient Refused Pantoprazole Sodium (Protonix Ec Tab) 40 mg PO DAILY [facility] Last Admin: 02/06/17 10:08 Dose: 40 mg Potassium Chloride (Potassium Chloride Oral Soln) 40 meq PO STAT STA Stop: 02/05/17 15:39 Last Admin: 02/05/17 16:03 Dose: 40 meq Potassium Chloride (Potassium Chloride Oral Soln) 40 meq PO STAT STA Stop: 02/05/17 18:27 Last Admin: 02/05/17 18:44 Dose: 40 meq Thiamine HCl (Vitamin B1 Tab) 100 mg PO DAILY [facility] Last Admin: 02/07/17 09:56 Dose: 100 mg Tramadol HCl (Ultram) 50 mg PO TID PRN PRN Reason: Pain, moderate (4-7) Last Admin: 02/07/17 15:13 Dose: 50 mg [facility] Pain Assessment Document 02/07/17 15:13 RAFAEL (Rec: 02/07/17 15:13 RAFAEL [id number]) Pain Reassessment Is this a pain reassessment? Yes Sleep Is patient sleeping during reassessment? No Presence of Pain Presence of Pain Yes Re-Assess: [facility] Pain Assessment Document 02/07/17 16:13 RAFAEL (Rec: 02/07/17 16:38 RAFAEL [id number]) Pain Reassessment Is this a pain reassessment? Yes Sleep Is patient sleeping during reassessment? No Presence of Pain Presence of Pain No - Scribe Statement The provider has reviewed the documentation as recorded by the Umer Jo Provider Scribe Attestation: All medical record entries made by the Scribafia were at my direction and personally dictated by me. I have reviewed the chart and agree that the record accurately reflects my personal performance of the history, physical exam, medical decision making, and the department course for this patient. I have also personally directed, reviewed, and agree with the discharge instructions and disposition. Disposition/Present on Arrival - Present on Arrival Any Indicators Present on Arrival: No History of DVT/PE: No History of Uncontrolled Diabetes: No Urinary Catheter: No History of Decub. Ulcer: No History Surgical Site Infection Following: None - Disposition Have Diagnosis and Disposition been Completed?: Yes Diagnosis: Atrial fibrillation, Acute coronary syndrome Disposition: HOSPITALIZED Disposition Time: 21:25 Patient Plan: Admission Condition: GOOD
[2017-02-05 14:23] LABS: ALKALINE PHOSPHATASE 139 U/L (38-126); ALT/SGPT 150 U/L (7-56); AST/SGOT 346 U/L (17-59); BILIRUBIN,TOTAL 3.8 mg/dL (0.2-1.3); BLOOD UREA NITROGEN 4 mg/dL (7-21); CALCIUM 9.6 mg/dL (8.4-10.5); CARBON DIOXIDE 18 mmol/L (21-33); CHLORIDE 84 mmol/L (98-107); GFR AFRICAN-AMERICAN > 60; GLUCOSE,RANDOM 99 mg/dL (70-110); MAGNESIUM 1.8 mg/dL (1.7-2.2); SODIUM 120 mmol/L (132-148)
[2017-02-05 14:24] LABS: ALB/GLOB RATIO 1.1 (1.1-1.8)
[2017-02-05 14:35] LABS: BASO # 0.01 K/mm3 (0.0-2.0); BASO % 0.2 % (0.0-3.0); EOS % 0.2 % (1.5-5.0); GRAN # 2.24 (1.4-6.5); GRAN % 54.6 % (50.0-68.0); HEMATOCRIT 38.4 % (42.0-52.0); LYMPH % 23.8 % (22.0-35.0); MEAN CELL VOLUME 86.1 fl (80.0-105.0); MEAN CORPUSCULAR HEMOGLOBIN 32.3 pg (25.0-35.0); MEAN CORPUSCULAR HGB CONC 37.5 g/dl (31.0-37.0); MEAN PLATELET VOLUME 10.9 fl (7.0-11.0); MONO # 0.9 (0.1-0.6); MONO % 21.2 % (1.0-6.0); TROPONIN I < 0.01 ng/mL; WHITE BLOOD COUNT 4.1 10^3/ul (4.5-11.0)
[2017-02-05 14:36] LABS: PLATELET COUNT 66 10^3/uL (120.0-450.0)
[2017-02-05 14:45] LABS: NEUTROPHIL 57 % (50.0-70.0); PLATELET ESTIMATE LOW (NORMAL)
--- NOTE | 2017-02-05 14:49 | CARD ---
APPROVED REPORT EKG Measurement Heart [id number] <Conclusion> Atrial fibrillation with rapid ventricular response PVCs vs aberrancy vs artifacts Inferior-posterior infarct, age undetermined ST & T wave abnormality, consider lateral ischemia or digitalis effect Abnormal ECG
[2017-02-05 14:55] LABS: T4 7.8 ug/dL (5.5-11.0)
--- NOTE | 2017-02-05 14:58 | RAD ---
APPROVED REPORT EKG Measurement Heart [id number] <Conclusion> Atrial fibrillation with rapid ventricular response ST & T wave abnormality, consider inferior ischemia or digitalis effect ST & T wave abnormality, consider anterolateral ischemia or digitalis effect Abnormal ECG
[2017-02-05 15:08] LABS: THYROID STIMULATING HORMONE 2.54 mIU/mL (0.46-4.68)
[2017-02-05] MEDS ORDERED: Potassium Chloride 40 mEq/30 ml LIQ UD PO STA ×2 (15:38→18:26)
[2017-02-05 15:47] LABS: PH,URINE 6.5 (4.7-8.0); URINE BILIRUBIN NEGATIVE (NEGATIVE); URINE BLOOD NEGATIVE (NEGATIVE); URINE GLUCOSE (UA) NEGATIVE (NEGATIVE); URINE KETONE NEGATIVE (NEGATIVE); URINE LEUKOCYTE ESTERASE NEGATIVE Leu/uL (NEGATIVE); URINE PROTEIN NEGATIVE mg/dL (<30 mg/dL); URINE UROBILINOGEN 0.2 E.U./dL (<1 E.U./dL)
[2017-02-05 15:49] LABS: URINE APPEARANCE CLEAR (CLEAR); URINE COLOR YELLOW (YELLOW)
[2017-02-05 16:09] LABS: INR 1.02 (0.93-1.08); PARTIAL THROMBOPLASTIN TIME 35.5 Seconds (25.1-36.5)
[2017-02-05] MEDS ORDERED: Morphine 2 mg/ml ISec IVP STA (17:52)
--- NOTE | 2017-02-05 18:15 | CP.PCM.CON ---
<Jose Madsen - Last Filed: 02/05/17 18:22> History of Present Illness - History of Present Illness History of Present Illness: Jose Madsen D.O. PGY-2, Critical Care Consultation 50 year old male with a PMH of tachy-viki syndrome s/p pacemaker placement, paroxysmal atrial fibrillation, sciatica, HTN, PUD, chronic EtOH abuse who presents to [facility] with complaints of chest pressure and fast heart rate for 1 day. Patient states that he has been unable to get an appointment with his PMD since his office moved to [place] recently and so he ran out of his metoprolol now for 2 days. Patient states that he started to get a racing heartbeat, palpitations, and chest pressure so he decided to come in. Patient describe pain as a pressure over the left sternum, non-radiating, not associated with N/V /diaphoresis/ESTEBAN or other symptoms, 4-6/10 in severity, which has improved since he came to the ER and received medications. Patient denies any recent travel or sick contacts. Patient admits that he is still drinking 24-30 [employer] [employer] beers every single day. Review of Systems - Constitutional Constitutional: absent: Anorexia, Chills - EENT Eyes: absent: Blind Spots, Blurred Vision Ears: absent: Decreased Hearing, Ear Discharge Nose/Mouth/Throat: absent: Epistaxis, Nasal Congestion - Cardiovascular Cardiovascular: Chest Pain. absent: Diaphoresis, Dyspnea, Edema - Respiratory Respiratory: absent: Cough, Hemoptysis - Gastrointestinal Gastrointestinal: absent: Abdominal Pain, Nausea, Vomiting - Genitourinary Genitourinary: absent: Dysuria, Hematuria - Musculoskeletal Musculoskeletal: Back Pain (low back, chronic). absent: Arthralgias, Numbness - Integumentary Integumentary: absent: Pruritus, Rash - Neurological Neurological: absent: Numbness, Focal Weakness Past Patient History - Infectious Disease Hx of Infectious Diseases: None - Tetanus Immunizations Tetanus Immunization: Unknown - Past Medical History & Family History Past Medical History?: Yes - Past Social History Smoking Status: Never Smoked - CARDIAC Hx Cardiac Disorders: Yes (Atrial fibrillation, SVT) Hx Angina: Yes Hx Cardia Arrhythmia: Yes Hx Congestive Heart Failure: Yes Hx Hypertension: Yes Hx Pacemaker: Yes Hx Peripheral Edema: Yes - PULMONARY Hx Respiratory Disorders: Yes (shortness of breath) - NEUROLOGICAL Hx Neurological Disorder: No - HEENT Hx HEENT Problems: Yes (eyeglasses) Other/Comment: 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 related noise exposure - RENAL Hx Chronic Kidney Disease: No - ENDOCRINE/METABOLIC Hx Endocrine Disorders: No - HEMATOLOGICAL/ONCOLOGICAL Hx Blood Disorders: Yes Hx Anemia: Yes Other/Comment: Thrombocytopneia, leukopneia - INTEGUMENTARY Hx Dermatological Problems: No Other/Comment: tatoos, bruise to left abd and rib area, left eye orbit eccymosis fell at home 10/18/16 - MUSCULOSKELETAL/RHEUMATOLOGICAL Hx Musculoskeletal Disorders: Yes Hx Back Pain: Yes Hx Falls: Yes Hx Fractures: Yes (Rib) Hx Unsteady Gait: Yes - GASTROINTESTINAL Hx Gastrointestinal Disorders: Yes Hx Diverticulitis: Yes Hx Liver Failure: Yes (Abnormal Liver function test) Hx Pancreatitis: Yes - GENITOURINARY/GYNECOLOGICAL Hx Genitourinary Disorders: No - PSYCHIATRIC Hx Anxiety: Yes Hx Depression: Yes Hx Substance Use: No Other/Comment: alcohol abuse and withdrawal/ delirium - SURGICAL HISTORY Hx Cardiac Catheterization: Yes Other/Comment: ulcer surgery x2 - ANESTHESIA Hx Anesthesia: Yes Hx Anesthesia Reactions: No Hx Malignant Hyperthermia: No Meds Allergies/Adverse Reactions: Allergies Allergy/AdvReac Type Severity Reaction Status Date / Time No Known Allergies Allergy Verified 02/05/17 12:36 - Medications Medications: Current Medications Aspirin (Aspirin Chewable) 81 mg PO DAILY [facility] Metoprolol Tartrate (Lopressor) 25 mg PO Q12 [facility] Nitroglycerin (Nitro-Bid 2% Oint) 1 ea TOP Q8H [facility] Pantoprazole Sodium (Protonix Ec Tab) 40 mg PO DAILY [facility] Physical Exam - Constitutional Appears: Non-toxic, No Acute Distress - Head Exam Head Exam: ATRAUMATIC, NORMOCEPHALIC - Eye Exam Eye Exam: EOMI, PERRL. absent: Scleral icterus - ENT Exam ENT Exam: Mucous Membranes Moist, Normal Oropharynx - Neck Exam Neck exam: Positive for: Normal Inspection. Negative for: Tenderness - Respiratory Exam Respiratory Exam: Clear to Auscultation Bilateral. absent: Rales, Rhonchi, Wheezes - Cardiovascular Exam Cardiovascular Exam: Irregular Rhythm, +S1, +S2. absent: Bradycardia, Tachycardia, Gallop, Rubs, Systolic Murmur - GI/Abdominal Exam GI & Abdominal Exam: Normal Bowel Sounds, Soft, Tenderness (periumbilical). absent: Distended - Extremities Exam Extremities exam: Positive for: normal capillary refill. Negative for: calf tenderness, pedal edema - Back Exam Back exam: absent: CVA tenderness (L), CVA tenderness (R), paraspinal tenderness - Neurological Exam Neurological exam: Alert, CN II-XII Intact, Oriented x3 - Skin Skin Exam: Dry, Warm Results - Vital Signs Recent Vital Signs: Last Vital Signs Temp Pulse 89 02/05/17 16:06 Resp 22 02/05/17 16:06 BP 119/84 02/05/17 16:06 Pulse Ox 100 02/05/17 16:06 - Labs Result Diagrams: 02/05/17 13:16 02/05/17 13:16 Assessment & Plan - Assessment and Plan (Free Text) Assessment: 50 year old male with a PMH of tachy-viki syndrome s/p pacemaker placement, paroxysmal atrial fibrillation, sciatica, HTN, PUD, chronic EtOH abuse who presents to [facility] with complaints of chest pressure and fast heart rate for 1 day Plan: Neurological AAOx4, protecting airway, nonfocal Alcohol elevated, Hx alcohol abuse, no librium given transaminitis, will start PRN ativan Seizure precautions CIWA Continue to monitor Cardiovascular Hx a-fib, tachy-sakshi syndrome s/p pacemaker Presenting with chest pressure, first troponins negative but new EKG ST depressions noted over V3 and V4 Cardio Dr. Collins consulted, discussed case with him, no plavix/lovenox/heparin at this time Continue to trend troponins Continue ASA Started nitrobid Continue home metoprolol Pulmnologic Protecting airway No acute issues Maintain O2Sat >92% GI Heart healthy diet Transaminitis likely 2/2 alcohol abuse Will f/u CMP Started GI ppx Heme Hgb stable No active bleeding HD stable Thrombocytopenia and leukopenia chronic issues likely 2/2 chronic alcohol abuse Will continue to monitor with CBC Nephro/Electrolytes Hyponatremia with hyponatremia likely 2/2 large amounts of beer consumption 40 mEq KCl given in ER, will give another 40 now Will fluid restrict 1500ml Repeat CMP in the AM GI/DVT ppx: protonix/SCDs Patient was seen and examined and case was discussed at length with attending physician. - Date & Time Date: 02/05/17 Time: 17:45 <Inocente Velasco - Last Filed: 02/09/17 17:28> Results - Vital Signs Recent Vital Signs: Last Vital Signs Temp 98.6 F 02/08/17 08:00 Pulse 128 H 02/08/17 08:22 Resp 13 02/08/17 08:22 BP 115/78 02/08/17 08:00 Pulse Ox 100 02/08/17 08:00 - Labs Result Diagrams: 02/08/17 05:30 02/08/17 05:30 Attending/Attestation - Attestation I have personally seen and examined this patient.: Yes I have fully participated in the care of the patient.: Yes I have reviewed all pertinent clinical information: Yes Notes (Text): 02/09/17 17:27 51 yo with chronic alcohol abuse and tachy viki syndrome s/p PM cane with ACS. plavix and TAC withheld as patient has trombocytopenia, but BB, and aspirin are initiated. hemodynamically stable, alert and awake and protecting airways. cardiology consult is appreocated ccm time 40 min
[2017-02-05] MEDS: Nitroglycerin 2% Ointment Foilpak UD TOP SCH (18:44)
[2017-02-05 19:52] VITALS: BMI 33.9
[2017-02-06] MEDS: Nitroglycerin 2% Ointment Foilpak UD TOP SCH ×3 (02:15→18:40)
[2017-02-06] MEDS ORDERED: Morphine 2 mg/ml ISec IVP STA (06:03)
[2017-02-06] MEDS ORDERED: Morphine 4 mg/ml ISec IVP STA (06:12)
[2017-02-06] MEDS ORDERED: Morphine 5 MG/ML SYRINGE IV ONE (06:15)
[2017-02-06 07:01] LABS: BASO # 0.01 K/mm3 (0.0-2.0); BASO % 0.4 % (0.0-3.0); EOS % 0.4 % (1.5-5.0); GRAN # 1.44 (1.4-6.5); GRAN % 52.3 % (50.0-68.0); HEMATOCRIT 38.7 % (42.0-52.0); LYMPH # 0.6 (1.2-3.4); LYMPH % 21.8 % (22.0-35.0); MEAN CELL VOLUME 90.2 fl (80.0-105.0); MEAN CORPUSCULAR HEMOGLOBIN 31.7 pg (25.0-35.0); MEAN CORPUSCULAR HGB CONC 35.1 g/dl (31.0-37.0); MEAN PLATELET VOLUME 10.9 fl (7.0-11.0); MONO # 0.7 (0.1-0.6); MONO % 25.1 % (1.0-6.0); RED CELL DISTRIBUTION WIDTH 15.6 % (11.5-14.5)
[2017-02-06 07:30] LABS: INR 1.04 (0.93-1.08); PARTIAL THROMBOPLASTIN TIME 31.4 Seconds (25.1-36.5)
[2017-02-06 07:45] LABS: WHITE BLOOD COUNT 2.8 10^3/ul (4.5-11.0)
[2017-02-06 08:15] LABS: ALKALINE PHOSPHATASE 112 U/L (38-126); ALT/SGPT 132 U/L (7-56); AST/SGOT 265 U/L (17-59); BILIRUBIN,TOTAL 4.8 mg/dL (0.2-1.3); BLOOD UREA NITROGEN 8 mg/dL (7-21); CALCIUM 9.4 mg/dL (8.4-10.5); CARBON DIOXIDE 20 mmol/L (21-33); CHLORIDE 98 mmol/L (98-107); GFR AFRICAN-AMERICAN > 60; GLUCOSE,RANDOM 85 mg/dL (70-110); POTASSIUM 4.2 mmol/L (3.6-5.0); SODIUM 131 mmol/L (132-148); TOTAL PROTEIN 8.1 g/dL (5.8-8.3)
[2017-02-06] MEDS ORDERED: Pantoprazole 40 mg EC Tab PO SCH (10:00)
[2017-02-06] MEDS ORDERED: diltiaZEM IVPB 100mg in NS 100 ML IV PRN (10:20)
--- NOTE | 2017-02-06 11:42 | CP.PCM.PN ---
<Shamar Millan - Last Filed: 02/06/17 12:02> Subjective - Date & Time of Evaluation Date of Evaluation: 02/06/17 Time of Evaluation: 11:39 - Subjective Subjective: ICU Progress note - Danie Millan PGY2 Patient seen and examined at bedside this morning. This morning patient's heart rate was noted to be in the 180-200's. He was given Cardizem 10mg IVP as well as metoprolol 25mg PO. Case discussed with cardiology, Dr. Patel and recommended starting digoxin 0.125mg daily. Presently, HR in the 90's and will continue to be closely monitored. He denied chest pain, palpitations, SOB. Objective - Vital Signs/Intake and Output Vital Signs (last 24 hours): Temp Pulse Resp BP Pulse Ox 98.8 F 104 H 18 85/52 L 96 02/06/17 04:00 02/06/17 11:00 02/06/17 11:00 02/06/17 11:00 02/06/17 11:00 Intake and Output: 02/06/17 02/06/17 06:59 18:59 Intake Total 0 Output Total 700 Balance -700 - Medications Medications: Current Medications Aspirin (Aspirin Chewable) 81 mg PO DAILY [facility] Last Admin: 02/06/17 10:08 Dose: 81 mg Digoxin (Lanoxin) 0.125 mg PO 1400 [facility] diltiaZEM IVPB 100mg in NS (Cardizem 100mg In Ns) 100 mls @ 5 mls/hr IV .Q20H PRN; Protocol; 5 MG/HR PRN Reason: TITRATE PER MD ORDER Lorazepam (Ativan) 1 mg IVP Q2 PRN; Protocol PRN Reason: Agitation Lorazepam (Ativan) 2 mg IVP Q4H PRN; Protocol PRN Reason: Agitation Last Admin: 02/06/17 10:10 Dose: 2 mg Metoprolol Tartrate (Lopressor) 25 mg PO Q12 [facility] Last Admin: 02/06/17 10:46 Dose: 25 mg Nitroglycerin (Nitro-Bid 2% Oint) 1 ea TOP Q8H [facility] Last Admin: 02/06/17 10:08 Dose: 1 ea Pantoprazole Sodium (Protonix Ec Tab) 40 mg PO DAILY [facility] Last Admin: 02/06/17 10:08 Dose: 40 mg - Labs Labs: 02/06/17 06:30 02/06/17 06:30 PT 11.4 SECONDS (9.4-12.5) 02/06/17 06:30 INR 1.04 (0.93-1.08) 02/06/17 06:30 APTT 31.4 Seconds (25.1-36.5) 02/06/17 06:30 - Constitutional Appears: No Acute Distress - Head Exam Head Exam: ATRAUMATIC, NORMOCEPHALIC - Eye Exam Eye Exam: EOMI, PERRL - ENT Exam ENT Exam: Mucous Membranes Moist - Neck Exam Neck Exam: Normal Inspection - Respiratory Exam Respiratory Exam: Clear to Ausculation Bilateral. absent: Rales, Rhonchi, Wheezes - Cardiovascular Exam Cardiovascular Exam: Tachycardia, Irregular Rhythm, +S1, +S2. absent: Gallop, Rubs - GI/Abdominal Exam GI & Abdominal Exam: Soft. absent: Distended, Firm, Guarding, Rigid, Tenderness , Rebound - Neurological Exam Neurological Exam: Alert, Awake, CN II-XII Intact, Oriented x3 - Psychiatric Exam Psychiatric exam: Normal Affect, Normal Mood - Skin Skin Exam: Dry, Intact, Normal Color, Warm Assessment and Plan - Assessment and Plan (Free Text) Plan: 50yo male with history of tachy-viki syndrome s/p pacemaker placement, paroxysmal atrial fibrillation, sciatica, hypertension, PUD and chronic alcohol abuse presents c/o chest pain and atrial fibrillation with RVR Neuro: -awake, alert, oriented x3; answering questions appropriately -[facility] protocol -Seizure precautions -Ativan PRN for alcohol withdrawal -Thiamine/folate/multivitamin Cardio: -HR noted to be in the 180-200's this morning; patient given cardizem 10mg IVP and metoprolol 25mg PO; HR currently in the 90's will continue to monitor -EKG reviewed -Troponin negative x3 -Continue ASA 81mg po daily and Metoprolol 25mg PO BID -Started on nitrobid -Discussed case with cardiology (Dr. Patel) - recommended starting patient on digoxin 0.125mg PO daily Pulm: -Protecting airway -Maintain O2Sat >92% GI: -Heart healthy diet -Transaminitis likely 2/2 alcohol abuse -GI prophylaxis with pepcid Heme: -No overt bleeding; H/H stable -Thrombocytopenia and leukopenia likely chronic secondary to alcohol abuse -DVT prophylaxis with SCD's -Protonix changed to pepcid due to thrombocytopenia Nephro: -Hyponatremia likely secondary to beer potomania -Patient started on D5W @ 100cc/hr to prevent rapid correction of sodium Patient seen and case discussed/reviewed with attending, Dr. Camilo <Enrique Camilo - Last Filed: 02/06/17 13:17> Objective - Vital Signs/Intake and Output Vital Signs (last 24 hours): Temp Pulse Resp BP Pulse Ox 98.8 F 104 H 18 85/52 L 96 02/06/17 04:00 02/06/17 11:00 02/06/17 11:00 02/06/17 11:00 02/06/17 11:00 Intake and Output: 02/06/17 02/06/17 06:59 18:59 Intake Total 0 Output Total 700 Balance -700 - Medications Medications: Current Medications Aspirin (Aspirin Chewable) 81 mg PO DAILY [facility] Last Admin: 02/06/17 10:08 Dose: 81 mg Digoxin (Lanoxin) 0.125 mg PO 1400 [facility] Famotidine (Pepcid) 40 mg PO DAILY [facility] Folic Acid (Folic Acid) 1 mg PO DAILY [facility] diltiaZEM IVPB 100mg in NS (Cardizem 100mg In Ns) 100 mls @ 5 mls/hr IV .Q20H PRN; Protocol; 5 MG/HR PRN Reason: TITRATE PER MD ORDER Dextrose (Dextrose 5% In Water 1000 Ml) 1,000 mls @ 100 mls/hr IV .Q10H [facility] Last Admin: 02/06/17 12:32 Dose: 100 mls/hr Lorazepam (Ativan) 1 mg IVP Q2 PRN; Protocol PRN Reason: Agitation Lorazepam (Ativan) 2 mg IVP Q4H PRN; Protocol PRN Reason: Agitation Last Admin: 02/06/17 10:10 Dose: 2 mg Metoprolol Tartrate (Lopressor) 25 mg PO Q12 [facility] Last Admin: 02/06/17 10:46 Dose: 25 mg Multivitamins/Minerals (Therapeutic-M Tab) 1 tab PO 0800 [facility] Nitroglycerin (Nitro-Bid 2% Oint) 1 ea TOP Q8H [facility] Last Admin: 02/06/17 10:08 Dose: 1 ea Thiamine HCl (Vitamin B1 Tab) 100 mg PO DAILY [facility] - Labs Labs: 02/06/17 06:30 02/06/17 06:30 PT 11.4 SECONDS (9.4-12.5) 02/06/17 06:30 INR 1.04 (0.93-1.08) 02/06/17 06:30 APTT 31.4 Seconds (25.1-36.5) 02/06/17 06:30 Assessment and Plan - Assessment and Plan (Free Text) Plan: Patient seen and examined on rounds with resident, agree with note with following additions/exceptions: Patient is 50yo male with PMhx of tachy-viki syndrome, s/p PPM, PAF not on A/C , EtOH abuse a/w CP, and Afib with RVR Currently awake, Alert, NAD, comfortable HR 90s, Afib, denies cp, sob, palpitaitons, ESTEBAN, dizziness. Cont with supp o2 as needed, rate control with Digoxin and Loressor as per cardiology, Nitrobid, ASA. Rapid increase in Sodium 120-->131, would tart D5W. Monitor for EtOH withrawal. Monitor LFts. GI ppx, DVT ppx. Currently stable. critical care time 35 minutes.
--- NOTE | 2017-02-06 13:37 | CP.PCM.PN ---
Subjective - Date & Time of Evaluation Date of Evaluation: 02/06/17 Time of Evaluation: 09:30 Objective - Vital Signs/Intake and Output Vital Signs (last 24 hours): Temp Pulse Resp BP Pulse Ox 98.8 F 104 H 18 85/52 L 96 02/06/17 04:00 02/06/17 11:00 02/06/17 11:00 02/06/17 11:00 02/06/17 11:00 Intake and Output: 02/06/17 02/06/17 06:59 18:59 Intake Total 0 Output Total 700 Balance -700 - Medications Medications: Current Medications Aspirin (Aspirin Chewable) 81 mg PO DAILY [facility] Last Admin: 02/06/17 10:08 Dose: 81 mg Digoxin (Lanoxin) 0.125 mg PO 1400 [facility] Famotidine (Pepcid) 40 mg PO DAILY [facility] Folic Acid (Folic Acid) 1 mg PO DAILY [facility] diltiaZEM IVPB 100mg in NS (Cardizem 100mg In Ns) 100 mls @ 5 mls/hr IV .Q20H PRN; Protocol; 5 MG/HR PRN Reason: TITRATE PER MD ORDER Dextrose (Dextrose 5% In Water 1000 Ml) 1,000 mls @ 100 mls/hr IV .Q10H [facility] Last Admin: 02/06/17 12:32 Dose: 100 mls/hr Lorazepam (Ativan) 1 mg IVP Q2 PRN; Protocol PRN Reason: Agitation Lorazepam (Ativan) 2 mg IVP Q4H PRN; Protocol PRN Reason: Agitation Last Admin: 02/06/17 10:10 Dose: 2 mg Metoprolol Tartrate (Lopressor) 25 mg PO Q12 [facility] Last Admin: 02/06/17 10:46 Dose: 25 mg Multivitamins/Minerals (Therapeutic-M Tab) 1 tab PO 0800 [facility] Nitroglycerin (Nitro-Bid 2% Oint) 1 ea TOP Q8H [facility] Last Admin: 02/06/17 10:08 Dose: 1 ea Thiamine HCl (Vitamin B1 Tab) 100 mg PO DAILY [facility] - Labs Labs: 02/06/17 06:30 02/06/17 06:30 PT 11.4 SECONDS (9.4-12.5) 02/06/17 06:30 INR 1.04 (0.93-1.08) 02/06/17 06:30 APTT 31.4 Seconds (25.1-36.5) 02/06/17 06:30 - Additional Findings Additional findings: Phys Exam: VS as below Const'l: a&o x 4, nad Head/Neck: neck supple, no jvd, trachea midline, carotid midline, no cervical/ head mass Eyes: aline, nonicteric sclera, eom intact ENT: auditory acuity grossly intact, throat not congested, no nasal deformity Cardio: rrr, no m/r/g, no carotid bruit, nml s1, s2 Pulm: no accessory muscle use, equal nml breath sounds bilaterally, ctab Abd: s/nt/nd, nbs x 4 q, no palpable masses Derm: no rashes, no ulcers, no lesions Extr: no edema, no cyanosis, no calf tenderness, no lesions, no varicosities Neuro: cn II-XII grossly intact, ue and le 5/5 muscle strength bilaterally, no los ue, le bilaterally and core
--- NOTE | 2017-02-06 14:18 | CP.PCM.HP ---
<EstebanElio - Last Filed: 02/06/17 13:59> History of Present Illness - History of Present Illness History of Present Illness: H/P for Dr. Tara CID DO, PGY-1 CC: Chest Pressure / Tachycardia HPI: 50 M with pertinent PMHx of A-Fib, HTN, and tachy-viki syndrome s/p pacemaker placement, presented yesterday with a one day duration of 5/10, non-radiating, left sternal chest pressure and tachycardia that was not associated with any other symptoms. Pt admitted to not taking his metoprolol for two days. Patient states that he feels better since getting his medications here. Pt denies f/ch/cp/sob/n/v/d/dysuria/frequency/urgency/hematuria/hematochezia/ hematemesis PSHx: Pacemaker, L hand repair, Gastric Bypass PMHx: A Fib, Tachybrady, HTN, CHF, CM, Alcohol Abuse, Palpitations, SVT, Rectal Bleeding, Perforated Ulcer, Diverticulitis, Pancreatitis, Depression, Migraine All: NKDA SocHx: 24-30 beers a day; denies Illicits, Tobacco Hosp: Recent admission for palpitations and CP in 12/2016 FamHx: Ovarian CA Meds: Digoxin, Diltiazem, Pepcid, Lasix, Multivitamin ROS: Const'l: pt denies fever, chills, generalized weakness ENT: pt denies dysphagia, otalgia, hearing deficit, rhinorrhea Eyes: pt denies sudden loss of vision, diplopia, blurred vision MSK: +back pain; pt denies muscle stiffness, joint pain, extremity cramping Cardio: +see hpi Pulm: pt denies cough, hemoptysis, wheeze GI: pt denies loss of appetite, abdominal pain, constipation, melena, n/v/d : pt denies burning on urination, urinary frequency, hematuria, urinary urgency Neuro: pt denies paresis, paresthesia, dizziness, valiente, numbness, tingling Derm: pt denies skin changes, lesions, nail changes Endo: pt denies intolerance to heat/cold, diaphoresis, night sweats, polydipsia Psych: pt denies anxiety, depression, mood changes Present on Admission - Present on Admission Any Indicators Present on Admission: No Past Patient History - Infectious Disease Hx of Infectious Diseases: None - Tetanus Immunizations Tetanus Immunization: Unknown - Past Medical History & Family History Past Medical History?: Yes - Past Social History Smoking Status: Never Smoked - CARDIAC Hx Cardiac Disorders: Yes (Atrial fibrillation, SVT) Hx Angina: Yes Hx Cardia Arrhythmia: Yes Hx Congestive Heart Failure: Yes Hx Hypertension: Yes Hx Pacemaker: Yes Hx Peripheral Edema: Yes - PULMONARY Hx Respiratory Disorders: Yes (shortness of breath) - NEUROLOGICAL Hx Neurological Disorder: No - HEENT Hx HEENT Problems: Yes (eyeglasses) Other/Comment: 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 related noise exposure - RENAL Hx Chronic Kidney Disease: No - ENDOCRINE/METABOLIC Hx Endocrine Disorders: No - HEMATOLOGICAL/ONCOLOGICAL Hx Blood Disorders: Yes Hx Anemia: Yes Other/Comment: Thrombocytopneia, leukopneia - INTEGUMENTARY Hx Dermatological Problems: No Other/Comment: tatoos, bruise to left abd and rib area, left eye orbit eccymosis fell at home 10/18/16 - MUSCULOSKELETAL/RHEUMATOLOGICAL Hx Falls: Yes - GASTROINTESTINAL Hx Gastrointestinal Disorders: Yes Hx Diverticulitis: Yes Hx Liver Failure: Yes (Abnormal Liver function test) Hx Pancreatitis: Yes - GENITOURINARY/GYNECOLOGICAL Hx Genitourinary Disorders: No - PSYCHIATRIC Hx Anxiety: Yes Hx Depression: Yes Hx Substance Use: No Other/Comment: alcohol abuse and withdrawal/ delirium - SURGICAL HISTORY Hx Cardiac Catheterization: Yes Other/Comment: ulcer surgery x2 - ANESTHESIA Hx Anesthesia: Yes Hx Anesthesia Reactions: No Hx Malignant Hyperthermia: No Meds Allergies/Adverse Reactions: Allergies Allergy/AdvReac Type Severity Reaction Status Date / Time No Known Allergies Allergy Verified 02/05/17 12:36 Physical Exam - Additional Findings Additional findings: Phys Exam: VS as below Const'l: a&o x 4, nad Head/Neck: neck supple, no jvd, trachea midline, carotid midline, no cervical/ head mass Eyes: aline, nonicteric sclera, eom intact ENT: auditory acuity grossly intact, throat not congested, no nasal deformity Cardio: +Tachycardia - rate is changing rapidly (100-160); +Irregular rhythm (A-Fib on monitor); no m/r/g, no carotid bruit, nml s1, s2 Pulm: no accessory muscle use, equal nml breath sounds bilaterally, ctab Abd: s/nt/nd, nbs x 4 q, no palpable masses Derm: no rashes, no ulcers, no lesions Extr: no edema, no cyanosis, no calf tenderness, no lesions, no varicosities Neuro: cn II-XII grossly intact, ue and le 5/5 muscle strength bilaterally, no los ue, le bilaterally and core Results - Vital Signs Recent Vital Signs: Last Vital Signs Temp 98.8 F 02/06/17 04:00 Pulse 104 H 02/06/17 11:00 Resp 18 02/06/17 11:00 BP 85/52 L 02/06/17 11:00 Pulse Ox 96 02/06/17 11:00 - Labs Result Diagrams: 02/06/17 06:30 02/06/17 06:30 Labs: Laboratory Results - last 24 hr 02/05/17 02/06/17 02/06/17 19:50 01:15 06:30 WBC 2.8 L* D RBC 4.29 Hgb 13.6 L Hct 38.7 L MCV 90.2 D MCH 31.7 MCHC 35.1 RDW 15.6 H Plt Count 44 L* MPV 10.9 Gran % 52.3 Lymph % (Auto) 21.8 L [place] % (Auto) 25.1 H Eos % (Auto) 0.4 L Baso % (Auto) 0.4 Gran # 1.44 Lymph # 0.6 L [place] # 0.7 H Eos # 0.0 Baso # 0.01 PT INR APTT Sodium Potassium Chloride Carbon Dioxide Anion Gap BUN Creatinine Est GFR ( Amer) Est GFR (Non-Af Amer) Random Glucose Calcium Total Bilirubin AST ALT Alkaline Phosphatase Troponin I < 0.01 0.01 Total Protein Albumin Globulin Albumin/Globulin Ratio 02/06/17 02/06/17 06:30 06:30 WBC RBC Hgb Hct MCV MCH MCHC RDW Plt Count MPV Gran % Lymph % (Auto) [place] % (Auto) Eos % (Auto) Baso % (Auto) Gran # Lymph # [place] # Eos # Baso # PT 11.4 INR 1.04 APTT 31.4 Sodium 131 L Potassium 4.2 Chloride 98 Carbon Dioxide 20 L Anion Gap 16 BUN 8 Creatinine 0.6 L Est GFR ( Amer) > 60 Est GFR (Non-Af Amer) > 60 Random Glucose 85 Calcium 9.4 Total Bilirubin 4.8 H AST 265 H D ALT 132 H Alkaline Phosphatase 112 Troponin I Total Protein 8.1 Albumin 4.1 Globulin 4.0 Albumin/Globulin Ratio 1.0 L Assessment & Plan - Assessment and Plan (Free Text) Assessment: A/P 50 M with pertinent PMHx of A-Fib, HTN, and tachy-viki syndrome s/p pacemaker placement presenting with 1 day duration of tachycardia and palpitations. Monitor shows A-Fib, Initial EKG shows ST/T depression. Tropes negative Acute Atrial Fibrillation, likely 2/2 medication non-compliance - Dr. Collins on c/s - Troponins neg X 3 - Nitrobid 2% q8 TOP - ASA 81 mg PO daily - Metoprolol Tartrate 25 mg po bid - Digoxin .125 mg PO daily - ECHO: pending Hyponatremia likely 2/2 EtOH Consumption - Fluid restrict 1500 mL Acute EtOH Intoxication - CIWA protocol in place - LFT's elevated - No librium - PRN Ativan - Thiamine, KCl HTN - Lopressor 2.5 mg IVP PUD - Pepcid 40 mg PO GI/DVT PPHXS - Pepcid as above - SCDs <Sincere Pacheco B - Last Filed: 02/06/17 17:40> Results - Vital Signs Recent Vital Signs: Last Vital Signs Temp 98.8 F 02/06/17 04:00 Pulse 114 H 02/06/17 16:28 Resp 12 02/06/17 15:01 BP 123/84 02/06/17 15:01 Pulse Ox 99 02/06/17 15:01 - Labs Result Diagrams: 02/06/17 06:30 02/06/17 06:30 Labs: Laboratory Results - last 24 hr 02/05/17 02/06/17 02/06/17 19:50 01:15 06:30 WBC 2.8 L* D RBC 4.29 Hgb 13.6 L Hct 38.7 L MCV 90.2 D MCH 31.7 MCHC 35.1 RDW 15.6 H Plt Count 44 L* MPV 10.9 Gran % 52.3 Lymph % (Auto) 21.8 L [place] % (Auto) 25.1 H Eos % (Auto) 0.4 L Baso % (Auto) 0.4 Gran # 1.44 Lymph # 0.6 L [place] # 0.7 H Eos # 0.0 Baso # 0.01 PT INR APTT Sodium Potassium Chloride Carbon Dioxide Anion Gap BUN Creatinine Est GFR ( Amer) Est GFR (Non-Af Amer) Random Glucose Calcium Total Bilirubin AST ALT Alkaline Phosphatase Troponin I < 0.01 0.01 Total Protein Albumin Globulin Albumin/Globulin Ratio 02/06/17 02/06/17 06:30 06:30 WBC RBC Hgb Hct MCV MCH MCHC RDW Plt Count MPV Gran % Lymph % (Auto) [place] % (Auto) Eos % (Auto) Baso % (Auto) Gran # Lymph # [place] # Eos # Baso # PT 11.4 INR 1.04 APTT 31.4 Sodium 131 L Potassium 4.2 Chloride 98 Carbon Dioxide 20 L Anion Gap 16 BUN 8 Creatinine 0.6 L Est GFR ( Amer) > 60 Est GFR (Non-Af Amer) > 60 Random Glucose 85 Calcium 9.4 Total Bilirubin 4.8 H AST 265 H D ALT 132 H Alkaline Phosphatase 112 Troponin I Total Protein 8.1 Albumin 4.1 Globulin 4.0 Albumin/Globulin Ratio 1.0 L Attending/Attestation - Attestation I have personally seen and examined this patient.: Yes I have fully participated in the care of the patient.: Yes I have reviewed all pertinent clinical information: Yes Notes (Text): I have seen and examined the patient at bedside. Agree with the above note with the following additions/ exceptions: Briefly this is 50 year old male with history of tachy-viki syndrome s/p pacemaker placement, paroxysmal atrial fibrillation, sciatica, hypertension, PUD and chronic alcohol abuse who came for evaluation of chest pain and atrial fibrillation with RVR. Currently denies any chest pain, dyspnea, palpitations however admits to auditory hallucinations, nausea and headache. Patient is awake, alert and oriented x 3. Patient remains tachycardic, Cardizem bolus was given and digoxin was added. Continue ativan damir and prn. Start flexeril and tramadol for back pain. Hyponatremia is most likely secondary to beer potomania. Patient was started on D5W to prevent rapid correction. Continue pepcid and SCD's. Upon discharge patient will follow up with PMD of choice. Dr Sincere Pacheco
--- NOTE | 2017-02-06 14:40 | CON ---
DATE: CARDIOLOGY CONSULTATION REASON FOR CONSULTATION: Alcohol intoxication, rapid atrial fibrillation. HISTORY OF PRESENT ILLNESS: The patient is a 51-year-old male, who has history of EtOH abuse, history of recurrent falls, and history of chronic atrial fibrillation with dilated cardiomyopathy. The patient presented because of palpitation, dizziness, and weakness, was found to be in rapid atrial fibrillation. The patient was also alcohol intoxicated. The patient denies any recent fall or seizure and seizure activity. SOCIAL HISTORY: The patient is a EtOH abuser. He lives by himself. MEDICATIONS: Aspirin 81 mg once a day, Ativan 1 mg intravenously q. 12 hours p.r.n. for agitation, Lopressor 25 mg twice a day, Protonix 40 mg p.o. once a day, the patient just received one dose of 10 mg of IV Cardizem. PHYSICAL EXAMINATION: GENERAL: The patient is a middle-aged male, who does not appear to be in acute distress. VITAL SIGNS: Blood pressure 85/52, heart rate 117, respirations 18, and temperature 98.8. HEENT: Normocephalic. CHEST: Clear. HEART: S1 and S2 regular. ABDOMEN: Soft. EXTREMITIES: 1+ pitting edema. LABORATORY DATA: Hemoglobin and hematocrit 15.6 and 38.7, white count 2.8, and platelet count 44,000. SMA-7 today, sodium 131, potassium 4.2, chloride 98, CO2 is 20, glucose 85, BUN 8, and creatinine 0.6. Three sets of troponin are negative. TSH level is within normal limits. Alcohol level is 198. Drug screen is negative. EKG revealed atrial fibrillation with rapid ventricular response at the rate of 107, posteroanterior infarct, age indeterminate, ST-T wave changes, consider lateral ischemia or digitalis effect. ASSESSMENT: 1. Rapid atrial fibrillation. 2. Dilated cardiomyopathy. 3. History of ventricular pacemaker placement. 4. Improved hypokalemia and hyponatremia. 5. Leukopenia and thrombocytopenia. RECOMMENDATIONS: Continue aspirin 81 mg once a day. I recommended to start Lanoxin 0.125 mg orally daily. Continue Lopressor 25 mg twice a day. Once the blood pressure improves, the patient will be started on Aldactone as well as afterload-reducing agents. Earle Patel MD
[2017-02-06] MEDS: Digoxin 125 mcg (0.125 mg) Tab PO SCH (14:44)
[2017-02-06] MEDS: Multivitamin With Minerals Tab PO SCH (14:44)
[2017-02-07] MEDS: Nitroglycerin 2% Ointment Foilpak UD TOP SCH ×3 (02:00→17:15)
[2017-02-07 07:23] LABS: BASO # 0.01 K/mm3 (0.0-2.0); BASO % 0.4 % (0.0-3.0); EOS % 1.1 % (1.5-5.0); GRAN # 1.34 (1.4-6.5); HEMATOCRIT 36.8 % (42.0-52.0); LYMPH # 0.7 (1.2-3.4); LYMPH % 27.6 % (22.0-35.0); MEAN CELL VOLUME 91.3 fl (80.0-105.0); MEAN PLATELET VOLUME 10.9 fl (7.0-11.0); MONO # 0.6 (0.1-0.6); MONO % 20.9 % (1.0-6.0); RED CELL DISTRIBUTION WIDTH 15.2 % (11.5-14.5)
[2017-02-07 07:37] LABS: WHITE BLOOD COUNT 2.7 10^3/ul (4.5-11.0)
[2017-02-07 07:38] LABS: ALKALINE PHOSPHATASE 110 U/L (38-126); ALT/SGPT 111 U/L (7-56); AST/SGOT 205 U/L (17-59); BILIRUBIN,TOTAL 4.3 mg/dL (0.2-1.3); BLOOD UREA NITROGEN 8 mg/dL (7-21); CALCIUM 9.4 mg/dL (8.4-10.5); CARBON DIOXIDE 23 mmol/L (21-33); CHLORIDE 99 mmol/L (98-107); GFR AFRICAN-AMERICAN > 60; GLUCOSE,RANDOM 106 mg/dL (70-110); POTASSIUM 3.7 mmol/L (3.6-5.0); SODIUM 128 mmol/L (132-148); TOTAL PROTEIN 7.5 g/dL (5.8-8.3)
[2017-02-07] MEDS: Multivitamin With Minerals Tab PO SCH (08:16)
--- NOTE | 2017-02-07 11:26 | CARD ---
APPROVED REPORT EXAM: Two-dimensional and M-mode echocardiogram with Doppler and color Doppler. Other Information Quality : FairRhythm : INDICATION Atrial Fibrillation Chest Pain 2D DIMENSIONS Left Atrium (2D)4.5 (1.6-4.0cm)IVSd1.3 (0.7-1.1cm) LVDd4.3 (3.9-5.9cm)PWd1.3 (0.7-1.1cm) M-Mode DIMENSIONS Aortic Root4.00 (2.2-3.7cm)Aortic Cusp Exc.2.00 (1.5-2.0cm) Aortic Valve AoV Peak [id number]/s Mitral Valve E/A ratio0.0 TDI E/Lateral E'0.0E/Medial E'0.0 Pulmonary Valve PV Peak Iejuejvr70.3cm/sPV Peak Grad.1mmHg Tricuspid Valve TR Peak [id number]/sRAP [id number] Peak Gr.20mmHg [id number] LEFT VENTRICLE The left ventricle is normal size. There is normal left ventricular wall thickness. Left ventricle systolic function is moderately to severely impaired. The Ejection Fraction is 30-35%. There is moderate to severe global hypokinesis. RIGHT VENTRICLE The right ventricle is normal size. ATRIA The left atrium is moderately dilated. The right atrium size is normal. The interatrial septum is intact with no evidence for an atrial septal defect. AORTIC VALVE The aortic valve is normal in structure. MITRAL VALVE The mitral valve is normal in structure. Mitral regurgitation is mild. TRICUSPID VALVE The tricuspid valve is normal in structure. There is mild tricuspid regurgitation. PULMONIC VALVE The pulmonic valve is not well visualized. GREAT VESSELS The aortic root is normal in size. PERICARDIAL EFFUSION There is no pericardial effusion. <Conclusion> The left ventricle is normal size. There is normal left ventricular wall thickness. Left ventricle systolic function is moderately to severely impaired. The Ejection Fraction is 30-35%. There is moderate to severe global hypokinesis. The LV study is limited. Mitral regurgitation is mild. There is mild tricuspid regurgitation.
[2017-02-07] MEDS ORDERED: Digoxin 500 mcg/2ml (0.5 mg/2ml) Inj IVP ONE (12:50)
[2017-02-07] MEDS: Digoxin 125 mcg (0.125 mg) Tab PO SCH (13:10)
[2017-02-07 13:12] VITALS: PULSE 105
--- NOTE | 2017-02-07 13:35 | CP.PCM.PN ---
<EstebanElio - Last Filed: 02/07/17 13:32> Subjective - Date & Time of Evaluation Date of Evaluation: 02/07/17 Time of Evaluation: 10:00 - Subjective Subjective: Medicine progress note for Dr. Pacheco - TKS DO PGY - 1, Pt s/e bedside. Pt denies cp, palpitations, and sob. States he wants to go home. Pt advised that with his fluctuating HR, this is not in his best interest at this time. Pt denies any complaints. Objective - Vital Signs/Intake and Output Vital Signs (last 24 hours): Temp Pulse Resp BP Pulse Ox 98.4 F 84 67 H 101/52 L 100 02/07/17 05:50 02/07/17 10:30 02/07/17 10:30 02/07/17 10:00 02/07/17 10:30 Intake and Output: 02/07/17 02/07/17 06:59 18:59 Output Total 600 Balance -600 - Medications Medications: Current Medications Aspirin (Aspirin Chewable) 81 mg PO DAILY [facility] Last Admin: 02/07/17 09:56 Dose: 81 mg Cyclobenzaprine HCl (Flexeril) 5 mg PO TID PRN PRN Reason: Muscle spasm Last Admin: 02/06/17 16:28 Dose: 5 mg Digoxin (Lanoxin) 0.125 mg PO 1400 [facility] Last Admin: 02/07/17 13:10 Dose: Not Given Famotidine (Pepcid) 40 mg PO DAILY [facility] Last Admin: 02/07/17 09:56 Dose: 40 mg Folic Acid (Folic Acid) 1 mg PO DAILY [facility] Last Admin: 02/07/17 09:56 Dose: 1 mg diltiaZEM IVPB 100mg in NS (Cardizem 100mg In Ns) 100 mls @ 5 mls/hr IV .Q20H PRN; Protocol; 5 MG/HR PRN Reason: TITRATE PER MD ORDER Last Admin: 02/07/17 08:19 Dose: 5 mg/hr, 5 mls/hr Dextrose (Dextrose 5% In Water 1000 Ml) 1,000 mls @ 100 mls/hr IV .Q10H [facility] Last Admin: 02/07/17 08:23 Dose: 100 mls/hr Lorazepam (Ativan) 1 mg IVP Q4H ALLIE PRN Reason: Protocol Last Admin: 02/07/17 13:09 Dose: 1 mg Lorazepam (Ativan) 2 mg IVP Q2 PRN; Protocol PRN Reason: Agitation Last Admin: 02/07/17 09:56 Dose: 2 mg Metoprolol Tartrate (Lopressor) 50 mg PO Q12 ALLIE Last Admin: 02/07/17 09:56 Dose: 50 mg Multivitamins/Minerals (Therapeutic-M Tab) 1 tab PO 0800 ALLIE Last Admin: 02/07/17 08:16 Dose: 1 tab Nitroglycerin (Nitro-Bid 2% Oint) 1 ea TOP Q8H [facility] Last Admin: 02/07/17 09:52 Dose: Not Given Thiamine HCl (Vitamin B1 Tab) 100 mg PO DAILY [facility] Last Admin: 02/07/17 09:56 Dose: 100 mg Tramadol HCl (Ultram) 50 mg PO TID PRN PRN Reason: Pain, moderate (4-7) - Labs Labs: 02/07/17 06:30 02/07/17 06:30 PT 11.4 SECONDS (9.4-12.5) 02/06/17 06:30 INR 1.04 (0.93-1.08) 02/06/17 06:30 APTT 31.4 Seconds (25.1-36.5) 02/06/17 06:30 - Additional Findings Additional findings: Phys Exam: VS as below Const'l: a&o x 4, nad Head/Neck: neck supple, no jvd, trachea midline, carotid midline, no cervical/ head mass Eyes: aline, nonicteric sclera, eom intact ENT: auditory acuity grossly intact, throat not congested, no nasal deformity Cardio: +Tachycardia resolved, patient is in 80s; +Irregular rhythm (A-Fib on monitor); no m/r/g, no carotid bruit, nml s1, s2 Pulm: no accessory muscle use, equal nml breath sounds bilaterally, ctab Abd: s/nt/nd, nbs x 4 q, no palpable masses Derm: no rashes, no ulcers, no lesions Extr: no edema, no cyanosis, no calf tenderness, no lesions, no varicosities Neuro: cn II-XII grossly intact, ue and le 5/5 muscle strength bilaterally, no los ue, le bilaterally and core Assessment and Plan - Assessment and Plan (Free Text) Assessment: A/P 50 M with pertinent PMHx of A-Fib, HTN, and tachy-viki syndrome s/p pacemaker placement presenting with 1 day duration of tachycardia and palpitations. Monitor shows A-Fib, Initial EKG shows ST/T depression. Tropes negative Acute Atrial Fibrillation, likely 2/2 medication non-compliance - Dr. Collins on c/s - Troponins neg X 3 - Nitrobid 2% q8 TOP - ASA 81 mg PO daily - Metoprolol Tartrate 25 mg po bid - Digoxin .125 mg PO daily - ECHO: pending Hyponatremia likely 2/2 Chronic EtOH Consumption - Fluid restrict 1500 mL Acute EtOH Intoxication - CIWA protocol in place - LFT's elevated - No librium - PRN Ativan and ALLIE Ativan - Thiamine, KCl HTN - Lopressor 2.5 mg IVP PUD - Pepcid 40 mg PO Back Pain - Tramadol and Flexeril GI/DVT PPHXS - Pepcid as above - SCDs <Sincere Pacheco B - Last Filed: 02/07/17 15:35> Objective - Vital Signs/Intake and Output Vital Signs (last 24 hours): Temp Pulse Resp BP Pulse Ox 98.4 F 195 H 15 93/68 L 100 02/07/17 05:50 02/07/17 14:21 02/07/17 14:30 02/07/17 14:00 02/07/17 14:30 Intake and Output: 02/07/17 02/07/17 06:59 18:59 Output Total 600 Balance -600 - Medications Medications: Current Medications Aspirin (Aspirin Chewable) 81 mg PO DAILY [facility] Last Admin: 02/07/17 09:56 Dose: 81 mg Cyclobenzaprine HCl (Flexeril) 5 mg PO TID PRN PRN Reason: Muscle spasm Last Admin: 02/06/17 16:28 Dose: 5 mg Digoxin (Lanoxin) 0.125 mg PO 1400 [facility] Last Admin: 02/07/17 13:10 Dose: Not Given Famotidine (Pepcid) 40 mg PO DAILY [facility] Last Admin: 02/07/17 09:56 Dose: 40 mg Folic Acid (Folic Acid) 1 mg PO DAILY [facility] Last Admin: 02/07/17 09:56 Dose: 1 mg diltiaZEM IVPB 100mg in NS (Cardizem 100mg In Ns) 100 mls @ 5 mls/hr IV .Q20H PRN; Protocol; 5 MG/HR PRN Reason: TITRATE PER MD ORDER Last Admin: 02/07/17 08:19 Dose: 5 mg/hr, 5 mls/hr Dextrose (Dextrose 5% In Water 1000 Ml) 1,000 mls @ 100 mls/hr IV .Q10H [facility] Last Admin: 02/07/17 08:23 Dose: 100 mls/hr Lorazepam (Ativan) 1 mg IVP Q4H [facility]IE PRN Reason: Protocol Last Admin: 02/07/17 13:09 Dose: 1 mg Lorazepam (Ativan) 2 mg IVP Q2 PRN; Protocol PRN Reason: Agitation Last Admin: 02/07/17 09:56 Dose: 2 mg Metoprolol Tartrate (Lopressor) 50 mg PO Q12 ALLIE Last Admin: 02/07/17 09:56 Dose: 50 mg Multivitamins/Minerals (Therapeutic-M Tab) 1 tab PO 0800 ALLIE Last Admin: 02/07/17 08:16 Dose: 1 tab Nitroglycerin (Nitro-Bid 2% Oint) 1 ea TOP Q8H [facility] Last Admin: 02/07/17 09:52 Dose: Not Given Thiamine HCl (Vitamin B1 Tab) 100 mg PO DAILY [facility] Last Admin: 02/07/17 09:56 Dose: 100 mg Tramadol HCl (Ultram) 50 mg PO TID PRN PRN Reason: Pain, moderate (4-7) Last Admin: 02/07/17 15:13 Dose: 50 mg - Labs Labs: 02/07/17 06:30 02/07/17 06:30 PT 11.4 SECONDS (9.4-12.5) 02/06/17 06:30 INR 1.04 (0.93-1.08) 02/06/17 06:30 APTT 31.4 Seconds (25.1-36.5) 02/06/17 06:30 Attending/Attestation - Attestation I have personally seen and examined this patient.: Yes I have fully participated in the care of the patient.: Yes I have reviewed all pertinent clinical information, including history, physical exam and plan: Yes Notes (Text): I have seen and examined the patient at bedside. Agree with the above note with the following additions/ exceptions: Briefly this is 50 year old male with history of tachy-viki syndrome s/p pacemaker placement, paroxysmal atrial fibrillation, sciatica, hypertension, PUD and chronic alcohol abuse who came for evaluation of chest pain and atrial fibrillation with RVR. Currently denies any chest pain, dyspnea, palpitations, auditory hallucinations, nausea and headache. Patient is awake, alert and oriented x 3. Heart rate has improved. Continue Cardizem drip and digoxin. Continue to taper ativan. Continue flexeril and tramadol for back pain. Hyponatremia is most likely secondary to beer potomania. Continue pepcid and SCD's. Upon discharge patient will follow up with PMD of choice. Dr Sincere Pacheco
--- NOTE | 2017-02-07 15:55 | PN ---
DATE: SUBJECTIVE: The patient was in rapid atrial fibrillation. IV Cardizem was restarted at 10 mg per hour. PHYSICAL EXAMINATION: VITAL SIGNS: Blood pressure 101/52, heart rate 98, and respirations 14. HEENT: Normocephalic. CHEST: Bibasilar rhonchi. HEART: S1 and S2 regular. EXTREMITIES: No edema. LABORATORY DATA: Today's hemoglobin and hematocrit are 12.5 and 38.6, white count 2.7, and platelet count 49,000. SMA-7 is within normal limits except for sodium of 128 and creatinine of 0.5. ASSESSMENT: 1. Dilated cardiomyopathy. 2. Chronic atrial fibrillation. 3. Status post single-chamber ventricular pacemaker placement. 4. History of alcohol abuse. 5. Leukopenia and thrombocytopenia. 6. History of depression. RECOMMENDATIONS: Continue aspirin 81 mg once a day. Continue current Cardizem infusion at 10 mg per hour. I did order single dose digoxin 0.25 mg intravenously to be given now beside the oral 0.125 mg daily dose. Continue Lopressor 50 mg twice a day once IV Cardizem is discontinued or reduced. Oral Cardizem will be started at 60 mg t.i.d. Earle Patel MD
[2017-02-07] MEDS ORDERED: diltiaZEM IVPB 100mg in NS 100 ML IV PRN (17:44)
[2017-02-08] MEDS: Nitroglycerin 2% Ointment Foilpak UD TOP SCH (02:39)
[2017-02-08 06:20] VITALS: RESP 13
[2017-02-08 06:53] LABS: ALKALINE PHOSPHATASE 100 U/L (38-126); ALT/SGPT 117 U/L (7-56); AST/SGOT 190 U/L (17-59); BASO # 0.01 K/mm3 (0.0-2.0); BASO % 0.3 % (0.0-3.0); BILIRUBIN,TOTAL 3.4 mg/dL (0.2-1.3); BLOOD UREA NITROGEN 5 mg/dL (7-21); CALCIUM 9.4 mg/dL (8.4-10.5); CARBON DIOXIDE 22 mmol/L (21-33); CHLORIDE 102 mmol/L (98-107); EOS % 0.8 % (1.5-5.0); GFR AFRICAN-AMERICAN > 60; GLUCOSE,RANDOM 109 mg/dL (70-110); GRAN # 2.21 (1.4-6.5); GRAN % 60.4 % (50.0-68.0); HEMATOCRIT 39.3 % (42.0-52.0); LYMPH # 0.7 (1.2-3.4); LYMPH % 20.2 % (22.0-35.0); MEAN CELL VOLUME 93.3 fl (80.0-105.0); MEAN CORPUSCULAR HEMOGLOBIN 31.8 pg (25.0-35.0); MEAN CORPUSCULAR HGB CONC 34.1 g/dl (31.0-37.0); MEAN PLATELET VOLUME 11.1 fl (7.0-11.0); MONO # 0.7 (0.1-0.6); MONO % 18.3 % (1.0-6.0); POTASSIUM 4.1 mmol/L (3.6-5.0); RED CELL DISTRIBUTION WIDTH 15.6 % (11.5-14.5); SODIUM 134 mmol/L (132-148); WHITE BLOOD COUNT 3.7 10^3/ul (4.5-11.0)
[2017-02-08 08:30] VITALS: BP 115/78; PULSE 128
[2017-02-08 08:31] VITALS: TEMP 98.6; O2SAT 100
[2017-02-08] MEDS: Multivitamin With Minerals Tab PO SCH (08:36)
--- NOTE | 2017-02-08 15:16 | CP.PCM.DIS ---
<Elio Orellana - Last Filed: 02/08/17 15:01> Provider - Provider Date of Admission: 02/05/17 17:53 Attending physician: Sincere Pacheco MD Consults: ICU: Dr. Camilo Cardio: Dr. Patel and Dr. De La Rosa Time Spent in preparation of Discharge (in minutes): 45 Hospital Course - Lab Results Lab Results: Micro Results 02/05/17 21:40 Naris MRSA Culture (Admit) - Final MRSA NOT DETECTED Most Recent Lab Values WBC 3.7 10^3/ul (4.5-11.0) L D 02/08/17 05:30 RBC 4.21 10^6/uL (3.5-6.1) 02/08/17 05:30 Hgb 13.4 g/dL (14.0-18.0) L 02/08/17 05:30 Hct 39.3 % (42.0-52.0) L 02/08/17 05:30 MCV 93.3 fl (80.0-105.0) 02/08/17 05:30 MCH 31.8 pg (25.0-35.0) 02/08/17 05:30 MCHC 34.1 g/dl (31.0-37.0) 02/08/17 05:30 RDW 15.6 % (11.5-14.5) H 02/08/17 05:30 Plt Count 59 10^3/uL (120.0-450.0) L 02/08/17 05:30 MPV 11.1 fl (7.0-11.0) H 02/08/17 05:30 Gran % 60.4 % (50.0-68.0) 02/08/17 05:30 Lymph % (Auto) 20.2 % (22.0-35.0) L 02/08/17 05:30 [place] % (Auto) 18.3 % (1.0-6.0) H 02/08/17 05:30 Eos % (Auto) 0.8 % (1.5-5.0) L 02/08/17 05:30 Baso % (Auto) 0.3 % (0.0-3.0) 02/08/17 05:30 Gran # 2.21 (1.4-6.5) 02/08/17 05:30 Lymph # 0.7 (1.2-3.4) L 02/08/17 05:30 [place] # 0.7 (0.1-0.6) H 02/08/17 05:30 Eos # 0.0 (0.0-0.7) 02/08/17 05:30 Baso # 0.01 K/mm3 (0.0-2.0) 02/08/17 05:30 Neutrophils % (Manual) 57 % (50.0-70.0) 02/05/17 13:16 Lymphocytes % (Manual) 27 % (22.0-35.0) 02/05/17 13:16 Monocytes % (Manual) 16 % (1.0-6.0) H 02/05/17 13:16 Platelet Evaluation Low (NORMAL) 02/05/17 13:16 PT 11.4 SECONDS (9.4-12.5) 02/06/17 06:30 INR 1.04 (0.93-1.08) 02/06/17 06:30 APTT 31.4 Seconds (25.1-36.5) 02/06/17 06:30 Sodium 134 mmol/L (132-148) 02/08/17 05:30 Potassium 4.1 mmol/L (3.6-5.0) 02/08/17 05:30 Chloride 102 mmol/L (98-107) 02/08/17 05:30 Carbon Dioxide 22 mmol/L (21-33) 02/08/17 05:30 Anion Gap 14 (10-20) 02/08/17 05:30 BUN 5 mg/dL (7-21) L 02/08/17 05:30 Creatinine 0.5 mg/dl (0.8-1.5) L 02/08/17 05:30 Est GFR ( Amer) > 60 02/08/17 05:30 Est GFR (Non-Af Amer) > 60 02/08/17 05:30 Random Glucose 109 mg/dL (70-110) 02/08/17 05:30 Calcium 9.4 mg/dL (8.4-10.5) 02/08/17 05:30 Magnesium 1.8 mg/dL (1.7-2.2) 02/05/17 13:16 Total Bilirubin 3.4 mg/dL (0.2-1.3) H 02/08/17 05:30 AST 190 U/L (17-59) H 02/08/17 05:30 ALT 117 U/L (7-56) H 02/08/17 05:30 Alkaline Phosphatase 100 U/L (38-126) 02/08/17 05:30 Lactate Dehydrogenase 509 U/L (333-699) 02/05/17 13:16 Total Creatine Kinase 42 U/L (35-230) 02/05/17 13:16 Troponin I 0.01 ng/mL 02/06/17 01:15 NT-Pro-B Natriuret Pep 581 pg/mL (0-450) H 02/05/17 13:16 Total Protein 8.0 g/dL (5.8-8.3) 02/08/17 05:30 Albumin 4.0 g/dL (3.0-4.8) 02/08/17 05:30 Globulin 3.9 gm/dL 02/08/17 05:30 Albumin/Globulin Ratio 1.0 (1.1-1.8) L 02/08/17 05:30 Thyroxine (T4) 7.8 ug/dL (5.5-11.0) 02/05/17 13:16 TSH 3rd Generation 2.54 mIU/mL (0.46-4.68) 02/05/17 13:16 Urine Color Yellow (YELLOW) 02/05/17 14:50 Urine Appearance Clear (CLEAR) 02/05/17 14:50 Urine pH 6.5 (4.7-8.0) 02/05/17 14:50 Ur Specific [place] <= 1.005 (1.005-1.035) 02/05/17 14:50 Urine Protein Negative mg/dL (<30 mg/dL) 02/05/17 14:50 Urine Glucose (UA) Negative mg/dL (NEGATIVE) 02/05/17 14:50 Urine Ketones Negative mg/dL (NEGATIVE) 02/05/17 14:50 Urine Blood Negative (NEGATIVE) 02/05/17 14:50 Urine Nitrate Negative (NEGATIVE) 02/05/17 14:50 Urine Bilirubin Negative (NEGATIVE) 02/05/17 14:50 Urine Urobilinogen 0.2 E.U./dL (<1 E.U./dL) 02/05/17 14:50 Ur Leukocyte Esterase Negative Abdi/uL (NEGATIVE) 02/05/17 14:50 Urine Opiates Screen Negative (NEGATIVE) 02/05/17 14:50 Urine Methadone Screen Negative (NEGATIVE) 02/05/17 14:50 Ur Barbiturates Screen Negative (NEGATIVE) 02/05/17 14:50 Ur Phencyclidine Scrn Negative (NEGATIVE) 02/05/17 14:50 Ur Amphetamines Screen Negative (NEGATIVE) 02/05/17 14:50 U Benzodiazepines Scrn No result (NEGATIVE) 02/05/17 14:50 U Oth Cocaine Metabols Negative (NEGATIVE) 02/05/17 14:50 U Cannabinoids Screen Negative (NEGATIVE) 02/05/17 14:50 Alcohol, Quantitative 198 mg/dL (0-10) H 02/05/17 13:16 - Hospital Course Hospital Course: HPI: 50 M with pertinent PMHx of A-Fib, HTN, and tachy-viki syndrome s/p pacemaker placement, presented yesterday with a one day duration of 5/10, non-radiating, left sternal chest pressure and tachycardia that was not associated with any other symptoms. Pt admitted to not taking his metoprolol for two days. Patient states that he feels better since getting his medications here. Hospital Course: CXR: NAD EKG: A-Fib with RVR, ST and T wave abnormality V3/V4 ECHO: Decreased LV motility; EF 30-35%. Improved from ECHO 04/05. While here, Mr. Ybarra was given digoxin and a cardizem drip. Although he had a few bouts of tachycardia, his HR finally stabilized in the 80s. Pt also had back pain, for which he was given tramadol and flexeril. Patient denied having any CP/sob on the day he left and he was A/OX4. However, due to the variability in his HR, patient was advised to stay and be evaluated by cardiology to get his HR under control. Patient did not agree to this and left AMA. Discharge Exam - Head Exam Head Exam: ATRAUMATIC, NORMOCEPHALIC - Additional Findings Additional findings: Phys Exam: VS as below Const'l: a&o x 4, nad Head/Neck: neck supple, no jvd, trachea midline, carotid midline, no cervical/ head mass Eyes: aline, nonicteric sclera, eom intact ENT: auditory acuity grossly intact, throat not congested, no nasal deformity Cardio: +Tachycardia resolved, patient is in 80s; +Irregular rhythm (A-Fib on monitor); no m/r/g, no carotid bruit, nml s1, s2 Pulm: no accessory muscle use, equal nml breath sounds bilaterally, ctab Abd: s/nt/nd, nbs x 4 q, no palpable masses Derm: no rashes, no ulcers, no lesions Extr: no edema, no cyanosis, no calf tenderness, no lesions, no varicosities Neuro: cn II-XII grossly intact, ue and le 5/5 muscle strength bilaterally, no los ue, le bilaterally and core Discharge Plan - Follow Up Plan Condition: GOOD Disposition: AGAINST MEDICAL ADVICE <Sincere Pacheco - Last Filed: 02/08/17 16:13> Provider - Provider Date of Admission: 02/05/17 17:53 Attending physician: Sincere Pacheco MD Hospital Course - Lab Results Lab Results: Micro Results 02/05/17 21:40 Naris MRSA Culture (Admit) - Final MRSA NOT DETECTED Most Recent Lab Values WBC 3.7 10^3/ul (4.5-11.0) L D 02/08/17 05:30 RBC 4.21 10^6/uL (3.5-6.1) 02/08/17 05:30 Hgb 13.4 g/dL (14.0-18.0) L 02/08/17 05:30 Hct 39.3 % (42.0-52.0) L 02/08/17 05:30 MCV 93.3 fl (80.0-105.0) 02/08/17 05:30 MCH 31.8 pg (25.0-35.0) 02/08/17 05:30 MCHC 34.1 g/dl (31.0-37.0) 02/08/17 05:30 RDW 15.6 % (11.5-14.5) H 02/08/17 05:30 Plt Count 59 10^3/uL (120.0-450.0) L 02/08/17 05:30 MPV 11.1 fl (7.0-11.0) H 02/08/17 05:30 Gran % 60.4 % (50.0-68.0) 02/08/17 05:30 Lymph % (Auto) 20.2 % (22.0-35.0) L 02/08/17 05:30 [place] % (Auto) 18.3 % (1.0-6.0) H 02/08/17 05:30 Eos % (Auto) 0.8 % (1.5-5.0) L 02/08/17 05:30 Baso % (Auto) 0.3 % (0.0-3.0) 02/08/17 05:30 Gran # 2.21 (1.4-6.5) 02/08/17 05:30 Lymph # 0.7 (1.2-3.4) L 02/08/17 05:30 [place] # 0.7 (0.1-0.6) H 02/08/17 05:30 Eos # 0.0 (0.0-0.7) 02/08/17 05:30 Baso # 0.01 K/mm3 (0.0-2.0) 02/08/17 05:30 Neutrophils % (Manual) 57 % (50.0-70.0) 02/05/17 13:16 Lymphocytes % (Manual) 27 % (22.0-35.0) 02/05/17 13:16 Monocytes % (Manual) 16 % (1.0-6.0) H 02/05/17 13:16 Platelet Evaluation Low (NORMAL) 02/05/17 13:16 PT 11.4 SECONDS (9.4-12.5) 02/06/17 06:30 INR 1.04 (0.93-1.08) 02/06/17 06:30 APTT 31.4 Seconds (25.1-36.5) 02/06/17 06:30 Sodium 134 mmol/L (132-148) 02/08/17 05:30 Potassium 4.1 mmol/L (3.6-5.0) 02/08/17 05:30 Chloride 102 mmol/L (98-107) 02/08/17 05:30 Carbon Dioxide 22 mmol/L (21-33) 02/08/17 05:30 Anion Gap 14 (10-20) 02/08/17 05:30 BUN 5 mg/dL (7-21) L 02/08/17 05:30 Creatinine 0.5 mg/dl (0.8-1.5) L 02/08/17 05:30 Est GFR ( Amer) > 60 02/08/17 05:30 Est GFR (Non-Af Amer) > 60 02/08/17 05:30 Random Glucose 109 mg/dL (70-110) 02/08/17 05:30 Calcium 9.4 mg/dL (8.4-10.5) 02/08/17 05:30 Magnesium 1.8 mg/dL (1.7-2.2) 02/05/17 13:16 Total Bilirubin 3.4 mg/dL (0.2-1.3) H 02/08/17 05:30 AST 190 U/L (17-59) H 02/08/17 05:30 ALT 117 U/L (7-56) H 02/08/17 05:30 Alkaline Phosphatase 100 U/L (38-126) 02/08/17 05:30 Lactate Dehydrogenase 509 U/L (333-699) 02/05/17 13:16 Total Creatine Kinase 42 U/L (35-230) 02/05/17 13:16 Troponin I 0.01 ng/mL 02/06/17 01:15 NT-Pro-B Natriuret Pep 581 pg/mL (0-450) H 02/05/17 13:16 Total Protein 8.0 g/dL (5.8-8.3) 02/08/17 05:30 Albumin 4.0 g/dL (3.0-4.8) 02/08/17 05:30 Globulin 3.9 gm/dL 02/08/17 05:30 Albumin/Globulin Ratio 1.0 (1.1-1.8) L 02/08/17 05:30 Thyroxine (T4) 7.8 ug/dL (5.5-11.0) 02/05/17 13:16 TSH 3rd Generation 2.54 mIU/mL (0.46-4.68) 02/05/17 13:16 Urine Color Yellow (YELLOW) 02/05/17 14:50 Urine Appearance Clear (CLEAR) 02/05/17 14:50 Urine pH 6.5 (4.7-8.0) 02/05/17 14:50 Ur Specific [place] <= 1.005 (1.005-1.035) 02/05/17 14:50 Urine Protein Negative mg/dL (<30 mg/dL) 02/05/17 14:50 Urine Glucose (UA) Negative mg/dL (NEGATIVE) 02/05/17 14:50 Urine Ketones Negative mg/dL (NEGATIVE) 02/05/17 14:50 Urine Blood Negative (NEGATIVE) 02/05/17 14:50 Urine Nitrate Negative (NEGATIVE) 02/05/17 14:50 Urine Bilirubin Negative (NEGATIVE) 02/05/17 14:50 Urine Urobilinogen 0.2 E.U./dL (<1 E.U./dL) 02/05/17 14:50 Ur Leukocyte Esterase Negative Abdi/uL (NEGATIVE) 02/05/17 14:50 Urine Opiates Screen Negative (NEGATIVE) 02/05/17 14:50 Urine Methadone Screen Negative (NEGATIVE) 02/05/17 14:50 Ur Barbiturates Screen Negative (NEGATIVE) 02/05/17 14:50 Ur Phencyclidine Scrn Negative (NEGATIVE) 02/05/17 14:50 Ur Amphetamines Screen Negative (NEGATIVE) 02/05/17 14:50 U Benzodiazepines Scrn No result (NEGATIVE) 02/05/17 14:50 U Oth Cocaine Metabols Negative (NEGATIVE) 02/05/17 14:50 U Cannabinoids Screen Negative (NEGATIVE) 02/05/17 14:50 Alcohol, Quantitative 198 mg/dL (0-10) H 02/05/17 13:16 Attending/Attestation - Attestation I have personally seen and examined this patient.: No I have fully participated in the care of the patient.: No I have reviewed all pertinent clinical information, including history, physical exam and plan: Yes Notes (Text): Patient left AMA .
== END 2017-02-08 08:50 | disposition left against medical advice (07) | DRG 138 ==
LOC: ED 12:28 → ERH 17:53 → CCU 21:32
PROVIDERS: ADMIT Internal Medicine; ATTEND Hospitalist
DX: I48.0 Paroxysmal atrial fibrillation (principal); I50.9 Heart failure, unspecified; I11.0 Hypertensive heart disease with heart failure; D69.59 Other secondary thrombocytopenia; I42.0 Dilated cardiomyopathy; E87.1 Hypo-osmolality and hyponatremia; E87.6 Hypokalemia; I49.5 Sick sinus syndrome; K27.9 Peptic ulcer, site unspecified, unspecified as acute or chronic, without hemorrhage or perforation; F10.229 Alcohol dependence with intoxication, unspecified; M54.30 Sciatica, unspecified side; D72.819 Decreased white blood cell count, unspecified; F32.9 Major depressive disorder, single episode, unspecified; G43.909 Migraine, unspecified, not intractable, without status migrainosus; Y90.6 Blood alcohol level of 120-199 mg/100 ml; Z91.14 Patient's other noncompliance with medication regimen; Z95.0 Presence of cardiac pacemaker

== ENCOUNTER 2017-03-29 02:08 | Inpatient (IN) | payer MEDICAID ==
[2017-03-29] MEDS ORDERED: HYDROmorphone 2 mg/ml ISec SC STA ×2 (02:55→05:34)
--- NOTE | 2017-03-29 02:55 | ED PDOC ---
Arrival/HPI - General Chief Complaint: Back Pain Time Seen by Provider: 03/29/17 02:37 Historian: Patient - History of Present Illness Narrative History of Present Illness (Text): 03/29/17 02:52 51 year old male whose past medical history includes paroxysmal A-fib, arrhythmia syndrome s/p pacemaker placement, hypertension, cardiomyopathy of 31% , chronic alcoholism and peptic ulcer disease, presents to the Emergency department complaining of left lower back discomfort radiating to left lower buttock area today. Patient informs similar symptoms in the past. Patient is ambulatory with no difficulty. Patient denies any history of trauma, leg weakness, change in bowel or urinary habits, chest pain, shortness of breath, abdominal pain, fever, chills, nausea, vomiting, diarrhea or any other complaints. Time/Duration: 24 hours Symptom Course: Unchanged Quality: Aching Activities at Onset: Light Context: Home Past Medical History - Provider Review Nursing Documentation Reviewed: Yes - Past History Past History: No Previous (hx of afib, svt) - Infectious Disease Hx of Infectious Diseases: None - Tetanus Immunization Tetanus Immunization: Unknown - Cardiac Hx Cardiac Disorders: Yes (Atrial fibrillation, SVT) Hx Angina: Yes Hx Cardiac Arrhythmia: Yes Hx Congestive Heart Failure: Yes Hx Hypertension: Yes Hx Pacemaker: Yes Hx Peripheral Edema: Yes - Pulmonary Hx Respiratory Disorders: Yes (shortness of breath) - Neurological Hx Neurological Disorder: No - HEENT Hx HEENT Disorder: Yes (eyeglasses) Other/Comment: 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 related noise exposure - Renal Hx Renal Disorder: No - Endocrine/Metabolic Hx Endocrine Disorders: No - Hematological/Oncological Hx Blood Disorders: Yes Hx Anemia: Yes Other/Comment: Thrombocytopneia, leukopneia - Integumentary Hx Dermatological Disorder: No Other/Comment: tatoos, bruise to left abd and rib area, left eye orbit eccymosis fell at home 10/18/16 - Musculoskeletal/Rheumatological Hx Musculoskeletal Disorders: Yes Hx Back Pain: Yes Hx Falls: Yes Hx Fractures: Yes (Rib) Hx Unsteady Gait: Yes - Gastrointestinal Hx Gastrointestinal Disorders: Yes Hx Diverticulitis: Yes Hx Liver Failure: Yes (Abnormal Liver function test) Hx Pancreatitis: Yes - Genitourinary/Gynecological Hx Genitourinary Disorders: No - Psychiatric Hx Anxiety: Yes Hx Depression: Yes Hx Substance Use: No Other/Comment: alcohol abuse and withdrawal/ delirium - Surgical History Hx Cardiac Catheterization: Yes Other/Comment: ulcer surgery x2 - Anesthesia Hx Anesthesia: Yes Hx Anesthesia Reactions: No Hx Malignant Hyperthermia: No - Suicidal Assessment Feels Threatened In Home Enviroment: No Family/Social History - Physician Review Nursing Documentation Reviewed: Yes Family/Social History: No Known Family HX Smoking Status: Never Smoked Hx Alcohol Use: Yes (DRINKS AT LEAST 1 24 PACK OF COORS LITE A DAY. LAST DRINK [id number]) Amount per day: 6 Hx Substance Use: No Hx Substance Use Treatment: No Allergies/Home Meds Allergies/Adverse Reactions: Allergies No Known Allergies Allergy (Verified 02/05/17 12:36) Review of Systems - Physician Review All systems were reviewed & negative as marked: Yes - Review of Systems Constitutional: Normal. absent: Fevers Eyes: Normal ENT: Normal Respiratory: Normal. absent: SOB Cardiovascular: Normal. absent: Chest Pain Gastrointestinal: Normal. absent: Abdominal Pain, Stool Changes, Diarrhea, Nausea, Vomiting Genitourinary Male: Normal. absent: Urinary Output Changes Musculoskeletal: Back Pain Skin: Normal Neurological: Normal Endocrine: Normal Hemo/Lymphatic: Normal Psychiatric: Normal Physical Exam Vital Signs Reviewed: Yes Vital Signs Temp Pulse Resp BP Pulse Ox 03/29/17 02:14 98.2 F 81 18 115/74 99 Temperature: Afebrile Blood Pressure: Normal Pulse: Regular Respiratory Rate: Normal Appearance: Positive for: Well-Appearing, Non-Toxic, Comfortable, Other (No acute distress) Pain Distress: None Mental Status: Positive for: Alert and Oriented X 3 - Systems Exam Head: Present: Atraumatic, Normocephalic Pupils: Present: PERRL Extroacular Muscles: Present: EOMI Conjunctiva: Present: Normal Mouth: Present: Moist Mucous Membranes Neck: Present: Normal Range of Motion Respiratory/Chest: Present: Clear to Auscultation, Good Air Exchange. No: Respiratory Distress, Accessory Muscle Use Cardiovascular: Present: Regular Rate and Rhythm, Normal S1, S2. No: Murmurs Abdomen: Present: Normal Bowel Sounds. No: Tenderness, Distention, Peritoneal Signs Back: Present: Normal Inspection, Other (no dorsal spinal tenderness ). No: CVA Tenderness, Paraspinal Tenderness Upper Extremity: Present: Normal Inspection. No: Cyanosis, Edema Lower Extremity: Present: Normal Inspection. No: Edema, CALF TENDERNESS, Swelling Neurological: Present: GCS=15, CN II-XII Intact, Speech Normal Skin: Present: Warm, Dry, Normal Color. No: Rashes Psychiatric: Present: Alert, Oriented x 3, Normal Insight, Normal Concentration Medical Decision Making ED Course and Treatment: 03/29/17 02:59 Impression: 51 year old male presents to the Emergency department complaining of left lower back discomfort. Plan: --Dilaudid -- Reassess and disposition Progress Notes: 03/29/17 06:39 Pt. now exhibited signs of alcohol withdrawal.Labs/ekg/cxr ordered.Librium ordered. - Medication Orders Current Medication Orders: Discontinued Medications Hydromorphone HCl (Dilaudid) 1 mg SC STAT STA Stop: 03/29/17 02:56 Last Admin: 03/29/17 03:01 Dose: 1 mg OLGA Pain Assessment Document 03/29/17 03:01 AB (Rec: 03/29/17 05:01 [id number] Pain Reassessment Is this a pain reassessment? Yes Sleep Is patient sleeping during reassessment? No Presence of Pain Presence of Pain Yes Pain Scale Used Pain Scale Used Numeric Location Pain Location Body Site Leg Description Description Constant Intensity of Pain at present 10 Pain Behavior Irritability Alleviating Factors/Management Medication Techniques Subcutaneous Administrations Document 03/29/17 03:01 AB (Rec: 03/29/17 05:01 [id number] Charges for Administration # of Subcutaneous Administrations 1 Hydromorphone HCl (Dilaudid) 1 mg SC STAT STA Stop: 03/29/17 05:35 Last Admin: 03/29/17 05:53 Dose: 1 mg OLGA Pain Assessment Document 03/29/17 05:53 AB (Rec: 03/29/17 05:54 [id number] Pain Reassessment Is this a pain reassessment? Yes Sleep Is patient sleeping during reassessment? No Presence of Pain Presence of Pain Yes Pain Scale Used Pain Scale Used Numeric Location Left, Right or Bilateral Left Pain Location Body Site Leg Description Description Constant Intensity of Pain at present 8 Pain Behavior Guarding Aggravating Factors ADL's Alleviating Factors/Management Medication Techniques Alleviating Factors Medication Subcutaneous Administrations Document 03/29/17 05:53 AB (Rec: 03/29/17 05:54 AB [facility] [id number] Injection Site MAR Injection Site Left Deltoid Charges for Administration # of Subcutaneous Administrations 1 Oxycodone/Acetaminophen (Percocet 5/325 Mg Tab) 1 tab PO STAT STA Stop: 03/29/17 05:42 Last Admin: 03/29/17 05:54 Dose: 1 tab MAR Pain Assessment Document 03/29/17 05:54 AB (Rec: 03/29/17 05:54 AB [id number]) Pain Reassessment Is this a pain reassessment? Yes Sleep Is patient sleeping during reassessment? No Presence of Pain Presence of Pain Yes - Transfer of Care Patient signed out to Dr:Durga Meier Pending Labs:: Labs/ekg/cxr/reassess/admission - Scribe Statement The provider has reviewed the documentation as recorded by the Scribe Kristine Banegas. All medical record entries made by the Scribe were at my direction and personally dictated by me. I have reviewed the chart and agree that the record accurately reflects my personal performance of the history, physical exam, medical decision making, and the department course for this patient. I have also personally directed, reviewed, and agree with the discharge instructions and disposition. Disposition/Present on Arrival - Present on Arrival Any Indicators Present on Arrival: No History of DVT/PE: No History of Uncontrolled Diabetes: No History Surgical Site Infection Following: None - Disposition Have Diagnosis and Disposition been Completed?: No Diagnosis: Sciatica, Alcohol withdrawal syndrome Disposition Time: 07:00 Patient Problems: Current Active Problems Problem Status Onset Alcohol withdrawal Acute Sciatica Acute Condition: STABLE Forms: [employer] ([place])
[2017-03-29] MEDS ORDERED: Oxycodone/Acetaminophen 5/325 mg Tab PO STA (05:41)
[2017-03-29 07:30] LABS: HEMOGLOBIN 11.9 g/dL (14.0-18.0); MEAN CELL VOLUME 98.3 fl (80.0-105.0); MEAN CORPUSCULAR HEMOGLOBIN 34.1 pg (25.0-35.0); MEAN CORPUSCULAR HGB CONC 34.7 g/dl (31.0-37.0); MEAN PLATELET VOLUME 12.3 fl (7.0-11.0); RBC 3.49 10^6/uL (3.5-6.1); RED CELL DISTRIBUTION WIDTH 16.6 % (11.5-14.5); WHITE BLOOD COUNT 3.3 10^3/ul (4.5-11.0)
[2017-03-29 07:55] LABS: INR 1.1 (0.93-1.08); PARTIAL THROMBOPLASTIN TIME 34.1 Seconds (25.1-36.5); PROTHROMBIN TIME 12.7 SECONDS (9.4-12.5)
[2017-03-29 07:59] LABS: ALB/GLOB RATIO 0.9 (1.1-1.8); ALBUMIN 3.6 g/dL (3.0-4.8); ALT/SGPT 112 U/L (7-56); AST/SGOT 430 U/L (17-59); BLOOD UREA NITROGEN 2 mg/dL (7-21); CALCIUM 8.9 mg/dL (8.4-10.5); GFR AFRICAN-AMERICAN > 60; GFR NON-AFRICAN AMERICAN > 60; TROPONIN I < 0.01 ng/mL
[2017-03-29] MEDS ORDERED: diltiaZEM IVPB 100mg in NS 100 ML IV PRN ×2 (08:01→10:03)
[2017-03-29] MEDS ORDERED: Potassium Chloride 20 mEq ER Tab PO STA (08:04)
--- NOTE | 2017-03-29 09:35 | RAD ---
HISTORY: fever COMPARISON: 02/05/2017 FINDINGS: LUNGS: No active pulmonary disease. PLEURA: No significant pleural effusion identified, no pneumothorax apparent. CARDIOVASCULAR: Normal. OSSEOUS STRUCTURES: No significant abnormalities. VISUALIZED UPPER ABDOMEN: Normal. OTHER FINDINGS: Single lead pacemaker IMPRESSION: No active disease.
--- NOTE | 2017-03-29 09:43 | ED PDOC ---
Physical Exam Vital Signs Temp Pulse Resp BP Pulse Ox 03/29/17 08:13 140 H 129/89 03/29/17 07:37 98.5 F 119 H 20 129/89 92 L 03/29/17 06:09 98.3 F 72 18 121/72 99 03/29/17 04:09 98.2 F 70 16 116/72 99 03/29/17 02:14 98.2 F 81 18 115/74 99 03/29/17 02:09 98.4 F 80 16 120/82 99 Pulse: Irregular Appearance: Positive for: Non-Toxic Medical Decision Making ED Course and Treatment: 03/29/17 09:38 Patient endorsed to me from previous shift. I reviewed patient's initial presentation and patient was re-examined. Patient is found to be in atrial fibrillation with rapid ventricular rate at 0726, rate is 141 and irregular. BP stable. I also suspect component of alcohol withdrawal as he states he has been drinking regularly but no drinking since last night. ETOH level reviewed and is elevated. He denies chest pain or shortness of breath. BP stable. Denies lightheadedness or dizziness. Cardizem bolus given with improvement in heart rate to 90, irregular, although patient again became tachycardic and cardizem drip ordered. Mild tremors noted, Ativan iv ordered. Anticoagulation reviewed with admitting team, he is noncompliant with prior meds , also fall risk, bleeding risk, currently thrombocytopenic. Current plan to admit to telemetry bed, will consider upgrade to ICU if patient requires titration of drips or becomes more symptomatic. - Lab Interpretations Lab Results: 03/29/17 06:30 03/29/17 06:30 Lab Results 03/29/17 06:30: Alcohol, Quantitative 146 H 03/29/17 06:30: WBC 3.3 L, RBC 3.49 L, Hgb 11.9 L, Hct 34.3 L, MCV 98.3 D, MCH 34.1, MCHC 34.7, RDW 16.6 H, Plt Count 56 L, MPV 12.3 H 03/29/17 06:30: Sodium 139, Potassium 3.3 L, Chloride 102, Carbon Dioxide 21, Anion Gap 19, BUN 2 L, Creatinine 0.5 L, Est GFR ( Amer) > 60, Est GFR ( Non-Af Amer) > 60, Random Glucose 122 H, Calcium 8.9, Total Bilirubin 7.3 H, AST 430 H D, ALT 112 H, Alkaline Phosphatase 190 H D, Lactate Dehydrogenase 662 , Total Creatine Kinase 42, Troponin I < 0.01, Total Protein 7.8, Albumin 3.6, Globulin 4.2, Albumin/Globulin Ratio 0.9 L 03/29/17 06:30: PT 12.7 H, INR 1.10 H, APTT 34.1 - RAD Interpretation Radiology Orders: 03/29/17 06:56 CHEST PORTABLE [RAD] Stat - EKG Interpretation EKG Interpretation (Text): 03/29/17 09:44 EKG at 0726 atrial fibrillation with rapid ventricular response,rate of 141, nonspecific st and t wave abnormality Interpreted by ED Physician: Yes Type: 12 lead EKG - Medication Orders Current Medication Orders: diltiaZEM IVPB 100mg in NS (Cardizem 100mg In Ns) 100 mls @ 5 mls/hr IV .Q20H PRN; Protocol; 5 MG/HR PRN Reason: TITRATE PER MD ORDER Last Admin: 03/29/17 09:13 Dose: 5 mg/hr, 5 mls/hr eMAR Start Stop Document 03/29/17 09:13 SRE (Rec: 03/29/17 09:14 SRE [id number]) Intravenous Solution Start Date 03/29/17 Start Time 09:10 End Date 03/29/17 MAR Pulse Rate Document 03/29/17 09:13 SRE (Rec: 03/29/17 09:14 SRE [id number]) Pulse Rate Pulse Rate (60-90) 160 Titration Intervention Document 03/29/17 09:13 SRE (Rec: 03/29/17 09:14 SRE [id number]) Titration Intake Waste Amount 0 Container Volume 100 Titration Dosing Titration Dose 5 IV Rate 5 Intake/Decrease Started Discontinued Medications Chlordiazepoxide (Librium) 50 mg PO STAT STA Stop: 03/29/17 06:41 Last Admin: 03/29/17 06:53 Dose: 50 mg Diltiazem HCl (Cardizem) 15 mg IVP ONCE ONE Stop: 03/29/17 08:00 Last Admin: 03/29/17 08:13 Dose: 15 mg IVP Administration Document 03/29/17 08:13 SRE (Rec: 03/29/17 08:13 SRE [id number]) Charges for Administration # of IVP Administrations 1 MAR Pulse and Blood Pressure Document 03/29/17 08:13 SRE (Rec: 03/29/17 08:13 SRE [id number]) Pulse Pulse Rate (60-90) 140 Blood Pressure Blood Pressure (100/60-150/90) 129/89 Hydromorphone HCl (Dilaudid) 1 mg SC STAT STA Stop: 03/29/17 02:56 Last Admin: 03/29/17 03:01 Dose: 1 mg MAR Pain Assessment Document 03/29/17 03:01 AB (Rec: 03/29/17 05:01 AB [facility] [id number] Pain Reassessment Is this a pain reassessment? Yes Sleep Is patient sleeping during reassessment? No Presence of Pain Presence of Pain Yes Pain Scale Used Pain Scale Used Numeric Location Pain Location Body Site Leg Description Description Constant Intensity of Pain at present 10 Pain Behavior Irritability Alleviating Factors/Management Medication Techniques Subcutaneous Administrations Document 03/29/17 03:01 AB (Rec: 03/29/17 05:01 AB [facility] [id number]) Charges for Administration # of Subcutaneous Administrations 1 Hydromorphone HCl (Dilaudid) 1 mg SC STAT STA Stop: 03/29/17 05:35 Last Admin: 03/29/17 05:53 Dose: 1 mg [facility] Pain Assessment Document 03/29/17 05:53 AB (Rec: 03/29/17 05:54 AB [facility] [id number]) Pain Reassessment Is this a pain reassessment? Yes Sleep Is patient sleeping during reassessment? No Presence of Pain Presence of Pain Yes Pain Scale Used Pain Scale Used Numeric Location Left, Right or Bilateral Left Pain Location Body Site Leg Description Description Constant Intensity of Pain at present 8 Pain Behavior Guarding Aggravating Factors ADL's Alleviating Factors/Management Medication Techniques Alleviating Factors Medication Subcutaneous Administrations Document 03/29/17 05:53 AB (Rec: 03/29/17 05:54 AB [facility] [id number] Injection Site MAR Injection Site Left Deltoid Charges for Administration # of Subcutaneous Administrations 1 Re-Assess: MAR Pain Assessment Document 03/29/17 06:53 SRE (Rec: 03/29/17 08:32 SRE [id number]) Pain Reassessment Is this a pain reassessment? Yes Sleep Is patient sleeping during reassessment? No Presence of Pain Presence of Pain Yes Location Pain Location Body Site Back Description Description Sharp Lorazepam (Ativan) 1 mg IVP ONCE ONE Stop: 03/29/17 09:15 Last Admin: 03/29/17 09:28 Dose: 1 mg IVP Administration Document 03/29/17 09:28 SRE (Rec: 03/29/17 09:28 SRE [id number]) Charges for Administration # of IVP Administrations 1 Oxycodone/Acetaminophen (Percocet 5/325 Mg Tab) 1 tab PO STAT STA Stop: 03/29/17 05:42 Last Admin: 03/29/17 05:54 Dose: 1 tab MAR Pain Assessment Document 03/29/17 05:54 AB (Rec: 03/29/17 05:54 AB [facility] [id number]) Pain Reassessment Is this a pain reassessment? Yes Sleep Is patient sleeping during reassessment? No Presence of Pain Presence of Pain Yes Potassium Chloride (K-Dur 20 Meq Er Tab) 40 meq PO STAT STA Stop: 03/29/17 08:05 Last Admin: 03/29/17 08:31 Dose: 40 meq Disposition/Present on Arrival - Present on Arrival Any Indicators Present on Arrival: No History of DVT/PE: No History of Uncontrolled Diabetes: No Urinary Catheter: No History of Decub. Ulcer: No History Surgical Site Infection Following: None - Disposition Have Diagnosis and Disposition been Completed?: Yes Diagnosis: Sciatica, Alcohol withdrawal syndrome, Atrial fibrillation with rapid ventricular response Disposition: HOSPITALIZED Disposition Time: 08:45 Patient Plan: Admission, Telemetry Patient Problems: Current Active Problems Problem Status Onset Alcohol withdrawal Acute Sciatica Acute Condition: SERIOUS
[2017-03-29] MEDS ORDERED: Multivitamin (MVI) 10 ML, Thiamine 100 MG, Folic Acid 1 MG in Sodium Chloride 0.9% 1,00... IV ONE ×2 (09:58→13:11)
[2017-03-29] MEDS ORDERED: Digoxin 500 mcg/2ml (0.5 mg/2ml) Inj IVP STA (11:31)
--- NOTE | 2017-03-29 12:21 | CARD ---
APPROVED REPORT EKG Measurement Heart [id number] <Conclusion> Atrial fibrillation with rapid ventricular response with premature ventricular or aberrantly conducted complexes Nonspecific ST and T wave abnormality, probably digitalis effect Abnormal ECG
[2017-03-29] MEDS ORDERED: Metoprolol 1 mg/ml Inj IVP STA (13:09)
[2017-03-29] MEDS ORDERED: Digoxin 125 mcg (0.125 mg) Tab PO SCH (14:00)
[2017-03-29] MEDS: diltiaZEM IVPB 100mg in NS 100 ML IV PRN (14:14)
--- NOTE | 2017-03-29 14:41 | RAD ---
PROCEDURE: Bilateral ribs HISTORY: fall, chest wall bruising COMPARISON: TECHNIQUE: Bilateral ribs 6 views FINDINGS: There is a minimally displaced fracture of the lateral aspect of the right 7th rib. Healed fractures of the left 9th and 10th ribs are seen. There is no pneumothorax IMPRESSION: Minimally displaced fracture of the right 7th rib
[2017-03-29 14:50] VITALS: BMI 33.3
[2017-03-29] MEDS ORDERED: Pneumococcal 23-Valent Vaccine IM ONE (14:50)
[2017-03-29] MEDS ORDERED: Influenza Vaccine 60 mcg/0.5 mL SYR (4YR UP) IM ONE (14:50)
--- NOTE | 2017-03-29 15:37 | CP.PCM.HP ---
<Darnell Mooney - Last Filed: 03/29/17 19:04> History of Present Illness - History of Present Illness History of Present Illness: Chief Complaint: left lower back discomfort radiating to left lower buttocks. History of Present Illness: Patient is a 51 year old male with a past medical history of dilated cardiomyopathy s/p single chamber ventricular pacemaker placement, chronic atrial fibrillation, alcohol abuse, thrombocytopenia, peptic ulcer disease and depression who presents with complaints of bruising and chest wall pain status post slipping yesterday while getting out of the shower. Patient states he has left lower back discomfort radiating to left lower buttocks. Upon admission to emergency department patient was found to be in atrial fibrillation with rapid ventricular response. PrimaryMD: Denies Past medical history: Alcohol hepatitis, obesity status post gastric bypass Surgical history: Single chamber ventricular pacemaker placement Family History: non-contributory Social History: Alcohol abuse, denies tobacco use, denies illicit drug use Medications: refer to MAR, non compliant with medications. Present on Admission - Present on Admission Any Indicators Present on Admission: No Review of Systems - Constitutional Constitutional: absent: Chills, Fever - EENT Eyes: absent: Blurred Vision, Change in Vision - Cardiovascular Cardiovascular: absent: Chest Pain, Dyspnea - Respiratory Respiratory: absent: Cough, Hemoptysis - Gastrointestinal Gastrointestinal: absent: Abdominal Pain, Diarrhea, Dysphagia - Genitourinary Genitourinary: absent: Dysuria - Musculoskeletal Musculoskeletal: Back Pain. absent: Deformity - Neurological Neurological: absent: Dizziness, Numbness - Psychiatric Psychiatric: absent: Behavioral Changes, Change in Appetite - Hematologic/Lymphatic Hematologic: absent: Easy Bleeding, Easy Bruising Past Patient History - Infectious Disease Hx of Infectious Diseases: None - Tetanus Immunizations Tetanus Immunization: Unknown - Past Medical History & Family History Past Medical History?: Yes - Past Social History Smoking Status: Former Smoker - CARDIAC Hx Cardiac Disorders: Yes (Atrial fibrillation, SVT) Hx Angina: Yes Hx Cardia Arrhythmia: Yes Hx Congestive Heart Failure: Yes Hx Hypertension: Yes Hx Pacemaker: Yes Hx Peripheral Edema: Yes - PULMONARY Hx Respiratory Disorders: Yes (shortness of breath,CIGARETTES AND CIGAR SMOKER.OCCASIONAL) - NEUROLOGICAL Hx Neurological Disorder: Yes - HEENT Hx HEENT Problems: Yes (eyeglasses) Other/Comment: 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 related noise exposure - RENAL Hx Chronic Kidney Disease: No - ENDOCRINE/METABOLIC Hx Endocrine Disorders: No - HEMATOLOGICAL/ONCOLOGICAL Hx Blood Disorders: Yes Hx Anemia: Yes Other/Comment: Thrombocytopneia, leukopneia - INTEGUMENTARY Hx Dermatological Problems: No Other/Comment: tatoos, bruise to left abd and rib area, left eye orbit eccymosis fell at home 10/18/16 - MUSCULOSKELETAL/RHEUMATOLOGICAL Hx Musculoskeletal Disorders: Yes (RIB FX) Hx Back Pain: Yes Hx Falls: Yes Hx Fractures: Yes (Rib) Hx Unsteady Gait: Yes - GASTROINTESTINAL Hx Gastrointestinal Disorders: Yes (ACUTE PANCREATITIS) Hx Diverticulitis: Yes Hx Liver Failure: Yes (Abnormal Liver function test) Hx Pancreatitis: Yes Hx Ulcer: Yes (PUD) - GENITOURINARY/GYNECOLOGICAL Hx Genitourinary Disorders: No - PSYCHIATRIC Hx Psychophysiologic Disorder: Yes Hx Anxiety: Yes Hx Depression: Yes Hx Substance Use: No Other/Comment: alcohol abuse and withdrawal/ delirium.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 - SURGICAL HISTORY Hx Surgeries: Yes (GASTRIC BYPASS) Hx Cardiac Catheterization: Yes Other/Comment: ulcer surgery x2 - ANESTHESIA Hx Anesthesia: Yes Hx Anesthesia Reactions: No Hx Malignant Hyperthermia: No Meds Allergies/Adverse Reactions: Allergies Allergy/AdvReac Type Severity Reaction Status Date / Time No Known Allergies Allergy Verified 03/29/17 11:45 Physical Exam - Constitutional Appears: Toxic - Head Exam Head Exam: ATRAUMATIC, NORMAL INSPECTION, NORMOCEPHALIC - Eye Exam Eye Exam: EOMI, Normal appearance - ENT Exam ENT Exam: Mucous Membranes Moist, Normal Exam - Neck Exam Neck exam: Positive for: Normal Inspection - Respiratory Exam Respiratory Exam: Clear to Auscultation Bilateral, NORMAL BREATHING PATTERN. absent: Accessory Muscle Use, Rales, Rhonchi, Wheezes - Cardiovascular Exam Cardiovascular Exam: Irregular Rhythm. absent: Bradycardia - GI/Abdominal Exam GI & Abdominal Exam: Normal Bowel Sounds, Soft - Back Exam Back exam: absent: CVA tenderness (L) - Psychiatric Exam Psychiatric exam: Depressed, Normal Mood - Skin Skin Exam: Dry, Intact, Warm Results - Vital Signs Recent Vital Signs: Last Vital Signs Temp 98 F 03/29/17 14:05 Pulse 103 H 03/29/17 14:05 Resp 18 03/29/17 14:05 BP 133/84 03/29/17 14:05 Pulse Ox 96 03/29/17 10:18 - Labs Result Diagrams: 03/29/17 06:30 03/29/17 06:30 Assessment & Plan - Assessment and Plan (Free Text) Assessment: Patient is a 51 year old male with a past medical history of dilated cardiomyopathy s/p single chamber ventricular pacemaker placement, chronic atrial fibrillation, alcohol abuse, thrombocytopenia, peptic ulcer disease and depression who presents with complaints of bruising and chest wall pain status post slipping yesterday while getting out of the shower admitted to the emergency department found to be in atrial fibrillation. Plan: Atrial fibrillation with rapid ventricular response -Cardiology consulted; recommendations appreciated -Cardizem 15 IVP given in ED, followed by 0.125 digoxin qDaily -Patient transferred to telemetry; daily cardizem 10 mg IV drip started on telemetry -Metroprolol tartrate 25 BID -Fasting lipid panel, HgA1C, TSH Dilated Cardiomyopathy -Cardiology consulted -Continue with cardiac medication regimen as listed above Ecchymoses on chest wall status post fall -PT, PTT -Rib x-ray reveals minimal displacement fracture of right 7th rib -Chest x-ray reveals no new abnormalities Hypertension -BP well controlled, continue to monitor Alcohol hepatitis -Patient has a history of transaminitis; continue to monitor enzymes Thrombocytopenia -Continue to monitor, no acute intervention needed at this time Depression -Psychiatry consulted Peptic ulcer disease -Pepcid 20 mg IVP daily Alcohol intoxication -Folic Acid -Thiamine -Banana bag -Urine Drug screen -Alcohol level 146 -[facility] protocol -Ativan q6 damir, q2 as needed -Seizure precautions -Aspiration precautions -Bedrest -Fall precautions -Clear liquid diet; core blower referral -Head above bed 30 degrees -Vitals signs q2 DVT/GI prophylaxis DVT prophylaxis with SCDs only, due to history of alcohol abuse,constant injuries and falls, thrombocytopenia/ protonix <Elsie Garcia - Last Filed: 03/31/17 07:58> Results - Vital Signs Recent Vital Signs: Last Vital Signs Temp 98.8 F 03/31/17 06:00 Pulse 133 H 03/31/17 06:00 Resp 22 03/31/17 06:00 BP 164/91 H 03/31/17 06:00 Pulse Ox 99 03/31/17 06:00 - Labs Result Diagrams: 03/31/17 03:00 03/31/17 03:00 Labs: Laboratory Results - last 24 hr 0103/30/17 03/30/17 05:00 06:00 09:46 WBC RBC Hgb Hct MCV MCH MCHC RDW Plt Count MPV PT 13.9 H INR 1.20 H APTT 32.4 Sodium Potassium Chloride Carbon Dioxide Anion Gap BUN Creatinine Est GFR ( Amer) Est GFR (Non-Af Amer) Random Glucose Hemoglobin A1c 4.6 Calcium Phosphorus Magnesium Total Bilirubin Direct Bilirubin 7.3 H AST ALT Alkaline Phosphatase Total Protein Albumin Globulin Albumin/Globulin Ratio 03/31/17 03/31/17 03:00 03:00 WBC 2.9 L* D RBC 3.43 L Hgb 11.7 L Hct 34.9 L MCV 101.7 MCH 34.1 MCHC 33.5 RDW 16.6 H Plt Count 42 L* MPV 11.3 H PT INR APTT Sodium 137 Potassium 3.8 Chloride 102 Carbon Dioxide 24 Anion Gap 15 BUN 4 L Creatinine 0.5 L Est GFR ( Amer) > 60 Est GFR (Non-Af Amer) > 60 Random Glucose 105 Hemoglobin A1c Calcium 9.2 Phosphorus 1.9 L Magnesium 1.5 L Total Bilirubin 11.6 H Direct Bilirubin AST 246 H ALT 85 H Alkaline Phosphatase 199 H Total Protein 7.9 Albumin 3.6 Globulin 4.3 Albumin/Globulin Ratio 0.8 L Attending/Attestation - Attestation I have personally seen and examined this patient.: Yes I have fully participated in the care of the patient.: Yes I have reviewed all pertinent clinical information: Yes Notes (Text): 03/31/17 07:54 Attending note ; Patient seen and examined with resident in ER. Patient is a 51 year old male well-known to our service due to chronic alcohol abuse and noncompliance with follow-up with with a past medical history of dilated cardiomyopathy s/p single chamber ventricular pacemaker placement, chronic atrial fibrillation, chronic alcohol abuse, thrombocytopenia, peptic ulcer disease and depression who presents with complaints of bruising and chest wall pain status post slipping yesterday. Currently patient is in rapid A. fib; started on Cardizem drip. IV digoxin ordered. Patient is noncompliant with medications. Not taking metoprolol at home. Started on metoprolol. Monitored in telemetry closely. Alcohol abuse; continue CIWA protocol. Ativan and IV banana bag ordered. Follow-up closely. Prognosis is poor secondary to noncompliance with follow-up and continuous alcohol use. Patient has been educated multiple times about alcohol cessation. Patient was also referred to alcohol rehabilitation.
[2017-03-29] MEDS: Digoxin 125 mcg (0.125 mg) Tab PO SCH (17:30)
[2017-03-29] MEDS ORDERED: Morphine 2 mg/ml ISec IVP ONE (21:47)
--- NOTE | 2017-03-29 22:46 | CON ---
DATE: 03/29/2017 REASON FOR CONSULTATION: AFib with rapid ventricular rate, status post fall, and alcoholic intoxication. BRIEF CLINICAL HISTORY: This is a 51-year-old male with past medical history significant for paroxysmal atrial fibrillation, tachycardia, sick sinus syndrome, status post permanent pacemaker, alcoholic cardiomyopathy, multiple admissions with alcoholic intoxication, who was drinking alcohol yesterday and slipped in the shower yesterday and bruised, so he came to the Emergency Room. He denies any chest pain, shortness of breath, or any palpitation. He found to be in AFib with rapid ventricular rate and the patient was started on Cardizem drip. PAST MEDICAL HISTORY: Significant for paroxysmal atrial fibrillation, tachycardia syndrome, sick sinus syndrome, thrombocytopenia, status post permanent pacemaker, dilated cardiomyopathy secondary to alcohol abuse, history of peptic ulcer disease, not on anticoagulation because of multiple episodes of severe alcoholic intoxication and multiple episode of fall. PAST SURGICAL HISTORY: Significant for gastric bypass, multiple complication, history of peptic ulcer disease, and history of permanent pacemaker. FAMILY HISTORY: Significant for coronary artery disease, status post father with MA. SOCIAL HISTORY: Active tobacco abuse, active alcohol abuse, multiple admissions with alcoholic intoxication and fall and AFib with rapid ventricular rate. CURRENT MEDICATIONS: The patient is taking at home metoprolol 50 b.i.d., not sure was reliable taking or not. REVIEW OF SYSTEMS: As per HPI. PREVIOUS CARDIAC WORKUP: As follows; echo 05/21/2015 that shows ejection fraction 30 to 35%, [id number] mitral regurgitation, [id number] tricuspid regurgitation, and RV systolic pressure of 56. The patient had a repeat echo on 02/06/2017 that shows ejection fraction 30 to 35%, [id number] global hypokinesis, mild mitral regurgitation, mild tricuspid regurgitation dated 02/06/2017 and RV systolic pressure of 30. EKG shows AFib with rate 141. PHYSICAL EXAMINATION: VITAL SIGNS: As follows; temperature afebrile, heart rate 103, and blood pressure 133/84. HEENT: PERRLA intact. NECK: Supple. No carotids bruits or thyromegaly. LUNGS: Clear to auscultation. HEART: S1 and S2 regular. ABDOMEN: Soft. EXTREMITIES: Clubbing and cyanosis negative. LABORATORY DATA: Blood workup as follows; WBC 3.3, hemoglobin 11.9, hematocrit 34.3, and platelet count 56. Chemistry show sodium 139, potassium 3.3, chloride 102, carbon dioxide 21, anion gap of 19, BUN of 92, and creatinine 0.5. Troponin 0.01. IMPRESSION: Atrial fibrillation with rapid ventricular rate, blood alcohol level alcoholic intoxication, hypokalemia, thrombocytopenia, high risk of fall, history of fall, last echo showed ejection fraction 30% to 35%, dilated cardiomyopathy, history of permanent pacemaker, mitral regurgitation, and tricuspid regurgitation. RECOMMENDATIONS: The patient is not a candidate for a long-term anticoagulation because of history of frequent fall, history of multiple admission with alcoholic intoxication, not reliable. Continue Cardizem for now, start beta-mariusz. May consider anticoagulation with Lovenox for the patient here. Also the patient is not reliable, but since the patient has thrombocytopenia to high risk for a spontaneous bleeding. We will hold anticoagulation for now and continue Cardizem drip and once the rate is controlled, we change to p.o. I will also give metoprolol. We will follow with you. Thank you Dr. Garcia for providing us the opportunity in taking care of Elvis Ybarra. Also, we will give thiamine and cocktail for alcoholic intoxication. Tere Albrecht MD
[2017-03-30] MEDS: diltiaZEM IVPB 100mg in NS 100 ML IV PRN ×2 (00:31→11:15)
[2017-03-30 06:33] LABS: HEMOGLOBIN 10.5 g/dL (14.0-18.0); MEAN CORPUSCULAR HEMOGLOBIN 33.9 pg (25.0-35.0); MEAN CORPUSCULAR HGB CONC 33.5 g/dl (31.0-37.0); MEAN PLATELET VOLUME 11.7 fl (7.0-11.0); RBC 3.1 10^6/uL (3.5-6.1); RED CELL DISTRIBUTION WIDTH 16.9 % (11.5-14.5)
[2017-03-30 06:45] LABS: ALB/GLOB RATIO 0.8 (1.1-1.8); ALBUMIN 3.1 g/dL (3.0-4.8); ALT/SGPT 81 U/L (7-56); AST/SGOT 273 U/L (17-59); BLOOD UREA NITROGEN 4 mg/dL (7-21); CALCIUM 8.7 mg/dL (8.4-10.5); GFR AFRICAN-AMERICAN > 60; GFR NON-AFRICAN AMERICAN > 60; HDL CHOLESTEROL 27 mg/dL (29-60); MAGNESIUM 1.3 mg/dL (1.7-2.2)
[2017-03-30 06:49] LABS: LDL CHOLESTEROL 74 mg/dL (0-129)
[2017-03-30 06:52] LABS: WHITE BLOOD COUNT 2.1 10^3/ul (4.5-11.0)
[2017-03-30] MEDS: Multivitamin With Minerals Tab PO SCH (07:50)
[2017-03-30 09:19] LABS: INR 1.2 (0.93-1.08); PARTIAL THROMBOPLASTIN TIME 32.4 Seconds (25.1-36.5); PROTHROMBIN TIME 13.9 SECONDS (9.4-12.5)
[2017-03-30] MEDS ORDERED: Magnesium Sulfate 1 gm in D5W 1 GM/100 ML BAG IVPB ONE (10:08)
--- NOTE | 2017-03-30 13:14 | CP.PCM.PN ---
<Darnell Mooney - Last Filed: 03/30/17 13:23> Subjective - Date & Time of Evaluation Date of Evaluation: 03/30/17 Time of Evaluation: 07:00 - Subjective Subjective: Patient seen and examined at bedside in no acute distress. Patient still has tremors. States he is not having any pain in chest or extremities at the moment. States he will follow up with [facility] for further electrophysiology studies. Denies nausea, vomiting, diarrhea, abdominal pain, chest pain, shortness of breath, palpitations. Objective - Vital Signs/Intake and Output Vital Signs (last 24 hours): Temp Pulse Resp BP Pulse Ox 98.7 F 103 H 20 130/80 98 03/30/17 06:00 03/30/17 10:24 03/30/17 06:00 03/30/17 10:24 03/30/17 06:00 Intake and Output: 03/30/17 03/30/17 06:59 18:59 Intake Total 700 100 Output Total 700 Balance 0 100 - Medications Medications: Current Medications Digoxin (Lanoxin) 0.125 mg PO 1800 [facility] Last Admin: 03/29/17 17:30 Dose: 0.125 mg Famotidine (Pepcid) 20 mg PO DAILY [facility] diltiaZEM IVPB 100mg in NS (Cardizem 100mg In Ns) 100 mls @ 10 mls/hr IV .Q10H PRN; Protocol; 10 MG/HR PRN Reason: TITRATE PER PROTOCOL Last Admin: 03/30/17 11:15 Dose: 10 mg/hr, 10 mls/hr Lorazepam (Ativan) 2 mg IVP Q6 ALLIE PRN Reason: Protocol Last Admin: 03/30/17 11:19 Dose: 2 mg Lorazepam (Ativan) 1 mg IVP Q2 PRN; Protocol PRN Reason: Symptoms of alcohol withdrawl Last Admin: 03/29/17 12:26 Dose: 1 mg Metoprolol Tartrate (Lopressor) 25 mg PO BID [facility] Last Admin: 03/30/17 10:24 Dose: 25 mg Multivitamins/Minerals (Therapeutic-M Tab) 1 tab PO 0800 [facility] Last Admin: 03/30/17 07:50 Dose: 1 tab Thiamine HCl (Vitamin B1 Tab) 100 mg PO DAILY [facility] Last Admin: 03/30/17 10:30 Dose: 100 mg - Labs Labs: 03/30/17 05:30 03/30/17 05:30 PT 13.9 SECONDS (9.4-12.5) H 03/30/17 05:00 INR 1.20 (0.93-1.08) H 03/30/17 05:00 APTT 32.4 Seconds (25.1-36.5) 03/30/17 05:00 - Constitutional Appears: Non-toxic, No Acute Distress - Head Exam Head Exam: ATRAUMATIC, NORMAL INSPECTION, NORMOCEPHALIC - Eye Exam Eye Exam: EOMI, Normal appearance - ENT Exam ENT Exam: Mucous Membranes Moist - Neck Exam Neck Exam: Normal Inspection - Respiratory Exam Respiratory Exam: Clear to Ausculation Bilateral, NORMAL BREATHING PATTERN. absent: Rales, Rhonchi, Wheezes - Cardiovascular Exam Cardiovascular Exam: Irregular Rhythm - Neurological Exam Neurological Exam: Alert, Awake, Oriented x3 - Psychiatric Exam Psychiatric exam: Normal Affect, Normal Mood - Skin Skin Exam: Intact, Normal Color, Warm Assessment and Plan - Assessment and Plan (Free Text) Assessment: Patient is a 51 year old male with a past medical history of dilated cardiomyopathy s/p single chamber ventricular pacemaker placement, chronic atrial fibrillation, alcohol abuse, thrombocytopenia, peptic ulcer disease and depression who presents with complaints of bruising and chest wall pain status post slipping yesterday while getting out of the shower admitted to the emergency department found to be in atrial fibrillation. Plan: Atrial fibrillation with rapid ventricular response -Cardiology consulted; recommendations appreciated -Continue cardizem, digoxin, metoprolol -Fasting lipid panel HDL 27, HgA1C 4.6 , TSH 4.74 Dilated Cardiomyopathy -Cardiology consulted -Continue with cardiac medication regimen as listed above Ecchymoses on chest wall status post fall -PT 13.9, PTT 1.2 -Rib x-ray reveals minimal displacement fracture of right 7th rib; will give toradol if patient complaints of pain -Chest x-ray reveals no new abnormalities Hypertension -BP well controlled, continue to monitor Alcohol hepatitis -Patient has a history of transaminitis; liver enzymes downtrending Thrombocytopenia -Continue to monitor, no acute intervention needed at this time Depression -Psychiatry consulted Peptic ulcer disease -Pepcid 20 mg IVP daily Alcohol intoxication -Continue with folic Acid and thiamine daily -Alcohol level 146 -[facility] protocol -Ativan q6 allie, q2 as needed: continue with regimen as patient currently has tremors. -Continue with seizure precautions, spiration precautions, bedrest,fall precautions -Heart healthy diet started -Head above bed 30 degrees -Vitals signs q2 DVT/GI prophylaxis DVT prophylaxis with SCDs only, due to history of alcohol abuse,constant injuries and falls, thrombocytopenia/protonix <Shania Garcia - Last Filed: 03/30/17 14:18> Objective - Vital Signs/Intake and Output Vital Signs (last 24 hours): Temp Pulse Resp BP Pulse Ox 98.8 F 87 18 104/71 98 03/30/17 12:00 03/30/17 12:00 03/30/17 12:00 03/30/17 12:00 03/30/17 06:00 Intake and Output: 03/30/17 03/30/17 06:59 18:59 Intake Total 700 100 Output Total 700 Balance 0 100 - Medications Medications: Current Medications Digoxin (Lanoxin) 0.125 mg PO 1800 [facility] Last Admin: 03/29/17 17:30 Dose: 0.125 mg Famotidine (Pepcid) 20 mg PO DAILY [facility] Folic Acid (Folic Acid) 1 mg PO DAILY [facility] diltiaZEM IVPB 100mg in NS (Cardizem 100mg In Ns) 100 mls @ 10 mls/hr IV .Q10H PRN; Protocol; 10 MG/HR PRN Reason: TITRATE PER PROTOCOL Last Admin: 03/30/17 11:15 Dose: 10 mg/hr, 10 mls/hr Lorazepam (Ativan) 2 mg IVP Q6 ALLIE PRN Reason: Protocol Last Admin: 03/30/17 11:19 Dose: 2 mg Lorazepam (Ativan) 1 mg IVP Q2 PRN; Protocol PRN Reason: Symptoms of alcohol withdrawl Last Admin: 03/29/17 12:26 Dose: 1 mg Metoprolol Tartrate (Lopressor) 25 mg PO BID [facility] Last Admin: 03/30/17 10:24 Dose: 25 mg Multivitamins/Minerals (Therapeutic-M Tab) 1 tab PO 0800 [facility] Last Admin: 03/30/17 07:50 Dose: 1 tab Thiamine HCl (Vitamin B1 Tab) 100 mg PO DAILY [facility] Last Admin: 03/30/17 10:30 Dose: 100 mg - Labs Labs: 03/30/17 05:30 03/30/17 05:30 PT 13.9 SECONDS (9.4-12.5) H 03/30/17 05:00 INR 1.20 (0.93-1.08) H 03/30/17 05:00 APTT 32.4 Seconds (25.1-36.5) 03/30/17 05:00 Attending/Attestation - Attestation I have personally seen and examined this patient.: Yes I have fully participated in the care of the patient.: Yes I have reviewed all pertinent clinical information, including history, physical exam and plan: Yes Notes (Text): 03/30/17 14:13 51 year old male with past medical history of chronic ETOH abuse, dilated cardiomyopathy s/p PPM, afib, and history of peptic ulcer disease who presented with palpitations and alcohol withdrawal. Patient is currently on cardizem drip, lopressor and digoxin. Cardiology is following the patient. He was counselled on alcohol abstinence. Continue with ativan allie/prn for withdrawal symptoms. Pancytopenia and transaminitis noted; likely secondary to chronic ETOH abuse. Will continue to monitor. Will replete and repeat lytes. Shania Garcia MD Hospitalist.
--- NOTE | 2017-03-30 16:25 | CP.PCM.CON ---
History of Present Illness - History of Present Illness History of Present Illness: Critical Care Consult Note HPI Pt is 51yo male with PMHx of EtOH abuse, alcoholic hepatitis, dilated CM, presented with rapid afib and etoh withdrawal. RN noted patients CIWA score to 35, ICU consulted. Pt is currently awake, alert, NAD, speaking full sentences, in NAD, comfortable with mild tremors, afebrile, HD stable, with no major complaints. Ativan 4mg IV x 1 given. PMHX alcohol hepatitis, obesity status post gastric bypass Surgical history: Single chamber ventricular pacemaker placement Family History: non-contributory Social History: Alcohol abuse, denies tobacco use, denies illicit drug use Medications: refer to MAR Review of Systems - Review of Systems Review of Systems: as per HPI Past Patient History - Infectious Disease Hx of Infectious Diseases: None - Tetanus Immunizations Tetanus Immunization: Unknown - Past Medical History & Family History Past Medical History?: Yes - Past Social History Smoking Status: Former Smoker - CARDIAC Hx Cardiac Disorders: Yes (Atrial fibrillation, SVT) Hx Angina: Yes Hx Cardia Arrhythmia: Yes Hx Congestive Heart Failure: Yes Hx Hypertension: Yes Hx Pacemaker: Yes Hx Peripheral Edema: Yes - PULMONARY Hx Respiratory Disorders: Yes (shortness of breath,CIGARETTES AND CIGAR SMOKER.OCCASIONAL) - NEUROLOGICAL Hx Neurological Disorder: Yes - HEENT Hx HEENT Problems: Yes (eyeglasses) Other/Comment: 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 related noise exposure - RENAL Hx Chronic Kidney Disease: No - ENDOCRINE/METABOLIC Hx Endocrine Disorders: No - HEMATOLOGICAL/ONCOLOGICAL Hx Blood Disorders: Yes Hx Anemia: Yes Other/Comment: Thrombocytopneia, leukopneia - INTEGUMENTARY Hx Dermatological Problems: No Other/Comment: tatoos, bruise to left abd and rib area, left eye orbit eccymosis fell at home 10/18/16 - MUSCULOSKELETAL/RHEUMATOLOGICAL Hx Musculoskeletal Disorders: Yes (RIB FX) Hx Back Pain: Yes Hx Falls: Yes Hx Fractures: Yes (Rib) Hx Unsteady Gait: Yes - GASTROINTESTINAL Hx Gastrointestinal Disorders: Yes (ACUTE PANCREATITIS) Hx Diverticulitis: Yes Hx Liver Failure: Yes (Abnormal Liver function test) Hx Pancreatitis: Yes Hx Ulcer: Yes (PUD) - GENITOURINARY/GYNECOLOGICAL Hx Genitourinary Disorders: No - PSYCHIATRIC Hx Psychophysiologic Disorder: Yes Hx Anxiety: Yes Hx Depression: Yes Hx Substance Use: No Other/Comment: alcohol abuse and withdrawal/ delirium.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 [employer] - SURGICAL HISTORY Hx Surgeries: Yes (GASTRIC BYPASS) Hx Cardiac Catheterization: Yes Other/Comment: ulcer surgery x2 - ANESTHESIA Hx Anesthesia: Yes Hx Anesthesia Reactions: No Hx Malignant Hyperthermia: No Meds Allergies/Adverse Reactions: Allergies Allergy/AdvReac Type Severity Reaction Status Date / Time No Known Allergies Allergy Verified 03/29/17 11:45 - Medications Medications: Current Medications Digoxin (Lanoxin) 0.125 mg PO 1800 [facility] Last Admin: 03/29/17 17:30 Dose: 0.125 mg Famotidine (Pepcid) 20 mg PO DAILY [facility] Folic Acid (Folic Acid) 1 mg PO DAILY [facility] Last Admin: 03/30/17 16:04 Dose: Not Given diltiaZEM IVPB 100mg in NS (Cardizem 100mg In Ns) 100 mls @ 10 mls/hr IV .Q10H PRN; Protocol; 10 MG/HR PRN Reason: TITRATE PER PROTOCOL Last Admin: 03/30/17 11:15 Dose: 10 mg/hr, 10 mls/hr Lorazepam (Ativan) 1 mg IVP Q2 PRN; Protocol PRN Reason: Symptoms of alcohol withdrawl Last Admin: 03/30/17 15:22 Dose: 1 mg Lorazepam (Ativan) 2 mg IVP Q4 [facility] PRN Reason: Protocol Metoprolol Tartrate (Lopressor) 25 mg PO BID [facility] Last Admin: 03/30/17 10:24 Dose: 25 mg Multivitamins/Minerals (Therapeutic-M Tab) 1 tab PO 0800 [facility] Last Admin: 03/30/17 07:50 Dose: 1 tab Thiamine HCl (Vitamin B1 Tab) 100 mg PO DAILY [facility] Last Admin: 03/30/17 10:30 Dose: 100 mg Physical Exam - Constitutional Appears: Non-toxic, No Acute Distress - Head Exam Head Exam: NORMAL INSPECTION - Eye Exam Eye Exam: Scleral icterus - ENT Exam ENT Exam: Mucous Membranes Moist - Respiratory Exam Respiratory Exam: Clear to Auscultation Bilateral, NORMAL BREATHING PATTERN - Cardiovascular Exam Cardiovascular Exam: REGULAR RHYTHM, +S1, +S2 - GI/Abdominal Exam GI & Abdominal Exam: Normal Bowel Sounds, Soft - Extremities Exam Extremities exam: Positive for: normal inspection Results - Vital Signs Recent Vital Signs: Last Vital Signs Temp 98.8 F 03/30/17 12:00 Pulse 87 01/11/18 14:00 Resp 18 03/30/17 12:00 BP 104/71 03/30/17 12:00 Pulse Ox 98 03/30/17 06:00 - Labs Result Diagrams: 03/30/17 05:30 03/30/17 05:30 Labs: Laboratory Results - last 24 hr 03/30/17 03/30/17 03/30/17 05:00 05:30 05:30 WBC 2.1 L* D RBC 3.10 L Hgb 10.5 L Hct 31.3 L MCV 101.0 MCH 33.9 MCHC 33.5 RDW 16.9 H Plt Count 38 L* MPV 11.7 H PT 13.9 H INR 1.20 H APTT 32.4 Sodium 133 Potassium 3.7 Chloride 101 Carbon Dioxide 24 Anion Gap 11 BUN 4 L Creatinine 0.4 L Est GFR ( Amer) > 60 Est GFR (Non-Af Amer) > 60 Random Glucose 90 Hemoglobin A1c Calcium 8.7 Phosphorus 2.6 Magnesium 1.3 L Total Bilirubin 8.7 H Direct Bilirubin AST 273 H D ALT 81 H Alkaline Phosphatase 183 H Total Protein 7.0 Albumin 3.1 Globulin 3.9 Albumin/Globulin Ratio 0.8 L Triglycerides 89 Cholesterol 124 L LDL Cholesterol Direct 74 HDL Cholesterol 27 L TSH 3rd Generation 03/30/17 03/30/17 03/30/17 06:00 06:30 09:46 WBC RBC Hgb Hct MCV MCH MCHC RDW Plt Count MPV PT INR APTT Sodium Potassium Chloride Carbon Dioxide Anion Gap BUN Creatinine Est GFR ( Amer) Est GFR (Non-Af Amer) Random Glucose Hemoglobin A1c 4.6 Calcium Phosphorus Magnesium Total Bilirubin Direct Bilirubin 7.3 H AST ALT Alkaline Phosphatase Total Protein Albumin Globulin Albumin/Globulin Ratio Triglycerides Cholesterol LDL Cholesterol Direct HDL Cholesterol TSH 3rd Generation 4.74 H Assessment & Plan - Assessment and Plan (Free Text) Assessment: 51yo male with EtOH withdrawal EtOh withdrawal Afib Dilated DM s/p PPM - currently afebrile, HD stable, comfortable, Awake, alert, NAD, mild tremors s/ p Ativan 4mg IV x 1,speaking full sentences, no evidence of diaphoresis CIWA score 5 - cont with Ativan PRN - IVF hydration - rate control - follow up cardiology, A/C as per cardiology - Thiamine, Folic Acid, MVT - stable, monitor on telemetry
[2017-03-30] MEDS ORDERED: Digoxin 500 mcg/2ml (0.5 mg/2ml) Inj IVP ONE (17:50)
--- NOTE | 2017-03-30 18:15 | CARD ---
APPROVED REPORT EKG Measurement Heart [id number] <Conclusion> Atrial fibrillation Abnormal ECG
[2017-03-30] MEDS: Digoxin 125 mcg (0.125 mg) Tab PO SCH (19:12)
--- NOTE | 2017-03-30 23:22 | CP.PCM.PN ---
Subjective - Date & Time of Evaluation Date of Evaluation: 03/30/17 Time of Evaluation: 10:55 - Subjective Subjective: pt needs angiocath insertion . Objective - Vital Signs/Intake and Output Vital Signs (last 24 hours): Temp Pulse Resp BP Pulse Ox 97.2 F L 90 20 138/92 H 98 03/30/17 18:00 03/30/17 18:00 03/30/17 18:00 03/30/17 18:00 03/30/17 06:00 Intake and Output: 03/30/17 03/31/17 18:59 06:59 Intake Total 400 Output Total 600 Balance -200 - Medications Medications: Current Medications Digoxin (Lanoxin) 0.125 mg PO 1800 [facility] Last Admin: 03/30/17 19:12 Dose: Not Given Famotidine (Pepcid) 20 mg PO DAILY [facility] Folic Acid (Folic Acid) 1 mg PO DAILY [facility] Last Admin: 03/30/17 16:04 Dose: Not Given Lorazepam (Ativan) 1 mg IVP Q2 PRN; Protocol PRN Reason: Symptoms of alcohol withdrawl Last Admin: 03/30/17 22:22 Dose: 1 mg Lorazepam (Ativan) 2 mg IVP Q4 ALLIE PRN Reason: Protocol Last Admin: 03/30/17 20:15 Dose: 2 mg Metoprolol Tartrate (Lopressor) 50 mg PO BID [facility] Last Admin: 03/30/17 19:13 Dose: Not Given Multivitamins/Minerals (Therapeutic-M Tab) 1 tab PO 0800 [facility] Last Admin: 03/30/17 07:50 Dose: 1 tab Thiamine HCl (Vitamin B1 Tab) 100 mg PO DAILY [facility] Last Admin: 03/30/17 10:30 Dose: 100 mg Verapamil HCl (Calan Tab) 40 mg PO TID [facility] Last Admin: 03/30/17 19:10 Dose: Not Given Verapamil HCl (Verapamil Inj) 2.5 mg IVP Q4H PRN PRN Reason: for heart rate >140 - Labs Labs: 03/30/17 05:30 03/30/17 05:30 PT 13.9 SECONDS (9.4-12.5) H 03/30/17 05:00 INR 1.20 (0.93-1.08) H 03/30/17 05:00 APTT 32.4 Seconds (25.1-36.5) 03/30/17 05:00 Assessment and Plan - Assessment and Plan (Free Text) Assessment: 20 guage angiocath inserted in left foot.
[2017-03-31] MEDS: diltiaZEM IVPB 100mg in NS 100 ML IV PRN ×3 (01:12→19:50)
[2017-03-31 03:11] LABS: HEMOGLOBIN 11.7 g/dL (14.0-18.0); MEAN CELL VOLUME 101.7 fl (80.0-105.0); MEAN CORPUSCULAR HEMOGLOBIN 34.1 pg (25.0-35.0); MEAN CORPUSCULAR HGB CONC 33.5 g/dl (31.0-37.0); MEAN PLATELET VOLUME 11.3 fl (7.0-11.0); RBC 3.43 10^6/uL (3.5-6.1); RED CELL DISTRIBUTION WIDTH 16.6 % (11.5-14.5)
[2017-03-31 03:19] LABS: WHITE BLOOD COUNT 2.9 10^3/ul (4.5-11.0)
--- NOTE | 2017-03-31 03:31 | PN ---
DATE: 03/30/2017 REASON FOR CONSULTATION: Followup AFib with rapid ventricular rate, status post fall, alcoholic intoxication. SUBJECTIVE: Denies any chest pain. PHYSICAL EXAMINATION: VITAL SIGNS: Heart rate 140 and blood pressure 133/82. HEENT: PERRLA intact. NECK: Supple. No carotid bruits or thyromegaly. CHEST: Clear to auscultation. HEART: S1 and S2, regular. ABDOMEN: Soft. EXTREMITIES: Clubbing and cyanosis negative. LABORATORY DATA: Blood workup as follows: WBC 2.1, hemoglobin 10.1, hematocrit 31.3, and platelet count 38. Chemistry shows sodium 130, potassium 3.3, chloride 101, carbon dioxide 24, anion gap of 11, BUN 4, creatinine 0.1. Blood alcohol level on admission was elevated. IMPRESSION: Acute alcoholic intoxication, status post fall, atrial fibrillation, dilated cardiomyopathy nonischemic, status post permanent pacemaker. Last echo showed ejection fraction 35%, dilated cardiomyopathy, history of permanent pacemaker, mitral regurgitation, tricuspid regurgitation. RECOMMENDATIONS: Continue Cardizem and add digoxin. Metoprolol was increased to 50 b.i.d. Now, the patient had a pacemaker , so we will increase metoprolol to 50 b.i.d. We will give one dose of digoxin now and the patient is not on anticoagulation because of thrombocytopenia and high risk of fall, history of multiple fall. We will follow with you. We will start verapamil 40 t.i.d. for and discontinue Cardizem one hour after the first dose of verapamil p.o. We will follow with you. We will write in the physician communication that discontinue Cardizem one hour after first dose of verapamil. Thank you Dr. Garcia for providing me the opportunity in taking care of the patient, Elvis Ybarra. Tere Albrecht MD
[2017-03-31 04:25] LABS: ALB/GLOB RATIO 0.8 (1.1-1.8); ALBUMIN 3.6 g/dL (3.0-4.8); ALT/SGPT 85 U/L (7-56); AST/SGOT 246 U/L (17-59); BLOOD UREA NITROGEN 4 mg/dL (7-21); CALCIUM 9.2 mg/dL (8.4-10.5); GFR AFRICAN-AMERICAN > 60; GFR NON-AFRICAN AMERICAN > 60; MAGNESIUM 1.5 mg/dL (1.7-2.2)
--- NOTE | 2017-03-31 05:06 | CON ---
DATE: 03/30/2017 PRESENTATION: The patient is a 51-year-old male seen at bedside. He is hospitalized at this time for a left lower back discomfort radiating to left lower buttocks. He was brought to the emergency room and found to be in atrial fibrillation with rapid ventricular response. He has a history of dilated cardiomyopathy. He has a single chamber ventricular pacemaker, orthopnea, peptic ulcer disease. Additionally, he has a very long history of alcohol dependency and has been seen multiple times here at [facility] for treatments. Consultation today was called for concerns about patient has been alone and his chronic alcohol abuse. Patient is pleasant, and upon admission, he indicates that he is still heavily going through DTs. He is very very shaky. He has been managed with lorazepam 1 mg IV push every 2 hours as needed, lorazepam 2 mg IV push every 4 hours as needed, folic acid, multivitamins, thiamine. Medically, he is on Lopressor, digoxin, diltiazem, and Pepcid. Patient is extremely honest in terms of his alcoholism, and looking through his old records, he has been on multiple times in the emergency room for complications related to his alcoholism. He that he drinks 24 x 7 as much as he can drink, he drinks. He constantly drinks beer because anything else tips off his atrial fibrillation, so this is how he handles it. He has been to rehabilitation multiple times, 6 times, the last was 1-1/2 years ago at [place], [place], and many many detox, one of which was [facility]. He has never been able to remain sober. As soon as he gets back, he starts drinking. 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 When his father , he left money to support this patient in his will so that he would not have to continue working as a cleaner industrial. Patient indicates that his drinking though has been problematic, has been worse since father 1-1/2 years ago of liver cancer. His mother had sometime early of ovarian cancer, and he is the only child. He has a large extended family, an uncle and others that are very involved with him, but no one has been able to help him not drink, and the patient does not seem that he himself be able to change. At this time, though he indicates to me that he is ready to make a brand new start and is thinking about possibly going on antidepressant as he was offered one in the past by Dr. Castillo when he was hospitalized on the psychiatric unit on 11/06/2014. On review of those records, the patient was admitted for choosing a high lethality method for thoughts of suicide. Evidently, his family recreationally hunts. There were lots of guns available and patient was talking about shooting himself. During the time, he was on the unit, a family member removed the guns. I questioned the patient as to whether they have ever been returned, he said he has not been hunting, and no they have not been returned as his uncle has all the guns locked up at his house so that is no longer an issue. Patient lives alone with his limited social contacts and drinks "nonstop." Patient indicates that he has never used any drugs. He started drinking alcohol at age 20, but really it only got worse in the last 5 years, and then in particular, when his father , his alcoholism went off the way out. 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 His only other legal issues he has had is that his ex- has taken him to court for child support several times and that situation has all been resolved, there are no other issues. Patient denies any family psychiatric history. He has never served in the , and he grew up on very own. He was the only child, had a great relationships with both of his parents, had a happy childhood, a lot of cousins in his family that he has been close to, and he indicated he did well in school. He had lots of friends and was very social. He did graduate high school and completed 3 years of [employer] and then he went into business with his dad. His dad owned his own [employer] business and was quite successful. Patient enjoyed that type of work and indicated that this was a good life for him. Patient got at some point after college, he has 2 daughters, both girls 18 and 19 years old. Both of them are in college and are successful; however, he does not have any contacts with the girls due to the acrimonious relationship with his ex-. He has been for 11 years. His father had left him financially cared for, so he does not need to work nor does he need to worry about money. PAST MEDICAL HISTORY: Medically, patient has a history of gastric bypass, atrial fibrillation since he was 15 years old, and he has been operated in the past for 2 ulcers. PHYSICAL EXAMINATION: VITAL SIGNS: Current vital signs include temperature of 98.8, pulse rate of 87, blood pressure 104/71, and respirations of 18. LABORATORY DATA: In terms of his hematology, his white blood cell from today are down to 2.1, platelet count is down to 38, and patient continues to have physical symptoms of withdrawal. MENTAL STATUS EXAM: The patient is alert and oriented x3. His eye contact is good. His behavior is cooperative. His speech rate and volume are within normal limits. His mood is euthymic. His affect is full. His thoughts are goal directed. He denies being suicidal or homicidal. He indicates that he was hallucinating early around his withdrawal, but at this point, his sensorium is more clear. He has no audio or visual hallucinations. He indicates that the police has been to his house several times when he was withdrawing all around so he is familiar with this experience. He denies presence of delusions or paranoia. His concentration and focus are fair. 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 His appetite and his sleep are not normalized. He has a lot of gastric upset, and his sleep is always poor, he says due to his chronic alcoholism. DIAGNOSTIC IMPRESSION: Alcohol use disorder, severe; chronic ongoing mood disorder, unspecified. PLAN: Patient is not suicidal or homicidal and does not appear in any imminent danger for himself or others. However, he has chronic ongoing alcoholism which at this point is life threatening. He has some insight into this. We will continue to follow while in the hospital. Patient indicates that he may be willing to take antidepressants. At some point, we will prefer to have the patient on the unit to observe him if we are going to initiate the antidepressants so he can be cared for properly, and hopefully, get a better discharge plan in terms of support for his alcoholism or possibility of a rehab. We will continue to follow. Thank you for the consult. This patient was discussed with Dr. Castillo. Alison Russo APN
[2017-03-31] MEDS ORDERED: Magnesium Sulfate 1 gm in D5W 1 GM/100 ML BAG IVPB ONE (05:31)
--- NOTE | 2017-03-31 07:47 | CP.PCM.PN ---
<Darnell Mooney - Last Filed: 03/31/17 17:04> Subjective - Date & Time of Evaluation Date of Evaluation: 03/31/17 Time of Evaluation: 07:44 - Subjective Subjective: Patient seen and examined at bedside watching television with his one to one. Patient states he believes his heart rate is in sinus rhythm at the moment. Denies palpitations, chest pain, shortness of breath, abdominal pain, nausea, vomiting, diarrhea, fevers, chills. As per nursing staff patient's CIWA was a 7 overnight when asleep or really rested but aside from this CIWA in high twenties. Nursing staff states overnight patient's heart rate in 180s-220s. Patient also pulled out intravenous access from arms; now IV has been placed in patient's right foot. Objective - Vital Signs/Intake and Output Vital Signs (last 24 hours): Temp Pulse Resp BP Pulse Ox 98.8 F 133 H 22 164/91 H 99 03/31/17 06:00 03/31/17 06:00 03/31/17 06:00 03/31/17 06:00 03/31/17 06:00 Intake and Output: 03/31/17 03/31/17 06:59 18:59 Intake Total 210 Balance 210 - Medications Medications: Current Medications Digoxin (Lanoxin) 0.25 mg PO 1800 DAMIR Famotidine (Pepcid) 20 mg PO DAILY [facility] Folic Acid (Folic Acid) 1 mg PO DAILY [facility] Last Admin: 03/30/17 16:04 Dose: Not Given diltiaZEM IVPB 100mg in NS (Cardizem 100mg In Ns) 100 mls @ 15 mls/hr IV .Q6H40M PRN; Protocol; 15 MG/HR PRN Reason: TITRATE PER MD ORDER Last Admin: 03/31/17 01:12 Dose: 15 mg/hr, 15 mls/hr Lorazepam (Ativan) 1 mg IVP Q2 PRN; Protocol PRN Reason: Symptoms of alcohol withdrawl Last Admin: 03/31/17 06:07 Dose: 1 mg Lorazepam (Ativan) 2 mg IVP Q2 DAMIR PRN Reason: Protocol Magnesium Oxide (Mag-Ox) 400 mg PO BID [facility] Metoprolol Tartrate (Lopressor) 50 mg PO BID [facility] Last Admin: 03/30/17 19:13 Dose: Not Given Multivitamins/Minerals (Therapeutic-M Tab) 1 tab PO 0800 [facility] Last Admin: 03/30/17 07:50 Dose: 1 tab Thiamine HCl (Vitamin B1 Tab) 100 mg PO DAILY [facility] Last Admin: 03/30/17 10:30 Dose: 100 mg Verapamil HCl (Calan Tab) 40 mg PO TID [facility] Last Admin: 03/30/17 19:10 Dose: Not Given Verapamil HCl (Verapamil Inj) 2.5 mg IVP Q4H PRN PRN Reason: for heart rate >140 Last Admin: 03/31/17 03:58 Dose: 2.5 mg - Labs Labs: 03/31/17 03:00 03/31/17 03:00 PT 13.9 SECONDS (9.4-12.5) H 03/30/17 05:00 INR 1.20 (0.93-1.08) H 03/30/17 05:00 APTT 32.4 Seconds (25.1-36.5) 03/30/17 05:00 - Constitutional Appears: Confused - Head Exam Head Exam: ATRAUMATIC, NORMAL INSPECTION, NORMOCEPHALIC - Eye Exam Additional comments: scleral icterus OU - ENT Exam ENT Exam: Mucous Membranes Moist - Neck Exam Neck Exam: Normal Inspection - Respiratory Exam Respiratory Exam: Clear to Ausculation Bilateral, NORMAL BREATHING PATTERN. absent: Rhonchi, Wheezes - Cardiovascular Exam Cardiovascular Exam: Tachycardia, Irregular Rhythm - GI/Abdominal Exam GI & Abdominal Exam: Soft, Normal Bowel Sounds. absent: Tenderness - Extremities Exam Additional comments: regions of ecchymosis on lower extremities bilaterally. - Neurological Exam Neurological Exam: Altered, Awake - Skin Skin Exam: Abrasion, Intact, Warm Additional comments: Jaundiced- face, abdomen Assessment and Plan - Assessment and Plan (Free Text) Assessment: Patient is a 51 year old male with a past medical history of dilated cardiomyopathy s/p single chamber ventricular pacemaker placement, chronic atrial fibrillation, alcohol abuse, thrombocytopenia, peptic ulcer disease and depression who presents with complaints of bruising and chest wall pain status post slipping yesterday while getting out of the shower admitted to the emergency department found to be in atrial fibrillation. Plan: Atrial fibrillation with rapid ventricular response -Cardiology consulted; recommendations appreciated -Continue cardizem, digoxin, metoprolol. Digoxin dosage increased to 0.25 since atrial fibrillation is still uncontrolled. Verapamil also added. -Fasting lipid panel HDL 27, HgA1C 4.6 , TSH 4.74 Dilated Cardiomyopathy -Cardiology consulted -Continue with cardiac medication regimen as listed above Ecchymoses on chest wall status post fall -PT 13.9, PTT 1.2 -Rib x-ray reveals minimal displacement fracture of right 7th rib; not complaining of pain at the moment -Chest x-ray reveals no new abnormalities Hypertension -BP well controlled, continue to monitor Alcohol hepatitis -Patient has a history of transaminitis; liver enzymes downtrending -Child-Rodriguez score 7; Abdominal surgery sandra-operative mortality is 30%. -MELD score predicts a 6.0% estimated 3-month mortality. Hyperbilirubinemia - Total bilirubin continues to increase, currently 11.6, Direct bilirubin 7.3 - Gastroenterology consulted; awaiting recommendations Pancytopenia -secondary to alcohol abuse. Continue to monitor, no acute intervention needed at this time Depression -Psychiatry consulted Peptic ulcer disease -Pepcid 20 mg IVP daily Alcohol intoxication -Continue with folic Acid and thiamine daily -Alcohol level 146 on admission -[facility] protocol -Ativan 2 mg q2 damir, 1 mg q2 as needed: continue with regimen as patient currently has tremors. -Continue with seizure precautions, aspiration precautions, bedrest,fall precautions -Heart healthy diet started -Head above bed 30 degrees -Vitals signs q2 -Patient pulled out IV access; will have midline placed DVT/GI prophylaxis DVT prophylaxis with SCDs only, due to history of alcohol abuse,constant injuries and falls, thrombocytopenia/protonix.HAS-BLED score: risk was 5.8% , patient is at high risk for major bleeding. Patient seen and discussed with Dr. Radha Mooney PGY1 <Elsie Garcia - Last Filed: 04/01/17 14:43> Objective - Vital Signs/Intake and Output Vital Signs (last 24 hours): Temp Pulse Resp BP Pulse Ox 97.7 F 89 20 111/83 95 04/01/17 12:00 04/01/17 12:00 04/01/17 12:00 04/01/17 12:00 04/01/17 06:00 Intake and Output: 04/01/17 04/01/17 06:59 18:59 Intake Total 280 100 Balance 280 100 - Medications Medications: Current Medications Digoxin (Lanoxin) 0.25 mg PO 1800 DAMIR Last Admin: 03/31/17 18:59 Dose: 0.25 mg Diltiazem HCl (Cardizem) 60 mg PO TID [facility] Famotidine (Pepcid) 20 mg PO DAILY [facility] Last Admin: 04/01/17 10:53 Dose: 20 mg Folic Acid (Folic Acid) 1 mg PO DAILY [facility] Last Admin: 04/01/17 10:55 Dose: 1 mg Levothyroxine Sodium (Synthroid) 25 mcg PO 0600 [facility] Last Admin: 04/01/17 05:12 Dose: 25 mcg Lorazepam (Ativan) 1 mg IVP Q2 PRN; Protocol PRN Reason: Symptoms of alcohol withdrawl Last Admin: 04/01/17 14:10 Dose: 1 mg Lorazepam (Ativan) 2 mg IVP Q4 [facility] PRN Reason: Protocol Magnesium Oxide (Mag-Ox) 400 mg PO BID [facility] Last Admin: 04/01/17 10:54 Dose: 400 mg Multivitamins/Minerals (Therapeutic-M Tab) 1 tab PO 0800 [facility] Last Admin: 04/01/17 08:13 Dose: 1 tab Ondansetron HCl (Zofran Inj) 4 mg IVP Q6H PRN PRN Reason: Nausea/Vomiting Last Admin: 04/01/17 14:11 Dose: 4 mg Potassium Phos/Sodium Phos (Neutra-Phos) 1 pkt PO TID [facility] Stop: 04/01/17 23:00 Last Admin: 04/01/17 14:10 Dose: 1 pkt Quetiapine Fumarate (Seroquel) 12.5 mg PO HS [facility] PRN Reason: Protocol Last Admin: 03/31/17 21:04 Dose: Not Given Thiamine HCl (Vitamin B1 Tab) 100 mg PO DAILY [facility] Last Admin: 04/01/17 10:52 Dose: 100 mg Verapamil HCl (Calan Tab) 40 mg PO TID [facility] Last Admin: 04/01/17 10:56 Dose: 40 mg Verapamil HCl (Verapamil Inj) 2.5 mg IVP Q4H PRN PRN Reason: for heart rate >140 Last Admin: 03/31/17 03:58 Dose: 2.5 mg Ziprasidone (Geodon Inj) 10 mg IM Q12 PRN; Protocol PRN Reason: severe agitation - Labs Labs: 04/01/17 06:30 04/01/17 06:15 PT 13.9 SECONDS (9.4-12.5) H 03/30/17 05:00 INR 1.20 (0.93-1.08) H 03/30/17 05:00 APTT 32.4 Seconds (25.1-36.5) 03/30/17 05:00 Attending/Attestation - Attestation I have personally seen and examined this patient.: Yes I have fully participated in the care of the patient.: Yes I have reviewed all pertinent clinical information, including history, physical exam and plan: Yes Notes (Text): 04/01/17 14:34 Attending note; Patient seen and examined with resident HIDA scan is only. Patient is a 51 year old male with past medical history of chronic alcohol abuse, dilated cardiomyopathy s/p pacemaker placement, atrial fibrillation and history of peptic ulcer disease who presented with palpitations and alcohol withdrawal. Patient is currently on cardizem drip, and digoxin. Cardiology evaluation appreciated. Started on verapamil. Delirium; with alcohol withdrawal. Monitor closely in telemetry. ICU evaluation appreciated. Continue with ativan damir/prn for withdrawal symptoms. Psychiatric evaluation appreciated. Continue Geodon when necessary. Started on Seroquel. Pancytopenia and transaminitis noted; likely secondary to chronic ETOH abuse. Will continue to monitor. GI evaluation requested. Prognosis is poor secondary to noncompliance with follow-up and chronic alcohol abuse. 04/01/17 14:43
[2017-03-31] MEDS: Multivitamin With Minerals Tab PO SCH (08:10)
[2017-03-31] MEDS: Magnesium Oxide 400 mg Tab UD PO SCH ×2 (10:18→18:59)
[2017-03-31] MEDS ORDERED: Magnesium Sulfate 2 GM in Sodium Chloride 0.9% 100 ML IVPB ONE (15:06)
[2017-03-31] MEDS: Potassium & Sodium Phosphate PO SCH (18:58)
[2017-03-31] MEDS: Digoxin 250 mcg (0.25 mg) Tab PO SCH (18:59)
--- NOTE | 2017-03-31 19:19 | PN ---
DATE: REASON FOR CONSULTATION AND FOLLOWUP: Atrial fibrillation with rapid ventricular rate, status post fall, alcoholic intoxication, rule out DTs. SUBJECTIVE: The patient denies any chest pain or shortness of breath, one-to-one, shaking all body. OBJECTIVE: GENERAL: Not in apparent distress. VITAL SIGNS: Temperature afebrile, heart rate 84, and blood pressure 114/75. HEENT: PERRLA. Extraocular muscles intact. NECK: Supple. No carotid bruit or thyromegaly. CHEST: Clear to auscultation. HEART: S1 and S2 regular. ABDOMEN: Soft. EXTREMITIES: Clubbing and cyanosis negative. LABORATORY DATA: Blood workup as follows; WBC 2.9, hemoglobin 11.3, hematocrit 34.9, and platelet count 42. Chemistry showed sodium 137, potassium 4.3, chloride 102, carbon dioxide 24, anion gap of 15, BUN 4, and creatinine 0.5, magnesium 1.5, calcium 9.2, and phosphorus 1.9. IMPRESSION: Multiple electrolytes abnormality; impending delirium tremens; alcoholic intoxication; atrial fibrillation with rapid ventricular rate; mitral regurgitation; tricuspid regurgitation; dilated cardiomyopathy, nonischemic; sick sinus syndrome, status post permanent pacemaker; chronic atrial fibrillation, not a candidate for anticoagulation because history of multiple falls with alcoholic intoxication and recently admitted with a fall. RECOMMENDATIONS: Supplement aggressively electrolytes, started verapamil, the patient with rapid rate, restarted again on Cardizem last night. Discontinue beta-mariusz. We will further supplement electrolytes aggressively. We will follow with you. We will supplement Neutra-Phos and also give 2 gm of magnesium. Thank you Dr. Garcia for providing us the opportunity in taking care of the patient. We will follow with you. Tere Albrecht MD
[2017-04-01] MEDS: diltiaZEM IVPB 100mg in NS 100 ML IV PRN ×2 (02:34→11:42)
[2017-04-01] MEDS: Levothyroxine 25 MCG TAB PO SCH (05:12)
[2017-04-01 07:30] LABS: HEMOGLOBIN 10.7 g/dL (14.0-18.0); MEAN CELL VOLUME 103.8 fl (80.0-105.0); MEAN CORPUSCULAR HEMOGLOBIN 33.9 pg (25.0-35.0); MEAN CORPUSCULAR HGB CONC 32.6 g/dl (31.0-37.0); MEAN PLATELET VOLUME 12.3 fl (7.0-11.0); RBC 3.16 10^6/uL (3.5-6.1); RED CELL DISTRIBUTION WIDTH 17.2 % (11.5-14.5); WHITE BLOOD COUNT 3.8 10^3/ul (4.5-11.0)
[2017-04-01 07:40] LABS: ALB/GLOB RATIO 0.8 (1.1-1.8); ALBUMIN 3.1 g/dL (3.0-4.8); ALT/SGPT 65 U/L (7-56); AST/SGOT 178 U/L (17-59); BLOOD UREA NITROGEN 9 mg/dL (7-21); CALCIUM 8.8 mg/dL (8.4-10.5); GFR AFRICAN-AMERICAN > 60; GFR NON-AFRICAN AMERICAN > 60
[2017-04-01] MEDS: Multivitamin With Minerals Tab PO SCH (08:13)
[2017-04-01] MEDS ORDERED: Potassium Chloride 20 mEq ER Tab PO STA (08:28)
[2017-04-01] MEDS: Potassium & Sodium Phosphate PO SCH ×3 (10:54→18:29)
[2017-04-01] MEDS: Magnesium Oxide 400 mg Tab UD PO SCH ×2 (10:54→18:28)
--- NOTE | 2017-04-01 11:56 | CP.PCM.PN ---
<Say Ricardo - Last Filed: 04/01/17 11:53> Subjective - Date & Time of Evaluation Date of Evaluation: 04/01/17 Time of Evaluation: 11:53 - Subjective Subjective: Medicine Progress Note Pt seen and examined at bedside. Pt states he feels less tremulous. Tolerating diet well. Pt denied chest pain, shortness of breath, nausea, vomiting, diarrhea , abdominal pain, fever, chills, headache, and dizziness. Objective - Vital Signs/Intake and Output Vital Signs (last 24 hours): Temp Pulse Resp BP Pulse Ox 98.8 F 89 18 110/62 95 04/01/17 06:00 04/01/17 10:56 04/01/17 06:00 04/01/17 10:56 04/01/17 06:00 Intake and Output: 04/01/17 04/01/17 06:59 18:59 Intake Total 280 100 Balance 280 100 - Medications Medications: Current Medications Digoxin (Lanoxin) 0.25 mg PO 1800 [facility] Last Admin: 03/31/17 18:59 Dose: 0.25 mg Diltiazem HCl (Cardizem) 30 mg PO QID [facility] Last Admin: 04/01/17 10:55 Dose: 30 mg Famotidine (Pepcid) 20 mg PO DAILY [facility] Last Admin: 04/01/17 10:53 Dose: 20 mg Folic Acid (Folic Acid) 1 mg PO DAILY [facility] Last Admin: 04/01/17 10:55 Dose: 1 mg diltiaZEM IVPB 100mg in NS (Cardizem 100mg In Ns) 100 mls @ 15 mls/hr IV .Q6H40M PRN; Protocol; 15 MG/HR PRN Reason: TITRATE PER MD ORDER Last Admin: 04/01/17 11:42 Dose: 15 mg/hr, 15 mls/hr Potassium Chloride (Potassium Chloride 10 Meq/100 Ml) 10 meq in 100 mls @ 50 mls/hr IVPB Q2H [facility] Stop: 04/01/17 12:29 Last Admin: 04/01/17 10:53 Dose: 50 mls/hr Levothyroxine Sodium (Synthroid) 25 mcg PO 0600 [facility] Last Admin: 04/01/17 05:12 Dose: 25 mcg Lorazepam (Ativan) 1 mg IVP Q2 PRN; Protocol PRN Reason: Symptoms of alcohol withdrawl Last Admin: 03/31/17 06:07 Dose: 1 mg Lorazepam (Ativan) 2 mg IVP Q2 [facility] PRN Reason: Protocol Last Admin: 04/01/17 10:56 Dose: 2 mg Magnesium Oxide (Mag-Ox) 400 mg PO BID [facility] Last Admin: 04/01/17 10:54 Dose: 400 mg Metoprolol Tartrate (Lopressor) 50 mg PO BID [facility] Last Admin: 04/01/17 10:54 Dose: 50 mg Multivitamins/Minerals (Therapeutic-M Tab) 1 tab PO 0800 [facility] Last Admin: 04/01/17 08:13 Dose: 1 tab Potassium Phos/Sodium Phos (Neutra-Phos) 1 pkt PO TID [facility] Stop: 04/01/17 23:00 Last Admin: 04/01/17 10:54 Dose: 1 pkt Quetiapine Fumarate (Seroquel) 12.5 mg PO HS [facility] PRN Reason: Protocol Last Admin: 03/31/17 21:04 Dose: Not Given Thiamine HCl (Vitamin B1 Tab) 100 mg PO DAILY [facility] Last Admin: 04/01/17 10:52 Dose: 100 mg Verapamil HCl (Calan Tab) 40 mg PO TID [facility] Last Admin: 04/01/17 10:56 Dose: 40 mg Verapamil HCl (Verapamil Inj) 2.5 mg IVP Q4H PRN PRN Reason: for heart rate >140 Last Admin: 03/31/17 03:58 Dose: 2.5 mg Ziprasidone (Geodon Inj) 10 mg IM Q12 PRN; Protocol PRN Reason: severe agitation - Labs Labs: 04/01/17 06:30 04/01/17 06:15 PT 13.9 SECONDS (9.4-12.5) H 03/30/17 05:00 INR 1.20 (0.93-1.08) H 03/30/17 05:00 APTT 32.4 Seconds (25.1-36.5) 03/30/17 05:00 - Constitutional Appears: No Acute Distress - Head Exam Head Exam: NORMAL INSPECTION - Eye Exam Eye Exam: Normal appearance - ENT Exam ENT Exam: Normal Exam - Neck Exam Neck Exam: Normal Inspection - Respiratory Exam Respiratory Exam: Clear to Ausculation Bilateral. absent: Rales, Rhonchi, Wheezes - Cardiovascular Exam Cardiovascular Exam: Irregular Rhythm, +S1, +S2. absent: Gallop, Rubs, Murmur - GI/Abdominal Exam GI & Abdominal Exam: Soft. absent: Distended, Guarding, Tenderness, Rebound - Extremities Exam Extremities Exam: Normal Inspection - Back Exam Back Exam: NORMAL INSPECTION - Neurological Exam Neurological Exam: Alert, Awake - Psychiatric Exam Psychiatric exam: Normal Affect, Normal Mood - Skin Skin Exam: Dry, Intact, Normal Color, Warm Assessment and Plan - Assessment and Plan (Free Text) Assessment: Patient is a 51 year old male with a past medical history of dilated cardiomyopathy s/p single chamber ventricular pacemaker placement, chronic atrial fibrillation, alcohol abuse, thrombocytopenia, peptic ulcer disease and depression who presents with complaints of bruising and chest wall pain status post slipping yesterday while getting out of the shower admitted to the emergency department found to be in atrial fibrillation. Plan: Atrial fibrillation with rapid ventricular response -Cardiology consulted; recommendations appreciated -Continue cardizem, digoxin, verapmil -Stopped lopressor -Fasting lipid panel HDL 27, HgA1C 4.6 , TSH 4.74 Dilated Cardiomyopathy -Cardiology consulted -Continue with cardiac medication regimen as listed above Right 7th Rib Fracture -PT 13.9, PTT 1.2 -Rib x-ray reveals minimal displacement fracture of right 7th rib; not complaining of pain at the moment -Chest x-ray reveals no new abnormalities -Monitor Hypertension -BP well controlled, continue to monitor Alcohol hepatitis -Patient has a history of transaminitis; liver enzymes downtrending -Child-Rodriguez score 7; Abdominal surgery sandra-operative mortality is 30%. -MELD score predicts a 6.0% estimated 3-month mortality. Hyperbilirubinemia - Total bilirubin continues to increase, currently 11.6, Direct bilirubin 7.3 - Gastroenterology consulted; awaiting recommendations Pancytopenia -secondary to alcohol abuse. Continue to monitor, no acute intervention needed at this time Depression -Psychiatry consulted Peptic ulcer disease -Pepcid 20 mg IVP daily Alcohol intoxication -Continue with folic Acid and thiamine daily -Alcohol level 146 on admission -[facility] protocol -Ativan 2 mg q2 damir, 1 mg q2 as needed: continue with regimen as patient currently has tremors. -Geodon 10 mg IM Q12 prn for agitation -Continue with seizure precautions, aspiration precautions, bedrest,fall precautions -Heart healthy diet started -Head above bed 30 degrees -Vitals signs q2 -Patient pulled out IV access; will have midline placed DVT/GI prophylaxis DVT prophylaxis with SCDs only, due to history of alcohol abuse,constant injuries and falls, thrombocytopenia/protonix.HAS-BLED score: risk was 5.8% , patient is at high risk for major bleeding. Patient seen and discussed with Dr. Radha Ricardo, PGY1 <Elsie Garcia - Last Filed: 04/02/17 11:32> Objective - Vital Signs/Intake and Output Vital Signs (last 24 hours): Temp Pulse Resp BP Pulse Ox 98.2 F 134 H 20 109/69 98 04/02/17 06:00 04/02/17 09:36 04/02/17 06:00 04/02/17 09:36 04/02/17 06:00 Intake and Output: 04/02/17 04/02/17 06:59 18:59 Intake Total 300 Output Total 4 Balance 296 - Medications Medications: Current Medications Digoxin (Lanoxin) 0.25 mg PO 1800 [facility] Last Admin: 04/01/17 18:28 Dose: 0.25 mg Diltiazem HCl (Cardizem) 60 mg PO TID [facility] Last Admin: 04/02/17 09:36 Dose: 60 mg Famotidine (Pepcid) 20 mg PO DAILY [facility] Last Admin: 04/02/17 09:36 Dose: 20 mg Folic Acid (Folic Acid) 1 mg PO DAILY [facility] Last Admin: 04/02/17 09:36 Dose: 1 mg Levothyroxine Sodium (Synthroid) 25 mcg PO 0600 [facility] Last Admin: 04/02/17 06:18 Dose: 25 mcg Lorazepam (Ativan) 1 mg IVP Q2 PRN; Protocol PRN Reason: Symptoms of alcohol withdrawl Last Admin: 04/01/17 14:10 Dose: 1 mg Lorazepam (Ativan) 2 mg IVP Q4 [facility] PRN Reason: Protocol Last Admin: 04/02/17 08:12 Dose: 2 mg Magnesium Oxide (Mag-Ox) 400 mg PO BID [facility] Last Admin: 04/02/17 09:36 Dose: 400 mg Multivitamins/Minerals (Therapeutic-M Tab) 1 tab PO 0800 [facility] Last Admin: 04/02/17 08:11 Dose: 1 tab Ondansetron HCl (Zofran Inj) 4 mg IVP Q6H PRN PRN Reason: Nausea/Vomiting Last Admin: 04/01/17 14:11 Dose: 4 mg Quetiapine Fumarate (Seroquel) 12.5 mg PO HS [facility] PRN Reason: Protocol Last Admin: 04/01/17 22:05 Dose: 12.5 mg Thiamine HCl (Vitamin B1 Tab) 100 mg PO DAILY [facility] Last Admin: 04/02/17 09:36 Dose: 100 mg Verapamil HCl (Calan Tab) 40 mg PO TID [facility] Last Admin: 04/01/17 14:00 Dose: Not Given Verapamil HCl (Verapamil Inj) 2.5 mg IVP Q4H PRN PRN Reason: for heart rate >140 Last Admin: 03/31/17 03:58 Dose: 2.5 mg Ziprasidone (Geodon Inj) 10 mg IM Q12 PRN; Protocol PRN Reason: severe agitation - Labs Labs: 04/02/17 06:30 04/02/17 06:30 PT 13.9 SECONDS (9.4-12.5) H 03/30/17 05:00 INR 1.20 (0.93-1.08) H 03/30/17 05:00 APTT 32.4 Seconds (25.1-36.5) 03/30/17 05:00 Attending/Attestation - Attestation I have personally seen and examined this patient.: Yes I have fully participated in the care of the patient.: Yes I have reviewed all pertinent clinical information, including history, physical exam and plan: Yes Notes (Text): 04/02/17 11:29 Attending note; Patient seen and examined with resident. Patient is a 51 year old male with past medical history of chronic alcohol abuse, dilated cardiomyopathy s/p pacemaker placement, atrial fibrillation and history of peptic ulcer disease who presented with palpitations and alcohol withdrawal. A. fib; rate control. Cardizem drip discontinued. Currently on by mouth Cardizem , verapamil and digoxin. Cardiology evaluation appreciated. Delirium; with alcohol withdrawal. Monitor closely in telemetry. Continue with ativan damir/prn for withdrawal symptoms. Psychiatric evaluation appreciated. Continue Geodon when necessary. Started on Seroquel. Pancytopenia and transaminitis noted; likely secondary to chronic ETOH abuse. Will continue to monitor. GI evaluation appreciated. Mental status is improving. Ammonia level is normal. Prognosis is poor secondary to noncompliance with follow-up and chronic alcohol abuse.
[2017-04-01] MEDS ORDERED: Potassium Chloride 20 mEq ER Tab PO ONE (17:14)
[2017-04-01] MEDS: Digoxin 250 mcg (0.25 mg) Tab PO SCH (18:28)
--- NOTE | 2017-04-01 21:54 | PN ---
DATE: 04/01/2017 LOCATION: Patient is in room #272, bed 1. REASON FOR CONSULTATION: Atrial fibrillation, rapid rate, status post fall; alcohol intoxication, DTs. SUBJECTIVE: Patient is conscious and alert now. Denies any chest pain, shortness of breath, or palpitations. PHYSICAL EXAMINATION VITAL SIGNS: Blood pressure is 111/83, respirations 20, pulse 89, temperature 97.7. HEENT: Head: Normocephalic. Eyes: Pupils are normal. Conjunctivae slightly pale. NECK: JVP low. Carotids equal. THORAX: AP diameter normal. LUNGS: Clear. CARDIOVASCULAR: S1 and S2. ABDOMEN: Soft. No tenderness. No organomegaly. Bowel sounds normal. EXTREMITIES: No clubbing. No cyanosis. LABORATORY DATA: WBC 3.8; hemoglobin 10.7, hematocrit 32.8, platelets 52. Sodium 139, potassium 3.2, BUN 9, creatinine 0.5. AST 178, ALT 65, alkaline phosphatase 157. Total protein and albumin are normal. TSH is 4.74. DIAGNOSES: Alcoholic intoxication; atrial fibrillation with rapid ventricular rate, today the rate has slowed down; mitral regurgitation; tricuspid regurgitation; dilated cardiomyopathy; nonischemic type, sick sinus syndrome, status post permanent pacemaker insertion; chronic atrial fibrillation, not a candidate for anticoagulation because of history of multiple falls; alcohol intoxication, also the patient has anemia, low platelet count. Patient is a very poor compliant patient and will not follow up regularly PT/INR. Hypokalemia. RECOMMENDATION AND PLAN: Gait therapy. Patient's heart rate has slowed down, so we will discontinue the Cardizem drip and we will put Cardizem at 60 mg p.o. t.i.d. Patient' verapamil will be put on hold. Folic acid 1 mg daily. Patient received potassium 40 mEq p.o. today extra, digoxin 0.25 daily, magnesium 400 mg b.i.d., Pepcid 20 daily, Synthroid 25 mcg daily, thiamine 100 daily. We will repeat labs in the morning. We will give an additional 20 mEq of potassium p.o. now and we will follow with you. Tere Collins MD [facility] # [id number]
--- NOTE | 2017-04-01 23:09 | CON ---
DATE: HISTORY OF PRESENT ILLNESS: The patient is a 51-year-old white male who has a long history of alcohol dependency and has been seen by Psychiatry on the medical floor due to symptoms of DT's associated with agitation and hallucinations on the unit. I reviewed Alison Russo APN's note. I spoke with nursing and with the patient at the bedside today. The patient is calmer this morning and he is oriented to location, month, and year. He is aware of his confusion and agitation, and he also reports still having visual hallucinations every so often; however, currently he denies having those as well as auditory hallucinations. He reports that he has been depressed. However, he is not suicidal or homicidal. His main complaint today is sciatica pain which he wants Demerol for. He does not appear to be responding to internal stimuli, and most of his responses are relevant and inconsistent, although he does sometimes respond illogically. He denies having any other discomfort except for his sciatica at this time and still requires 1:1 due to his poor impulse control and unpredictability. PHYSICAL EXAMINATION: VITAL SIGNS: Reviewed by his provider. LABORATORY DATA: Recent laboratory results were also reviewed by this provider. His transaminitis appears to be improving. RELEVANT PSYCHIATRIC MEDICATIONS: Include Ativan 1 mg IV q. 2 hours p.r.n. which the patient received 3 doses yesterday, then we had Ativan 2 mg IV q. 2 hours p.r.n. of which the patient received 6 doses today thus far, Seroquel 12.5 mg at bedtime scheduled. The patient refused Seroquel last night and Geodon 10 mg IM q. 12 h. p.r.n. IMPRESSION: Alcohol withdrawal delirium tremens; alcohol use disorder, severe; and mood disorder, not otherwise specified. PLAN: At this time, we will continue with Ativan at 1 mg IV q. 2 h. p.r.n.; however, we will decrease frequency of starting Ativan as this can disinhibited and worsen confusion. We will decrease to 2 mg IV q. 4 h. schedule. We will also continue with Geodon 10 mg IM q. 12 h. p.r.n. Please try to use Geodon as necessary every 12 hours in view of Ativan if the patient is agitated as we do not want the patient to go into benzo delirium. Minimize use of benzos first and far most in favor of Geodon IM. Psychiatry will continue to follow up and monitor the patient and his tolerance of medications, mental status, and behavior. Mandy French MD
[2017-04-02] MEDS: Levothyroxine 25 MCG TAB PO SCH (06:18)
--- NOTE | 2017-04-02 06:41 | PN ---
DATE: 04/02/2017 SUBJECTIVE: This is a 51-year-old white male with history of alcohol abuse, admitted for the same, evaluated on telemetry unit. The patient experienced no complaints of dysphagia, bleeding, epigastric pain, nausea, vomiting, hematemesis, or rapid breathing. PHYSICAL EXAMINATION VITAL SIGNS: I reviewed this patient's vital signs. HEENT: Noncontributory. LUNGS: Clear to auscultation. HEART: Irregular rhythm. ABDOMEN: Soft. No tenderness elicited. LABORATORY DATA: Reviewed this patient's laboratory data. Bilirubin is down, transaminase is decreasing, most recent 178/65 AST /ALT ratio, alkaline phosphatase 157, bilirubin roughly 11.5 total with a direct of 7.3. Again, the transaminase ratio is decreasing. I read the notes of respective consultants. OVERALL ASSESSMENT: A 51-year-old white male with history of alcohol abuse, admitted for same, treated with current medication regimen, would suggest continue to observe the LFT trends on this patient. Naseem Rossi DO, PhD JYOTI
[2017-04-02] MEDS: Multivitamin With Minerals Tab PO SCH (08:11)
[2017-04-02 08:13] LABS: ALB/GLOB RATIO 0.8 (1.1-1.8); ALT/SGPT 79 U/L (7-56); AST/SGOT 171 U/L (17-59); BLOOD UREA NITROGEN 14 mg/dL (7-21); CALCIUM 8.8 mg/dL (8.4-10.5); GFR AFRICAN-AMERICAN > 60; GFR NON-AFRICAN AMERICAN > 60; MAGNESIUM 1.8 mg/dL (1.7-2.2)
[2017-04-02 08:19] LABS: MEAN CELL VOLUME 101.6 fl (80.0-105.0); MEAN CORPUSCULAR HEMOGLOBIN 35.6 pg (25.0-35.0); MEAN PLATELET VOLUME 12.7 fl (7.0-11.0); RBC 3.09 10^6/uL (3.5-6.1); RED CELL DISTRIBUTION WIDTH 18.7 % (11.5-14.5); WHITE BLOOD COUNT 3.7 10^3/ul (4.5-11.0)
[2017-04-02] MEDS: Magnesium Oxide 400 mg Tab UD PO SCH ×2 (09:36→17:25)
--- NOTE | 2017-04-02 11:08 | CP.PCM.PN ---
<Say Ricardo - Last Filed: 04/02/17 10:53> Subjective - Date & Time of Evaluation Date of Evaluation: 04/02/17 Time of Evaluation: 10:53 - Subjective Subjective: Medicine Progress Note Pt seen and examined at bedside. Pt more calm today and is alert and oriented x3. Pt denied chest pain, shortness of breath, nausea, vomiting, diarrhea, abdominal pain, fever, chills, headache, and dizziness. Objective - Vital Signs/Intake and Output Vital Signs (last 24 hours): Temp Pulse Resp BP Pulse Ox 98.2 F 134 H 20 109/69 98 04/02/17 06:00 04/02/17 09:36 04/02/17 06:00 04/02/17 09:36 04/02/17 06:00 Intake and Output: 04/02/17 04/02/17 06:59 18:59 Intake Total 300 Output Total 4 Balance 296 - Medications Medications: Current Medications Digoxin (Lanoxin) 0.25 mg PO 1800 [facility] Last Admin: 04/01/17 18:28 Dose: 0.25 mg Diltiazem HCl (Cardizem) 60 mg PO TID [facility] Last Admin: 04/02/17 09:36 Dose: 60 mg Famotidine (Pepcid) 20 mg PO DAILY [facility] Last Admin: 04/02/17 09:36 Dose: 20 mg Folic Acid (Folic Acid) 1 mg PO DAILY [facility] Last Admin: 04/02/17 09:36 Dose: 1 mg Levothyroxine Sodium (Synthroid) 25 mcg PO 0600 [facility] Last Admin: 04/02/17 06:18 Dose: 25 mcg Lorazepam (Ativan) 1 mg IVP Q2 PRN; Protocol PRN Reason: Symptoms of alcohol withdrawl Last Admin: 04/01/17 14:10 Dose: 1 mg Lorazepam (Ativan) 2 mg IVP Q4 [facility] PRN Reason: Protocol Last Admin: 04/02/17 08:12 Dose: 2 mg Magnesium Oxide (Mag-Ox) 400 mg PO BID [facility] Last Admin: 04/02/17 09:36 Dose: 400 mg Multivitamins/Minerals (Therapeutic-M Tab) 1 tab PO 0800 [facility] Last Admin: 04/02/17 08:11 Dose: 1 tab Ondansetron HCl (Zofran Inj) 4 mg IVP Q6H PRN PRN Reason: Nausea/Vomiting Last Admin: 04/01/17 14:11 Dose: 4 mg Quetiapine Fumarate (Seroquel) 12.5 mg PO HS [facility] PRN Reason: Protocol Last Admin: 04/01/17 22:05 Dose: 12.5 mg Thiamine HCl (Vitamin B1 Tab) 100 mg PO DAILY [facility] Last Admin: 04/02/17 09:36 Dose: 100 mg Verapamil HCl (Calan Tab) 40 mg PO TID [facility] Last Admin: 04/01/17 14:00 Dose: Not Given Verapamil HCl (Verapamil Inj) 2.5 mg IVP Q4H PRN PRN Reason: for heart rate >140 Last Admin: 03/31/17 03:58 Dose: 2.5 mg Ziprasidone (Geodon Inj) 10 mg IM Q12 PRN; Protocol PRN Reason: severe agitation - Labs Labs: 04/02/17 06:30 04/02/17 06:30 PT 13.9 SECONDS (9.4-12.5) H 03/30/17 05:00 INR 1.20 (0.93-1.08) H 03/30/17 05:00 APTT 32.4 Seconds (25.1-36.5) 03/30/17 05:00 - Constitutional Appears: No Acute Distress - Head Exam Head Exam: NORMAL INSPECTION - Eye Exam Eye Exam: Normal appearance - ENT Exam ENT Exam: Normal Exam - Neck Exam Neck Exam: Normal Inspection - Respiratory Exam Respiratory Exam: Clear to Ausculation Bilateral. absent: Rales, Rhonchi, Wheezes - Cardiovascular Exam Cardiovascular Exam: RRR, +S1, +S2. absent: Gallop, Rubs, Murmur - GI/Abdominal Exam GI & Abdominal Exam: Soft. absent: Distended, Guarding, Tenderness, Rebound - Back Exam Additional comments: tremor b/l UE - Neurological Exam Neurological Exam: Alert, Awake, Oriented x3 - Psychiatric Exam Psychiatric exam: Normal Affect, Normal Mood - Skin Skin Exam: Dry, Intact, Normal Color, Warm Assessment and Plan - Assessment and Plan (Free Text) Assessment: Patient is a 51 year old male with a past medical history of dilated cardiomyopathy s/p single chamber ventricular pacemaker placement, chronic atrial fibrillation, alcohol abuse, thrombocytopenia, peptic ulcer disease and depression who presents with complaints of bruising and chest wall pain status post slipping yesterday while getting out of the shower admitted to the emergency department found to be in atrial fibrillation. Plan: Alcohol intoxication - Continue with folic Acid, MV, and thiamine daily - [facility] protocol - Ativan 2 mg q2 damir, 1 mg q2 prn - Geodon 10 mg IM Q12 prn for agitation - Continue with seizure precautions, aspiration precautions, bed rest, fall precautions - Heart healthy diet started - Head above bed 30 degrees - Vitals signs q2 Alcohol hepatitis - Patient has a history of transaminitis; liver enzymes downtrending - Child-Rodriguez score 7; Abdominal surgery sandra-operative mortality is 30%. - MELD score predicts a 6.0% estimated 3-month mortality. - Discriminant factor 20.7 Atrial fibrillation with rapid ventricular response - Cardiology consulted; recommendations appreciated - Continue cardizem, digoxin, verapmil Alcoholic Bone Marrow Supression - Pancytopenic - Cont to monitor Dilated Cardiomyopathy - Cardiology consulted - Continue with cardiac medication regimen as listed above Right 7th Rib Fracture - PT 13.9, PTT 1.2 - Rib x-ray reveals minimal displacement fracture of right 7th rib; not complaining of pain at the moment - Chest x-ray reveals no new abnormalities - Monitor Hypertension - BP well controlled, continue to monitor Hyperbilirubinemia - Tbili 12 - Gastroenterology consulted - Cont to monitor Depression - Psychiatry consulted - Cont Seroquel Peptic ulcer disease - Pepcid 20 mg IVP daily Hypothyroidism - Cont Synthroid DVT/GI prophylaxis DVT prophylaxis with SCDs only, due to history of alcohol abuse,constant injuries and falls, thrombocytopenia/protonix. HAS-BLED score: risk was 5.8% , patient is at high risk for major bleeding. Patient seen and discussed with Dr. Radha Ricardo, PGY1 <Elsie Garcia - Last Filed: 04/02/17 11:33> Objective - Vital Signs/Intake and Output Vital Signs (last 24 hours): Temp Pulse Resp BP Pulse Ox 98.2 F 134 H 20 109/69 98 04/02/17 06:00 04/02/17 09:36 04/02/17 06:00 04/02/17 09:36 04/02/17 06:00 Intake and Output: 04/02/17 04/02/17 06:59 18:59 Intake Total 300 Output Total 4 Balance 296 - Medications Medications: Current Medications Digoxin (Lanoxin) 0.25 mg PO 1800 [facility] Last Admin: 04/01/17 18:28 Dose: 0.25 mg Diltiazem HCl (Cardizem) 60 mg PO TID [facility] Last Admin: 04/02/17 09:36 Dose: 60 mg Famotidine (Pepcid) 20 mg PO DAILY [facility] Last Admin: 04/02/17 09:36 Dose: 20 mg Folic Acid (Folic Acid) 1 mg PO DAILY [facility] Last Admin: 04/02/17 09:36 Dose: 1 mg Levothyroxine Sodium (Synthroid) 25 mcg PO 0600 [facility] Last Admin: 04/02/17 06:18 Dose: 25 mcg Lorazepam (Ativan) 1 mg IVP Q2 PRN; Protocol PRN Reason: Symptoms of alcohol withdrawl Last Admin: 04/01/17 14:10 Dose: 1 mg Lorazepam (Ativan) 2 mg IVP Q4 [facility] PRN Reason: Protocol Last Admin: 04/02/17 08:12 Dose: 2 mg Magnesium Oxide (Mag-Ox) 400 mg PO BID [facility] Last Admin: 04/02/17 09:36 Dose: 400 mg Multivitamins/Minerals (Therapeutic-M Tab) 1 tab PO 0800 [facility] Last Admin: 04/02/17 08:11 Dose: 1 tab Ondansetron HCl (Zofran Inj) 4 mg IVP Q6H PRN PRN Reason: Nausea/Vomiting Last Admin: 04/01/17 14:11 Dose: 4 mg Quetiapine Fumarate (Seroquel) 12.5 mg PO HS [facility] PRN Reason: Protocol Last Admin: 04/01/17 22:05 Dose: 12.5 mg Thiamine HCl (Vitamin B1 Tab) 100 mg PO DAILY [facility] Last Admin: 04/02/17 09:36 Dose: 100 mg Verapamil HCl (Calan Tab) 40 mg PO TID [facility] Last Admin: 04/01/17 14:00 Dose: Not Given Verapamil HCl (Verapamil Inj) 2.5 mg IVP Q4H PRN PRN Reason: for heart rate >140 Last Admin: 03/31/17 03:58 Dose: 2.5 mg Ziprasidone (Geodon Inj) 10 mg IM Q12 PRN; Protocol PRN Reason: severe agitation - Labs Labs: 04/02/17 06:30 04/02/17 06:30 PT 13.9 SECONDS (9.4-12.5) H 03/30/17 05:00 INR 1.20 (0.93-1.08) H 03/30/17 05:00 APTT 32.4 Seconds (25.1-36.5) 03/30/17 05:00 Attending/Attestation - Attestation I have personally seen and examined this patient.: Yes I have fully participated in the care of the patient.: Yes I have reviewed all pertinent clinical information, including history, physical exam and plan: Yes Notes (Text): 04/02/17 11:33 Attending note; Patient seen and examined with resident. Patient is a 51 year old male with past medical history of chronic alcohol abuse, dilated cardiomyopathy s/p pacemaker placement, atrial fibrillation and history of peptic ulcer disease who presented with palpitations and alcohol withdrawal. A. fib; rate control. Cardizem drip discontinued. Currently on by mouth Cardizem , verapamil and digoxin. Cardiology evaluation appreciated. Delirium; with alcohol withdrawal. Monitor closely in telemetry. Continue with ativan damir/prn for withdrawal symptoms. Psychiatric evaluation appreciated. Continue Geodon when necessary. Started on Seroquel. Pancytopenia and transaminitis noted; likely secondary to chronic ETOH abuse. Will continue to monitor. GI evaluation appreciated. Mental status is improving. Ammonia level is normal. Prognosis is poor secondary to noncompliance with follow-up and chronic alcohol abuse.
--- NOTE | 2017-04-02 15:31 | PN ---
DATE: 04/02/2017 LOCATION: The patient is in room 272, bed 1. REASON FOR CONSULTATION AND FOLLOWUP: Atrial fibrillation, rapid rate, status post fall; alcohol intoxication, DTs, alcoholic cardiomyopathy. SUBJECTIVE: The patient is lying flat in bed without any cardiac symptoms. No chest pain, shortness of breath or palpitations. The patient is conscious and alert now. Earlier, the patient was in DTs. PHYSICAL EXAMINATION: VITAL SIGNS: Blood pressure 123/89, respirations 19, pulse 111, earlier pulse was 134, and temperature 97.1. HEENT: Head is normocephalic. Eyes: Pupils are normal. Conjunctivae slightly pale. NECK: JVP low. Carotids equal. THORAX: AP diameter normal. LUNGS: Clear. CARDIOVASCULAR: S1 and S2. ABDOMEN: Soft. No tenderness. No organomegaly. Protuberant abdomen. EXTREMITIES: No clubbing. No cyanosis. LABORATORY DATA: WBC 3.7, hemoglobin 11.0, hematocrit 31.4, and platelets 59. Sodium 137, potassium 3.8, BUN 14, creatinine 0.6, calcium 8.8, phosphorus 2.9, magnesium 1.8, AST 171, ALT 79, alkaline phosphatase 151, total protein 6.9, and albumin is 3.0. DIAGNOSES: Alcoholic intoxication, atrial fibrillation with rapid ventricular rate, mitral regurgitation, tricuspid regurgitation, dilated cardiomyopathy, nonischemic type, probably related to alcoholic cardiomyopathy, sick sinus syndrome status post permanent pacemaker insertion, chronic atrial fibrillation, not a candidate for anticoagulation because of history of multiple falls, alcohol intoxication, anemia, and low platelet count. The patient also very poor compliant patient. We will not follow up prothrombin time and INR. PLAN: The patient is already getting Cardizem 60 p.o. t.i.d., digoxin 0.25 daily, thiamine 100 mg daily, and levothyroxine 25 mcg daily. We will add atenolol 25 mg p.o. daily to slow down the heart rate. We will follow. Tere Collins MD
--- NOTE | 2017-04-02 15:37 | CON ---
DATE: HISTORY OF PRESENT ILLNESS: The patient is a 51-year-old white male with a long history of alcohol dependency, who has been seen by Psychiatry on the medical floor due to symptoms of DTs associated with agitation and hallucinations on the unit. I met with the patient at bedside yesterday and then again today and I have reviewed recent staff notes. The patient's behavior has improved in past 24 hours and he has been calmer, less agitated, and more predictable on the unit. He has not exhibited any signs of distress and he has been tolerating medications well. He has intermittent signs of confusion; however, appears much less paranoid and easily agitated. During my interview, the patient was aware of what month and year it was and location and his current circumstances. The patient reports that he denies having any further hallucinations and delusions were not elicited. His responses are very coherent and relevant to questioning and generally goal directed with good focus in eye contact. His affect is constricted and tired. He report that he goes "down from being here,"however, he does not have any hopelessness or suicidal thoughts or wishes, he wants very much to improve his medical conditioning and life. The patient does still have complaints about pain and did not sleep very well because of tossing and turning related to the pain. His affect is more related and in control and he shows better emotional controls today. Insight and judgment are improving and appears to be thankful for our intervention thus far except for what relates to pain, which he still complains about and reports his gratefulness to the nursing staff as well. PHYSICAL EXAMINATION: VITAL SIGNS: Reviewed by his provider. LABORATORY DATA: Recent lab work was also reviewed by this provider. RELEVANT PSYCHIATRIC MEDICATIONS: Include Ativan 1 mg IV q.2 hours p.r.n., the patient received one dose of it today; Ativan 2 mg IV q.4 hours scheduled, the patient received 3 doses today; Seroquel 12.5 mg p.o. at bedtime, the patient received one dose last night; and Geodon 10 mg q.12 hours p.r.n., the patient has not received any doses in the unit. IMPRESSION: Alcohol withdrawal, delirium tremens improving, alcohol use disorder, severe and mood disorder, not otherwise specified. RECOMMENDATIONS: At this time, we will continue with current treatment and plan. The patient's mental status is improving. There is no acute indication of change in his medication at this time. Ativan should be tapered as tolerated by the medical team for the patient's withdrawal symptoms. If it is not done, the patient runs a risk of benzo delirium, which can worsen his mental status and cause further disorientation and disinhibition. Psychiatry will continue to follow up and monitor his mental status, mood and behavior as well as tolerance to medications. Mandy French MD
[2017-04-02] MEDS: Digoxin 250 mcg (0.25 mg) Tab PO SCH (17:24)
[2017-04-03] MEDS: Levothyroxine 25 MCG TAB PO SCH (05:39)
[2017-04-03 06:31] LABS: HEMOGLOBIN 11.1 g/dL (14.0-18.0); MEAN CELL VOLUME 102.9 fl (80.0-105.0); MEAN CORPUSCULAR HEMOGLOBIN 35.4 pg (25.0-35.0); MEAN CORPUSCULAR HGB CONC 34.4 g/dl (31.0-37.0); MEAN PLATELET VOLUME 11.6 fl (7.0-11.0); RBC 3.14 10^6/uL (3.5-6.1); RED CELL DISTRIBUTION WIDTH 18.4 % (11.5-14.5); WHITE BLOOD COUNT 3.1 10^3/ul (4.5-11.0)
[2017-04-03 06:57] LABS: ALB/GLOB RATIO 0.7 (1.1-1.8); ALBUMIN 2.9 g/dL (3.0-4.8); ALT/SGPT 78 U/L (7-56); AST/SGOT 166 U/L (17-59); BLOOD UREA NITROGEN 12 mg/dL (7-21); CALCIUM 8.8 mg/dL (8.4-10.5); GFR AFRICAN-AMERICAN > 60; GFR NON-AFRICAN AMERICAN > 60; MAGNESIUM 1.7 mg/dL (1.7-2.2)
--- NOTE | 2017-04-03 08:22 | CON ---
DATE: 04/01/2017 HISTORY OF PRESENT ILLNESS: I saw the patient this morning. This is a 51-year-old white male with past medical history of dilated cardiomyopathy, ventricular pacemaker, chronic AFib, alcohol use, decreased platelets, peptic ulcer disease, depression, presented with some chest wall pain at sleeping. The patient was found to be in rapid atrial fibrillation on admission. The patient has history of significant alcohol use. A consult was called for history of alcohol use. The patient denies any hematemesis, rectal bleeding, abdominal pain, chest pain, etc. The patient was drinking very heavily prior to admission. PHYSICAL EXAMINATION: VITAL SIGNS: I reviewed this patient's vital signs. HEENT: Noncontributory. LUNGS: Clear to auscultation. HEART: Regular rhythm. ABDOMEN: Soft. No tenderness elicited anywhere. LABORATORY DATA: I reviewed this patient's laboratory data. White count 2.9, H and H 11.7 and 34 with a platelet count of 42. INR is within normal limits. Review of CMP indicates alk phos of 199 with an AST/ALT transaminase ratio of 246/86. His LVH was 662 on admission. His electrolytes are within normal limits with BUN/creatinine ratio of 4/0.5. Magnesium 1.5. His bilirubin is 11.6, direct bilirubin 7.3. ASSESSMENT: A 51-year-old white male with history of cardiomyopathy, excessive alcohol use, elevated transaminases on admission, currently decreasing. We would continue monitoring ALT trends with the patient's current admission. Orders appear to be adequate. At the current time point, given metoprolol, lactulose, lorazepam, etc. The patient is being followed by Cardiology as well as house staff. Naseem Rossi DO, PhD JYOTI
[2017-04-03] MEDS: Multivitamin With Minerals Tab PO SCH (09:09)
--- NOTE | 2017-04-03 09:20 | CP.PCM.PN ---
<Chico Patel - Last Filed: 04/03/17 14:41> Subjective - Date & Time of Evaluation Date of Evaluation: 04/03/17 Time of Evaluation: 07:19 - Subjective Subjective: Chico Patel PGY1 IM Progress Note for Dr. Garcia Hospitalist Service Patient was seen and examined bedside. He denies any acute overnight events and has no complaints. He is more alert and oriented today and is able to have a coherent conversation.The patient denies chest pain, shortness of breath, cough , fevers/chills, n/v/d, headaches, changes in vision/hearing, tinnitus, dizziness, fatigue, weakness, abdominal pain, changes in urine or bowel habits. Objective - Vital Signs/Intake and Output Vital Signs (last 24 hours): Temp Pulse Resp BP Pulse Ox 98.6 F 66 20 108/70 96 04/03/17 06:00 04/03/17 06:00 04/03/17 06:00 04/03/17 06:00 04/03/17 06:00 Intake and Output: 04/03/17 04/03/17 06:59 18:59 Intake Total 480 Output Total 200 Balance 280 - Medications Medications: Current Medications Atenolol (Tenormin) 25 mg PO DAILY [facility] Last Admin: 04/02/17 13:27 Dose: 25 mg Digoxin (Lanoxin) 0.25 mg PO 1800 [facility] Last Admin: 04/02/17 17:24 Dose: 0.25 mg Diltiazem HCl (Cardizem) 60 mg PO TID [facility] Last Admin: 04/02/17 17:24 Dose: 60 mg Famotidine (Pepcid) 20 mg PO DAILY [facility] Last Admin: 04/02/17 09:36 Dose: 20 mg Folic Acid (Folic Acid) 1 mg PO DAILY [facility] Last Admin: 04/02/17 09:36 Dose: 1 mg Levothyroxine Sodium (Synthroid) 25 mcg PO 0600 [facility] Last Admin: 04/03/17 05:39 Dose: 25 mcg Lorazepam (Ativan) 1 mg IVP Q2 PRN; Protocol PRN Reason: Symptoms of alcohol withdrawl Last Admin: 04/01/17 14:10 Dose: 1 mg Lorazepam (Ativan) 2 mg IVP Q4 ALLIE PRN Reason: Protocol Last Admin: 04/03/17 09:09 Dose: 2 mg Magnesium Oxide (Mag-Ox) 400 mg PO BID [facility] Last Admin: 04/02/17 17:25 Dose: 400 mg Multivitamins/Minerals (Therapeutic-M Tab) 1 tab PO 0800 [facility] Last Admin: 04/03/17 09:09 Dose: 1 tab Ondansetron HCl (Zofran Inj) 4 mg IVP Q6H PRN PRN Reason: Nausea/Vomiting Last Admin: 04/01/17 14:11 Dose: 4 mg Quetiapine Fumarate (Seroquel) 12.5 mg PO HS [facility] PRN Reason: Protocol Last Admin: 04/02/17 21:41 Dose: 12.5 mg Thiamine HCl (Vitamin B1 Tab) 100 mg PO DAILY [facility] Last Admin: 04/02/17 09:36 Dose: 100 mg Verapamil HCl (Calan Tab) 40 mg PO TID [facility] Last Admin: 04/02/17 17:24 Dose: 40 mg Verapamil HCl (Verapamil Inj) 2.5 mg IVP Q4H PRN PRN Reason: for heart rate >140 Last Admin: 03/31/17 03:58 Dose: 2.5 mg Ziprasidone (Geodon Inj) 10 mg IM Q12 PRN; Protocol PRN Reason: severe agitation - Labs Labs: 04/03/17 05:20 04/03/17 05:20 PT 13.9 SECONDS (9.4-12.5) H 03/30/17 05:00 INR 1.20 (0.93-1.08) H 03/30/17 05:00 APTT 32.4 Seconds (25.1-36.5) 03/30/17 05:00 - Additional Findings Additional findings: - Constitutional Appears: No Acute Distress - Head Exam Head Exam: NORMAL INSPECTION - Eye Exam Eye Exam: Normal appearance - ENT Exam ENT Exam: Normal Exam - Neck Exam Neck Exam: Normal Inspection - Respiratory Exam Respiratory Exam: Clear to Ausculation Bilateral. absent: Rales, Rhonchi, Wheezes - Cardiovascular Exam Cardiovascular Exam: RRR, +S1, +S2. absent: Gallop, Rubs, Murmur - GI/Abdominal Exam GI & Abdominal Exam: Soft. absent: Distended, Guarding, Tenderness, Rebound - Back Exam Back Exam: Normal Exam - Neurological Exam Neurological Exam: Alert, Awake, Oriented x3 - Psychiatric Exam Psychiatric exam: Normal Affect, Normal Mood - Skin Skin Exam: Dry, Intact, Normal Color, Warm Assessment and Plan - Assessment and Plan (Free Text) Assessment: 51 year old male with a past medical history of dilated cardiomyopathy s/p single chamber ventricular pacemaker placement, chronic atrial fibrillation, alcohol abuse, thrombocytopenia, peptic ulcer disease and depression who presented with complaints of bruising and chest wall pain s/p fall while getting out of the shower. Patient found to be in atrial fibrillation. Patient underwent alcohol withdrawals w/ delirium tremens and periods of agitation. Plan: 1. Alcohol Withdrawals - Continue with folic Acid, MV, and thiamine daily - CIWA protocol - Ativan ALLIE decreased to 2 mg q6, 1 mg q2 prn (not being required), will - Geodon 10 mg IM Q12 prn for agitation (not being required) - Continue with seizure precautions, aspiration precautions, bed rest, fall precautions - Heart healthy diet - Head above bed 30 degrees - Vitals signs q2 - midline ordered; consent provided 2. Alcohol hepatitis - Patient has a history of transaminitis; liver enzymes downtrending - Child-Rodriguez score 7; Abdominal surgery sandra-operative mortality is 30%. - MELD score predicts 6.0% estimated 3-month mortality. - Discriminant factor 20.7 - No steroids being used 2/2 risk of bleeding in the patient 3. Atrial fibrillation with rapid ventricular response - Cardiology consulted; recommendations appreciated - Continue cardizem, digoxin, verapmil 4. Alcoholic Bone Marrow Suppression - Pancytopenic - Cont to monitor 5. Dilated Cardiomyopathy - Cardiology consulted - Continue with cardiac medication regimen as listed above 6. Right 7th Rib Fracture - Rib x-ray reveals minimal displacement fracture of right 7th rib; not complaining of pain at the moment - Chest x-ray reveals no new abnormalities - Monitor 7. Hypertension - BP well controlled, continue to monitor 8. Hyperbilirubinemia - Gastroenterology consulted - Cont to monitor 9. Depression - Psychiatry consulted - Cont Seroquel 10. Peptic ulcer disease - Pepcid 20 mg PO daily 11. Hypothyroidism - Cont Synthroid DVT/GI prophylaxis DVT prophylaxis with SCDs only, due to history of alcohol abuse,constant injuries and falls, thrombocytopenia/protonix. HAS-BLED score: risk was 5.8% , patient is at high risk for major bleeding. Pepcid for GI ppx The patient was seen, examined and discussed with attending, Dr. Radha Patel PGY1 Pager # [phone] <Elsie Garcia - Last Filed: 04/03/17 16:29> Objective - Vital Signs/Intake and Output Vital Signs (last 24 hours): Temp Pulse Resp BP Pulse Ox 98.3 F 94 H 20 125/89 96 04/03/17 12:00 04/03/17 13:26 04/03/17 12:00 04/03/17 13:26 04/03/17 06:00 Intake and Output: 04/03/17 04/03/17 06:59 18:59 Intake Total 480 Output Total 200 Balance 280 - Medications Medications: Current Medications Atenolol (Tenormin) 25 mg PO DAILY [facility] Last Admin: 04/03/17 11:07 Dose: 25 mg Digoxin (Lanoxin) 0.25 mg PO 1800 [facility] Last Admin: 04/02/17 17:24 Dose: 0.25 mg Famotidine (Pepcid) 20 mg PO DAILY [facility] Last Admin: 04/03/17 11:06 Dose: 20 mg Folic Acid (Folic Acid) 1 mg PO DAILY [facility] Last Admin: 04/03/17 11:05 Dose: 1 mg Levothyroxine Sodium (Synthroid) 25 mcg PO 0600 [facility] Last Admin: 04/03/17 05:39 Dose: 25 mcg Lorazepam (Ativan) 1 mg IVP Q2 PRN; Protocol PRN Reason: Symptoms of alcohol withdrawl Last Admin: 04/01/17 14:10 Dose: 1 mg Lorazepam (Ativan) 2 mg IVP Q6 ALLIE PRN Reason: Protocol Magnesium Oxide (Mag-Ox) 400 mg PO BID [facility] Last Admin: 04/03/17 11:05 Dose: 400 mg Multivitamins/Minerals (Therapeutic-M Tab) 1 tab PO 0800 [facility] Last Admin: 04/03/17 09:09 Dose: 1 tab Ondansetron HCl (Zofran Inj) 4 mg IVP Q6H PRN PRN Reason: Nausea/Vomiting Last Admin: 04/01/17 14:11 Dose: 4 mg Quetiapine Fumarate (Seroquel) 12.5 mg PO HS [facility] PRN Reason: Protocol Last Admin: 04/02/17 21:41 Dose: 12.5 mg Thiamine HCl (Vitamin B1 Tab) 100 mg PO DAILY [facility] Last Admin: 04/03/17 11:06 Dose: 100 mg Verapamil HCl (Verapamil Inj) 2.5 mg IVP Q4H PRN PRN Reason: for heart rate >140 Last Admin: 03/31/17 03:58 Dose: 2.5 mg Verapamil HCl (Calan Tab) 80 mg PO TID [facility] Last Admin: 04/03/17 13:26 Dose: 80 mg Ziprasidone (Geodon Inj) 10 mg IM Q12 PRN; Protocol PRN Reason: severe agitation - Labs Labs: 04/03/17 05:20 04/03/17 05:20 PT 13.9 SECONDS (9.4-12.5) H 03/30/17 05:00 INR 1.20 (0.93-1.08) H 03/30/17 05:00 APTT 32.4 Seconds (25.1-36.5) 03/30/17 05:00 Attending/Attestation - Attestation I have personally seen and examined this patient.: Yes I have fully participated in the care of the patient.: Yes I have reviewed all pertinent clinical information, including history, physical exam and plan: Yes Notes (Text): 04/03/17 16:26 Attending note; Patient seen and examined with resident. Patient is a 51 year old male with past medical history of chronic alcohol abuse, dilated cardiomyopathy s/p pacemaker placement, atrial fibrillation and history of peptic ulcer disease, GI bleed who presented with palpitations and alcohol withdrawal. A. fib; rate control. Cardizem drip discontinued. Currently atenolol , verapamil and digoxin. Cardiology evaluation appreciated. Delirium; with alcohol withdrawal. Monitor closely in telemetry. Continue with ativan prn for withdrawal symptoms. Psychiatric evaluation appreciated. Continue Geodon when necessary. Started on Seroquel. continue one-to-one observation. Pancytopenia; secondary to alcohol-induced bone marrow suppression. Alcoholic hepatitis; case discussed with GI in detail. Not a candidate for steroid therapy due to GI bleed in the past. AST and ALT is improving. Bilirubin is still elevated. Monitor closely. Prognosis is poor secondary to noncompliance with follow-up and chronic alcohol abuse.
--- NOTE | 2017-04-03 09:48 | PN ---
DATE: 03/31/2017 He is being seen today for a followup consultation. PRESENTATION: The patient is a 51-year-old male seen at bedside. The patient originally was admitted to [facility] due to complaints of bruising and chest wall pain after slipping yesterday while getting out of the shower. He was complaining of left lower back discomfort radiating to his left lower buttock. Upon admission to the Emergency Room, the patient was found to be in atrial fibrillation with rapid ventricular response. He has had AFib since he was 15 years old. The patient additionally has chronic alcoholism, but he is on admission, he drinks "10/10 beer only," consuming other type of alcohol, makes his AFib worse. I saw the patient yesterday and he was completely oriented, had a clear sensorium from the DT's and appeared to be stable psychiatrically; however, in reviewing the nurses notes overnight, the patient started having difficulties. During the last night he started to decompensate in terms of his cardiac status as well, became very very confused, agitated, self-restraint were utilized. The patient as of now is still in the self restraints. He also was given a one-to-one for safety if he is trying to climb out of bed and he was unable to be redirected. He when seen today he was almost completely disoriented. He indicates to me that the man who was sitting next to him in his one-to-one is his cousin Elvis Ybarra who has the same name as his. Hardly he recognizes me from the day before and complimenting on the soreness of my exam the day before, but he believes I am visiting him in his home and his cousin is there and then he starts telling me about how he saw all these alligators in the water and used the gun to shoot them last night and really was very very confused. He is jaundiced and evidently medically it is hard to stabilize. At this moment in time, Dr. Garcia was contacted in terms of the changes physically, which she is aware, but also that he mentally was struggling in this way, suggestion made that the patient should be on ICU, that was already being addressed by her medical team. There was not a bed available, but she is considering moving him should there be one. PHYSICAL EXAMINATION: CURRENT VITAL SIGNS: Include temperature of 98 degrees, pulse rate of 110, blood pressure of 143/79, and respiratory rate of 24. MEDICATIONS: To manage his DT's are folic acid 1 mg daily, Ativan 1 mg IV push q. 2 hours, lorazepam or Ativan 2 mg IV push q. 2 hours. Looks as if they are alternating this. He is additionally on multivitamins, thiamine hydrochloride 100 mg daily to this was added, Seroquel 12.5 mg one p.o. at bedtime to help with the patient's orientation. MENTAL STATUS EXAMINATION: The patient's ancestors name is completely disorganized in every other way. He when questioned, indicates that he is not suicidal, he is not homicidal, he is not hallucinating though. He certainly appears to be responding to internal stimuli. He needs to be restraint for safety and have a one-to-one. DIAGNOSTIC IMPRESSION: Acute alcohol withdrawal. PLAN: We will continue to follow the patient as his mental situation seems to be deteriorating, Seroquel has been added at bedtime to hopefully help with his sensorium. One-to-one will continue. He will be restraint p.r.n. The patient will be followed by Dr. French on the weekend. This case has been discussed with Dr. Castillo. Thank you. Alison Russo APN
[2017-04-03] MEDS: Magnesium Oxide 400 mg Tab UD PO SCH ×2 (11:05→18:24)
--- NOTE | 2017-04-03 11:27 | PN ---
DATE: 04/03/2017 SUBJECTIVE: I saw Mr. Ybarra this morning. He is a 51-year-old white male with a history of heavy alcohol use, admitted with complaints of dyspnea, shortness of breath, and chest pain, found to have atrial fibrillation with rapid ventricular response. The patient is currently still on Telemetry. This morning at the bedside, the patient notes no abdominal pain, however, he feels nauseous periodically. Currently experiencing withdrawal symptoms from alcohol. The patient denies any chest pain, shortness of breath, any fever or chills; however, he is shaking at the current time point. He does not feel well. PHYSICAL EXAMINATION: VITAL SIGNS: I reviewed this patient's vital signs. HEENT: Noncontributory. LUNGS: Clear to auscultation. HEART: Regular rate and rhythm. ABDOMEN: Soft. No tenderness elicited. LABORATORY DATA: I have reviewed this patient's laboratory data. His H&H of with platelet count of 58. INR within normal limits. Chemistry; labs are reviewed from yesterday, labs are pending for today. ASSESSMENT AND PLAN: This patient was admitted for complaints related to atrial fibrillation and alcohol abuse compounded with dilated cardiomyopathy. The patient is on detox protocol as per house staff. He is also being followed by Cardiology for atrial fibrillation with rapid ventricular response. I think he may had consult before. The patient's transaminases were decreasing. He is advised on multiple occasions to decrease alcohol intake. Due to his heavy alcohol intake, the patient would not be candidate for any surgical transplantation procedures at the current time at [facility]. Naseem Rossi DO, PhD JYOTI
[2017-04-03] MEDS ORDERED: Potassium Chloride 20 mEq ER Tab PO ONE (13:17)
[2017-04-03] MEDS ORDERED: Magnesium Oxide 400 mg Tab UD PO STA (13:18)
--- NOTE | 2017-04-03 15:22 | PN ---
DATE: 04/03/2017 He is being seen today for followup consultation. PRESENTATION: The patient is a 51-year-old male seen at bedside. The patient originally came to the hospital due to falling while getting out of the shower. Complaining of lower back discomfort, radiating to the left lower buttocks. Once he was admitted, he was found to have atrial fibrillation with rapid ventricular response and was admitted for this. Since then, he has had severe withdrawal symptoms from alcohol. His alcohol use, reportedly according to the patient, is "24x7 drinking of beer." Today, the patient is clear than last seen. He has some difficulty with memory and he is oriented to the person and place, but has difficulty with time and date. He is tearful. He is sad. He indicates that if he had his father's gun, he would shoot himself on the head. He misses his father and wants to be with him. He does not want to live anymore. He knows he can go on drinking and living the way he is now. He is scared because his heart seems to be having so many difficulties at this point in time and he indicates that he does not really know how to live differently than he has been. One of the things that I discussed with him was that he has been to rehab several times, but has never been into any kind of living situation beyond the detox or rehab and perhaps that is something that needs to be looked at in terms of appropriate discharge planning for him. The patient does have some supportive family members. He indicates he would like them involved with his care. Due to his current presentation, one-to-one was put back on and the patient was urged to consent for voluntary admission on the psychiatric unit of [address] [place] [address] at [facility] when he is medically cleared from the medical side. PHYSICAL EXAMINATION: CURRENT VITAL SIGNS: Today include temperature of 98.6 degrees, pulse rate of 66. His blood pressure is 108/70, his respiratory rate is 20, and his O2 sat is 96%. GENERAL: The patient is markedly jaundiced today as well. MEDICATIONS: His current medications in reference to his withdrawal are folic acid 1 mg daily, Ativan 1 mg IV push q. 2 hours p.r.n. He last received this on 04/01. He additionally has an order for lorazepam 2 mg IV push q.4 hours which was last given at 09:00 a.m. this morning, which is 04/03. He is also on multivitamins, Seroquel 12.5 mg one at bedtime, thiamine hydrochloride 100 mg p.o. daily. He continues on telemetry. In review of the nurses' notes and discussion with the nurses, his cardiac status seems to be stabilizing somewhat. MENTAL STATUS EXAMINATION: The patient is alert and oriented times 2. His eye contact is good. His behavior is cooperative. His speech rate and volume are within normal limits. Mood is sad. Affect is constricted. He cries and becomes tearful when talking about his parents. His thoughts were goal directed. He indicates that he no longer wants to live. If he had his father's gun, he would kill himself. When I questioned the patient originally about whether or not there were any guns in the house, he indicated to me that during a previous admission, his uncle had removed the gun from the house and he keeps it in a locked bin at his uncle's house, so the patient has no access to guns. He denies being homicidal. He denies the presence of hallucinations, delusions or paranoia. His concentration and focus are poor. 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 He is worried that he has brain damage and "will never be right again." His appetite and sleep are disrupted. PLAN: One-to-one has been ordered due to the patient's verbalized suicidal thoughts. The patient was encouraged to sign into voluntary psychiatric unit once he is medically cleared, to come up with discharge plan for him and just discharging him to his home. He indicates at this time that he is very ashamed of his house at this point of time because he has allowed it to get filled with beer cans everywhere. It is messy, it is dirty and he does not want to live like that anymore. The patient is ambivalent regarding signing in; however, we will continue to follow the patient accordingly. His case has been discussed with Dr. Castillo. Thank you for the consult. MAURICE An MD [facility] # [id number]
[2017-04-03] MEDS: Digoxin 250 mcg (0.25 mg) Tab PO SCH (18:23)
--- NOTE | 2017-04-03 19:16 | PN ---
DATE: 04/03/2017 REASON FOR CONSULTATION: Followup of atrial fibrillation, rapid rate, status post fall, alcohol intoxication, DTs, alcohol related cardiomyopathy. SUBJECTIVE: The patient denies any chest pain, shortness of breath, or any palpitation. PHYSICAL EXAMINATION: GENERAL: Not in apparent distress. VITAL SIGNS: As follow; temperature afebrile, heart rate 94, and blood pressure 125/80. HEENT: PERRLA. Extraocular muscles intact. NECK: Supple. No carotid bruits or thyromegaly. CHEST: Clear to auscultation. HEART: S1 and S2, regular. ABDOMEN: Soft. EXTREMITIES: Clubbing and cyanosis negative. LABORATORY DATA: Blood workup as follows; WBC 3.1, hemoglobin 11.0, hematocrit 32.3, and platelet count 58. Chemistry shows sodium 130, potassium 3.6, chloride 103, carbon dioxide 25, anion gap of 11, BUN of 12, and creatinine 0.5. IMPRESSION: Chronic atrial fibrillation, admitted with rapid ventricular rate. Not a candidate for anticoagulation, admitted with atrial fibrillation with rapid ventricular rate, alcoholic intoxication, history of chronic atrial fibrillation, mitral regurgitation, tricuspid regurgitation, dilated cardiomyopathy, nonischemic, probably related to alcohol, sick sinus syndrome, status post permanent pacemaker, chronic atrial fibrillation, and noncompliant with medication. Not a candidate for anticoagulation, high risk of fall, multiple falls, multiple times of alcoholic intoxication, anemia, low platelet count, very poor compliance and will not follow up the PT/INR. RECOMMENDATIONS: Continue verapamil p.o. t.i.d., we will increase verapamil, but continue digoxin and supplement of magnesium. We will discontinue telemetry. The patient is currently on both verapamil and Cardizem. We will simplify the regimen and switch to a t.i.d. verapamil from 2:00 p.m., and we will discontinue Cardizem. Continue atenolol. Now, we will discontinue telemetry. We will give Lovenox while patient is here. We cannot give anticoagulation because the platelet count is around 40,000, so we will keep off even anticoagulation while the patient is here. We will discontinue telemetry. Medical treatment. Supplement magnesium and phosphorus if needed. Thank you Dr. Garcia for providing us the opportunity in taking care of the patient. Tere Albrecht MD
[2017-04-04] MEDS: Levothyroxine 25 MCG TAB PO SCH (05:35)
[2017-04-04 06:40] LABS: HEMOGLOBIN 10.9 g/dL (14.0-18.0); MEAN CELL VOLUME 104.7 fl (80.0-105.0); MEAN CORPUSCULAR HEMOGLOBIN 34.1 pg (25.0-35.0); MEAN CORPUSCULAR HGB CONC 32.5 g/dl (31.0-37.0); MEAN PLATELET VOLUME 11.5 fl (7.0-11.0); RBC 3.2 10^6/uL (3.5-6.1); RED CELL DISTRIBUTION WIDTH 17.3 % (11.5-14.5); WHITE BLOOD COUNT 3.3 10^3/ul (4.5-11.0)
[2017-04-04 07:20] LABS: ALB/GLOB RATIO 0.7 (1.1-1.8); ALBUMIN 2.9 g/dL (3.0-4.8); ALT/SGPT 84 U/L (7-56); AST/SGOT 203 U/L (17-59); BLOOD UREA NITROGEN 10 mg/dL (7-21); CALCIUM 8.9 mg/dL (8.4-10.5); GFR AFRICAN-AMERICAN > 60; GFR NON-AFRICAN AMERICAN > 60; MAGNESIUM 1.8 mg/dL (1.7-2.2)
--- NOTE | 2017-04-04 07:56 | CP.PCM.PN ---
<Mariana Brar - Last Filed: 04/04/17 12:17> Subjective - Date & Time of Evaluation Date of Evaluation: 04/04/17 Time of Evaluation: 07:30 - Subjective Subjective: Dr. Melendez Service Pt was seen and examined at bedside. No acute complaints at this time. As per nursing staff, pt was tremulous and required ativan early this morning. Pt 1:1 has been discontinued. Pt is tolerating Po intake, having regular bowel and bladder movements. The patient denied chest pain, shortness of breath, cough, fevers/chills, n/v/d, headaches, changes in vision/hearing, tinnitus, dizziness , fatigue, weakness, abdominal pain, changes in urine or bowel habits. Objective - Vital Signs/Intake and Output Vital Signs (last 24 hours): Temp Pulse Resp BP Pulse Ox 97.9 F 68 20 111/76 97 04/04/17 06:00 04/04/17 06:00 04/04/17 06:00 04/04/17 06:00 04/04/17 06:00 - Medications Medications: Current Medications Atenolol (Tenormin) 25 mg PO DAILY [facility] Last Admin: 04/03/17 11:07 Dose: 25 mg Digoxin (Lanoxin) 0.25 mg PO 1800 [facility] Last Admin: 04/03/17 18:23 Dose: 0.25 mg Famotidine (Pepcid) 20 mg PO DAILY [facility] Last Admin: 04/03/17 11:06 Dose: 20 mg Folic Acid (Folic Acid) 1 mg PO DAILY [facility] Last Admin: 04/03/17 11:05 Dose: 1 mg Levothyroxine Sodium (Synthroid) 25 mcg PO 0600 [facility] Last Admin: 04/04/17 05:35 Dose: 25 mcg Lorazepam (Ativan) 1 mg IVP Q2 PRN; Protocol PRN Reason: Symptoms of alcohol withdrawl Last Admin: 04/01/17 14:10 Dose: 1 mg Lorazepam (Ativan) 2 mg IVP Q6 [facility] PRN Reason: Protocol Last Admin: 04/04/17 05:34 Dose: Not Given Magnesium Oxide (Mag-Ox) 400 mg PO BID [facility] Last Admin: 04/03/17 18:24 Dose: 400 mg Multivitamins/Minerals (Therapeutic-M Tab) 1 tab PO 0800 [facility] Last Admin: 04/03/17 09:09 Dose: 1 tab Ondansetron HCl (Zofran Inj) 4 mg IVP Q6H PRN PRN Reason: Nausea/Vomiting Last Admin: 04/01/17 14:11 Dose: 4 mg Quetiapine Fumarate (Seroquel) 12.5 mg PO HS [facility] PRN Reason: Protocol Last Admin: 04/03/17 22:01 Dose: 12.5 mg Thiamine HCl (Vitamin B1 Tab) 100 mg PO DAILY [facility] Last Admin: 04/03/17 11:06 Dose: 100 mg Verapamil HCl (Verapamil Inj) 2.5 mg IVP Q4H PRN PRN Reason: for heart rate >140 Last Admin: 03/31/17 03:58 Dose: 2.5 mg Verapamil HCl (Calan Tab) 80 mg PO TID [facility] Last Admin: 04/03/17 18:24 Dose: 80 mg Ziprasidone (Geodon Inj) 10 mg IM Q12 PRN; Protocol PRN Reason: severe agitation - Labs Labs: 04/04/17 05:30 04/04/17 05:30 PT 13.9 SECONDS (9.4-12.5) H 03/30/17 05:00 INR 1.20 (0.93-1.08) H 03/30/17 05:00 APTT 32.4 Seconds (25.1-36.5) 03/30/17 05:00 - Constitutional Appears: No Acute Distress - Head Exam Head Exam: ATRAUMATIC, NORMAL INSPECTION, NORMOCEPHALIC - Eye Exam Eye Exam: EOMI, Normal appearance, PERRL Pupil Exam: NORMAL ACCOMODATION, PERRL - ENT Exam ENT Exam: Mucous Membranes Moist, Normal Exam - Respiratory Exam Respiratory Exam: Clear to Ausculation Bilateral, NORMAL BREATHING PATTERN - Cardiovascular Exam Cardiovascular Exam: REGULAR RHYTHM, +S1, +S2. absent: Murmur - GI/Abdominal Exam GI & Abdominal Exam: Soft, Normal Bowel Sounds. absent: Tenderness - Neurological Exam Neurological Exam: Alert, Awake, CN II-XII Intact, Oriented x3 - Psychiatric Exam Psychiatric exam: Normal Affect, Normal Mood - Skin Skin Exam: Dry, Intact, Normal Color, Warm Assessment and Plan - Assessment and Plan (Free Text) Assessment: 51 year old male with a past medical history of dilated cardiomyopathy s/p single chamber ventricular pacemaker placement, chronic atrial fibrillation, alcohol abuse, thrombocytopenia, peptic ulcer disease and depression who presented with complaints of bruising and chest wall pain s/p fall while getting out of the shower. Patient found to be in atrial fibrillation. Patient underwent alcohol withdrawals w/ delirium tremens and periods of agitation. 1. Alcohol Withdrawals - Continue with folic Acid, MV, and thiamine daily - CINC protocol most recently 7, tremors this morning, Ativan given - Ativan ALLIE decreased to 2 mg q6, 1 mg q2 prn (not being required), - Geodon 10 mg IM Q12 prn for agitation (not being required) - Continue with seizure precautions, aspiration precautions, bed rest, fall precautions - Heart healthy diet - Head above bed 30 degrees - Vitals signs q2 - midline ordered; consent provided, tolerated 2. Alcohol hepatitis - Patient has a history of transaminitis; liver enzymes downtrending - Child-Rodriguez score 7; Abdominal surgery sandra-operative mortality is 30%. - MELD score predicts 6.0% estimated 3-month mortality. - Discriminant factor 20.7 - No steroids being used 2/2 risk of bleeding in the patient 3. Atrial fibrillation with rapid ventricular response - Cardiology consulted; recommendations appreciated - Continue digoxin, verapmil. dc cardizem 4. Alcoholic Bone Marrow Suppression - Pancytopenic - Cont to monitor 5. Dilated Cardiomyopathy - Cardiology consulted - Continue with cardiac medication regimen as listed above 6. Right 7th Rib Fracture - Rib x-ray reveals minimal displacement fracture of right 7th rib; not complaining of pain at the moment - Chest x-ray reveals no new abnormalities - Monitor 7. Hypertension - BP well controlled, continue to monitor 8. Hyperbilirubinemia - Gastroenterology consulted - Cont to monitor 9. Depression - Psychiatry consulted - Cont Seroquel 10. Peptic ulcer disease - Pepcid 20 mg PO daily 11. Hypothyroidism - Cont Synthroid DVT/GI prophylaxis DVT prophylaxis with SCDs only, due to history of alcohol abuse,constant injuries and falls, thrombocytopenia/protonix. HAS-BLED score: risk was 5.8% , patient is at high risk for major bleeding. Pepcid for GI ppx The patient was seen, examined and discussed with attending, Dr. Garcia <Elsie Garcia - Last Filed: 04/04/17 15:18> Objective - Vital Signs/Intake and Output Vital Signs (last 24 hours): Temp Pulse Resp BP Pulse Ox 99.1 F 68 18 111/76 97 04/04/17 12:00 04/04/17 12:12 04/04/17 12:00 04/04/17 12:12 04/04/17 06:00 - Medications Medications: Current Medications Atenolol (Tenormin) 25 mg PO DAILY [facility] Last Admin: 04/04/17 12:12 Dose: 25 mg Digoxin (Lanoxin) 0.25 mg PO 1800 [facility] Last Admin: 04/03/17 18:23 Dose: 0.25 mg Famotidine (Pepcid) 20 mg PO DAILY [facility] Last Admin: 04/04/17 12:11 Dose: 20 mg Folic Acid (Folic Acid) 1 mg PO DAILY [facility] Last Admin: 04/04/17 12:11 Dose: 1 mg Levothyroxine Sodium (Synthroid) 25 mcg PO 0600 [facility] Last Admin: 04/04/17 05:35 Dose: 25 mcg Lorazepam (Ativan) 1 mg IVP Q2 PRN; Protocol PRN Reason: Symptoms of alcohol withdrawl Last Admin: 04/01/17 14:10 Dose: 1 mg Lorazepam (Ativan) 2 mg IVP Q6 [facility] PRN Reason: Protocol Last Admin: 04/04/17 12:11 Dose: Not Given Magnesium Oxide (Mag-Ox) 400 mg PO BID [facility] Last Admin: 04/04/17 12:11 Dose: 400 mg Multivitamins/Minerals (Therapeutic-M Tab) 1 tab PO 0800 [facility] Last Admin: 04/04/17 12:10 Dose: 1 tab Ondansetron HCl (Zofran Inj) 4 mg IVP Q6H PRN PRN Reason: Nausea/Vomiting Last Admin: 04/01/17 14:11 Dose: 4 mg Quetiapine Fumarate (Seroquel) 12.5 mg PO HS [facility] PRN Reason: Protocol Last Admin: 04/03/17 22:01 Dose: 12.5 mg Thiamine HCl (Vitamin B1 Tab) 100 mg PO DAILY [facility] Last Admin: 04/04/17 12:11 Dose: 100 mg Verapamil HCl (Verapamil Inj) 2.5 mg IVP Q4H PRN PRN Reason: for heart rate >140 Last Admin: 03/31/17 03:58 Dose: 2.5 mg Verapamil HCl (Calan Tab) 80 mg PO TID [facility] Last Admin: 04/04/17 12:10 Dose: 80 mg Ziprasidone (Geodon Inj) 10 mg IM Q12 PRN; Protocol PRN Reason: severe agitation - Labs Labs: 04/04/17 05:30 04/04/17 05:30 PT 13.9 SECONDS (9.4-12.5) H 03/30/17 05:00 INR 1.20 (0.93-1.08) H 03/30/17 05:00 APTT 32.4 Seconds (25.1-36.5) 03/30/17 05:00 Attending/Attestation - Attestation I have personally seen and examined this patient.: Yes I have fully participated in the care of the patient.: Yes I have reviewed all pertinent clinical information, including history, physical exam and plan: Yes Notes (Text): 04/04/17 14:48 Attending note; Patient seen and examined with resident. Patient is a 51 year old male with past medical history of chronic alcohol abuse, dilated cardiomyopathy s/p pacemaker placement, atrial fibrillation and history of peptic ulcer disease, GI bleed who presented with palpitations and alcohol withdrawal. A. fib; rate control. Currently atenolol , verapamil and digoxin. Cardiology evaluation appreciated. Delirium; with alcohol withdrawal.improving slowly. Continue with ativan prn for withdrawal symptoms. Psychiatric evaluation appreciated. Continue Geodon when necessary. Started on Seroquel. continue one-to-one observation. Pancytopenia; secondary to alcohol-induced bone marrow suppression. improving slowly. Alcoholic hepatitis; case discussed with GI in detail. AST and ALT is improving. Bilirubin is still elevated. Monitor closely. Prognosis is poor secondary to noncompliance with follow-up and chronic alcohol abuse.
--- NOTE | 2017-04-04 09:03 | PN ---
DATE: 04/04/2017 SUBJECTIVE: I saw Mr. Ybarra this morning. He is a 51-year-old white male, evaluated for cardiac issues as well as alcohol withdrawal. The patient has been calm, no acute events. I discussed the case with the nurses. The patient is not complaining of nausea, vomiting, abdominal pain, chest pain, rectal bleeding, or hematemesis. PHYSICAL EXAMINATION: VITAL SIGNS: I reviewed this patient's vital signs. HEENT: Noncontributory. LUNGS: Decreased breath sounds, basilar. HEART: Regular rhythm. ABDOMEN: Soft. No tenderness elicited. LABORATORY DATA: I have reviewed this patient's laboratory data from yesterday, which includes the platelet count of 58, H and H of 11 and 32. Chemistries from yesterday reviewed, noted that the AST continues to be increased. Bilirubin is elevated to 12.5. Note that the decrease in the bilirubin trends tends to lag behind the decrease in transaminases. Current AST/ALT ratio most recent as of yesterday morning was 166/78. As indicated above in my previous notes, not much to offer this patient except for evaluating the decrease in the transaminase trends. Continue observing the patient for DTs. He is to continue on DT precautions and on telemetry. He will be followed by multiple consultants including Cardiology. I reviewed Dr. Albrecht's note. OVERALL ASSESSMENT: Chronic atrial fibrillation, previously with rapid ventricular rate. Currently, has multi-valve regurgitation with dilated cardiomyopathy, status post permanent pacemaker. Elevated LFT due to excessive alcohol use. Naseem Rossi DO, PhD JYOTI
[2017-04-04] MEDS: Multivitamin With Minerals Tab PO SCH (12:10)
[2017-04-04] MEDS: Magnesium Oxide 400 mg Tab UD PO SCH ×2 (12:11→17:25)
--- NOTE | 2017-04-04 13:28 | PN ---
DATE: 04/03/2017 REASON FOR CONSULTATION AND FOLLOWUP: Atrial fibrillation, rapid rate, status post fall, alcoholic intoxication, DTs, alcohol-related cardiomyopathy. SUBJECTIVE: The patient denies any chest pain, shortness of breath, or any palpitation. Feels better. OBJECTIVE: GENERAL: Not in apparent distress. VITAL SIGNS: Temperature afebrile, heart rate 60, blood pressure 111/76. HEENT: PERRLA. Extraocular muscles intact. NECK: Supple. No carotid bruits or thyromegaly. CHEST: Clear to auscultation. HEART: S1 and S2, regular. ABDOMEN: Soft. EXTREMITIES: Clubbing and cyanosis negative. LABORATORY DATA: Blood workup: WBC 10.8, hemoglobin 10.9, hematocrit 33.5, and platelet count 76. Chemistry shows sodium 134, potassium 4.2, chloride 105, carbon dioxide 23, anion gap of 7, BUN of 10, and creatinine 0.5. IMPRESSION: Atrial fibrillation with rapid ventricular rate. Rate was controlled. Alcoholic intoxication. Impending delirium tremens. Alcohol-related cardiomyopathy, . Sick sinus syndrome, status post permanent pacemaker. RECOMMENDATION: Continue verapamil 80 mg three times a day. Continue digoxin. Continue beta-mariusz. CVA status is stable. We will discontinue telemetry. Thank you Dr. Garcia for providing us the opportunity in taking care of the patient, Tate Leal. Tere Albrecht MD
[2017-04-04] MEDS: Digoxin 250 mcg (0.25 mg) Tab PO SCH (17:24)
[2017-04-05] MEDS: Levothyroxine 25 MCG TAB PO SCH (05:40)
[2017-04-05 06:42] LABS: HEMOGLOBIN 11.2 g/dL (14.0-18.0); MEAN CELL VOLUME 105.5 fl (80.0-105.0); MEAN CORPUSCULAR HEMOGLOBIN 34.1 pg (25.0-35.0); MEAN CORPUSCULAR HGB CONC 32.4 g/dl (31.0-37.0); RBC 3.28 10^6/uL (3.5-6.1); WHITE BLOOD COUNT 3.4 10^3/ul (4.5-11.0)
[2017-04-05 06:54] LABS: ALB/GLOB RATIO 0.7 (1.1-1.8); ALT/SGPT 84 U/L (7-56); AST/SGOT 194 U/L (17-59); BLOOD UREA NITROGEN 10 mg/dL (7-21); GFR AFRICAN-AMERICAN > 60; GFR NON-AFRICAN AMERICAN > 60
[2017-04-05] MEDS: Multivitamin With Minerals Tab PO SCH (08:12)
[2017-04-05] MEDS: Magnesium Oxide 400 mg Tab UD PO SCH ×2 (09:27→17:35)
--- NOTE | 2017-04-05 10:09 | PN ---
DATE: 04/05/2017 SUBJECTIVE: I saw Mr. Ybarra this morning. This is 51-year-old white male with atrial fibrillation with rapid ventricular response as well as significant alcohol intake and abuse, currently still on DT precautions. I reviewed the case with the nurses on the Telemetry floor. The patient has had no GI issues since he has been here. No complaints of nausea, vomiting, abdominal pain, rectal bleeding etc. PHYSICAL EXAMINATION: VITAL SIGNS: I reviewed the patient's vital signs. HEENT: Noncontributory. LUNGS: Clear to auscultation. HEART: Regular rhythm. ABDOMEN: Soft. No tenderness elicited. LABORATORY DATA: I reviewed this patient's laboratory data. H and H currently clinically stable. AST/ALT ratio is fluctuating, recent value is 203/84; alkaline phosphatase 153. ASSESSMENT: This is a 51-year-old white male with history of severe alcohol abuse, admitted with atrial fibrillation and rapid ventricular response. The patient's bilirubin is elevated with AST/ALT ratio of 203/84 as of yesterday morning. Not much one can do at this particular time point except for monitoring LFT trends. He is followed by the house staff including multiple consultants. I reviewed Dr. Albrecht's note who recommended to continue his verapamil 80 three times daily with a beta-mariusz. Naseem Rossi DO, PhD JYOTI
--- NOTE | 2017-04-05 11:01 | CP.PCM.DIS ---
Provider - Provider Date of Admission: 03/29/17 08:20 Attending physician: Elsie Garcia MD Time Spent in preparation of Discharge (in minutes): 40 Diagnosis - Discharge Diagnosis (1) Alcohol withdrawal Status: Acute Priority: High (2) Alcohol withdrawal delirium Status: Acute (3) Atrial fibrillation or flutter Status: Chronic (4) Alcohol abuse counseling and surveillance Status: Acute (5) Major depressive disorder, recurrent, severe with psychotic features Status: Chronic (6) Pancytopenia Status: Chronic (7) Rib fracture Status: Acute (8) Depression Status: Chronic (9) Liver function tests abnormal Status: Chronic Hospital Course - Lab Results Lab Results: Most Recent Lab Values WBC 3.4 10^3/ul (4.5-11.0) L 04/05/17 06:00 RBC 3.28 10^6/uL (3.5-6.1) L 04/05/17 06:00 Hgb 11.2 g/dL (14.0-18.0) L 04/05/17 06:00 Hct 34.6 % (42.0-52.0) L 04/05/17 06:00 MCV 105.5 fl (80.0-105.0) H 04/05/17 06:00 MCH 34.1 pg (25.0-35.0) 04/05/17 06:00 MCHC 32.4 g/dl (31.0-37.0) 04/05/17 06:00 RDW 17.0 % (11.5-14.5) H 04/05/17 06:00 Plt Count 97 10^3/uL (120.0-450.0) L 04/05/17 06:00 MPV 12.0 fl (7.0-11.0) H 04/05/17 06:00 PT 13.9 SECONDS (9.4-12.5) H 03/30/17 05:00 INR 1.20 (0.93-1.08) H 03/30/17 05:00 APTT 32.4 Seconds (25.1-36.5) 03/30/17 05:00 Sodium 136 mmol/L (132-148) 04/05/17 06:00 Potassium 3.9 mmol/L (3.6-5.0) 04/05/17 06:00 Chloride 105 mmol/L (98-107) 04/05/17 06:00 Carbon Dioxide 23 mmol/L (21-33) 04/05/17 06:00 Anion Gap 12 (10-20) 04/05/17 06:00 BUN 10 mg/dL (7-21) 04/05/17 06:00 Creatinine 0.6 mg/dl (0.8-1.5) L 04/05/17 06:00 Est GFR ( Amer) > 60 04/05/17 06:00 Est GFR (Non-Af Amer) > 60 04/05/17 06:00 Random Glucose 88 mg/dL (70-110) 04/05/17 06:00 Hemoglobin A1c 4.6 % (4.2-6.5) 03/30/17 06:00 Calcium 9.0 mg/dL (8.4-10.5) 04/05/17 06:00 Phosphorus 2.7 mg/dL (2.5-4.5) 04/04/17 05:30 Magnesium 1.8 mg/dL (1.7-2.2) 04/04/17 05:30 Total Bilirubin 13.9 mg/dL (0.2-1.3) H 04/05/17 06:00 Direct Bilirubin 7.3 mg/dL (0.0-0.4) H 03/30/17 09:46 AST 194 U/L (17-59) H 04/05/17 06:00 ALT 84 U/L (7-56) H 04/05/17 06:00 Alkaline Phosphatase 158 U/L (38-126) H 04/05/17 06:00 Ammonia 23 umol/L (9-33) 04/01/17 06:30 Lactate Dehydrogenase 662 U/L (333-699) 03/29/17 06:30 Total Creatine Kinase 42 U/L (35-230) 03/29/17 06:30 Troponin I < 0.01 ng/mL 03/29/17 06:30 Total Protein 7.1 g/dL (5.8-8.3) 04/05/17 06:00 Albumin 3.0 g/dL (3.0-4.8) 04/05/17 06:00 Globulin 4.1 gm/dL 04/05/17 06:00 Albumin/Globulin Ratio 0.7 (1.1-1.8) L 04/05/17 06:00 Triglycerides 89 mg/dL (35-160) 03/30/17 05:30 Cholesterol 124 mg/dL (130-200) L 03/30/17 05:30 LDL Cholesterol Direct 74 mg/dL (0-129) 03/30/17 05:30 HDL Cholesterol 27 mg/dL (29-60) L 03/30/17 05:30 TSH 3rd Generation 4.74 mIU/mL (0.46-4.68) H 03/30/17 06:30 Alcohol, Quantitative 146 mg/dL (0-10) H 03/29/17 06:30 - Hospital Course Hospital Course: Mr. Tate liang a is a 51 year old male with a past medical history of dilated cardiomyopathy s/p single chamber ventricular pacemaker placement, chronic atrial fibrillation, alcohol abuse w/ severe withdrawals, thrombocytopenia, peptic ulcer disease and depression who presented with complaints of bruising and chest wall pain status post slipping yesterday while getting out of the shower. Rib XR showed minimal displacement fracture of R 7th rib. Upon admission to emergency department patient was found to be in atrial fibrillation with rapid ventricular response. Alcohol level was elevated on admission. Patient was placed on telemetry, and treated with Cardizem, Digoxin and Lopressor for rate control. Cardio, Psych and GI Were consulted for patient' s medical and psych conditions. CIWA protocol was started, and patient required Ativan and Geodon. Patient required 1:1 observation for severe withdrawals and agitation as well as suicidality. Cardizem drip was required for a few days and pt required Verapamil after coming off drip. Midline was placed due to difficulty with peripheral venous access. Patient's condition improved and he no longer required 1:1 observation. Patient also received PT eval and treatment and continued education about alcohol cessation and dangers of continuing to drink on his liver, as his enzymes are chronically elevated. Patient's condition improved, but he remains in Afib but no longer in RVR. Patient will be discharged to psych unit for continued psych treatments for his depression and other psych issues. Patient offers no complaints and over all has improved significantly and is no longer going through alcohol withdrawals. Patient is medically stable for discharge. Patient is being discharged with new medications : Verapamil, Atenolol, Digoxin, Synthroid, Folic Acid, MV and thiamine, and will follow up with PMD after discharge. Discharge Exam - Additional Findings Additional findings: - Constitutional Appears: No Acute Distress - Head Exam Head Exam: ATRAUMATIC, NORMAL INSPECTION, NORMOCEPHALIC - Eye Exam Eye Exam: EOMI, Normal appearance, PERRL Pupil Exam: NORMAL ACCOMODATION, PERRL - ENT Exam ENT Exam: Mucous Membranes Moist, Normal Exam - Respiratory Exam Respiratory Exam: Clear to Ausculation Bilateral, NORMAL BREATHING PATTERN - Cardiovascular Exam Cardiovascular Exam: REGULAR RHYTHM, +S1, +S2. absent: Murmur - GI/Abdominal Exam GI & Abdominal Exam: Soft, Normal Bowel Sounds. absent: Tenderness - Neurological Exam Neurological Exam: Alert, Awake, CN II-XII Intact, Oriented x3 - Psychiatric Exam Psychiatric exam: Normal Affect, Normal Mood - Skin Skin Exam: Dry, Intact, Normal Color, Warm Discharge Plan - Discharge Medications Prescriptions: Atenolol [Tenormin] 25 mg PO DAILY #30 tab Digoxin [Lanoxin] 0.125 mg PO DAILY #30 tab Folic Acid 1 mg PO DAILY #30 tab Levothyroxine [Synthroid] 25 mcg PO 0600 #30 tab Multimineral/Multivitamin [Therapeutic-M Tab] 1 tab PO 0800 #30 tab Thiamine [Vitamin B1 Tab] 100 mg PO DAILY #30 tab Verapamil [Calan Tab] 80 mg PO TID #90 tab - Follow Up Plan Condition: SERIOUS Disposition: DISCHARGE TO PSYCH HOSPITAL Instructions: Abuse of Alcohol (DC) Additional Instructions: Patient is being discharged to the psych unit - please avoid alcohol and other substance abuse - please continue your home medications - please start taking atenolol, digoxin, verapamil, multivitamin, folic acid and thiamine as prescribed - please follow up with your primary doctor within 1 week - if you experience any fevers/chills, nausea/vomiting, shaking, or hallucinations, please return to ER for evaluation Referrals: Kenneth Gandhi MD [Family Provider] -
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
[2017-04-05] MEDS: oxyCODONE 5 mg Immediate Release Tab PO PRN (15:11)
[2017-04-05] MEDS: Digoxin 250 mcg (0.25 mg) Tab PO SCH (17:35)
[2017-04-06 06:11] VITALS: O2SAT 98
[2017-04-06] MEDS: Levothyroxine 25 MCG TAB PO SCH (06:32)
[2017-04-06 07:49] LABS: HEMOGLOBIN 10.4 g/dL (14.0-18.0); MEAN CELL VOLUME 104.9 fl (80.0-105.0); MEAN CORPUSCULAR HGB CONC 32.4 g/dl (31.0-37.0); MEAN PLATELET VOLUME 11.7 fl (7.0-11.0); RBC 3.06 10^6/uL (3.5-6.1); RED CELL DISTRIBUTION WIDTH 16.6 % (11.5-14.5); WHITE BLOOD COUNT 3.7 10^3/ul (4.5-11.0)
[2017-04-06 08:12] LABS: ALBUMIN 2.8 g/dL (3.0-4.8); ALT/SGPT 87 U/L (7-56); AST/SGOT 178 U/L (17-59); BLOOD UREA NITROGEN 12 mg/dL (7-21); CALCIUM 8.6 mg/dL (8.4-10.5); GFR AFRICAN-AMERICAN > 60; GFR NON-AFRICAN AMERICAN > 60
[2017-04-06 08:17] LABS: ALB/GLOB RATIO 0.7 (1.1-1.8)
--- NOTE | 2017-04-06 08:40 | PN ---
DATE: 04/05/2017 REASON FOR CONSULTATION AND FOLLOWUP: Atrial fibrillation with rapid rate, status post alcoholic intoxication, DTs, and alcoholic related cardiomyopathy. SUBJECTIVE: The patient denies any chest pain, shortness of breath, or any palpitation. OBJECTIVE: GENERAL: Not in apparent distress. VITAL SIGNS: As follows; temperature afebrile, heart rate 81, and blood pressure 101/73. HEENT: PERRLA. Extraocular muscles intact. NECK: Supple. No carotid bruits or thyromegaly. CHEST: Clear to auscultation. HEART: S1 and S2 regular. ABDOMEN: Soft. EXTREMITIES: Clubbing and cyanosis negative. LABORATORY DATA: Blood workup as follows; WBC 3.4, hemoglobin 11.8, hematocrit 34.6, and platelet count 97. Chemistry shows sodium 130, potassium 3.9, chloride 105, carbon dioxide 23, anion gap 12, BUN 10, and creatinine 0.6. IMPRESSION: Chronic atrial fibrillation, status post sick sinus syndrome, status post permanent pacemaker, alcohol related cardiomyopathy, decreased left ventricular function secondary to nonischemic cardiomyopathy, four-chamber dilatation, and mitral regurgitation and tricuspid regurgitation. Admitted with alcoholic intoxication after a fall and thrombocytopenia. RECOMMENDATIONS: Continue verapamil. Continue low-dose beta-mariusz. Continue levothyroxine. The patient is not a candidate for long-term anticoagulation because history of frequent fall. At this time, also the patient came in with a fall and bruise in the chest with thrombocytopenia secondary to alcohol related , blood alcohol level 149. Continue verapamil and continue beta-mariusz. We will follow with you. Thank you Dr. Garcia for providing us the opportunity in taking care of the patient, Elvis Ybarra. Tere Albrecht MD
--- NOTE | 2017-04-06 08:51 | PN ---
DATE: 04/06/2017 SUBJECTIVE: I saw Mr. Ybarra this morning. He is a 51-year-old white male, admitted with atrial fibrillation with rapid ventricular response. The patient is known to have a problem with significant alcohol intake and consultation was called for evaluation for increased LFTs. I reviewed this case with the nurses on the floor. The patient had no problems last night as far as nausea, vomiting, abdominal pain, rectal bleeding, etc. PHYSICAL EXAMINATION: VITAL SIGNS: I reviewed this patient's vital signs. HEENT: Noncontributory. LUNGS: Decreased breath sounds, basilar. HEART: Irregular rhythm. ABDOMEN: Soft. No tenderness elicited. LABORATORY DATA: I reviewed this patient's laboratory data. Lab data is pending for this morning. Note that bilirubin is up to in the range of 13-14 AST, ALT ratio as of yesterday morning 194, 84. Alkaline phosphatase 158. ASSESSMENT: A 51-year-old male, significant alcohol abuse with elevated LFTs as a result of the latter. Again, there is not much to offer in this particular case. Suggest continue monitoring LFT trends. Note that the bilirubin downtrend tends to lag behind the decrease in transaminases. DF calculation does not suggest beneficial effect of steroids. Continue to observe this patient for DTs. The patient still wanted being followed by Cardiology and is still in a telemetry floor. Naseem Rossi DO, PhD MTDJd
--- NOTE | 2017-04-06 08:54 | PN ---
DATE: 04/05/2017 He is being seen today for a followup consultation. PRESENTATION: The patient is a 51-year-old male seen at bedside. The patient was admitted to the hospital on 03/29/2017 due to injuries he received when falling at home. He came in complaining of left lower back discomfort radiating to lower left buttock area. He was noted to be in atrial fibrillation with rapid ventricular response, so he was admitted. He then went through detox through alcohol withdrawal as he is a daily drinker and has recently cleared from that. This consult was called due to his chronic alcoholism as the fact that he lives alone. The patient continues sad and tearful, he indicates he is depressed. He has passive suicidal thoughts, but he does not have a plan nor does he wishes to . He indicates that he is willing to go on to the Inpatient Psychiatric Unit in order to, we are going to plan for rehab and follow up. His med seeking complaining a lot about his back and indicating to me that he thinks he has withdrawals starting again, which would be very unusual. However, he is not shaky, he is not sweaty and there are no external indications that he is in fact back in to withdrawal. PHYSICAL EXAMINATION: CURRENT VITAL SIGNS: Include temperature of 98.7, pulse rate is 66, blood pressure 106/67, respiratory rate of 18. Having spoken with Dr. Garcia, I expect the patient will be medically cleared today and then can be transferred to when there is a bed. His cardiac symptoms have stabilized. MENTAL STATUS EXAM: The patient is alert and oriented x3. His eye contact is fair. His behavior is cooperative. His speech, rate, and volume are within normal limits. Mood is sad. Affect is constricted. Thoughts are goal directed, thought concrete, and simplistic. He denies being suicidal or homicidal; however he is having passive wishes to and indicates he misses his parents and wants to be with them. He denies the presence of hallucinations, delusions, or paranoia. His concentration and his focus are scattered. His memory both short and longterm appears to have some impairment. His appetite and his sleep are impaired. DIAGNOSTIC IMPRESSION: Alcohol dependence; severe, chronic ongoing; mood disorder, unspecified. PLAN: When the patient is medically cleared, he is concerned to have being transferred to which is a Psychiatric Unit here at [facility] when a bed becomes available. He continues to complain of depression and passive suicidal thoughts. To be transferred when a bed is cleared. Thank you for this consult. Alison Russo APN
[2017-04-06] MEDS: Magnesium Oxide 400 mg Tab UD PO SCH ×2 (09:57→18:31)
[2017-04-06] MEDS: Multivitamin With Minerals Tab PO SCH (10:04)
[2017-04-06] MEDS ORDERED: Potassium Chloride 20 mEq ER Tab PO ONE (11:40)
[2017-04-06 12:17] VITALS: RESP 18
[2017-04-06] MEDS: oxyCODONE 5 mg Immediate Release Tab PO PRN (14:19)
--- NOTE | 2017-04-06 17:19 | PN ---
DATE: 04/06/2017 REASON FOR CONSULTATION AND FOLLOWUP: Atrial fibrillation with rapid rate, status post alcoholic intoxication, DTs, and alcoholic-related cardiomyopathy. SUBJECTIVE: The patient denies any chest pain, shortness or breath and any palpitation. OBJECTIVE: GENERAL: Not in apparent distress. VITAL SIGNS: As follows; temperature afebrile, heart rate 81, and blood pressure 107/81. HEENT: PERRLA. Extraocular muscles intact. NECK: Supple. No carotid bruits or thyromegaly. CHEST: Clear to auscultation. HEART: S1 and S2 regular. ABDOMEN: Soft. EXTREMITIES: Clubbing and cyanosis are negative. LABORATORY DATA: Blood workup as follows; WBC 3.7, hemoglobin 10.7, hematocrit 32.1, and platelet count 113. Chemistry shows sodium 132, potassium 3.7, chloride 101, carbon dioxide 22, anion gap 13, BUN 12, and creatinine 0.6. Total protein 6.8, albumin 2.8, albumin globulin ratio 0.7. IMPRESSION: Hypoalbuminemia mild, which is not present on admission; hypokalemia; anemia; thrombocytopenia; admitted with acute alcoholic intoxication; chronic atrial fibrillation with rapid ventricular rate; history of frequent falls; not a candidate for long-term anticoagulation because of frequent falls. RECOMMENDATION: Continue metoprolol, continue digoxin, continue verapamil. Possible discharge home when he is stable. We will discontinue telemetry. Supplement potassium. Thank you Dr. Garcia for providing us the opportunity in taking care of the patient. Tere Albrecht MD
--- NOTE | 2017-04-06 17:37 | CP.PCM.PN ---
Subjective - Date & Time of Evaluation Date of Evaluation: 04/06/17 Time of Evaluation: 11:37 - Subjective Subjective: Chico Patel PGY1 IM Progress Note for Dr. Ndiaye Hospitalist Service Patient was seen and examined at bedside. Patient is waiting for placement in psych unit pending bed clearance. Denies any acute overnight events, and states that he has been less shaky and more stable on his feet. Patient denies chest pain, shortness of breath, cough, fevers/chills, nausea/vomiting/diarrhea, abdominal pain, changes in bowel/urinary habits. Objective - Vital Signs/Intake and Output Vital Signs (last 24 hours): Temp Pulse Resp BP Pulse Ox 98 F 71 18 102/63 98 04/06/17 12:00 04/06/17 14:24 04/06/17 12:00 04/06/17 14:24 04/06/17 06:00 Intake and Output: 04/06/17 04/06/17 06:59 18:59 Intake Total 320 Output Total 0 Balance 320 - Medications Medications: Current Medications Acetaminophen (Tylenol 325mg Tab) 650 mg PO Q6H PRN PRN Reason: Headache Atenolol (Tenormin) 25 mg PO DAILY [facility] Last Admin: 04/06/17 09:58 Dose: 25 mg Digoxin (Lanoxin) 0.25 mg PO 1800 [facility] Last Admin: 04/05/17 17:35 Dose: 0.25 mg Famotidine (Pepcid) 20 mg PO DAILY [facility] Last Admin: 04/06/17 09:57 Dose: 20 mg Folic Acid (Folic Acid) 1 mg PO DAILY [facility] Last Admin: 04/06/17 09:57 Dose: 1 mg Levothyroxine Sodium (Synthroid) 25 mcg PO 0600 [facility] Last Admin: 04/06/17 06:32 Dose: 25 mcg Lorazepam (Ativan) 1 mg IVP Q2 PRN; Protocol PRN Reason: Symptoms of alcohol withdrawl Last Admin: 04/01/17 14:10 Dose: 1 mg Magnesium Oxide (Mag-Ox) 400 mg PO BID [facility] Last Admin: 04/06/17 09:57 Dose: 400 mg Multivitamins/Minerals (Therapeutic-M Tab) 1 tab PO 0800 [facility] Last Admin: 04/06/17 10:04 Dose: 1 tab Ondansetron HCl (Zofran Inj) 4 mg IVP Q6H PRN PRN Reason: Nausea/Vomiting Last Admin: 04/01/17 14:11 Dose: 4 mg Oxycodone HCl (Oxycodone Immediate Release Tab) 5 mg PO Q6H PRN PRN Reason: Pain, severe (8-10) Last Admin: 04/06/17 14:19 Dose: 5 mg Quetiapine Fumarate (Seroquel) 12.5 mg PO HS [facility] PRN Reason: Protocol Last Admin: 04/05/17 22:12 Dose: 12.5 mg Thiamine HCl (Vitamin B1 Tab) 100 mg PO DAILY [facility] Last Admin: 04/06/17 09:57 Dose: 100 mg Verapamil HCl (Verapamil Inj) 2.5 mg IVP Q4H PRN PRN Reason: for heart rate >140 Last Admin: 03/31/17 03:58 Dose: 2.5 mg Verapamil HCl (Calan Tab) 80 mg PO TID [facility] Last Admin: 04/06/17 14:24 Dose: 80 mg Ziprasidone (Geodon Inj) 10 mg IM Q12 PRN; Protocol PRN Reason: severe agitation - Labs Labs: 04/06/17 06:20 04/06/17 06:00 PT 13.9 SECONDS (9.4-12.5) H 03/30/17 05:00 INR 1.20 (0.93-1.08) H 03/30/17 05:00 APTT 32.4 Seconds (25.1-36.5) 03/30/17 05:00 - Additional Findings Additional findings: - Constitutional Appears: No Acute Distress - Head Exam Head Exam: NORMAL INSPECTION - Eye Exam Eye Exam: Normal appearance - ENT Exam ENT Exam: Normal Exam - Neck Exam Neck Exam: Normal Inspection - Respiratory Exam Respiratory Exam: Clear to Ausculation Bilateral. absent: Rales, Rhonchi, Wheezes - Cardiovascular Exam Cardiovascular Exam: RRR, +S1, +S2. absent: Gallop, Rubs, Murmur - GI/Abdominal Exam GI & Abdominal Exam: Soft. absent: Distended, Guarding, Tenderness, Rebound - Back Exam Back Exam: Normal Exam - Neurological Exam Neurological Exam: Alert, Awake, Oriented x3 - Psychiatric Exam Psychiatric exam: Normal Affect, Normal Mood - Skin Skin Exam: Dry, Intact, Normal Color, Warm Assessment and Plan (1) Alcohol withdrawal Status: Acute (2) Alcohol withdrawal delirium Status: Acute (3) Atrial fibrillation or flutter Status: Chronic (4) Alcohol abuse counseling and surveillance Status: Acute (5) Major depressive disorder, recurrent, severe with psychotic features Status: Chronic (6) Pancytopenia Status: Chronic (7) Rib fracture Status: Acute (8) Depression Status: Chronic (9) Liver function tests abnormal Status: Chronic - Assessment and Plan (Free Text) Assessment: 51 year old male with a past medical history of dilated cardiomyopathy s/p single chamber ventricular pacemaker placement, chronic atrial fibrillation, alcohol abuse, thrombocytopenia, peptic ulcer disease and depression who presented with complaints of bruising and chest wall pain s/p fall while getting out of the shower. Patient found to be in atrial fibrillation. Patient underwent alcohol withdrawals w/ delirium tremens and periods of agitation, however, they have all resolved now. Plan: 1. Alcohol Withdrawals - Continue with folic Acid, MV, and thiamine daily - CIKS protocol - Ativan ALLIE decreased to 2 mg q6, 1 mg q2 prn (not being required), will - Geodon 10 mg IM Q12 prn for agitation (not being required) - Continue with seizure precautions, aspiration precautions, bed rest, fall precautions - Heart healthy diet - Head above bed 30 degrees - Vitals signs q2 - midline placed 2. Alcohol hepatitis - Patient has a history of transaminitis; liver enzymes downtrending - Child-Rodriguez score 7; Abdominal surgery sandra-operative mortality is 30%. - MELD score predicts 6.0% estimated 3-month mortality. - Discriminant factor 20.7 - No steroids being used 2/2 risk of bleeding in the patient 3. Atrial fibrillation with rapid ventricular response - Cardiology consulted; recommendations appreciated - Continue cardizem, digoxin, verapmil 4. Alcoholic Bone Marrow Suppression - Pancytopenic - Cont to monitor 5. Dilated Cardiomyopathy - Cardiology consulted - Continue with cardiac medication regimen as listed above 6. Right 7th Rib Fracture - Rib x-ray reveals minimal displacement fracture of right 7th rib; not complaining of pain at the moment - Chest x-ray reveals no new abnormalities - Monitor 7. Hypertension - BP well controlled, continue to monitor 8. Hyperbilirubinemia - Gastroenterology consulted - Cont to monitor 9. Depression - Psychiatry consulted - Cont Seroquel 10. Peptic ulcer disease - Pepcid 20 mg PO daily 11. Hypothyroidism - Cont Synthroid DVT/GI prophylaxis DVT prophylaxis with SCDs only, due to history of alcohol abuse,constant injuries and falls, thrombocytopenia/protonix. HAS-BLED score: risk was 5.8% , patient is at high risk for major bleeding. Pepcid for GI ppx The patient was seen, examined and discussed with attending, Dr. Senthil Patel PGY1 Pager # [phone]
[2017-04-06 17:56] VITALS: BP 106/73; PULSE 74; TEMP 98.7
[2017-04-06] MEDS: Digoxin 250 mcg (0.25 mg) Tab PO SCH (18:32)
[2017-04-06 18:40] VITALS: PULSE 70
--- NOTE | 2017-04-07 08:36 | PN ---
DATE: 04/06/2017 He is being seen today for a followup consultation. PRESENTATION: The patient is a 51-year-old male seen in his hospital bed. He is continues quite jaundiced. The patient was originally admitted on 03/29/2017 having presented because he had fallen in the shower and he has pain in his flank and back. While being examined, I noticed he had some atrial fibrillation with rapid ventricular response, so the patient was admitted. The patient has been a daily drinker and once hospitalized began to go through the DT's to withdrawal. The patient consult was called due to the fact that he has chronic alcoholism and he lives alone. The patient today is frustrated and angry. He indicates that he is in pain and everyone is ignoring this. He indicates that he would like to sign out of the hospital. On further conversation, the patient refuses to answer whether or not he is suicidal, comments what reason to why I have to live, I am very sick, my heart is not good, I missed my parents. I pointed out to him that under the circumstances that he really does need to be transferred to the Psychiatric Unit as supposed to discharge because he is still significantly depressed and I am concerned about his safety. Patient agrees to stay. We are waiting for a bed on 5B. PHYSICAL EXAMINATION: CURRENT VITAL SIGNS: Include temperature of 98.7, pulse rate of 74, blood pressure 106/73, respiratory rate of 18. Patient is not having any sweating, any shaking, any external symptoms of withdrawal; however, med seeking behaviors are noted. MENTAL STATUS EXAM: The patient is alert and oriented x3. His eye contact is fair. His behavior is cooperative. His speech, rate, and volume are within normal limits. Mood is blunted. Affect is constricted. Thoughts are goal directed, but concrete. He does not want to answer the questions to whether or not he is suicidal and he does appear sad and he gets tearful when we talk about this. He denies being homicidal. Denies the presence of hallucinations, delusions, or paranoia, pt does not present to be paranoid. His concentration and focus are poor. He still appears to have some process in slowing of his cognitions. His memory both short and fci has some deficits more probably due to the fact that of his withdrawals clearing. His appetite is good and his sleeping is improving. DIAGNOSES: Major depression, moderate without psychotic features, recurrent alcohol use disorder, severe, chronic, alcohol withdrawal. PLAN: The patient is agreeable to sending into 5B when a bed becomes available and he indicates that he is willing to work with our clinical social worker and planning his after care in terms of rehab and hopefully he will be transferred as soon as a bed is available. pt might benefit from antidepressants, will consider Prozac. pt was educated about risk/benefits and alternatives of meds, interaction among meds checked, discussed with pt. Thank you for the consult. We will continue to follow. Alison Russo APN JYOTI
== END 2017-04-06 22:39 | DRG 138 ==
LOC: ED 02:08 → ERH 08:20 → 2RSO 11:38
PROVIDERS: ADMIT Internal Medicine; ATTEND Internal Medicine
DX: I48.0 Paroxysmal atrial fibrillation (principal); F10.231 Alcohol dependence with withdrawal delirium; D61.818 Other pancytopenia; F33.3 Major depressive disorder, recurrent, severe with psychotic symptoms; I08.1 Rheumatic disorders of both mitral and tricuspid valves; I11.0 Hypertensive heart disease with heart failure; I50.9 Heart failure, unspecified; I42.0 Dilated cardiomyopathy; I42.6 Alcoholic cardiomyopathy; E87.6 Hypokalemia; S22.31XA Fracture of one rib, right side, initial encounter for closed fracture; E88.09 Other disorders of plasma-protein metabolism, not elsewhere classified; I48.2 Chronic atrial fibrillation; I49.5 Sick sinus syndrome; M54.30 Sciatica, unspecified side; I25.10 Atherosclerotic heart disease of native coronary artery without angina pectoris; K27.9 Peptic ulcer, site unspecified, unspecified as acute or chronic, without hemorrhage or perforation; K70.10 Alcoholic hepatitis without ascites; Y90.6 Blood alcohol level of 120-199 mg/100 ml; F17.210 Nicotine dependence, cigarettes, uncomplicated; E03.9 Hypothyroidism, unspecified; R29.6 Repeated falls; W18.2XXA Fall in (into) shower or empty bathtub, initial encounter; Y93.E1 Activity, personal bathing and showering; Y92.091 Bathroom in other non-institutional residence as the place of occurrence of the external cause; Z95.0 Presence of cardiac pacemaker; Z98.84 Bariatric surgery status; Z91.14 Patient's other noncompliance with medication regimen; Z91.19 Patient's noncompliance with other medical treatment and regimen

== ENCOUNTER 2017-04-06 22:44 | Inpatient (IN) | payer MEDICAID ==
[2017-04-06] MEDS ORDERED: Magnesium Hydroxide Susp 30 ml UD PO PRN (23:33)
--- NOTE | 2017-04-07 03:04 | PCM.BM ---
<Carmelita Miramontes - Last Filed: 04/07/17 03:03> Treatment Plan Problems - Problems identified on initial assessmt Depression Date Initiated: 04/06/17 Time Initiated: 22:45 Status: Active Treatment assets and liabiliti Patient Assests: cooperative, self-reliant, ADL independent, negotiates basic needs Patient Liabilities: live alone, financial problems, poor support system, relationship conflicts, substance abuse, medical problems, auditory impairment, visual impairment - Milieu Protocol Maintain good personal hygiene: daily Encourage regular showers, daily Remind patient to perform daily oral care, daily Assist patient to perform ADL's Conduct patient checks and document Observation sheet: Q15 minutes Maintain personal safety: every shift Educate patient to report safety concerns to staff, every shift Monitor environment for contraband/sharps Medication safety: Monitor for expected outcome, potential side effects: every shift, Assess barriers to learning: every shift, Assess readiness for medication education: every shift Discharge/Continuing Care - Education Needs Education Needs: Patient Medication, Patient Diagnosis/Disease Process, Patient Coping Skills, Patient Community resources - Discharge Discharge Criteria: Tolerates medication w/o severe side effects, Normal sleep pattern <Alison Russo - Last Filed: 04/07/17 07:53> - Diagnosis (1) Major depressive disorder, recurrent severe without psychotic features Status: Acute Interventions: Psychoeducation Psychopharmacology/adjustment of medications as needed/ monitoring possible side effects Evaluate pt on daily basis Compliance with medications and follow up appointments Suicide and homicide risk assessment and prevention Relapse prevention Reduction of symptoms Improve functional status Family involvement As outpatient: cognitive behavioral therapy 04/07/17 07:56 (2) Alcohol dependence Status: Acute Interventions: Monitor for withdrawal symptoms Medical detoxification if necessary Pharmacotherapy for alcohol/benzos/opioid dependence Maintaining sobriety Relapse prevention Possible rehabilitation Motivational interviewing 12-step programs: AA meetings Referral to Rehab/ IOP Family involvement 04/07/17 07:56 (3) Atrial fibrillation Status: Acute Interventions: Pt will be seen by medical team as needed Medications will be confirmed and resumed Additional consultation by specialists as needed Lab work as needed (CBC, CMP, TSH, free T4, UA, Urine test for females as needed) CXR as needed EKG Physical therapy valuation as needed 04/07/17 07:58 <Magdalena Olivarez - Last Filed: 04/10/17 13:47>
[2017-04-07] MEDS: Levothyroxine 25 MCG TAB PO SCH (05:27)
[2017-04-07 08:13] LABS: GLUCOSE,FASTING 94 mg/dL (65-110); HDL CHOLESTEROL 9 mg/dL (29-60)
--- NOTE | 2017-04-07 08:22 | PCM.PSYCH ---
Initial Psychiatric Evaluation - Initial Psychiatric Evaluation Type of Admission: Voluntary Legal Status: Capacity Chief Complaint (in patient's own words): "I know I need to be here" Patient's Reaction to Hospitalization: Patient is a 51 year old white male who was first admitted to the hospital on March 29 2017, presenting in the ER with back pain related to a fall in the shower. He was found to be in atrial fibrillation with rapid ventricular response. He was admitted to the telemetry unit and subsequently went into alcohol withdrawal. He was followed by psychiatry due to concerns regarding his severe alcoholism and living alone, indicated that he was depressed and expressed suicidal ideation. He consented to be voluntarily admitted to the inpatient psychiatric unit with the plan being that he will be referred for longer term alcohol treatment on discharge. Due to the severity of patients symptoms and aggressive/disorganized behavior , patient could not be maintained in an outpatient setting, needs further evaluation and stabilization in acute psychiatric unit. History of Present Illness and Precipitating Events: Patient is a 51 year old white male seen today in treatment team. He is jaundiced and ADL's are poor. 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 He is supported by money left to him by his father who 1 1/2 ears ago. His uncle is his POA and handles patient's finances. He has given permission for us to speak with his uncle. Prior to admission, patient states he was "drinking 24/7", beer only as other alcohol will trigger his atrial fibrillation. He is isolated in his apartment, and has little socialization except when he walks to the bar. He has been hospitalized here psychiatrically once before, but did not follow up with the medications prescribed for him which were gabapentin 300mg one po TID, Prozac 40mg one po AM, and Remeron 30mg one po HS. He has never had a suicide attempt. Of note, patient's plan for suicide at that time was to shoot himself. His uncle removed all the guns into a locked box which he keeps at his house so patient has no current access to guns. Medically he has a history of gastric bypass, was diagnosed with atrial fibrillation at age 15. He denies any history, and legally has had a DWI recently so he does not drive. Social and Developmental History: Patient grew up here in [place], was an only child. Mother 8 years ago from ovarian cancer, Father 1 1/2 years ago from liver cancer. He has a large extended family that he was very involved with growing up. He indicates his childhood was happy. He was very close to both parents and indicates he has "never gotten over" their loss especially his father. He did well in school and had many friends. 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 He got and had 2 children, girls who are now young adults in college. He does not see them but his father left money for their schooling also. His marriage ended acrimoniously over his drinking. He has attended AA in the past, is not jainism. Current Medications: Active Medications Generic Name Dose Route Start Last Admin Trade Name Freq PRN Reason Stop Dose Admin Acetaminophen 650 mg 04/06/17 23:33 Tylenol 325mg Tab PO Q4 PRN Pain, Mild (1-3) Al Hydrox/Mg Hydrox/Simethicone 30 ml 04/06/17 23:33 Maalox Plus 30 Ml PO DAILY PRN Upset Stomach Atenolol 25 mg 04/07/17 08:00 Tenormin PO DAILY [facility] Digoxin 0.25 mg 04/07/17 18:00 Lanoxin PO 1800 ALLIE Famotidine 20 mg 04/07/17 08:00 Pepcid PO DAILY [facility] Folic Acid 1 mg 04/07/17 08:00 Folic Acid PO DAILY [facility] Levothyroxine Sodium 25 mcg 04/07/17 06:00 04/07/17 05:27 Synthroid PO 25 mcg 0600 [facility] Administration Lorazepam 2 mg 04/06/17 23:38 Ativan PO Q6 PRN alcohol withdrawal Protocol Magnesium Hydroxide 30 ml 04/06/17 23:33 Milk Of Magnesia PO DAILY PRN Constipation Magnesium Oxide 400 mg 04/07/17 08:00 Mag-Ox PO BID [facility] Multivitamins/Minerals 1 tab 04/07/17 08:00 Therapeutic-M Tab PO 0800 [facility] Ondansetron HCl 4 mg 04/06/17 23:38 Zofran Tab PO Q8H PRN Nausea/Vomiting Oxycodone HCl 5 mg 04/06/17 23:38 Oxycodone Immediate Release Tab PO Q6H PRN Pain, severe (8-10) Quetiapine Fumarate 25 mg 04/06/17 23:45 04/06/17 23:56 Seroquel PO 25 mg HS ALLIE Administration Protocol Thiamine HCl 100 mg 04/07/17 08:00 Vitamin B1 Tab PO DAILY [facility] Verapamil HCl 80 mg 04/07/17 08:00 Calan Tab PO TID ALLIE Ziprasidone 10 mg 04/06/17 23:38 Geodon Inj IM Q12 PRN severe agitation Protocol Medication Rationale: Patient will be started on Prozac 20mg po Daily to treat patient's depressive symptoms. Past Psychiatric History - Past Psychiatric History Previous Treatment History: Inpatient Prior Professional Help: Has been in multiple rehabs for alcohol dependence Prior Psychiatric Treatment: One inpatient psychiatric admission At [facility]: [facility], 10/2014 History of Abuse: Denied History of ETOH/Drug Use: Alcohol drug of choice denies use of any other drugs. Is a blackout drinker, has not had seizures from alcohol, recently had a DWI does not have a license. He started drinking heavily 1 1/2 years ago after the of his father. He say he drinks "10/10 non stop", beer only as other alcohol tends to cause his atrial fibrillation to start. He has been to [facility] many times for alcohol withdrawal. History of Family Illness: "my family is all kooks, there is something wrong with everyone" Pertinent Medical Hx (Current Medical&Sleep Prob, Allergies): Allergies Allergy/AdvReac Type Severity Reaction Status Date / Time No Known Allergies Allergy Verified 04/06/17 23:28 Atenolol [Tenormin] 25 mg PO DAILY #30 tab 04/05/17 Digoxin [Lanoxin] 0.125 mg PO DAILY #30 tab 04/05/17 Folic Acid 1 mg PO DAILY #30 tab 04/05/17 Levothyroxine [Synthroid] 25 mcg PO 0600 #30 tab 04/05/17 Multimineral/Multivitamin [Therapeutic-M Tab] 1 tab PO 0800 #30 tab 04/05/17 Thiamine [Vitamin B1 Tab] 100 mg PO DAILY #30 tab 04/05/17 Verapamil [Calan Tab] 80 mg PO TID #90 tab 04/05/17 Review of Systems - Review of Systems Systems not reviewed;Unavailable: Acuity of Condition - EENT Eyes: As Per HPI Ears: As Per HPI Nose/Mouth/Throat: As Per HPI - Cardiovascular Cardiovascular: As Per HPI - Respiratory Respiratory: As Per HPI - Gastrointestinal Gastrointestinal: As Per HPI - Genitourinary Genitourinary: As Per HPI - Reproductive: Male Reproductive:Male: As Per HPI - Musculoskeletal Musculoskeletal: As Par HPI - Integumentary Integumentary: As Per HPI - Neurological Neurological: As Per HPI - Psychiatric Psychiatric: As Per HPI - Endocrine Endocrine: As Per HPI - Hematologic/Lymphatic Hematologic: As Per HPI Mental Status Examination - Personal Presentation Personal Presentation: Looks older than stated age Additional comments: Patient is jaundiced, skin and sclera. - Affect Affect: Blunted - Motor Activity Motor Activity: Calm - Reliability in Providing Information Reliability in Providing Information: Fair Additional comments: Patient has difficulty with sequencing and details. - Speech Speech: Disorganized - Mood Mood: Depressed - Formal Thought Process Formal Thought Process: Circumstantial - Hallucinations/Delusions Additional comments: Patient denies the presence of hallucinations , delusions, or paranoia. - Obsessions/Compulsions Obsessions: None Compulsions: None - Cognitive Functions Orientation: Person, Place, Situation, Time Sensorium: Alert Attention/Concentration: Easily distracted Estimate of Intelligence: Average - Limitations Limitations: Living alone Additional comments: Patient has a long history of chronic alcoholism, has been to rehab 9x and started drinking immediately upon discharge, minimal support. DSM 5 DX - DSM 5 DSM 5 Diagnosis: Major Depression, Recurrent, Severe, without psychotic features Alcohol Use Disorder, Severe, Chronic - Recommended/Plan of Treatment Treatment Recommendations and Plan of Treatment: Treatment plan: Milieu/structure/supportive therapy Medical consult appreciated, see medical team note for more detailed info consultation for discharge plan and social issues Med management Family involvement Follow up on labs Will monitor closely evaluation for d/c planning Pt was educated about risk/benefits and alternatives of medications, coping strategies (safety plan, suicide prevention), relapse prevention, importance of follow up with psychiatrist and therapist, stay away from drugs/alcohol/smoking Projected ELOS: 04/11/2017 Discharge Plan and Discharge Criteria: Patient will no longer be suicidal, patient will have a discharge plan to address his drinking, patient will attend AA - Smoking Cessation Smoking Cessation Initiated: No Reason for not providing: Patient is not a smoker
[2017-04-07 08:23] LABS: LDL CHOLESTEROL 65 mg/dL (0-129)
[2017-04-07] MEDS: Multivitamin With Minerals Tab PO SCH (10:04)
[2017-04-07] MEDS: Magnesium Oxide 400 mg Tab UD PO SCH ×2 (10:05→16:41)
[2017-04-07] MEDS: oxyCODONE 5 mg Immediate Release Tab PO PRN ×2 (10:12→16:41)
--- NOTE | 2017-04-07 17:41 | CP.PCM.CON ---
<AmandaChico - Last Filed: 04/07/17 18:53> History of Present Illness - History of Present Illness History of Present Illness: Chico Patel PGY1 IM Consult Note for Dr. Pacheco 51 year old male with a past medical history of dilated cardiomyopathy s/p single chamber ventricular pacemaker placement, chronic atrial fibrillation, alcohol abuse w/ severe withdrawals, alcoholic hepatitis thrombocytopenia, peptic ulcer disease and depression who presented to [facility] psych unit from med- surg unit. Patient was first admitted on March 29 2017, presenting in the ER with back pain related to a fall in the shower. He was found to be in atrial fibrillation with rapid ventricular response. He was admitted to the telemetry unit and subsequently went into alcohol withdrawal. He was followed by psychiatry due to concerns regarding his severe alcoholism and living alone, indicated that he was depressed and expressed suicidal ideation. He consented to be voluntarily admitted to the inpatient psychiatric unit with the plan being that he will be referred for longer term alcohol treatment on discharge. Currently, the patient has no complaints and is comfortable in the psych unit as he is getting to walk around more and be more active than on the medical floors. 12-pt ROS was reviewed and is otherwise unremarkable. Past medical history: as above Surgical history: Single chamber ventricular pacemaker placement Family History: non-contributory Social History: Alcohol abuse, denies tobacco use, denies illicit drug use Medications: non compliant with medications. Review of Systems - Review of Systems All systems: reviewed and no additional remarkable complaints except (as per MAR ) Past Patient History - Infectious Disease Hx of Infectious Diseases: None - Tetanus Immunizations Tetanus Immunization: Unknown - Past Medical History & Family History Past Medical History?: Yes - Past Social History Smoking Status: Former Smoker Alcohol: > 2 Drinks/Day Drugs: Denies Home Situation {Lives}: Alone - CARDIAC Hx Cardiac Disorders: Yes Hx Atrial Fibrillation: Yes Hx Pacemaker: No - PULMONARY Hx Respiratory Disorders: Yes (shortness of breath,CIGARETTES AND CIGAR SMOKER.OCCASIONAL) - NEUROLOGICAL Hx Neurological Disorder: Yes - HEENT Hx HEENT Problems: Yes (eyeglasses) Other/Comment: 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 related noise exposure - RENAL Hx Chronic Kidney Disease: No - ENDOCRINE/METABOLIC Hx Endocrine Disorders: No - HEMATOLOGICAL/ONCOLOGICAL Hx Cancer: No - INTEGUMENTARY Hx Dermatological Problems: No Other/Comment: tatoos, bruise to left abd and rib area, left eye orbit eccymosis fell at home 10/18/16 - MUSCULOSKELETAL/RHEUMATOLOGICAL Hx Musculoskeletal Disorders: Yes (RIB FX) Hx Back Pain: Yes Hx Falls: Yes Hx Fractures: Yes (Rib) - GASTROINTESTINAL Hx Gastrointestinal Disorders: Yes (ACUTE PANCREATITIS) Hx Diverticulitis: Yes Hx Liver Failure: Yes (Abnormal Liver function test) Hx Pancreatitis: Yes Hx Ulcer: Yes (PUD) - GENITOURINARY/GYNECOLOGICAL Hx Genitourinary Disorders: No - PSYCHIATRIC Hx Psychophysiologic Disorder: Yes Hx Anxiety: Yes Hx Depression: Yes Hx Substance Use: No Other/Comment: alcohol abuse and withdrawal/ delirium.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 [employer] - SURGICAL HISTORY Hx Mastectomy: No - ANESTHESIA Hx Anesthesia: Yes Hx Anesthesia Reactions: No Hx Malignant Hyperthermia: No Meds Allergies/Adverse Reactions: Allergies Allergy/AdvReac Type Severity Reaction Status Date / Time No Known Allergies Allergy Verified 04/06/17 23:28 - Medications Medications: Current Medications Acetaminophen (Tylenol 325mg Tab) 650 mg PO Q4 PRN PRN Reason: Pain, Mild (1-3) Al Hydrox/Mg Hydrox/Simethicone (Maalox Plus 30 Ml) 30 ml PO DAILY PRN PRN Reason: Upset Stomach Atenolol (Tenormin) 25 mg PO DAILY [facility] Last Admin: 04/07/17 10:05 Dose: 25 mg Digoxin (Lanoxin) 0.25 mg PO 1800 [facility] Famotidine (Pepcid) 20 mg PO DAILY [facility] Last Admin: 04/07/17 10:05 Dose: 20 mg Folic Acid (Folic Acid) 1 mg PO DAILY [facility] Last Admin: 04/07/17 10:05 Dose: 1 mg Levothyroxine Sodium (Synthroid) 25 mcg PO 0600 [facility] Last Admin: 04/07/17 05:27 Dose: 25 mcg Lorazepam (Ativan) 2 mg PO Q6 PRN; Protocol PRN Reason: alcohol withdrawal Magnesium Hydroxide (Milk Of Magnesia) 30 ml PO DAILY PRN PRN Reason: Constipation Magnesium Oxide (Mag-Ox) 400 mg PO BID [facility] Last Admin: 04/07/17 16:41 Dose: 400 mg Multivitamins/Minerals (Therapeutic-M Tab) 1 tab PO 0800 [facility] Last Admin: 04/07/17 10:04 Dose: 1 tab Ondansetron HCl (Zofran Tab) 4 mg PO Q8H PRN PRN Reason: Nausea/Vomiting Oxycodone HCl (Oxycodone Immediate Release Tab) 5 mg PO Q6H PRN PRN Reason: Pain, severe (8-10) Last Admin: 04/07/17 16:41 Dose: 5 mg Thiamine HCl (Vitamin B1 Tab) 100 mg PO DAILY [facility] Last Admin: 04/07/17 10:05 Dose: 100 mg Verapamil HCl (Calan Tab) 80 mg PO TID [facility] Last Admin: 04/07/17 13:41 Dose: 80 mg Ziprasidone (Geodon Inj) 10 mg IM Q12 PRN; Protocol PRN Reason: severe agitation Physical Exam - Constitutional Appears: Well, Non-toxic, No Acute Distress - Head Exam Head Exam: NORMAL INSPECTION - Eye Exam Eye Exam: EOMI, PERRL, Scleral icterus - ENT Exam ENT Exam: Mucous Membranes Moist - Neck Exam Neck exam: Positive for: Normal Inspection - Respiratory Exam Respiratory Exam: Clear to Auscultation Bilateral, NORMAL BREATHING PATTERN. absent: Rales, Rhonchi, Wheezes - Cardiovascular Exam Cardiovascular Exam: RRR, +S1, +S2 - GI/Abdominal Exam GI & Abdominal Exam: Normal Bowel Sounds, Soft. absent: Distended, Tenderness - Extremities Exam Extremities exam: Positive for: normal inspection - Back Exam Back exam: NORMAL INSPECTION - Neurological Exam Neurological exam: Alert, CN II-XII Intact, Normal Gait, Oriented x3 - Psychiatric Exam Psychiatric exam: Normal Affect, Normal Mood - Skin Skin Exam: Warm Additional comments: jaundice Results - Vital Signs Recent Vital Signs: Last Vital Signs Temp 98.0 F 04/06/17 23:00 Pulse 78 04/07/17 13:41 Resp 18 04/07/17 02:26 BP 104/74 04/07/17 13:41 Pulse Ox 96 04/06/17 23:00 - Labs Labs: Laboratory Results - last 24 hr 04/07/17 04/07/17 04/07/17 07:30 07:30 07:30 Fasting Glucose 94 Triglycerides 174 H Cholesterol 106 L LDL Cholesterol Direct 65 HDL Cholesterol 9 L TSH 3rd Generation 5.56 H RPR Nonreactive Assessment & Plan - Assessment and Plan (Free Text) Assessment: 51 year old male with a past medical history of dilated cardiomyopathy s/p single chamber ventricular pacemaker placement, chronic atrial fibrillation, alcohol abuse w/ severe withdrawals, alcoholic hepatitis thrombocytopenia, peptic ulcer disease and depression who presented to [facility] psych unit from med- surg unit for continued surveillance and treatment. Medicine team was consulted for medical clearance. Plan: 1. Alcohol abuse and treatment - continue psych treatment - patient no longer going through withdrawals 2. Atrial fibrillation with rapid ventricular response - Continue atenolol, digoxin, verapmil 3. Alcoholic Bone Marrow Suppression - Pancytopenic - Cont to monitor 4. Dilated Cardiomyopathy - Continue with cardiac medication regimen as listed above 5. Hypertension - BP well controlled, continue to monitor 6. Depression - Psychiatry consulted - Cont Seroquel 7. Peptic ulcer disease - Pepcid 20 mg PO daily 8. Hypothyroidism - cont synthroid 9. PPX - pepcid - patient is ambulating so no need for dvt ppx Patient is medically cleared. Will sign off. Please reconsult if needed. Patient was seen, examined and discussed with attending, Dr. Tara Patel PGY1 <Sincere Pacheco - Last Filed: 04/08/17 17:12> Meds - Medications Medications: Current Medications Acetaminophen (Tylenol 325mg Tab) 650 mg PO Q4 PRN PRN Reason: Pain, Mild (1-3) Al Hydrox/Mg Hydrox/Simethicone (Maalox Plus 30 Ml) 30 ml PO DAILY PRN PRN Reason: Upset Stomach Atenolol (Tenormin) 25 mg PO DAILY [facility] Last Admin: 04/08/17 09:20 Dose: 25 mg Digoxin (Lanoxin) 0.25 mg PO 1800 [facility] Last Admin: 04/07/17 18:12 Dose: 0.25 mg Diphenhydramine HCl (Benadryl) 25 mg PO Q6 PRN PRN Reason: Itching / Pruritus Last Admin: 04/08/17 13:52 Dose: 25 mg Famotidine (Pepcid) 20 mg PO DAILY [facility] Last Admin: 04/08/17 09:21 Dose: 20 mg Folic Acid (Folic Acid) 1 mg PO DAILY [facility] Last Admin: 04/08/17 09:21 Dose: 1 mg Hydrocortisone (Cortizone 1% Cream) 1 gm TOP BID PRN PRN Reason: Itching / Pruritus Levothyroxine Sodium (Synthroid) 25 mcg PO 0600 [facility] Last Admin: 04/08/17 06:35 Dose: 25 mcg Lorazepam (Ativan) 2 mg PO Q6 PRN; Protocol PRN Reason: alcohol withdrawal Last Admin: 04/08/17 13:36 Dose: 2 mg Magnesium Hydroxide (Milk Of Magnesia) 30 ml PO DAILY PRN PRN Reason: Constipation Magnesium Oxide (Mag-Ox) 400 mg PO BID [facility] Last Admin: 04/08/17 09:21 Dose: 400 mg Multi-Ingredient Cream (Hydrocerin Cream) 1 ea TOP TID [facility] Multivitamins/Minerals (Therapeutic-M Tab) 1 tab PO 0800 [facility] Last Admin: 04/08/17 09:21 Dose: 1 tab Ondansetron HCl (Zofran Tab) 4 mg PO Q8H PRN PRN Reason: Nausea/Vomiting Oxycodone HCl (Oxycodone Immediate Release Tab) 5 mg PO Q6H PRN PRN Reason: Pain, severe (8-10) Last Admin: 04/08/17 09:23 Dose: 5 mg Thiamine HCl (Vitamin B1 Tab) 100 mg PO DAILY [facility] Last Admin: 04/08/17 09:21 Dose: 100 mg Verapamil HCl (Calan Tab) 80 mg PO TID [facility] Last Admin: 04/08/17 12:47 Dose: 80 mg Ziprasidone (Geodon Inj) 10 mg IM Q12 PRN; Protocol PRN Reason: severe agitation Results - Vital Signs Recent Vital Signs: Last Vital Signs Temp 98.2 F 04/08/17 07:15 Pulse 80 04/08/17 12:47 Resp 20 04/08/17 07:15 BP 110/69 04/08/17 12:47 Pulse Ox 96 04/06/17 23:00 - Labs Result Diagrams: 04/08/17 14:25 Labs: Laboratory Results - last 24 hr 04/07/17 04/08/17 07:30 14:25 Sodium 129 L Potassium 4.2 Chloride 98 Carbon Dioxide 22 Anion Gap 14 BUN 14 Creatinine 0.6 L Est GFR ( Amer) > 60 Est GFR (Non-Af Amer) > 60 Random Glucose 88 Calcium 8.9 Total Bilirubin 20.2 H* AST 213 H ALT 100 H Alkaline Phosphatase 165 H Total Protein 7.7 Albumin 3.2 Globulin 4.4 Albumin/Globulin Ratio 0.7 L RPR Nonreactive Attending/Attestation - Attestation I have personally seen and examined this patient.: Yes I have fully participated in the care of the patient.: Yes I have reviewed all pertinent clinical information: Yes Notes (Text): I have seen and examined the patient at bedside. Agree with the above note with the following additions/ exceptions: Briefly this is 51 year old male with history of dilated cardiomyopathy s/p single chamber ventricular pacemaker placement, chronic atrial fibrillation, alcohol abuse w/ severe withdrawals, alcoholic hepatitis, thrombocytopenia, peptic ulcer disease and depression who was admitted to psych unit for management of depression. Patient denies any complaints other than mild itching. Labs reviewed. Counselling provided regarding alcohol abuse. Bilrubin is rising. Will order Prothombin time and calculate DF. If >32, will start prednisone. Will discuss with GI as well. Reiterated the need to be more compliant with medications. Upon discharge patient will follow up with Dr Mason Srivastava. Dr Sincere Pacheco
[2017-04-07] MEDS: Digoxin 250 mcg (0.25 mg) Tab PO SCH (18:12)
[2017-04-08] MEDS: Levothyroxine 25 MCG TAB PO SCH (06:35)
--- NOTE | 2017-04-08 09:02 | PCM.PYCHPN ---
Psychiatric Progress Note - Psychiatric Progress Note Patient seen today, length of contact: 25 min Patient Chief Complaint: "okay" Problems Identified/Issues Discussed: I reviewed assessment and recent notes. Patient was interviewed at bedside. He appears unkempt and tired. His eye contact and focus are fair. Patient is well- oriented to month, year and location. Indicates he feels "okay". Still has " some hallucinations" but appears a lot more oriented and logical than last weekend when I saw him on the medical floor. Affect is constricted. Patient is tolerating his medications and denies any new discomfort or pain. Reports chronic discomfort from sciatica. Staff notes indicate that patient has been calm and visible. Attended group. Reported seeing shadows and requested prn Ativan. There were no behavioral issues overnight. Diagnostic Results: Major Depression, Recurrent, Severe, without psychotic features Alcohol Use Disorder, Severe, Chronic Mental Status Examination - Cognitive Function Orientation: Person, Place, Situation, Time Attention: WNL Concentration: Poor Association: Loose - Mood Mood: Depressed ("okay") - Affect Affect: Constricted, Blunted - Speech Speech: Appropriate - Formal Thought Process Formal Thought Process: Hallucinations ("shadows", patient doesn't appear to be responding to internal stimuli), Circumstantial Goal/Treatment Plan - Goal/Treatment Plan Progress Toward Problem(s) and Goals/Treatment Plan: * c/w current tx and plan * No new weekend labs thus far * Vitals reviewed and noted below: Selected Entries 04/06/17 04/07/17 04/07/17 23:00 02:26 13:41 Temperature 98.0 F Pulse Rate 76 78 Pulse Rate [ 76 Bilateral Radial] Respiratory 18 Rate Blood Pressure 106/62 104/74 04/07/17 18:13 Temperature Pulse Rate 93 H Pulse Rate [ Bilateral Radial] Respiratory Rate Blood Pressure 112/73
[2017-04-08] MEDS: Magnesium Oxide 400 mg Tab UD PO SCH ×2 (09:21→16:00)
[2017-04-08] MEDS: Multivitamin With Minerals Tab PO SCH (09:21)
[2017-04-08] MEDS: oxyCODONE 5 mg Immediate Release Tab PO PRN (09:23)
[2017-04-08] MEDS ORDERED: Hydrocortisone 1% Cream (30 GM) TOP PRN (13:31)
[2017-04-08 14:58] LABS: ALT/SGPT 100 U/L (7-56); AST/SGOT 213 U/L (17-59); BLOOD UREA NITROGEN 14 mg/dL (7-21); CALCIUM 8.9 mg/dL (8.4-10.5); GFR AFRICAN-AMERICAN > 60; GFR NON-AFRICAN AMERICAN > 60
[2017-04-08 15:11] LABS: ALB/GLOB RATIO 0.7 (1.1-1.8); ALBUMIN 3.2 g/dL (3.0-4.8)
[2017-04-08] MEDS: Hydrocerin(120 gm) TOP SCH (17:02)
[2017-04-08] MEDS: Digoxin 250 mcg (0.25 mg) Tab PO SCH (17:03)
[2017-04-08 20:46] LABS: HDL CHOLESTEROL 9 mg/dL (29-60); LDL CHOLESTEROL 71 mg/dL (0-129)
[2017-04-08] MEDS: Hemorrohoidal Ointment (2 oz) TOP PRN (21:49)
[2017-04-09] MEDS: oxyCODONE 5 mg Immediate Release Tab PO PRN ×3 (07:48→21:19)
[2017-04-09] MEDS: Levothyroxine 25 MCG TAB PO SCH (07:48)
--- NOTE | 2017-04-09 08:55 | PCM.PYCHPN ---
Psychiatric Progress Note - Psychiatric Progress Note Patient seen today, length of contact: 25 min Patient Chief Complaint: "okay" Problems Identified/Issues Discussed: I reviewed recent notes and patient was interviewed at bedside. He appears unkempt but more alert today. His eye contact and focus are fair. Patient is well-oriented to month, year and location. Indicates he feels "okay" and reports he slept much better last night. Denies any hallucinations today. He continues to appear more oriented and logical than last weekend. Affect is constricted. Patient is tolerating his medications and denies any new discomfort or pain. Continues to reports discomfort from sciatica. Staff notes indicate that patient has been calm and visible. Attended group. Reported that he was still having some withdrawal symptoms. Requested Seroquel at night for sleep and took it with good effect (as noted above). There were no behavioral issues over the weekend. Diagnostic Results: Major Depression, Recurrent, Severe, without psychotic features Alcohol Use Disorder, Severe, Chronic Medication Change: Yes (restarted seroquel 25 mg HS prn) Medical Record Reviewed: Yes Mental Status Examination - Cognitive Function Orientation: Person, Place, Situation, Time Attention: WNL Concentration: Poor Association: Loose - Mood Mood: Depressed ("okay") - Affect Affect: Constricted, Blunted - Speech Speech: Appropriate - Formal Thought Process Formal Thought Process: Hallucinations ("shadows", patient doesn't appear to be responding to internal stimuli), Circumstantial Goal/Treatment Plan - Goal/Treatment Plan Progress Toward Problem(s) and Goals/Treatment Plan: * c/w current tx and plan * Restarted Seroquel 25 mg HS prn: insomnia. Patient was counseled that this was an off-label use of this medication. Reviewed common indications, dosing and possible side effects with patient and patient agreed to c/w this medication for insomnia * Vitals reviewed and noted below: 04/08/17 04/08/17 04/08/17 07:15 09:20 12:47 Temperature 98.2 F Pulse Rate 74 74 80 Respiratory 20 Rate Blood Pressure 101/65 101/65 110/69 04/08/17 17:06 Temperature Pulse Rate 69 Respiratory Rate Blood Pressure 104/70 * Weekend labs noted below: Laboratory Results - last 24 hr 04/08/17 04/08/17 14:25 19:00 Sodium 129 L Potassium 4.2 Chloride 98 Carbon Dioxide 22 Anion Gap 14 BUN 14 Creatinine 0.6 L Est GFR ( Amer) > 60 Est GFR (Non-Af Amer) > 60 Random Glucose 88 Calcium 8.9 Total Bilirubin 20.2 H* AST 213 H ALT 100 H Alkaline Phosphatase 165 H Total Protein 7.7 Albumin 3.2 Globulin 4.4 Albumin/Globulin Ratio 0.7 L Triglycerides 187 H Cholesterol 115 L LDL Cholesterol Direct 71 HDL Cholesterol 9 L
[2017-04-09] MEDS: Magnesium Oxide 400 mg Tab UD PO SCH ×2 (09:12→15:17)
[2017-04-09] MEDS: Multivitamin With Minerals Tab PO SCH (09:12)
[2017-04-09] MEDS: Hydrocerin(120 gm) TOP SCH ×3 (09:13→17:21)
[2017-04-09 09:58] LABS: BASO # 0.01 K/mm3 (0.0-2.0); BASO % 0.2 % (0.0-3.0); EOS % 0.4 % (1.5-5.0); GRAN # 3.72 (1.4-6.5); GRAN % 75.3 % (50.0-68.0); HEMOGLOBIN 10.6 g/dL (14.0-18.0); LYMPH # 0.5 (1.2-3.4); LYMPH % 10.3 % (22.0-35.0); MEAN CELL VOLUME 105.6 fl (80.0-105.0); MEAN CORPUSCULAR HGB CONC 33.1 g/dl (31.0-37.0); MEAN PLATELET VOLUME 11.3 fl (7.0-11.0); MONO # 0.7 (0.1-0.6); MONO % 13.8 % (1.0-6.0); RBC 3.03 10^6/uL (3.5-6.1); RED CELL DISTRIBUTION WIDTH 15.3 % (11.5-14.5); WHITE BLOOD COUNT 4.9 10^3/ul (4.5-11.0)
[2017-04-09 10:20] LABS: INR 1.51 (0.93-1.08); PROTHROMBIN TIME 17.5 SECONDS (9.4-12.5)
[2017-04-09 10:35] LABS: ALB/GLOB RATIO 0.7 (1.1-1.8); ALBUMIN 3.1 g/dL (3.0-4.8); ALT/SGPT 97 U/L (7-56); AST/SGOT 206 U/L (17-59); BLOOD UREA NITROGEN 10 mg/dL (7-21); CALCIUM 9.2 mg/dL (8.4-10.5); GFR AFRICAN-AMERICAN > 60; GFR NON-AFRICAN AMERICAN > 60
[2017-04-09] MEDS: Digoxin 250 mcg (0.25 mg) Tab PO SCH (17:22)
--- NOTE | 2017-04-09 19:09 | CP.PCM.PN ---
Subjective - Date & Time of Evaluation Date of Evaluation: 04/09/17 Time of Evaluation: 07:30 - Subjective Subjective: Luis Navarro DO PGY1 - Internal Medicine Progress Note Patient seen and examined, ambulating in the psych andres. Yesterday, patient was noted to be severely jaundiced. CMP was ordered and showed marked hyperbilirubinemia. Repeat labs ordered for this AM. Discussed with patient about possible treatments for alcoholic hepatitis, including benefits and possible adverse effects, as well as need for compliance. Patient reports that he had a similar issue in the past which resolved spontaneously, and would not like to start treatment with steroids at this time. Patient repeatedly endorses desire to abstain from alcohol saying "this is the time" "this is my last chance." Patient desires to leave the hospital to attend to outside responsibilities. Today, he denies suicidal or homicidal ideation, chest pain, shortness of breath, abdominal pain, nausea, vomiting, diarrhea, constipation, confusion, tremor, diaphoresis. Objective - Vital Signs/Intake and Output Vital Signs (last 24 hours): Temp Pulse Resp BP Pulse Ox 98.2 F 69 20 104/70 96 04/08/17 07:15 04/08/17 17:06 04/08/17 07:15 04/08/17 17:06 04/06/17 23:00 - Medications Medications: Current Medications Acetaminophen (Tylenol 325mg Tab) 650 mg PO Q4 PRN PRN Reason: Pain, Mild (1-3) Acetaminophen (Tylenol 325mg Tab) 650 mg PO Q6 PRN PRN Reason: Pain, moderate (4-7) Al Hydrox/Mg Hydrox/Simethicone (Maalox Plus 30 Ml) 30 ml PO DAILY PRN PRN Reason: Upset Stomach Atenolol (Tenormin) 25 mg PO DAILY [facility] Last Admin: 04/09/17 09:12 Dose: 25 mg Digoxin (Lanoxin) 0.25 mg PO 1800 [facility] Last Admin: 04/09/17 17:22 Dose: 0.25 mg Diphenhydramine HCl (Benadryl) 25 mg PO Q6 PRN PRN Reason: Itching / Pruritus Last Admin: 04/08/17 13:52 Dose: 25 mg Famotidine (Pepcid) 20 mg PO DAILY [facility] Last Admin: 04/09/17 09:12 Dose: 20 mg Folic Acid (Folic Acid) 1 mg PO DAILY [facility] Last Admin: 04/09/17 09:12 Dose: 1 mg Hydrocortisone (Cortizone 1% Cream) 1 gm TOP BID PRN PRN Reason: Itching / Pruritus Last Admin: 04/08/17 17:03 Dose: 1 cer Levothyroxine Sodium (Synthroid) 25 mcg PO 0600 [facility] Last Admin: 04/09/17 07:48 Dose: 25 mcg Lorazepam (Ativan) 2 mg PO Q6 PRN; Protocol PRN Reason: alcohol withdrawal Last Admin: 04/08/17 13:36 Dose: 2 mg Magnesium Hydroxide (Milk Of Magnesia) 30 ml PO DAILY PRN PRN Reason: Constipation Magnesium Oxide (Mag-Ox) 400 mg PO BID [facility] Last Admin: 04/09/17 15:17 Dose: 400 mg Multi-Ingredient Cream (Hydrocerin Cream) 1 ea TOP TID [facility] Last Admin: 04/09/17 17:21 Dose: 1 cre Multi-Ingredient Ointment (Prep-Hem) 2 ea TOP Q6H PRN PRN Reason: Itching / Pruritus Last Admin: 04/08/17 21:49 Dose: 2 oz Multivitamins/Minerals (Therapeutic-M Tab) 1 tab PO 0800 [facility] Last Admin: 04/09/17 09:12 Dose: 1 tab Ondansetron HCl (Zofran Tab) 4 mg PO Q8H PRN PRN Reason: Nausea/Vomiting Oxycodone HCl (Oxycodone Immediate Release Tab) 5 mg PO Q6H PRN PRN Reason: Pain, severe (8-10) Last Admin: 04/09/17 15:17 Dose: 5 mg Quetiapine Fumarate (Seroquel) 25 mg PO HS PRN; Protocol PRN Reason: Insomnia Thiamine HCl (Vitamin B1 Tab) 100 mg PO DAILY [facility] Last Admin: 04/09/17 09:12 Dose: 100 mg Verapamil HCl (Calan Tab) 80 mg PO TID [facility] Last Admin: 04/09/17 17:22 Dose: 80 mg Ziprasidone (Geodon Inj) 10 mg IM Q12 PRN; Protocol PRN Reason: severe agitation - Labs Labs: 04/09/17 09:50 04/09/17 09:50 PT 17.5 SECONDS (9.4-12.5) H 04/09/17 09:50 INR 1.51 (0.93-1.08) H 04/09/17 09:50 - Constitutional Appears: Non-toxic, No Acute Distress - Head Exam Head Exam: ATRAUMATIC, NORMOCEPHALIC - Eye Exam Eye Exam: EOMI, PERRL, Scleral icterus - ENT Exam ENT Exam: Mucous Membranes Moist - Neck Exam Neck Exam: Normal Inspection - Respiratory Exam Respiratory Exam: Clear to Ausculation Bilateral, NORMAL BREATHING PATTERN - Cardiovascular Exam Cardiovascular Exam: Irregular Rhythm, +S1, +S2. absent: Tachycardia - GI/Abdominal Exam GI & Abdominal Exam: Soft, Organomegaly (hepatomegaly). absent: Tenderness - Extremities Exam Extremities Exam: absent: Calf Tenderness, Pedal Edema - Neurological Exam Neurological Exam: Alert, Awake, Oriented x3 Neuro motor strength exam: Left Upper Extremity: 5, Right Upper Extremity: 5, Left Lower Extremity: 5, Right Lower Extremity: 5 Additional comments: No asterixis. No tremor. No confusion. AAOx4 - Psychiatric Exam Psychiatric exam: Normal Affect, Normal Mood - Skin Skin Exam: Dry, Intact Additional comments: Grossly jaundiced, extending to palms and legs. Soles not examined Assessment and Plan - Assessment and Plan (Free Text) Assessment: 51 year old male with a past medical history of dilated cardiomyopathy s/p single chamber ventricular pacemaker placement, chronic atrial fibrillation, alcohol abuse w/ severe withdrawals, alcoholic hepatitis thrombocytopenia, peptic ulcer disease and depression who presented to [facility] psych unit from med- surg unit for continued surveillance and treatment. Medicine team following up on jaundice Plan: 1. Alcohol abuse and treatment - continue psych treatment - patient no longer going through withdrawals 2. Jaundice - Patient likely has alcoholic hepatitis - Bilirubin persistently elevated, trending up since admission; no abdominal pain - Maddrey's DF 45, indicating treatment with steroids - Patient does not desire treatment at this time; discussed benefits, and risks including adverse effects; patient verbalized understanding 3. 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 Dilated Cardiomyopathy - Continue with cardiac medication regimen as listed above 6. Hypertension - BP well controlled, continue to monitor 7. Depression - Management per psych - Cont Seroquel 8. Peptic ulcer disease - Pepcid 20 mg PO daily 9. Hypothyroidism - cont synthroid 10. PPX - pepcid - patient is ambulating so no need for dvt ppx Patient was seen, examined and discussed with attending, Dr. Pacheco
--- NOTE | 2017-04-09 20:50 | CON ---
DATE: 04/09/2017 HISTORY OF PRESENT ILLNESS: I saw Mr. Ybarra this morning. He is a 51-year-old white male, known to risk consultant, previously seen on the medical andres for elevated LFTs. The patient was admitted initially for atrial fibrillation with rapid ventricular rate, which was converted. Workup and evaluation then proceeded for his problem consisting of elevated LFTs. Of note, the patient has a very significant alcohol intake. His laboratory data throughout the course of his admission revealed an elevated AST, ALT ratio initially read as 194/84 to subsequently about 213/100. Also, he does have elevated triglycerides as well. His bilirubin has risen gradually since the day of admission from initially 7.3 value up to about 20. In the Psych floor this morning, the patient has denied any abdominal pain, does indicate the urine has a slightly orange tint. It is not brown. The patient denies pain, nausea, vomiting, rectal bleeding, hematemesis. His only request is no more testing and wanted to "leave the premises." Review of this patient's laboratory data today, with H and H . Chemistry indicates a total bilirubin of 20.2 with an AST/ALT ratio of 213/100, alk phos 165. His first set of coags revealed a PT of 13.9 with an INR of 1.20. ASSESSMENT: This is a 51-year-old white male with history of significant alcohol abuse, admitted to medical andres with atrial fibrillation, rapid ventricular rate, subsequently found to have elevated liver function tests, probably related to alcoholic hepatitis. I discussed the possibility of further testing on the psych floor; however, he wished to defer this until further notice. I discussed the urgency of blood work as well as possible ultrasound study, but his response was that he will be admitted to [facility] after discharge from [facility]. Again, he will be following up at [facility] after discharge here. His brother will apparently be taking him over within the next couple of days after discharge. Based on prior laboratory data, DF, the patient is not a candidate for steroids, unless new labs dictate otherwise. I would prefer getting several lab data, but again, as indicated above, the patient deferred any further testing in the hospital. Naseem Rossi DO, PhD JYOTI
[2017-04-10] MEDS: Levothyroxine 25 MCG TAB PO SCH (07:05)
[2017-04-10] MEDS: Magnesium Oxide 400 mg Tab UD PO SCH ×2 (08:21→17:45)
[2017-04-10] MEDS: Hydrocerin(120 gm) TOP SCH ×3 (08:21→18:23)
[2017-04-10] MEDS: Multivitamin With Minerals Tab PO SCH (08:21)
[2017-04-10] MEDS: oxyCODONE 5 mg Immediate Release Tab PO PRN ×2 (08:23→17:47)
[2017-04-10 09:43] LABS: ALT/SGPT 101 U/L (7-56); AST/SGOT 204 U/L (17-59); BLOOD UREA NITROGEN 11 mg/dL (7-21); CALCIUM 9.1 mg/dL (8.4-10.5); GFR AFRICAN-AMERICAN > 60; GFR NON-AFRICAN AMERICAN > 60; HEMOGLOBIN 10.3 g/dL (14.0-18.0); MEAN CELL VOLUME 105.7 fl (80.0-105.0); MEAN CORPUSCULAR HEMOGLOBIN 34.4 pg (25.0-35.0); MEAN CORPUSCULAR HGB CONC 32.6 g/dl (31.0-37.0); MEAN PLATELET VOLUME 11.3 fl (7.0-11.0); RBC 2.99 10^6/uL (3.5-6.1); RED CELL DISTRIBUTION WIDTH 15.1 % (11.5-14.5); WHITE BLOOD COUNT 5.1 10^3/ul (4.5-11.0)
[2017-04-10 09:50] LABS: INR 1.55 (0.93-1.08)
[2017-04-10 09:52] LABS: ALB/GLOB RATIO 0.7 (1.1-1.8); ALBUMIN 3.1 g/dL (3.0-4.8)
--- NOTE | 2017-04-10 11:38 | PCM.PYCHPN ---
Psychiatric Progress Note - Psychiatric Progress Note Patient seen today, length of contact: 25 min Patient Chief Complaint: "I think I have a plan " Problems Identified/Issues Discussed: Patient is a 51 year old white male who was first admitted to the hospital on March 29 2017, presenting in the ER with back pain related to a fall in the shower. He was found to be in atrial fibrillation with rapid ventricular response. He was admitted to the telemetry unit and subsequently went into alcohol withdrawal. He was followed by psychiatry due to concerns regarding his severe alcoholism and living alone, indicated that he was depressed and expressed suicidal ideation. He consented to be voluntarily admitted to the inpatient psychiatric unit with the plan being that he will be referred for longer term alcohol treatment on discharge. Patient is less jaundiced today, still appears somewhat dishevelled. Patient is walking around unit quite a bit to relieve his sciatica, wide legged gait noted. There is an improvement in patient affect, his range is now full, and his thoughts are now more complex and coherent. His memory both short and long have some deficits. He has given permission for the to talk to his cousin Val and is thinking of going to rehab as a plan after discharge. He is attending groups and is appropriate in his interactions. Medical Problems: 51 year old male with a past medical history of dilated cardiomyopathy s/p single chamber ventricular pacemaker placement, chronic atrial fibrillation, alcohol abuse w/ severe withdrawals, alcoholic hepatitis thrombocytopenia, peptic ulcer disease and depression Diagnostic Results: Laboratory Results - last 24 hr 04/08/17 04/10/17 04/10/17 19:00 09:00 09:00 WBC 5.1 RBC 2.99 L Hgb 10.3 L Hct 31.6 L MCV 105.7 H MCH 34.4 MCHC 32.6 RDW 15.1 H Plt Count 186 MPV 11.3 H PT 18.0 H INR 1.55 H Sodium Potassium Chloride Carbon Dioxide Anion Gap BUN Creatinine Est GFR ( Amer) Est GFR (Non-Af Amer) Random Glucose Hemoglobin A1c 3.7 L Calcium Total Bilirubin AST ALT Alkaline Phosphatase Total Protein Albumin Globulin Albumin/Globulin Ratio 04/10/17 09:00 WBC RBC Hgb Hct MCV MCH MCHC RDW Plt Count MPV PT INR Sodium 133 Potassium 4.1 Chloride 102 Carbon Dioxide 24 Anion Gap 12 BUN 11 Creatinine 0.6 L Est GFR ( Amer) > 60 Est GFR (Non-Af Amer) > 60 Random Glucose 118 H Hemoglobin A1c Calcium 9.1 Total Bilirubin 20.6 H* AST 204 H ALT 101 H Alkaline Phosphatase 162 H Total Protein 7.6 Albumin 3.1 Globulin 4.5 Albumin/Globulin Ratio 0.7 L Temp Pulse Resp BP Pulse Ox 98.5 F 65 18 89/57 L 100 04/10/17 07:09 04/10/17 07:09 04/10/17 07:09 04/10/17 07:09 04/10/17 07:09 Medication Change: No Medical Record Reviewed: Yes Consults ordered or reviewed: Consult per Dr Ndiaye, thank you F/U per Dr Thomson noted Mental Status Examination - Cognitive Function Orientation: Person, Place, Situation, Time Attention: WNL Concentration: Poor Association: Loose - Mood Mood: Depressed ("okay") - Affect Affect: Constricted, Blunted - Speech Speech: Appropriate - Formal Thought Process Formal Thought Process: Hallucinations ("shadows", patient doesn't appear to be responding to internal stimuli), Circumstantial Goal/Treatment Plan - Goal/Treatment Plan Progress Toward Problem(s) and Goals/Treatment Plan: Treatment plan: Milieu/structure/supportive therapy Medical consult appreciated, see medical team note for more detailed info SW consultation for discharge plan and social issues Med management Family involvement Follow up on labs Will monitor closely evaluation for d/c planning Pt was educated about risk/benefits and alternatives of medications, coping strategies (safety plan, suicide prevention), relapse prevention, importance of follow up with psychiatrist and therapist, stay away from drugs/alcohol/smoking
[2017-04-10] MEDS: Hemorrohoidal Ointment (2 oz) TOP PRN (13:11)
--- NOTE | 2017-04-10 16:11 | CP.PCM.PN ---
Subjective - Date & Time of Evaluation Date of Evaluation: 04/10/17 Time of Evaluation: 07:30 - Subjective Subjective: Luis Navarro DO PGY1 - Internal Medicine Progress Note Patient seen and examined in psych andres, ambulating through halls. Patient now reports desire to undergo treatment if necessary. Patient spoke with Dr. Rossi yesterday who informed the patient of the severity of his illness. Patient verbalizes understanding of the consequences of further alcohol consumption, as well as both the benefits and risks of steroid therapy, and the importance of routine follow up while undergoing therapy. Patient otherwise has no complaints, and denies abdominal pain, nausea, vomiting, diarrhea, constipation, confusion, tremor. Objective - Vital Signs/Intake and Output Vital Signs (last 24 hours): Temp Pulse Resp BP Pulse Ox 98.5 F 65 18 89/57 L 100 04/10/17 07:09 04/10/17 07:09 04/10/17 07:09 04/10/17 07:09 04/10/17 07:09 - Medications Medications: Current Medications Acetaminophen (Tylenol 325mg Tab) 650 mg PO Q4 PRN PRN Reason: Pain, Mild (1-3) Acetaminophen (Tylenol 325mg Tab) 650 mg PO Q6 PRN PRN Reason: Pain, moderate (4-7) Al Hydrox/Mg Hydrox/Simethicone (Maalox Plus 30 Ml) 30 ml PO DAILY PRN PRN Reason: Upset Stomach Atenolol (Tenormin) 25 mg PO DAILY [facility] Last Admin: 04/10/17 08:21 Dose: 25 mg Digoxin (Lanoxin) 0.25 mg PO 1800 [facility] Last Admin: 04/09/17 17:22 Dose: 0.25 mg Diphenhydramine HCl (Benadryl) 25 mg PO Q6 PRN PRN Reason: Itching / Pruritus Last Admin: 04/09/17 23:03 Dose: 25 mg Famotidine (Pepcid) 20 mg PO DAILY [facility] Last Admin: 04/10/17 08:21 Dose: 20 mg Folic Acid (Folic Acid) 1 mg PO DAILY [facility] Last Admin: 04/10/17 08:21 Dose: 1 mg Hydrocortisone (Cortizone 1% Cream) 1 gm TOP BID PRN PRN Reason: Itching / Pruritus Last Admin: 04/08/17 17:03 Dose: 1 cer Levothyroxine Sodium (Synthroid) 25 mcg PO 0600 [facility] Last Admin: 04/10/17 07:05 Dose: 25 mcg Lorazepam (Ativan) 2 mg PO Q6 PRN; Protocol PRN Reason: alcohol withdrawal Last Admin: 04/10/17 02:19 Dose: 2 mg Magnesium Hydroxide (Milk Of Magnesia) 30 ml PO DAILY PRN PRN Reason: Constipation Magnesium Oxide (Mag-Ox) 400 mg PO BID [facility] Last Admin: 04/10/17 08:21 Dose: 400 mg Multi-Ingredient Cream (Hydrocerin Cream) 1 ea TOP TID [facility] Last Admin: 04/10/17 13:11 Dose: 1 cre Multi-Ingredient Ointment (Prep-Hem) 2 ea TOP Q6H PRN PRN Reason: Itching / Pruritus Last Admin: 04/10/17 13:11 Dose: 1 applic Multivitamins/Minerals (Therapeutic-M Tab) 1 tab PO 0800 [facility] Last Admin: 04/10/17 08:21 Dose: 1 tab Ondansetron HCl (Zofran Tab) 4 mg PO Q8H PRN PRN Reason: Nausea/Vomiting Oxycodone HCl (Oxycodone Immediate Release Tab) 5 mg PO Q6H PRN PRN Reason: Pain, severe (8-10) Last Admin: 04/10/17 08:23 Dose: 5 mg Quetiapine Fumarate (Seroquel) 25 mg PO HS PRN; Protocol PRN Reason: Insomnia Last Admin: 04/09/17 23:03 Dose: 25 mg Thiamine HCl (Vitamin B1 Tab) 100 mg PO DAILY [facility] Last Admin: 04/10/17 08:21 Dose: 100 mg Verapamil HCl (Calan Tab) 80 mg PO TID [facility] Last Admin: 04/10/17 13:09 Dose: 80 mg Ziprasidone (Geodon Inj) 10 mg IM Q12 PRN; Protocol PRN Reason: severe agitation - Labs Labs: 04/10/17 09:00 04/10/17 09:00 PT 18.0 SECONDS (9.4-12.5) H 04/10/17 09:00 INR 1.55 (0.93-1.08) H 04/10/17 09:00 - Constitutional Appears: Non-toxic, No Acute Distress - Head Exam Head Exam: ATRAUMATIC, NORMOCEPHALIC - Eye Exam Eye Exam: EOMI, PERRL, Scleral icterus - ENT Exam ENT Exam: Mucous Membranes Moist - Neck Exam Neck Exam: Normal Inspection - Respiratory Exam Respiratory Exam: Clear to Ausculation Bilateral, NORMAL BREATHING PATTERN - Cardiovascular Exam Cardiovascular Exam: RRR, +S1, +S2 - GI/Abdominal Exam GI & Abdominal Exam: Soft, Normal Bowel Sounds. absent: Tenderness - Extremities Exam Extremities Exam: absent: Calf Tenderness, Pedal Edema - Neurological Exam Neurological Exam: Alert, Awake, Oriented x3 Additional comments: No asterixis - Psychiatric Exam Psychiatric exam: Normal Affect, Normal Mood - Skin Skin Exam: Dry, Intact Additional comments: Diffuse jaundice, unchanged since yesterday. Assessment and Plan - Assessment and Plan (Free Text) Assessment: 51 year old male with a past medical history of dilated cardiomyopathy s/p single chamber ventricular pacemaker placement, chronic atrial fibrillation, alcohol abuse w/ severe withdrawals, alcoholic hepatitis thrombocytopenia, peptic ulcer disease and depression who presented to [facility] psych unit from med- surg unit for continued surveillance and treatment. Medicine team following up on jaundice Plan: 1. Alcohol abuse and treatment - continue psych treatment - Stressed consequences of further alcohol consumption, patient verbalizes understanding 2. Jaundice - Patient likely has alcoholic hepatitis - Bilirubin persistently elevated, trending up since admission; no abdominal pain - Maddrey's DF 45, indicating treatment with steroids - Patient now agreeable to starting steroid treatment - Will order viral hepatitis panel (to r/o untreated HBV) and liver ultrasound ( to r/o HCC) prior to initiating treatment - Patient will require follow up with PMD or head of commission department upon discharge - GI on consult; appreciate recs 3. 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 Dilated Cardiomyopathy - Continue with cardiac medication regimen as listed above 6. Hypertension - BP well controlled, continue to monitor 7. Depression - Management per psych - Cont Seroquel 8. Peptic ulcer disease - Pepcid 20 mg PO daily 9. Hypothyroidism - cont synthroid 10. PPX - pepcid - patient is ambulating so no need for dvt ppx Patient was seen, examined and discussed with attending, Dr. Pacheco
[2017-04-10] MEDS: Digoxin 250 mcg (0.25 mg) Tab PO SCH (17:45)
[2017-04-11] MEDS: Levothyroxine 25 MCG TAB PO SCH (06:49)
[2017-04-11 08:23] LABS: ALT/SGPT 89 U/L (7-56); AST/SGOT 168 U/L (17-59); BLOOD UREA NITROGEN 12 mg/dL (7-21); CALCIUM 8.5 mg/dL (8.4-10.5); GFR AFRICAN-AMERICAN > 60; GFR NON-AFRICAN AMERICAN > 60
[2017-04-11 08:29] LABS: ALB/GLOB RATIO 0.7 (1.1-1.8); ALBUMIN 2.6 g/dL (3.0-4.8)
[2017-04-11 08:34] LABS: INR 1.65 (0.93-1.08); PROTHROMBIN TIME 19.2 SECONDS (9.4-12.5)
[2017-04-11] MEDS: Hydrocerin(120 gm) TOP SCH ×3 (09:05→18:05)
[2017-04-11] MEDS: oxyCODONE 5 mg Immediate Release Tab PO PRN ×2 (09:07→18:01)
[2017-04-11] MEDS: Multivitamin With Minerals Tab PO SCH (09:08)
[2017-04-11] MEDS: Magnesium Oxide 400 mg Tab UD PO SCH ×2 (09:08→18:02)
--- NOTE | 2017-04-11 10:31 | PN ---
DATE: 04/11/2017 SUBJECTIVE: I reviewed the case of Elvis Ybarra with Dr. Zaira Pacheco yesterday. In my discussion with the patient on Monday he indicated that he wished no further treatment in the form of ultrasound or blood test done while he is here at [facility]. This is contrary to the discussion the patient had with Dr. Pacheco yesterday. The patient indicated on Monday that after discharge, he will be going out to [facility] to be treated for alcohol-related issues. Regarding the patient's laboratory data, evaluation of the transaminase ratio yesterday AST/ALT ratio of 204/101 with an alk phos of 162. These have been relatively stable over the past couple of days. It is that the bilirubin tends to be very high in alcoholic hepatitis, currently bilirubin is in the range of 20, it has been stable over the past couple of days, possibly this might be the highest they go. At the time I saw the patient on Monday, he was not experiencing any abdominal pain, nausea, vomiting, hematemesis, rectal bleeding, just wanted to leave the hospital as soon as possible. Note that most recent PT/INR for this patient done on yesterday revealed a PT of 18 with an INR of 1.55. Apparently, his previous serologies have been negative, so on reviewing the new calculation of discriminant function in discussion with Dr. Pacheco, it was suggested that methylprednisolone should be started at a dose of 40 mg p.o. daily. I do not see this in the formulary at the current time point. I will discuss this with the hospitalist later on this morning. I note that the patient is scheduled for an abdominal ultrasound as well. Naseem Rossi DO, PhD JYOTI
[2017-04-11] MEDS ORDERED: Midazolam 2 MG/2 ML VIAL ONE (11:38)
[2017-04-11] MEDS ORDERED: Propofol 10 mg/ml Inj (20 ML) ONE (11:38)
[2017-04-11] MEDS ORDERED: Succinylcholine 200 mg/10 ml Inj IV ONE (11:40)
[2017-04-11 12:32] LABS: HEPATITIS B CORE AB NEGATIVE (NEGATIVE)
[2017-04-11 12:38] LABS: HEPATITIS A IGM NEGATIVE (NEGATIVE); HEPATITIS B SURFACE AG Negative (NEGATIVE)
[2017-04-11 12:43] LABS: HEPATITIS C ANTIBODY NEGATIVE (NEGATIVE)
[2017-04-11] MEDS ORDERED: Neostigmine Methylsulfate 3mg/3ml Syringe IV ONE (12:57)
--- NOTE | 2017-04-11 13:53 | PCM.PYCHPN ---
Psychiatric Progress Note - Psychiatric Progress Note Patient seen today, length of contact: 25 min Patient Chief Complaint: "I really did it to myself this time" Problems Identified/Issues Discussed: Patient is a 51 year old white male who was first admitted to the hospital on March 29 2017, presenting in the ER with back pain related to a fall in the shower. He was found to be in atrial fibrillation with rapid ventricular response. He was admitted to the telemetry unit and subsequently went into alcohol withdrawal. He was followed by psychiatry due to concerns regarding his severe alcoholism and living alone, indicated that he was depressed and expressed suicidal ideation. He consented to be voluntarily admitted to the inpatient psychiatric unit with the plan being that he will be referred for longer term alcohol treatment on discharge. Patient today appears to be processing the information from his doctor yesterday indicating that he was told that his liver is not "bouncing back" from this last spell of constant alcohol use. He indicates he "knows" he cannot continue to live here in [place] in the apartment he has been in and stay sober. He is planning to attend rehab will be working with on this. He does not feel able to handle decisions on his own, is not sure how involved his family wants to be with him after discharge as he does not feel that he can live alone. He is worried about change but sees no other option. He spends time on the unit in groups and socializing with peers. He is medication compliant and involved in his treatment. Medical Problems: 51 year old male with a past medical history of dilated cardiomyopathy s/p single chamber ventricular pacemaker placement, chronic atrial fibrillation, alcohol abuse w/ severe withdrawals, alcoholic hepatitis thrombocytopenia, peptic ulcer disease and depression Diagnostic Results: Laboratory Results - last 24 hr 04/08/17 04/10/17 04/10/17 19:00 09:00 09:00 WBC 5.1 RBC 2.99 L Hgb 10.3 L Hct 31.6 L MCV 105.7 H MCH 34.4 MCHC 32.6 RDW 15.1 H Plt Count 186 MPV 11.3 H PT 18.0 H INR 1.55 H Sodium Potassium Chloride Carbon Dioxide Anion Gap BUN Creatinine Est GFR ( Amer) Est GFR (Non-Af Amer) Random Glucose Hemoglobin A1c 3.7 L Calcium Total Bilirubin AST ALT Alkaline Phosphatase Total Protein Albumin Globulin Albumin/Globulin Ratio 04/10/17 09:00 WBC RBC Hgb Hct MCV MCH MCHC RDW Plt Count MPV PT INR Sodium 133 Potassium 4.1 Chloride 102 Carbon Dioxide 24 Anion Gap 12 BUN 11 Creatinine 0.6 L Est GFR ( Amer) > 60 Est GFR (Non-Af Amer) > 60 Random Glucose 118 H Hemoglobin A1c Calcium 9.1 Total Bilirubin 20.6 H* AST 204 H ALT 101 H Alkaline Phosphatase 162 H Total Protein 7.6 Albumin 3.1 Globulin 4.5 Albumin/Globulin Ratio 0.7 L Temp Pulse Resp BP Pulse Ox 98.5 F 65 18 89/57 L 100 04/10/17 07:09 04/10/17 07:09 04/10/17 07:09 04/10/17 07:09 04/10/17 07:09 Abnormal Lab Results 04/10/17 04/11/17 04/11/17 09:00 08:00 08:00 PT 19.2 H INR 1.65 H Sodium 132 Potassium 4.1 Chloride 102 Carbon Dioxide 22 Anion Gap 12 BUN 12 Creatinine 0.5 L Est GFR ( Amer) > 60 Est GFR (Non-Af Amer) > 60 Random Glucose 86 Calcium 8.5 Total Bilirubin 17.1 H AST 168 H ALT 89 H Alkaline Phosphatase 144 H Total Protein 6.4 Albumin 2.6 L Globulin 3.9 Albumin/Globulin Ratio 0.7 L Hepatitis A IgM Ab Negative Hep Bs Antigen Negative Hep B Core IgM Ab Negative Hepatitis C Antibody Negative Temp Pulse Resp BP Pulse Ox 99.1 F 80 20 97/67 L 100 04/11/17 07:24 04/11/17 11:56 04/11/17 07:24 04/11/17 11:56 04/10/17 07:09 Medication Change: No Medical Record Reviewed: Yes Consults ordered or reviewed: Consult per Dr Ndiaye, thank you F/U per Dr Thomson noted F/U per Dr Jamil noted Mental Status Examination - Cognitive Function Orientation: Person, Place, Situation, Time Attention: WNL Concentration: Poor Association: Loose - Mood Mood: Depressed ("okay") - Affect Affect: Constricted, Blunted - Speech Speech: Appropriate - Formal Thought Process Formal Thought Process: Hallucinations ("shadows", patient doesn't appear to be responding to internal stimuli), Circumstantial Goal/Treatment Plan - Goal/Treatment Plan Progress Toward Problem(s) and Goals/Treatment Plan: Treatment plan: Milieu/structure/supportive therapy Medical consult appreciated, see medical team note for more detailed info SW consultation for discharge plan and social issues Med management Family involvement Follow up on labs Will monitor closely SW evaluation for d/c planning Pt was educated about risk/benefits and alternatives of medications, coping strategies (safety plan, suicide prevention), relapse prevention, importance of follow up with psychiatrist and therapist, stay away from drugs/alcohol/smoking
[2017-04-11] MEDS: Hemorrohoidal Ointment (2 oz) TOP PRN (14:56)
--- NOTE | 2017-04-11 16:42 | US ---
HISTORY: r/o liver mass COMPARISON: 10/23/2016 TECHNIQUE: Sonographic evaluation of the abdomen. FINDINGS: LIVER: Measures 19.0 cm. Diffusely increased echogenicity of the liver parenchyma. Consistent with fatty infiltration. No mass. No intrahepatic biliary dilatation. Smooth contour. GALLBLADDER: No evidence of cholelithiasis. There is a mass identified within the gallbladder lumen which may represent tumefactive sludge. There is no flow demonstrated within this mass on color Doppler interrogation. There is no evidence cholelithiasis. The gallbladder wall is diffusely mildly thickened up to 4 mm. There is no reported sonographic Garcia sign. COMMON BILE DUCT: Measures 4 mm. No stones. No dilatation. PANCREAS: Could not be visualized due to bowel gas RIGHT KIDNEY: Measures 11.0cm. Normal echogenicity. No calculus, mass, or hydronephrosis. LEFT KIDNEY: Measures 12.2cm. Normal echogenicity. No calculus or hydronephrosis. Upper pole cortical cyst, 1.3 x 1.7 x 1.9 cm. SPLEEN: Splenomegaly. The spleen measures 15.1 cm in greatest dimension. AORTA: No aneurysmal dilatation. IVC: Unremarkable. OTHER FINDINGS: There is a small amount of ascites noted. IMPRESSION: Hepatomegaly with fatty infiltration. No evidence of biliary obstruction. No evidence of cholelithiasis. Possible tumefactive sludge versus neoplasm within gallbladder. Thickened gallbladder wall. Concern for gallbladder neoplasm may be further pursued with gadolinium enhanced magnetic resonance imaging. Splenomegaly. 1.9 cm left upper pole renal cortical cyst.
--- NOTE | 2017-04-11 16:56 | CP.PCM.PN ---
Subjective - Date & Time of Evaluation Date of Evaluation: 04/11/17 Time of Evaluation: 07:30 - Subjective Subjective: Luis Navarro PGY1 - IM Progress Note Patient seen and examined in the psych unit, ambulating through the halls. Patient was reexamined twice throughout the day. Initially, patient was complaining only of a new rash on his arms which appeared yesterday. He reports itching, which started prior to the rash, associated with the jaundice. He denies pain, bleeding, or discharge. He tried a cortisone cream which did not help. Later in the day, he was complaining of dizziness and palpitations, and was noted to be relatively hypotensive, though still stable. Still later, the patient started complaining of swelling in his legs. He denied any chest pain, shortness of breath, confusion, focal numbness or weakness, nausea, vomiting, diarrhea, constipation, abdominal pain, fever, chills. Steroid treatment was again discussed, and patient again endorsed his desire and willingness to remain abstinence from alcohol and pursue treatment and follow up for his liver disease. He was advised to arrange for follow up with a PCP, and was offered to come to the clinic at [facility] [place]. He was also advised to follow up with a chain tender or postal transportation clerk, and was recommended to visit [facility] hepatology clinic. Objective - Vital Signs/Intake and Output Vital Signs (last 24 hours): Temp Pulse Resp BP Pulse Ox 99.1 F 80 20 97/67 L 100 04/11/17 07:24 04/11/17 11:56 04/11/17 07:24 04/11/17 13:40 04/10/17 07:09 - Medications Medications: Current Medications Acetaminophen (Tylenol 325mg Tab) 650 mg PO Q4 PRN PRN Reason: Pain, Mild (1-3) Last Admin: 04/11/17 12:02 Dose: 650 mg Acetaminophen (Tylenol 325mg Tab) 650 mg PO Q6 PRN PRN Reason: Pain, moderate (4-7) Al Hydrox/Mg Hydrox/Simethicone (Maalox Plus 30 Ml) 30 ml PO DAILY PRN PRN Reason: Upset Stomach Atenolol (Tenormin) 25 mg PO DAILY [facility] Last Admin: 04/11/17 09:08 Dose: 25 mg Digoxin (Lanoxin) 0.25 mg PO 1800 [facility] Last Admin: 04/10/17 17:45 Dose: 0.25 mg Diphenhydramine HCl (Benadryl) 25 mg PO Q6 PRN PRN Reason: Itching / Pruritus Last Admin: 04/09/17 23:03 Dose: 25 mg Famotidine (Pepcid) 20 mg PO DAILY [facility] Last Admin: 04/11/17 09:08 Dose: 20 mg Folic Acid (Folic Acid) 1 mg PO DAILY [facility] Last Admin: 04/11/17 09:08 Dose: 1 mg Hydrocortisone (Cortizone 1% Cream) 1 gm TOP BID PRN PRN Reason: Itching / Pruritus Last Admin: 04/08/17 17:03 Dose: 1 cer Levothyroxine Sodium (Synthroid) 25 mcg PO 0600 [facility] Last Admin: 04/11/17 06:49 Dose: 25 mcg Lorazepam (Ativan) 2 mg PO Q6 PRN; Protocol PRN Reason: alcohol withdrawal Last Admin: 04/10/17 02:19 Dose: 2 mg Magnesium Hydroxide (Milk Of Magnesia) 30 ml PO DAILY PRN PRN Reason: Constipation Magnesium Oxide (Mag-Ox) 400 mg PO BID [facility] Last Admin: 04/11/17 09:08 Dose: 400 mg Midodrine (Proamatine) 10 mg PO TID [facility] Multi-Ingredient Cream (Hydrocerin Cream) 1 ea TOP TID [facility] Last Admin: 04/11/17 13:39 Dose: 1 cre Multi-Ingredient Ointment (Prep-Hem) 2 ea TOP Q6H PRN PRN Reason: Itching / Pruritus Last Admin: 04/11/17 14:56 Dose: 1 applic Multivitamins/Minerals (Therapeutic-M Tab) 1 tab PO 0800 [facility] Last Admin: 04/11/17 09:08 Dose: 1 tab Ondansetron HCl (Zofran Tab) 4 mg PO Q8H PRN PRN Reason: Nausea/Vomiting Oxycodone HCl (Oxycodone Immediate Release Tab) 5 mg PO Q6H PRN PRN Reason: Pain, severe (8-10) Last Admin: 04/11/17 09:07 Dose: 5 mg Prednisolone (Prednisolone Oral Soln) 40 mg PO DAILY [facility] Quetiapine Fumarate (Seroquel) 25 mg PO HS PRN; Protocol PRN Reason: Insomnia Last Admin: 04/10/17 23:01 Dose: 25 mg Thiamine HCl (Vitamin B1 Tab) 100 mg PO DAILY [facility] Last Admin: 04/11/17 09:08 Dose: 100 mg Verapamil HCl (Calan Tab) 80 mg PO TID [facility] Last Admin: 04/11/17 13:40 Dose: Not Given Ziprasidone (Geodon Inj) 10 mg IM Q12 PRN; Protocol PRN Reason: severe agitation - Labs Labs: 04/10/17 09:00 04/11/17 08:00 PT 19.2 SECONDS (9.4-12.5) H 04/11/17 08:00 INR 1.65 (0.93-1.08) H 04/11/17 08:00 - Constitutional Appears: Non-toxic, No Acute Distress - Head Exam Head Exam: ATRAUMATIC, NORMOCEPHALIC - Eye Exam Eye Exam: EOMI, PERRL, Scleral icterus - ENT Exam ENT Exam: Mucous Membranes Moist - Neck Exam Neck Exam: Normal Inspection - Respiratory Exam Respiratory Exam: Clear to Ausculation Bilateral, NORMAL BREATHING PATTERN - Cardiovascular Exam Cardiovascular Exam: Irregular Rhythm, +S1, +S2 Additional comments: Patient was tachycardic in the AM, then on reexamination, tachycardia resolved. - GI/Abdominal Exam GI & Abdominal Exam: Soft. absent: Distended, Firm, Guarding, Rigid, Tenderness - Extremities Exam Extremities Exam: Pedal Edema (3-4+ bilaterally, to knees, L>R). absent: Calf Tenderness - Neurological Exam Neurological Exam: Alert, Awake, Oriented x3. absent: Normal Gait (wide based gait) Additional comments: No tremor or asterixis - Psychiatric Exam Psychiatric exam: Normal Affect, Normal Mood - Skin Skin Exam: Dry, Intact Additional comments: Palmar erythema Grossly jaundiced 3-4 red 1cm macules on dorsal aspect of each forearm, blanchable, nontender, normal surrounding skin. Assessment and Plan - Assessment and Plan (Free Text) Assessment: 51 year old male with a past medical history of dilated cardiomyopathy s/p single chamber ventricular pacemaker placement, chronic atrial fibrillation, alcohol abuse w/ severe withdrawals, alcoholic hepatitis thrombocytopenia, peptic ulcer disease and depression who presented to [facility] psych unit from med- surg unit for continued surveillance and treatment. Medicine team following up on jaundice and alcoholic hepatitis Plan: 1. Alcohol abuse and treatment - continue psych treatment - Stressed consequences of further alcohol consumption, patient verbalizes understanding 2. Jaundice - Patient likely has alcoholic hepatitis - Bilirubin remains elevated, though decreased since yesterday; PT continues to increase; no abdominal pain - Maddrey's DF 45, indicating treatment with steroids - Viral hep panel negative; Liver US significant for sludge vs mass in gallbladder, no liver masses, no biliary obstruction - Start Prednisolone 40mg QD - Patient will require follow up with PMD or postal transportation clerk upon discharge - GI on consult; appreciate recs 3. Atrial fibrillation with rapid ventricular response - Continue atenolol, digoxin, verapmil - Patient was tachycardic on exam this morning, and relatively hypotensive; patient instructed to increase fluid intake, on reexamination, HR normalized, and BP improved very slightly, though still relatively low; midodrine started, as below 4. Peripheral edema - Patient complaining of uncomfortable swelling in both legs, L>R - Low risk for DVT considering ambulation and physical exam findings; more likely 2/2 liver disease - Ordered bilateral LE duplex to r/o DVT - Ordered AE hose - Cannot start diuretics at this time due to low BP; will start midodrine and monitor response 5. Alcoholic Bone Marrow Suppression - Pancytopenic - Cont to monitor 6. Dilated Cardiomyopathy - Continue with cardiac medication regimen as listed above 7. Hypertension - BP decreased today; cannot decrease antihypertensives also used for rate control - Started Midodrine 10mg PO TID; will monitor response 8. Depression - Management per psych - Cont Seroquel 9. Peptic ulcer disease - Pepcid 20 mg PO daily 10. Hypothyroidism - cont synthroid PPX - pepcid - patient is ambulating so no need for dvt ppx Patient was seen, examined and discussed with attending, Dr. Pacheco
[2017-04-11] MEDS: Digoxin 250 mcg (0.25 mg) Tab PO SCH (18:02)
[2017-04-11] MEDS: PrednisoLONE 15 mg/5 ml Oral Syrup (240 ml) PO SCH (18:04)
--- NOTE | 2017-04-11 18:04 | US ---
HISTORY: Leg pain and swelling. Evaluate for DVT PHYSICIAN(S): Aaron Srivastava MD. TECHNIQUE: Duplex sonography and color-flow Doppler with graded compression were used to evaluate the deep venous systems of both lower extremities. The exam is limited by edema. The tibial veins are not well seen. FINDINGS: The visualized deep venous systems of both lower extremities are sonographically normal and compressible. Normal wave forms and augmentation are seen. There is no sonographic evidence for deep venous thrombosis in the visualized segments of both lower extremities. IMPRESSION: No sonographic evidence for deep venous thrombosis in the visualized segments of both lower extremities.
[2017-04-12] MEDS: Magnesium Oxide 400 mg Tab UD PO SCH ×2 (09:46→17:01)
[2017-04-12] MEDS: Multivitamin With Minerals Tab PO SCH (09:47)
[2017-04-12] MEDS: Levothyroxine 25 MCG TAB PO SCH (09:47)
[2017-04-12] MEDS: Hydrocerin(120 gm) TOP SCH ×3 (09:57→17:55)
[2017-04-12] MEDS: oxyCODONE 5 mg Immediate Release Tab PO PRN ×3 (10:02→23:09)
[2017-04-12] MEDS: PrednisoLONE 15 mg/5 ml Oral Syrup (240 ml) PO SCH (11:41)
[2017-04-12] MEDS ORDERED: Iohexol 350 MG/100 ML VIAL ONE ×2 (13:29→13:33)
--- NOTE | 2017-04-12 14:07 | CP.PCM.PN ---
Subjective - Date & Time of Evaluation Date of Evaluation: 04/12/17 Time of Evaluation: 14:06 - Subjective Subjective: 51 year old alcoholic with a past medical history of atrial fibrillation, Objective - Vital Signs/Intake and Output Vital Signs (last 24 hours): Temp Pulse Resp BP Pulse Ox 97.8 F 78 20 114/78 100 04/12/17 07:30 04/12/17 13:54 04/12/17 07:30 04/12/17 13:54 04/10/17 07:09 - Medications Medications: Current Medications Acetaminophen (Tylenol 325mg Tab) 650 mg PO Q4 PRN PRN Reason: Pain, Mild (1-3) Last Admin: 04/11/17 12:02 Dose: 650 mg Acetaminophen (Tylenol 325mg Tab) 650 mg PO Q6 PRN PRN Reason: Pain, moderate (4-7) Al Hydrox/Mg Hydrox/Simethicone (Maalox Plus 30 Ml) 30 ml PO DAILY PRN PRN Reason: Upset Stomach Atenolol (Tenormin) 25 mg PO DAILY [facility] Last Admin: 04/12/17 09:50 Dose: 25 mg Digoxin (Lanoxin) 0.25 mg PO 1800 [facility] Last Admin: 04/11/17 18:02 Dose: 0.25 mg Diphenhydramine HCl (Benadryl) 25 mg PO Q6 PRN PRN Reason: Itching / Pruritus Last Admin: 04/09/17 23:03 Dose: 25 mg Famotidine (Pepcid) 20 mg PO DAILY [facility] Last Admin: 04/12/17 09:47 Dose: 20 mg Folic Acid (Folic Acid) 1 mg PO DAILY [facility] Last Admin: 04/12/17 09:47 Dose: 1 mg Hydrocortisone (Cortizone 1% Cream) 1 gm TOP BID PRN PRN Reason: Itching / Pruritus Last Admin: 04/08/17 17:03 Dose: 1 cer Levothyroxine Sodium (Synthroid) 25 mcg PO 0600 [facility] Last Admin: 04/12/17 09:47 Dose: 25 mcg Lorazepam (Ativan) 2 mg PO Q6 PRN; Protocol PRN Reason: alcohol withdrawal Last Admin: 04/11/17 22:54 Dose: 2 mg Magnesium Hydroxide (Milk Of Magnesia) 30 ml PO DAILY PRN PRN Reason: Constipation Magnesium Oxide (Mag-Ox) 400 mg PO BID [facility] Last Admin: 04/12/17 09:46 Dose: 400 mg Midodrine (Proamatine) 10 mg PO TID [facility] Last Admin: 04/12/17 13:55 Dose: 10 mg Multi-Ingredient Cream (Hydrocerin Cream) 1 ea TOP TID [facility] Last Admin: 04/12/17 13:56 Dose: 1 cre Multi-Ingredient Ointment (Prep-Hem) 2 ea TOP Q6H PRN PRN Reason: Itching / Pruritus Last Admin: 04/11/17 14:56 Dose: 1 applic Multivitamins/Minerals (Therapeutic-M Tab) 1 tab PO 0800 [facility] Last Admin: 04/12/17 09:47 Dose: 1 tab Ondansetron HCl (Zofran Tab) 4 mg PO Q8H PRN PRN Reason: Nausea/Vomiting Oxycodone HCl (Oxycodone Immediate Release Tab) 5 mg PO Q6H PRN PRN Reason: Pain, severe (8-10) Last Admin: 04/12/17 10:02 Dose: 5 mg Prednisolone (Prednisolone Oral Soln) 40 mg PO DAILY [facility] Last Admin: 04/12/17 11:41 Dose: 40 mg Quetiapine Fumarate (Seroquel) 25 mg PO HS PRN; Protocol PRN Reason: Insomnia Last Admin: 04/11/17 22:54 Dose: 25 mg Thiamine HCl (Vitamin B1 Tab) 100 mg PO DAILY [facility] Last Admin: 04/12/17 09:55 Dose: 100 mg Verapamil HCl (Calan Tab) 80 mg PO TID [facility] Last Admin: 04/12/17 13:54 Dose: 80 mg Ziprasidone (Geodon Inj) 10 mg IM Q12 PRN; Protocol PRN Reason: severe agitation - Labs Labs: 04/10/17 09:00 04/11/17 08:00 PT 19.2 SECONDS (9.4-12.5) H 04/11/17 08:00 INR 1.65 (0.93-1.08) H 04/11/17 08:00
--- NOTE | 2017-04-12 14:12 | CP.PCM.CON ---
History of Present Illness - History of Present Illness History of Present Illness: 51 year old alcoholic male with a past medical history of dilated cardiomyopathy s/p single chamber ventricular pacemaker placement, chronic atrial fibrillation, alcohol abuse with severe withdrawals, alcoholic hepatitis with thrombocytopenia, peptic ulcer disease, and depression who presented to [facility] [place] initially for a fall in the shower, but was found to be in atrial fibrillation with RVR on admission. The patient was rate controlled on telemetry and was transferred to the the medical surgical floor. At some point while he was on the medical surgical floor, he expressed some form of suicidality. He was therefore transferred in-patient to psychiatry with close medical surveillance. His biliriubin jumped to the 20 g/dL range and the patient is visibly jaundiced with scleral icterus and complaints of pruritus. Upon my encounter, the patient complaints of easy bruising, discoloration around the anterior abdominal wall/flank, recent worsening lower extremity edema , two weeks of jaundice, rash on extensor surface of the extremities, and pruritus. He further admits to chronic diarrhea and light colored stools. He denies weight loss, early satiety, night sweats, bloating, anorexia, and post- prandial pain. The patient admits to occasional generalized abdominal discomfort , but denied RUQ pain specifically. Important to note, that the patient has recently been started on a host of new medications in light of his psychiatric admission, alcohol withdrawal, and decompensated alcohol hepatitis. He reports that his appetite has been the same and has never returned to normal since he had gastric-bypass a decade or so ago. Surgery was consulted for given abdominal ultrasound showed findings of possible tumefactive sludge versus neoplasm within gallbladder and a thickened gallbladder wall. Past medical history: Alcohol hepatitis, obesity status post gastric bypass Surgical history: Single chamber ventricular pacemaker placement Family History: non-contributory Social History: Alcohol abuse, denies tobacco use, denies illicit drug use Review of Systems - Review of Systems All systems: reviewed and no additional remarkable complaints except Review of Systems: as per hpi Past Patient History - Infectious Disease Hx of Infectious Diseases: None - Tetanus Immunizations Tetanus Immunization: Unknown - Past Medical History & Family History Past Medical History?: Yes - Past Social History Smoking Status: Former Smoker Alcohol: > 2 Drinks/Day Drugs: Denies Home Situation {Lives}: Alone - CARDIAC Hx Cardiac Disorders: Yes Hx Atrial Fibrillation: Yes Hx Pacemaker: No - PULMONARY Hx Respiratory Disorders: Yes (shortness of breath,CIGARETTES AND CIGAR SMOKER.OCCASIONAL) - NEUROLOGICAL Hx Neurological Disorder: Yes - HEENT Hx HEENT Problems: Yes (eyeglasses) Other/Comment: 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 related noise exposure - RENAL Hx Chronic Kidney Disease: No - ENDOCRINE/METABOLIC Hx Endocrine Disorders: No - HEMATOLOGICAL/ONCOLOGICAL Hx Cancer: No - INTEGUMENTARY Hx Dermatological Problems: No Other/Comment: tatoos, bruise to left abd and rib area, left eye orbit eccymosis fell at home 10/18/16 - MUSCULOSKELETAL/RHEUMATOLOGICAL Hx Musculoskeletal Disorders: Yes (RIB FX) Hx Back Pain: Yes Hx Falls: Yes Hx Fractures: Yes (Rib) - GASTROINTESTINAL Hx Gastrointestinal Disorders: Yes (ACUTE PANCREATITIS) Hx Diverticulitis: Yes Hx Liver Failure: Yes (Abnormal Liver function test) Hx Pancreatitis: Yes Hx Ulcer: Yes (PUD) - GENITOURINARY/GYNECOLOGICAL Hx Genitourinary Disorders: No - PSYCHIATRIC Hx Psychophysiologic Disorder: Yes Hx Anxiety: Yes Hx Depression: Yes Hx Substance Use: No Other/Comment: alcohol abuse and withdrawal/ delirium.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 [employer] - SURGICAL HISTORY Hx Mastectomy: No - ANESTHESIA Hx Anesthesia: Yes Hx Anesthesia Reactions: No Hx Malignant Hyperthermia: No Meds Allergies/Adverse Reactions: Allergies Allergy/AdvReac Type Severity Reaction Status Date / Time No Known Allergies Allergy Verified 04/06/17 23:28 - Medications Medications: Current Medications Acetaminophen (Tylenol 325mg Tab) 650 mg PO Q4 PRN PRN Reason: Pain, Mild (1-3) Last Admin: 04/11/17 12:02 Dose: 650 mg Acetaminophen (Tylenol 325mg Tab) 650 mg PO Q6 PRN PRN Reason: Pain, moderate (4-7) Al Hydrox/Mg Hydrox/Simethicone (Maalox Plus 30 Ml) 30 ml PO DAILY PRN PRN Reason: Upset Stomach Atenolol (Tenormin) 25 mg PO DAILY [facility] Last Admin: 04/12/17 09:50 Dose: 25 mg Digoxin (Lanoxin) 0.25 mg PO 1800 [facility] Last Admin: 04/11/17 18:02 Dose: 0.25 mg Diphenhydramine HCl (Benadryl) 25 mg PO Q6 PRN PRN Reason: Itching / Pruritus Last Admin: 04/09/17 23:03 Dose: 25 mg Famotidine (Pepcid) 20 mg PO DAILY [facility] Last Admin: 04/12/17 09:47 Dose: 20 mg Folic Acid (Folic Acid) 1 mg PO DAILY [facility] Last Admin: 04/12/17 09:47 Dose: 1 mg Hydrocortisone (Cortizone 1% Cream) 1 gm TOP BID PRN PRN Reason: Itching / Pruritus Last Admin: 04/08/17 17:03 Dose: 1 cer Levothyroxine Sodium (Synthroid) 25 mcg PO 0600 [facility] Last Admin: 04/12/17 09:47 Dose: 25 mcg Lorazepam (Ativan) 2 mg PO Q6 PRN; Protocol PRN Reason: alcohol withdrawal Last Admin: 04/11/17 22:54 Dose: 2 mg Magnesium Hydroxide (Milk Of Magnesia) 30 ml PO DAILY PRN PRN Reason: Constipation Magnesium Oxide (Mag-Ox) 400 mg PO BID [facility] Last Admin: 04/12/17 09:46 Dose: 400 mg Midodrine (Proamatine) 10 mg PO TID [facility] Last Admin: 04/12/17 13:55 Dose: 10 mg Multi-Ingredient Cream (Hydrocerin Cream) 1 ea TOP TID [facility] Last Admin: 04/12/17 13:56 Dose: 1 cre Multi-Ingredient Ointment (Prep-Hem) 2 ea TOP Q6H PRN PRN Reason: Itching / Pruritus Last Admin: 04/11/17 14:56 Dose: 1 applic Multivitamins/Minerals (Therapeutic-M Tab) 1 tab PO 0800 [facility] Last Admin: 04/12/17 09:47 Dose: 1 tab Ondansetron HCl (Zofran Tab) 4 mg PO Q8H PRN PRN Reason: Nausea/Vomiting Oxycodone HCl (Oxycodone Immediate Release Tab) 5 mg PO Q6H PRN PRN Reason: Pain, severe (8-10) Last Admin: 04/12/17 10:02 Dose: 5 mg Prednisolone (Prednisolone Oral Soln) 40 mg PO DAILY [facility] Last Admin: 04/12/17 11:41 Dose: 40 mg Quetiapine Fumarate (Seroquel) 25 mg PO HS PRN; Protocol PRN Reason: Insomnia Last Admin: 04/11/17 22:54 Dose: 25 mg Thiamine HCl (Vitamin B1 Tab) 100 mg PO DAILY [facility] Last Admin: 04/12/17 09:55 Dose: 100 mg Verapamil HCl (Calan Tab) 80 mg PO TID [facility] Last Admin: 04/12/17 13:54 Dose: 80 mg Ziprasidone (Geodon Inj) 10 mg IM Q12 PRN; Protocol PRN Reason: severe agitation Physical Exam - Constitutional Appears: No Acute Distress Additional comments: jaundiced - Head Exam Head Exam: ATRAUMATIC, NORMOCEPHALIC Additional comments: nasal septum deviates - Eye Exam Eye Exam: Scleral icterus - ENT Exam ENT Exam: Mucous Membranes Moist - Neck Exam Neck exam: Positive for: Normal Inspection - Respiratory Exam Respiratory Exam: NORMAL BREATHING PATTERN. absent: Accessory Muscle Use - GI/Abdominal Exam GI & Abdominal Exam: Normal Bowel Sounds, Organomegaly (hepatosplenomegaly), Tenderness (generalized, negative Garcia's sign). absent: Guarding, Rebound - Rectal Exam Rectal Exam: Deferred - Extremities Exam Extremities exam: Positive for: normal inspection, pedal edema - Back Exam Back exam: NORMAL INSPECTION. absent: CVA tenderness (L), CVA tenderness (R) - Neurological Exam Neurological exam: Alert, Oriented x3 - Psychiatric Exam Psychiatric exam: Normal Affect, Normal Mood - Skin Additional comments: jaundiced, palmar erythema. Results - Vital Signs Recent Vital Signs: Last Vital Signs Temp 97.8 F 04/12/17 07:30 Pulse 78 04/12/17 13:54 Resp 20 04/12/17 07:30 BP 114/78 04/12/17 13:54 Pulse Ox 100 04/10/17 07:09 - Labs Result Diagrams: 04/10/17 09:00 04/11/17 08:00 Assessment & Plan - Assessment and Plan (Free Text) Assessment: 51 year old male alcoholic with a past medical history of atrial fibrillation, alcoholic hepatitis with thrombocytopenia who has a remarkably elevated bilirubin and an abdominal US that showed possible tumefactive sludge versus neoplasm within gallbladder and a thickened gallbladder wall. Surgery was consulted in light of these findings. Plan: -Concern for gallbladder neoplasm may be further pursued with gadolinium enhanced magnetic resonance imaging. - CT of abdomen without contrast noted. -Patient's signs and symptoms do not warrant any surgical intervention - We will continue to follow with you -Case discussed with attending, Dr. Anil Benito DO, PGY-1 - Date & Time Date: 04/12/17 Time: 15:07
--- NOTE | 2017-04-12 14:36 | CT ---
PROCEDURE: CT Abdomen with intravenous contrast What that HISTORY: Gallbladder mass COMPARISON: 10/23/2016: Abdominal ultrasound and CT abdomen and pelvis. 2017. Abdominal ultrasound TECHNIQUE: Axial images of the abdomen from lung bases to iliac crest following administration of 100 cc Omnipaque 350 intravenous contrast enhancement. Coronal and sagittal reformats generated. Oral contrast was administered. Radiation dose: Total exam DLP = 644.47 mGy-cm. This CT exam was performed using one or more of the following dose reduction techniques: Automated exposure control, adjustment of the mA and/or kV according to patient size, and/or use of iterative reconstruction technique. FINDINGS: LOWER THORAX: Unremarkable. LIVER: Hepatic steatosis. No focal masses. No intrahepatic bile duct dilatation or perihepatic ascites. GALLBLADDER AND BILE DUCTS: There is no discrete gallbladder mass. Gallbladder wall is thickened displaying contrast-enhanced characteristics suggestive of mild inflammatory process. Pericholecystic fluid noted. The findings suggest the possibility of acalculous cholecystitis. Pericholecystic, right upper quadrant inflammatory changes identified. These findings were not evident on prior CT scan the T7. PANCREAS: Unremarkable. No gross lesion or ductal dilatation. SPLEEN: Splenomegaly, orthogonal measurements 9.2 x 0.5 cm. ADRENALS: Unremarkable. No mass. KIDNEYS AND URETERS: Unremarkable. No hydronephrosis. No solid mass. Incidental finding(s): 1 cm left renal cyst. VASCULATURE: Unremarkable. No aortic aneurysm. BOWEL: Left upper margin, postoperative changes related to gastric surgery. APPENDIX: A normal appendix is not visualized. PERITONEUM: Unremarkable. No free fluid. No free air. LYMPH NODES: Unremarkable. No enlarged lymph nodes. BONES: No acute fracture. No significant interval change compared to the prior examination(s). OTHER FINDINGS: None. IMPRESSION: No gallbladder mass identified. Thickened gallbladder wall with contrast-enhancing characteristics suggestive of an acute inflammatory process. Right upper quadrant inflammatory changes about the gallbladder pericholecystic fluid. Acalculous cholecystitis should considered.
--- NOTE | 2017-04-12 15:14 | CP.PCM.PN ---
Subjective - Date & Time of Evaluation Date of Evaluation: 04/12/17 Time of Evaluation: 07:30 - Subjective Subjective: Luis Navarro DO PGY1 - Internal Medicine Progress Note Patient seen and examined at bedside in the psych andres. Patient reports no change in the swelling in his legs, and continues to complain of discomfort in both legs. He denies any chest pain, palpitations, abdominal pain, nausea, vomiting, diarrhea, constipation, fever, or chills. Objective - Vital Signs/Intake and Output Vital Signs (last 24 hours): Temp Pulse Resp BP Pulse Ox 97.8 F 78 20 114/78 100 04/12/17 07:30 04/12/17 13:54 04/12/17 07:30 04/12/17 13:54 04/10/17 07:09 - Medications Medications: Current Medications Acetaminophen (Tylenol 325mg Tab) 650 mg PO Q4 PRN PRN Reason: Pain, Mild (1-3) Last Admin: 04/11/17 12:02 Dose: 650 mg Acetaminophen (Tylenol 325mg Tab) 650 mg PO Q6 PRN PRN Reason: Pain, moderate (4-7) Al Hydrox/Mg Hydrox/Simethicone (Maalox Plus 30 Ml) 30 ml PO DAILY PRN PRN Reason: Upset Stomach Atenolol (Tenormin) 25 mg PO DAILY [facility] Last Admin: 04/12/17 09:50 Dose: 25 mg Digoxin (Lanoxin) 0.25 mg PO 1800 [facility] Last Admin: 04/11/17 18:02 Dose: 0.25 mg Diphenhydramine HCl (Benadryl) 25 mg PO Q6 PRN PRN Reason: Itching / Pruritus Last Admin: 04/09/17 23:03 Dose: 25 mg Famotidine (Pepcid) 20 mg PO DAILY [facility] Last Admin: 04/12/17 09:47 Dose: 20 mg Folic Acid (Folic Acid) 1 mg PO DAILY [facility] Last Admin: 04/12/17 09:47 Dose: 1 mg Hydrocortisone (Cortizone 1% Cream) 1 gm TOP BID PRN PRN Reason: Itching / Pruritus Last Admin: 04/08/17 17:03 Dose: 1 cer Levothyroxine Sodium (Synthroid) 25 mcg PO 0600 [facility] Last Admin: 04/12/17 09:47 Dose: 25 mcg Lorazepam (Ativan) 2 mg PO Q6 PRN; Protocol PRN Reason: alcohol withdrawal Last Admin: 04/11/17 22:54 Dose: 2 mg Magnesium Hydroxide (Milk Of Magnesia) 30 ml PO DAILY PRN PRN Reason: Constipation Magnesium Oxide (Mag-Ox) 400 mg PO BID [facility] Last Admin: 04/12/17 09:46 Dose: 400 mg Midodrine (Proamatine) 10 mg PO TID [facility] Last Admin: 04/12/17 13:55 Dose: 10 mg Multi-Ingredient Cream (Hydrocerin Cream) 1 ea TOP TID [facility] Last Admin: 04/12/17 13:56 Dose: 1 cre Multi-Ingredient Ointment (Prep-Hem) 2 ea TOP Q6H PRN PRN Reason: Itching / Pruritus Last Admin: 04/11/17 14:56 Dose: 1 applic Multivitamins/Minerals (Therapeutic-M Tab) 1 tab PO 0800 [facility] Last Admin: 04/12/17 09:47 Dose: 1 tab Ondansetron HCl (Zofran Tab) 4 mg PO Q8H PRN PRN Reason: Nausea/Vomiting Oxycodone HCl (Oxycodone Immediate Release Tab) 5 mg PO Q6H PRN PRN Reason: Pain, severe (8-10) Last Admin: 04/12/17 10:02 Dose: 5 mg Prednisolone (Prednisolone Oral Soln) 40 mg PO DAILY [facility] Last Admin: 04/12/17 11:41 Dose: 40 mg Quetiapine Fumarate (Seroquel) 25 mg PO HS PRN; Protocol PRN Reason: Insomnia Last Admin: 04/11/17 22:54 Dose: 25 mg Thiamine HCl (Vitamin B1 Tab) 100 mg PO DAILY [facility] Last Admin: 04/12/17 09:55 Dose: 100 mg Verapamil HCl (Calan Tab) 80 mg PO TID [facility] Last Admin: 04/12/17 13:54 Dose: 80 mg Ziprasidone (Geodon Inj) 10 mg IM Q12 PRN; Protocol PRN Reason: severe agitation - Labs Labs: 04/10/17 09:00 04/11/17 08:00 PT 19.2 SECONDS (9.4-12.5) H 04/11/17 08:00 INR 1.65 (0.93-1.08) H 04/11/17 08:00 - Constitutional Appears: Non-toxic, No Acute Distress - Head Exam Head Exam: ATRAUMATIC, NORMOCEPHALIC - Eye Exam Eye Exam: EOMI, PERRL, Scleral icterus - ENT Exam ENT Exam: Mucous Membranes Moist - Neck Exam Neck Exam: Normal Inspection - Respiratory Exam Respiratory Exam: Clear to Ausculation Bilateral, NORMAL BREATHING PATTERN - Cardiovascular Exam Cardiovascular Exam: Irregular Rhythm, +S1, +S2. absent: Tachycardia - GI/Abdominal Exam GI & Abdominal Exam: Soft, Organomegaly. absent: Distended, Firm, Guarding, Rigid, Tenderness Additional comments: No fluid wave. No shifting dullness. - Extremities Exam Extremities Exam: Pedal Edema (3-4+ pitting edema to knees). absent: Calf Tenderness - Neurological Exam Neurological Exam: Alert, Awake, Oriented x3 Additional comments: No tremor. No asterixis. - Psychiatric Exam Psychiatric exam: Normal Affect, Normal Mood - Skin Skin Exam: Dry, Intact Additional comments: Grossly jaundiced Assessment and Plan - Assessment and Plan (Free Text) Assessment: 51 year old male with a past medical history of dilated cardiomyopathy s/p single chamber ventricular pacemaker placement, chronic atrial fibrillation, alcohol abuse w/ severe withdrawals, alcoholic hepatitis thrombocytopenia, peptic ulcer disease and depression who presented to [facility] psych unit from med- surg unit for continued surveillance and treatment. Medicine team following up on jaundice and alcoholic hepatitis Plan: 1. Alcohol abuse and treatment - continue psych treatment - Stressed consequences of further alcohol consumption, patient verbalizes understanding 2. Jaundice - Patient likely has alcoholic hepatitis - Bilirubin remains elevated, though decreased since yesterday; PT continues to increase; no abdominal pain - Maddrey's DF >32, indicating treatment with steroids - Viral hep panel negative; Liver US significant for sludge vs mass in gallbladder, no liver masses, no biliary obstruction - CT abdomen with contrast ordered to r/o gallbladder neoplasm (patient has pacemaker, cannot do MRI in this facility) - Continue Prednisolone 40mg QD - Patient will require follow up with PMD or timber surveyor upon discharge - GI on consult; appreciate recs 3. Atrial fibrillation - rate controlled - Continue atenolol, digoxin, verapmil - Continue midodrine, as below 4. Peripheral edema - Patient complaining of uncomfortable swelling in both legs, L>R - Ordered bilateral LE duplex to r/o DVT; negative for DVT - Continue AE hose - Patient BP slightly improved today; will start diuresis tomorrow with Lasix +/ - aldactone 5. Alcoholic Bone Marrow Suppression - Pancytopenic - Cont to monitor 6. Dilated Cardiomyopathy - Continue with cardiac medication regimen as listed above 7. Hypertension - BP now stable on current regimen - Continue Midodrine 10mg PO TID; will monitor response 8. Depression - Management per psych - Cont Seroquel 9. Peptic ulcer disease - Pepcid 20 mg PO daily 10. Hypothyroidism - cont synthroid PPX - pepcid - patient is ambulating so no need for dvt ppx
[2017-04-12] MEDS: Digoxin 250 mcg (0.25 mg) Tab PO SCH (17:55)
--- NOTE | 2017-04-12 21:09 | PCM.PYCHPN ---
Psychiatric Progress Note - Psychiatric Progress Note Patient seen today, length of contact: 25 min Patient Chief Complaint: "I am having a lot of trouble with my memory" Problems Identified/Issues Discussed: Patient is a 51 year old white male who was first admitted to the hospital on March 29 2017, presenting in the ER with back pain related to a fall in the shower. He was found to be in atrial fibrillation with rapid ventricular response. He was admitted to the telemetry unit and subsequently went into alcohol withdrawal. He was followed by psychiatry due to concerns regarding his severe alcoholism and living alone, indicated that he was depressed and expressed suicidal ideation. He consented to be voluntarily admitted to the inpatient psychiatric unit with the plan being that he will be referred for longer term alcohol treatment on discharge. Patient continues jaundiced, ADL's fair. Patient is no longer suicidal, however his conversation is repetitive and he has changed his discharge plan again, is unsure about rehab. Patient appears to be very dependent and his parents seem to have played a big role in patient's decision making up until they and patient is having real difficulty in being able to commit to a plan and follow through with his own reasoning. He is not processing well cognitively and is struggling. The medical team are actively working up his liver issues and patient is compliant with the testing scheduled. He is social on the unit, attends groups and is pleasant and cooperative. Medical Problems: 51 year old male with a past medical history of dilated cardiomyopathy s/p single chamber ventricular pacemaker placement, chronic atrial fibrillation, alcohol abuse w/ severe withdrawals, alcoholic hepatitis thrombocytopenia, peptic ulcer disease and depression Diagnostic Results: Laboratory Results - last 24 hr 04/08/17 04/10/17 04/10/17 19:00 09:00 09:00 WBC 5.1 RBC 2.99 L Hgb 10.3 L Hct 31.6 L MCV 105.7 H MCH 34.4 MCHC 32.6 RDW 15.1 H Plt Count 186 MPV 11.3 H PT 18.0 H INR 1.55 H Sodium Potassium Chloride Carbon Dioxide Anion Gap BUN Creatinine Est GFR ( Amer) Est GFR (Non-Af Amer) Random Glucose Hemoglobin A1c 3.7 L Calcium Total Bilirubin AST ALT Alkaline Phosphatase Total Protein Albumin Globulin Albumin/Globulin Ratio 04/10/17 09:00 WBC RBC Hgb Hct MCV MCH MCHC RDW Plt Count MPV PT INR Sodium 133 Potassium 4.1 Chloride 102 Carbon Dioxide 24 Anion Gap 12 BUN 11 Creatinine 0.6 L Est GFR ( Amer) > 60 Est GFR (Non-Af Amer) > 60 Random Glucose 118 H Hemoglobin A1c Calcium 9.1 Total Bilirubin 20.6 H* AST 204 H ALT 101 H Alkaline Phosphatase 162 H Total Protein 7.6 Albumin 3.1 Globulin 4.5 Albumin/Globulin Ratio 0.7 L Temp Pulse Resp BP Pulse Ox 98.5 F 65 18 89/57 L 100 04/10/17 07:09 04/10/17 07:09 04/10/17 07:09 04/10/17 07:09 04/10/17 07:09 Abnormal Lab Results 04/10/17 04/11/17 04/11/17 09:00 08:00 08:00 PT 19.2 H INR 1.65 H Sodium 132 Potassium 4.1 Chloride 102 Carbon Dioxide 22 Anion Gap 12 BUN 12 Creatinine 0.5 L Est GFR ( Amer) > 60 Est GFR (Non-Af Amer) > 60 Random Glucose 86 Calcium 8.5 Total Bilirubin 17.1 H AST 168 H ALT 89 H Alkaline Phosphatase 144 H Total Protein 6.4 Albumin 2.6 L Globulin 3.9 Albumin/Globulin Ratio 0.7 L Hepatitis A IgM Ab Negative Hep Bs Antigen Negative Hep B Core IgM Ab Negative Hepatitis C Antibody Negative Temp Pulse Resp BP Pulse Ox 99.1 F 80 20 97/67 L 100 04/11/17 07:24 04/11/17 11:56 04/11/17 07:24 04/11/17 11:56 04/10/17 07:09 Temp Pulse Resp BP Pulse Ox 97.8 F 92 H 20 126/85 100 04/12/17 07:30 04/12/17 17:52 04/12/17 07:30 04/12/17 17:52 04/10/17 07:09 Medication Change: No Medical Record Reviewed: Yes Consults ordered or reviewed: Consult per Dr Ndiaye, thank you F/U per Dr Thomson noted F/U per Dr Jamil noted Consult per Dr Gamez reviewed, thank you Mental Status Examination - Cognitive Function Orientation: Person, Place, Situation, Time Attention: WNL Concentration: Poor Association: Loose - Mood Mood: Depressed ("okay") - Affect Affect: Constricted, Blunted - Speech Speech: Appropriate - Formal Thought Process Formal Thought Process: Hallucinations ("shadows", patient doesn't appear to be responding to internal stimuli), Circumstantial Goal/Treatment Plan - Goal/Treatment Plan Progress Toward Problem(s) and Goals/Treatment Plan: Treatment plan: Milieu/structure/supportive therapy Medical consult appreciated, see medical team note for more detailed info SW consultation for discharge plan and social issues Med management Family involvement Follow up on labs Will monitor closely evaluation for d/c planning Pt was educated about risk/benefits and alternatives of medications, coping strategies (safety plan, suicide prevention), relapse prevention, importance of follow up with psychiatrist and therapist, stay away from drugs/alcohol/smoking
[2017-04-13] MEDS: oxyCODONE 5 mg Immediate Release Tab PO PRN ×3 (05:04→20:05)
[2017-04-13] MEDS: Levothyroxine 25 MCG TAB PO SCH (05:17)
--- NOTE | 2017-04-13 07:08 | PN ---
DATE: 04/13/2017 I reviewed the respected notes regarding Mr. Elvis Ybarra. I also discussed this case in detail with Dr. Pacheco yesterday. I suggested that the patient had an abdominal CT scan from yesterday which indicates that there was no discrete gallbladder mass. However, there was a thickened gallbladder wall, some mild pericholecystic fluid. The patient continues to deny any abdominal pain. I reviewed the notes of the respected consultants. As per the discussion, the patient was started on methylprednisolone for 40 mg daily which she is to continue for roughly about 28 days. In view of the patient's hepatitis serology, this was negative. Evaluation of the patient's clinical laboratory data as of yesterday indicates that the bilirubin reached a peak of 20.6, most recent value as of 04/11/2017 was 17.1. He has decreased transaminase ratio AST/ALT of 168/89, alk phos 144. Continue according to the plan we had discussed. Naseem Rossi DO, PhD JYOTI
[2017-04-13] MEDS: Hydrocerin(120 gm) TOP SCH ×3 (08:00→18:32)
[2017-04-13 08:05] LABS: HEMOGLOBIN 10.2 g/dL (14.0-18.0); MEAN CELL VOLUME 105.8 fl (80.0-105.0); MEAN CORPUSCULAR HEMOGLOBIN 34.7 pg (25.0-35.0); MEAN CORPUSCULAR HGB CONC 32.8 g/dl (31.0-37.0); MEAN PLATELET VOLUME 10.9 fl (7.0-11.0); RBC 2.94 10^6/uL (3.5-6.1); RED CELL DISTRIBUTION WIDTH 14.6 % (11.5-14.5); WHITE BLOOD COUNT 8.4 10^3/ul (4.5-11.0)
[2017-04-13 08:47] LABS: ALB/GLOB RATIO 0.7 (1.1-1.8); ALT/SGPT 93 U/L (7-56); AST/SGOT 153 U/L (17-59); BILIRUBIN,DIRECT 10.3 mg/dL (0.0-0.4); BLOOD UREA NITROGEN 14 mg/dL (7-21); CALCIUM 9.4 mg/dL (8.4-10.5); GFR AFRICAN-AMERICAN > 60; GFR NON-AFRICAN AMERICAN > 60
[2017-04-13] MEDS: Multivitamin With Minerals Tab PO SCH (09:28)
[2017-04-13] MEDS: Magnesium Oxide 400 mg Tab UD PO SCH ×2 (09:29→18:23)
--- NOTE | 2017-04-13 11:19 | CP.PCM.PN ---
<Luis Navarro - Last Filed: 04/13/17 11:16> Subjective - Date & Time of Evaluation Date of Evaluation: 04/13/17 Time of Evaluation: 07:30 - Subjective Subjective: Luis Navarro DO PGY1 - Internal Medicine Progress Note Patient seen and examined at bedside in the psych andres. Yesterday afternoon, patient fell while changing his pants, and caught himself with his right hand, and immediately felt pain in his right wrist with weakness and decreased ROM. Wrist XR was ordered, not yet reviewed. Patient still complaining of some right wrist pain and weakness. Patient reports no change in the swelling in his legs, and continues to complain of discomfort in both legs. He denies any chest pain, palpitations, abdominal pain, nausea, vomiting, diarrhea, constipation, fever, or chills. Objective - Vital Signs/Intake and Output Vital Signs (last 24 hours): Temp Pulse Resp BP Pulse Ox 97.5 F L 81 20 115/85 100 04/13/17 07:38 04/13/17 09:31 04/13/17 07:38 04/13/17 09:31 04/10/17 07:09 - Medications Medications: Current Medications Acetaminophen (Tylenol 325mg Tab) 650 mg PO Q4 PRN PRN Reason: Pain, Mild (1-3) Last Admin: 04/13/17 09:30 Dose: 650 mg Acetaminophen (Tylenol 325mg Tab) 650 mg PO Q6 PRN PRN Reason: Pain, moderate (4-7) Al Hydrox/Mg Hydrox/Simethicone (Maalox Plus 30 Ml) 30 ml PO DAILY PRN PRN Reason: Upset Stomach Atenolol (Tenormin) 25 mg PO DAILY [facility] Last Admin: 04/13/17 09:31 Dose: 25 mg Digoxin (Lanoxin) 0.25 mg PO 1800 [facility] Last Admin: 04/12/17 17:55 Dose: 0.25 mg Famotidine (Pepcid) 20 mg PO DAILY [facility] Last Admin: 04/13/17 09:29 Dose: 20 mg Folic Acid (Folic Acid) 1 mg PO DAILY [facility] Last Admin: 04/13/17 09:28 Dose: 1 mg Furosemide (Lasix) 20 mg PO BID [facility] Hydrocortisone (Cortizone 1% Cream) 1 gm TOP BID PRN PRN Reason: Itching / Pruritus Last Admin: 04/08/17 17:03 Dose: 1 cer Levothyroxine Sodium (Synthroid) 25 mcg PO 0600 [facility] Last Admin: 04/13/17 05:17 Dose: 25 mcg Lorazepam (Ativan) 2 mg PO Q6 PRN; Protocol PRN Reason: alcohol withdrawal Last Admin: 04/11/17 22:54 Dose: 2 mg Magnesium Hydroxide (Milk Of Magnesia) 30 ml PO DAILY PRN PRN Reason: Constipation Magnesium Oxide (Mag-Ox) 400 mg PO BID [facility] Last Admin: 04/13/17 09:29 Dose: 400 mg Midodrine (Proamatine) 10 mg PO TID [facility] Last Admin: 04/13/17 09:30 Dose: 10 mg Multi-Ingredient Cream (Hydrocerin Cream) 1 ea TOP TID [facility] Last Admin: 04/12/17 17:55 Dose: 1 cre Multi-Ingredient Ointment (Prep-Hem) 2 ea TOP Q6H PRN PRN Reason: Itching / Pruritus Last Admin: 04/11/17 14:56 Dose: 1 applic Multivitamins/Minerals (Therapeutic-M Tab) 1 tab PO 0800 [facility] Last Admin: 04/13/17 09:28 Dose: 1 tab Ondansetron HCl (Zofran Tab) 4 mg PO Q8H PRN PRN Reason: Nausea/Vomiting Oxycodone HCl (Oxycodone Immediate Release Tab) 5 mg PO Q6H PRN PRN Reason: Pain, severe (8-10) Last Admin: 04/13/17 05:04 Dose: 5 mg Potassium Chloride (Klor-Con 10) 10 meq PO BRKDIN [facility] Prednisolone (Prednisolone Oral Soln) 40 mg PO DAILY [facility] Last Admin: 04/12/17 11:41 Dose: 40 mg Quetiapine Fumarate (Seroquel) 25 mg PO HS PRN; Protocol PRN Reason: Insomnia Last Admin: 04/11/17 22:54 Dose: 25 mg Thiamine HCl (Vitamin B1 Tab) 100 mg PO DAILY [facility] Last Admin: 04/13/17 09:27 Dose: 100 mg Verapamil HCl (Calan Tab) 80 mg PO TID [facility] Last Admin: 04/13/17 09:28 Dose: 80 mg Ziprasidone (Geodon Inj) 10 mg IM Q12 PRN; Protocol PRN Reason: severe agitation - Labs Labs: 04/13/17 07:45 04/13/17 07:45 PT 19.2 SECONDS (9.4-12.5) H 04/11/17 08:00 INR 1.65 (0.93-1.08) H 04/11/17 08:00 - Constitutional Appears: Non-toxic, No Acute Distress - Head Exam Head Exam: ATRAUMATIC, NORMOCEPHALIC - Eye Exam Eye Exam: EOMI, PERRL, Scleral icterus - ENT Exam ENT Exam: Mucous Membranes Moist - Neck Exam Neck Exam: Normal Inspection - Respiratory Exam Respiratory Exam: Clear to Ausculation Bilateral, NORMAL BREATHING PATTERN - Cardiovascular Exam Cardiovascular Exam: RRR, +S1, +S2 - GI/Abdominal Exam GI & Abdominal Exam: Soft, Normal Bowel Sounds. absent: Tenderness Additional comments: No fluid wave. No shifting dullness - Extremities Exam Extremities Exam: absent: Calf Tenderness Additional comments: Bilateral lower extremity edema to knees, 3-4+ bilaterally. AE hoses worn. Right wrist with belinda wrap; held in a loosely gaurded position. Pulses palpable. Sensation and movement intact, but ROM limited by pain, with expressed weakness. - Neurological Exam Neurological Exam: Alert, Awake, Oriented x3 Neuro motor strength exam: Left Upper Extremity: 5, Right Upper Extremity: 5, Left Lower Extremity: 5, Right Lower Extremity: 5 - Psychiatric Exam Psychiatric exam: Normal Affect, Normal Mood - Skin Skin Exam: Dry, Intact, Normal Color Assessment and Plan - Assessment and Plan (Free Text) Assessment: 51 year old male with a past medical history of dilated cardiomyopathy s/p single chamber ventricular pacemaker placement, chronic atrial fibrillation, alcohol abuse w/ severe withdrawals, alcoholic hepatitis thrombocytopenia, peptic ulcer disease and depression who presented to [facility] psych unit from med- surg unit for continued surveillance and treatment. Medicine team following up on jaundice and alcoholic hepatitis Plan: 1. Alcohol abuse and treatment - continue psych treatment - Stressed consequences of further alcohol consumption, patient verbalizes understanding 2. Jaundice - Patient likely has alcoholic hepatitis - Bilirubin remains elevated, trending down; INR not drawn - Maddrey's DF >32, indicating treatment with steroids - Viral hep panel negative; Liver US significant for sludge vs mass in gallbladder, no liver masses, no biliary obstruction - CT abdomen with contrast does not show gallbladder mass; concerning for acalculous cholecystitis, but inflammation more likely 2/2 alcoholic hepatitis - Continue Prednisolone 40mg QD (d3 - started on 04/11/17) - Patient will require follow up with PMD or computer engineering professor upon discharge - GI on consult; appreciate recs 3. Atrial fibrillation - rate controlled - Continue atenolol, digoxin, verapmil - Continue midodrine, as below 4. Peripheral edema - Patient complaining of uncomfortable swelling in both legs - Will start Lasix and potassium supplement today; monitor response - Continue AE hose - Patient BP slightly improved today 5. R wrist trauma s/p fall - Patient fell on 04/12; no head trauma; no s/s seizures, arrhythmia, CVA - R wrist XR done, pending read - Instructed patient to wear roustabout crew pusher socks on top of AE hose, and avoid unstable positions; change pants while seated 6. Dilated Cardiomyopathy - Continue with cardiac medication regimen as listed above 7. Hypertension - BP now stable on current regimen - Continue Midodrine 10mg PO TID; will monitor response - Added lasix today for peripheral edema 8. Depression - Management per psych - Cont Seroquel 9. Peptic ulcer disease - Pepcid 20 mg PO daily 10. Hypothyroidism - cont synthroid PPX - pepcid - patient is ambulating so no need for dvt ppx <Elsie Garcia - Last Filed: 04/14/17 15:04> Objective - Vital Signs/Intake and Output Vital Signs (last 24 hours): Temp Pulse Resp BP Pulse Ox 97.5 F L 81 20 115/85 100 04/13/17 07:38 04/13/17 13:39 04/13/17 07:38 04/13/17 13:39 04/10/17 07:09 - Medications Medications: Current Medications Acetaminophen (Tylenol 325mg Tab) 650 mg PO Q4 PRN PRN Reason: Pain, Mild (1-3) Last Admin: 04/13/17 09:30 Dose: 650 mg Acetaminophen (Tylenol 325mg Tab) 650 mg PO Q6 PRN PRN Reason: Pain, moderate (4-7) Al Hydrox/Mg Hydrox/Simethicone (Maalox Plus 30 Ml) 30 ml PO DAILY PRN PRN Reason: Upset Stomach Atenolol (Tenormin) 25 mg PO DAILY [facility] Last Admin: 04/13/17 09:31 Dose: 25 mg Digoxin (Lanoxin) 0.25 mg PO 1800 [facility] Last Admin: 04/12/17 17:55 Dose: 0.25 mg Famotidine (Pepcid) 20 mg PO DAILY [facility] Last Admin: 04/13/17 09:29 Dose: 20 mg Folic Acid (Folic Acid) 1 mg PO DAILY [facility] Last Admin: 04/13/17 09:28 Dose: 1 mg Furosemide (Lasix) 20 mg PO BID [facility] Hydrocortisone (Cortizone 1% Cream) 1 gm TOP BID PRN PRN Reason: Itching / Pruritus Last Admin: 04/08/17 17:03 Dose: 1 cer Levothyroxine Sodium (Synthroid) 25 mcg PO 0600 [facility] Last Admin: 04/13/17 05:17 Dose: 25 mcg Lorazepam (Ativan) 2 mg PO Q6 PRN; Protocol PRN Reason: alcohol withdrawal Last Admin: 04/11/17 22:54 Dose: 2 mg Magnesium Hydroxide (Milk Of Magnesia) 30 ml PO DAILY PRN PRN Reason: Constipation Magnesium Oxide (Mag-Ox) 400 mg PO BID [facility] Last Admin: 04/13/17 09:29 Dose: 400 mg Midodrine (Proamatine) 10 mg PO TID [facility] Last Admin: 04/13/17 13:42 Dose: 10 mg Multi-Ingredient Cream (Hydrocerin Cream) 1 ea TOP TID [facility] Last Admin: 04/13/17 13:51 Dose: 1 cre Multi-Ingredient Ointment (Prep-Hem) 2 ea TOP Q6H PRN PRN Reason: Itching / Pruritus Last Admin: 04/11/17 14:56 Dose: 1 applic Multivitamins/Minerals (Therapeutic-M Tab) 1 tab PO 0800 [facility] Last Admin: 04/13/17 09:28 Dose: 1 tab Ondansetron HCl (Zofran Tab) 4 mg PO Q8H PRN PRN Reason: Nausea/Vomiting Oxycodone HCl (Oxycodone Immediate Release Tab) 5 mg PO Q6H PRN PRN Reason: Pain, severe (8-10) Last Admin: 04/13/17 13:39 Dose: 5 mg Potassium Chloride (Klor-Con 10) 10 meq PO BRKDIN [facility] Prednisolone (Prednisolone Oral Soln) 40 mg PO DAILY [facility] Last Admin: 04/13/17 13:42 Dose: 40 mg Quetiapine Fumarate (Seroquel) 25 mg PO HS PRN; Protocol PRN Reason: Insomnia Last Admin: 04/11/17 22:54 Dose: 25 mg Thiamine HCl (Vitamin B1 Tab) 100 mg PO DAILY [facility] Last Admin: 04/13/17 09:27 Dose: 100 mg Verapamil HCl (Calan Tab) 80 mg PO TID [facility] Last Admin: 04/13/17 13:39 Dose: 80 mg Ziprasidone (Geodon Inj) 10 mg IM Q12 PRN; Protocol PRN Reason: severe agitation - Labs Labs: 04/13/17 07:45 04/13/17 07:45 PT 19.2 SECONDS (9.4-12.5) H 04/11/17 08:00 INR 1.65 (0.93-1.08) H 04/11/17 08:00 Attending/Attestation - Attestation I have personally seen and examined this patient.: Yes I have fully participated in the care of the patient.: Yes I have reviewed all pertinent clinical information, including history, physical exam and plan: Yes Notes (Text): 04/13/17 15:35 Attending note; Patient seen and examined with resident in the psychiatric floor. Patient is alert, awake and oriented. Vitals stable. The patient apparently had a fall yesterday. Wrist x-ray showed acute nondisplaced distal radius fracture. Orthopedic evaluation recommended. Nursing staff informed. Alcoholic hepatitis; currently on prednisolone. Improving LFTs. Abdominal ultrasound showed questionable gallbladder mass. CT abdomen with contrast did not show any gallbladder mass. Minimal pericholecystic fluid. Patient is currently asymptomatic. Tolerating diet.surgery evaluation appreciated. Monitor closely. patient will be referred to [facility] hepatology clinic. Complete alcohol cessation is strongly advised. Patient does not follow up with any PMD as outpatient. Patient needs to follow up with PMD/cardiology/hepatology.
--- NOTE | 2017-04-13 11:39 | RAD ---
PROCEDURE: Right Wrist Radiographs. HISTORY: Fall COMPARISON: None. FINDINGS: BONES: Wall there is an acute nondisplaced comminuted mildly impacted fracture in the distal metaphysis of radius without significant angulation. Bone alignment is normal. There is mild periarticular bone demineralization. JOINTS: The proximal and distal carpal rows are maintained. The radiocarpal joint is normal. No dislocation. SOFT TISSUES: There is mild periarticular soft tissue swelling. OTHER FINDINGS: None. IMPRESSION: Acute nondisplaced comminuted mildly impacted fracture in the distal metaphysis of radius without significant angulation. No dislocation.
--- NOTE | 2017-04-13 12:41 | PCM.PYCHPN ---
Psychiatric Progress Note - Psychiatric Progress Note Patient seen today, length of contact: 25 min Patient Chief Complaint: "I fell and I think I broke my wrist" Problems Identified/Issues Discussed: Patient is a 51 year old white male who was first admitted to the hospital on March 29 2017, presenting in the ER with back pain related to a fall in the shower. He was found to be in atrial fibrillation with rapid ventricular response. He was admitted to the telemetry unit and subsequently went into alcohol withdrawal. He was followed by psychiatry due to concerns regarding his severe alcoholism and living alone, indicated that he was depressed and expressed suicidal ideation. He consented to be voluntarily admitted to the inpatient psychiatric unit with the plan being that he will be referred for longer term alcohol treatment on discharge. Patient continues jaundiced, ADL's fair. Patient evidently fell while getting into his pants yesterday and hurt his wrist. Medical team ordered x-ray and pt does have a fracture. Patient is psychiatrically stable, plan is to discharge in the next day or two. He does not want to go to rehab. He is not suicidal or homicidal, is "committed" to not drinking plans to attend AA. He is pleasant and cooperative on the unit, socializes with peers and attends groups. Medical Problems: 51 year old male with a past medical history of dilated cardiomyopathy s/p single chamber ventricular pacemaker placement, chronic atrial fibrillation, alcohol abuse w/ severe withdrawals, alcoholic hepatitis thrombocytopenia, peptic ulcer disease and depression Diagnostic Results: Laboratory Results - last 24 hr 04/08/17 04/10/17 04/10/17 19:00 09:00 09:00 WBC 5.1 RBC 2.99 L Hgb 10.3 L Hct 31.6 L MCV 105.7 H MCH 34.4 MCHC 32.6 RDW 15.1 H Plt Count 186 MPV 11.3 H PT 18.0 H INR 1.55 H Sodium Potassium Chloride Carbon Dioxide Anion Gap BUN Creatinine Est GFR ( Amer) Est GFR (Non-Af Amer) Random Glucose Hemoglobin A1c 3.7 L Calcium Total Bilirubin AST ALT Alkaline Phosphatase Total Protein Albumin Globulin Albumin/Globulin Ratio 04/10/17 09:00 WBC RBC Hgb Hct MCV MCH MCHC RDW Plt Count MPV PT INR Sodium 133 Potassium 4.1 Chloride 102 Carbon Dioxide 24 Anion Gap 12 BUN 11 Creatinine 0.6 L Est GFR ( Amer) > 60 Est GFR (Non-Af Amer) > 60 Random Glucose 118 H Hemoglobin A1c Calcium 9.1 Total Bilirubin 20.6 H* AST 204 H ALT 101 H Alkaline Phosphatase 162 H Total Protein 7.6 Albumin 3.1 Globulin 4.5 Albumin/Globulin Ratio 0.7 L Temp Pulse Resp BP Pulse Ox 98.5 F 65 18 89/57 L 100 04/10/17 07:09 04/10/17 07:09 04/10/17 07:09 04/10/17 07:09 04/10/17 07:09 Abnormal Lab Results 04/10/17 04/11/17 04/11/17 09:00 08:00 08:00 PT 19.2 H INR 1.65 H Sodium 132 Potassium 4.1 Chloride 102 Carbon Dioxide 22 Anion Gap 12 BUN 12 Creatinine 0.5 L Est GFR ( Amer) > 60 Est GFR (Non-Af Amer) > 60 Random Glucose 86 Calcium 8.5 Total Bilirubin 17.1 H AST 168 H ALT 89 H Alkaline Phosphatase 144 H Total Protein 6.4 Albumin 2.6 L Globulin 3.9 Albumin/Globulin Ratio 0.7 L Hepatitis A IgM Ab Negative Hep Bs Antigen Negative Hep B Core IgM Ab Negative Hepatitis C Antibody Negative Temp Pulse Resp BP Pulse Ox 99.1 F 80 20 97/67 L 100 04/11/17 07:24 04/11/17 11:56 04/11/17 07:24 04/11/17 11:56 04/10/17 07:09 Temp Pulse Resp BP Pulse Ox 97.8 F 92 H 20 126/85 100 04/12/17 07:30 04/12/17 17:52 04/12/17 07:30 04/12/17 17:52 04/10/17 07:09 Laboratory Results - last 24 hr 04/13/17 04/13/17 07:45 07:45 WBC 8.4 D RBC 2.94 L Hgb 10.2 L Hct 31.1 L MCV 105.8 H MCH 34.7 MCHC 32.8 RDW 14.6 H Plt Count 224 MPV 10.9 Sodium 133 Potassium 4.6 Chloride 102 Carbon Dioxide 24 Anion Gap 11 BUN 14 Creatinine 0.6 L Est GFR ( Amer) > 60 Est GFR (Non-Af Amer) > 60 Random Glucose 84 Calcium 9.4 Total Bilirubin 12.8 H Direct Bilirubin 10.3 H AST 153 H ALT 93 H Alkaline Phosphatase 157 H Total Protein 7.2 Albumin 3.0 Globulin 4.2 Albumin/Globulin Ratio 0.7 L Temp Pulse Resp BP Pulse Ox 97.5 F L 81 20 115/85 100 04/13/17 07:38 04/13/17 09:31 04/13/17 07:38 04/13/17 09:31 04/10/17 07:09 Medication Change: No Medical Record Reviewed: Yes Consults ordered or reviewed: Consult per Dr Ndiaye, thank you F/U per Dr Thomson noted F/U per Dr Jamil noted Consult per Dr Gamez reviewed, thank you Mental Status Examination - Cognitive Function Orientation: Person, Place, Situation, Time Attention: WNL Concentration: Poor Association: Loose - Mood Mood: Depressed ("okay") - Affect Affect: Constricted, Blunted - Speech Speech: Appropriate - Formal Thought Process Formal Thought Process: Hallucinations ("shadows", patient doesn't appear to be responding to internal stimuli), Circumstantial Goal/Treatment Plan - Goal/Treatment Plan Progress Toward Problem(s) and Goals/Treatment Plan: Treatment plan: Milieu/structure/supportive therapy Medical consult appreciated, see medical team note for more detailed info SW consultation for discharge plan and social issues Med management Family involvement Follow up on labs Will monitor closely evaluation for d/c planning Pt was educated about risk/benefits and alternatives of medications, coping strategies (safety plan, suicide prevention), relapse prevention, importance of follow up with psychiatrist and therapist, stay away from drugs/alcohol/smoking
[2017-04-13] MEDS: PrednisoLONE 15 mg/5 ml Oral Syrup (240 ml) PO SCH (13:42)
--- NOTE | 2017-04-13 16:40 | CP.PCM.PN ---
Subjective - Date & Time of Evaluation Date of Evaluation: 04/13/17 Time of Evaluation: 07:40 - Subjective Subjective: General Surgery Progress Note for Dr. Ma Patient seen and examined at bedside. Patient reports no nausea, vomiting, abdominal pain, or early satiety. Patient does complain of left sided rib pain and right wrist pain after sustaining a fall overnight. Objective - Vital Signs/Intake and Output Vital Signs (last 24 hours): Temp Pulse Resp BP Pulse Ox 97.5 F L 81 20 115/85 100 04/13/17 07:38 04/13/17 13:39 04/13/17 07:38 04/13/17 13:39 04/10/17 07:09 - Medications Medications: Current Medications Acetaminophen (Tylenol 325mg Tab) 650 mg PO Q4 PRN PRN Reason: Pain, Mild (1-3) Last Admin: 04/13/17 09:30 Dose: 650 mg Acetaminophen (Tylenol 325mg Tab) 650 mg PO Q6 PRN PRN Reason: Pain, moderate (4-7) Al Hydrox/Mg Hydrox/Simethicone (Maalox Plus 30 Ml) 30 ml PO DAILY PRN PRN Reason: Upset Stomach Atenolol (Tenormin) 25 mg PO DAILY [facility] Last Admin: 04/13/17 09:31 Dose: 25 mg Digoxin (Lanoxin) 0.25 mg PO 1800 [facility] Last Admin: 04/12/17 17:55 Dose: 0.25 mg Famotidine (Pepcid) 20 mg PO DAILY [facility] Last Admin: 04/13/17 09:29 Dose: 20 mg Folic Acid (Folic Acid) 1 mg PO DAILY [facility] Last Admin: 04/13/17 09:28 Dose: 1 mg Furosemide (Lasix) 20 mg PO BID [facility] Hydrocortisone (Cortizone 1% Cream) 1 gm TOP BID PRN PRN Reason: Itching / Pruritus Last Admin: 04/08/17 17:03 Dose: 1 cer Levothyroxine Sodium (Synthroid) 25 mcg PO 0600 [facility] Last Admin: 04/13/17 05:17 Dose: 25 mcg Lorazepam (Ativan) 2 mg PO Q6 PRN; Protocol PRN Reason: alcohol withdrawal Last Admin: 04/11/17 22:54 Dose: 2 mg Magnesium Hydroxide (Milk Of Magnesia) 30 ml PO DAILY PRN PRN Reason: Constipation Magnesium Oxide (Mag-Ox) 400 mg PO BID [facility] Last Admin: 04/13/17 09:29 Dose: 400 mg Midodrine (Proamatine) 10 mg PO TID [facility] Last Admin: 04/13/17 13:42 Dose: 10 mg Multi-Ingredient Cream (Hydrocerin Cream) 1 ea TOP TID [facility] Last Admin: 04/13/17 13:51 Dose: 1 cre Multi-Ingredient Ointment (Prep-Hem) 2 ea TOP Q6H PRN PRN Reason: Itching / Pruritus Last Admin: 04/11/17 14:56 Dose: 1 applic Multivitamins/Minerals (Therapeutic-M Tab) 1 tab PO 0800 [facility] Last Admin: 04/13/17 09:28 Dose: 1 tab Ondansetron HCl (Zofran Tab) 4 mg PO Q8H PRN PRN Reason: Nausea/Vomiting Oxycodone HCl (Oxycodone Immediate Release Tab) 5 mg PO Q6H PRN PRN Reason: Pain, severe (8-10) Last Admin: 04/13/17 13:39 Dose: 5 mg Potassium Chloride (Klor-Con 10) 10 meq PO BRKDIN [facility] Prednisolone (Prednisolone Oral Soln) 40 mg PO DAILY [facility] Last Admin: 04/13/17 13:42 Dose: 40 mg Quetiapine Fumarate (Seroquel) 25 mg PO HS PRN; Protocol PRN Reason: Insomnia Last Admin: 04/11/17 22:54 Dose: 25 mg Thiamine HCl (Vitamin B1 Tab) 100 mg PO DAILY [facility] Last Admin: 04/13/17 09:27 Dose: 100 mg Verapamil HCl (Calan Tab) 80 mg PO TID [facility] Last Admin: 04/13/17 13:39 Dose: 80 mg Ziprasidone (Geodon Inj) 10 mg IM Q12 PRN; Protocol PRN Reason: severe agitation - Labs Labs: 04/13/17 07:45 04/13/17 07:45 PT 19.2 SECONDS (9.4-12.5) H 04/11/17 08:00 INR 1.65 (0.93-1.08) H 04/11/17 08:00 - Constitutional Appears: Well, Non-toxic - Head Exam Head Exam: ATRAUMATIC, NORMOCEPHALIC - Eye Exam Eye Exam: Conjunctival injection, Scleral icterus - ENT Exam ENT Exam: Mucous Membranes Moist, Normal Oropharynx - Neck Exam Neck Exam: Normal Inspection - Respiratory Exam Respiratory Exam: NORMAL BREATHING PATTERN. absent: Accessory Muscle Use - GI/Abdominal Exam GI & Abdominal Exam: Soft, Normal Bowel Sounds. absent: Distended, Rebound Additional comments: Hepatosplenomegaly - Extremities Exam Extremities Exam: Normal Inspection Additional comments: bony hose on bilateral lower extremity; right wrist wrapped - Back Exam Back Exam: NORMAL INSPECTION. absent: CVA tenderness (L), CVA tenderness (R) - Neurological Exam Neurological Exam: Alert, Awake, CN II-XII Intact, Oriented x3 - Psychiatric Exam Psychiatric exam: Normal Affect, Normal Mood - Skin Additional comments: jaundiced Assessment and Plan - Assessment and Plan (Free Text) Assessment: 51 year old male alcoholic with a past medical history of atrial fibrillation, alcoholic hepatitis with thrombocytopenia who has a remarkably elevated bilirubin and an abdominal US that showed possible tumefactive sludge versus neoplasm within gallbladder and a thickened gallbladder wall. Surgery was consulted in light of these findings. Plan: - No surgical intervention planned at this time as patient is a poor surgical candidate - Patient's bilirubin is trending down - Continue with medical management. - Thank you for allowing us to participate in the care of this patient Jose Benito DO, PGY-1
[2017-04-13] MEDS: Potassium Chloride 10 mEq ER Tab PO SCH (18:24)
[2017-04-13] MEDS: Digoxin 250 mcg (0.25 mg) Tab PO SCH (18:24)
[2017-04-13 18:31] VITALS: PULSE 90
[2017-04-13] MEDS: Alum-Mag Hydrox-Simethicone Susp (30 mL) PO PRN (22:38)
[2017-04-14] MEDS: Levothyroxine 25 MCG TAB PO SCH (06:49)
[2017-04-14] MEDS: Multivitamin With Minerals Tab PO SCH (09:33)
[2017-04-14] MEDS: Magnesium Oxide 400 mg Tab UD PO SCH ×2 (09:35→16:23)
[2017-04-14] MEDS: oxyCODONE 5 mg Immediate Release Tab PO PRN ×2 (09:35→16:24)
[2017-04-14] MEDS: Potassium Chloride 10 mEq ER Tab PO SCH ×2 (09:35→16:22)
[2017-04-14] MEDS: Hydrocerin(120 gm) TOP SCH ×3 (09:37→18:28)
--- NOTE | 2017-04-14 11:44 | PCM.PYCHPN ---
Psychiatric Progress Note - Psychiatric Progress Note Patient seen today, length of contact: 25 min Patient Chief Complaint: "I am ready to go" Problems Identified/Issues Discussed: Patient is a 51 year old white male who was first admitted to the hospital on March 29 2017, presenting in the ER with back pain related to a fall in the shower. He was found to be in atrial fibrillation with rapid ventricular response. He was admitted to the telemetry unit and subsequently went into alcohol withdrawal. He was followed by psychiatry due to concerns regarding his severe alcoholism and living alone, indicated that he was depressed and expressed suicidal ideation. He consented to be voluntarily admitted to the inpatient psychiatric unit with the plan being that he will be referred for longer term alcohol treatment on discharge. Patient continues jaundiced, ADL's fair, was seen today in treatment team. Medical team came to team, explained to patient the need for a PMD, route sales person , and liver specialist. Patient has had multiple hospitalizations without medical followup, and the need for this was clearly explained. Patient was informed also of the need to abstain from alcohol and the effect of not abstaining from alcohol on his liver. Discharge is set for tomorrow, SW is finalizing referrals, he will be staying with his cousin and his and attend rehab. Patient denies being suicidal or homicidal, appears in no imminent danger of hurting himself or others. He is somewhat dependent and seems to need family guidance for follow through. Call to cousin Val [phone] to discuss discharge plan and options for rehab, she will pick him up tomorrow. Medical Problems: 51 year old male with a past medical history of dilated cardiomyopathy s/p single chamber ventricular pacemaker placement, chronic atrial fibrillation, alcohol abuse w/ severe withdrawals, alcoholic hepatitis thrombocytopenia, peptic ulcer disease and depression Diagnostic Results: Laboratory Results - last 24 hr 04/08/17 04/10/17 04/10/17 19:00 09:00 09:00 WBC 5.1 RBC 2.99 L Hgb 10.3 L Hct 31.6 L MCV 105.7 H MCH 34.4 MCHC 32.6 RDW 15.1 H Plt Count 186 MPV 11.3 H PT 18.0 H INR 1.55 H Sodium Potassium Chloride Carbon Dioxide Anion Gap BUN Creatinine Est GFR ( Amer) Est GFR (Non-Af Amer) Random Glucose Hemoglobin A1c 3.7 L Calcium Total Bilirubin AST ALT Alkaline Phosphatase Total Protein Albumin Globulin Albumin/Globulin Ratio 04/10/17 09:00 WBC RBC Hgb Hct MCV MCH MCHC RDW Plt Count MPV PT INR Sodium 133 Potassium 4.1 Chloride 102 Carbon Dioxide 24 Anion Gap 12 BUN 11 Creatinine 0.6 L Est GFR ( Amer) > 60 Est GFR (Non-Af Amer) > 60 Random Glucose 118 H Hemoglobin A1c Calcium 9.1 Total Bilirubin 20.6 H* AST 204 H ALT 101 H Alkaline Phosphatase 162 H Total Protein 7.6 Albumin 3.1 Globulin 4.5 Albumin/Globulin Ratio 0.7 L Temp Pulse Resp BP Pulse Ox 98.5 F 65 18 89/57 L 100 04/10/17 07:09 04/10/17 07:09 04/10/17 07:09 04/10/17 07:09 04/10/17 07:09 Abnormal Lab Results 04/10/17 04/11/17 04/11/17 09:00 08:00 08:00 PT 19.2 H INR 1.65 H Sodium 132 Potassium 4.1 Chloride 102 Carbon Dioxide 22 Anion Gap 12 BUN 12 Creatinine 0.5 L Est GFR ( Amer) > 60 Est GFR (Non-Af Amer) > 60 Random Glucose 86 Calcium 8.5 Total Bilirubin 17.1 H AST 168 H ALT 89 H Alkaline Phosphatase 144 H Total Protein 6.4 Albumin 2.6 L Globulin 3.9 Albumin/Globulin Ratio 0.7 L Hepatitis A IgM Ab Negative Hep Bs Antigen Negative Hep B Core IgM Ab Negative Hepatitis C Antibody Negative Temp Pulse Resp BP Pulse Ox 99.1 F 80 20 97/67 L 100 04/11/17 07:24 04/11/17 11:56 04/11/17 07:24 04/11/17 11:56 04/10/17 07:09 Temp Pulse Resp BP Pulse Ox 97.8 F 92 H 20 126/85 100 04/12/17 07:30 04/12/17 17:52 04/12/17 07:30 04/12/17 17:52 04/10/17 07:09 Laboratory Results - last 24 hr 04/13/17 04/13/17 07:45 07:45 WBC 8.4 D RBC 2.94 L Hgb 10.2 L Hct 31.1 L MCV 105.8 H MCH 34.7 MCHC 32.8 RDW 14.6 H Plt Count 224 MPV 10.9 Sodium 133 Potassium 4.6 Chloride 102 Carbon Dioxide 24 Anion Gap 11 BUN 14 Creatinine 0.6 L Est GFR ( Amer) > 60 Est GFR (Non-Af Amer) > 60 Random Glucose 84 Calcium 9.4 Total Bilirubin 12.8 H Direct Bilirubin 10.3 H AST 153 H ALT 93 H Alkaline Phosphatase 157 H Total Protein 7.2 Albumin 3.0 Globulin 4.2 Albumin/Globulin Ratio 0.7 L Temp Pulse Resp BP Pulse Ox 97.5 F L 81 20 115/85 100 04/13/17 07:38 04/13/17 09:31 04/13/17 07:38 04/13/17 09:31 04/10/17 07:09 Temp Pulse Resp BP Pulse Ox 97.5 F L 71 20 101/68 100 04/13/17 07:38 04/14/17 09:36 04/13/17 07:38 04/14/17 09:36 04/10/17 07:09 Medication Change: No Medical Record Reviewed: Yes Consults ordered or reviewed: Consult per Dr Ndiaye, thank you F/U per Dr Navarro noted F/U per Dr Jamil noted Consult per Dr Gamez reviewed, thank you Mental Status Examination - Cognitive Function Orientation: Person, Place, Situation, Time Attention: WNL Concentration: Poor Association: Loose - Mood Mood: Depressed ("okay") - Affect Affect: Constricted, Blunted - Speech Speech: Appropriate - Formal Thought Process Formal Thought Process: Hallucinations ("shadows", patient doesn't appear to be responding to internal stimuli), Circumstantial Goal/Treatment Plan - Goal/Treatment Plan Progress Toward Problem(s) and Goals/Treatment Plan: Treatment plan: Milieu/structure/supportive therapy Medical consult appreciated, see medical team note for more detailed info SW consultation for discharge plan and social issues Med management Family involvement Follow up on labs Will monitor closely evaluation for d/c planning Pt was educated about risk/benefits and alternatives of medications, coping strategies (safety plan, suicide prevention), relapse prevention, importance of follow up with psychiatrist and therapist, stay away from drugs/alcohol/smoking
--- NOTE | 2017-04-14 13:10 | CP.PCM.PN ---
Subjective - Date & Time of Evaluation Date of Evaluation: 04/14/17 Time of Evaluation: 08:00 - Subjective Subjective: General Surgery Progress Note for Dr. Ma Patient seen and examined at bedside. Patient denies any abdominal pain, nausea , vomiting, early satiety. Nurse reports no events overnight. Objective - Vital Signs/Intake and Output Vital Signs (last 24 hours): Temp Pulse Resp BP Pulse Ox 97.5 F L 71 20 101/68 100 04/13/17 07:38 04/14/17 09:36 04/13/17 07:38 04/14/17 09:36 04/10/17 07:09 - Medications Medications: Current Medications Acetaminophen (Tylenol 325mg Tab) 650 mg PO Q4 PRN PRN Reason: Pain, Mild (1-3) Last Admin: 04/13/17 09:30 Dose: 650 mg Acetaminophen (Tylenol 325mg Tab) 650 mg PO Q6 PRN PRN Reason: Pain, moderate (4-7) Al Hydrox/Mg Hydrox/Simethicone (Maalox Plus 30 Ml) 30 ml PO DAILY PRN PRN Reason: Upset Stomach Last Admin: 04/13/17 22:38 Dose: 30 ml Atenolol (Tenormin) 25 mg PO DAILY [facility] Last Admin: 04/14/17 09:34 Dose: 25 mg Digoxin (Lanoxin) 0.25 mg PO 1800 [facility] Last Admin: 04/13/17 18:24 Dose: 0.25 mg Famotidine (Pepcid) 20 mg PO DAILY [facility] Last Admin: 04/14/17 09:34 Dose: 20 mg Folic Acid (Folic Acid) 1 mg PO DAILY [facility] Last Admin: 04/14/17 09:33 Dose: 1 mg Furosemide (Lasix) 20 mg PO BID [facility] Last Admin: 04/14/17 09:32 Dose: 20 mg Hydrocortisone (Cortizone 1% Cream) 1 gm TOP BID PRN PRN Reason: Itching / Pruritus Last Admin: 04/08/17 17:03 Dose: 1 cer Levothyroxine Sodium (Synthroid) 25 mcg PO 0600 [facility] Last Admin: 04/14/17 06:49 Dose: 25 mcg Lorazepam (Ativan) 2 mg PO Q6 PRN; Protocol PRN Reason: alcohol withdrawal Last Admin: 04/11/17 22:54 Dose: 2 mg Magnesium Hydroxide (Milk Of Magnesia) 30 ml PO DAILY PRN PRN Reason: Constipation Magnesium Oxide (Mag-Ox) 400 mg PO BID [facility] Last Admin: 04/14/17 09:35 Dose: 400 mg Midodrine (Proamatine) 10 mg PO TID [facility] Last Admin: 04/14/17 09:35 Dose: 10 mg Multi-Ingredient Cream (Hydrocerin Cream) 1 ea TOP TID [facility] Last Admin: 04/14/17 09:37 Dose: 1 cre Multi-Ingredient Ointment (Prep-Hem) 2 ea TOP Q6H PRN PRN Reason: Itching / Pruritus Last Admin: 04/11/17 14:56 Dose: 1 applic Multivitamins/Minerals (Therapeutic-M Tab) 1 tab PO 0800 [facility] Last Admin: 04/14/17 09:33 Dose: 1 tab Ondansetron HCl (Zofran Tab) 4 mg PO Q8H PRN PRN Reason: Nausea/Vomiting Oxycodone HCl (Oxycodone Immediate Release Tab) 5 mg PO Q6H PRN PRN Reason: Pain, severe (8-10) Last Admin: 04/14/17 09:35 Dose: 5 mg Potassium Chloride (Klor-Con 10) 10 meq PO BRKDIN [facility] Last Admin: 04/14/17 09:35 Dose: 10 meq Prednisolone (Prednisolone Oral Soln) 40 mg PO DAILY [facility] Last Admin: 04/13/17 13:42 Dose: 40 mg Quetiapine Fumarate (Seroquel) 25 mg PO HS PRN; Protocol PRN Reason: Insomnia Last Admin: 04/13/17 21:40 Dose: 25 mg Thiamine HCl (Vitamin B1 Tab) 100 mg PO DAILY [facility] Last Admin: 04/14/17 09:36 Dose: 100 mg Verapamil HCl (Calan Tab) 80 mg PO TID [facility] Last Admin: 04/14/17 09:36 Dose: 80 mg Ziprasidone (Geodon Inj) 10 mg IM Q12 PRN; Protocol PRN Reason: severe agitation - Labs Labs: 04/13/17 07:45 04/13/17 07:45 PT 19.2 SECONDS (9.4-12.5) H 04/11/17 08:00 INR 1.65 (0.93-1.08) H 04/11/17 08:00 - Constitutional Appears: Non-toxic - Head Exam Head Exam: ATRAUMATIC, NORMOCEPHALIC - Eye Exam Eye Exam: EOMI, Scleral icterus - ENT Exam ENT Exam: Mucous Membranes Moist - Neck Exam Neck Exam: Normal Inspection - Respiratory Exam Respiratory Exam: NORMAL BREATHING PATTERN. absent: Accessory Muscle Use - GI/Abdominal Exam GI & Abdominal Exam: Soft, Normal Bowel Sounds. absent: Organomegaly, Rebound - Extremities Exam Additional comments: 1/4 lower extremity; patient wearing bony hose - Neurological Exam Neurological Exam: Alert, Awake, CN II-XII Intact, Oriented x3 - Skin Skin Exam: Dry, Intact, Normal Color, Warm Additional comments: Jaundiced Assessment and Plan - Assessment and Plan (Free Text) Assessment: 51 year old male alcoholic with a past medical history of atrial fibrillation, alcoholic hepatitis with thrombocytopenia who has a remarkably elevated bilirubin and an abdominal US that showed possible tumefactive sludge versus neoplasm within gallbladder and a thickened gallbladder wall. Surgery was consulted in light of these findings. Plan: - CT scan of the abdomen and pelvis shows no gall bladder neoplasm - Patient does not complain of RUQ pain, nausea, vomiting or fever - Patient is Child Class B with 30% mortality - No surgical intervention planned at this time; please recall as needed - As always, thank you for allowing us to participate in the care of this patient. Case discussed with attending, Dr. Anil Benito DO, PGY-1
[2017-04-14] MEDS: PrednisoLONE 15 mg/5 ml Oral Syrup (240 ml) PO SCH (14:00)
--- NOTE | 2017-04-14 14:11 | CON ---
DATE: 04/14/2017 ORTHOPEDIC CONSULTATION LOCATION: The patient is in room number 514, bed 2. HISTORY OF PRESENT ILLNESS: A 51-year-old male fell on the hospital floor 2days ago the hospital, he slipped and fell in his shower. Right wrist x-ray shows nondisplaced impacted fracture distal right radius in good position, with mild comminution. This had happened about a week ago. It is swollen, but there is no displacement of the fracture fragments, carpal bulge normal. He had a tight Elijah bandage around, so I took that off and put him in a wrist splint with Velcro volar wrist splint to help it maintain it in good position,will wait for 3to 4 days for the swelling to go down then put a get the swelling down and then put a cast on.. I will reevaluate him next week. Until the swelling goes down, he may need a short-arm cast or continue with Velcro splint. FINAL DIAGNOSIS: Minimally displaced fracture, right distal radius, in good position. José Allan DO JYOTI
--- NOTE | 2017-04-14 16:26 | CP.PCM.PN ---
<Tu Navarrojosiah - Last Filed: 04/14/17 16:22> Subjective - Date & Time of Evaluation Date of Evaluation: 04/14/17 Time of Evaluation: 11:30 - Subjective Subjective: Luis Navarro DO PGY1 - Internal Medicine Progress Note Patient seen and examined at bedside in the psych andres. Patient reports that he is to be discharged tomorrow. Again had lengthy discussion with patient regarding prognosis and treatment, and the importance of abstinence and pursuing rehabilitation. Patient still complaining of pain in his right wrist; was seen by ortho and placed in a soft brace. Patient reports small improvement in the swelling in his legs. He denies any chest pain, palpitations, abdominal pain, nausea, vomiting, diarrhea, constipation, fever, or chills. Objective - Vital Signs/Intake and Output Vital Signs (last 24 hours): Temp Pulse Resp BP Pulse Ox 97.5 F L 71 20 101/68 100 04/13/17 07:38 04/14/17 13:57 04/13/17 07:38 04/14/17 13:57 04/10/17 07:09 - Medications Medications: Current Medications Acetaminophen (Tylenol 325mg Tab) 650 mg PO Q4 PRN PRN Reason: Pain, Mild (1-3) Last Admin: 04/13/17 09:30 Dose: 650 mg Acetaminophen (Tylenol 325mg Tab) 650 mg PO Q6 PRN PRN Reason: Pain, moderate (4-7) Al Hydrox/Mg Hydrox/Simethicone (Maalox Plus 30 Ml) 30 ml PO DAILY PRN PRN Reason: Upset Stomach Last Admin: 04/13/17 22:38 Dose: 30 ml Atenolol (Tenormin) 25 mg PO DAILY [facility] Last Admin: 04/14/17 09:34 Dose: 25 mg Digoxin (Lanoxin) 0.25 mg PO 1800 [facility] Last Admin: 04/13/17 18:24 Dose: 0.25 mg Famotidine (Pepcid) 20 mg PO DAILY [facility] Last Admin: 04/14/17 09:34 Dose: 20 mg Folic Acid (Folic Acid) 1 mg PO DAILY [facility] Last Admin: 04/14/17 09:33 Dose: 1 mg Furosemide (Lasix) 20 mg PO BID [facility] Last Admin: 04/14/17 09:32 Dose: 20 mg Hydrocortisone (Cortizone 1% Cream) 1 gm TOP BID PRN PRN Reason: Itching / Pruritus Last Admin: 04/08/17 17:03 Dose: 1 cer Levothyroxine Sodium (Synthroid) 25 mcg PO 0600 [facility] Last Admin: 04/14/17 06:49 Dose: 25 mcg Lorazepam (Ativan) 2 mg PO Q6 PRN; Protocol PRN Reason: alcohol withdrawal Last Admin: 04/11/17 22:54 Dose: 2 mg Magnesium Hydroxide (Milk Of Magnesia) 30 ml PO DAILY PRN PRN Reason: Constipation Magnesium Oxide (Mag-Ox) 400 mg PO BID [facility] Last Admin: 04/14/17 09:35 Dose: 400 mg Midodrine (Proamatine) 10 mg PO TID [facility] Last Admin: 04/14/17 13:59 Dose: 10 mg Multi-Ingredient Cream (Hydrocerin Cream) 1 ea TOP TID [facility] Last Admin: 04/14/17 13:00 Dose: 1 cre Multi-Ingredient Ointment (Prep-Hem) 2 ea TOP Q6H PRN PRN Reason: Itching / Pruritus Last Admin: 04/11/17 14:56 Dose: 1 applic Multivitamins/Minerals (Therapeutic-M Tab) 1 tab PO 0800 [facility] Last Admin: 04/14/17 09:33 Dose: 1 tab Ondansetron HCl (Zofran Tab) 4 mg PO Q8H PRN PRN Reason: Nausea/Vomiting Oxycodone HCl (Oxycodone Immediate Release Tab) 5 mg PO Q6H PRN PRN Reason: Pain, severe (8-10) Last Admin: 04/14/17 09:35 Dose: 5 mg Potassium Chloride (Klor-Con 10) 10 meq PO BRKDIN [facility] Last Admin: 04/14/17 09:35 Dose: 10 meq Prednisolone (Prednisolone Oral Soln) 40 mg PO DAILY [facility] Last Admin: 04/14/17 14:00 Dose: 40 mg Quetiapine Fumarate (Seroquel) 25 mg PO HS PRN; Protocol PRN Reason: Insomnia Last Admin: 04/13/17 21:40 Dose: 25 mg Thiamine HCl (Vitamin B1 Tab) 100 mg PO DAILY [facility] Last Admin: 04/14/17 09:36 Dose: 100 mg Verapamil HCl (Calan Tab) 80 mg PO TID [facility] Last Admin: 04/14/17 13:57 Dose: 80 mg Ziprasidone (Geodon Inj) 10 mg IM Q12 PRN; Protocol PRN Reason: severe agitation - Labs Labs: 04/13/17 07:45 04/13/17 07:45 PT 19.2 SECONDS (9.4-12.5) H 04/11/17 08:00 INR 1.65 (0.93-1.08) H 04/11/17 08:00 - Constitutional Appears: Non-toxic, No Acute Distress - Head Exam Head Exam: ATRAUMATIC, NORMOCEPHALIC - Eye Exam Eye Exam: EOMI, PERRL, Scleral icterus (improving) - ENT Exam ENT Exam: Mucous Membranes Moist - Neck Exam Neck Exam: Normal Inspection - Respiratory Exam Respiratory Exam: Clear to Ausculation Bilateral, NORMAL BREATHING PATTERN - Cardiovascular Exam Cardiovascular Exam: Irregular Rhythm, +S1, +S2. absent: Tachycardia - GI/Abdominal Exam GI & Abdominal Exam: Soft, Normal Bowel Sounds. absent: Tenderness - Extremities Exam Extremities Exam: Pedal Edema (3+ to upper third of abdi). absent: Calf Tenderness - Neurological Exam Neurological Exam: Alert, Awake, Oriented x3 Neuro motor strength exam: Left Upper Extremity: 5, Right Upper Extremity: 5, Left Lower Extremity: 5, Right Lower Extremity: 5 - Psychiatric Exam Psychiatric exam: Normal Affect, Normal Mood - Skin Skin Exam: Dry, Intact Additional comments: Jaundice, decreasing Assessment and Plan - Assessment and Plan (Free Text) Assessment: 51 year old male with a past medical history of dilated cardiomyopathy s/p single chamber ventricular pacemaker placement, chronic atrial fibrillation, alcohol abuse w/ severe withdrawals, alcoholic hepatitis thrombocytopenia, peptic ulcer disease and depression who presented to [facility] psych unit from med- surg unit for continued surveillance and treatment. Medicine team following up on jaundice and alcoholic hepatitis Plan: 1. Alcohol abuse and treatment - continue psych treatment - Stressed consequences of further alcohol consumption, patient verbalizes understanding 2. Jaundice - Patient likely has alcoholic hepatitis - Bilirubin remains elevated, trending down; INR not drawn - Maddrey's DF >32, indicating treatment with steroids - Continue Prednisolone 40mg QD (d4 - started on 04/11/17) - Patient will require follow up with PMD or buckle sewer upon discharge - GI on consult; appreciate recs 3. Atrial fibrillation - rate controlled - Continue atenolol, digoxin, verapmil - Continue midodrine, as below 4. Peripheral edema - Patient complaining of uncomfortable swelling in both legs - Will start Lasix and potassium supplement today; monitor response - Continue AE hose - Patient BP slightly improved today 5. R wrist trauma s/p fall - Patient fell on 04/12; no head trauma; no s/s seizures, arrhythmia, CVA - R wrist XR done; acute nondisplaced communited mildly impacted fracture in distal metaphysis of radius without significant angulation, no dislocation - Patient was seen by ortho, and placed in a soft wrist brace - Ortho ([facility]) consulted, appreciate recs 6. Dilated Cardiomyopathy - Continue with cardiac medication regimen as listed above 7. Hypertension - BP now stable on current regimen - Continue Midodrine 10mg PO TID; will monitor response - Continue Lasix 20 PO BID 8. Depression - Management per psych - Cont Seroquel 9. Peptic ulcer disease - Pepcid 20 mg PO daily 10. Hypothyroidism - cont synthroid PPX - pepcid - patient is ambulating so no need for dvt ppx <Elsie Garcia - Last Filed: 04/15/17 11:51> Objective - Vital Signs/Intake and Output Vital Signs (last 24 hours): Temp Pulse Resp BP Pulse Ox 98.2 F 82 82 H 113/65 100 04/15/17 06:59 04/15/17 08:53 04/15/17 06:59 04/15/17 08:53 04/10/17 07:09 - Medications Medications: Current Medications Acetaminophen (Tylenol 325mg Tab) 650 mg PO Q4 PRN PRN Reason: Pain, Mild (1-3) Last Admin: 04/13/17 09:30 Dose: 650 mg Acetaminophen (Tylenol 325mg Tab) 650 mg PO Q6 PRN PRN Reason: Pain, moderate (4-7) Al Hydrox/Mg Hydrox/Simethicone (Maalox Plus 30 Ml) 30 ml PO DAILY PRN PRN Reason: Upset Stomach Last Admin: 04/14/17 22:50 Dose: 30 ml Atenolol (Tenormin) 25 mg PO DAILY [facility] Last Admin: 04/15/17 08:53 Dose: 25 mg Digoxin (Lanoxin) 0.25 mg PO 1800 [facility] Last Admin: 04/14/17 18:06 Dose: 0.25 mg Famotidine (Pepcid) 20 mg PO DAILY [facility] Last Admin: 04/15/17 08:54 Dose: 20 mg Folic Acid (Folic Acid) 1 mg PO DAILY [facility] Last Admin: 04/15/17 08:52 Dose: 1 mg Furosemide (Lasix) 20 mg PO BID [facility] Last Admin: 04/15/17 08:53 Dose: 20 mg Hydrocortisone (Cortizone 1% Cream) 1 gm TOP BID PRN PRN Reason: Itching / Pruritus Last Admin: 04/08/17 17:03 Dose: 1 cer Levothyroxine Sodium (Synthroid) 25 mcg PO 0600 [facility] Last Admin: 04/15/17 10:08 Dose: 25 mcg Lorazepam (Ativan) 2 mg PO Q6 PRN; Protocol PRN Reason: alcohol withdrawal Last Admin: 04/15/17 10:14 Dose: 2 mg Magnesium Hydroxide (Milk Of Magnesia) 30 ml PO DAILY PRN PRN Reason: Constipation Magnesium Oxide (Mag-Ox) 400 mg PO BID [facility] Last Admin: 04/15/17 08:52 Dose: 400 mg Midodrine (Proamatine) 10 mg PO TID [facility] Last Admin: 04/15/17 08:54 Dose: 10 mg Multi-Ingredient Cream (Hydrocerin Cream) 1 ea TOP TID [facility] Last Admin: 04/15/17 08:57 Dose: 1 cre Multi-Ingredient Ointment (Prep-Hem) 2 ea TOP Q6H PRN PRN Reason: Itching / Pruritus Last Admin: 04/11/17 14:56 Dose: 1 applic Multivitamins/Minerals (Therapeutic-M Tab) 1 tab PO 0800 [facility] Last Admin: 04/15/17 08:52 Dose: 1 tab Ondansetron HCl (Zofran Tab) 4 mg PO Q8H PRN PRN Reason: Nausea/Vomiting Oxycodone HCl (Oxycodone Immediate Release Tab) 5 mg PO Q6H PRN PRN Reason: Pain, severe (8-10) Last Admin: 04/14/17 16:24 Dose: 5 mg Potassium Chloride (Klor-Con 10) 10 meq PO BRKDIN [facility] Last Admin: 04/15/17 08:53 Dose: 10 meq Prednisolone (Prednisolone Oral Soln) 40 mg PO DAILY [facility] Last Admin: 04/15/17 10:03 Dose: 40 mg Quetiapine Fumarate (Seroquel) 25 mg PO HS PRN; Protocol PRN Reason: Insomnia Last Admin: 04/14/17 22:50 Dose: 25 mg Thiamine HCl (Vitamin B1 Tab) 100 mg PO DAILY [facility] Last Admin: 04/15/17 08:52 Dose: 100 mg Verapamil HCl (Calan Tab) 80 mg PO TID [facility] Last Admin: 04/15/17 08:52 Dose: 80 mg Ziprasidone (Geodon Inj) 10 mg IM Q12 PRN; Protocol PRN Reason: severe agitation - Labs Labs: 04/13/17 07:45 04/13/17 07:45 PT 19.2 SECONDS (9.4-12.5) H 04/11/17 08:00 INR 1.65 (0.93-1.08) H 04/11/17 08:00 Attending/Attestation - Attestation I have personally seen and examined this patient.: Yes I have fully participated in the care of the patient.: Yes I have reviewed all pertinent clinical information, including history, physical exam and plan: Yes Notes (Text): 04/15/17 11:48 Attending note; Patient seen and examined with resident in the psychiatric floor. had a long meeting with Patient/psychiatric nurse practitioner/licensed social worker/ nurse. Patient states he understood the need for going to alcohol rehabilitation. patient also agreed to follow up with PMD as outpatient. severe alcoholic hepatitis and treatment options explained. Follow-up plan explained in detail. The patient apparently had a fall yesterday. Wrist x-ray showed acute nondisplaced distal radius fracture. Orthopedic evaluation With Dr. Carver appreciated. Alcoholic hepatitis; currently on prednisolone. Improving LFTs. Patient is currently asymptomatic. Tolerating diet. ambulating fine without difficulty. Patient with a history of opiate abuse in the past. Asks for pain medication. patient will be referred to [facility] hepatology clinic. Complete alcohol cessation is strongly advised. Patient needs to follow up with PMD/cardiology/hepatology. time spent over 35 minutes.
--- NOTE | 2017-04-14 17:22 | PCM.BM ---
<RonniNirmala Y - Last Filed: 04/14/17 17:22> Treatment Plan Problems - Problems identified on initial assessmt Depression Date Initiated: 04/06/17 Time Initiated: 22:45 Status: Active Treatment assets and liabiliti Patient Assests: cooperative, self-reliant, ADL independent, negotiates basic needs Patient Liabilities: live alone, financial problems, poor support system, relationship conflicts, substance abuse, medical problems, auditory impairment, visual impairment - Milieu Protocol Maintain good personal hygiene: daily Encourage regular showers, daily Remind patient to perform daily oral care, daily Assist patient to perform ADL's Conduct patient checks and document Observation sheet: Q15 minutes Maintain personal safety: every shift Educate patient to report safety concerns to staff, every shift Monitor environment for contraband/sharps Medication safety: Monitor for expected outcome, potential side effects: every shift, Assess barriers to learning: every shift, Assess readiness for medication education: every shift Milieu Narrative: Treatment plan: Milieu/structure/supportive therapy Medical consult appreciated, see medical team note for more detailed info SW consultation for discharge plan and social issues Med management Family involvement Follow up on labs Will monitor closely SW evaluation for d/c planning Pt was educated about risk/benefits and alternatives of medications, coping strategies (safety plan, suicide prevention), relapse prevention, importance of follow up with psychiatrist and therapist, stay away from drugs/alcohol/smoking Family Contact Family involvement: Family/SO is involved Family contact: Patient agrees to contact Family contact name: Val Ybarra(cousin) - Goals for Treatment Patient goals for treatment: As per Soraya Rosas APN, pt wants to attend inpatient rehab. Discharge/Continuing Care - Education Needs Education Needs: Patient Medication, Patient Diagnosis/Disease Process, Patient Coping Skills, Patient Community resources - Discharge Discharge Criteria: Tolerates medication w/o severe side effects, Normal sleep pattern - Treatment Team Participation Patient/Family/SO Statement: Treatment plan: Milieu/structure/supportive therapy Medical consult appreciated, see medical team note for more detailed info SW consultation for discharge plan and social issues Med management Family involvement Follow up on labs Will monitor closely SW evaluation for d/c planning Pt was educated about risk/benefits and alternatives of medications, coping strategies (safety plan, suicide prevention), relapse prevention, importance of follow up with psychiatrist and therapist, stay away from drugs/alcohol/smoking Treatment Plan Review - Problem Depression Time Initiated: 22:45 <Alison Russo - Last Filed: 04/14/17 21:00> - Diagnosis (1) Major depressive disorder, recurrent severe without psychotic features Status: Acute Interventions: Psychoeducation Psychopharmacology/adjustment of medications as needed/ monitoring possible side effects Evaluate pt on daily basis Compliance with medications and follow up appointments Suicide and homicide risk assessment and prevention Relapse prevention Reduction of symptoms Improve functional status Family involvement As outpatient: cognitive behavioral therapy 04/14/17 20:58 (2) Alcohol dependence Status: Acute Interventions: Monitoring withdrawal symptoms Medical detoxification Pharmacotherapy for alcohol/benzos/opioid dependence Maintaining sobriety Relapse prevention Possible rehabilitation Motivational interviewing 12-step programs: AA meetings 04/14/17 21:00 (3) Atrial fibrillation Status: Acute Interventions: Pt will be seen by medical team as needed Medications will be confirmed and resumed Additional consultation by specialists as needed Lab work as needed (CBC, CMP, TSH, free T4, UA, Urine test for females as needed) CXR as needed EKG Physical therapy valuation as needed 04/14/17 20:59
[2017-04-14] MEDS: Digoxin 250 mcg (0.25 mg) Tab PO SCH (18:06)
[2017-04-14] MEDS: Alum-Mag Hydrox-Simethicone Susp (30 mL) PO PRN (22:50)
[2017-04-15 07:00] VITALS: BP 113/65; TEMP 98.2
[2017-04-15] MEDS: Multivitamin With Minerals Tab PO SCH (08:52)
[2017-04-15] MEDS: Magnesium Oxide 400 mg Tab UD PO SCH (08:52)
[2017-04-15] MEDS: Potassium Chloride 10 mEq ER Tab PO SCH (08:53)
[2017-04-15 08:54] VITALS: PULSE 82
[2017-04-15] MEDS: Hydrocerin(120 gm) TOP SCH (08:57)
[2017-04-15] MEDS: PrednisoLONE 15 mg/5 ml Oral Syrup (240 ml) PO SCH (10:03)
[2017-04-15] MEDS: Levothyroxine 25 MCG TAB PO SCH (10:08)
--- NOTE | 2017-04-15 10:31 | PCM.PYCHDC ---
Mental Status Examination - Mental Status Examination Orientation: Person, Place, Situation Memory: Intact Mood: Depressed Affect: Broad Speech: Appropriate Attention: WNL Concentration: WNL Association: WNL Fund of Knowledge: WNL Formal Thought Process: No Impairment Description of patient's judgement and insight: Fair insight, Fair Judgment, much improved since admission Suicidal Ideation: No Current Homicidal Ideation?: No Discharge Summary - Discharge Note Reason for Hospitalization: Patient is a 51 year old white male who was first admitted to the hospital on March 29 2017, presenting in the ER with back pain related to a fall in the shower. He was found to be in atrial fibrillation with rapid ventricular response. He was admitted to the telemetry unit and subsequently went into alcohol withdrawal. He was followed by psychiatry due to concerns regarding his severe alcoholism and living alone, indicated that he was depressed and expressed suicidal ideation. He consented to be voluntarily admitted to the inpatient psychiatric unit with the plan being that he will be referred for longer term alcohol treatment on discharge. Laboratory Data: Laboratory Tests 04/07/17 04/07/17 04/07/17 07:30 07:30 07:30 WBC RBC Hgb Hct MCV MCH MCHC RDW Plt Count MPV Gran % Lymph % (Auto) [place] % (Auto) Eos % (Auto) Baso % (Auto) Gran # Lymph # [place] # Eos # Baso # PT INR Sodium Potassium Chloride Carbon Dioxide Anion Gap BUN Creatinine Est GFR ( Amer) Est GFR (Non-Af Amer) Random Glucose Fasting Glucose 94 Hemoglobin A1c Calcium Total Bilirubin Direct Bilirubin AST ALT Alkaline Phosphatase Total Protein Albumin Globulin Albumin/Globulin Ratio Triglycerides 174 H Cholesterol 106 L LDL Cholesterol Direct 65 HDL Cholesterol 9 L TSH 3rd Generation 5.56 H RPR Nonreactive Hepatitis A IgM Ab Hep Bs Antigen Hep B Core IgM Ab Hepatitis C Antibody 04/08/17 04/08/17 04/08/17 14:25 19:00 19:00 WBC RBC Hgb Hct MCV MCH MCHC RDW Plt Count MPV Gran % Lymph % (Auto) [place] % (Auto) Eos % (Auto) Baso % (Auto) Gran # Lymph # [place] # Eos # Baso # PT INR Sodium 129 L Potassium 4.2 Chloride 98 Carbon Dioxide 22 Anion Gap 14 BUN 14 Creatinine 0.6 L Est GFR ( Amer) > 60 Est GFR (Non-Af Amer) > 60 Random Glucose 88 Fasting Glucose Hemoglobin A1c 3.7 L Calcium 8.9 Total Bilirubin 20.2 H* Direct Bilirubin AST 213 H ALT 100 H Alkaline Phosphatase 165 H Total Protein 7.7 Albumin 3.2 Globulin 4.4 Albumin/Globulin Ratio 0.7 L Triglycerides 187 H Cholesterol 115 L LDL Cholesterol Direct 71 HDL Cholesterol 9 L TSH 3rd Generation RPR Hepatitis A IgM Ab Hep Bs Antigen Hep B Core IgM Ab Hepatitis C Antibody 04/09/17 04/09/17 04/09/17 09:50 09:50 09:50 WBC 4.9 D RBC 3.03 L Hgb 10.6 L Hct 32.0 L MCV 105.6 H MCH 35.0 MCHC 33.1 RDW 15.3 H Plt Count 160 MPV 11.3 H Gran % 75.3 H Lymph % (Auto) 10.3 L [place] % (Auto) 13.8 H Eos % (Auto) 0.4 L Baso % (Auto) 0.2 Gran # 3.72 Lymph # 0.5 L [place] # 0.7 H Eos # 0.0 Baso # 0.01 PT 17.5 H INR 1.51 H Sodium 135 Potassium 4.4 Chloride 102 Carbon Dioxide 23 Anion Gap 15 BUN 10 Creatinine 0.6 L Est GFR ( Amer) > 60 Est GFR (Non-Af Amer) > 60 Random Glucose 123 H Fasting Glucose Hemoglobin A1c Calcium 9.2 Total Bilirubin 20.1 H* Direct Bilirubin AST 206 H ALT 97 H Alkaline Phosphatase 163 H Total Protein 7.6 Albumin 3.1 Globulin 4.6 Albumin/Globulin Ratio 0.7 L Triglycerides Cholesterol LDL Cholesterol Direct HDL Cholesterol TSH 3rd Generation RPR Hepatitis A IgM Ab Hep Bs Antigen Hep B Core IgM Ab Hepatitis C Antibody 04/10/17 04/10/17 04/10/17 09:00 09:00 09:00 WBC 5.1 RBC 2.99 L Hgb 10.3 L Hct 31.6 L MCV 105.7 H MCH 34.4 MCHC 32.6 RDW 15.1 H Plt Count 186 MPV 11.3 H Gran % Lymph % (Auto) [place] % (Auto) Eos % (Auto) Baso % (Auto) Gran # Lymph # [place] # Eos # Baso # PT 18.0 H INR 1.55 H Sodium 133 Potassium 4.1 Chloride 102 Carbon Dioxide 24 Anion Gap 12 BUN 11 Creatinine 0.6 L Est GFR ( Amer) > 60 Est GFR (Non-Af Amer) > 60 Random Glucose 118 H Fasting Glucose Hemoglobin A1c Calcium 9.1 Total Bilirubin 20.6 H* Direct Bilirubin AST 204 H ALT 101 H Alkaline Phosphatase 162 H Total Protein 7.6 Albumin 3.1 Globulin 4.5 Albumin/Globulin Ratio 0.7 L Triglycerides Cholesterol LDL Cholesterol Direct HDL Cholesterol TSH 3rd Generation RPR Hepatitis A IgM Ab Hep Bs Antigen Hep B Core IgM Ab Hepatitis C Antibody 04/10/17 04/11/17 04/11/17 09:00 08:00 08:00 WBC RBC Hgb Hct MCV MCH MCHC RDW Plt Count MPV Gran % Lymph % (Auto) [place] % (Auto) Eos % (Auto) Baso % (Auto) Gran # Lymph # [place] # Eos # Baso # PT 19.2 H INR 1.65 H Sodium 132 Potassium 4.1 Chloride 102 Carbon Dioxide 22 Anion Gap 12 BUN 12 Creatinine 0.5 L Est GFR ( Amer) > 60 Est GFR (Non-Af Amer) > 60 Random Glucose 86 Fasting Glucose Hemoglobin A1c Calcium 8.5 Total Bilirubin 17.1 H Direct Bilirubin AST 168 H ALT 89 H Alkaline Phosphatase 144 H Total Protein 6.4 Albumin 2.6 L Globulin 3.9 Albumin/Globulin Ratio 0.7 L Triglycerides Cholesterol LDL Cholesterol Direct HDL Cholesterol TSH 3rd Generation RPR Hepatitis A IgM Ab Negative Hep Bs Antigen Negative Hep B Core IgM Ab Negative Hepatitis C Antibody Negative 04/13/17 04/13/17 07:45 07:45 WBC 8.4 D RBC 2.94 L Hgb 10.2 L Hct 31.1 L MCV 105.8 H MCH 34.7 MCHC 32.8 RDW 14.6 H Plt Count 224 MPV 10.9 Gran % Lymph % (Auto) [place] % (Auto) Eos % (Auto) Baso % (Auto) Gran # Lymph # [place] # Eos # Baso # PT INR Sodium 133 Potassium 4.6 Chloride 102 Carbon Dioxide 24 Anion Gap 11 BUN 14 Creatinine 0.6 L Est GFR ( Amer) > 60 Est GFR (Non-Af Amer) > 60 Random Glucose 84 Fasting Glucose Hemoglobin A1c Calcium 9.4 Total Bilirubin 12.8 H Direct Bilirubin 10.3 H AST 153 H ALT 93 H Alkaline Phosphatase 157 H Total Protein 7.2 Albumin 3.0 Globulin 4.2 Albumin/Globulin Ratio 0.7 L Triglycerides Cholesterol LDL Cholesterol Direct HDL Cholesterol TSH 3rd Generation RPR Hepatitis A IgM Ab Hep Bs Antigen Hep B Core IgM Ab Hepatitis C Antibody Consultations:: List each consultation separately and include: 1. Reason for request. 2. Findings. 3. Follow-up Consultations: Dr. Pacheco 04/07/17 Dr. Navarro 04/09, 04/10, 04/11, 04/12, 04/14 Dr. Allan 04/14/17 Summary of Hospital Course include:: 1. Description of specific treatment plan utilized for patients during their course of treatmen. 2. Summarize the time- course for resolution of acute symptoms and/or regressed behaviors. 3. Describe issues identified and worked on during hospitalization. 4. Describe medication utilized. 5. Describe medical problems identified and treated. 6. Reassessment of suicide risk Summary of Hospital Course: Per Alison Russo Patient is a 51 year old white male seen today in treatment team. He is jaundiced and ADL's are poor. 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 He is supported by money left to him by his father who 1 1/2 ears ago. His uncle is his POA and handles patient's finances. He has given permission for us to speak with his uncle. Prior to admission, patient states he was "drinking 10/10", beer only as other alcohol will trigger his atrial fibrillation. He is isolated in his apartment, and has little socialization except when he walks to the bar. He has been hospitalized here psychiatrically once before, but did not follow up with the medications prescribed for him which were gabapentin 300mg one po TID, Prozac 40mg one po AM, and Remeron 30mg one po HS. He has never had a suicide attempt. Of note, patient's plan for suicide at that time was to shoot himself. His uncle removed all the guns into a locked box which he keeps at his house so patient has no current access to guns. Medically he has a history of gastric bypass, was diagnosed with atrial fibrillation at age 15. He denies any history, and legally has had a DWI recently so he does not drive. Social and Developmental History: Patient grew up here in [place], was an only child. Mother 8 years ago from ovarian cancer, Father 1 1/2 years ago from liver cancer. He has a large extended family that he was very involved with growing up. He indicates his childhood was happy. He was very close to both parents and indicates he has "never gotten over" their loss especially his father. He did well in school and had many friends. 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 He got and had 2 children, girls who are now young adults in college. He does not see them but his father left money for their schooling also. His marriage ended acrimoniously over his drinking. He has attended AA in the past, is not buddhist. DISCHARGE NOTE BY DR. CHAN I interviewed patient at bedside to assess continued stability for discharge. Patient is alert and well-oriented to month, year and circumstances. Eye contact is good. Patient feels improved and denies any suicidal thoughts or thoughts to harm others. Affect is calm and appropriately reactive. Patient denies hallucinations and is not responding to internal stimuli. Thought process is clear and coherent. Patient reports hearing bad news about his liver yesterday. He indicated "some contracts intern" gave me news about liver transplant. I encourage patient to f/u with a second opinion if he has concerns about his medical diagnosis and recommended treatment as well as prognosis. Patient reports that he plans to attend rehab upon discharge. Wants to be sober to improve his medical prognosis however doesn 't appear entirely committed. Denies other concerns. Denies acute discomfort or pain except for chronic pain associated with sciatica. Tolerating prn psychiatric medications and denies any issues with them. Delusions and paranoia were not elicited on day of discharge. - Final Diagnosis (DSM 5) Condition upon Discharge: IMPROVED DSM 5: Major Depression, Recurrent, Severe, without psychotic features Alcohol Use Disorder, Severe, Chronic Disposition: AGAINST MEDICAL ADVICE Follow-up Treatment Plan: PER SOCIAL WORK ON DAY OF DISCHARGE: 04/15/17 09:23 - Social Work Progress Note by Maxim Choi Jr. herbarium worker received telephone call from Ping ([phone]) at [facility] informed staff writer that Patient was medically cleared and ready for admission. Ping noted that a shuttle would be scheduled to pick Patient up from the unit once a time o discharge was provided and Patient was stable to leave the facility. THIS INFORMATION WAS PROVIDED TO PATIENT HOWEVER PATIENT CHANGED HIS MIND AND REFUSED TO F/U ON THIS RECOMMENDATION. INDICATED THAT HE JUST WANTED TO GO HOME. URGED PATIENT TO STAY UNTIL MONDAY SO THAT OUTPATIENT REFERRALS COULD BE MADE HOWEVER HE PUT IN A 48 HOUR LETTER. PER SOCIAL WORK NOTE: 04/15/17 13:29 - Nursing Note by Rohith [facility] Num: [id number] : 1965 Patient Age: 51 Discharge Note: Patient was discharged today, Medications provided, including medication education provided. Patient was also provided with discharge instructions including follow-up instructions for medical and psychiatric issues. He was also educated on the importance of following up with his Primary care Physician for medical management. Patient was also educated and provided with information on suicide prevention and management. He verbalized understanding. Patient denied thoughts of suicide/ homicide upon discharge. He was educated on effects of alcohol abuse and encouraged to follow-up with at [facility] and [facility] . Patient was also provided with medical follow-up at [facility] interventional service. Patient was provided with his belongings. Patient was stable at time of discharge. Laboratory Results - last 24 hr 04/08/17 04/08/17 14:25 19:00 Sodium 129 L Potassium 4.2 Chloride 98 Carbon Dioxide 22 Anion Gap 14 BUN 14 Creatinine 0.6 L Est GFR ( Amer) > 60 Est GFR (Non-Af Amer) > 60 Random Glucose 88 Calcium 8.9 Total Bilirubin 20.2 H* AST 213 H ALT 100 H Alkaline Phosphatase 165 H Total Protein 7.7 Albumin 3.2 Globulin 4.4 Albumin/Globulin Ratio 0.7 L Triglycerides 187 H Cholesterol 115 L LDL Cholesterol Direct 71 HDL Cholesterol 9 L Prescriptions/Medication Reconciliation: Atenolol [Tenormin] 25 mg PO DAILY #30 tab Digoxin [Lanoxin] 0.125 mg PO DAILY #30 tab Famotidine [Pepcid] 20 mg PO DAILY #30 tab Folic Acid 1 mg PO DAILY #30 tab Furosemide [Lasix] 20 mg PO BID #60 tab Levothyroxine [Synthroid] 25 mcg PO 0600 #30 tab Magnesium Oxide [Mag-Ox] 400 mg PO BID #60 tab Midodrine [Proamatine] 10 mg PO TID #90 tab Multimineral/Multivitamin [Therapeutic-M Tab] 1 tab PO 0800 #30 tab Potassium Chloride [Klor-Con 10] 20 meq PO BRKDIN #[address] PrednisoLONE [PrednisoLONE Oral Soln] 40 mg PO DAILY 15 Days dose Thiamine [Vitamin B1 Tab] 100 mg PO DAILY #30 tab Verapamil [Calan Tab] 80 mg PO TID #90 tab - Smoking Cessation Smoking Cessation Medication prescribed: No Reason for not providing: Patient doesn't smoke tobacco - Antipsychotic Medications Pt discharged on 2 or more routine antipsychotic medications: No
--- NOTE | 2017-04-15 11:04 | CP.PCM.PN ---
<ZurdoKarson - Last Filed: 04/15/17 10:53> Subjective - Date & Time of Evaluation Date of Evaluation: 04/15/17 Time of Evaluation: 10:30 - Subjective Subjective: IM Progress Note for Hospitalist Service Patient seen and examined in Psych unit due to complaints of leg pain and insisting on speaking to the medical team regarding his liver. Despite repeated explanations over previous days, patient states no one is explaining anything to him. He is also complaining of leg pain. Re-explained to patient that he has significant damage to his liver from his constant alcohol use, and the full extent of damage won't be clear until degree of recovery is assessed after finishing his course of steroids and continuing to abstain from alcohol. Patient insists he is ready to quit for good, but as per Car Porter (Maxim) , patient is refusing to go to rehab until Monday as he worries about his liver and wants to wait until it can be rechecked. Explained to him that the rehab has a medical unit that can recheck his liver values, and there is no acute intervention that GI would perform between now and Monday, so he should go today while a bed is available. Patient stated then that he was amenable to rehab, but is refusing transport to rehab, insisting on going home first to pack his clothes. Reminded that his cousin, Val (cell [phone], home ) stated she was willing to pack his clothes and deliver them to the rehab, but he still insisted on going home and packing himself. Called his cousin Val to notify, who states that she is willing to take him to rehab, but also noted that this is part of the patient's pattern of behavior after discharge; he insists on going home first, then decides to sleep at home through the weekend, and then ultimately declines to go to rehab. On examination, his leg appears grossly unchanged from prior exams, no new or asymmetric swelling noted. Objective - Vital Signs/Intake and Output Vital Signs (last 24 hours): Temp Pulse Resp BP Pulse Ox 98.2 F 82 82 H 113/65 100 04/15/17 06:59 04/15/17 08:53 04/15/17 06:59 04/15/17 08:53 04/10/17 07:09 - Medications Medications: Current Medications Acetaminophen (Tylenol 325mg Tab) 650 mg PO Q4 PRN PRN Reason: Pain, Mild (1-3) Last Admin: 04/13/17 09:30 Dose: 650 mg Acetaminophen (Tylenol 325mg Tab) 650 mg PO Q6 PRN PRN Reason: Pain, moderate (4-7) Al Hydrox/Mg Hydrox/Simethicone (Maalox Plus 30 Ml) 30 ml PO DAILY PRN PRN Reason: Upset Stomach Last Admin: 04/14/17 22:50 Dose: 30 ml Atenolol (Tenormin) 25 mg PO DAILY [facility] Last Admin: 04/15/17 08:53 Dose: 25 mg Digoxin (Lanoxin) 0.25 mg PO 1800 [facility] Last Admin: 04/14/17 18:06 Dose: 0.25 mg Famotidine (Pepcid) 20 mg PO DAILY [facility] Last Admin: 04/15/17 08:54 Dose: 20 mg Folic Acid (Folic Acid) 1 mg PO DAILY [facility] Last Admin: 04/15/17 08:52 Dose: 1 mg Furosemide (Lasix) 20 mg PO BID [facility] Last Admin: 04/15/17 08:53 Dose: 20 mg Hydrocortisone (Cortizone 1% Cream) 1 gm TOP BID PRN PRN Reason: Itching / Pruritus Last Admin: 04/08/17 17:03 Dose: 1 cer Levothyroxine Sodium (Synthroid) 25 mcg PO 0600 [facility] Last Admin: 04/15/17 10:08 Dose: 25 mcg Lorazepam (Ativan) 2 mg PO Q6 PRN; Protocol PRN Reason: alcohol withdrawal Last Admin: 04/15/17 10:14 Dose: 2 mg Magnesium Hydroxide (Milk Of Magnesia) 30 ml PO DAILY PRN PRN Reason: Constipation Magnesium Oxide (Mag-Ox) 400 mg PO BID [facility] Last Admin: 04/15/17 08:52 Dose: 400 mg Midodrine (Proamatine) 10 mg PO TID [facility] Last Admin: 04/15/17 08:54 Dose: 10 mg Multi-Ingredient Cream (Hydrocerin Cream) 1 ea TOP TID [facility] Last Admin: 04/15/17 08:57 Dose: 1 cre Multi-Ingredient Ointment (Prep-Hem) 2 ea TOP Q6H PRN PRN Reason: Itching / Pruritus Last Admin: 04/11/17 14:56 Dose: 1 applic Multivitamins/Minerals (Therapeutic-M Tab) 1 tab PO 0800 [facility] Last Admin: 04/15/17 08:52 Dose: 1 tab Ondansetron HCl (Zofran Tab) 4 mg PO Q8H PRN PRN Reason: Nausea/Vomiting Oxycodone HCl (Oxycodone Immediate Release Tab) 5 mg PO Q6H PRN PRN Reason: Pain, severe (8-10) Last Admin: 04/14/17 16:24 Dose: 5 mg Potassium Chloride (Klor-Con 10) 10 meq PO BRKDIN [facility] Last Admin: 04/15/17 08:53 Dose: 10 meq Prednisolone (Prednisolone Oral Soln) 40 mg PO DAILY [facility] Last Admin: 04/15/17 10:03 Dose: 40 mg Quetiapine Fumarate (Seroquel) 25 mg PO HS PRN; Protocol PRN Reason: Insomnia Last Admin: 04/14/17 22:50 Dose: 25 mg Thiamine HCl (Vitamin B1 Tab) 100 mg PO DAILY [facility] Last Admin: 04/15/17 08:52 Dose: 100 mg Verapamil HCl (Calan Tab) 80 mg PO TID [facility] Last Admin: 04/15/17 08:52 Dose: 80 mg Ziprasidone (Geodon Inj) 10 mg IM Q12 PRN; Protocol PRN Reason: severe agitation - Labs Labs: 04/13/17 07:45 04/13/17 07:45 PT 19.2 SECONDS (9.4-12.5) H 04/11/17 08:00 INR 1.65 (0.93-1.08) H 04/11/17 08:00 - Additional Findings Additional findings: - Constitutional Appears: Non-toxic, No Acute Distress - Head Exam Head Exam: ATRAUMATIC, NORMOCEPHALIC - Eye Exam Eye Exam: EOMI, Scleral icterus (improving) - ENT Exam ENT Exam: Mucous Membranes Moist - Neck Exam Neck Exam: Full ROM (able to turn head all directions to track multiple members of staff in room) - Respiratory Exam Respiratory Exam: NORMAL BREATHING PATTERN, No reyes wheezing or wet breath sounds, no tachypnea or reyes cyanosis - Cardiovascular Exam Cardiovascular Exam: No JVD, No signs of reyes cyanosis or absent perfusion in all extremities - GI/Abdominal Exam GI & Abdominal Exam: Soft, Tolerating breakfast without acute issue or discomfort - Extremities Exam Extremities Exam: Unchanged pedal edema, no erythema or asymmetric swelling - Neurological Exam Neurological Exam: Alert, Awake, Oriented x3, Normal gait, moving all extremities spontaneously, motor grossly intact and equal - Psychiatric Exam Psychiatric exam: Anxious/Evasive, complaining that nothing being explained to him despite multiple prior explanations, continuous excuses not to be sent directly to rehab despite answering each one prior with solution - Skin Skin Exam: Dry, Intact, Mild Jaundice Assessment and Plan - Assessment and Plan (Free Text) Assessment: 51 year old male with a past medical history of dilated cardiomyopathy s/p single chamber ventricular pacemaker placement, chronic atrial fibrillation, alcohol abuse w/ severe withdrawals, alcoholic hepatitis thrombocytopenia, peptic ulcer disease and depression who presented to [facility] psych unit from med- surg unit for continued surveillance and treatment. Medicine team following up on jaundice and alcoholic hepatitis. Plan: 1. Alcohol abuse and treatment - continue psych treatment - Stressed consequences of further alcohol consumption, patient verbalizes understanding; now giving multiple excuses to not go directly to rehab, as per federico Neal this is part of consistent pattern of avoidance of rehab by pt 2. Jaundice - Likely 2/2 alcoholic hepatitis due to prolonged alcohol abuse - Bilirubin remains elevated, but trending down on last lab sets - Maddrey's DF >32, indicating treatment with steroids - Continue Prednisolone 40mg QD (d5 - started on 04/11/17) - Patient will require follow up with PMD or prescription clerk upon discharge - GI on consult; appreciate recs 3. Atrial fibrillation - rate controlled - Continue atenolol, digoxin, verapmil - Continue midodrine, as below 4. Peripheral edema - Continue Lasix and potassium supplement today; monitor response - Continue AE hose - Appears unchanged today as compared to prior exam 5. R wrist trauma s/p fall - Patient fell on 04/12; no head trauma; no s/s seizures, arrhythmia, CVA - R wrist XR done; acute nondisplaced communited mildly impacted fracture in distal metaphysis of radius without significant angulation, no dislocation - Patient was seen by ortho, and placed in a soft wrist brace - Ortho ([facility]) consulted, appreciate recs 6. Dilated Cardiomyopathy - Continue with cardiac medication regimen as listed above 7. Hypertension - BP now stable on current regimen - Continue Midodrine 10mg PO TID; will monitor response - Continue Lasix 20 PO BID 8. Depression - Management per psych - Cont Seroquel 9. Peptic ulcer disease - Pepcid 20 mg PO daily 10. Hypothyroidism - cont synthroid 11. Left leg pain - 2/2 swelling from peripheral Edema vs DVT vs malingering - continue Lasix/AE hose - pt seen ambulating in Psych unit earlier today and during repeat interview without complaint or acute difficultly, so less likely DVT Dispo: Psych, pending discharge, pt refusing transport to rehab and insisting on going home first FEN: Heart healthy diet, Folate/Thiamine/Multivitamin supplementation Access: N/a Consults: Medicine, Surgery (signed off), GI, Ortho Ppx: Protonix for GI, Ambulation for DVT (avoid anticoagulation in severe hepatic disease with elevated INR) Reiterated to patient need to comply with medical recommendations, medications, alcohol abstinence, encouraged to go to rehab. At this point, pt is medically stable for discharge. Case discussed with patient and cousin Val (separately ) at length, including recommendations and potential consequences of not following recommendations. Patient seen, reviewed, and discussed with attending, Dr. Garcia <Elsie Garcia - Last Filed: 04/15/17 11:56> Objective - Vital Signs/Intake and Output Vital Signs (last 24 hours): Temp Pulse Resp BP Pulse Ox 98.2 F 82 82 H 113/65 100 04/15/17 06:59 04/15/17 08:53 04/15/17 06:59 04/15/17 08:53 04/10/17 07:09 - Medications Medications: Current Medications Acetaminophen (Tylenol 325mg Tab) 650 mg PO Q4 PRN PRN Reason: Pain, Mild (1-3) Last Admin: 04/13/17 09:30 Dose: 650 mg Acetaminophen (Tylenol 325mg Tab) 650 mg PO Q6 PRN PRN Reason: Pain, moderate (4-7) Al Hydrox/Mg Hydrox/Simethicone (Maalox Plus 30 Ml) 30 ml PO DAILY PRN PRN Reason: Upset Stomach Last Admin: 04/14/17 22:50 Dose: 30 ml Atenolol (Tenormin) 25 mg PO DAILY [facility] Last Admin: 04/15/17 08:53 Dose: 25 mg Digoxin (Lanoxin) 0.25 mg PO 1800 [facility] Last Admin: 04/14/17 18:06 Dose: 0.25 mg Famotidine (Pepcid) 20 mg PO DAILY [facility] Last Admin: 04/15/17 08:54 Dose: 20 mg Folic Acid (Folic Acid) 1 mg PO DAILY [facility] Last Admin: 04/15/17 08:52 Dose: 1 mg Furosemide (Lasix) 20 mg PO BID [facility] Last Admin: 04/15/17 08:53 Dose: 20 mg Hydrocortisone (Cortizone 1% Cream) 1 gm TOP BID PRN PRN Reason: Itching / Pruritus Last Admin: 04/08/17 17:03 Dose: 1 cer Levothyroxine Sodium (Synthroid) 25 mcg PO 0600 [facility] Last Admin: 04/15/17 10:08 Dose: 25 mcg Lorazepam (Ativan) 2 mg PO Q6 PRN; Protocol PRN Reason: alcohol withdrawal Last Admin: 04/15/17 10:14 Dose: 2 mg Magnesium Hydroxide (Milk Of Magnesia) 30 ml PO DAILY PRN PRN Reason: Constipation Magnesium Oxide (Mag-Ox) 400 mg PO BID [facility] Last Admin: 04/15/17 08:52 Dose: 400 mg Midodrine (Proamatine) 10 mg PO TID [facility] Last Admin: 04/15/17 08:54 Dose: 10 mg Multi-Ingredient Cream (Hydrocerin Cream) 1 ea TOP TID [facility] Last Admin: 04/15/17 08:57 Dose: 1 cre Multi-Ingredient Ointment (Prep-Hem) 2 ea TOP Q6H PRN PRN Reason: Itching / Pruritus Last Admin: 04/11/17 14:56 Dose: 1 applic Multivitamins/Minerals (Therapeutic-M Tab) 1 tab PO 0800 [facility] Last Admin: 04/15/17 08:52 Dose: 1 tab Ondansetron HCl (Zofran Tab) 4 mg PO Q8H PRN PRN Reason: Nausea/Vomiting Oxycodone HCl (Oxycodone Immediate Release Tab) 5 mg PO Q6H PRN PRN Reason: Pain, severe (8-10) Last Admin: 04/14/17 16:24 Dose: 5 mg Potassium Chloride (Klor-Con 10) 10 meq PO BRKDIN [facility] Last Admin: 04/15/17 08:53 Dose: 10 meq Prednisolone (Prednisolone Oral Soln) 40 mg PO DAILY [facility] Last Admin: 04/15/17 10:03 Dose: 40 mg Quetiapine Fumarate (Seroquel) 25 mg PO HS PRN; Protocol PRN Reason: Insomnia Last Admin: 04/14/17 22:50 Dose: 25 mg Thiamine HCl (Vitamin B1 Tab) 100 mg PO DAILY [facility] Last Admin: 04/15/17 08:52 Dose: 100 mg Verapamil HCl (Calan Tab) 80 mg PO TID [facility] Last Admin: 04/15/17 08:52 Dose: 80 mg Ziprasidone (Geodon Inj) 10 mg IM Q12 PRN; Protocol PRN Reason: severe agitation - Labs Labs: 04/13/17 07:45 04/13/17 07:45 PT 19.2 SECONDS (9.4-12.5) H 04/11/17 08:00 INR 1.65 (0.93-1.08) H 04/11/17 08:00 Attending/Attestation - Attestation I have personally seen and examined this patient.: Yes I have fully participated in the care of the patient.: Yes I have reviewed all pertinent clinical information, including history, physical exam and plan: Yes Notes (Text): 04/15/17 11:52 Attending note; Patient seen and examined with resident in the psychiatric floor. had a long meeting with Patient/social security specialist/nurse. patient is already accepted in alcohol rehabilitation. but currently refusing to go. Patient wants to go home first. The chance of relapsing/started drinking alcohol at home is very high. But patient fused to go to rehabilitation directly from psychiatric floor. Case discussed with patient's cousin in detail over the phone. Patient has multiple admissions for alcohol abuse/but not following up with our recommendation. continues to drink. Does not take help offered by Doctors/social security specialist. the patient's cousin was explained in detail about his liver problem secondary to alcohol abuse. also explained the need for outpatient follow-up. Was referred to [facility] multiple times before. medications delivered to the bedside. Alcoholic hepatitis; currently on prednisolone. Improving LFTs. Patient is currently asymptomatic. Tolerating diet. ambulating fine without difficulty. Patient with a history of opiate abuse in the past. Asks for pain medication on and off. patient will be referred to [facility] hepatology clinic. Complete alcohol cessation is strongly advised. Patient needs to follow up with PMD/cardiology/hepatology. time spent over 35 minutes.
[2017-04-15 12:03] VITALS: RESP 20; O2SAT 98
== END 2017-04-15 13:45 | disposition home or self-care (01) | DRG 430 ==
LOC: PSYC 22:44
PROVIDERS: ADMIT Psychiatry & Neurology Psychiatry; ATTEND Psychiatry & Neurology Psychiatry
DX: F33.2 Major depressive disorder, recurrent severe without psychotic features (principal); D69.6 Thrombocytopenia, unspecified; I42.0 Dilated cardiomyopathy; F11.20 Opioid dependence, uncomplicated; I48.2 Chronic atrial fibrillation; F10.239 Alcohol dependence with withdrawal, unspecified; S52.501A Unspecified fracture of the lower end of right radius, initial encounter for closed fracture; E78.1 Pure hyperglyceridemia; G47.00 Insomnia, unspecified; G89.29 Other chronic pain; H83.3X1 Noise effects on right inner ear; M54.30 Sciatica, unspecified side; R45.851 Suicidal ideations; L29.9 Pruritus, unspecified; K70.10 Alcoholic hepatitis without ascites; W18.2XXA Fall in (into) shower or empty bathtub, initial encounter; Y92.002 Bathroom of unspecified non-institutional (private) residence as the place of occurrence of the external cause; Y93.E1 Activity, personal bathing and showering; Z87.11 Personal history of peptic ulcer disease; K52.9 Noninfective gastroenteritis and colitis, unspecified; Z79.899 Other long term (current) drug therapy; Z80.0 Family history of malignant neoplasm of digestive organs; Z87.891 Personal history of nicotine dependence; Z95.0 Presence of cardiac pacemaker; Z98.84 Bariatric surgery status; Z87.19 Personal history of other diseases of the digestive system; I10 Essential (primary) hypertension; E03.9 Hypothyroidism, unspecified; M79.605 Pain in left leg

== ENCOUNTER 2017-04-18 06:35 | Emergency (ER) | payer MEDICAID ==
[2017-04-18 06:35] VITALS: PULSE 90; BMI 33.3
[2017-04-18 06:52] VITALS: TEMP 99.3
--- NOTE | 2017-04-18 08:16 | ED PDOC ---
Arrival/HPI - General Chief Complaint: Upper Extremity Problem/Injury Time Seen by Provider: 04/18/17 07:12 Historian: Patient - History of Present Illness Narrative History of Present Illness (Text): 04/18/17 08:15 A 51 year old male, whose past medical history includes paroxysmal atrial fibrillation, hypertension, peptic ulcer disease, and chronic alcoholism, presents to the emergency department complaining of right wrist pain for the past week. Patient denies any injury. Patient reports he was admitted to the hospital about three weeks ago for atrial fibrillation. Patient was told to get hand xray done by Dr. Allan. Patient denies any fever, shoulder pain or any other complaints at this time. 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 related noise exposure - Renal Hx Renal Disorder: No - Endocrine/Metabolic Hx Endocrine Disorders: No - Hematological/Oncological Hx Cancer: No - Integumentary Hx Dermatological Disorder: No Other/Comment: tatoos, bruise to left abd and rib area, left eye orbit eccymosis fell at home 10/18/16 - Musculoskeletal/Rheumatological Hx Musculoskeletal Disorders: Yes (RIB FX) Hx Back Pain: Yes Hx Falls: Yes Hx Fractures: Yes (Rib) - Gastrointestinal Hx Gastrointestinal Disorders: Yes (ACUTE PANCREATITIS) Hx Diverticulitis: Yes Hx Liver Failure: Yes (Abnormal Liver function test) Hx Pancreatitis: Yes - Genitourinary/Gynecological Hx Genitourinary Disorders: No - Psychiatric Hx Psychophysiologic Disorder: Yes Hx Anxiety: Yes Hx Depression: Yes Hx Substance Use: No Other/Comment: alcohol abuse and withdrawal/ delirium.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 [employer] - Surgical History Hx Mastectomy: No - Anesthesia Hx Anesthesia: Yes Hx Anesthesia Reactions: No Hx Malignant Hyperthermia: No - Suicidal Assessment Feels Threatened In Home Enviroment: No Family/Social History - Physician Review Nursing Documentation Reviewed: Yes Family/Social History: No Known Family HX Smoking Status: Former Smoker Hx Alcohol Use: Yes Amount per day: 6 Hx Substance Use: No Hx Substance Use Treatment: No Allergies/Home Meds Allergies/Adverse Reactions: Allergies No Known Allergies Allergy (Verified 04/06/17 23:28) Review of Systems - Physician Review All systems were reviewed & negative as marked: Yes - Review of Systems Constitutional: absent: Fevers Musculoskeletal: Other (right wrist pain; no shoulder pain) Physical Exam - Physical Exam Narrative Physical Exam (Text): 04/18/17 08:16 Constitutional: No acute distress. Head: Normocephalic. Atraumatic. Eyes: PERRL. ENT: Moist mucous membranes. Neck: Supple. Cardiovascular: Regular rate. Chest: No tenderness. Respiratory: Clear to auscultation bilaterally. GI: Soft. Nontender. Nondistended. Back: No CVA tenderness. Musculoskeletal: Tenderness to radial aspect of right wrist, full ROM, no edema. No tenderness or swelling of lower extremities. Skin: No rash. Neurologic: Alert, no focal deficit. Vital Signs Reviewed: Yes Vital Signs Temp Pulse Resp BP Pulse Ox 04/18/17 09:00 116 H 16 102/63 98 04/18/17 06:50 99.3 F 105 H 20 129/87 100 Temperature: Afebrile Blood Pressure: Normal Pulse: Tachycardic Respiratory Rate: Normal Appearance: Positive for: Well-Appearing, Non-Toxic, Comfortable Pain Distress: None Mental Status: Positive for: Alert and Oriented X 3 Medical Decision Making ED Course and Treatment: 04/18/17 08:13 Impression: A 51 year old male with right wrist pain. Plan: -- Radiology right wrist -- Tylenol -- Reassess and disposition Prior Visits: Notes and results from previous visits were reviewed. Patient was last seen in the emergency department on 03/29/17 for evaluation of left lower back discomfort radiating to left lower buttock area. Progress Notes: 04/18/17 08:28 Right Wrist Radiographs Creator : Aaron Kern MD FINDINGS: BONES: Nondisplaced fracture distal radius, likely comminuted and intra- articular, with dorsal angulation. Radiocarpal articulation intact. No carpal fracture. No other fracture identified. JOINTS: As above SOFT TISSUES: Normal. IMPRESSION: Nondisplaced intra-articular distal radial fracture with dorsal angulation. . Called Dr. Allan who knows patient and knew that patient had radial fracture. He states he will have patient see him in office next for further management. Patient was previously in splint. Discharged home, f/u Dr. Mcmahon, return to ED for worsening fever, pain, or any other problem. - RAD Interpretation Radiology Orders: 04/18/17 07:29 WRIST, RIGHT 3 VIEWS [RAD] Stat - Medication Orders Current Medication Orders: Discontinued Medications Acetaminophen (Tylenol 325mg Tab) 650 mg PO STAT [facility] Stop: 04/18/17 07:29 Last Admin: 04/18/17 07:37 Dose: Not Given Non-Admin Reason: Patient Refused Oxycodone/Acetaminophen (Percocet 5/325 Mg Tab) 1 tab PO STAT [facility] Stop: 04/18/17 08:45 Last Admin: 04/18/17 08:53 Dose: 1 tab MAR Pain Assessment Document 04/18/17 08:53 CNR (Rec: 04/18/17 08:53 CNR [id number]) Pain Reassessment Is this a pain reassessment? Yes - Scribe Statement The provider has reviewed the documentation as recorded by the Umer Jo Provider Scribe Attestation: All medical record entries made by the Scribe were at my direction and personally dictated by me. I have reviewed the chart and agree that the record accurately reflects my personal performance of the history, physical exam, medical decision making, and the department course for this patient. I have also personally directed, reviewed, and agree with the discharge instructions and disposition. Disposition/Present on Arrival - Present on Arrival Any Indicators Present on Arrival: No History of DVT/PE: No History of Uncontrolled Diabetes: No Urinary Catheter: No History of Decub. Ulcer: No History Surgical Site Infection Following: None - Disposition Have Diagnosis and Disposition been Completed?: Yes Diagnosis: Radial fracture Disposition: HOME/ ROUTINE Disposition Time: 08:27 Patient Plan: Discharge Condition: STABLE Discharge Instructions (ExitCare): Wrist Fracture in Adults (ED) Additional Instructions: Confirm your appointment today. Your appointment is on , April 27. Referrals: José Allan DO [Staff Provider] - Follow up with primary Forms: [email or web address] ([place])
--- NOTE | 2017-04-18 08:26 | RAD ---
PROCEDURE: Right Wrist Radiographs. HISTORY: wrist pain COMPARISON: None. FINDINGS: BONES: Nondisplaced fracture distal radius, likely comminuted and intra-articular, with dorsal angulation. Radiocarpal articulation intact. No carpal fracture. No other fracture identified. JOINTS: As above SOFT TISSUES: Normal. OTHER FINDINGS: None. IMPRESSION: Nondisplaced intra-articular distal radial fracture with dorsal angulation. .
[2017-04-18] MEDS ORDERED: Oxycodone/Acetaminophen 5/325 mg Tab PO STA (08:44)
[2017-04-18 09:12] VITALS: RESP 16
[2017-04-18 09:53] VITALS: BP 110/68; PULSE 108; O2SAT 100
== END 2017-04-18 09:52 | disposition home or self-care (01) ==
LOC: ED 06:35
DX: S52.501A Unspecified fracture of the lower end of right radius, initial encounter for closed fracture (principal); X58.XXXA Exposure to other specified factors, initial encounter; Y92.9 Unspecified place or not applicable

== ENCOUNTER 2017-04-21 18:09 | Inpatient (IN) | payer MEDICAID ==
[2017-04-21 18:15] VITALS: BMI 29.9
[2017-04-21] MEDS ORDERED: Sodium Chloride 0.9% 500 ML IV STA (18:28)
--- NOTE | 2017-04-21 18:54 | ED PDOC ---
Arrival/HPI - General Chief Complaint: GI Problem Time Seen by Provider: 04/21/17 18:12 Historian: Patient - History of Present Illness Narrative History of Present Illness (Text): 04/21/17 18:53 A 51 year old male, whose past medical history includes atrial fibrillation, hypertension, peptic ulcer disease and chronic alcoholism, last drank alcohol on 03/20/17, presents to the emergency department complaining of blood in stool and vomiting today. Patient reports some abdominal pain, similar to symptom in the past. Reports dark blood in stool, three episodes today, but denies any hematemesis or any other complaints at this time. 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 related noise exposure - Renal Hx Renal Disorder: No - Endocrine/Metabolic Hx Endocrine Disorders: No - Hematological/Oncological Hx Cancer: No - Integumentary Hx Dermatological Disorder: No Other/Comment: tatoo - Musculoskeletal/Rheumatological Hx Musculoskeletal Disorders: Yes (RIB FX) Hx Back Pain: Yes Hx Falls: Yes Hx Fractures: Yes (Rib) Other/Comment: edema to lower extremeties - Gastrointestinal Hx Gastrointestinal Disorders: Yes (ACUTE PANCREATITIS) Hx Diverticulitis: Yes Hx Liver Failure: Yes (Abnormal Liver function test) Hx Pancreatitis: Yes - Genitourinary/Gynecological Hx Genitourinary Disorders: No - Psychiatric Hx Psychophysiologic Disorder: Yes Hx Anxiety: Yes Hx Depression: Yes Hx Substance Use: No Other/Comment: alcohol abuse and withdrawal/ delirium.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 [employer] LIGHT - Surgical History Hx Mastectomy: No - Anesthesia Hx Anesthesia: Yes Hx Anesthesia Reactions: No Hx Malignant Hyperthermia: No - Suicidal Assessment Feels Threatened In Home Enviroment: No Family/Social History - Physician Review Nursing Documentation Reviewed: Yes Family/Social History: No Known Family HX Smoking Status: Former Smoker Hx Alcohol Use: Yes Amount per day: 6 Hx Substance Use: No Hx Substance Use Treatment: No Allergies/Home Meds Allergies/Adverse Reactions: Allergies No Known Allergies Allergy (Verified 04/06/17 23:28) Review of Systems - Physician Review All systems were reviewed & negative as marked: Yes - Review of Systems Gastrointestinal: Abdominal Pain, Vomiting, Other (blood in stools). absent: Hematemesis Neurological: absent: Headache Physical Exam Vital Signs Reviewed: Yes Vital Signs Temp Pulse Resp BP Pulse Ox 04/21/17 22:00 97.7 F 91 H 17 101/48 L 04/21/17 21:55 98.2 F 92 H 20 84/53 L 04/21/17 21:45 97.7 F 91 H 21 121/48 L 04/21/17 21:10 97.6 F 90 18 80/47 L 04/21/17 20:50 97.7 F 94 H 18 97/46 L 04/21/17 20:49 97.7 F 80 18 97/46 L 96 04/21/17 19:13 92 H 20 85/50 L 100 04/21/17 18:09 98.7 F 82 21 91/43 L 100 Temperature: Afebrile Blood Pressure: Hypotensive Pulse: Regular Respiratory Rate: Normal Appearance: Positive for: Comfortable, Other (jaundices, pale appearing) Pain Distress: None Mental Status: Positive for: Alert and Oriented X 3 - Systems Exam Head: Present: Atraumatic, Normocephalic Pupils: Present: PERRL Extroacular Muscles: Present: EOMI Conjunctiva: Present: Normal Mouth: Present: Moist Mucous Membranes Neck: Present: Normal Range of Motion Respiratory/Chest: Present: Clear to Auscultation, Good Air Exchange. No: Respiratory Distress, Accessory Muscle Use Cardiovascular: Present: Regular Rate and Rhythm, Normal S1, S2. No: Murmurs Abdomen: Present: Normal Bowel Sounds. No: Tenderness, Distention, Peritoneal Signs Rectal: Present: Gross Blood (hepatologist Scribe Belqes present) Back: Present: Normal Inspection Upper Extremity: Present: Normal Inspection. No: Cyanosis, Edema Lower Extremity: Present: Normal Inspection. No: Edema Neurological: Present: GCS=15, CN II-XII Intact, Speech Normal Skin: Present: Warm, Dry, Normal Color. No: Rashes Psychiatric: Present: Alert, Oriented x 3, Normal Insight, Normal Concentration Medical Decision Making ED Course and Treatment: 04/21/17 18:52 Impression: A 51 year old male with blood in stool and vomiting. Plan: -- EKG -- chest xray -- labs -- Urinalysis -- IV fluids -- Reassess and disposition Prior Visits: Notes and results from previous visits were reviewed. Patient was last seen in the emergency department on 04/18/17 for evaluation of right wrist pain. Progress Notes: EKG: Ordered, reviewed, and independently interpreted the EKG. Rate : 91 BPM Rhythm : paced rhythm Interpretation : No ST-segment elevations or depressions 04/21/17 20:09 PROCEDURE: CENTRAL LINE PLACEMENT Performed by the emergency provider, Time: 800 Consent: Discussion of the risks, benefits, and alternatives to the procedure, along with informed consent was precluded by the urgency of the procedure and the patient condition. Timeout: A timeout to verify the correct patient, procedure, and site was performed. Indication: need access, possible pressors Anesthesia: Local anesthesia: See MAR for details. Skin Preparation: Hand hygiene performed prior to central venous catheter insertion. Sterile field, sterile drape, sterile technique, and cap and gown were used. The area was cleansed with 2% Chlorhexidine. Patient position: supine Location: right groin Ultrasound guidance: {YES Technique: The landmarks for the line placement were identified. The vessel was cannulated and a non-tunneled 7.0 Fr triple lumen was placed using the Seldinger technique. Successful placement: {YES / . Line sutured with silk and appropriate dressing applied. Assessment: Good patency and blood return through all three lumens. The ports were appropriately flushed. See post procedure X-Ray interpretation. Post-procedure: Patient tolerated the procedure well with no immediate complications. 04/21/17 21:24 Patient was seen by GI fellow at bedside, advises patient will be evaluated in am for possible endoscopy. Patient in agreement with plan. 04/22/17 11:58 - Critical Care Critical Care Minutes: 60 minutes - Lab Interpretations Lab Results: 04/21/17 18:25 04/21/17 18:25 Lab Results 04/21/17 19:13: Blood Type A POSITIVE, Antibody Screen Negative, Crossmatch See Detail, BBK History Checked Patient has bt 04/21/17 18:25: Digoxin 1.4 04/21/17 18:25: Alcohol, Quantitative < 10 04/21/17 18:25: Ammonia 14 04/21/17 18:25: Sodium 125 L, Potassium 4.3, Chloride 100, Carbon Dioxide 20 L, Anion Gap 10, BUN 12, Creatinine 0.7 L, Est GFR ( Amer) > 60, Est GFR ( Non-Af Amer) > 60, Random Glucose 113 H, Calcium 7.4 L, Magnesium 1.7, Total Bilirubin 4.8 H, Direct Bilirubin 4.1 H, AST 100 H D, ALT 83 H, Alkaline Phosphatase 93, Lactate Dehydrogenase 319 L, Total Creatine Kinase < 20 L, Troponin I < 0.01, Total Protein 4.5 L, Albumin 2.0 L, Globulin 2.6, Albumin/ Globulin Ratio 0.8 L, Lipase 21 L 04/21/17 18:25: PT 15.9 H, INR 1.39 H, APTT 34.4 04/21/17 18:25: WBC 6.5 D, RBC 1.71 L, Hgb 5.9 L* D, Hct 17.3 L*, MCV 101.2 D , MCH 34.5, MCHC 34.1, RDW 13.4, Plt Count 91 L, MPV 9.7, Gran % 73.5 H, Lymph % (Auto) 13.4 L, [place] % (Auto) 12.2 H, Eos % (Auto) 0.9 L, Baso % (Auto) 0.0, Gran # 4.77, Lymph # (Auto) 0.9 L, [place] # (Auto) 0.8 H, Eos # (Auto) 0.1, Baso # (Auto) 0.00 I have reviewed the lab results: Yes - RAD Interpretation Radiology Orders: 04/21/17 18:27 CHEST PORTABLE [RAD] Stat - EKG Interpretation Interpreted by ED Physician: Yes Type: 12 lead EKG - Medication Orders Current Medication Orders: Albumin Human (Albumin Human 5% (12.5 Gm/250 Ml)) 12.5 gm IV Q4H [facility] Stop: 04/22/17 13:00 Last Admin: 04/22/17 09:02 Dose: 12.5 gm Digoxin (Lanoxin Elixir Soln) 0.125 mg PO DAILY [facility] Last Admin: 04/22/17 11:26 Dose: 0.125 mg Folic Acid (Folic Acid) 1 mg IM DAILY [facility] Last Admin: 04/22/17 11:09 Dose: 1 mg IM Administration Charges Document 04/22/17 11:09 GLI (Rec: 04/22/17 11:10 GLI [id number]) Injection Site MAR Injection Site Left Deltoid Charges for Administration # of IM Administrations 1 Pantoprazole Sodium (Protonix 40mg Ivpb) 40 mg in 100 mls @ 20 mls/hr IVPB .Q5H [facility] Last Admin: 04/22/17 11:09 Dose: 20 mls/hr eMAR Start Stop Document 04/22/17 11:09 GLI (Rec: 04/22/17 11:09 GLI [id number]) Intravenous Solution Start Date 04/22/17 Start Time 11:09 End Date 04/22/17 Ceftriaxone Sodium (Rocephin 1 Gram Ivpb) 1 gm in 100 mls @ 100 mls/hr IVPB DAILY [facility] PRN Reason: Protocol Last Admin: 04/22/17 10:46 Dose: 100 mls/hr eMAR Start Stop Document 04/22/17 10:46 GLI (Rec: 04/22/17 10:46 GLI [id number]) Intravenous Solution Start Date 04/22/17 Start Time 10:46 End Date 04/22/17 Sodium Chloride (Sodium Chloride 0.9%) 1,000 mls @ 100 mls/hr IV .Q10H [facility] Last Admin: 04/22/17 11:12 Dose: 100 mls/hr eMAR Start Stop Document 04/22/17 11:12 GLI (Rec: 04/22/17 11:13 GLI [id number]) Intravenous Solution Start Date 04/22/17 Start Time 11:13 End Date 04/22/17 Levothyroxine Sodium (Synthroid) 25 mcg PO 0600 [facility] Last Admin: 04/22/17 06:17 Dose: 25 mcg Lorazepam (Ativan) 2 mg IVP Q4H PRN; Protocol PRN Reason: Agitation Last Admin: 04/21/17 23:21 Dose: 2 mg IVP Administration Document 04/21/17 23:21 PM (Rec: 04/21/17 23:21 PM [facility] [id number] Charges for Administration # of IVP Administrations 1 Behavioural Document 04/21/17 23:21 PM (Rec: 04/21/17 23:21 PM [facility] [id number] Maintenance Maintenance Dose Yes Behavior Behavior for Medication: Anxiety Re-Assess: Reassess Psych Meds Document 04/21/17 23:51 PM (Rec: 04/22/17 00:00 PM [id number]) Reassess Psych Med Effective Multivitamins/Vitamin C (Multi-Delyn Liquid) 15 ml PO 0800 [facility] Last Admin: 04/22/17 11:10 Dose: 15 ml Sucralfate (Carafate Oral Susp) 1 gm PO 0630,1130,1630,2200 [facility] Last Admin: 04/22/17 11:10 Dose: 1 gm Thiamine HCl (Vitamin B1 Inj) 100 mg IM DAILY [facility] Last Admin: 04/22/17 11:01 Dose: 100 mg IM Administration Charges Document 04/22/17 11:01 GLI (Rec: 04/22/17 11:01 GLI [id number]) Charges for Administration # of IM Administrations 1 Discontinued Medications Sodium Chloride (Sodium Chloride 0.9%) 500 mls @ 999 mls/hr IV .Q31M [facility] Stop: 04/21/17 18:58 Last Admin: 04/21/17 19:13 Dose: 999 mls/hr eMAR Start Stop Document 04/21/17 19:13 MS (Rec: 04/21/17 19:15 MS [facility] [id number] Intravenous Solution Start Date 04/21/17 Start Time 19:14 End Date 04/21/17 End time 19:44 Total Infusion Time 30 Sodium Chloride (Sodium Chloride 0.9%) 1,000 mls @ 999 mls/hr IV .Q1H1M STA Stop: 04/21/17 20:20 Last Admin: 04/21/17 20:07 Dose: 999 mls/hr eMAR Start Stop Document 04/21/17 20:07 SS (Rec: 04/21/17 20:09 SS [id number]) Intravenous Solution Start Date 04/21/17 Start Time 19:30 End Date 04/21/17 End time 20:30 Total Infusion Time 60 Octreotide Acetate 50 mcg/ (Sodium Chloride) 51 mls @ 102 mls/hr IV STAT [facility] PRN Reason: Protocol Stop: 04/21/17 20:07 Last Admin: 04/21/17 21:24 Dose: 102 mls/hr eMAR Start Stop Document 04/21/17 21:24 SS (Rec: 04/21/17 21:24 SS [id number]) Intravenous Solution Start Date 04/21/17 Start Time 20:38 End Date 04/21/17 End time 21:08 Total Infusion Time 30 Octreotide Acetate 1,250 mcg/ (Sodium Chloride) 252.5 mls @ 5.05 mls/hr IV .Q24H [facility]; 25 MCG/HR PRN Reason: Protocol Last Admin: 04/21/17 21:18 Dose: 25 mcg/hr, 5.05 mls/hr eMAR Start Stop Document 04/21/17 21:18 SS (Rec: 04/21/17 21:49 SS [id number]) Intravenous Solution Start Date 04/21/17 Start Time 21:18 Titration Intervention Document 04/21/17 21:18 SS (Rec: 04/21/17 21:49 SS [id number]) Titration Intake Waste Amount 0 Container Volume 252.5 Titration Dosing Titration Dose 25 IV Rate 5.05 Intake/Decrease Started Sodium Chloride (Sodium Chloride 0.9%) 1,000 mls @ 100 mls/hr IV .Q10H [facility] Last Admin: 04/21/17 21:49 Dose: 100 mls/hr eMAR Start Stop Document 04/21/17 21:49 SS (Rec: 04/21/17 21:49 SS [id number]) Intravenous Solution Start Date 04/21/17 Start Time 21:49 Sodium Chloride (Sodium Chloride 0.9%) 1,000 mls @ 125 mls/hr IV .Q8H [facility] Last Admin: 04/21/17 23:22 Dose: 125 mls/hr eMAR Start Stop Document 04/21/17 23:22 PM (Rec: 04/21/17 23:22 PM [facility] [id number] Intravenous Solution Start Date 04/21/17 Start Time 23:22 Octreotide Acetate (Sandostatin) 50 mcg IVP STAT [facility] Stop: 04/21/17 19:39 Last Admin: 04/21/17 20:06 Dose: 50 mcg IVP Administration Document 04/21/17 20:06 SS (Rec: 04/21/17 20:06 SS [id number]) Charges for Administration # of IVP Administrations 1 Pantoprazole Sodium (Protonix Inj) 40 mg IVP STAT STA Stop: 04/21/17 19:41 Last Admin: 04/21/17 20:06 Dose: 40 mg IVP Administration Document 04/21/17 20:06 SS (Rec: 04/21/17 20:06 SS [id number]) Charges for Administration # of IVP Administrations 1 - Scribe Statement The provider has reviewed the documentation as recorded by the [employer] Jo Provider Scribe Attestation: All medical record entries made by the [employer] were at my direction and personally dictated by me. I have reviewed the chart and agree that the record accurately reflects my personal performance of the history, physical exam, medical decision making, and the department course for this patient. I have also personally directed, reviewed, and agree with the discharge instructions and disposition. Disposition/Present on Arrival - Present on Arrival Any Indicators Present on Arrival: No History of DVT/PE: No History of Uncontrolled Diabetes: No Urinary Catheter: No History of Decub. Ulcer: No History Surgical Site Infection Following: None - Disposition Have Diagnosis and Disposition been Completed?: Yes Diagnosis: GI bleed, Hyponatremia Disposition: HOSPITALIZED Disposition Time: 08:00 Condition: CRITICAL
[2017-04-21 19:20] LABS: EOS # 0.1 (0.0-0.7); EOS % 0.9 % (1.5-5.0); GRAN # 4.77 (1.4-6.5); GRAN % 73.5 % (50.0-68.0); LYMPH # 0.9 (1.2-3.4); LYMPH % 13.4 % (22.0-35.0); MEAN CELL VOLUME 101.2 fl (80.0-105.0); MEAN CORPUSCULAR HEMOGLOBIN 34.5 pg (25.0-35.0); MEAN CORPUSCULAR HGB CONC 34.1 g/dl (31.0-37.0); MEAN PLATELET VOLUME 9.7 fl (7.0-11.0); MONO # 0.8 (0.1-0.6); MONO % 12.2 % (1.0-6.0); RBC 1.71 10^6/uL (3.5-6.1); RED CELL DISTRIBUTION WIDTH 13.4 % (11.5-14.5); WHITE BLOOD COUNT 6.5 10^3/ul (4.5-11.0)
[2017-04-21] MEDS ORDERED: Sodium Chloride 0.9% 1,000 ML IV STA (19:20)
[2017-04-21 19:25] LABS: HEMOGLOBIN 5.9 g/dL (14.0-18.0)
[2017-04-21 19:35] LABS: ALB/GLOB RATIO 0.8 (1.1-1.8); ALT/SGPT 83 U/L (7-56); AST/SGOT 100 U/L (17-59); BILIRUBIN,DIRECT 4.1 mg/dL (0.0-0.4); BLOOD UREA NITROGEN 12 mg/dL (7-21); CALCIUM 7.4 mg/dL (8.4-10.5); GFR AFRICAN-AMERICAN > 60; GFR NON-AFRICAN AMERICAN > 60; LIPASE 21 U/L (23-300); MAGNESIUM 1.7 mg/dL (1.7-2.2)
[2017-04-21 19:38] LABS: INR 1.39 (0.93-1.08); PARTIAL THROMBOPLASTIN TIME 34.4 Seconds (25.1-36.5); PROTHROMBIN TIME 15.9 SECONDS (9.4-12.5)
[2017-04-21 19:40] LABS: TROPONIN I < 0.01 ng/mL
[2017-04-21] MEDS ORDERED: Sodium Chloride 0.9% 1,000 ML IV SCH ×2 (20:45→22:10)
[2017-04-21] MEDS ORDERED: Iohexol 350 MG/100 ML VIAL ONE (20:50)
[2017-04-21] MEDS: Pantoprazole 40mg/100mL NS 40 MG/100 ML BAG IVPB SCH (21:23)
[2017-04-21 21:29] LABS: URINE APPEARANCE CLEAR (CLEAR); URINE BILIRUBIN MODERATE (NEGATIVE); URINE BLOOD NEGATIVE (NEGATIVE); URINE COLOR YELLOW (YELLOW); URINE GLUCOSE (UA) NEGATIVE (NEGATIVE); URINE LEUKOCYTE ESTERASE NEGATIVE Leu/uL (NEGATIVE); URINE NITRATE NEGATIVE (NEGATIVE); URINE PROTEIN TRACE mg/dL (<30 mg/dL); URINE UROBILINOGEN 0.2 E.U./dL (<1 E.U./dL)
[2017-04-21 21:33] LABS: URINE BACTERIA MANY (NEG); URINE RBC 0 - 2 /hpf (0-2)
[2017-04-21 21:34] LABS: URINE AMORPHOUS SEDIMENT FEW; URINE COARSE GRANULAR CAST TRACE /hpf (0-2)
--- NOTE | 2017-04-21 21:34 | CP.PCM.HP ---
<Mariana Brar - Last Filed: 04/21/17 21:12> History of Present Illness - History of Present Illness History of Present Illness: CC: Abdominal Pain and dark stools HPI: 51 M with a PMHx of dilated cardiomyopathy s/p single chamber ventricular pacemaker placement, chronic atrial fibrillation, alcohol abuse, thrombocytopenia, peptic ulcer disease and depression [place] [facility] [place] complaints of abdominal pain and dark tarry stools. Pt states that he awoke this morning from diffuse abdominal pain and soon after had a bowel movement that was dark/tarry. Pt had similar episodes in the past. Pt then reports having excessive gas and again had approx 3-4 dark tarry bowel movements in the afternoon. He was feeling slightly lightheaded and fatigue afterwards and decided to seek medical attention. Pt was found to be hypotensive and significantly anemic in the ED. Pt was seen and examined at bedside. Pt denied fever, chills, sob, chest pains, nausea, vomiting, diarrhea, constipation, or urinary symptoms. PMHx:dilated cardiomyopathy s/p single chamber ventricular pacemaker placement, chronic atrial fibrillation, alcohol abuse, thrombocytopenia, peptic ulcer disease and depression PSHx:Single chamber ventricular pacemaker placement SHx: etoh abuse last drink first week of March 2017. denied tobacco/illicit drugs FamHx:noncontributory Meds: Verapamil, Atenolol, Digoxin, Synthroid, Folic Acid, MV and thiamine Allergies: NKDA PMD: Denied Present on Admission - Present on Admission Any Indicators Present on Admission: No Review of Systems - Review of Systems Review of Systems: as per HPI otherwise negative Past Patient History - Infectious Disease Hx of Infectious Diseases: None - Tetanus Immunizations Tetanus Immunization: Unknown - Past Medical History & Family History Past Medical History?: Yes - Past Social History Smoking Status: Former Smoker - CARDIAC Hx Cardiac Disorders: Yes Hx Pacemaker: Yes - PULMONARY Hx Respiratory Disorders: Yes (shortness of breath,CIGARETTES AND CIGAR SMOKER.OCCASIONAL) - NEUROLOGICAL Hx Neurological Disorder: Yes - HEENT Hx HEENT Problems: Yes (eyeglasses) Other/Comment: 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 related noise exposure - RENAL Hx Chronic Kidney Disease: No - ENDOCRINE/METABOLIC Hx Endocrine Disorders: No - HEMATOLOGICAL/ONCOLOGICAL Hx Cancer: No - INTEGUMENTARY Hx Dermatological Problems: No Other/Comment: tatoo - MUSCULOSKELETAL/RHEUMATOLOGICAL Hx Musculoskeletal Disorders: Yes (RIB FX) Hx Back Pain: Yes Hx Falls: Yes Hx Fractures: Yes (Rib) Other/Comment: edema to lower extremeties - GASTROINTESTINAL Hx Gastrointestinal Disorders: Yes (ACUTE PANCREATITIS) Hx Diverticulitis: Yes Hx Liver Failure: Yes (Abnormal Liver function test) Hx Pancreatitis: Yes - GENITOURINARY/GYNECOLOGICAL Hx Genitourinary Disorders: No - PSYCHIATRIC Hx Psychophysiologic Disorder: Yes Hx Anxiety: Yes Hx Depression: Yes Hx Substance Use: No Other/Comment: alcohol abuse and withdrawal/ delirium.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 [employer] LIGHT - SURGICAL HISTORY Hx Mastectomy: No - ANESTHESIA Hx Anesthesia: Yes Hx Anesthesia Reactions: No Hx Malignant Hyperthermia: No Meds Allergies/Adverse Reactions: Allergies Allergy/AdvReac Type Severity Reaction Status Date / Time No Known Allergies Allergy Verified 04/06/17 23:28 Physical Exam - Constitutional Appears: No Acute Distress - Head Exam Head Exam: ATRAUMATIC, NORMAL INSPECTION, NORMOCEPHALIC - Eye Exam Eye Exam: EOMI, Normal appearance, PERRL, Scleral icterus Pupil Exam: NORMAL ACCOMODATION, PERRL - ENT Exam ENT Exam: Mucous Membranes Moist, Normal Exam - Respiratory Exam Respiratory Exam: Clear to Auscultation Bilateral, NORMAL BREATHING PATTERN - Cardiovascular Exam Cardiovascular Exam: Bradycardia, +S1, +S2 - GI/Abdominal Exam GI & Abdominal Exam: Normal Bowel Sounds, Soft, Tenderness (diffuse) - Extremities Exam Extremities exam: Positive for: pedal edema. Negative for: tenderness - Neurological Exam Neurological exam: Alert, CN II-XII Intact, Oriented x3, Reflexes Normal - Psychiatric Exam Psychiatric exam: Normal Affect, Normal Mood - Skin Skin Exam: Dry, Intact, Normal Color, Warm Results - Vital Signs Recent Vital Signs: Last Vital Signs Temp 97.6 F 04/21/17 21:10 Pulse 90 04/21/17 21:10 Resp 18 04/21/17 21:10 BP 80/47 L 04/21/17 21:10 Pulse Ox 96 04/21/17 20:49 - Labs Result Diagrams: 04/21/17 18:25 04/21/17 18:25 Assessment & Plan - Assessment and Plan (Free Text) Assessment: 51 year old male with a PMHx of dilated cardiomyopathy s/p single chamber ventricular pacemaker placement, chronic atrial fibrillation, alcohol abuse, thrombocytopenia, peptic ulcer disease and depression who presented with complaints of abodminal pain and black tarry stools found to be hypotensive and significantly anemic with Hgb of 5.9. Pt admitted to ICU for close HD monitoring. Neuro stable speaking in full sentences moving all extremities spontaneously hx etoh abuse, urine etoh <10, ammonia 14 ativan [id number] neurochecks continue to monitor Pulm stable 02 sat>90% 02 NC prn to maintain 02 sat>90% continue to monitor CVS hypotensive 80/50s IVF NS @100ml/hr octreotide drip transfuse pRBC hx Afib continue digoxin continue to monitor GI black tarry stool 2/2 GI bleed GI consulted, Dr. Kelley follow up with reccs Octreotide drip protonix drip transaminitis 2/2 alcoholic hepatitis continue to monitor NPO except meds Renal conitnue to monitor renal fcn BUN/ Cr stable hyponatremic 125, IVF NS @100ml/hr monitor electrolytes and supplement as needed strict I&Os daily weight monitor UOP Heme significant anemia hgb 5.9 likely 2/2 GI bleed transfuse pRBCs continue to monitor CBC Q6h Endo hypothyroidism continue synthroid maintain bg 140-180 DVT/GI ppx reviewed Seen reviewed and discussed with Dr. Womack <Shanta CRENSHAW,[facility] - Last Filed: 04/22/17 06:59> Results - Vital Signs Recent Vital Signs: Last Vital Signs Temp 98 F 04/22/17 03:38 Pulse 75 04/22/17 05:40 Resp 18 04/22/17 05:40 BP 104/67 04/22/17 05:00 Pulse Ox 100 04/22/17 05:40 - Labs Result Diagrams: 04/22/17 05:00 04/22/17 05:00 Labs: Laboratory Results - last 24 hr 04/21/17 04/22/17 04/22/17 21:18 05:00 05:00 WBC 5.3 RBC 2.33 L Hgb 7.6 L Hct 22.7 L MCV 97.4 D MCH 32.6 MCHC 33.5 RDW 16.4 H Plt Count 100 L MPV 10.3 Gran % 69.9 H Lymph % (Auto) 19.0 L [place] % (Auto) 10.1 H Eos % (Auto) 0.8 L Baso % (Auto) 0.2 Gran # 3.67 Lymph # (Auto) 1.0 L [place] # (Auto) 0.5 Eos # (Auto) 0.0 Baso # (Auto) 0.01 Sodium 134 Potassium 4.4 Chloride 107 Carbon Dioxide 21 Anion Gap 11 BUN 8 Creatinine 0.5 L Est GFR ( Amer) > 60 Est GFR (Non-Af Amer) > 60 Random Glucose 133 H Calcium 7.5 L Phosphorus 3.2 Magnesium 1.9 Total Bilirubin 6.5 H AST 105 H ALT 82 H Alkaline Phosphatase 85 Total Protein 4.6 L Albumin 2.0 L Globulin 2.6 Albumin/Globulin Ratio 0.8 L TSH 3rd Generation Urine Color Yellow Urine Appearance Clear Urine pH 7.0 Ur Specific [place] 1.010 Urine Protein Trace H Urine Glucose (UA) Negative Urine Ketones Negative Urine Blood Negative Urine Nitrate Negative Urine Bilirubin Moderate H Urine Urobilinogen 0.2 Ur Leukocyte Esterase Negative Urine RBC 0 - 2 Urine WBC 1 - 3 Ur Epithelial Cells None Amorphous Sediment Few Urine Bacteria Many Coarse Granular Casts Trace H Urine Other [place]ast 04/22/17 05:00 WBC RBC Hgb Hct MCV MCH MCHC RDW Plt Count MPV Gran % Lymph % (Auto) [place] % (Auto) Eos % (Auto) Baso % (Auto) Gran # Lymph # (Auto) [place] # (Auto) Eos # (Auto) Baso # (Auto) Sodium Potassium Chloride Carbon Dioxide Anion Gap BUN Creatinine Est GFR ( Amer) Est GFR (Non-Af Amer) Random Glucose Calcium Phosphorus Magnesium Total Bilirubin AST ALT Alkaline Phosphatase Total Protein Albumin Globulin Albumin/Globulin Ratio TSH 3rd Generation 1.33 Urine Color Urine Appearance Urine pH Ur Specific [place] Urine Protein Urine Glucose (UA) Urine Ketones Urine Blood Urine Nitrate Urine Bilirubin Urine Urobilinogen Ur Leukocyte Esterase Urine RBC Urine WBC Ur Epithelial Cells Amorphous Sediment Urine Bacteria Coarse Granular Casts Urine Other Attending/Attestation - Attestation I have personally seen and examined this patient.: Yes I have fully participated in the care of the patient.: Yes I have reviewed all pertinent clinical information: Yes Notes (Text): -I agree with the above H&P completed by the resident physician with the following additions and/or changes: -The patient is a 51 year old man with a history of PUD, chronic atrial fibrillation (s/p pacemaker and not on anticoagulation), chronic alcohol abuse, depression, dilated cardiomyopathy (EF=30-35%) and a recent right hand fracture , who is being admitted to the ICU with hypotension and severe symptomatic anemia due to new onset melena for the past 24 hours prior to admission. In the ED, he was hypotensive (SBP=80s) and found to have a hemoglobin of 5.9 ( compared to his recent Hgb of 10.4 from 04/06/17). Although the patient has no documented history of liver cirrhosis or esophageal varices, he was started on both Protonix and Octreotide drips in the ED given his strong history chronic alcohol abuse (as well as prophylactic Ceftriaxone). He will be started on IV Albumin Q4hrs x 4 doses overnight as well as gentle IVFs. We will monitor serial CBCs Q4-6hrs and transfuse blood to obtain a goal hemoglobin range of 8- 10, given the patients history of cardiomyopathy. GI has already been consulted (Dr. Kelley) and will evaluate the patient in the morning. He will be kept NPO except for a couple home meds including, Synthroid and Digoxin.
[2017-04-21] MEDS: Sodium Chloride 0.9% 1,000 ML IV SCH (23:00)
[2017-04-22] MEDS: Pantoprazole 40mg/100mL NS 40 MG/100 ML BAG IVPB SCH ×5 (01:00→21:00)
[2017-04-22] MEDS: Albumin Human 5% (12.5 gm/250 ml) IV SCH ×3 (01:00→09:02)
[2017-04-22 05:47] LABS: BASO # 0.01 K/mm3 (0.0-2.0); BASO % 0.2 % (0.0-3.0); EOS % 0.8 % (1.5-5.0); GRAN # 3.67 (1.4-6.5); GRAN % 69.9 % (50.0-68.0); MEAN CELL VOLUME 97.4 fl (80.0-105.0); MEAN CORPUSCULAR HEMOGLOBIN 32.6 pg (25.0-35.0); MEAN CORPUSCULAR HGB CONC 33.5 g/dl (31.0-37.0); MEAN PLATELET VOLUME 10.3 fl (7.0-11.0); MONO # 0.5 (0.1-0.6); MONO % 10.1 % (1.0-6.0); RBC 2.33 10^6/uL (3.5-6.1); RED CELL DISTRIBUTION WIDTH 16.4 % (11.5-14.5); WHITE BLOOD COUNT 5.3 10^3/ul (4.5-11.0)
[2017-04-22 05:52] LABS: HEMOGLOBIN 7.6 g/dL (14.0-18.0)
[2017-04-22 05:56] LABS: ALB/GLOB RATIO 0.8 (1.1-1.8); ALT/SGPT 82 U/L (7-56); AST/SGOT 105 U/L (17-59); BLOOD UREA NITROGEN 8 mg/dL (7-21); CALCIUM 7.5 mg/dL (8.4-10.5); GFR AFRICAN-AMERICAN > 60; GFR NON-AFRICAN AMERICAN > 60; MAGNESIUM 1.9 mg/dL (1.7-2.2)
[2017-04-22] MEDS: Levothyroxine 25 MCG TAB PO SCH (06:17)
--- NOTE | 2017-04-22 07:49 | CP.PCM.PN ---
Subjective - Date & Time of Evaluation Date of Evaluation: 04/22/17 Time of Evaluation: 07:00 - Subjective Subjective: PGY2 Medicine note for Dr. Pacheco Patient seen and examined at bedside. Patient was NPO overnight for EGD this AM. He received 2U PRBC overnight and reported 4 "dark camara" colored BMs. Patient complained of some diffuse abdominal pain. Denied acute complaints of headache, dizziness, chest pain, palpitations, SOB, cough, nausea, vomiting, dysuria, hematuria, pain/swelling in legs bilaterally. Patient stated his last drink was during the first week of March [place] Objective - Vital Signs/Intake and Output Vital Signs (last 24 hours): Temp Pulse Resp BP Pulse Ox 98 F 74 17 91/53 L 100 04/22/17 03:38 04/22/17 07:40 04/22/17 07:40 04/22/17 07:00 04/22/17 07:40 Intake and Output: 04/22/17 04/22/17 06:59 18:59 Intake Total 650 Balance 650 - Medications Medications: Current Medications Albumin Human (Albumin Human 5% (12.5 Gm/250 Ml)) 12.5 gm IV Q4H [facility] Stop: 04/22/17 13:00 Last Admin: 04/22/17 05:00 Dose: 12.5 gm Digoxin (Lanoxin Elixir Soln) 0.125 mg PO DAILY [facility] Pantoprazole Sodium (Protonix 40mg Ivpb) 40 mg in 100 mls @ 20 mls/hr IVPB .Q5H [facility] Last Admin: 04/22/17 06:14 Dose: 20 mls/hr Octreotide Acetate 1,250 mcg/ (Sodium Chloride) 252.5 mls @ 5.05 mls/hr IV .Q24H [facility]; 25 MCG/HR PRN Reason: Protocol Last Admin: 04/21/17 21:18 Dose: 25 mcg/hr, 5.05 mls/hr Ceftriaxone Sodium (Rocephin 1 Gram Ivpb) 1 gm in 100 mls @ 100 mls/hr IVPB DAILY [facility] PRN Reason: Protocol Sodium Chloride (Sodium Chloride 0.9%) 1,000 mls @ 100 mls/hr IV .Q10H [facility] Last Admin: 04/21/17 23:00 Dose: 100 mls/hr Levothyroxine Sodium (Synthroid) 25 mcg PO 0600 [facility] Last Admin: 04/22/17 06:17 Dose: 25 mcg Lorazepam (Ativan) 2 mg IVP Q4H PRN; Protocol PRN Reason: Agitation Last Admin: 04/21/17 23:21 Dose: 2 mg - Labs Labs: 04/22/17 05:00 04/22/17 05:00 PT 15.9 SECONDS (9.4-12.5) H 04/21/17 18:25 INR 1.39 (0.93-1.08) H 04/21/17 18:25 APTT 34.4 Seconds (25.1-36.5) 04/21/17 18:25 - Constitutional Appears: Chronically Ill - Head Exam Head Exam: ATRAUMATIC, NORMAL INSPECTION, NORMOCEPHALIC - Eye Exam Eye Exam: EOMI, PERRL, Scleral icterus. absent: Conjunctival injection Pupil Exam: NORMAL ACCOMODATION - ENT Exam ENT Exam: Mucous Membranes Dry - Neck Exam Neck Exam: Full ROM, Normal Inspection - Respiratory Exam Respiratory Exam: Clear to Ausculation Bilateral, NORMAL BREATHING PATTERN. absent: Accessory Muscle Use, Rales, Rhonchi, Wheezes, Respiratory Distress - Cardiovascular Exam Cardiovascular Exam: Irregular Rhythm, RRR, +S1, +S2 - GI/Abdominal Exam GI & Abdominal Exam: Soft, Tenderness (diffuse to palpation), Normal Bowel Sounds - Rectal Exam Rectal Exam: Deferred - Extremities Exam Extremities Exam: Normal Capillary Refill, Normal Inspection. absent: Pedal Edema, Tenderness - Neurological Exam Neurological Exam: Alert, Awake, Oriented x3 - Psychiatric Exam Psychiatric exam: Normal Affect, Normal Mood - Skin Additional comments: +icteric Assessment and Plan - Assessment and Plan (Free Text) Assessment: 51yo male PMHx dilated cardiomyopathy s/p single chamber ventricular pacemaker placement, chronic atrial fibrillation, alcohol abuse, thrombocytopenia, peptic ulcer disease and depression presented with complaints of abdominal pain and black tarry stools found to be hypotensive and significantly anemic with Hgb of 5.9. Pt admitted to ICU for close HD monitoring. Plan: Neuro -no acute issues -speaking in full sentences and moving all extremities spontaneously -hx etoh abuse, urine etoh <10, ammonia 14 -ativan 2q4prn -[facility] protocol -neurochecks -continue to monitor Cardio -hemodynamically stable this AM -NS @100ml/hr -octreotide drip -s/p 2U PRBC overnight- patient to be transfused 1 more unit this AM -hx Afib continue digoxin Pulm -stable -02 sat>90% -02 NC prn to maintain 02 sat>90% -continue to monitor GI -melena and BRBPR likely secondary to GI bleed -EGD this AM : gastrojejunal anastamosis characterized by deep, circumferential ulceration with clean base at approximately 46cm from the incisors with no evidence of active bleeding. -Protonix gtt -Octreotide gtt discontinued -Carafate oral suspension -Transaminitis 2/2 alcoholic hepatitis -Liquid diet -Rocephin 1gm ivpb qd -Folic acid, Thiamine, Multivitamin daily -CIWA protocol -GI on board Renal -conitnue to monitor renal fcn -BUN/ Cr stable -monitor electrolytes and supplement as needed -strict I&Os -daily weight -monitor UOP Heme -presented with significant anemia hgb 5.9 --> 7.4 this AM after EGD and 2U PRBC -will transfuse 1U PRBC to maintain Hgb 8-9 in light of cardiac hx -Monitor CBC Q6h Endo -hypothyroidism -continue synthroid -maintain bg 140-180 DVT/GI ppx/Diet reviewed Discussed with Dr. Tara Dinh PGY2
--- NOTE | 2017-04-22 08:25 | PN ---
DATE: 04/22/2017 [facility]IF[facility]ON NOTE SUBJECTIVE: Patient is resting in bed with no complaints of shortness of breath, but does have occasional cough. He states that he has some abdominal discomfort especially when he coughs and as noted by the nurse, he had a burgundy stool this morning. The patient is comfortable at this time, note that his blood pressure has been about a systolic of 95 and is being observed closely. He is getting IV fluids and is scheduled for another unit of packed red blood cells. PHYSICAL EXAMINATION: VITAL SIGNS: His temperature is 98, pulse is 75, respirations are 18 and BP is 104/67. SKIN: Warm and dry. HEENT: Head atraumatic, normocephalic. Eyes reactive to light. Ear, nose and throat seemed to be within normal limits. NECK: His neck is supple. No JVD. No thyroid enlargement or lymph nodes. HEART: Has regular rate and rhythm. Normal S1, S2. LUNGS: Reveal good breath sounds bilaterally. ABDOMEN: Soft. Decreased bowel sounds. Mildly tender to palpation. GENITALIA AND RECTAL: Deferred. MUSCULOSKELETAL: No joint deformities. EXTREMITIES: Reveal trace lower extremity edema. NEUROLOGIC: He seemed to be grossly intact. LABORATORY DATA: As far as his laboratories are concerned, his white count is 5.3, hemoglobin is 7.6, hematocrit 22.7 with platelets of 100,000. Patient's sodium is 134, potassium 4.4, chloride 107, CO2 of 21 with a BUN of 8, creatinine of 0.5 and a glucose of 113. IMPRESSION: As far as my impression, this patient has a lower gastrointestinal bleed with severe anemia. Patient has episode of hypotension as well. The patient has a history of peptic ulcer disease, EtOH abuse and cardiomyopathy with an ejection fraction of 35%. He also has a history of atrial fibrillation, has a permanent pacemaker and carries a diagnosis of hypertension. PLAN: As far as our plan, we will continue with IV fluids and follow the patient's blood pressure closely. He is getting albumin IV as well as his digoxin. The patient is on Sandostatin as well as Protonix and is getting Rocephin as an antibiotic. He is also on his Synthroid and is scheduled for a unit of packed red blood cells. We will follow his hemoglobin closely and GI has been consulted. The patient will be followed closely and treat it aggressively along with the other consultants and the primary care doctor. Miller Rahman MD
[2017-04-22] MEDS ORDERED: Propofol 10 mg/ml Inj (20 ML) ONE (08:44)
[2017-04-22] MEDS ORDERED: Lidocaine 1% Inj (20ml) ONE (08:44)
[2017-04-22] MEDS ORDERED: Etomidate 40 MG/20 ML ML IV ONE (08:44)
[2017-04-22] MEDS ORDERED: Benzocaine/Butamben/Tetracai 14-2-2% TOP Spray TOP ONE (08:51)
--- NOTE | 2017-04-22 08:51 | RAD ---
HISTORY: gi bleed, abd pain COMPARISON: 03/29/2017 FINDINGS: LUNGS: No active pulmonary disease. PLEURA: No significant pleural effusion identified, no pneumothorax apparent. CARDIOVASCULAR: Mild cardiomegaly. Single lead pacemaker OSSEOUS STRUCTURES: No significant abnormalities. VISUALIZED UPPER ABDOMEN: Normal. OTHER FINDINGS: None. IMPRESSION: No active disease.
[2017-04-22] MEDS ORDERED: Phenylephrine 10 mg/ml Inj ONE (09:10)
[2017-04-22] MEDS ORDERED: Naloxone 0.4 mg/ml Inj (Adult) ONE (09:41)
--- NOTE | 2017-04-22 10:26 | CP.PCM.CON ---
<Ino Caro - Last Filed: 04/22/17 10:28> History of Present Illness - History of Present Illness History of Present Illness: Initial PGY4 Consult note Reason for consultation: Gi bleed Elvis Ybarra is a 51 year old male with history of alcohol abuse, ETOH Hepatitis 2014, Biventricular systolic dysfunction and dilated cardiomyopathy, tachy-viki syndrome s/p pacer, Atrial fibrillation, upper GI bleed 03/2015, Felicity -en-Y bypass complicated by two perforations () presenting bright red blood per rectum. Pt states that he awoke with slight lower abd pain in the lower quadrants B/L. He then had a dark BM and then proceeded to have BRBPR x 4-5 times. He came to the ER for further evaluation. He denies any nausea, vomitng, hematemesis or coffee-ground emesis. He did not have an addition BM in the ER. He was initially hypotensive in the ER. He was was started on PPI drip and octreotide. He was moved to the ICU overnight. Overnight he had 2 episodes of maroon BM. he was recently discharged 1 week ago for rapid a-fib and alcoholic hepatitis. Prior EGD 03/2015 due to melena showed erythema at gastric pouch, gastrojejunal anastamosis clean-based 6mm ulcer, and normal alimentary limb. He reports a colonoscopy > 5y ago by Dr. Schmid, findings unknown Family- denies colon cancer, Father- Liver cancer Social- case of beer daily (24-pack) x20 years, denies illicit drug use Surgery- Felicity-en-Y complicated by two perforations, pacer ENDO hx: EGD 2015 marginal ulcer; colonoscopy > 5 years ago, findings unknown ROS: 12 point ROS conducted neg other than above Past Patient History - Infectious Disease Hx of Infectious Diseases: None - Tetanus Immunizations Tetanus Immunization: Unknown - Past Medical History & Family History Past Medical History?: Yes - Past Social History Smoking Status: Former Smoker - CARDIAC Hx Cardiac Disorders: Yes Hx Pacemaker: Yes - PULMONARY Hx Respiratory Disorders: Yes (shortness of breath,CIGARETTES AND CIGAR SMOKER.OCCASIONAL) - NEUROLOGICAL Hx Neurological Disorder: Yes - HEENT Hx HEENT Problems: Yes (eyeglasses) Other/Comment: 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 related noise exposure - RENAL Hx Chronic Kidney Disease: No - ENDOCRINE/METABOLIC Hx Endocrine Disorders: No - HEMATOLOGICAL/ONCOLOGICAL Hx Cancer: No - INTEGUMENTARY Hx Dermatological Problems: No Other/Comment: tatoo - MUSCULOSKELETAL/RHEUMATOLOGICAL Hx Musculoskeletal Disorders: Yes (RIB FX) Hx Back Pain: Yes Hx Falls: Yes Hx Fractures: Yes (Rib) Other/Comment: edema to lower extremeties - GASTROINTESTINAL Hx Gastrointestinal Disorders: Yes (ACUTE PANCREATITIS) Hx Diverticulitis: Yes Hx Liver Failure: Yes (Abnormal Liver function test) Hx Pancreatitis: Yes - GENITOURINARY/GYNECOLOGICAL Hx Genitourinary Disorders: No - PSYCHIATRIC Hx Psychophysiologic Disorder: Yes Hx Anxiety: Yes Hx Depression: Yes Hx Substance Use: No Other/Comment: alcohol abuse and withdrawal/ delirium.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 [employer] - SURGICAL HISTORY Hx Mastectomy: No - ANESTHESIA Hx Anesthesia: Yes Hx Anesthesia Reactions: No Hx Malignant Hyperthermia: No Meds Allergies/Adverse Reactions: Allergies Allergy/AdvReac Type Severity Reaction Status Date / Time No Known Allergies Allergy Verified 04/06/17 23:28 - Medications Medications: Current Medications Albumin Human (Albumin Human 5% (12.5 Gm/250 Ml)) 12.5 gm IV Q4H [facility] Stop: 04/22/17 13:00 Last Admin: 04/22/17 09:02 Dose: 12.5 gm Digoxin (Lanoxin Elixir Soln) 0.125 mg PO DAILY [facility] Pantoprazole Sodium (Protonix 40mg Ivpb) 40 mg in 100 mls @ 20 mls/hr IVPB .Q5H [facility] Last Admin: 04/22/17 06:14 Dose: 20 mls/hr Ceftriaxone Sodium (Rocephin 1 Gram Ivpb) 1 gm in 100 mls @ 100 mls/hr IVPB DAILY [facility] PRN Reason: Protocol Sodium Chloride (Sodium Chloride 0.9%) 1,000 mls @ 100 mls/hr IV .Q10H [facility] Last Admin: 04/21/17 23:00 Dose: 100 mls/hr Levothyroxine Sodium (Synthroid) 25 mcg PO 0600 [facility] Last Admin: 04/22/17 06:17 Dose: 25 mcg Lorazepam (Ativan) 2 mg IVP Q4H PRN; Protocol PRN Reason: Agitation Last Admin: 04/21/17 23:21 Dose: 2 mg Sucralfate (Carafate Oral Susp) 1 gm PO 0630,1130,1630,2200 [facility] Physical Exam - Constitutional Appears: Well, No Acute Distress - Head Exam Head Exam: ATRAUMATIC, NORMOCEPHALIC - Eye Exam Eye Exam: Scleral icterus - ENT Exam ENT Exam: Mucous Membranes Moist, Normal Exam - Neck Exam Neck exam: Positive for: Normal Inspection - Respiratory Exam Respiratory Exam: Clear to Auscultation Bilateral, NORMAL BREATHING PATTERN. absent: Prolonged Expiratory Phase, Rales, Rhonchi, Wheezes - Cardiovascular Exam Cardiovascular Exam: Irregular Rhythm - GI/Abdominal Exam GI & Abdominal Exam: Normal Bowel Sounds, Soft. absent: Distended, Firm, Guarding, Hernia - Rectal Exam Rectal Exam: Bloody Stool. absent: Black Stool, Hemorrhoids - Extremities Exam Extremities exam: Positive for: pedal edema. Negative for: joint swelling - Neurological Exam Neurological exam: Alert, CN II-XII Intact, Oriented x3 - Psychiatric Exam Psychiatric exam: Normal Affect, Normal Mood - Skin Skin Exam: Dry, Intact, Warm Additional comments: juandice Results - Vital Signs Recent Vital Signs: Last Vital Signs Temp 98.5 F 04/22/17 04:12 Pulse 89 04/22/17 08:30 Resp 28 H 04/22/17 08:30 BP 114/65 04/22/17 08:00 Pulse Ox 99 04/22/17 08:30 - Labs Result Diagrams: 04/22/17 05:00 04/22/17 05:00 Labs: Laboratory Results - last 24 hr 04/21/17 04/22/17 04/22/17 21:18 05:00 05:00 WBC 5.3 RBC 2.33 L Hgb 7.6 L Hct 22.7 L MCV 97.4 D MCH 32.6 MCHC 33.5 RDW 16.4 H Plt Count 100 L MPV 10.3 Gran % 69.9 H Lymph % (Auto) 19.0 L Dundy % (Auto) 10.1 H Eos % (Auto) 0.8 L Baso % (Auto) 0.2 Gran # 3.67 Lymph # (Auto) 1.0 L Dundy # (Auto) 0.5 Eos # (Auto) 0.0 Baso # (Auto) 0.01 Sodium 134 Potassium 4.4 Chloride 107 Carbon Dioxide 21 Anion Gap 11 BUN 8 Creatinine 0.5 L Est GFR ( Amer) > 60 Est GFR (Non-Af Amer) > 60 Random Glucose 133 H Calcium 7.5 L Phosphorus 3.2 Magnesium 1.9 Total Bilirubin 6.5 H AST 105 H ALT 82 H Alkaline Phosphatase 85 Total Protein 4.6 L Albumin 2.0 L Globulin 2.6 Albumin/Globulin Ratio 0.8 L TSH 3rd Generation Urine Color Yellow Urine Appearance Clear Urine pH 7.0 Ur Specific [place] 1.010 Urine Protein Trace H Urine Glucose (UA) Negative Urine Ketones Negative Urine Blood Negative Urine Nitrate Negative Urine Bilirubin Moderate H Urine Urobilinogen 0.2 Ur Leukocyte Esterase Negative Urine RBC 0 - 2 Urine WBC 1 - 3 Ur Epithelial Cells None Amorphous Sediment Few Urine Bacteria Many Coarse Granular Casts Trace H Urine Other Uyeast 04/22/17 05:00 WBC RBC Hgb Hct MCV MCH MCHC RDW Plt Count MPV Gran % Lymph % (Auto) Dundy % (Auto) Eos % (Auto) Baso % (Auto) Gran # Lymph # (Auto) Dundy # (Auto) Eos # (Auto) Baso # (Auto) Sodium Potassium Chloride Carbon Dioxide Anion Gap BUN Creatinine Est GFR ( Amer) Est GFR (Non-Af Amer) Random Glucose Calcium Phosphorus Magnesium Total Bilirubin AST ALT Alkaline Phosphatase Total Protein Albumin Globulin Albumin/Globulin Ratio TSH 3rd Generation 1.33 Urine Color Urine Appearance Urine pH Ur Specific [place] Urine Protein Urine Glucose (UA) Urine Ketones Urine Blood Urine Nitrate Urine Bilirubin Urine Urobilinogen Ur Leukocyte Esterase Urine RBC Urine WBC Ur Epithelial Cells Amorphous Sediment Urine Bacteria Coarse Granular Casts Urine Other Assessment & Plan - Assessment and Plan (Free Text) Assessment: 51 year old male with history of alcohol abuse, ETOH Hepatitis, Biventricular systolic dysfunction and dilated cardiomyopathy, tachy-viki syndrome s/p pacer , Atrial fibrillation, upper GI bleed 03/2015, Felicity-en-Y bypass complicated by two perforations () presenting with Rectal bleeding. Prior EGD 03/2015 due to melena showed erythema at gastric pouch, gastrojejunal anastamosis clean-based 6mm ulcer, and normal alimentary limb. S/P EGD POD 0: Partially circumferential anastomatic ulceration which was not currently bleeding, normal alimentary limb. Partially circumferential anastomatic ulceration Normocytic Anemia GI bleed, etiology, likely 2/2 to the above Alcoholic hepatitis, DF: Hx of alcohol abuse, last drink 1st week of Mar 2017 Plan: >elevated LFTs in setting of alcohol hepatitis, trending down, DF <32 > continue to trend LFTS >continue PPI drip for 24 hrs, transitions to PPI BID tomorrow > d/c octreotide >carafate >start clears today >supportive care: pain control, antiemetics, PPI >counselled on alcohol cessation >keep Hgb ~ [address] Kelley <Oscar Kelley - Last Filed: 04/22/17 12:43> Meds - Medications Medications: Current Medications Albumin Human (Albumin Human 5% (12.5 Gm/250 Ml)) 12.5 gm IV Q4H [facility] Stop: 04/22/17 13:00 Last Admin: 04/22/17 09:02 Dose: 12.5 gm Digoxin (Lanoxin Elixir Soln) 0.125 mg PO DAILY [facility] Last Admin: 04/22/17 11:26 Dose: 0.125 mg Folic Acid (Folic Acid) 1 mg IM DAILY [facility] Last Admin: 04/22/17 11:09 Dose: 1 mg Pantoprazole Sodium (Protonix 40mg Ivpb) 40 mg in 100 mls @ 20 mls/hr IVPB .Q5H [facility] Last Admin: 04/22/17 11:09 Dose: 20 mls/hr Ceftriaxone Sodium (Rocephin 1 Gram Ivpb) 1 gm in 100 mls @ 100 mls/hr IVPB DAILY [facility] PRN Reason: Protocol Last Admin: 04/22/17 10:46 Dose: 100 mls/hr Sodium Chloride (Sodium Chloride 0.9%) 1,000 mls @ 100 mls/hr IV .Q10H [facility] Last Admin: 04/22/17 11:12 Dose: 100 mls/hr Levothyroxine Sodium (Synthroid) 25 mcg PO 0600 [facility] Last Admin: 04/22/17 06:17 Dose: 25 mcg Lorazepam (Ativan) 2 mg IVP Q4H PRN; Protocol PRN Reason: Agitation Last Admin: 04/21/17 23:21 Dose: 2 mg Multivitamins/Vitamin C (Multi-Delyn Liquid) 15 ml PO 0800 [facility] Last Admin: 04/22/17 11:10 Dose: 15 ml Sucralfate (Carafate Oral Susp) 1 gm PO 0630,1130,1630,2200 [facility] Last Admin: 04/22/17 11:10 Dose: 1 gm Thiamine HCl (Vitamin B1 Inj) 100 mg IM DAILY [facility] Last Admin: 04/22/17 11:01 Dose: 100 mg Results - Vital Signs Recent Vital Signs: Last Vital Signs Temp 98.5 F 04/22/17 04:12 Pulse 67 04/22/17 10:20 Resp 16 04/22/17 10:20 BP 103/63 04/22/17 09:00 Pulse Ox 100 04/22/17 10:20 - Labs Result Diagrams: 04/22/17 11:20 04/22/17 05:00 Labs: Laboratory Results - last 24 hr 04/21/17 04/22/17 04/22/17 21:18 05:00 05:00 WBC 5.3 RBC 2.33 L Hgb 7.6 L Hct 22.7 L MCV 97.4 D MCH 32.6 MCHC 33.5 RDW 16.4 H Plt Count 100 L MPV 10.3 Gran % 69.9 H Lymph % (Auto) 19.0 L Dundy % (Auto) 10.1 H Eos % (Auto) 0.8 L Baso % (Auto) 0.2 Gran # 3.67 Lymph # (Auto) 1.0 L Dundy # (Auto) 0.5 Eos # (Auto) 0.0 Baso # (Auto) 0.01 Sodium 134 Potassium 4.4 Chloride 107 Carbon Dioxide 21 Anion Gap 11 BUN 8 Creatinine 0.5 L Est GFR ( Amer) > 60 Est GFR (Non-Af Amer) > 60 Random Glucose 133 H Calcium 7.5 L Phosphorus 3.2 Magnesium 1.9 Total Bilirubin 6.5 H AST 105 H ALT 82 H Alkaline Phosphatase 85 Total Protein 4.6 L Albumin 2.0 L Globulin 2.6 Albumin/Globulin Ratio 0.8 L TSH 3rd Generation Urine Color Yellow Urine Appearance Clear Urine pH 7.0 Ur Specific [place] 1.010 Urine Protein Trace H Urine Glucose (UA) Negative Urine Ketones Negative Urine Blood Negative Urine Nitrate Negative Urine Bilirubin Moderate H Urine Urobilinogen 0.2 Ur Leukocyte Esterase Negative Urine RBC 0 - 2 Urine WBC 1 - 3 Ur Epithelial Cells None Amorphous Sediment Few Urine Bacteria Many Coarse Granular Casts Trace H Urine Other Uyeast 04/22/17 04/22/17 05:00 11:20 WBC 4.9 RBC 2.22 L Hgb 7.4 L Hct 21.7 L MCV 97.7 MCH 33.3 MCHC 34.1 RDW 17.0 H Plt Count 90 L MPV 10.7 Gran % Lymph % (Auto) Dundy % (Auto) Eos % (Auto) Baso % (Auto) Gran # Lymph # (Auto) Dundy # (Auto) Eos # (Auto) Baso # (Auto) Sodium Potassium Chloride Carbon Dioxide Anion Gap BUN Creatinine Est GFR ( Amer) Est GFR (Non-Af Amer) Random Glucose Calcium Phosphorus Magnesium Total Bilirubin AST ALT Alkaline Phosphatase Total Protein Albumin Globulin Albumin/Globulin Ratio TSH 3rd Generation 1.33 Urine Color Urine Appearance Urine pH Ur Specific [place] Urine Protein Urine Glucose (UA) Urine Ketones Urine Blood Urine Nitrate Urine Bilirubin Urine Urobilinogen Ur Leukocyte Esterase Urine RBC Urine WBC Ur Epithelial Cells Amorphous Sediment Urine Bacteria Coarse Granular Casts Urine Other Attending/Attestation - Attestation I have personally seen and examined this patient.: Yes I have fully participated in the care of the patient.: Yes I have reviewed all pertinent clinical information: Yes Notes (Text): 04/22/17 12:34 I have seen and examined patient with GI fellow. Agree with above documentation with the following additions. In brief, this is a 51 year old male with history of ETOH abuse (last drink 3 weeks ago as per patient), atrial fibrillation s/p PPM, obesity s/p felicity-en-y gastric bypass complicated requiring revision, dilated cardiomyopathy who presents to hospital with complaint of rectal bleeding which started yesterday. He describes having mild LUQ/LLQ pain, 3/10 intensity followed by 4-5 episodes of rectal bleeding. He denies nausea, vomiting, fever/chills, weight loss, or NSAID use. On arrival to hospital he was found to be severely anemic along with hypotensive and was transferred to critical care unit. Overnight he had two episodes of maroon colored stool. He had an EGD in 2016 which showed an anastomotic ulcer and colonoscopy over 5 years ago (results not known). Additional physical examination: Abdomen: no palpable hepato/splenomegaly Atrial fibrillation s/p PPM Dilated cardiomyopathy Obesity s/p felicity-en-y gastric bypass with history of anastomotic ulcer ETOH abuse, ongoing Transaminitis Abdominal pain, rectal bleeding Severe anemia posing threat to patient life requiring critical care - NPO - Continue to monitor H/H, s/p 2 units PRBC transfusion - Continue with IV PPI and octreotide infusion therapy - Continue to monitor LFTs, patient not candidate for steroid therapy for ETOH hepatitis given DF<32 - ETOH cessation counseling - Will plan for urgent EGD today given clinical presentation. Further management pending results of endoscopic evaluation and patient clinical progress.
[2017-04-22] MEDS ORDERED: Thiamine 100 mg/ml Inj IM SCH (10:30)
[2017-04-22] MEDS ORDERED: Multi Vitamins 15 mL UD Oral Solution PO SCH (10:33)
[2017-04-22] MEDS: cefTRIAXone 1 gm 1 GM/100 ML BAG IVPB SCH (10:46)
[2017-04-22] MEDS: Sucralfate 1 gm/10 ml Oral Susp UD PO SCH ×3 (11:10→22:04)
[2017-04-22] MEDS: Sodium Chloride 0.9% 1,000 ML IV SCH (11:12)
[2017-04-22] MEDS: Digoxin 0.05 mg/mL Elixir 5mL PO SCH (11:26)
[2017-04-22 11:41] LABS: MEAN CELL VOLUME 97.7 fl (80.0-105.0); MEAN CORPUSCULAR HEMOGLOBIN 33.3 pg (25.0-35.0); MEAN CORPUSCULAR HGB CONC 34.1 g/dl (31.0-37.0); MEAN PLATELET VOLUME 10.7 fl (7.0-11.0); RBC 2.22 10^6/uL (3.5-6.1); WHITE BLOOD COUNT 4.9 10^3/ul (4.5-11.0)
[2017-04-22 12:11] LABS: HEMOGLOBIN 7.4 g/dL (14.0-18.0)
--- NOTE | 2017-04-22 14:42 | CARD ---
APPROVED REPORT EKG Measurement Heart [id number] <Conclusion> Electronic ventricular pacemaker
[2017-04-22] MEDS: guaiFENesin DM 200 mg-20 mg/10 ml UD PO PRN (17:50)
[2017-04-22 19:27] LABS: BASO # 0.01 K/mm3 (0.0-2.0); BASO % 0.2 % (0.0-3.0); EOS # 0.1 (0.0-0.7); EOS % 0.8 % (1.5-5.0); GRAN # 4.44 (1.4-6.5); GRAN % 72.5 % (50.0-68.0); HEMOGLOBIN 8.3 g/dL (14.0-18.0); LYMPH % 16.2 % (22.0-35.0); MEAN CORPUSCULAR HEMOGLOBIN 32.4 pg (25.0-35.0); MEAN CORPUSCULAR HGB CONC 33.1 g/dl (31.0-37.0); MONO # 0.6 (0.1-0.6); MONO % 10.3 % (1.0-6.0); RBC 2.56 10^6/uL (3.5-6.1); RED CELL DISTRIBUTION WIDTH 17.8 % (11.5-14.5); WHITE BLOOD COUNT 6.1 10^3/ul (4.5-11.0)
[2017-04-22] MEDS ORDERED: Hydrocortisone 2.5% Rectal Cream(30 gm) PR STA (20:53)
[2017-04-23 02:17] LABS: MEAN CELL VOLUME 97.1 fl (80.0-105.0); MEAN CORPUSCULAR HEMOGLOBIN 33.1 pg (25.0-35.0); MEAN CORPUSCULAR HGB CONC 34.1 g/dl (31.0-37.0); MEAN PLATELET VOLUME 9.8 fl (7.0-11.0); RBC 2.39 10^6/uL (3.5-6.1); RED CELL DISTRIBUTION WIDTH 17.5 % (11.5-14.5); WHITE BLOOD COUNT 4.5 10^3/ul (4.5-11.0)
[2017-04-23 03:03] LABS: HEMOGLOBIN 7.9 g/dL (14.0-18.0)
[2017-04-23] MEDS: guaiFENesin DM 200 mg-20 mg/10 ml UD PO PRN (03:36)
[2017-04-23] MEDS: Levothyroxine 25 MCG TAB PO SCH (06:01)
[2017-04-23 06:34] LABS: BASO # 0.01 K/mm3 (0.0-2.0); BASO % 0.2 % (0.0-3.0); EOS % 0.7 % (1.5-5.0); GRAN # 3.75 (1.4-6.5); HEMOGLOBIN 8.2 g/dL (14.0-18.0); LYMPH # 1.2 (1.2-3.4); LYMPH % 21.1 % (22.0-35.0); MEAN CELL VOLUME 97.2 fl (80.0-105.0); MEAN CORPUSCULAR HEMOGLOBIN 33.1 pg (25.0-35.0); MEAN PLATELET VOLUME 10.3 fl (7.0-11.0); MONO # 0.6 (0.1-0.6); RBC 2.48 10^6/uL (3.5-6.1); RED CELL DISTRIBUTION WIDTH 17.4 % (11.5-14.5); WHITE BLOOD COUNT 5.5 10^3/ul (4.5-11.0)
[2017-04-23 06:51] LABS: ALB/GLOB RATIO 0.9 (1.1-1.8); ALBUMIN 2.2 g/dL (3.0-4.8); ALT/SGPT 88 U/L (7-56); AST/SGOT 135 U/L (17-59); BLOOD UREA NITROGEN 5 mg/dL (7-21); GFR AFRICAN-AMERICAN > 60; GFR NON-AFRICAN AMERICAN > 60; MAGNESIUM 1.7 mg/dL (1.7-2.2)
[2017-04-23] MEDS: Sucralfate 1 gm/10 ml Oral Susp UD PO SCH ×4 (07:00→22:02)
[2017-04-23] MEDS: Pantoprazole 40mg/100mL NS 40 MG/100 ML BAG IVPB SCH ×4 (07:00→23:52)
--- NOTE | 2017-04-23 09:07 | RAD ---
HISTORY: r/o infiltrate vs effusion COMPARISON: 04/21/2017 FINDINGS: LUNGS: No active pulmonary disease. PLEURA: No significant pleural effusion identified, no pneumothorax apparent. CARDIOVASCULAR: Normal. OSSEOUS STRUCTURES: No significant abnormalities. VISUALIZED UPPER ABDOMEN: Normal. OTHER FINDINGS: Single lead pacemaker IMPRESSION: No active disease.
[2017-04-23] MEDS ORDERED: Metoprolol 1 mg/ml Inj IVP ONE (09:56)
[2017-04-23] MEDS: cefTRIAXone 1 gm 1 GM/100 ML BAG IVPB SCH (10:11)
[2017-04-23] MEDS: Digoxin 0.05 mg/mL Elixir 5mL PO SCH (10:28)
[2017-04-23] MEDS ORDERED: Morphine 2 mg/ml ISec IVP ONE (10:46)
[2017-04-23] MEDS ORDERED: Morphine 5 MG/ML SYRINGE IVP ONE (11:00)
--- NOTE | 2017-04-23 12:05 | CP.PCM.PN ---
Subjective - Date & Time of Evaluation Date of Evaluation: 04/23/17 Time of Evaluation: 10:30 - Subjective Subjective: PGY2 Medicine note for Dr. Pacheco Patient seen and examined at bedside. Patient s/p 3U PRBC. Patient is aware of EGD results from yesterday. Complained of some back pain and sciatica this AM but reported his abdominal pain has improved. Continues complaining of nonproductive cough. Tolerated liquid diet. Had 1 BM that was dark colored. Denied acute complaints of headache, dizziness, chest pain, palpitations, SOB, nausea, vomiting, dysuria, hematuria, pain in legs bilaterally. Objective - Vital Signs/Intake and Output Vital Signs (last 24 hours): Temp Pulse Resp BP Pulse Ox 98.8 F 130 H 51 H 128/82 99 04/23/17 08:31 04/23/17 10:30 04/23/17 10:30 04/23/17 10:30 04/23/17 10:30 - Medications Medications: Current Medications Atenolol (Tenormin) 25 mg PO DAILY [facility] Benzonatate (Tessalon Perles) 100 mg PO TID PRN PRN Reason: Cough Last Admin: 04/23/17 06:01 Dose: 100 mg Digoxin (Lanoxin Elixir Soln) 0.125 mg PO DAILY [facility] Last Admin: 04/23/17 10:28 Dose: 0.125 mg Folic Acid (Folic Acid) 1 mg PO DAILY [facility] Last Admin: 04/23/17 10:11 Dose: 1 mg Guaifenesin/Dextromethorphan (Robitussin Dm) 10 ml PO Q4H PRN PRN Reason: Cough Last Admin: 04/23/17 03:36 Dose: 10 ml Pantoprazole Sodium (Protonix 40mg Ivpb) 40 mg in 100 mls @ 20 mls/hr IVPB .Q5H [facility] Last Admin: 04/23/17 07:00 Dose: 20 mls/hr Ceftriaxone Sodium (Rocephin 1 Gram Ivpb) 1 gm in 100 mls @ 100 mls/hr IVPB DAILY [facility] PRN Reason: Protocol Last Admin: 04/23/17 10:11 Dose: 100 mls/hr Levothyroxine Sodium (Synthroid) 25 mcg PO 0600 [facility] Last Admin: 04/23/17 06:01 Dose: 25 mcg Lorazepam (Ativan) 2 mg IVP Q4H PRN; Protocol PRN Reason: Agitation Last Admin: 04/22/17 22:10 Dose: 2 mg Midodrine (Proamatine) 10 mg PO TID [facility] Multivitamins/Minerals (Therapeutic-M Tab) 1 tab PO 0800 [facility] Sucralfate (Carafate Oral Susp) 1 gm PO 0630,1130,1630,2200 [facility] Last Admin: 04/23/17 07:00 Dose: 1 gm Thiamine HCl (Vitamin B1 Tab) 100 mg PO DAILY [facility] Last Admin: 04/23/17 10:11 Dose: 100 mg Tramadol HCl (Ultram) 50 mg PO TID PRN PRN Reason: Pain, moderate (4-7) - Labs Labs: 04/23/17 06:00 04/23/17 06:00 PT 15.9 SECONDS (9.4-12.5) H 04/21/17 18:25 INR 1.39 (0.93-1.08) H 04/21/17 18:25 APTT 34.4 Seconds (25.1-36.5) 04/21/17 18:25 - Constitutional Appears: Chronically Ill, Other (icteric) - Head Exam Head Exam: ATRAUMATIC, NORMAL INSPECTION, NORMOCEPHALIC - Eye Exam Eye Exam: EOMI, PERRL, Scleral icterus Pupil Exam: NORMAL ACCOMODATION - ENT Exam ENT Exam: Mucous Membranes Moist - Neck Exam Neck Exam: Full ROM, Normal Inspection - Respiratory Exam Respiratory Exam: Clear to Ausculation Bilateral, NORMAL BREATHING PATTERN. absent: Accessory Muscle Use, Rales, Rhonchi, Wheezes, Respiratory Distress - Cardiovascular Exam Cardiovascular Exam: Tachycardia, Irregular Rhythm, +S1, +S2. absent: Murmur - GI/Abdominal Exam GI & Abdominal Exam: Soft, Normal Bowel Sounds. absent: Firm, Guarding, Rigid, Tenderness - Extremities Exam Extremities Exam: Pedal Edema (+2 B/l). absent: Tenderness - Back Exam Back Exam: NORMAL INSPECTION. absent: rash noted - Neurological Exam Neurological Exam: Alert, Awake, CN II-XII Intact, Oriented x3 - Psychiatric Exam Psychiatric exam: Normal Affect, Normal Mood - Skin Skin Exam: Dry, Intact, Warm. absent: Normal Color (icteric) Assessment and Plan - Assessment and Plan (Free Text) Assessment: 51yo male PMHx dilated cardiomyopathy s/p single chamber ventricular pacemaker placement, chronic atrial fibrillation, alcohol abuse, thrombocytopenia, peptic ulcer disease and depression presented with complaints of abdominal pain and black tarry stools found to be hypotensive and significantly anemic with Hgb of 5.9. Pt admitted to ICU for close HD monitoring. Plan: Neuro -no acute issues -speaking in full sentences and moving all extremities spontaneously -hx etoh abuse, urine etoh <10, ammonia 14 -ativan 2q4prn -[facility] protocol -neurochecks -continue to monitor Cardio -tachycardic and SBP was 90-100 this AM -Started on Midodrine 10mg po tid -Given lopressor 1 time today and started on atenolol for tomorrow 2 -hx Afib continue digoxin Pulm -stable -02 sat>90% -02 NC prn to maintain 02 sat>90% -continue to monitor GI -melena and BRBPR likely secondary to GI bleed -EGD 04/22: gastrojejunal anastamosis characterized by deep, circumferential ulceration with clean base at approximately 46cm from the incisors with no evidence of active bleeding. -Protonix gtt -s/p 3U PRBC total -Carafate oral suspension -Transaminitis 2/2 alcoholic hepatitis -Full Liquid diet -Rocephin 1gm ivpb qd -Folic acid, Thiamine, Multivitamin daily -[facility] protocol -GI on board Renal -conitnue to monitor renal fcn -BUN/ Cr stable -monitor electrolytes and supplement as needed -strict I&Os -daily weight -monitor UOP Heme -presented with significant anemia hgb 5.9 --> 7.4 --> 8.2 -maintain Hgb 8-9 in light of cardiac hx -s/p 3U PRBC total -Monitor CBC Q6h Endo -hypothyroidism -continue synthroid -maintain bg 140-180 MSK -hx of sciatica -given 1 dose morphine today -Ultram tid prn for moderate pain DVT/GI ppx/Diet reviewed Discussed with Dr. Tara Dinh PGY2
[2017-04-23 13:30] LABS: INR 1.37 (0.93-1.08); PROTHROMBIN TIME 15.8 SECONDS (9.4-12.5)
--- NOTE | 2017-04-23 13:42 | PN ---
DATE: 04/23/2017 RN L AND D NOTE SUBJECTIVE: Patient is resting in bed. No complaints of increased shortness of breath, cough, wheezing, chest congestion. Patient states that cough medicine and medication to diurese him yesterday, his cough improved. He has no bloody bowel movements this morning and hemodynamically, he seems to be stable. PHYSICAL EXAMINATION: VITAL SIGNS: His temperature is 98.8, his pulse is 93, respirations are 18 and BP is 114/81. SKIN: Warm and dry. HEENT: Head atraumatic, normocephalic. Eyes reactive to light. Ear, nose and throat seemed to be within normal limits. NECK: Supple. No JVD. No thyroid enlargement, no lymph nodes. HEART: Has regular rate and rhythm. Normal S1, S2. LUNGS: Reveal good breath sounds bilaterally. ABDOMEN: Soft. Decreased bowel sounds. GENITALIA AND RECTAL: Deferred. MUSCULOSKELETAL: No joint deformities. EXTREMITIES: Reveal trace lower extremity edema. NEUROLOGIC: He seemed to be grossly intact. LABORATORY DATA: As far as his laboratories are concerned, his white count is 5.5, hemoglobin is 8.2, hematocrit 24.1 with platelets of 84,000. Sodium is 137, potassium 3.7, chloride 107, CO2 of 23 with a BUN of 5, creatinine of 0.5 and a glucose of 97. Chest x-ray reveals no infiltrates, that is an unofficial reading. IMPRESSION: As far as my impression, patient has gastrointestinal bleed on an endoscopy, it was noted that he does have a peptic ulcer, but no bleeding at this time. He is presenting with severe anemia and episodes of low blood pressure, which seems to be stabilized this morning. The patient has history of EtOH abuse as well as cardiomyopathy and a history of atrial fibrillation and a permanent pacemaker. He carries a long-time diagnosis of hypertension. PLAN: As far as our plan, we will continue IV fluids, to continue to monitor him closely and patient will continue on his Sandostatin as well as his Protonix; Rocephin, antibiotics; Synthroid. We will continue to treat aggressively along with the other consultants and the primary care doctor. Miller Rahman MD
--- NOTE | 2017-04-23 14:04 | CP.PCM.PN ---
<Ino Caro - Last Filed: 04/23/17 14:06> Subjective - Date & Time of Evaluation Date of Evaluation: 04/23/17 Time of Evaluation: 11:00 - Subjective Subjective: PGY4 GI Follow-up Pt seen and examined bedside No overnight events No reports of additional GI bleed BP stable overnight ROS 10 point ROS conducted Neg other than above Objective - Vital Signs/Intake and Output Vital Signs (last 24 hours): Temp Pulse Resp BP Pulse Ox 98.8 F 130 H 51 H 128/82 99 04/23/17 08:31 04/23/17 10:30 04/23/17 10:30 04/23/17 10:30 04/23/17 10:30 - Medications Medications: Current Medications Atenolol (Tenormin) 25 mg PO DAILY [facility] Last Admin: 04/23/17 12:18 Dose: Not Given Benzonatate (Tessalon Perles) 100 mg PO TID PRN PRN Reason: Cough Last Admin: 04/23/17 06:01 Dose: 100 mg Digoxin (Lanoxin Elixir Soln) 0.125 mg PO DAILY [facility] Last Admin: 04/23/17 10:28 Dose: 0.125 mg Folic Acid (Folic Acid) 1 mg PO DAILY [facility] Last Admin: 04/23/17 10:11 Dose: 1 mg Guaifenesin/Dextromethorphan (Robitussin Dm) 10 ml PO Q4H PRN PRN Reason: Cough Last Admin: 04/23/17 03:36 Dose: 10 ml Pantoprazole Sodium (Protonix 40mg Ivpb) 40 mg in 100 mls @ 20 mls/hr IVPB .Q5H [facility] Stop: 04/24/17 20:00 Last Admin: 04/23/17 12:36 Dose: 20 mls/hr Levothyroxine Sodium (Synthroid) 25 mcg PO 0600 [facility] Last Admin: 04/23/17 06:01 Dose: 25 mcg Lorazepam (Ativan) 2 mg IVP Q4H PRN; Protocol PRN Reason: Agitation Last Admin: 04/22/17 22:10 Dose: 2 mg Midodrine (Proamatine) 10 mg PO TID [facility] Last Admin: 04/23/17 11:21 Dose: 10 mg Multivitamins/Minerals (Therapeutic-M Tab) 1 tab PO 0800 [facility] Sucralfate (Carafate Oral Susp) 1 gm PO 0630,1130,1630,2200 [facility] Last Admin: 04/23/17 12:24 Dose: 1 gm Thiamine HCl (Vitamin B1 Tab) 100 mg PO DAILY [facility] Last Admin: 04/23/17 10:11 Dose: 100 mg Tramadol HCl (Ultram) 50 mg PO TID PRN PRN Reason: Pain, moderate (4-7) - Labs Labs: 04/23/17 06:00 04/23/17 06:00 PT 15.8 SECONDS (9.4-12.5) H 04/23/17 13:00 INR 1.37 (0.93-1.08) H 04/23/17 13:00 APTT 34.4 Seconds (25.1-36.5) 04/21/17 18:25 - Constitutional Appears: Well, No Acute Distress - Head Exam Head Exam: ATRAUMATIC, NORMOCEPHALIC - Eye Exam Eye Exam: Scleral icterus - Neck Exam Neck Exam: Normal Inspection - Respiratory Exam Respiratory Exam: Clear to Ausculation Bilateral, NORMAL BREATHING PATTERN. absent: Rales, Rhonchi, Wheezes, Respiratory Distress - Cardiovascular Exam Cardiovascular Exam: REGULAR RHYTHM, +S1, +S2 - GI/Abdominal Exam GI & Abdominal Exam: Soft, Normal Bowel Sounds. 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 Prior EGD 03/2015 due to melena showed erythema at gastric pouch, gastrojejunal anastamosis clean-based 6mm ulcer, and normal alimentary limb. S/P EGD POD 1: Partially circumferential anastomatic ulceration which was not currently bleeding, normal alimentary limb. Partially circumferential anastomatic ulceration Normocytic Anemia GI bleed, etiology, likely 2/2 to the above Alcoholic hepatitis, DF: Hx of alcohol abuse, last drink 1st week of Mar 2017 Plan: >elevated LFTs in setting of alcohol hepatitis, trending down, DF <32 >continue to trend LFTS >Continue PPI BID >carafate >advance diet to full >can d/c abx >can transfer out of ICU, from GI standpoint >supportive care: pain control, antiemetics, PPI >counselled on alcohol cessation >keep Hgb ~ [address] Kelley <Benji CRENSHAW,[facility] - Last Filed: 04/23/17 15:53> Objective - Vital Signs/Intake and Output Vital Signs (last 24 hours): Temp Pulse Resp BP Pulse Ox 98 F 97 H 56 H 122/82 98 04/23/17 12:00 04/23/17 15:00 04/23/17 15:00 04/23/17 13:30 04/23/17 13:30 - Medications Medications: Current Medications Atenolol (Tenormin) 25 mg PO DAILY [facility] Last Admin: 04/23/17 12:18 Dose: Not Given Benzonatate (Tessalon Perles) 100 mg PO TID PRN PRN Reason: Cough Last Admin: 04/23/17 06:01 Dose: 100 mg Digoxin (Lanoxin Elixir Soln) 0.125 mg PO DAILY [facility] Last Admin: 04/23/17 10:28 Dose: 0.125 mg Folic Acid (Folic Acid) 1 mg PO DAILY [facility] Last Admin: 04/23/17 10:11 Dose: 1 mg Guaifenesin/Dextromethorphan (Robitussin Dm) 10 ml PO Q4H PRN PRN Reason: Cough Last Admin: 04/23/17 03:36 Dose: 10 ml Pantoprazole Sodium (Protonix 40mg Ivpb) 40 mg in 100 mls @ 20 mls/hr IVPB .Q5H [facility] Stop: 04/24/17 20:00 Last Admin: 04/23/17 12:36 Dose: 20 mls/hr Levothyroxine Sodium (Synthroid) 25 mcg PO 0600 [facility] Last Admin: 04/23/17 06:01 Dose: 25 mcg Lorazepam (Ativan) 2 mg IVP Q4H PRN; Protocol PRN Reason: Agitation Last Admin: 04/22/17 22:10 Dose: 2 mg Midodrine (Proamatine) 10 mg PO TID [facility] Last Admin: 04/23/17 15:09 Dose: 10 mg Multivitamins/Minerals (Therapeutic-M Tab) 1 tab PO 0800 [facility] Sucralfate (Carafate Oral Susp) 1 gm PO 0630,1130,1630,2200 [facility] Last Admin: 04/23/17 12:24 Dose: 1 gm Thiamine HCl (Vitamin B1 Tab) 100 mg PO DAILY [facility] Last Admin: 04/23/17 10:11 Dose: 100 mg Tramadol HCl (Ultram) 50 mg PO TID PRN PRN Reason: Pain, moderate (4-7) Last Admin: 04/23/17 15:09 Dose: 50 mg - Labs Labs: 04/23/17 06:00 04/23/17 06:00 PT 15.8 SECONDS (9.4-12.5) H 04/23/17 13:00 INR 1.37 (0.93-1.08) H 04/23/17 13:00 APTT 34.4 Seconds (25.1-36.5) 04/21/17 18:25 Attending/Attestation - Attestation I have personally seen and examined this patient.: Yes I have fully participated in the care of the patient.: Yes I have reviewed all pertinent clinical information, including history, physical exam and plan: Yes Notes (Text): 04/23/17 15:49 Patient seen with GI fellow on rounds. 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 Anemia likely multifactorial due to BMS due to alcohol. Tolerating clear liquid diet- will advance to full liquids. Can be transferred to telemetry. Continue PPI gtt for total of 72 hours. Can discontinue antibiotics. Supportive care with pain control, antiemetics, PPI Counselled on alcohol cessation. Will follow
[2017-04-24] MEDS: Pantoprazole 40mg/100mL NS 40 MG/100 ML BAG IVPB SCH (04:54)
[2017-04-24] MEDS: Sucralfate 1 gm/10 ml Oral Susp UD PO SCH ×4 (05:41→21:40)
[2017-04-24 07:06] LABS: BASO # 0.01 K/mm3 (0.0-2.0); BASO % 0.2 % (0.0-3.0); EOS % 0.5 % (1.5-5.0); GRAN # 3.94 (1.4-6.5); GRAN % 70.3 % (50.0-68.0); HEMOGLOBIN 8.6 g/dL (14.0-18.0); LYMPH % 17.9 % (22.0-35.0); MEAN CELL VOLUME 97.3 fl (80.0-105.0); MEAN CORPUSCULAR HEMOGLOBIN 32.6 pg (25.0-35.0); MEAN CORPUSCULAR HGB CONC 33.5 g/dl (31.0-37.0); MONO # 0.6 (0.1-0.6); MONO % 11.1 % (1.0-6.0); RBC 2.64 10^6/uL (3.5-6.1); RED CELL DISTRIBUTION WIDTH 16.9 % (11.5-14.5); WHITE BLOOD COUNT 5.6 10^3/ul (4.5-11.0)
[2017-04-24 07:27] LABS: INR 1.39 (0.93-1.08); PROTHROMBIN TIME 16.1 SECONDS (9.4-12.5)
[2017-04-24 08:04] LABS: ALB/GLOB RATIO 0.8 (1.1-1.8); ALBUMIN 2.3 g/dL (3.0-4.8); ALT/SGPT 88 U/L (7-56); AST/SGOT 110 U/L (17-59); BLOOD UREA NITROGEN 7 mg/dL (7-21); CALCIUM 8.1 mg/dL (8.4-10.5); GFR AFRICAN-AMERICAN > 60; GFR NON-AFRICAN AMERICAN > 60; MAGNESIUM 1.8 mg/dL (1.7-2.2)
--- NOTE | 2017-04-24 09:03 | CP.PCM.PN ---
<Ino Caro - Last Filed: 04/24/17 09:04> Subjective - Date & Time of Evaluation Date of Evaluation: 04/24/17 Time of Evaluation: 08:00 - Subjective Subjective: PGY4 GI Follow-up Pt seen and examined bedside tolerated reg diet complained of maroon stools last night no episodes of BRBPR, melena, hematemesis or coffee-ground emesis Still on PPi drip ROS:10 Point ROS conducted neg other than above Objective - Vital Signs/Intake and Output Vital Signs (last 24 hours): Temp Pulse Resp BP Pulse Ox 98.6 F 74 14 108/65 97 04/24/17 04:00 04/24/17 06:58 04/24/17 06:58 04/24/17 04:00 04/24/17 04:20 Intake and Output: 04/24/17 04/24/17 06:59 18:59 Intake Total 1260 Output Total 1200 Balance 60 - Medications Medications: Current Medications Atenolol (Tenormin) 25 mg PO DAILY [facility] Last Admin: 04/23/17 12:18 Dose: Not Given Benzonatate (Tessalon Perles) 100 mg PO TID PRN PRN Reason: Cough Last Admin: 04/23/17 06:01 Dose: 100 mg Digoxin (Lanoxin Elixir Soln) 0.125 mg PO DAILY [facility] Last Admin: 04/23/17 10:28 Dose: 0.125 mg Folic Acid (Folic Acid) 1 mg PO DAILY [facility] Last Admin: 04/23/17 10:11 Dose: 1 mg Guaifenesin/Dextromethorphan (Robitussin Dm) 10 ml PO Q4H PRN PRN Reason: Cough Last Admin: 04/23/17 03:36 Dose: 10 ml Pantoprazole Sodium (Protonix 40mg Ivpb) 40 mg in 100 mls @ 20 mls/hr IVPB .Q5H [facility] Stop: 04/24/17 20:00 Last Admin: 04/24/17 04:54 Dose: 20 mls/hr Levothyroxine Sodium (Synthroid) 25 mcg PO 0600 [facility] Last Admin: 04/23/17 06:01 Dose: 25 mcg Lorazepam (Ativan) 2 mg IVP Q4H PRN; Protocol PRN Reason: Agitation Last Admin: 04/24/17 00:31 Dose: 2 mg Midodrine (Proamatine) 10 mg PO TID [facility] Last Admin: 04/23/17 18:04 Dose: 10 mg Multivitamins/Minerals (Therapeutic-M Tab) 1 tab PO 0800 [facility] Sucralfate (Carafate Oral Susp) 1 gm PO 0630,1130,1630,2200 [facility] Last Admin: 04/24/17 05:41 Dose: 1 gm Thiamine HCl (Vitamin B1 Tab) 100 mg PO DAILY [facility] Last Admin: 04/23/17 10:11 Dose: 100 mg Tramadol HCl (Ultram) 50 mg PO TID PRN PRN Reason: Pain, moderate (4-7) Last Admin: 04/23/17 22:08 Dose: 50 mg - Labs Labs: 04/24/17 06:45 04/24/17 06:45 PT 16.1 SECONDS (9.4-12.5) H 04/24/17 06:45 INR 1.39 (0.93-1.08) H 04/24/17 06:45 APTT 34.4 Seconds (25.1-36.5) 04/21/17 18:25 - Constitutional Appears: Well, No Acute Distress - Head Exam Head Exam: NORMAL INSPECTION - Eye Exam Eye Exam: Scleral icterus - Neck Exam Neck Exam: Normal Inspection - Respiratory Exam Respiratory Exam: Clear to Ausculation Bilateral, NORMAL BREATHING PATTERN. absent: Rales, Rhonchi, Wheezes, Respiratory Distress - Cardiovascular Exam Cardiovascular Exam: Irregular Rhythm - GI/Abdominal Exam GI & Abdominal Exam: Soft, Normal Bowel Sounds. 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 Prior EGD 03/2015 due to melena showed erythema at gastric pouch, gastrojejunal anastamosis clean-based 6mm ulcer, and normal alimentary limb. S/P EGD POD 2: Partially circumferential anastomatic ulceration which was not currently bleeding, normal alimentary limb. Partially circumferential anastomatic ulceration Normocytic Anemia GI bleed, etiology, likely 2/2 to the above Alcoholic hepatitis Hx of alcohol abuse, last drink 1st week of Mar 2017 Plan: >elevated LFTs in setting of alcohol hepatitis, trending down, DF <32 >continue to trend LFTS >Continue PPI BID IV >carafate >advance to regular diet >can transfer out of ICU, from GI standpoint >supportive care: pain control, antiemetics, PPI >counselled on alcohol cessation >keep Hgb ~ [address] Kelley <Oscar Kelley - Last Filed: 04/24/17 09:20> Objective - Vital Signs/Intake and Output Vital Signs (last 24 hours): Temp Pulse Resp BP Pulse Ox 98.6 F 74 14 108/65 97 04/24/17 04:00 04/24/17 06:58 04/24/17 06:58 04/24/17 04:00 04/24/17 04:20 Intake and Output: 04/24/17 04/24/17 06:59 18:59 Intake Total 1260 Output Total 1200 Balance 60 - Medications Medications: Current Medications Atenolol (Tenormin) 25 mg PO DAILY [facility] Last Admin: 04/23/17 12:18 Dose: Not Given Benzonatate (Tessalon Perles) 100 mg PO TID PRN PRN Reason: Cough Last Admin: 04/23/17 06:01 Dose: 100 mg Digoxin (Lanoxin Elixir Soln) 0.125 mg PO DAILY [facility] Last Admin: 04/23/17 10:28 Dose: 0.125 mg Folic Acid (Folic Acid) 1 mg PO DAILY [facility] Last Admin: 04/23/17 10:11 Dose: 1 mg Guaifenesin/Dextromethorphan (Robitussin Dm) 10 ml PO Q4H PRN PRN Reason: Cough Last Admin: 04/23/17 03:36 Dose: 10 ml Levothyroxine Sodium (Synthroid) 25 mcg PO 0600 [facility] Last Admin: 04/23/17 06:01 Dose: 25 mcg Lorazepam (Ativan) 2 mg IVP Q4H PRN; Protocol PRN Reason: Agitation Last Admin: 04/24/17 00:31 Dose: 2 mg Midodrine (Proamatine) 10 mg PO TID [facility] Last Admin: 04/23/17 18:04 Dose: 10 mg Multivitamins/Minerals (Therapeutic-M Tab) 1 tab PO 0800 [facility] Pantoprazole Sodium (Protonix Inj) 40 mg IVP Q12 [facility] Sucralfate (Carafate Oral Susp) 1 gm PO 0630,1130,1630,2200 [facility] Last Admin: 04/24/17 05:41 Dose: 1 gm Thiamine HCl (Vitamin B1 Tab) 100 mg PO DAILY [facility] Last Admin: 04/23/17 10:11 Dose: 100 mg Tramadol HCl (Ultram) 50 mg PO TID PRN PRN Reason: Pain, moderate (4-7) Last Admin: 04/23/17 22:08 Dose: 50 mg - Labs Labs: 04/24/17 06:45 04/24/17 06:45 PT 16.1 SECONDS (9.4-12.5) H 04/24/17 06:45 INR 1.39 (0.93-1.08) H 04/24/17 06:45 APTT 34.4 Seconds (25.1-36.5) 04/21/17 18:25 Attending/Attestation - Attestation I have personally seen and examined this patient.: Yes I have fully participated in the care of the patient.: Yes I have reviewed all pertinent clinical information, including history, physical exam and plan: Yes Notes (Text): 04/24/17 09:15 I have seen and examined patient with GI fellow. No acute events overnight, he is seen resting in bed comfortably. He endorses generalized abdominal discomfort and two maroon colored bowel movements overnight. He denies nausea, vomiting, fever/chills. He is tolerating PO diet without difficulty. Review of vitals from today are normal. ETOH abuse Obesity s/p gastric bypass Dilated cardiomyopathy Atrial fibrillation Melena, s/p EGD showing large anastomotic ulcer - Diet as tolerated - H/H stable, continue to monitor, no further PRBC transfusion required since initial day of admission - Continue with PPI and carafate regimen - ETOH cessation counseling - NSAID avoidance - Follow up EGD biopsy results - No further planned GI intervention, will sign off case. Patient would benefit from outpatient follow up. Please reconsult as necessary, thank you.
[2017-04-24] MEDS ORDERED: oxyCODONE 10 mg Immediate Release Tab PO STA (09:59)
[2017-04-24] MEDS: Multivitamin With Minerals Tab PO SCH (10:06)
[2017-04-24] MEDS: Levothyroxine 25 MCG TAB PO SCH (10:06)
--- NOTE | 2017-04-24 10:13 | CP.PCM.PN ---
<Luis Navarro - Last Filed: 04/24/17 14:43> Subjective - Date & Time of Evaluation Date of Evaluation: 04/24/17 Time of Evaluation: 07:30 - Subjective Subjective: Luis Melanie DO PGY1 - IM Progress Note Patient seen and examined at bedside. No acute events overnight. Patient complaining of wrist pain, back pain radiating down left leg. Still having some dark brown/red stools. Also complaining of cough, nonproductive, bothersome. Denies any chest pain, palpitations, shortness of breath, fever, chills, dysuria , diarrhea, constipation. Also still with swelling in both legs. Objective - Vital Signs/Intake and Output Vital Signs (last 24 hours): Temp Pulse Resp BP Pulse Ox 98.6 F 100 H 13 94/53 L 100 04/24/17 04:00 04/24/17 09:32 04/24/17 09:32 04/24/17 09:32 04/24/17 09:32 Intake and Output: 04/24/17 04/24/17 06:59 18:59 Intake Total 1260 Output Total 1200 Balance 60 - Medications Medications: Current Medications Atenolol (Tenormin) 25 mg PO DAILY [facility] Last Admin: 04/23/17 12:18 Dose: Not Given Benzonatate (Tessalon Perles) 100 mg PO TID PRN PRN Reason: Cough Last Admin: 04/23/17 06:01 Dose: 100 mg Digoxin (Lanoxin Elixir Soln) 0.125 mg PO DAILY [facility] Last Admin: 04/23/17 10:28 Dose: 0.125 mg Folic Acid (Folic Acid) 1 mg PO DAILY [facility] Last Admin: 04/23/17 10:11 Dose: 1 mg Guaifenesin/Dextromethorphan (Robitussin Dm) 10 ml PO Q4H PRN PRN Reason: Cough Last Admin: 04/23/17 03:36 Dose: 10 ml Levothyroxine Sodium (Synthroid) 25 mcg PO 0600 [facility] Last Admin: 04/23/17 06:01 Dose: 25 mcg Lorazepam (Ativan) 2 mg IVP Q4H PRN; Protocol PRN Reason: Agitation Last Admin: 04/24/17 00:31 Dose: 2 mg Midodrine (Proamatine) 10 mg PO TID [facility] Last Admin: 04/23/17 18:04 Dose: 10 mg Multivitamins/Minerals (Therapeutic-M Tab) 1 tab PO 0800 [facility] Oxycodone HCl (Oxycodone Immediate Release Tab) 10 mg PO Q6H PRN PRN Reason: Pain, severe (8-10) Pantoprazole Sodium (Protonix Inj) 40 mg IVP Q12 [facility] Sucralfate (Carafate Oral Susp) 1 gm PO 0630,1130,1630,2200 [facility] Last Admin: 04/24/17 05:41 Dose: 1 gm Thiamine HCl (Vitamin B1 Tab) 100 mg PO DAILY [facility] Last Admin: 04/23/17 10:11 Dose: 100 mg Verapamil HCl (Calan Tab) 80 mg PO TID [facility] - Labs Labs: 04/24/17 06:45 04/24/17 06:45 PT 16.1 SECONDS (9.4-12.5) H 04/24/17 06:45 INR 1.39 (0.93-1.08) H 04/24/17 06:45 APTT 34.4 Seconds (25.1-36.5) 04/21/17 18:25 - Constitutional Appears: Non-toxic, No Acute Distress - Head Exam Head Exam: ATRAUMATIC, NORMOCEPHALIC - Eye Exam Eye Exam: EOMI, PERRL, Scleral icterus - ENT Exam ENT Exam: Mucous Membranes Moist - Neck Exam Neck Exam: Normal Inspection - Respiratory Exam Respiratory Exam: Clear to Ausculation Bilateral, NORMAL BREATHING PATTERN - Cardiovascular Exam Cardiovascular Exam: Tachycardia (Intermittent, associated with cough, returns to baseline within 1minute), Irregular Rhythm, +S1, +S2 - GI/Abdominal Exam GI & Abdominal Exam: Distended, Soft. absent: Firm, Guarding, Rigid, Tenderness Additional comments: +shifting dullness +fluid wave - Extremities Exam Extremities Exam: Pedal Edema (3-4+ to knees). absent: Calf Tenderness Additional comments: R wrist with swelling (nonpitting edema), ecchymosis, tenderness, limited ROM due to pain - Neurological Exam Neurological Exam: Alert, Awake, Oriented x3 - Psychiatric Exam Psychiatric exam: Normal Affect, Normal Mood - Skin Skin Exam: Dry, Intact Additional comments: mild jaundice Assessment and Plan - Assessment and Plan (Free Text) Assessment: 51yo male PMHx dilated cardiomyopathy s/p single chamber ventricular pacemaker placement, chronic atrial fibrillation, alcohol abuse, thrombocytopenia, peptic ulcer disease and depression presented with complaints of abdominal pain and black tarry stools found to be hypotensive and significantly anemic with Hgb of 5.9. Now s/p EGD which revealed large ulcer, likely source of bleeding. s/p 3u PRBC Plan: Anemia 2/2 GI bleed - Patient is s/p EGD on 04/22 which showed large deep, circumferential ulceration with clean base; likely source of bleeding - s/p 3u PRBC - H&H stable, improving - Patient still complaining of dark red stools; likely residual blood - Continue Protonix 40mg IV BID - Continue to monitor; no indications to transfuse at this time Atrial fibrillation with rapid ventricular response - Patient not anticoagulated due to bleeding risk - HR intermittently controlled - Continue digoxin - Patient started on Atenolol today; resume home Verapamil Recent traumatic R wrist fracture - Nondisplaced, neurovascularly intact - Ordered Velcro Volar wrist splint - Patient will need to follow up with ortho outpatient for casting; after swelling is reduced h/o Hypertension - BP well controlled on Atenolol, Midodrine, and Verapamil, continue to monitor - Resume home Lasix for peripheral edema Peptic ulcer disease - Pepcid 20 mg PO daily Hypothyroidism - Cont Synthroid GI/DVT Ppx: Protonix, SCDs Patient seen, examined, and discussed with attending Dr. Garcia Patient will follow up with Dr. Kamille Dean upon discharge, currently has appointment for , 04/27/17 <Elsie Garcia - Last Filed: 04/24/17 17:04> Objective - Vital Signs/Intake and Output Vital Signs (last 24 hours): Temp Pulse Resp BP Pulse Ox 98.1 F 89 18 112/75 91 L 04/24/17 15:46 04/24/17 15:46 04/24/17 15:46 04/24/17 15:46 04/24/17 15:46 Intake and Output: 04/24/17 04/24/17 06:59 18:59 Intake Total 1260 Output Total 1200 Balance 60 - Medications Medications: Current Medications Atenolol (Tenormin) 25 mg PO DAILY [facility] Last Admin: 04/24/17 10:04 Dose: 25 mg Benzonatate (Tessalon Perles) 100 mg PO TID PRN PRN Reason: Cough Last Admin: 04/24/17 16:55 Dose: 100 mg Digoxin (Lanoxin Elixir Soln) 0.125 mg PO DAILY [facility] Last Admin: 04/24/17 12:25 Dose: 0.125 mg Folic Acid (Folic Acid) 1 mg PO DAILY [facility] Last Admin: 04/24/17 10:04 Dose: 1 mg Furosemide (Lasix) 20 mg PO BID [facility] Guaifenesin/Dextromethorphan (Robitussin Dm) 10 ml PO Q4H PRN PRN Reason: Cough Last Admin: 04/23/17 03:36 Dose: 10 ml Levothyroxine Sodium (Synthroid) 25 mcg PO 0600 [facility] Last Admin: 04/24/17 10:06 Dose: 25 mcg Lorazepam (Ativan) 2 mg IVP Q4H PRN; Protocol PRN Reason: Agitation Last Admin: 04/24/17 00:31 Dose: 2 mg Midodrine (Proamatine) 10 mg PO TID [facility] Last Admin: 04/24/17 15:17 Dose: 10 mg Multivitamins/Minerals (Therapeutic-M Tab) 1 tab PO 0800 [facility] Last Admin: 04/24/17 10:06 Dose: 1 tab Oxycodone HCl (Oxycodone Immediate Release Tab) 10 mg PO Q6H PRN PRN Reason: Pain, severe (8-10) Last Admin: 04/24/17 15:34 Dose: 10 mg Pantoprazole Sodium (Protonix Inj) 40 mg IVP Q12 [facility] Last Admin: 04/24/17 10:20 Dose: 40 mg Sucralfate (Carafate Oral Susp) 1 gm PO 0630,1130,1630,2200 [facility] Last Admin: 04/24/17 16:55 Dose: 1 gm Thiamine HCl (Vitamin B1 Tab) 100 mg PO DAILY [facility] Last Admin: 04/24/17 10:04 Dose: 100 mg Verapamil HCl (Calan Tab) 80 mg PO TID [facility] Last Admin: 04/24/17 15:15 Dose: 80 mg - Labs Labs: 04/24/17 06:45 04/24/17 06:45 PT 16.1 SECONDS (9.4-12.5) H 04/24/17 06:45 INR 1.39 (0.93-1.08) H 04/24/17 06:45 APTT 34.4 Seconds (25.1-36.5) 04/21/17 18:25 Attending/Attestation - Attestation I have personally seen and examined this patient.: Yes I have fully participated in the care of the patient.: Yes I have reviewed all pertinent clinical information, including history, physical exam and plan: Yes Notes (Text): 04/24/17 16:59 Attending note; Patient seen and examined with resident in ICU. Patient is alert, awake and oriented. Tolerating diet well. Denies any abdominal pain. Patient is a 51-year-old male with past medical history of alcohol abuse, alcoholic hepatitis, dilated cardiomyopathy s/p single chamber ventricular pacemaker placement, chronic atrial fibrillation, thrombocytopenia, peptic ulcer disease and depression presented with complaints of abdominal pain and black tarry stools found to be hypotensive and significantly anemic with Hgb of 5.9. Status post 3 unit PRBC transfusion. Now s/p EGD which revealed large ulcer, likely source of bleeding. The patient was recently treated with prednisolone for alcoholic hepatitis. Currently no active bleeding. Hemoglobin is stable. GI evaluation appreciated. Chronic alcohol use; patient was recently set up for outpatient alcohol rehabilitation. Patient refused and went home. Currently not interested in alcohol rehabilitation. Right wrist fracture; continue splint. Chronic opiate abuse. Currently on low-dose oxycodone. Advised to avoid Tylenol and Motrin/NSAIDs. Prognosis is poor secondary to noncompliance with follow-up and chronic alcohol abuse. Upon discharge the patient will follow up with PMD Dr.Nina Dean. 04/24/17 17:03
[2017-04-24] MEDS: Digoxin 0.05 mg/mL Elixir 5mL PO SCH (12:25)
[2017-04-24] MEDS: oxyCODONE 10 mg Immediate Release Tab PO PRN (15:34)
[2017-04-25] MEDS: oxyCODONE 10 mg Immediate Release Tab PO PRN ×3 (02:10→21:26)
[2017-04-25 04:46] LABS: INR 1.37 (0.93-1.08); PROTHROMBIN TIME 15.7 SECONDS (9.4-12.5)
[2017-04-25] MEDS: Sucralfate 1 gm/10 ml Oral Susp UD PO SCH ×4 (05:30→21:25)
[2017-04-25] MEDS: Levothyroxine 25 MCG TAB PO SCH (05:30)
[2017-04-25 07:36] LABS: BASO # 0.01 K/mm3 (0.0-2.0); BASO % 0.1 % (0.0-3.0); EOS # 0.1 (0.0-0.7); EOS % 0.6 % (1.5-5.0); GRAN # 5.79 (1.4-6.5); GRAN % 73.6 % (50.0-68.0); HEMOGLOBIN 8.6 g/dL (14.0-18.0); LYMPH # 1.4 (1.2-3.4); LYMPH % 17.3 % (22.0-35.0); MEAN CELL VOLUME 99.6 fl (80.0-105.0); MEAN CORPUSCULAR HEMOGLOBIN 32.3 pg (25.0-35.0); MEAN CORPUSCULAR HGB CONC 32.5 g/dl (31.0-37.0); MEAN PLATELET VOLUME 10.4 fl (7.0-11.0); MONO # 0.7 (0.1-0.6); MONO % 8.4 % (1.0-6.0); RBC 2.66 10^6/uL (3.5-6.1); RED CELL DISTRIBUTION WIDTH 16.8 % (11.5-14.5); WHITE BLOOD COUNT 7.9 10^3/ul (4.5-11.0)
[2017-04-25 08:01] LABS: ALB/GLOB RATIO 0.8 (1.1-1.8); ALBUMIN 2.5 g/dL (3.0-4.8); ALT/SGPT 81 U/L (7-56); AST/SGOT 98 U/L (17-59); BLOOD UREA NITROGEN 10 mg/dL (7-21); CALCIUM 8.5 mg/dL (8.4-10.5); GFR AFRICAN-AMERICAN > 60; GFR NON-AFRICAN AMERICAN > 60
[2017-04-25] MEDS: Multivitamin With Minerals Tab PO SCH (10:14)
[2017-04-25] MEDS: Digoxin 0.05 mg/mL Elixir 5mL PO SCH (10:21)
--- NOTE | 2017-04-25 12:48 | CP.PCM.PN ---
<Luis Navarro - Last Filed: 04/25/17 12:56> Subjective - Date & Time of Evaluation Date of Evaluation: 04/25/17 Time of Evaluation: 07:30 - Subjective Subjective: Tuh[place]katherine Melanie DO PGY1 - IM Progress Note Patient seen and examined at bedside. No acute events overnight. Patient still complaining of wrist pain and back pain, as well as loose, maroon colored stools. Cough unchanged. Patient feels week, worried about going home. Denies any chest pain, palpitations, shortness of breath, fever, chills, dysuria, diarrhea, constipation. Also still with swelling in both legs. Objective - Vital Signs/Intake and Output Vital Signs (last 24 hours): Temp Pulse Resp BP Pulse Ox 98.1 F 75 12 105/61 98 04/25/17 06:00 04/25/17 10:15 04/25/17 06:00 04/25/17 10:15 04/25/17 06:00 Intake and Output: 04/25/17 04/25/17 06:59 18:59 Intake Total 720 Output Total 1080 Balance -360 - Medications Medications: Current Medications Atenolol (Tenormin) 25 mg PO DAILY [facility] Last Admin: 04/25/17 10:14 Dose: 25 mg Benzonatate (Tessalon Perles) 100 mg PO TID PRN PRN Reason: Cough Last Admin: 04/24/17 16:55 Dose: 100 mg Digoxin (Lanoxin Elixir Soln) 0.125 mg PO DAILY [facility] Last Admin: 04/25/17 10:21 Dose: 0.125 mg Folic Acid (Folic Acid) 1 mg PO DAILY [facility] Last Admin: 04/25/17 10:15 Dose: 1 mg Furosemide (Lasix) 20 mg PO BID [facility] Last Admin: 04/25/17 10:14 Dose: 20 mg Guaifenesin/Dextromethorphan (Robitussin Dm) 10 ml PO Q4H PRN PRN Reason: Cough Last Admin: 04/23/17 03:36 Dose: 10 ml Levothyroxine Sodium (Synthroid) 25 mcg PO 0600 [facility] Last Admin: 04/25/17 05:30 Dose: 25 mcg Lorazepam (Ativan) 2 mg IVP Q4H PRN; Protocol PRN Reason: Agitation Last Admin: 04/24/17 00:31 Dose: 2 mg Midodrine (Proamatine) 10 mg PO TID [facility] Last Admin: 04/25/17 10:14 Dose: 10 mg Multivitamins/Minerals (Therapeutic-M Tab) 1 tab PO 0800 [facility] Last Admin: 04/25/17 10:14 Dose: 1 tab Oxycodone HCl (Oxycodone Immediate Release Tab) 10 mg PO Q6H PRN PRN Reason: Pain, severe (8-10) Last Admin: 04/25/17 02:10 Dose: 10 mg Pantoprazole Sodium (Protonix Inj) 40 mg IVP Q12 [facility] Last Admin: 04/25/17 10:14 Dose: 40 mg Sucralfate (Carafate Oral Susp) 1 gm PO 0630,1130,1630,2200 [facility] Last Admin: 04/25/17 05:30 Dose: 1 gm Thiamine HCl (Vitamin B1 Tab) 100 mg PO DAILY [facility] Last Admin: 04/25/17 10:15 Dose: 100 mg Verapamil HCl (Calan Tab) 80 mg PO TID [facility] Last Admin: 04/25/17 10:15 Dose: 80 mg - Labs Labs: 04/25/17 06:00 04/25/17 06:00 PT 15.7 SECONDS (9.4-12.5) H 04/25/17 04:20 INR 1.37 (0.93-1.08) H 04/25/17 04:20 APTT 34.4 Seconds (25.1-36.5) 04/21/17 18:25 - Additional Findings Additional findings: - Constitutional Appears: Non-toxic, No Acute Distress - Head Exam Head Exam: ATRAUMATIC, NORMOCEPHALIC - Eye Exam Eye Exam: EOMI, PERRL, Scleral icterus - ENT Exam ENT Exam: Mucous Membranes Moist - Neck Exam Neck Exam: Normal Inspection - Respiratory Exam Respiratory Exam: Clear to Ausculation Bilateral, NORMAL BREATHING PATTERN - Cardiovascular Exam Cardiovascular Exam: Irregular Rhythm, +S1, +S2. Absent: tachycardia - GI/Abdominal Exam GI & Abdominal Exam: Distended, Soft. absent: Firm, Guarding, Rigid, Tenderness Additional comments: +shifting dullness - Extremities Exam Extremities Exam: Pedal Edema (3-4+ to knees). absent: Calf Tenderness Additional comments: R wrist with ecchymosis, tenderness, limited ROM due to pain - Neurological Exam Neurological Exam: Alert, Awake, Oriented x3 - Psychiatric Exam Psychiatric exam: Normal Affect, Normal Mood - Skin Skin Exam: Dry, Intact Additional comments: mild jaundice Assessment and Plan - Assessment and Plan (Free Text) Assessment: 51yo male PMHx dilated cardiomyopathy s/p single chamber ventricular pacemaker placement, chronic atrial fibrillation, alcohol abuse, thrombocytopenia, peptic ulcer disease and depression presented with complaints of abdominal pain and black tarry stools found to be hypotensive and significantly anemic with Hgb of 5.9. Now s/p EGD which revealed large ulcer, likely source of bleeding. s/p 3u PRBC Plan: Anemia 2/ GI bleed - Patient is s/p EGD on 04/22 which showed large deep, circumferential ulceration with clean base; likely source of bleeding - s/p 3u PRBC - H&H stable, improving - Patient still complaining of dark red stools; likely residual blood - Continue Protonix 40mg IV BID - Patient had femoral TLC placed early in admission; will remove today after placement of a peripheral line - Continue to monitor; no indications to transfuse at this time - PT Eval/Treat Atrial fibrillation with rapid ventricular response - Patient not anticoagulated due to bleeding risk - HR controlled on current regimen - Continue digoxin - Continue Atenolol and Verapamil Recent traumatic R wrist fracture - Nondisplaced, neurovascularly intact - Instructed patient to continually wear splint - Patient will need to follow up with ortho outpatient for casting; after swelling is reduced - Patient reports that he has an appointment with Dr. Allan on , 04/27/17 h/o Hypertension - BP well controlled on Atenolol, Midodrine, and Verapamil, continue to monitor - Resume home Lasix for peripheral edema Peptic ulcer disease - Protonix 40mg IVP Q12 Hypothyroidism - Cont Synthroid GI/DVT Ppx: Protonix, SCDs Patient seen, examined, and discussed with attending Dr. Garcia Patient will follow up with Dr. Kamille Dean upon discharge, currently has appointment for , 04/27/17 <Elsie Garcia - Last Filed: 04/25/17 17:13> Objective - Vital Signs/Intake and Output Vital Signs (last 24 hours): Temp Pulse Resp BP Pulse Ox 99.2 F 77 19 94/67 L 99 04/25/17 12:00 04/25/17 17:00 04/25/17 13:00 04/25/17 17:00 04/25/17 13:00 Intake and Output: 04/25/17 04/25/17 06:59 18:59 Intake Total 720 Output Total 1080 Balance -360 - Medications Medications: Current Medications Atenolol (Tenormin) 25 mg PO DAILY [facility] Last Admin: 04/25/17 10:14 Dose: 25 mg Benzonatate (Tessalon Perles) 100 mg PO TID PRN PRN Reason: Cough Last Admin: 04/24/17 16:55 Dose: 100 mg Digoxin (Lanoxin Elixir Soln) 0.125 mg PO DAILY [facility] Last Admin: 04/25/17 10:21 Dose: 0.125 mg Folic Acid (Folic Acid) 1 mg PO DAILY [facility] Last Admin: 04/25/17 10:15 Dose: 1 mg Furosemide (Lasix) 20 mg PO BID [facility] Last Admin: 04/25/17 16:59 Dose: 20 mg Guaifenesin/Dextromethorphan (Robitussin Dm) 10 ml PO Q4H PRN PRN Reason: Cough Last Admin: 04/23/17 03:36 Dose: 10 ml Levothyroxine Sodium (Synthroid) 25 mcg PO 0600 [facility] Last Admin: 04/25/17 05:30 Dose: 25 mcg Lorazepam (Ativan) 2 mg IVP Q4H PRN; Protocol PRN Reason: Agitation Last Admin: 04/25/17 15:17 Dose: 2 mg Midodrine (Proamatine) 10 mg PO TID [facility] Last Admin: 04/25/17 16:59 Dose: 10 mg Multivitamins/Minerals (Therapeutic-M Tab) 1 tab PO 0800 [facility] Last Admin: 04/25/17 10:14 Dose: 1 tab Oxycodone HCl (Oxycodone Immediate Release Tab) 10 mg PO Q6H PRN PRN Reason: Pain, severe (8-10) Last Admin: 04/25/17 13:26 Dose: 10 mg Pantoprazole Sodium (Protonix Inj) 40 mg IVP Q12 [facility] Last Admin: 04/25/17 10:14 Dose: 40 mg Sucralfate (Carafate Oral Susp) 1 gm PO 0630,1130,1630,2200 [facility] Last Admin: 04/25/17 17:00 Dose: 1 gm Thiamine HCl (Vitamin B1 Tab) 100 mg PO DAILY [facility] Last Admin: 04/25/17 10:15 Dose: 100 mg Verapamil HCl (Calan Tab) 80 mg PO TID [facility] Last Admin: 04/25/17 17:00 Dose: 80 mg - Labs Labs: 04/25/17 06:00 04/25/17 06:00 PT 16.7 SECONDS (9.4-12.5) H 04/25/17 13:20 INR 1.44 (0.93-1.08) H 04/25/17 13:20 APTT 34.4 Seconds (25.1-36.5) 04/21/17 18:25 Attending/Attestation - Attestation I have personally seen and examined this patient.: Yes I have fully participated in the care of the patient.: Yes I have reviewed all pertinent clinical information, including history, physical exam and plan: Yes Notes (Text): 04/25/17 17:10 Attending note; Patient seen and examined with resident in ICU. Patient is alert, awake and oriented. Tolerating diet well. Denies any abdominal pain. Patient is a 51-year-old male with past medical history of alcohol abuse, alcoholic hepatitis, dilated cardiomyopathy s/p single chamber ventricular pacemaker placement, chronic atrial fibrillation, thrombocytopenia, peptic ulcer disease and depression presented with complaints of abdominal pain and black tarry stools found to be hypotensive and significantly anemic with Hgb of 5.9. Status post 3 unit PRBC transfusion. Now s/p EGD which revealed large ulcer, likely source of bleeding. The patient was recently treated with prednisolone for alcoholic hepatitis. Currently no active bleeding. Hemoglobin is stable. GI evaluation appreciated. continue Protonix. Chronic alcohol use; patient was recently set up for outpatient alcohol rehabilitation. Patient refused and went home. Currently not interested in alcohol rehabilitation. Right wrist fracture; continue splint. follow-up with in 1 week. Chronic opiate abuse. Currently on low-dose oxycodone. Advised to avoid Tylenol and Motrin/NSAIDs. Prognosis is poor secondary to noncompliance with follow-up and chronic alcohol abuse. PT evaluation appreciated. Possible discharge home tomorrow. Poor IV access; DC right femoral line after getting peripheral line. Upon discharge the patient will follow up with PMD Dr.Nina Dean.
[2017-04-25 13:40] LABS: INR 1.44 (0.93-1.08); PROTHROMBIN TIME 16.7 SECONDS (9.4-12.5)
[2017-04-25 13:43] VITALS: O2SAT 99
[2017-04-26] MEDS: Levothyroxine 25 MCG TAB PO SCH (06:28)
[2017-04-26] MEDS: Sucralfate 1 gm/10 ml Oral Susp UD PO SCH ×2 (06:28→11:57)
[2017-04-26 06:58] LABS: BASO # 0.01 K/mm3 (0.0-2.0); BASO % 0.2 % (0.0-3.0); EOS % 0.6 % (1.5-5.0); GRAN # 3.64 (1.4-6.5); GRAN % 68.1 % (50.0-68.0); LYMPH # 1.2 (1.2-3.4); LYMPH % 21.9 % (22.0-35.0); MEAN CELL VOLUME 99.6 fl (80.0-105.0); MEAN CORPUSCULAR HEMOGLOBIN 32.3 pg (25.0-35.0); MEAN CORPUSCULAR HGB CONC 32.4 g/dl (31.0-37.0); MEAN PLATELET VOLUME 10.3 fl (7.0-11.0); MONO # 0.5 (0.1-0.6); MONO % 9.2 % (1.0-6.0); RBC 2.48 10^6/uL (3.5-6.1); RED CELL DISTRIBUTION WIDTH 16.7 % (11.5-14.5); WHITE BLOOD COUNT 5.3 10^3/ul (4.5-11.0)
[2017-04-26 07:23] LABS: ALB/GLOB RATIO 0.8 (1.1-1.8); ALBUMIN 2.2 g/dL (3.0-4.8); ALT/SGPT 69 U/L (7-56); AST/SGOT 78 U/L (17-59); BLOOD UREA NITROGEN 10 mg/dL (7-21); CALCIUM 8.2 mg/dL (8.4-10.5); GFR AFRICAN-AMERICAN > 60; GFR NON-AFRICAN AMERICAN > 60
[2017-04-26 07:24] LABS: INR 1.48 (0.93-1.08); PROTHROMBIN TIME 17.1 SECONDS (9.4-12.5)
[2017-04-26 08:17] VITALS: RESP 18; TEMP 98
[2017-04-26] MEDS: Multivitamin With Minerals Tab PO SCH (08:45)
[2017-04-26] MEDS ORDERED: Potassium Chloride 20 mEq ER Tab PO ONE (08:50)
[2017-04-26] MEDS: oxyCODONE 10 mg Immediate Release Tab PO PRN (09:19)
[2017-04-26 09:26] VITALS: BP 110/70
[2017-04-26] MEDS ORDERED: Digoxin 125 mcg (0.125 mg) Tab PO SCH (11:39)
[2017-04-26 12:01] VITALS: PULSE 80
[2017-04-26] MEDS ORDERED: Digoxin 125 mcg (0.125 mg) Tab PO STA (12:02)
[2017-04-26 12:05] VITALS: PULSE 78
[2017-04-26 13:35] LABS: INR 1.39 (0.93-1.08); PROTHROMBIN TIME 16.1 SECONDS (9.4-12.5)
--- NOTE | 2017-04-26 21:12 | CP.PCM.DIS ---
<Luis Navarro - Last Filed: 04/26/17 21:12> Provider - Provider Date of Admission: 04/21/17 20:07 Attending physician: Elsie Garcia MD Primary care physician: Kamille Dean MD Consults: GI: Warren Time Spent in preparation of Discharge (in minutes): 55 Diagnosis - Discharge Diagnosis (1) Alcohol abuse counseling and surveillance Status: Acute (2) Atrial fibrillation with rapid ventricular response Status: Acute (3) GI bleed Status: Acute Hospital Course - Lab Results Lab Results: Most Recent Lab Values WBC 5.3 10^3/ul (4.5-11.0) D 04/26/17 06:40 RBC 2.48 10^6/uL (3.5-6.1) L 04/26/17 06:40 Hgb 9.0 g/dL (14.0-18.0) L 04/26/17 13:00 Hct 27.3 % (42.0-52.0) L 04/26/17 13:00 MCV 99.6 fl (80.0-105.0) 04/26/17 06:40 MCH 32.3 pg (25.0-35.0) 04/26/17 06:40 MCHC 32.4 g/dl (31.0-37.0) 04/26/17 06:40 RDW 16.7 % (11.5-14.5) H 04/26/17 06:40 Plt Count 108 10^3/uL (120.0-450.0) L 04/26/17 06:40 MPV 10.3 fl (7.0-11.0) 04/26/17 06:40 Gran % 68.1 % (50.0-68.0) H 04/26/17 06:40 Lymph % (Auto) 21.9 % (22.0-35.0) L 04/26/17 06:40 Citrus % (Auto) 9.2 % (1.0-6.0) H 04/26/17 06:40 Eos % (Auto) 0.6 % (1.5-5.0) L 04/26/17 06:40 Baso % (Auto) 0.2 % (0.0-3.0) 04/26/17 06:40 Gran # 3.64 (1.4-6.5) 04/26/17 06:40 Lymph # (Auto) 1.2 (1.2-3.4) 04/26/17 06:40 Citrus # (Auto) 0.5 (0.1-0.6) 04/26/17 06:40 Eos # (Auto) 0.0 (0.0-0.7) 04/26/17 06:40 Baso # (Auto) 0.01 K/mm3 (0.0-2.0) 04/26/17 06:40 PT 16.1 SECONDS (9.4-12.5) H 04/26/17 13:00 INR 1.39 (0.93-1.08) H 04/26/17 13:00 APTT 34.4 Seconds (25.1-36.5) 04/21/17 18:25 Sodium 134 mmol/L (132-148) 04/26/17 06:40 Potassium 3.5 mmol/L (3.6-5.0) L 04/26/17 06:40 Chloride 103 mmol/L (98-107) 04/26/17 06:40 Carbon Dioxide 24 mmol/L (21-33) 04/26/17 06:40 Anion Gap 11 (10-20) 04/26/17 06:40 BUN 10 mg/dL (7-21) 04/26/17 06:40 Creatinine 0.5 mg/dl (0.8-1.5) L 04/26/17 06:40 Est GFR ( Amer) > 60 04/26/17 06:40 Est GFR (Non-Af Amer) > 60 04/26/17 06:40 Random Glucose 102 mg/dL (70-110) 04/26/17 06:40 Calcium 8.2 mg/dL (8.4-10.5) L 04/26/17 06:40 Phosphorus 2.7 mg/dL (2.5-4.5) 04/24/17 06:45 Magnesium 1.8 mg/dL (1.7-2.2) 04/24/17 06:45 Total Bilirubin 4.4 mg/dL (0.2-1.3) H 04/26/17 06:40 Direct Bilirubin 4.1 mg/dL (0.0-0.4) H 04/21/17 18:25 AST 78 U/L (17-59) H D 04/26/17 06:40 ALT 69 U/L (7-56) H 04/26/17 06:40 Alkaline Phosphatase 105 U/L (38-126) 04/26/17 06:40 Ammonia 14 umol/L (9-33) 04/21/17 18:25 Lactate Dehydrogenase 319 U/L (333-699) L 04/21/17 18:25 Total Creatine Kinase < 20 U/L (35-230) L 04/21/17 18:25 Troponin I < 0.01 ng/mL 04/21/17 18:25 Total Protein 5.0 g/dL (5.8-8.3) L 04/26/17 06:40 Albumin 2.2 g/dL (3.0-4.8) L 04/26/17 06:40 Globulin 2.8 gm/dL 04/26/17 06:40 Albumin/Globulin Ratio 0.8 (1.1-1.8) L 04/26/17 06:40 Lipase 21 U/L (23-300) L 04/21/17 18:25 TSH 3rd Generation 1.33 mIU/mL (0.46-4.68) 04/22/17 05:00 Urine Color Yellow (YELLOW) 04/21/17 21:18 Urine Appearance Clear (CLEAR) 04/21/17 21:18 Urine pH 7.0 (4.7-8.0) 04/21/17 21:18 Ur Specific [place] 1.010 (1.005-1.035) 04/21/17 21:18 Urine Protein Trace mg/dL (<30 mg/dL) H 04/21/17 21:18 Urine Glucose (UA) Negative mg/dL (NEGATIVE) 04/21/17 21:18 Urine Ketones Negative mg/dL (NEGATIVE) 04/21/17 21:18 Urine Blood Negative (NEGATIVE) 04/21/17 21:18 Urine Nitrate Negative (NEGATIVE) 04/21/17 21:18 Urine Bilirubin Moderate (NEGATIVE) H 04/21/17 21:18 Urine Urobilinogen 0.2 E.U./dL (<1 E.U./dL) 04/21/17 21:18 Ur Leukocyte Esterase Negative Abdi/uL (NEGATIVE) 04/21/17 21:18 Urine RBC 0 - 2 /hpf (0-2) 04/21/17 21:18 Urine WBC 1 - 3 /hpf (0-6) 04/21/17 21:18 Ur Epithelial Cells None /hpf (0-5) 04/21/17 21:18 Amorphous Sediment Few 04/21/17 21:18 Urine Bacteria Many (NEG) 04/21/17 21:18 Coarse Granular Casts Trace /hpf (0-2) H 04/21/17 21:18 Urine Other Uyeast 04/21/17 21:18 Digoxin 1.4 ng/mL (0.8-2.0) 04/21/17 18:25 Alcohol, Quantitative < 10 mg/dL (0-10) 04/21/17 18:25 Blood Type A POSITIVE 04/21/17: Antibody Screen Negative 04/21/17: Crossmatch See Detail 04/21/17: BBK History Checked Patient has bt 04/21/17 19:13 - Hospital Course Hospital Course: 51yo male PMHx dilated cardiomyopathy s/p single chamber ventricular pacemaker placement, chronic atrial fibrillation, alcohol abuse, thrombocytopenia, peptic ulcer disease and depression presented with complaints of abdominal pain and black tarry stools found to be hypotensive and significantly anemic with Hgb of 5.9. Patient was taken for EGD which revealed large ulcer, likely source of bleeding. In the course of the hospitalization, patient was transfused 3 units of PRBC. After the procedure, his H&H remained stable, with no further evidence of active bleeding. Patient did continue to have maroon colored stools, but this was likely retained blood. Patient was taken off the steroid regimen he had been previously started on for alcoholic hepatitis, due to the GIB, which may have been worsened by the steroids. Patient was started on a PPI drip, which was then converted to BID IV PPI, and was eventually discharged on PO BID PPI therapy. He was also treated for atrial fibrillation with rapid response. Care was taken to avoid antihypertensives in an acutely anemic state, but then his antihypertensives and rate control medications were resumed when he became more stable. Patient was monitored on telemetry after transfer from the ICU, then eventually downgraded to med/surg. On the day of discharge, patient's hemoglobin was rechecked to confirm improvement. Today, patient feels well overall, "ready to go home." He was observed ambulating around the halls comfortably, and was seen by physical therapy who advised that the patient did not require any advanced rehab services. Patient was still reporting maroon colored stools, but was advised that his H&H remained stable, and that this was likely retained blood. He denied any chest pain, shortness of breath, confusion, lightheadedness, abdominal pain, nausea, vomiting, diarrhea, constipation. He was given prescriptions for his PPI, Carafate, and a short supply of pain medications. He was repeatedly instructed on all his medications, and repeatedly instructed not to continue his prednisolone. Patient verbalized understanding and agreement. Patient reported that he had appointments with his PCP and ortho tomorrow (04/27/17), and was instructed to adhere to those appointments strictly. He was also education on abstinence from alcohol. Patient was previously discharged, after arrangements had been made for him to go to a rehab facility, but patient elected to go home instead. He was again recommended to go to the rehab facility, but he again chooses to go home instead. All questions were answered to his satisfaction, and he was discharged to home. Discharge Exam - Head Exam Head Exam: ATRAUMATIC, NORMOCEPHALIC - Eye Exam Eye Exam: EOMI, Normal appearance, PERRL - ENT Exam ENT Exam: Mucous Membranes Moist - Respiratory Exam Respiratory Exam: Clear to PA & Lateral, NORMAL BREATHING PATTERN - Cardiovascular Exam Cardiovascular Exam: Irregular Rhythm, +S1, +S2. absent: Tachycardia - GI/Abdominal Exam GI & Abdominal Exam: Distended, Normal Bowel Sounds, Soft. absent: Firm, Guarding, Tenderness - Extremities Exam Extremities exam: pedal edema (3+ to mid abdi) - Neurological Exam Neurological exam: Alert, CN II-XII Intact, Oriented x3 - Psychiatric Exam Psychiatric exam: Normal Affect, Normal Mood - Skin Skin Exam: Dry, Intact, Normal Color Discharge Plan - Discharge Medications Prescriptions: Esomeprazole Magnesium [Nexium] 40 mg PO BID #60 capsule. oxyCODONE [oxyCODONE Immediate Release Tab] 10 mg PO HS PRN #5 tab PRN Reason: Pain, Severe (8-10) Sucralfate [Carafate Tab] 1 gm PO QID #120 tab - Follow Up Plan Condition: CRITICAL Disposition: HOME/ ROUTINE Instructions: Gastrointestinal Bleeding (DC), Pneumococcal Vaccine for Adults ( DC), Hyponatremia (DC), Influenza Vaccine (DC), Alcohol Intoxication (DC), Abuse of Alcohol (DC), Fall Prevention (DC) Additional Instructions: 1. Discontinue taking prednisolone, as discussed, to avoid the risk of further mucosal damage 2. Continue taking the PPI therapy (pantoprozole) twice daily, 30-60 minutes before breakfast and dinner 3. Continue taking sucralfate (Carafate) four times daily, for the next month 4. Continue taking all other medications as previously prescribed 5. Follow up with your PMD Dr. Dean, and ortho Dr. Allan tomorrow 6. For any new or worsening concerns, contact your PCP immediately, or return to the ER Referrals: José Allan DO [Staff Provider] - Kamille Dean MD [Primary Care Provider] - Thao Schmid MD [Medical Doctor] - <Elsie Garcia - Last Filed: 04/27/17 16:14> Provider - Provider Date of Admission: 04/21/17 20:07 Attending physician: Elsie Garcia MD Primary care physician: Kamille Dean MD Hospital Course - Lab Results Lab Results: Most Recent Lab Values WBC 5.3 10^3/ul (4.5-11.0) D 04/26/17 06:40 RBC 2.48 10^6/uL (3.5-6.1) L 04/26/17 06:40 Hgb 9.0 g/dL (14.0-18.0) L 04/26/17 13:00 Hct 27.3 % (42.0-52.0) L 04/26/17 13:00 MCV 99.6 fl (80.0-105.0) 04/26/17 06:40 MCH 32.3 pg (25.0-35.0) 04/26/17 06:40 MCHC 32.4 g/dl (31.0-37.0) 04/26/17 06:40 RDW 16.7 % (11.5-14.5) H 04/26/17 06:40 Plt Count 108 10^3/uL (120.0-450.0) L 04/26/17 06:40 MPV 10.3 fl (7.0-11.0) 04/26/17 06:40 Gran % 68.1 % (50.0-68.0) H 04/26/17 06:40 Lymph % (Auto) 21.9 % (22.0-35.0) L 04/26/17 06:40 Citrus % (Auto) 9.2 % (1.0-6.0) H 04/26/17 06:40 Eos % (Auto) 0.6 % (1.5-5.0) L 04/26/17 06:40 Baso % (Auto) 0.2 % (0.0-3.0) 04/26/17 06:40 Gran # 3.64 (1.4-6.5) 04/26/17 06:40 Lymph # (Auto) 1.2 (1.2-3.4) 04/26/17 06:40 Citrus # (Auto) 0.5 (0.1-0.6) 04/26/17 06:40 Eos # (Auto) 0.0 (0.0-0.7) 04/26/17 06:40 Baso # (Auto) 0.01 K/mm3 (0.0-2.0) 04/26/17 06:40 PT 16.1 SECONDS (9.4-12.5) H 04/26/17 13:00 INR 1.39 (0.93-1.08) H 04/26/17 13:00 APTT 34.4 Seconds (25.1-36.5) 04/21/17 18:25 Sodium 134 mmol/L (132-148) 04/26/17 06:40 Potassium 3.5 mmol/L (3.6-5.0) L 04/26/17 06:40 Chloride 103 mmol/L (98-107) 04/26/17 06:40 Carbon Dioxide 24 mmol/L (21-33) 04/26/17 06:40 Anion Gap 11 (10-20) 04/26/17 06:40 BUN 10 mg/dL (7-21) 04/26/17 06:40 Creatinine 0.5 mg/dl (0.8-1.5) L 04/26/17 06:40 Est GFR ( Amer) > 60 04/26/17 06:40 Est GFR (Non-Af Amer) > 60 04/26/17 06:40 Random Glucose 102 mg/dL (70-110) 04/26/17 06:40 Calcium 8.2 mg/dL (8.4-10.5) L 04/26/17 06:40 Phosphorus 2.7 mg/dL (2.5-4.5) 04/24/17 06:45 Magnesium 1.8 mg/dL (1.7-2.2) 04/24/17 06:45 Total Bilirubin 4.4 mg/dL (0.2-1.3) H 04/26/17 06:40 Direct Bilirubin 4.1 mg/dL (0.0-0.4) H 04/21/17 18:25 AST 78 U/L (17-59) H D 04/26/17 06:40 ALT 69 U/L (7-56) H 04/26/17 06:40 Alkaline Phosphatase 105 U/L (38-126) 04/26/17 06:40 Ammonia 14 umol/L (9-33) 04/21/17 18:25 Lactate Dehydrogenase 319 U/L (333-699) L 04/21/17 18:25 Total Creatine Kinase < 20 U/L (35-230) L 04/21/17 18:25 Troponin I < 0.01 ng/mL 04/21/17 18:25 Total Protein 5.0 g/dL (5.8-8.3) L 04/26/17 06:40 Albumin 2.2 g/dL (3.0-4.8) L 04/26/17 06:40 Globulin 2.8 gm/dL 04/26/17 06:40 Albumin/Globulin Ratio 0.8 (1.1-1.8) L 04/26/17 06:40 Lipase 21 U/L (23-300) L 04/21/17 18:25 TSH 3rd Generation 1.33 mIU/mL (0.46-4.68) 04/22/17 05:00 Urine Color Yellow (YELLOW) 04/21/17 21:18 Urine Appearance Clear (CLEAR) 04/21/17 21:18 Urine pH 7.0 (4.7-8.0) 04/21/17 21:18 Ur Specific [place] 1.010 (1.005-1.035) 04/21/17 21:18 Urine Protein Trace mg/dL (<30 mg/dL) H 04/21/17 21:18 Urine Glucose (UA) Negative mg/dL (NEGATIVE) 04/21/17 21:18 Urine Ketones Negative mg/dL (NEGATIVE) 04/21/17 21:18 Urine Blood Negative (NEGATIVE) 04/21/17 21:18 Urine Nitrate Negative (NEGATIVE) 04/21/17 21:18 Urine Bilirubin Moderate (NEGATIVE) H 04/21/17 21:18 Urine Urobilinogen 0.2 E.U./dL (<1 E.U./dL) 04/21/17 21:18 Ur Leukocyte Esterase Negative Abdi/uL (NEGATIVE) 04/21/17 21:18 Urine RBC 0 - 2 /hpf (0-2) 04/21/17 21:18 Urine WBC 1 - 3 /hpf (0-6) 04/21/17 21:18 Ur Epithelial Cells None /hpf (0-5) 04/21/17 21:18 Amorphous Sediment Few 04/21/17 21:18 Urine Bacteria Many (NEG) 04/21/17 21:18 Coarse Granular Casts Trace /hpf (0-2) H 04/21/17 21:18 Urine Other Uyeast 04/21/17 21:18 Digoxin 1.4 ng/mL (0.8-2.0) 04/21/17 18:25 Alcohol, Quantitative < 10 mg/dL (0-10) 04/21/17 18:25 Blood Type A POSITIVE 04/21/17 19:13 Antibody Screen Negative 04/21/17 19:13 Crossmatch See Detail 04/21/17 19:13 BBK History Checked Patient has bt 04/21/17 19:13 Attending/Attestation - Attestation I have personally seen and examined this patient.: Yes I have fully participated in the care of the patient.: Yes I have reviewed all pertinent clinical information, including history, physical exam and plan: Yes Notes (Text): 04/27/17 16:13 Attending note; Patient seen and examined with resident. Patient is alert, awake and oriented. Tolerating diet well. Denies any abdominal pain. Patient is a 51-year-old male with past medical history of alcohol abuse, alcoholic hepatitis, dilated cardiomyopathy s/p single chamber ventricular pacemaker placement, chronic atrial fibrillation, thrombocytopenia, peptic ulcer disease and depression presented with complaints of abdominal pain and black tarry stools found to be hypotensive and significantly anemic with Hgb of 5.9. Status post 3 unit PRBC transfusion. Now s/p EGD which revealed large ulcer, likely source of bleeding. The patient was recently treated with prednisolone for alcoholic hepatitis. Steroid stopped. Currently no active bleeding. Hemoglobin is stable. GI evaluation appreciated. continue Protonix. Chronic alcohol use; patient was recently set up for outpatient alcohol rehabilitation. Patient refused and went home. Currently not interested in alcohol rehabilitation. Right wrist fracture; continue splint. follow-up with in 1 week. Chronic opiate abuse. Currently on low-dose oxycodone. Advised to avoid Tylenol and Motrin/NSAIDs. Prognosis is poor secondary to noncompliance with follow-up and chronic alcohol abuse. Upon discharge the patient will follow up with PMD Dr.Nina Dean. Diagnosis; Chronic alcohol abuse Gastric ulcer Status post blood transfusion Right wrist fracture Chronic opiate abuse
== END 2017-04-26 17:22 | disposition home or self-care (01) | DRG 174 ==
LOC: ED 18:09 → ERH 20:07 → ICU 23:08 → 5RNO 04-25 18:15
PROVIDERS: ADMIT Internal Medicine; ATTEND Internal Medicine
PROC: 30233N1 Transfusion of Nonautologous Red Blood Cells into Peripheral Vein, Percutaneous Approach (ICD-10-PCS; 2017-04-21)
PROC: 0DB68ZX Excision of Stomach, Via Natural or Artificial Opening Endoscopic, Diagnostic (ICD-10-PCS; principal; 2017-04-22 08:51)
DX: K28.4 Chronic or unspecified gastrojejunal ulcer with hemorrhage (principal); D69.6 Thrombocytopenia, unspecified; I42.0 Dilated cardiomyopathy; I95.9 Hypotension, unspecified; K70.10 Alcoholic hepatitis without ascites; E87.1 Hypo-osmolality and hyponatremia; I48.2 Chronic atrial fibrillation; F11.10 Opioid abuse, uncomplicated; K29.70 Gastritis, unspecified, without bleeding; F32.9 Major depressive disorder, single episode, unspecified; F10.10 Alcohol abuse, uncomplicated; K27.9 Peptic ulcer, site unspecified, unspecified as acute or chronic, without hemorrhage or perforation; D64.9 Anemia, unspecified; E03.9 Hypothyroidism, unspecified; E66.9 Obesity, unspecified; I10 Essential (primary) hypertension; M54.30 Sciatica, unspecified side; Z68.29 Body mass index [BMI] 29.0-29.9, adult; Z91.19 Patient's noncompliance with other medical treatment and regimen; Z98.84 Bariatric surgery status; Z95.0 Presence of cardiac pacemaker; Z87.891 Personal history of nicotine dependence

== ENCOUNTER 2017-05-05 14:22 | Inpatient (IN) | payer MEDICAID ==
--- NOTE | 2017-05-05 15:02 | ED PDOC ---
Arrival/HPI - General Chief Complaint: Palpitations Time Seen by Provider: 05/05/17 14:49 Historian: Patient - History of Present Illness Narrative History of Present Illness (Text): 05/05/17 15:03 pt p/w + sudden onset of palpitations/fluttering in his chest this morning, after pt was awake from sleep; pt states + felt slightly lightheaded, mild weakness, +nausea, + mild sob, no focal chest pain, no loc, no chills/sweats, no abd pain, no n/v, no numbness/tingling, no urinary/bowel changes, no fall/ trauma/travel, no sick contact; pt states his symptoms are similiar to his prior atrial fib hx; pt also describes 3 weeks onset of atrumatic right wrist pain; pt states he has been to the ED x [address] Mcmahon for the same complaint; pt express concern; pt is here for further eval; pt's without other complaints pt last alcohol drink was 03/20/2017 PCP: Dr Valentin Time/Duration: Other (earlier this morning) Symptom Onset: Sudden Symptom Course: Improving Activities at Onset: Rest Context: Home Past Medical History - Provider Review Nursing Documentation Reviewed: Yes - Travel History Have you recently traveled outside [place] w/in the past 3 mons?: No - Past History Past History: No Previous (hx of afib, svt) - Infectious Disease Hx of Infectious Diseases: None - Tetanus Immunization Tetanus Immunization: Unknown - Cardiac Hx Cardiac Disorders: Yes Hx Atrial Fibrillation: Yes Hx Hypertension: Yes Hx Pacemaker: Yes - Pulmonary Hx Respiratory Disorders: Yes (shortness of breath,CIGARETTES AND CIGAR SMOKER.OCCASIONAL) - Neurological Hx Neurological Disorder: Yes Hx Migraine: Yes - HEENT Hx HEENT Disorder: Yes (eyeglasses) Other/Comment: 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 related noise exposure - Renal Hx Renal Disorder: No - Endocrine/Metabolic Hx Endocrine Disorders: No - Hematological/Oncological Hx Cancer: No - Integumentary Hx Dermatological Disorder: No Other/Comment: tatoo - Musculoskeletal/Rheumatological Hx Musculoskeletal Disorders: Yes (RIB FX) Hx Back Pain: Yes Hx Falls: Yes Hx Fractures: Yes (Rib) Other/Comment: edema to lower extremeties - Gastrointestinal Hx Gastrointestinal Disorders: Yes (ACUTE PANCREATITIS) Hx Diverticulitis: Yes Hx Liver Failure: Yes (Abnormal Liver function test) Hx Pancreatitis: Yes - Genitourinary/Gynecological Hx Genitourinary Disorders: No - Psychiatric Hx Psychophysiologic Disorder: Yes Hx Anxiety: Yes Hx Depression: Yes Hx Substance Use: No Other/Comment: alcohol abuse and withdrawal/ delirium.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 [employer] - Surgical History Hx Mastectomy: No - Anesthesia Hx Anesthesia: Yes Hx Anesthesia Reactions: No Hx Malignant Hyperthermia: No - Suicidal Assessment Feels Threatened In Home Enviroment: No Family/Social History - Physician Review Nursing Documentation Reviewed: Yes Family/Social History: No Known Family HX Smoking Status: Former Smoker Hx Alcohol Use: Yes (last drink was 03/20/2017) Amount per day: 6 Hx Substance Use: No Hx Substance Use Treatment: No Allergies/Home Meds Allergies/Adverse Reactions: Allergies No Known Allergies Allergy (Verified 05/05/17 14:33) Review of Systems - Review of Systems Constitutional: Normal Eyes: Normal ENT: Normal Respiratory: SOB Cardiovascular: Palpitations. absent: Chest Pain Gastrointestinal: Nausea. absent: Abdominal Pain Genitourinary Male: Normal Musculoskeletal: Normal Skin: Normal Neurological: Dizziness Endocrine: Normal. absent: Diaphoresis Hemo/Lymphatic: Normal Psychiatric: Normal Physical Exam Vital Signs Reviewed: Yes Vital Signs Temp Pulse Pulse Resp BP Pulse Ox 05/05/17 22:30 68 18 125/86 99 05/05/17 19:33 117 H 140/83 05/05/17 18:51 132/79 05/05/17 17:50 86 05/05/17 16:55 69 18 138/69 98 05/05/17 14:58 98.2 F 73 18 142/71 98 Temperature: Afebrile Blood Pressure: Normal Pulse: Regular Respiratory Rate: Normal Appearance: Positive for: Well-Appearing Pain Distress: None Mental Status: Positive for: Alert and Oriented X 3 - Systems Exam Head: Present: Atraumatic, Normocephalic Pupils: Present: PERRL Extroacular Muscles: Present: EOMI Conjunctiva: Present: Other (slight icteric) Ears: Present: Normal Mouth: Present: Moist Mucous Membranes Pharnyx: Present: Normal Nose (Internal): Present: Normal Inspection Neck: Present: Normal Range of Motion Respiratory/Chest: Present: Clear to Auscultation Cardiovascular: Present: Regular Rate and Rhythm Abdomen: Present: Normal Bowel Sounds Back: Present: Normal Inspection Upper Extremity: Present: Normal Inspection, Normal ROM, NORMAL PULSES, Neurovascularly Intact, Capillary Refill < 2s Lower Extremity: Present: Normal Inspection, Edema, NORMAL PULSES, Normal ROM, Swelling, Neurovascularly Intact, Capillary Refill < 2 s Neurological: Present: GCS=15, CN II-XII Intact Skin: Present: Warm, Other (cap refill ~ 1sec, no ulcerations, no petechiae, + mild pallor) Psychiatric: Present: Alert, Oriented x 3 Medical Decision Making ED Course and Treatment: 05/05/17 15:08 Impression: atrial fib/palpitations; right wrist pain i have consider all the differential diagnosis regarding pt's chief medical complaints/clinical findings, including but are not limited to: recurrent atrial fib/palpitations, r/o hypovolemia; right wrist pain A/P: atrial fib/palpitations, right wrist pain - labs - iv - xray - us - observe - supportive care 05/05/2017 16:02 Extremity Ultrasound IMPRESSION: No sonographic evidence for deep venous thrombosis in the visualized segments of both lower extremities. Dictator: Aaron Srivastava MD 05/05/2017 16:18 Chest X-ray IMPRESSION: No active pulmonary disease. Dictator: Charisse Caal MD 05/05/2017 16:19 Wrist X-Ray IMPRESSION: Acute transverse nondisplaced impacted fracture in the distal radius without significant angulation. Dictator: Isa Caal MD 05/05/171999 pt is doing well currently pt was noted to have elevated HR, will prescribed cardizem after 1 dose of cardizem, HR < 100 pt remained chest pain free pt is made aware of his medical results agrees with admission I spoke to hospitalists network operations center technician, made aware, agrees with admission; resident contacted and also made aware Re-evaluation Time: 20:00 Reassessment Condition: Improved - Lab Interpretations Lab Results: 05/05/17 18:10 05/05/17 18:10 Lab Results 05/05/17 18:10: Alcohol, Quantitative < 10 05/05/17 18:10: Sodium 137, Chloride 105, Potassium 3.3 L, Carbon Dioxide 25, Anion Gap 11, BUN 4 L, Creatinine 0.5 L, Est GFR ( Amer) > 60, Est GFR ( Non-Af Amer) > 60, Random Glucose 90, Calcium 8.6, Total Bilirubin 3.4 H, AST 61 H D, ALT 52, Alkaline Phosphatase 126, Lactate Dehydrogenase 308 L, Total Creatine Kinase < 20 L, Troponin I < 0.01, NT-Pro-B Natriuret Pep 3470 H, Total Protein 5.4 L, Albumin 2.4 L, Globulin 3.1, Albumin/Globulin Ratio 0.8 L 05/05/17 18:10: pO2 74 H, VBG pH 7.43, VBG pCO2 40.0, VBG HCO3 26.5, VBG Total CO2 27.7, VBG O2 Sat (Calc) 96.8 H, VBG Base Excess 2.0, VBG Potassium 3.4 L, Sodium 135.0, Chloride 107.0, Glucose 99, Lactate 1.0, FiO2 21.0, Venous Blood Potassium 3.4 L 05/05/17 18:10: PT 16.5 H, INR 1.44 H, APTT 32.2 05/05/17 18:10: WBC 2.8 L* D, RBC 2.72 L, Hgb 8.6 L, Hct 26.5 L, MCV 97.4, MCH 31.6, MCHC 32.5, RDW 15.2 H, Plt Count 123, MPV 9.9, Gran % 64.4, Lymph % (Auto ) 25.7, [place] % (Auto) 9.5 H, Eos % (Auto) 0.0 L, Baso % (Auto) 0.4, Gran # 1.83 , Lymph # (Auto) 0.7 L, [place] # (Auto) 0.3, Eos # (Auto) 0.0, Baso # (Auto) 0.01 05/05/17 16:48: Urine Color Yellow, Urine Appearance Clear, Urine pH 6.0, Ur Specific [place] 1.010, Urine Protein Negative, Urine Glucose (UA) Negative, Urine Ketones Negative, Urine Blood Negative, Urine Nitrate Negative, Urine Bilirubin Negative, Urine Urobilinogen 0.2, Ur Leukocyte Esterase Negative I have reviewed the lab results: Yes Interpretation: Abnormal lab values (persistent low H/H; + elevated BNP) - RAD Interpretation Narrative RAD Interpretations (Text): 05/05/17 23:27 05/05/2017 16:02 Extremity Ultrasound IMPRESSION: No sonographic evidence for deep venous thrombosis in the visualized segments of both lower extremities. Dictator: Aaron Srivastava MD 05/05/2017 16:18 Chest X-ray IMPRESSION: No active pulmonary disease. Dictator: Charisse Caal MD 05/05/2017 16:19 Wrist X-Ray IMPRESSION: Acute transverse nondisplaced impacted fracture in the distal radius without significant angulation. Dictator: Isa Caal MD Radiology Orders: 05/05/17 14:59 CHEST TWO VIEWS (PA/LAT) [RAD] Stat DUPLEX LOWER EXTRM VEIN BILAT [US] Stat 05/05/17 15:02 WRIST, RIGHT 3 VIEWS [RAD] Stat Environmental Manager: Radiologist - EKG Interpretation EKG Interpretation (Text): 05/05/17 15:10 Demand pacemaker rhyhtm at 75 bpm, atrial fib, + ectopy, non-specific st-t changes, ABNL EKG; changes compare with old ekg 04/2017 Interpreted by ED Physician: Yes Type: 12 lead EKG Comparison: Different from prev. EKG - Medication Orders Current Medication Orders: Atenolol (Tenormin) 25 mg PO DAILY ALLIE Digoxin (Digoxin) 0.125 mg PO 1400 ALLIE Diltiazem HCl (Cardizem) 5 mg IVP Q6H PRN PRN Reason: HR > 120 Folic Acid (Folic Acid) 1 mg PO DAILY ALLIE Furosemide (Lasix) 40 mg IVP Q12 ALLIE Levothyroxine Sodium (Synthroid) 25 mcg PO 0600 ALLIE Magnesium Oxide (Mag-Ox) 400 mg PO BID ALLIE Midodrine (Proamatine) 10 mg PO TID ALLIE Multivitamins/Minerals (Therapeutic-M Tab) 1 tab PO 0800 ALLIE Oxycodone HCl (Oxycodone Immediate Release Tab) 10 mg PO HS PRN PRN Reason: Pain, severe (8-10) Pantoprazole Sodium (Protonix Ec Tab) 40 mg PO 0600,1600 ALLIE Potassium Chloride (Klor-Con 10) 20 meq PO BRKDIN ALLIE Sucralfate (Carafate Tab) 1 gm PO ACHS ALLIE Thiamine HCl (Vitamin B1 Tab) 100 mg PO DAILY ALLIE Verapamil HCl (Calan Tab) 80 mg PO TID ALLIE Discontinued Medications Diltiazem HCl (Cardizem) 10 mg IVP STAT STA Stop: 05/05/17 19:31 Last Admin: 05/05/17 19:34 Dose: Furosemide (Lasix) 40 mg IVP STAT STA Stop: 05/05/17 15:00 Last Admin: 05/05/17 18:51 Dose: 10 mg Comments: Ordered By Dr. Carlo ESPINOZA Blood Pressure Document 05/05/17 18:51 RD (Rec: 05/05/17 18:51 RD [facility] [id number]) Blood Pressure Blood Pressure (100/60-150/90) 132/79 IVP Administration Document 05/05/17 18:51 RD (Rec: 05/05/17 18:[address] [facility] [id number]) Charges for Administration # of IVP Administrations 1 Disposition/Present on Arrival - Present on Arrival Any Indicators Present on Arrival: No History of DVT/PE: No History of Uncontrolled Diabetes: No Urinary Catheter: No History of Decub. Ulcer: No History Surgical Site Infection Following: None - Disposition Have Diagnosis and Disposition been Completed?: Yes Diagnosis: Atrial fibrillation with rapid ventricular response, Anemia, CHF (congestive heart failure), Pancytopenia Disposition: HOSPITALIZED Disposition Time: 20:00 Patient Plan: Admission Condition: STABLE
--- NOTE | 2017-05-05 16:03 | US ---
HISTORY: Leg pain and swelling. Evaluate for DVT PHYSICIAN(S): Aaron Srivastava MD. TECHNIQUE: Duplex sonography and color-flow Doppler with graded compression were used to evaluate the deep venous systems of both lower extremities. FINDINGS: The visualized deep venous systems of both lower extremities are sonographically normal and compressible. Normal wave forms and augmentation are seen. There is no sonographic evidence for deep venous thrombosis in the visualized segments of both lower extremities. IMPRESSION: No sonographic evidence for deep venous thrombosis in the visualized segments of both lower extremities.
--- NOTE | 2017-05-05 16:19 | RAD ---
HISTORY: COMPARISON: 04/22/2017. TECHNIQUE: Chest PA and lateral FINDINGS: LINES AND TUBES: None. LUNG AND PLEURA: The lungs are well inflated and clear. HEART AND MEDIASTINUM: The heart is not enlarged. . Stable position of a left-sided unipolar transvenous permanent pacing device. The hilar and mediastinal contours are within normal limits. SKELETAL STRUCTURES: The bony structures are within normal limits for the patient's age. VISUALIZED UPPER ABDOMEN: Normal. OTHER FINDINGS: None. IMPRESSION: No active pulmonary disease.
--- NOTE | 2017-05-05 16:20 | RAD ---
PROCEDURE: Right Wrist Radiographs. HISTORY: 3 weeks right wrist pain COMPARISON: None. FINDINGS: BONES: There is an acute transverse nondisplaced impacted fracture in the distal radius without significant angulation. Bone alignment and mineralization are normal. JOINTS: The proximal and distal carpal rows are maintained. The joint spaces are preserved. No dislocation. SOFT TISSUES: Normal. OTHER FINDINGS: None. IMPRESSION: Acute transverse nondisplaced impacted fracture in the distal radius without significant angulation.
[2017-05-05 17:13] LABS: URINE BILIRUBIN NEGATIVE (NEGATIVE); URINE BLOOD NEGATIVE (NEGATIVE); URINE GLUCOSE (UA) NEGATIVE (NEGATIVE); URINE LEUKOCYTE ESTERASE NEGATIVE Leu/uL (NEGATIVE); URINE NITRATE NEGATIVE (NEGATIVE); URINE PROTEIN NEGATIVE mg/dL (<30 mg/dL); URINE UROBILINOGEN 0.2 E.U./dL (<1 E.U./dL)
[2017-05-05 17:18] LABS: URINE APPEARANCE CLEAR (CLEAR); URINE COLOR YELLOW (YELLOW)
[2017-05-05 18:30] LABS: VENOUS BLOOD GAS PO2 74 mm/Hg (30-55); VENOUS BLOOD PH 7.43 (7.32-7.43)
[2017-05-05 18:33] LABS: BASO # 0.01 K/mm3 (0.0-2.0); BASO % 0.4 % (0.0-3.0); GRAN # 1.83 (1.4-6.5); GRAN % 64.4 % (50.0-68.0); HEMOGLOBIN 8.6 g/dL (14.0-18.0); LYMPH # 0.7 (1.2-3.4); LYMPH % 25.7 % (22.0-35.0); MEAN CELL VOLUME 97.4 fl (80.0-105.0); MEAN CORPUSCULAR HEMOGLOBIN 31.6 pg (25.0-35.0); MEAN CORPUSCULAR HGB CONC 32.5 g/dl (31.0-37.0); MEAN PLATELET VOLUME 9.9 fl (7.0-11.0); MONO # 0.3 (0.1-0.6); MONO % 9.5 % (1.0-6.0); RBC 2.72 10^6/uL (3.5-6.1); RED CELL DISTRIBUTION WIDTH 15.2 % (11.5-14.5)
[2017-05-05 18:37] LABS: WHITE BLOOD COUNT 2.8 10^3/ul (4.5-11.0)
[2017-05-05 18:44] LABS: PROTHROMBIN TIME 16.5 SECONDS (9.4-12.5)
[2017-05-05 18:45] LABS: INR 1.44 (0.93-1.08); PARTIAL THROMBOPLASTIN TIME 32.2 Seconds (25.1-36.5)
[2017-05-05 18:50] LABS: ALB/GLOB RATIO 0.8 (1.1-1.8); ALBUMIN 2.4 g/dL (3.0-4.8); ALT/SGPT 52 U/L (7-56); AST/SGOT 61 U/L (17-59); B-TYPE NATRIURETIC PEPTIDE 3470 pg/mL (0-450); BLOOD UREA NITROGEN 4 mg/dL (7-21); CALCIUM 8.6 mg/dL (8.4-10.5); GFR AFRICAN-AMERICAN > 60; GFR NON-AFRICAN AMERICAN > 60; TROPONIN I < 0.01 ng/mL
[2017-05-05] MEDS ORDERED: oxyCODONE 5 mg Immediate Release Tab PO PRN (22:09)
[2017-05-06 00:36] VITALS: BMI 33.9
--- NOTE | 2017-05-06 02:06 | CP.PCM.HP ---
<ZurdoKarson - Last Filed: 05/06/17 02:26> History of Present Illness - History of Present Illness History of Present Illness: Internal Medicine H&P for Hospitalist Service CC: Shortness of breath, palpitations, and bilateral LE swelling HPI: This is a 51 M with a PMH of dilated cardiomyopathy s/p single chamber ventricular pacemaker placement, chronic atrial fibrillation, alcohol abuse, thrombocytopenia, peptic ulcer disease, and depression who presents to [facility] [place] with complaints of acute episode of palpitations present on awakening today and worsening shortness of breath and bilateral LE edema. Patient reports compliance with alcohol cessation, and hasn't had a drink since Mar 20 2017. Denies any substance use, and reports compliance with all medications since discharge. Describes waking with palpitations consistent with prior episodes of Afib with RVR, but reports improvement within minutes, so he ignored it and went about his morning routine, but when the palpitations returned and got worse , he presented to [facility]. Reports some increased shortness of breath, but only with significant exertion; no shortness of breath ambulating at home or walking blocks at a time, denies abrupt episodes of shortness of breath associated with positioning. Does admit to increased PO fluids intake; reports drinking excessive water daily to occupy his mind as he is constantly thirsty and "used to having a bottle in my hands, and I need to have something to distract myself " (meaning water to distract from not drinking alcohol). Denies sensation of electric shock or punch in chest. Denies fevers, chills, nausea, emesis, diarrhea, chest pain, dyspnea, productive cough, hematemesis. All other ROS in 12-system review negative. PMHx:dilated cardiomyopathy s/p single chamber ventricular pacemaker placement, chronic atrial fibrillation, alcohol abuse, thrombocytopenia, peptic ulcer disease and depression PSHx:Single chamber ventricular pacemaker placement SHx: etoh abuse last drink first week of March 2017. denied tobacco/illicit drugs FamHx:noncontributory PMD: None Present on Admission - Present on Admission Any Indicators Present on Admission: No History of DVT/PE: No History of Uncontrolled Diabetes: No Urinary Catheter: No Review of Systems - Review of Systems All systems: reviewed and no additional remarkable complaints except (as per HPI ) Past Patient History - Infectious Disease Hx of Infectious Diseases: None - Tetanus Immunizations Tetanus Immunization: Unknown - Past Medical History & Family History Past Medical History?: Yes - Past Social History Smoking Status: Smoker Currrent Status Unknown - CARDIAC Hx Cardiac Disorders: Yes Hx Cardia Arrhythmia: Yes Hx Congestive Heart Failure: Yes Hx Hypertension: Yes Hx Pacemaker: Yes - PULMONARY Hx Respiratory Disorders: Yes (shortness of breath,CIGARETTES AND CIGAR SMOKER.OCCASIONAL) - NEUROLOGICAL Hx Neurological Disorder: Yes Hx Dizziness: Yes Hx Migraine: Yes - HEENT Hx HEENT Problems: Yes (eyeglasses) Other/Comment: 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 related noise exposure - RENAL Hx Chronic Kidney Disease: No - ENDOCRINE/METABOLIC Hx Endocrine Disorders: No - HEMATOLOGICAL/ONCOLOGICAL Hx Cancer: No - INTEGUMENTARY Hx Dermatological Problems: No Other/Comment: tatoo - MUSCULOSKELETAL/RHEUMATOLOGICAL Hx Musculoskeletal Disorders: Yes (RIB FX) Hx Back Pain: Yes Hx Falls: Yes Hx Fractures: Yes (Rib) Other/Comment: edema to lower extremeties - GASTROINTESTINAL Hx Gastrointestinal Disorders: Yes (ACUTE PANCREATITIS) Hx Diverticulitis: Yes Hx Gastroesophageal Reflux: Yes Hx Liver Failure: Yes (Abnormal Liver function test) Hx Pancreatitis: Yes - GENITOURINARY/GYNECOLOGICAL Hx Genitourinary Disorders: No - PSYCHIATRIC Hx Psychophysiologic Disorder: Yes Hx Anxiety: Yes Hx Depression: Yes Other/Comment: alcohol abuse and withdrawal/ delirium.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 [employer] - SURGICAL HISTORY Hx Surgeries: Yes Hx Gastric Bypass Surgery: Yes Hx Mastectomy: No Hx Open Heart Surgery: Yes - ANESTHESIA Hx Anesthesia: Yes Hx Anesthesia Reactions: No Hx Malignant Hyperthermia: No Meds Allergies/Adverse Reactions: Allergies Allergy/AdvReac Type Severity Reaction Status Date / Time No Known Allergies Allergy Verified 05/05/17 14:33 Physical Exam - Constitutional Appears: Non-toxic, No Acute Distress - Head Exam Head Exam: ATRAUMATIC, NORMAL INSPECTION, NORMOCEPHALIC - Eye Exam Eye Exam: EOMI, Normal appearance. absent: Conjunctival injection, Scleral icterus Pupil Exam: absent: Irregular, Unequal - ENT Exam ENT Exam: Mucous Membranes Moist - Neck Exam Neck exam: Positive for: Full Rom, Normal Inspection - Respiratory Exam Respiratory Exam: Decreased Breath Sounds (mildly decreased breath sounds in all [place], otherwise clear to auscultation), NORMAL BREATHING PATTERN. absent : Accessory Muscle Use, Chest Wall Tenderness, Rales, Rhonchi, Wheezes, Respiratory Distress - Cardiovascular Exam Cardiovascular Exam: REGULAR RHYTHM, RRR (RRR with respiratory variation), +S1, +S2. absent: Bradycardia, Tachycardia, Irregular Rhythm, JVD, +S4 - GI/Abdominal Exam GI & Abdominal Exam: Normal Bowel Sounds, Organomegaly (palpable liver 2-3 cm below ), Soft. absent: Diminished Bowel Sounds, Hyperactive Bowel Sounds, Hypoactive Bowel Sounds, Tenderness - Rectal Exam Rectal Exam: Deferred - Extremities Exam Extremities exam: Positive for: calf tenderness (mild bilateral calf tenderness) , full ROM, pedal edema (+3 pitting edema in bilateral LE from feet to bottom 3/ 4th of shins). Negative for: pedal pulses present (unable to palpate through pitting edema) Additional comments: belinda wrap around R wrist for fracture from fall weeks ago, moving fingers spontaneously and able to use fingers for fine motor control - Neurological Exam Neurological exam: Alert, Oriented x3 - Psychiatric Exam Psychiatric exam: Normal Affect, Normal Mood - Skin Skin Exam: Dry, Intact, Normal Color, Warm Results - Vital Signs Recent Vital Signs: Last Vital Signs Temp 98.6 F 05/05/17 23:31 Pulse 89 05/05/17 23:31 Resp 20 05/05/17 23:31 BP 115/83 05/05/17 23:31 Pulse Ox 99 05/05/17 22:30 - Labs Result Diagrams: 05/05/17 18:10 05/05/17 18:10 Assessment & Plan - Assessment and Plan (Free Text) Assessment: This is a 51 M with a PMH of dilated cardiomyopathy s/p single chamber ventricular pacemaker placement, chronic atrial fibrillation, alcohol abuse, thrombocytopenia, peptic ulcer disease, and depression who presents to [facility] with complaints of acute episode of palpitations present on awakening today and worsening shortness of breath and bilateral LE edema. He is being admitted for LE edema and shortness of breath concerning for heart failure, and palpitations concerning for afib. Plan: 1) Shortness of breath with bilateral LE edema -CHF vs fluid overload due to excessive PO intake vs diuresis failure -changing from PO lasix 40 BID to IV -I's and O's, daily weights -BNP 3470 -Trop x1 in ED negative, trending 2 more -Cardio (Dr. Collins) consulted, appreciate all recs -continue home tenormin, digoxin, verapamil -PRN Diltiazem IV 5mg q6h for HR > 120 2) Hx of Alcohol hepatitis -Patient has a history of transaminitis; liver enzymes currently only mildly elevated -No steroids being used 2/2 risk of bleeding in the patient -Was told he may need liver transplant 2 admissions ago, knows has to be sober 6 months for transplant eligibility -Alcohol level < 10 on admission, no signs of tremors or DTs 3) Alcoholic Bone Marrow Suppression -currently leukopenic at 2.8, platelets at 123 -Cont to monitor 4) Dilated Cardiomyopathy - Cardiology consulted - Continue with cardiac medication regimen as listed above 5) Hypertension - BP well controlled, continue to monitor 8. Hyperbilirubinemia - Considerably improved over prior elevations, 3.4 today, was 4.4 at last discharge - Cont to monitor 9. Depression - continue home meds, if becomes overly depressed will consult Psych 10. Peptic ulcer disease - Pepcid 20 mg PO daily 11. Hypothyroidism - Cont Synthroid GI Ppx: Protonix DVT ppx: SCDs, avoid AC in setting of poor liver fxn Patient seen, reviewed, and discussed with attending, Dr. Womack. Decision To Admit - Pt Status Changed To: Hospital Disposition Of: Inpatient Admission - Admit Certification Admit to Inpatient:: After my assessment, the patient will require hospitalization for at least two midnights. This is because of the severity of symptoms shown, intensity of services needed, and/or the medical risk in this patient being treated as an outpatient. - . Bed Request Type: Remote Telemetry <Shanta CRENSHAW,Catarino - Last Filed: 05/06/17 05:54> Results - Vital Signs Recent Vital Signs: Last Vital Signs Temp 98.6 F 05/05/17 23:31 Pulse 89 05/05/17 23:31 Resp 20 05/05/17 23:31 BP 115/83 05/05/17 23:31 Pulse Ox 99 05/05/17 22:30 - Labs Result Diagrams: 05/05/17 18:10 05/05/17 18:10 Attending/Attestation - Attestation I have personally seen and examined this patient.: Yes I have fully participated in the care of the patient.: Yes I have reviewed all pertinent clinical information: Yes Notes (Text): -I agree with the above H&P completed by the resident physician with the following additions and/or changes: -The patient is a 51 year old man with a history of CHF (EF=30-35%)(s/p pacemaker placement), paroxysmal atrial fibrillation (not on anticoagulation due to history of GIB), PUD, depression and chronic alcohol abuse, presenting with intermittent atrial fibrillation with RVR (QK=698g in ED) and bilateral lower extremity edema, presumably due to early CHF exacerbation. Although he denies chest pain, orthopnea or PND, he does report intermittent palpitations and SOB for the past 12 hours. He also reports compliance with his home meds ( including Lasix). His last alcoholic drink was Mar 20 2017. Because the episodes of uncontrolled heart rate are occurring intermittently (alternating with bouts of normal heart rates), he will be placed on IV Diltiazem PRN for HR> 120. Otherwise, his home regimen for rate control (ie- Atenolol, Verapamil and Digoxin) will be continued. In addition, he will be started on Lasix 40mg IV Q12 for diuresis. Cardiology has been consulted. No SC Heparin for DVT prophylaxis (only SCDs) given his recent GI bleed earlier this month.
[2017-05-06] MEDS ORDERED: Potassium Chloride 40 mEq/30 ml LIQ UD PO ONE (02:30)
[2017-05-06] MEDS ORDERED: Levothyroxine 25 MCG TAB PO SCH (06:00)
[2017-05-06] MEDS: Pantoprazole 40 mg EC Tab PO SCH ×2 (06:29→17:27)
[2017-05-06] MEDS: Potassium Chloride 10 mEq ER Tab PO SCH ×2 (06:32→17:27)
[2017-05-06 08:27] LABS: BASO # 0.01 K/mm3 (0.0-2.0); BASO % 0.4 % (0.0-3.0); EOS % 1.3 % (1.5-5.0); GRAN # 1.34 (1.4-6.5); LYMPH # 0.7 (1.2-3.4); LYMPH % 29.4 % (22.0-35.0); MEAN CELL VOLUME 98.6 fl (80.0-105.0); MEAN CORPUSCULAR HEMOGLOBIN 31.5 pg (25.0-35.0); MEAN CORPUSCULAR HGB CONC 31.9 g/dl (31.0-37.0); MEAN PLATELET VOLUME 10.3 fl (7.0-11.0); MONO # 0.3 (0.1-0.6); MONO % 11.9 % (1.0-6.0); RBC 2.86 10^6/uL (3.5-6.1); RED CELL DISTRIBUTION WIDTH 15.4 % (11.5-14.5)
[2017-05-06 08:40] LABS: WHITE BLOOD COUNT 2.4 10^3/ul (4.5-11.0)
[2017-05-06 08:46] LABS: INR 1.3 (0.93-1.08); PARTIAL THROMBOPLASTIN TIME 30.5 Seconds (25.1-36.5)
[2017-05-06 08:56] LABS: ALB/GLOB RATIO 0.8 (1.1-1.8); ALBUMIN 2.4 g/dL (3.0-4.8); ALT/SGPT 49 U/L (7-56); AST/SGOT 63 U/L (17-59); BLOOD UREA NITROGEN 6 mg/dL (7-21); CALCIUM 8.9 mg/dL (8.4-10.5); GFR AFRICAN-AMERICAN > 60; GFR NON-AFRICAN AMERICAN > 60; MAGNESIUM 1.8 mg/dL (1.7-2.2)
[2017-05-06 08:59] LABS: TROPONIN I < 0.01 ng/mL
--- NOTE | 2017-05-06 10:05 | CARD ---
APPROVED REPORT EKG Measurement Heart [id number] <Conclusion> A. Fib. 2 V. Paced beats STTW changes c/w madelainei
[2017-05-06] MEDS: Magnesium Oxide 400 mg Tab UD PO SCH ×2 (10:35→17:27)
[2017-05-06] MEDS: oxyCODONE 5 mg Immediate Release Tab PO PRN ×2 (11:36→21:10)
[2017-05-06] MEDS: Multivitamin With Minerals Tab PO SCH (12:13)
[2017-05-06] MEDS: Digoxin 125 mcg (0.125 mg) Tab PO SCH (15:48)
[2017-05-06] MEDS ORDERED: Alum-Mag Hydrox-Simethicone Susp (30 mL) PO ONE ×2 (22:28→22:55)
--- NOTE | 2017-05-07 01:44 | CON ---
DATE: 05/06/2017 LOCATION: The patient in room 373, bed 1. REASON FOR CONSULTATION: Atrial fibrillation, palpitation, status post pacemaker insertion. HISTORY OF PRESENT ILLNESS: The patient is a 51-year-old male, known case of paroxysmal atrial fibrillation, status post permanent pacemaker insertion for sick sinus syndrome, history of alcohol cardiomyopathy. The patient used to drink heavy. He recently states that he stopped drinking. The patient admitted to the hospital with palpitations at rest. The patient denies any chest pain. The patient at present asymptomatic, lying flat at bed without any chest pain, shortness of breath, palpitation. PAST MEDICAL HISTORY: Significant for paroxysmal atrial fibrillation, sick sinus syndrome, status post pacemaker insertion, thrombocytopenia, dilated cardiomyopathy secondary to alcohol abuse, history of peptic ulcer disease. The patient not on anticoagulation because of prior episodes of heavy alcohol intoxication and multiple episode of fall. He says that he stopped alcohol drinking. PAST SURGICAL HISTORY: Significant for gastric bypass, history of peptic ulcer disease, history permanent pacemaker insertion. FAMILY HISTORY: Positive for coronary artery disease. SOCIAL HISTORY: Active tobacco abuse. He used to drink heavy. He says recently he stopped drinking. He had multiple admissions with alcoholic intoxication in the past. Also had multiple admissions with atrial fibrillation with rapid rate. ALLERGIES: THE PATIENT DENIES ANY ALLERGIES. MEDICATIONS: The patient's home medication included verapamil 80 mg t.i.d., Carafate 1 g p.o. q.i.d., thiamine 100 mg p.o. daily, midodrine 10 mg p.o. t.i.d., mag oxide 400 mg b.i.d., Synthroid 25 mcg p.o. daily, Lasix 20 b.i.d., folic acid 1 mg daily, digoxin 0.125 daily, atenolol 25 daily. REVIEW OF SYSTEMS: All other systems are reviewed. Positives mentioned in the history, otherwise negative. PHYSICAL EXAMINATION: VITAL SIGNS: Blood pressure 95/55, respirations 18, pulse 62, temperature 97.7. HEENT: Head is normocephalic. Eyes: Pupils normal. Conjunctivae slightly pale. NECK: JVP low. Carotids equal. THORAX: AP diameter normal. LUNGS: Clear. CARDIOVASCULAR: S1 and S2. ABDOMEN: Soft. No tenderness. No organomegaly. EXTREMITIES: No clubbing. No cyanosis. The patient had a fall and has a soft cast on the right forearm. LABORATORY DATA: WBC 2.4, hemoglobin 9.0, hematocrit 28.2, platelets 117. Sodium 137, potassium 3.9, BUN 6, creatinine 0.5, glucose 83. Calcium and phosphorus normal. Bilirubin 3.0, AST 63, ALT 49. Troponin x2 negative. TSH 7.03. Chest x-ray clear. EKG showed atrial fibrillation, moderate rates, 2 pacemaker captured beat seen. SVT changes. DIAGNOSES: Palpitation; atrial fibrillation; leukopenia; thrombocytopenia; anemia; history of alcohol abuse, the patient states that he stopped recently; history of multiple falls. Last echocardiogram showed left ventricular ejection fraction 0-35%, dilated cardiomyopathy, history of permanent pacemaker insertion, mitral regurgitation, tricuspid regurgitation. The patient's prothrombin time 15.0, INR 1.3. PLAN: The patient is on verapamil 80 mg t.i.d., Carafate 1 tablet q.i.d., digoxin 0.125 daily, folic acid 1 mg daily, potassium 20 mEq b.i.d., Lasix 40 mg IV q. 12 hours, mag oxide 400 mg p.o. b.i.d., midodrine 10 mg p.o. t.i.d., Protonix 40 b.i.d., Synthroid 25 mcg daily, atenolol 25 mg daily, thiamine 100 mg daily. Since the TSH is high, we will increase the Synthroid to 50 mcg p.o. daily and we will follow with you. Tere Collins MD
[2017-05-07] MEDS: Pantoprazole 40 mg EC Tab PO SCH ×2 (05:01→17:16)
[2017-05-07] MEDS: Levothyroxine 50 MCG TAB PO SCH (05:01)
[2017-05-07] MEDS: oxyCODONE 5 mg Immediate Release Tab PO PRN ×2 (05:01→18:22)
[2017-05-07 07:51] LABS: BASO # 0.01 K/mm3 (0.0-2.0); BASO % 0.3 % (0.0-3.0); EOS % 0.6 % (1.5-5.0); GRAN # 2.11 (1.4-6.5); GRAN % 65.9 % (50.0-68.0); HEMOGLOBIN 10.2 g/dL (14.0-18.0); LYMPH # 0.6 (1.2-3.4); LYMPH % 18.8 % (22.0-35.0); MEAN CELL VOLUME 98.5 fl (80.0-105.0); MEAN CORPUSCULAR HEMOGLOBIN 31.4 pg (25.0-35.0); MEAN CORPUSCULAR HGB CONC 31.9 g/dl (31.0-37.0); MEAN PLATELET VOLUME 10.5 fl (7.0-11.0); MONO # 0.5 (0.1-0.6); MONO % 14.4 % (1.0-6.0); RBC 3.25 10^6/uL (3.5-6.1); RED CELL DISTRIBUTION WIDTH 15.1 % (11.5-14.5); WHITE BLOOD COUNT 3.2 10^3/ul (4.5-11.0)
[2017-05-07 08:23] LABS: ALB/GLOB RATIO 0.8 (1.1-1.8); ALBUMIN 2.7 g/dL (3.0-4.8); ALT/SGPT 55 U/L (7-56); AST/SGOT 71 U/L (17-59); BLOOD UREA NITROGEN 7 mg/dL (7-21); CALCIUM 9.1 mg/dL (8.4-10.5); GFR AFRICAN-AMERICAN > 60; GFR NON-AFRICAN AMERICAN > 60; MAGNESIUM 1.8 mg/dL (1.7-2.2)
[2017-05-07 08:30] LABS: INR 1.27 (0.93-1.08); PARTIAL THROMBOPLASTIN TIME 31.7 Seconds (25.1-36.5); PROTHROMBIN TIME 14.7 SECONDS (9.4-12.5)
[2017-05-07] MEDS: Potassium Chloride 10 mEq ER Tab PO SCH ×2 (08:33→17:16)
[2017-05-07] MEDS: Multivitamin With Minerals Tab PO SCH (08:33)
[2017-05-07] MEDS: Magnesium Oxide 400 mg Tab UD PO SCH ×2 (09:12→17:16)
--- NOTE | 2017-05-07 09:22 | CP.PCM.PN ---
<Darnell Mooney - Last Filed: 05/07/17 13:24> Subjective - Date & Time of Evaluation Date of Evaluation: 05/07/17 Time of Evaluation: 09:16 - Subjective Subjective: Patient seen and examined at bedside in no acute distress with no complaints. Patient states around 5 a.m. he felt he might have gone into flutter. He states that aside from this he has no complaints. States his swelling has improved. Denies current shortness of breath, nausea, vomiting, abdominal pain, fevers, chills, headache, cough. Objective - Vital Signs/Intake and Output Vital Signs (last 24 hours): Temp Pulse Resp BP Pulse Ox 97.8 F 145 H 19 105/76 100 05/07/17 06:00 05/07/17 09:12 05/07/17 06:00 05/07/17 09:12 05/07/17 06:00 Intake and Output: 05/07/17 05/07/17 06:59 18:59 Intake Total 840 Output Total 1200 Balance -360 - Medications Medications: Current Medications Atenolol (Tenormin) 25 mg PO DAILY [facility] Last Admin: 05/07/17 09:12 Dose: 25 mg Digoxin (Digoxin) 0.125 mg PO 1400 [facility] Last Admin: 05/06/17 15:48 Dose: Not Given Diltiazem HCl (Cardizem) 5 mg IVP Q6H PRN PRN Reason: HR > 120 Folic Acid (Folic Acid) 1 mg PO DAILY [facility] Last Admin: 05/07/17 09:12 Dose: 1 mg Furosemide (Lasix) 40 mg IVP 0600,1800 [facility] Last Admin: 05/07/17 05:02 Dose: 40 mg Levothyroxine Sodium (Synthroid) 50 mcg PO 0600 [facility] Last Admin: 05/07/17 05:01 Dose: 50 mcg Magnesium Oxide (Mag-Ox) 400 mg PO BID [facility] Last Admin: 05/07/17 09:12 Dose: 400 mg Midodrine (Proamatine) 10 mg PO TID [facility] Last Admin: 05/07/17 09:12 Dose: 10 mg Multivitamins/Minerals (Therapeutic-M Tab) 1 tab PO 0800 [facility] Last Admin: 05/07/17 08:33 Dose: 1 tab Oxycodone HCl (Oxycodone Immediate Release Tab) 5 mg PO Q8H PRN PRN Reason: Pain, moderate (4-7) Last Admin: 05/07/17 05:01 Dose: 5 mg Pantoprazole Sodium (Protonix Ec Tab) 40 mg PO 0600,1600 [facility] Last Admin: 05/07/17 05:01 Dose: 40 mg Potassium Chloride (Klor-Con 10) 20 meq PO BRKDIN [facility] Last Admin: 05/07/17 08:33 Dose: 20 meq Sucralfate (Carafate Tab) 1 gm PO ACHS [facility] Last Admin: 05/07/17 08:33 Dose: 1 gm Thiamine HCl (Vitamin B1 Tab) 100 mg PO DAILY [facility] Last Admin: 05/07/17 09:12 Dose: 100 mg Verapamil HCl (Calan Tab) 80 mg PO TID [facility] Last Admin: 05/07/17 09:11 Dose: 80 mg - Labs Labs: 05/07/17 07:00 05/07/17 07:00 PT 14.7 SECONDS (9.4-12.5) H 05/07/17 07:00 INR 1.27 (0.93-1.08) H 05/07/17 07:00 APTT 31.7 Seconds (25.1-36.5) 05/07/17 07:00 - Constitutional Appears: Non-toxic, No Acute Distress - Head Exam Head Exam: ATRAUMATIC, NORMAL INSPECTION, NORMOCEPHALIC - Eye Exam Eye Exam: EOMI, Normal appearance - ENT Exam ENT Exam: Mucous Membranes Moist - Neck Exam Neck Exam: Normal Inspection - Respiratory Exam Respiratory Exam: Clear to Ausculation Bilateral, NORMAL BREATHING PATTERN. absent: Wheezes, Respiratory Distress - Cardiovascular Exam Cardiovascular Exam: Tachycardia, Irregular Rhythm. absent: Bradycardia, Clicks , JVD - GI/Abdominal Exam GI & Abdominal Exam: Soft, Normal Bowel Sounds - Extremities Exam Extremities Exam: Calf Tenderness (bilaterally), Full ROM, Pedal Edema ( bilaterally) Additional comments: right forearm in splint - Back Exam Back Exam: NORMAL INSPECTION - Neurological Exam Neurological Exam: Alert, Awake, Oriented x3 - Psychiatric Exam Psychiatric exam: Normal Affect, Normal Mood - Skin Skin Exam: Intact, Normal Color, Warm Assessment and Plan - Assessment and Plan (Free Text) Assessment: This is a 51 M with a PMH of dilated cardiomyopathy s/p single chamber ventricular pacemaker placement, chronic atrial fibrillation, alcohol abuse, thrombocytopenia, peptic ulcer disease, and depression who presents to [facility] with complaints of acute episode of palpitations present on awakening today and worsening shortness of breath and bilateral LE edema. He is being admitted for LE edema and shortness of breath concerning for heart failure, and palpitations concerning for afib. Plan: Shortness of breath with bilateral LE edema -CHF vs fluid overload due to excessive PO intake vs diuresis failure -changing from PO lasix 40 BID to IV BID -Continue to monitor I's and O's, daily weights -BNP 3470 -Trop x2 negative -Cardio (Dr. Collins) consulted -continue home tenormin, digoxin, verapamil -PRN Diltiazem IV 5mg q6h for HR > 120 Right wrist pain -X-ray reveals acute transverse nondisplaced impacted fracture in the distal radius without significant angulation. Bone alignment and mineralization are normal. -Patient states since splint placed in ED he has has no pain. Hx of Alcohol hepatitis -Patient has a history of transaminitis; liver enzymes currently only mildly elevated -No steroids being used 2/2 risk of bleeding in the patient -Was told he may need liver transplant 2 admissions ago, knows has to be sober 6 months for transplant eligibility -Alcohol level < 10 on admission, no signs of tremors or DTs Atrial fibrillation with RVR -Patient experienced episodes while eating breakfast and ambulating to the restroom; observed 20 minutes after and patient's HR decreased to 64. Alcoholic Bone Marrow Suppression -currently leukopenic at 2.8, platelets at 123 -Cont to monitor Dilated Cardiomyopathy - Cardiology consulted - Continue with cardiac medication regimen as listed above Hypertension - BP well controlled, continue to monitor Hyperbilirubinemia - Considerably improved over prior elevations, 3.4 - Cont to monitor Depression - continue home meds, if becomes overly depressed will consult Psych Peptic ulcer disease - Pepcid 20 mg PO daily Hypothyroidism - Cont Synthroid GI Ppx: Protonix DVT ppx: SCDs, avoid AC in setting of poor liver function Patient seen, reviewed, and discussed with attending, Dr. Pacheco dispo: will continue with lasix and check for improvement. Lasix increased and patient should be cleared for dc tomorrow morning. <Sincere Pacheco - Last Filed: 05/07/17 15:44> Objective - Vital Signs/Intake and Output Vital Signs (last 24 hours): Temp Pulse Resp BP Pulse Ox 97.1 F L 60 18 90/56 L 100 05/07/17 12:00 05/07/17 14:50 05/07/17 12:00 05/07/17 14:50 05/07/17 06:00 Intake and Output: 05/07/17 05/07/17 06:59 18:59 Intake Total 1080 Output Total 1400 Balance -320 - Medications Medications: Current Medications Al Hydrox/Mg Hydrox/Simethicone (Maalox Plus 30 Ml) 30 ml PO DAILY PRN PRN Reason: Indigestion / Heartburn Last Admin: 05/07/17 14:15 Dose: 30 ml Atenolol (Tenormin) 25 mg PO DAILY [facility] Last Admin: 05/07/17 09:12 Dose: 25 mg Digoxin (Digoxin) 0.125 mg PO 1400 [facility] Last Admin: 05/07/17 14:15 Dose: 0.125 mg Diltiazem HCl (Cardizem) 5 mg IVP Q6H PRN PRN Reason: HR > 120 Folic Acid (Folic Acid) 1 mg PO DAILY [facility] Last Admin: 05/07/17 09:12 Dose: 1 mg Furosemide (Lasix) 40 mg IVP 0600,1800 [facility] Last Admin: 05/07/17 05:02 Dose: 40 mg Levothyroxine Sodium (Synthroid) 50 mcg PO 0600 [facility] Last Admin: 05/07/17 05:01 Dose: 50 mcg Magnesium Oxide (Mag-Ox) 400 mg PO BID [facility] Last Admin: 05/07/17 09:12 Dose: 400 mg Midodrine (Proamatine) 10 mg PO TID [facility] Last Admin: 05/07/17 14:15 Dose: 10 mg Multivitamins/Minerals (Therapeutic-M Tab) 1 tab PO 0800 [facility] Last Admin: 05/07/17 08:33 Dose: 1 tab Oxycodone HCl (Oxycodone Immediate Release Tab) 5 mg PO Q8H PRN PRN Reason: Pain, moderate (4-7) Last Admin: 05/07/17 05:01 Dose: 5 mg Pantoprazole Sodium (Protonix Ec Tab) 40 mg PO 0600,1600 [facility] Last Admin: 05/07/17 05:01 Dose: 40 mg Potassium Chloride (Klor-Con 10) 20 meq PO BRKDIN [facility] Last Admin: 05/07/17 08:33 Dose: 20 meq Sucralfate (Carafate Tab) 1 gm PO ACHS [facility] Last Admin: 05/07/17 11:32 Dose: 1 gm Thiamine HCl (Vitamin B1 Tab) 100 mg PO DAILY [facility] Last Admin: 05/07/17 09:12 Dose: 100 mg Verapamil HCl (Calan Tab) 80 mg PO TID [facility] Last Admin: 05/07/17 14:50 Dose: Not Given - Labs Labs: 05/07/17 07:00 05/07/17 07:00 PT 14.7 SECONDS (9.4-12.5) H 05/07/17 07:00 INR 1.27 (0.93-1.08) H 05/07/17 07:00 APTT 31.7 Seconds (25.1-36.5) 05/07/17 07:00 Attending/Attestation - Attestation I have personally seen and examined this patient.: Yes I have fully participated in the care of the patient.: Yes I have reviewed all pertinent clinical information, including history, physical exam and plan: Yes Notes (Text): I have seen and examined patient at bedside. Agree with the above note with the following additions/ exceptions: Briefly this is 51 year old male with history of alcohol abuse, alcoholic hepatitis, dilated cardiomyopathy, EF30-35% s/p single chamber ventricular pacemaker placement, chronic atrial fibrillation, thrombocytopenia, peptic ulcer disease and depression who was admitted for palpitations, dyspnea and bilateral lower extremity edema secondary to CHF exacerbation. Patient has been drinking excessive amount of water. As per patient, he didn't drink alcohol since Mar 20 2017. He was advised regarding fluid restriction and was started on lasix. Dose was increased today. HR is stable most of the time however when he eats or walks to the bathroom, his HR goes up to 150's. Denies chest pain, nausea or vomiting. He feels slightly better than yesterday. Continue splinting for right wrist fracture. Currently on prn oxycodone. Advised to avoid Tylenol and Motrin/NSAIDs. Prognosis is poor secondary to noncompliance with follow-up and long history of alcohol abuse. Possible dc in am. Upon discharge the patient will follow up with PMD Dr.Nina Dean. Dr Sincere Pacheco
[2017-05-07] MEDS: Alum-Mag Hydrox-Simethicone Susp (30 mL) PO PRN ×2 (14:15→17:15)
[2017-05-07] MEDS: Digoxin 125 mcg (0.125 mg) Tab PO SCH (14:15)
--- NOTE | 2017-05-07 16:21 | PN ---
DATE: 05/07/2017 LOCATION: The patient in room 373, bed 1. REASON FOR CONSULTATION: Atrial fibrillation, palpitations, status post pacemaker insertion. SUBJECTIVE: The patient is lying flat in bed without chest pain, shortness of breath or palpitation. No dizziness. PHYSICAL EXAMINATION: VITAL SIGNS: Blood pressure 94/57, respirations 18, pulse 62, temperature 97.1. HEENT: Head is normocephalic. Eyes: Pupils normal. Conjunctivae slightly pale. NECK: JVP low. Carotids equal. THORAX: AP diameter normal. LUNGS: Clear. CARDIOVASCULAR: S1 and S2. ABDOMEN: Soft. No tenderness. No organomegaly. Bowel sound normal. EXTREMITIES: No clubbing. No cyanosis. LABORATORY DATA: WBC 3.2, hemoglobin 10.2, hematocrit 32.0, platelets 145. Sodium 136, potassium 3.6, BUN 7, creatinine 0.5, total bilirubin 3.4, AST 71, alkaline phosphatase 144, total protein 6.2, albumin 2.7. Prothrombin time 14.7, INR 1.27. DIAGNOSES: Palpitation; atrial fibrillation; leukopenia; prior history of thrombocytopenia; history of alcohol abuse, the patient states that he stopped recently; history of multiple falls. Last echo showed left ventricular ejection fraction 35%, dilated cardiomyopathy, history of permanent pacemaker insertion, mitral regurgitation, tricuspid regurgitation. Echocardiogram was done on 02/07/2017. PLAN: The patient now clinically is stable. The patient will continue verapamil 80 mg t.i.d., digoxin 0.125 daily, folic acid 1 daily, potassium 20 mEq b.i.d. The patient on Lasix 40 IV b.i.d. at present, midodrine 10 mg t.i.d., mag oxide 400 b.i.d., Protonix 40 b.i.d., Synthroid 50 mcg p.o. daily, atenolol 25 daily, thiamine 100 daily. We will follow. Tere Collins MD
[2017-05-07] MEDS ORDERED: Morphine 2 mg/ml ISec IVP ONE (21:50)
[2017-05-08] MEDS ORDERED: DiphenhydrAMINE 50 mg/ml Inj IVP STA (01:34)
[2017-05-08] MEDS: oxyCODONE 5 mg Immediate Release Tab PO PRN ×2 (02:02→12:55)
[2017-05-08] MEDS: Levothyroxine 50 MCG TAB PO SCH (06:37)
[2017-05-08] MEDS: Pantoprazole 40 mg EC Tab PO SCH ×2 (06:37→16:03)
[2017-05-08] MEDS: Potassium Chloride 10 mEq ER Tab PO SCH (06:37)
[2017-05-08 07:07] LABS: BASO # 0.01 K/mm3 (0.0-2.0); BASO % 0.3 % (0.0-3.0); EOS # 0.1 (0.0-0.7); EOS % 1.3 % (1.5-5.0); GRAN # 2.25 (1.4-6.5); GRAN % 56.3 % (50.0-68.0); HEMOGLOBIN 9.5 g/dL (14.0-18.0); LYMPH # 1.2 (1.2-3.4); LYMPH % 30.3 % (22.0-35.0); MEAN CELL VOLUME 98.7 fl (80.0-105.0); MEAN CORPUSCULAR HEMOGLOBIN 30.9 pg (25.0-35.0); MEAN CORPUSCULAR HGB CONC 31.4 g/dl (31.0-37.0); MEAN PLATELET VOLUME 10.4 fl (7.0-11.0); MONO # 0.5 (0.1-0.6); MONO % 11.8 % (1.0-6.0); RBC 3.07 10^6/uL (3.5-6.1); RED CELL DISTRIBUTION WIDTH 15.1 % (11.5-14.5)
[2017-05-08 07:22] VITALS: O2SAT 98
[2017-05-08 07:26] LABS: INR 1.21 (0.93-1.08); PARTIAL THROMBOPLASTIN TIME 31.6 Seconds (25.1-36.5)
[2017-05-08 07:33] LABS: ALB/GLOB RATIO 0.8 (1.1-1.8); ALBUMIN 2.8 g/dL (3.0-4.8); ALT/SGPT 43 U/L (7-56); AST/SGOT 60 U/L (17-59); BLOOD UREA NITROGEN 11 mg/dL (7-21); CALCIUM 8.7 mg/dL (8.4-10.5); GFR AFRICAN-AMERICAN > 60; GFR NON-AFRICAN AMERICAN > 60; MAGNESIUM 1.9 mg/dL (1.7-2.2)
[2017-05-08] MEDS: Multivitamin With Minerals Tab PO SCH (08:06)
[2017-05-08] MEDS: Magnesium Oxide 400 mg Tab UD PO SCH (09:26)
[2017-05-08 12:43] VITALS: RESP 18; TEMP 98.5
[2017-05-08] MEDS: Digoxin 125 mcg (0.125 mg) Tab PO SCH (16:03)
[2017-05-08 16:09] VITALS: BP 102/68; PULSE 65
--- NOTE | 2017-05-08 16:13 | PN ---
DATE: 05/08/2017 LOCATION: Room 373, bed 1. REASON FOR CONSULTATION AND FOLLOWUP: Atrial fibrillation, palpitation, status post pacemaker insertion. SUBJECTIVE: The patient is sitting on bedside without chest pain, shortness of breath, or palpitation. He says on exertion, his heart rate still goes . Denies any dizziness or syncope. PHYSICAL EXAMINATION: VITAL SIGNS: Blood pressure 89/59, respirations 18, pulse 62, temperature 98.5. HEENT: Head is normocephalic. Eyes: Pupils normal. Conjunctivae slightly pale. NECK: JVP low. Carotids equal. THORAX: AP diameter normal. LUNGS: Clear. CARDIOVASCULAR: S1 and S2. ABDOMEN: Soft. No tenderness. No organomegaly. EXTREMITIES: No clubbing. No cyanosis. LABORATORY DATA: WBC 4.0, hemoglobin 9.5, hematocrit 30.3, platelets 158. Sodium 137, potassium 3.7, BUN 11, creatinine 0.6. Calcium, phosphorus, and magnesium normal. AST 60, ALT is 43, total protein 6.2, albumin 2.8. Prothrombin time 14.0, INR 1.21. DIAGNOSES: Palpitation; atrial fibrillation; leukopenia; history of thrombocytopenia in the past; history of alcohol abuse, the patient states that he recently stopped drinking alcohol; history of multiple falls. Last echocardiogram showed left ventricular ejection fraction 35%, dilated cardiomyopathy, history of permanent pacemaker insertion, mitral regurgitation, tricuspid regurgitation. Echocardiogram was done on 01/19/2017. PLAN: The patient on verapamil 80 t.i.d., digoxin 0.125 daily. Lasix IV b.i.d., we will change it to p.o. potassium. Levothyroxine 50 mcg p.o. daily, atenolol 25 mg daily, and thiamine 100 daily. We will follow. Tere Collins MD
--- NOTE | 2017-05-09 02:19 | CP.PCM.DIS ---
<Darnell Mooney - Last Filed: 05/09/17 02:06> Provider - Provider Date of Admission: 05/05/17 20:01 Attending physician: Elsie Garcia MD Primary care physician: Dr. Delaney Pete Consults: Cardiology: Dr. Collins Time Spent in preparation of Discharge (in minutes): 45 Diagnosis - Discharge Diagnosis (1) Paroxysmal atrial fibrillation Status: Chronic Priority: High (2) Sick sinus syndrome Status: Chronic Priority: High (3) Alcoholic cardiomyopathy Status: Acute (4) Hypothyroid Status: Chronic Priority: High (5) Right wrist fracture Status: Acute (6) Paroxysmal a-fib Status: Acute Priority: High Hospital Course - Lab Results Lab Results: Most Recent Lab Values WBC 4.0 10^3/ul (4.5-11.0) L D 05/08/17 07:00 RBC 3.07 10^6/uL (3.5-6.1) L 05/08/17 07:00 Hgb 9.5 g/dL (14.0-18.0) L 05/08/17 07:00 Hct 30.3 % (42.0-52.0) L 05/08/17 07:00 MCV 98.7 fl (80.0-105.0) 05/08/17 07:00 MCH 30.9 pg (25.0-35.0) 05/08/17 07:00 MCHC 31.4 g/dl (31.0-37.0) 05/08/17 07:00 RDW 15.1 % (11.5-14.5) H 05/08/17 07:00 Plt Count 158 10^3/uL (120.0-450.0) 05/08/17 07:00 MPV 10.4 fl (7.0-11.0) 05/08/17 07:00 Gran % 56.3 % (50.0-68.0) 05/08/17 07:00 Lymph % (Auto) 30.3 % (22.0-35.0) 05/08/17 07:00 [place] % (Auto) 11.8 % (1.0-6.0) H 05/08/17 07:00 Eos % (Auto) 1.3 % (1.5-5.0) L 05/08/17 07:00 Baso % (Auto) 0.3 % (0.0-3.0) 05/08/17 07:00 Gran # 2.25 (1.4-6.5) 05/08/17 07:00 Lymph # (Auto) 1.2 (1.2-3.4) 05/08/17 07:00 [place] # (Auto) 0.5 (0.1-0.6) 05/08/17 07:00 Eos # (Auto) 0.1 (0.0-0.7) 05/08/17 07:00 Baso # (Auto) 0.01 K/mm3 (0.0-2.0) 05/08/17 07:00 PT 14.0 SECONDS (9.4-12.5) H 05/08/17 06:30 INR 1.21 (0.93-1.08) H 05/08/17 06:30 APTT 31.6 Seconds (25.1-36.5) 05/08/17 06:30 pO2 74 mm/Hg (30-55) H 05/05/17 18:10 VBG pH 7.43 (7.32-7.43) 05/05/17 18:10 VBG pCO2 40.0 (40-60) 05/05/17 18:10 VBG HCO3 26.5 mmol/l (21-28) 05/05/17 18:10 VBG Total CO2 27.7 mmol.L (22-28) 05/05/17 18:10 VBG O2 Sat (Calc) 96.8 % (40-65) H 05/05/17 18:10 VBG Base Excess 2.0 mmol/L (0.0-2.0) 05/05/17 18:10 VBG Potassium 3.4 mmol/L (3.6-5.2) L 05/05/17 18:10 Sodium 135.0 mmol/L (132-148) 05/05/17 18:10 Chloride 107.0 mmol/L (98-107) 05/05/17 18:10 Glucose 99 mg/dl (75-110) 05/05/17 18:10 Lactate 1.0 mmol/L (0.7-2.1) 05/05/17 18:10 FiO2 21.0 % 05/05/17 18:10 Sodium 137 mmol/L (132-148) 05/08/17 06:30 Potassium 3.7 mmol/L (3.6-5.0) 05/08/17 06:30 Chloride 100 mmol/L (98-107) 05/08/17 06:30 Carbon Dioxide 27 mmol/L (21-33) 05/08/17 06:30 Anion Gap 13 (10-20) 05/08/17 06:30 BUN 11 mg/dL (7-21) 05/08/17 06:30 Creatinine 0.6 mg/dl (0.8-1.5) L 05/08/17 06:30 Est GFR ( Amer) > 60 05/08/17 06:30 Est GFR (Non-Af Amer) > 60 05/08/17 06:30 Random Glucose 96 mg/dL (70-110) 05/08/17 06:30 Calcium 8.7 mg/dL (8.4-10.5) 05/08/17 06:30 Phosphorus 3.3 mg/dL (2.5-4.5) 05/08/17 06:30 Magnesium 1.9 mg/dL (1.7-2.2) 05/08/17 06:30 Total Bilirubin 3.2 mg/dL (0.2-1.3) H 05/08/17 06:30 AST 60 U/L (17-59) H 05/08/17 06:30 ALT 43 U/L (7-56) 05/08/17 06:30 Alkaline Phosphatase 129 U/L (38-126) H 05/08/17 06:30 Lactate Dehydrogenase 308 U/L (333-699) L 05/05/17 18:10 Total Creatine Kinase < 20 U/L (35-230) L 05/05/17 18:10 Troponin I < 0.01 ng/mL 05/06/17 08:00 NT-Pro-B Natriuret Pep 3470 pg/mL (0-450) H 05/05/17 18:10 Total Protein 6.2 g/dL (5.8-8.3) 05/08/17 06:30 Albumin 2.8 g/dL (3.0-4.8) L 05/08/17 06:30 Globulin 3.4 gm/dL 05/08/17 06:30 Albumin/Globulin Ratio 0.8 (1.1-1.8) L 05/08/17 06:30 TSH 3rd Generation 7.03 mIU/mL (0.46-4.68) H 05/06/17 08:00 Venous Blood Potassium 3.4 mmol/L (3.6-5.2) L 05/05/17 18:10 Urine Color Yellow (YELLOW) 05/05/17 16:48 Urine Appearance Clear (CLEAR) 05/05/17 16:48 Urine pH 6.0 (4.7-8.0) 05/05/17 16:48 Ur Specific [place] 1.010 (1.005-1.035) 05/05/17 16:48 Urine Protein Negative mg/dL (<30 mg/dL) 05/05/17 16:48 Urine Glucose (UA) Negative mg/dL (NEGATIVE) 05/05/17 16:48 Urine Ketones Negative mg/dL (NEGATIVE) 05/05/17 16:48 Urine Blood Negative (NEGATIVE) 05/05/17 16:48 Urine Nitrate Negative (NEGATIVE) 05/05/17 16:48 Urine Bilirubin Negative (NEGATIVE) 05/05/17 16:48 Urine Urobilinogen 0.2 E.U./dL (<1 E.U./dL) 05/05/17 16:48 Ur Leukocyte Esterase Negative Abdi/uL (NEGATIVE) 05/05/17 16:48 Digoxin 1.3 ng/mL (0.8-2.0) 05/06/17 08:00 Alcohol, Quantitative < 10 mg/dL (0-10) 05/05/17 18:10 - Hospital Course Hospital Course: Patient is 51 year old male with a past medical history of paroxysmal atrial fibrillation, sick sinus syndrome status post permanent pacemaker insertion, 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 Imaging revealed acute transverse non displaced impacted fracture in the distal radius without significant angulation in the right wrist as previous wrist x-ray had shown. While in the emergency deparmtent patient was noted to have severe lower extremity swelling with an elevated BNP. Patient revealed that he had been successfully abstaining from alcohol consumption but instead was drinking copious amounts of water. Patient was admitted and treated with IV lasix. Cardiology evaluated patient and patient was found to be non compliant with his medications despite being instructed on several occasions the importance of medication compliance considering his medical conditions. Patient was discharged with his regular prescriptions; meds to bed and instructed to follow up with his primary care physician who would be able to refer him to an orthopedic surgeon regarding his injury. Patient also stated he has an orthopedic surgeon his family uses who his PMD can refer him too. Patient's synthroid dosage was also adjusted while in the hospital due to his thyroid studies. Patient was in agreement with plan and then discharged. Case reviewed and discussed with Dr. Radha Mooney PGY1 Discharge Exam - Head Exam Head Exam: ATRAUMATIC, NORMAL INSPECTION, NORMOCEPHALIC - Eye Exam Eye Exam: EOMI, Normal appearance - Respiratory Exam Respiratory Exam: Clear to PA & Lateral, NORMAL BREATHING PATTERN. absent: Rales, Rhonchi, Wheezes - Cardiovascular Exam Cardiovascular Exam: Irregular Rhythm (paced), +S1, +S2 - GI/Abdominal Exam GI & Abdominal Exam: Normal Bowel Sounds, Unremarkable - Extremities Exam Extremities exam: pedal edema (improved) - Back Exam Back exam: NORMAL INSPECTION - Neurological Exam Neurological exam: Alert, CN II-XII Intact, Oriented x3 - Psychiatric Exam Psychiatric exam: Normal Affect, Normal Mood - Skin Skin Exam: Normal Color, Warm Discharge Plan - Discharge Medications Prescriptions: Aluminum Hydroxide/Magnesium [Maalox Plus 30 ml] 30 ml PO DAILY PRN #1 bottle PRN Reason: Indigestion / Heartburn Atenolol [Tenormin] 25 mg PO DAILY #30 tab Digoxin 0.125 mg PO DAILY #30 tab Esomeprazole Magnesium [Nexium] 40 mg PO BID #60 capsule. Folic Acid 1 mg PO DAILY #30 tab Furosemide 40 mg PO BID 5 Days #10 tablet Furosemide [Lasix] 20 mg PO BID #60 tab Levothyroxine [Synthroid] 50 mcg PO 0600 14 Days #14 tab Magnesium Oxide [Mag-Ox] 400 mg PO BID #60 tab Midodrine [Proamatine] 10 mg PO TID #90 tab Multimineral/Multivitamin [Therapeutic-M Tab] 1 tab PO 0800 #30 tab Potassium Chloride [Klor-Con 10] 20 meq PO BRKDIN #30 ter Sucralfate [Carafate Tab] 1 gm PO QID #120 tab Thiamine [Vitamin B1 Tab] 100 mg PO DAILY #30 tab Verapamil [Calan Tab] 80 mg PO TID #90 tab - Follow Up Plan Condition: STABLE Disposition: HOME/ ROUTINE Instructions: Heart Failure (ED) Additional Instructions: 1. Please follow up with your primary care physician Dr. Pete within 3-5 days regarding admission. 2. Continue to elevate fractured wrist and not bare weight. 3. Please comply with your medications; this will help prevent further exacerbations 4. If symptoms return please do no hesitate to return to the ED 5. Please take 40 mg BID of furosemide twice a day for only 5 days for a total of 80 mg a day. Once five days is over you may return to your 20 mg twice a day furosemide for a total of 40 mg per day. <Elsie Garcia - Last Filed: 05/09/17 07:55> Provider - Provider Date of Admission: 05/05/17 20:01 Attending physician: Elsie Garcia MD Hospital Course - Lab Results Lab Results: Most Recent Lab Values WBC 4.0 10^3/ul (4.5-11.0) L D 05/08/17 07:00 RBC 3.07 10^6/uL (3.5-6.1) L 05/08/17 07:00 Hgb 9.5 g/dL (14.0-18.0) L 05/08/17 07:00 Hct 30.3 % (42.0-52.0) L 05/08/17 07:00 MCV 98.7 fl (80.0-105.0) 05/08/17 07:00 MCH 30.9 pg (25.0-35.0) 05/08/17 07:00 MCHC 31.4 g/dl (31.0-37.0) 05/08/17 07:00 RDW 15.1 % (11.5-14.5) H 05/08/17 07:00 Plt Count 158 10^3/uL (120.0-450.0) 05/08/17 07:00 MPV 10.4 fl (7.0-11.0) 05/08/17 07:00 Gran % 56.3 % (50.0-68.0) 05/08/17 07:00 Lymph % (Auto) 30.3 % (22.0-35.0) 05/08/17 07:00 [place] % (Auto) 11.8 % (1.0-6.0) H 05/08/17 07:00 Eos % (Auto) 1.3 % (1.5-5.0) L 05/08/17 07:00 Baso % (Auto) 0.3 % (0.0-3.0) 05/08/17 07:00 Gran # 2.25 (1.4-6.5) 05/08/17 07:00 Lymph # (Auto) 1.2 (1.2-3.4) 05/08/17 07:00 [place] # (Auto) 0.5 (0.1-0.6) 05/08/17 07:00 Eos # (Auto) 0.1 (0.0-0.7) 05/08/17 07:00 Baso # (Auto) 0.01 K/mm3 (0.0-2.0) 05/08/17 07:00 PT 14.0 SECONDS (9.4-12.5) H 05/08/17 06:30 INR 1.21 (0.93-1.08) H 05/08/17 06:30 APTT 31.6 Seconds (25.1-36.5) 05/08/17 06:30 pO2 74 mm/Hg (30-55) H 05/05/17 18:10 VBG pH 7.43 (7.32-7.43) 05/05/17 18:10 VBG pCO2 40.0 (40-60) 05/05/17 18:10 VBG HCO3 26.5 mmol/l (21-28) 05/05/17 18:10 VBG Total CO2 27.7 mmol.L (22-28) 05/05/17 18:10 VBG O2 Sat (Calc) 96.8 % (40-65) H 05/05/17 18:10 VBG Base Excess 2.0 mmol/L (0.0-2.0) 05/05/17 18:10 VBG Potassium 3.4 mmol/L (3.6-5.2) L 05/05/17 18:10 Sodium 135.0 mmol/L (132-148) 05/05/17 18:10 Chloride 107.0 mmol/L (98-107) 05/05/17 18:10 Glucose 99 mg/dl (75-110) 05/05/17 18:10 Lactate 1.0 mmol/L (0.7-2.1) 05/05/17 18:10 FiO2 21.0 % 05/05/17 18:10 Sodium 137 mmol/L (132-148) 05/08/17 06:30 Potassium 3.7 mmol/L (3.6-5.0) 05/08/17 06:30 Chloride 100 mmol/L (98-107) 05/08/17 06:30 Carbon Dioxide 27 mmol/L (21-33) 05/08/17 06:30 Anion Gap 13 (10-20) 05/08/17 06:30 BUN 11 mg/dL (7-21) 05/08/17 06:30 Creatinine 0.6 mg/dl (0.8-1.5) L 05/08/17 06:30 Est GFR ( Amer) > 60 05/08/17 06:30 Est GFR (Non-Af Amer) > 60 05/08/17 06:30 Random Glucose 96 mg/dL (70-110) 05/08/17 06:30 Calcium 8.7 mg/dL (8.4-10.5) 05/08/17 06:30 Phosphorus 3.3 mg/dL (2.5-4.5) 05/08/17 06:30 Magnesium 1.9 mg/dL (1.7-2.2) 05/08/17 06:30 Total Bilirubin 3.2 mg/dL (0.2-1.3) H 05/08/17 06:30 AST 60 U/L (17-59) H 05/08/17 06:30 ALT 43 U/L (7-56) 05/08/17 06:30 Alkaline Phosphatase 129 U/L (38-126) H 05/08/17 06:30 Lactate Dehydrogenase 308 U/L (333-699) L 05/05/17 18:10 Total Creatine Kinase < 20 U/L (35-230) L 05/05/17 18:10 Troponin I < 0.01 ng/mL 05/06/17 08:00 NT-Pro-B Natriuret Pep 3470 pg/mL (0-450) H 05/05/17 18:10 Total Protein 6.2 g/dL (5.8-8.3) 05/08/17 06:30 Albumin 2.8 g/dL (3.0-4.8) L 05/08/17 06:30 Globulin 3.4 gm/dL 05/08/17 06:30 Albumin/Globulin Ratio 0.8 (1.1-1.8) L 05/08/17 06:30 TSH 3rd Generation 7.03 mIU/mL (0.46-4.68) H 05/06/17 08:00 Venous Blood Potassium 3.4 mmol/L (3.6-5.2) L 05/05/17 18:10 Urine Color Yellow (YELLOW) 05/05/17 16:48 Urine Appearance Clear (CLEAR) 05/05/17 16:48 Urine pH 6.0 (4.7-8.0) 05/05/17 16:48 Ur Specific [place] 1.010 (1.005-1.035) 05/05/17 16:48 Urine Protein Negative mg/dL (<30 mg/dL) 05/05/17 16:48 Urine Glucose (UA) Negative mg/dL (NEGATIVE) 05/05/17 16:48 Urine Ketones Negative mg/dL (NEGATIVE) 05/05/17 16:48 Urine Blood Negative (NEGATIVE) 05/05/17 16:48 Urine Nitrate Negative (NEGATIVE) 05/05/17 16:48 Urine Bilirubin Negative (NEGATIVE) 05/05/17 16:48 Urine Urobilinogen 0.2 E.U./dL (<1 E.U./dL) 05/05/17 16:48 Ur Leukocyte Esterase Negative Abdi/uL (NEGATIVE) 05/05/17 16:48 Digoxin 1.3 ng/mL (0.8-2.0) 05/06/17 08:00 Alcohol, Quantitative < 10 mg/dL (0-10) 05/05/17 18:10 Attending/Attestation - Attestation I have personally seen and examined this patient.: Yes I have fully participated in the care of the patient.: Yes I have reviewed all pertinent clinical information, including history, physical exam and plan: Yes Notes (Text): 05/09/17 07:53 Attending note; Patient seen and examined with resident. Patient is a 51 year old male with history of alcohol abuse, alcoholic hepatitis , dilated cardiomyopathy, EF30-35% s/p single chamber ventricular pacemaker placement, chronic atrial fibrillation, thrombocytopenia, peptic ulcer disease and depression who was admitted for palpitations, dyspnea and bilateral lower extremity edema secondary to CHF exacerbation. Patient has been drinking excessive amount of water. He was advised regarding fluid restriction and was started on lasix. Swelling is improved. Patient is ambulating without any difficulty. PT evaluation appreciated. Heart rate is stable. Medication adjusted by cardiology. Patient is strongly advised to follow-up with PMD Dr.Nina Dean. Continue splinting for right wrist fracture. Currently on prn oxycodone. Advised to avoid Tylenol and Motrin/NSAIDs. Prognosis is poor secondary to noncompliance with follow-up and long history of alcohol abuse. Upon discharge the patient will follow up with PMD Dr.Nina Dean.
== END 2017-05-08 17:47 | disposition home or self-care (01) | DRG 138 ==
LOC: ED 14:22 → ERH 20:01 → 3RSO 23:06
PROVIDERS: ADMIT Hospitalist; ATTEND Internal Medicine
DX: I48.0 Paroxysmal atrial fibrillation (principal); I42.6 Alcoholic cardiomyopathy; I42.0 Dilated cardiomyopathy; D69.6 Thrombocytopenia, unspecified; I11.0 Hypertensive heart disease with heart failure; I50.9 Heart failure, unspecified; I08.1 Rheumatic disorders of both mitral and tricuspid valves; E03.9 Hypothyroidism, unspecified; I48.2 Chronic atrial fibrillation; F10.10 Alcohol abuse, uncomplicated; K27.9 Peptic ulcer, site unspecified, unspecified as acute or chronic, without hemorrhage or perforation; D64.9 Anemia, unspecified; F32.9 Major depressive disorder, single episode, unspecified; H91.90 Unspecified hearing loss, unspecified ear; Z91.81 History of falling; R29.6 Repeated falls; Z91.19 Patient's noncompliance with other medical treatment and regimen; S62.101D Fracture of unspecified carpal bone, right wrist, subsequent encounter for fracture with routine healing; Z91.14 Patient's other noncompliance with medication regimen; Z95.0 Presence of cardiac pacemaker; Z98.84 Bariatric surgery status

== ENCOUNTER 2017-05-17 06:20 | Emergency (ER) | payer MEDICAID ==
[2017-05-17 06:21] VITALS: PULSE 65; BMI 33.9
--- NOTE | 2017-05-17 06:39 | ED PDOC ---
Arrival/HPI - General Time Seen by Provider: 05/17/17 06:27 Historian: Patient - History of Present Illness Narrative History of Present Illness (Text): 05/17/17 06:35 Elvis Ybarra is a 51 year old male, whose past medical history includes tachy -viki syndrome s/p pacemaker placement, paroxysmal atrial fibrillation, cardiomyopathy, hypertension, PUD, alcohol abuse, perforated ulcer/GI bleed, and gastric bypass, who presents to the ED complaining of palpitations tonight. Patient reports associated mid-sternal chest discomfort and some shortness of breath. Patient reports symptoms feel similar to previous episodes of atrial fibrillation. Patient denies any fever, chills, nausea, vomiting, diarrhea, urinary symptoms, back pain, neck pain, headache, dizziness, or any other complaints. Time/Duration: Other (today) Symptom Course: Unchanged Activities at Onset: Light Context: Home Past Medical History - Provider Review Nursing Documentation Reviewed: Yes - Past History Past History: No Previous (hx of afib, svt) - Infectious Disease Hx of Infectious Diseases: None - Tetanus Immunization Tetanus Immunization: Unknown - Cardiac Hx Cardiac Disorders: Yes Hx Congestive Heart Failure: Yes Hx Hypertension: Yes - Pulmonary Hx Respiratory Disorders: Yes (shortness of breath,CIGARETTES AND CIGAR SMOKER.OCCASIONAL) - Neurological Hx Neurological Disorder: Yes Hx Dizziness: Yes Hx Migraine: Yes - HEENT Hx HEENT Disorder: Yes (eyeglasses) Other/Comment: 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 related noise exposure - Renal Hx Renal Disorder: No - Endocrine/Metabolic Hx Endocrine Disorders: No - Hematological/Oncological Hx Cancer: No - Integumentary Hx Dermatological Disorder: No Other/Comment: tatoo - Musculoskeletal/Rheumatological Hx Musculoskeletal Disorders: Yes (RIB FX) Hx Back Pain: Yes Hx Falls: Yes Hx Fractures: Yes (Rib) Other/Comment: edema to lower extremeties - Gastrointestinal Hx Gastrointestinal Disorders: Yes (ACUTE PANCREATITIS) Hx Diverticulitis: Yes Hx Gastroesophageal Reflux: Yes Hx Liver Failure: Yes (Abnormal Liver function test) Hx Pancreatitis: Yes - Genitourinary/Gynecological Hx Genitourinary Disorders: No - Psychiatric Hx Psychophysiologic Disorder: Yes Hx Anxiety: Yes Hx Depression: Yes Hx Substance Use: No Other/Comment: alcohol abuse and withdrawal/ delirium.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 [employer] LIGHT - Surgical History Hx Gastric Bypass Surgery: Yes Hx Mastectomy: No Hx Open Heart Surgery: Yes - Anesthesia Hx Anesthesia: Yes Hx Anesthesia Reactions: No Hx Malignant Hyperthermia: No - Suicidal Assessment Feels Threatened In Home Enviroment: No Family/Social History - Physician Review Nursing Documentation Reviewed: Yes Family/Social History: Unknown Family HX Smoking Status: Smoker Currrent Status Unknown Hx Alcohol Use: Yes (last drink was 03/20/2017) Amount per day: 6 Hx Substance Use: No Hx Substance Use Treatment: No Allergies/Home Meds Allergies/Adverse Reactions: Allergies No Known Allergies Allergy (Verified 05/17/17 06:32) Home Medications: Home Meds Medication Instructions Recorded Confirmed Famotidine [Pepcid] 20 mg PO DAILY 05/17/17 05/17/17 Sucralfate [Carafate] 1 gm PO DAILY 05/17/17 05/17/17 traZODone [Desyrel] 100 mg PO DAILY 05/17/17 05/17/17 Review of Systems - Physician Review All systems were reviewed & negative as marked: Yes - Review of Systems Constitutional: Normal. absent: Fevers Eyes: Normal ENT: Normal Respiratory: SOB Cardiovascular: Chest Pain, Palpitations Gastrointestinal: Normal. absent: Abdominal Pain, Diarrhea, Nausea, Vomiting Genitourinary Male: Normal. absent: Dysuria, Frequency, Hematuria, Urinary Output Changes Musculoskeletal: Normal. absent: Back Pain, Neck Pain Skin: Normal. absent: Rash Neurological: Normal. absent: Headache, Dizziness Endocrine: Normal Hemo/Lymphatic: Normal Psychiatric: Normal Physical Exam Vital Signs Reviewed: Yes Vital Signs Temp Pulse Resp BP Pulse Ox 05/17/17 06:37 97.9 F 96 H 20 104/60 98 05/17/17 06:32 97.9 F Temperature: Afebrile Blood Pressure: Normal Pulse: Regular Respiratory Rate: Normal Appearance: Positive for: Well-Appearing, Non-Toxic, Comfortable Pain Distress: None Mental Status: Positive for: Alert and Oriented X 3 - Systems Exam Head: Present: Atraumatic, Normocephalic Pupils: Present: PERRL Extroacular Muscles: Present: EOMI Conjunctiva: Present: Normal Mouth: Present: Moist Mucous Membranes Neck: Present: Normal Range of Motion Respiratory/Chest: Present: Clear to Auscultation, Good Air Exchange. No: Respiratory Distress, Accessory Muscle Use Cardiovascular: Present: Normal S1, S2, Irregular Rhythm (Irregular, regular). No: Murmurs Abdomen: Present: Normal Bowel Sounds. No: Tenderness, Distention, Peritoneal Signs Back: Present: Normal Inspection Upper Extremity: Present: Normal Inspection. No: Cyanosis, Edema Lower Extremity: Present: Edema (Bilateral lower leg edema), NORMAL PULSES, Normal ROM, Neurovascularly Intact, Capillary Refill < 2 s. No: Tenderness, Erythema, Deformity, Temperature Abnormalties Neurological: Present: GCS=15, CN II-XII Intact, Speech Normal Skin: Present: Warm, Dry, Normal Color. No: Rashes Psychiatric: Present: Alert, Oriented x 3, Normal Insight, Normal Concentration Medical Decision Making ED Course and Treatment: 05/17/17 06:35 Impression: 51 year old male complaining of palpitations, chest discomfort, and some shortness of breath. Plan: -- EKG -- Chest X-ray -- Labs, cardiac enzymes, BNP -- Reassess and disposition Prior Visits: Notes and results from previous visits were reviewed. Progress Notes: Reviewed EKG, a fib at [address]/T wave changes anterolaterally and inferiorly. Unchanged from 05/05/2017. 05/17/17 07:00 Case endorsed to /pending labs/reassess/final disposition - RAD Interpretation Radiology Orders: 05/17/17 06:44 CHEST PORTABLE [RAD] Stat - EKG Interpretation Interpreted by ED Physician: Yes Type: 12 lead EKG - Scribe Statement The provider has reviewed the documentation as recorded by the Scribe Ary Jensen All medical record entries made by the Scribe were at my direction and personally dictated by me. I have reviewed the chart and agree that the record accurately reflects my personal performance of the history, physical exam, medical decision making, and the department course for this patient. I have also personally directed, reviewed, and agree with the discharge instructions and disposition. Disposition/Present on Arrival - Present on Arrival Any Indicators Present on Arrival: No History of DVT/PE: No History of Uncontrolled Diabetes: No Urinary Catheter: No History Surgical Site Infection Following: CABG - Mediastinitis, Bariatric Surgery, Abdominal Surgery, Orthopedic Procedures, None - Disposition Have Diagnosis and Disposition been Completed?: No Diagnosis: Atrial fibrillation, Chest pain Disposition Time: 07:00 Condition: STABLE Discharge Instructions (ExitCare): Chest Pain (ED)
[2017-05-17 07:26] LABS: HEMOGLOBIN 9.7 g/dL (14.0-18.0); MEAN CELL VOLUME 92.5 fl (80.0-105.0); MEAN CORPUSCULAR HEMOGLOBIN 30.3 pg (25.0-35.0); MEAN CORPUSCULAR HGB CONC 32.8 g/dl (31.0-37.0); MEAN PLATELET VOLUME 9.4 fl (7.0-11.0); RBC 3.2 10^6/uL (3.5-6.1); RED CELL DISTRIBUTION WIDTH 14.3 % (11.5-14.5); WHITE BLOOD COUNT 4.1 10^3/ul (4.5-11.0)
--- NOTE | 2017-05-17 07:33 | ED PDOC ---
Physical Exam Vital Signs Temp Pulse Resp BP Pulse Ox 05/17/17 07:55 76 16 115/71 99 05/17/17 06:37 97.9 F 96 H 20 104/60 98 05/17/17 06:32 97.9 F Medical Decision Making ED Course and Treatment: 05/17/17 07:16 Patient endorsed to me by Dr. Prince, as patient is currently awaiting lab results. Chest X-ray shows no acute distress, pacemaker noted. 05/17/17 08:07 Digoxin elevated. Troponin negative. Case discussed with Dr. Garcia who will evaluate patient for telemetry observation. 05/17/17 08:07 Currently patient is chest pain free. No palpitations. He said he tripped and fell the other day. He injured his right wrist. No other injuries. Right wrist has FROM, mild swelling. +2 radial pulses b/l. Sensation intact b/l. Xray pending and ordered. 05/17/17 08:29 Xray was reviewed with Dr. Wilson and shows no acute fx. The findings are consistent with an old fracture that is healing. Patient is not exhibiting any signs of alcohol withdrawal. No tremors or tongue facisculations. Case was discussed initially with Dr Garcia for admission but then patient decided that he did not want to stay in the hospital. Patient was informed to stop taking his digoxin for 2 days and then to repeat the level in the ED or with his doctor. Leaving Against Medical Advice (AMA): The patient is choosing to leave against medical advice. I have personally explained to the patient that choosing to do so may result in permanent bodily harm or . I have discussed at great length that without further evaluation and monitoring there may be unforeseen circumstances and/or deterioration causing permanent bodily harm or as a result of their choice. The patient is alert, oriented, and shows the mental capacity to make clear decisions regarding the patients health care at this time. The patient continues to wish to leave against medical advice. In light of the patients decision to leave against medical advice, follow-up has been arranged and the patient is aware of the importance to following up as instructed. The patient has been advised that they should return to the emergency room immediately if they change their mind at any time, or if their condition begins to change or worsen in any way. - Lab Interpretations Lab Results: 05/17/17 07:10 05/17/17 07:10 Lab Results 05/17/17 07:10: Alcohol, Quantitative 83 H 05/17/17 07:10: Digoxin 3.4 H* 05/17/17 07:10: WBC 4.1 L, RBC 3.20 L, Hgb 9.7 L, Hct 29.6 L, MCV 92.5 D, MCH 30.3, MCHC 32.8, RDW 14.3, Plt Count 158, MPV 9.4 05/17/17 07:10: PT 13.4 H, INR 1.16 H, APTT 32.8 05/17/17 07:10: Sodium 135, Potassium 4.6, Chloride 103, Carbon Dioxide 22, Anion Gap 15, BUN 5 L, Creatinine 0.6 L, Est GFR ( Amer) > 60, Est GFR ( Non-Af Amer) > 60, Random Glucose 95, Calcium 8.6, Total Bilirubin 1.9 H, AST 52 , ALT 35, Alkaline Phosphatase 167 H D, Lactate Dehydrogenase 341, Total Creatine Kinase < 20 L, Troponin I < 0.01, Total Protein 6.0, Albumin 2.7 L, Globulin 3.3, Albumin/Globulin Ratio 0.8 L - RAD Interpretation Radiology Orders: 05/17/17 06:44 CHEST PORTABLE [RAD] Stat 05/17/17 08:12 WRIST, RIGHT 3 VIEWS [RAD] Stat - Scribe Statement The provider has reviewed the documentation as recorded by the Umer Fierro Provider Scribe Attestation: All medical record entries made by the Scribafia were at my direction and personally dictated by me. I have reviewed the chart and agree that the record accurately reflects my personal performance of the history, physical exam, medical decision making, and the department course for this patient. I have also personally directed, reviewed, and agree with the discharge instructions and disposition. Disposition/Present on Arrival - Present on Arrival Any Indicators Present on Arrival: No History of DVT/PE: No History of Uncontrolled Diabetes: No Urinary Catheter: No History of Decub. Ulcer: No History Surgical Site Infection Following: CABG - Mediastinitis, Bariatric Surgery, Abdominal Surgery, Orthopedic Procedures, None - Disposition Have Diagnosis and Disposition been Completed?: Yes Diagnosis: Atrial fibrillation, Chest pain, Wrist sprain, Digoxin toxicity Disposition: AGAINST MEDICAL ADVICE Disposition Time: 09:01 Condition: IMPROVED
[2017-05-17 07:44] LABS: ALB/GLOB RATIO 0.8 (1.1-1.8); ALBUMIN 2.7 g/dL (3.0-4.8); ALT/SGPT 35 U/L (7-56); AST/SGOT 52 U/L (17-59); BLOOD UREA NITROGEN 5 mg/dL (7-21); CALCIUM 8.6 mg/dL (8.4-10.5); GFR AFRICAN-AMERICAN > 60; GFR NON-AFRICAN AMERICAN > 60
[2017-05-17 07:45] LABS: INR 1.16 (0.93-1.08); PARTIAL THROMBOPLASTIN TIME 32.8 Seconds (25.1-36.5); PROTHROMBIN TIME 13.4 SECONDS (9.4-12.5)
[2017-05-17 07:48] LABS: TROPONIN I < 0.01 ng/mL
[2017-05-17 07:55] VITALS: RESP 16
--- NOTE | 2017-05-17 08:52 | RAD ---
PROCEDURE: Right Wrist Radiographs. HISTORY: wrist pain s/p fall r/o fx COMPARISON: 05/05/2017 FINDINGS: BONES: There is no change in the appearance of the impacted transverse distal radial fracture. There is a moderate amount of callus formation around the fracture site JOINTS: Normal. No dislocation. SOFT TISSUES: Normal. OTHER FINDINGS: None. IMPRESSION: No change in appearance of distal radial fracture
[2017-05-17 08:58] VITALS: BP 116/68; PULSE 79; TEMP 98; O2SAT 100
--- NOTE | 2017-05-17 09:09 | CARD ---
APPROVED REPORT EKG Measurement Heart [id number] <Conclusion> Atrial fibrillation ST & T wave abnormality, consider inferior ischemia or digitalis effect ST & T wave abnormality, consider anterolateral ischemia or digitalis effect Abnormal ECG
--- NOTE | 2017-05-17 09:29 | RAD ---
HISTORY: chest pain/palpitations COMPARISON: 05/05/2017 FINDINGS: LUNGS: No active pulmonary disease. PLEURA: No significant pleural effusion identified, no pneumothorax apparent. CARDIOVASCULAR: Normal. OSSEOUS STRUCTURES: No significant abnormalities. VISUALIZED UPPER ABDOMEN: Normal. OTHER FINDINGS: None. IMPRESSION: No active disease.
== END 2017-05-17 09:02 | disposition left against medical advice (07) ==
LOC: ED 06:20 → ERH 08:06 → UNDOADMOB 08:06 → ED 09:02
DX: I48.91 Unspecified atrial fibrillation (principal); R07.9 Chest pain, unspecified; I10 Essential (primary) hypertension; Z95.0 Presence of cardiac pacemaker; F17.210 Nicotine dependence, cigarettes, uncomplicated